=== PATIENT | male | born 1950 | race Caucasian/White ===

== ENCOUNTER 2017-09-23 19:09 | Emergency (ER) | payer OTHER, SELFPAY ==
[2017-09-23 19:30] VITALS: BP 149/88; PULSE 82; RESP 18; TEMP 36.4; O2SAT 96
[2017-09-23] MEDS: Normal Saline 1,000 ML 150 ML IV (19:30)
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
[2017-09-23 20:37] LABS: Abs Immature Grans 0.01 k/cumm (0.0-0.09); Absolute Basophil Count 0.02 k/cumm (0.0-0.2); Absolute Eosinophil Count 0.15 k/cumm (0.0-0.7); Absolute Lymphocyte Count 1.48 k/cumm (1.2-3.4); Absolute Monocyte Count 0.68 k/cumm (0.11-0.7); Absolute Neutrophil Count 5.62 k/cumm (1.2-6.7); Basophils % 0.3; Eosinophils % 1.9; HCT 48.4 % (40.0-50.0); HGB 16.8 g/dL (13.5-17.5); Immature Grans % 0.1; Lymphocytes % 18.6; Mean Corp. HGB Concentration 34.7 g/dL (32.0-36.0); Mean Corpuscular Hemoglobin 31.7 pg (27.0-33.0); Mean Corpuscular Volume 91.3 fL (80-95); Mean Platelet Volume 9.1 fL (8.0-11.0); Monocytes % 8.5; Neutrophils % 70.6; Platelet Count 205 x1000/uL (130-400); RBC Distribution Width 14.6 % (11.8-14.1); White Blood Cell Count 7.96 k/cumm (4.4-10.8)
[2017-09-23 20:50] LABS: ALT 34 U/L (12-78); AST 23 U/L (15-37); Albumin 4.2 g/dL (3.4-5.0); Alkaline Phosphatase 97 U/L (46-116); Anion Gap 11.4 mmol/L (3-11); BUN 26 mg/dL (7-18); Bilirubin, Total 0.8 mg/dL (0.2-1.0); CO2 23.6 mmol/L (21.0-32.0); CREATININE 0.95 mg/dL (0.70-1.30); Chloride 104 mmol/L (98-107); Glucose 103 mg/dL (70-100); Potassium 4.1 mmol/L (3.5-5.1); Sodium 139 mmol/L (136-145); Total Protein 8.4 g/dL (6.4-8.2)
[2017-09-23 20:55] LABS: Bilirubin Negative (Negative); Blood Small (Negative); Clarity Cloudy; Glucose Negative (Negative); Ketones Negative (Negative); Leukocyte Esterase Moderate (Negative); Nitrite Positive (Negative); Specific Gravity 1.015 (1.005-1.025); Urobilinogen 0.2 EU/dL (Up TO 0.2); pH 5.5 (5-8)
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
[2017-09-23 21:05] LABS: Bacteria Many HPF (Negative); C & S Indicated? Yes; Casts Negative LPF (Negative); Crystals Negative HPF (Negative); Epithelial Cells Negative HPF (Negative); Mucus Negative (Negative); Other Cells Negative (Negative); RBC Negative (0-2); WBC >50 HPF (0-5)
[2017-09-23] MEDS: Omnipaque 350 MG/ML 100 ML BTL IJ (21:28)
[2017-09-23] MEDS: Ciprofloxacin 250 MG TAB PO (21:40)
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
--- NOTE | 2017-09-24 10:01 | NUR.NOTE ---
Nursing Note: Prescription for Cipro was called into [facility] pharmacy in [place]. Gena Allen
== END 2017-09-23 22:20 | disposition home or self-care (01) ==
PROVIDERS: Emergency Provider Emergency Medicine
DX: S39.91XA Unspecified injury of abdomen, initial encounter (principal); N39.0 Urinary tract infection, site not specified; M79.644 Pain in right finger(s); V47.5XXA Car driver injured in collision with fixed or stationary object in traffic accident, initial encounter; Z87.440 Personal history of urinary (tract) infections; I10 Essential (primary) hypertension
CPT/HCPCS: 36415; 74177; 80053; 87077; 96361; 99285; 71260; 73140; 81003; 81015; 85025; 85610; 87086; 87186; 99284; J3490

== ENCOUNTER 2017-10-19 18:03 | Emergency (ER) | payer MEDICARE, SELFPAY ==
[2017-10-19 18:06] VITALS: PULSE 88; RESP 18; TEMP 36.5; O2SAT 98
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
[2017-10-19 18:43] LABS: Bilirubin Negative (Negative); Blood Large (Negative); Clarity Cloudy; Glucose Negative (Negative); Ketones Trace mg/dL (Negative); Leukocyte Esterase Large (Negative); Nitrite Positive (Negative); Specific Gravity 1.025 (1.005-1.025); Urobilinogen 0.2 EU/dL (Up TO 0.2); pH 5.5 (5-8)
[2017-10-19 19:06] LABS: Bacteria Few HPF (Negative); Casts Negative LPF (Negative); Crystals Negative HPF (Negative); Epithelial Cells Negative HPF (Negative); Mucus Negative (Negative); RBC >50 (0-2); WBC >50 HPF (0-5)
[2017-10-19 19:07] LABS: C & S Indicated? Yes
[2017-10-19] MEDS: LEVOFLOXACIN 500 MG, LEVOFLOXACIN 250 MG 750 MG PO (19:18)
[2017-10-19 19:20] VITALS: BP 140/99; PULSE 73; RESP 16; TEMP 36.9
--- NOTE | 2017-10-21 16:34 | W.ED.FU ---
Follow Up Plan: Jeff Méndez was seen here 10/19/17 and diagnosed with UTI and discharged home on Levaquin. Culture resulted today positive for MRSA, resistant to Cipro. Culture was sensitive to Bactrim. I called the patient and discussed the results with him and the plan for him to stop taking levofloxacin and switch to Bactrim. He is amenable to the plan, and results that he is feeling better with symptoms improving. He requested that I call the prescription in to [facility] in [place], which I did. Prescription was for double strength Bactrim twice daily for 3 days.
--- NOTE | 2017-10-21 16:37 | ED.FU.B_ITS ---
Follow Up Plan: Jeff Méndez was seen here 10/19/17 and diagnosed with UTI and discharged home on Levaquin. Culture resulted today positive for MRSA, resistant to Cipro. Culture was sensitive to Bactrim. I called the patient and discussed the results with him and the plan for him to stop taking levofloxacin and switch to Bactrim. He is amenable to the plan, and results that he is feeling better with symptoms improving. He requested that I call the prescription in to [facility] in [place], which I did. Prescription was for double strength Bactrim twice daily for 3 days.
== END 2017-10-19 19:41 | disposition home or self-care (01) ==
PROVIDERS: Emergency Provider Nurse Practitioner Family
DX: N39.0 Urinary tract infection, site not specified (principal); B95.62 Methicillin resistant Staphylococcus aureus infection as the cause of diseases classified elsewhere
CPT/HCPCS: 87077; 99283; 81003; 81015; 87086; 87186

== ENCOUNTER 2017-10-31 17:15 | Outpatient (REF) | payer MEDICARE, SELFPAY | END 2017-10-31 17:35 | LOC: LBN 17:15 | PROVIDERS: Visit Provider Nurse Practitioner Gerontology | DX: N39.0 Urinary tract infection, site not specified (principal) | CPT/HCPCS: 87077; 87086; 87186 ==

== ENCOUNTER → 2017-11-25 10:54 | Outpatient (BNVA) | payer MEDICARE, SELFPAY | PROVIDERS: Visit Provider Urology | DX: R33.9 Retention of urine, unspecified (principal); Z87.440 Personal history of urinary (tract) infections | CPT/HCPCS: 99213 ==

== ENCOUNTER 2018-03-18 12:10 | Outpatient (REF) | payer MEDICARE, SELFPAY ==
[2018-03-18 15:09] LABS: Bilirubin Negative (Negative); Blood Small (Negative); Clarity Sl Cloudy; Glucose Negative (Negative); Ketones Trace mg/dL (Negative); Leukocyte Esterase Small (Negative); Nitrite Positive (Negative); Urobilinogen 0.2 EU/dL (Up TO 0.2); pH 5.5 (5-8)
[2018-03-18 15:20] LABS: Bacteria Many HPF (Negative); C & S Indicated? Yes; Casts Negative LPF (Negative); Crystals Negative HPF (Negative); Epithelial Cells Few HPF (Negative); Mucus Negative (Negative); Other Cells Negative (Negative); WBC >50 HPF (0-5)
== END 2018-03-18 12:30 ==
LOC: LBN 12:10
PROVIDERS: Visit Provider Urology
DX: N39.0 Urinary tract infection, site not specified (principal)
CPT/HCPCS: 87077; 81003; 81015; 87086; 87186

== ENCOUNTER → 2018-03-31 12:27 | Outpatient (BNVA) | payer MEDICARE, SELFPAY | PROVIDERS: Visit Provider Nurse Practitioner Gerontology | DX: N39.0 Urinary tract infection, site not specified (principal); B95.62 Methicillin resistant Staphylococcus aureus infection as the cause of diseases classified elsewhere | CPT/HCPCS: 99213 ==

== ENCOUNTER 2018-03-31 18:36 | Outpatient (REF) | payer MEDICARE, SELFPAY | END 2018-03-31 18:56 | LOC: LBN 18:36 | PROVIDERS: Visit Provider Nurse Practitioner Gerontology | DX: N39.0 Urinary tract infection, site not specified (principal) | CPT/HCPCS: 87077; 87086; 87186 ==

== ENCOUNTER 2018-04-03 12:00 | Outpatient (RCR) | payer MEDICARE, SELFPAY ==
[2018-04-02] MEDS: Normal Saline Flush 10 ML SYR IVP (13:03)
[2018-04-03] MEDS: Normal Saline Flush 10 ML SYR IVP (13:34)
== END 2018-04-17 23:59 | disposition home or self-care (01) ==
LOC: INF 12:00
PROVIDERS: Visit Provider Nurse Practitioner Gerontology
DX: N39.0 Urinary tract infection, site not specified (principal)
CPT/HCPCS: 96365; J0878

== ENCOUNTER 2018-06-11 13:14 | Outpatient (CLI) | payer MEDICARE, SELFPAY | END 2018-06-11 13:34 | PROVIDERS: Visit Provider Urology | DX: N39.0 Urinary tract infection, site not specified (principal) | CPT/HCPCS: 87077; 87086; 87186 ==

== ENCOUNTER 2018-06-13 11:58 | Outpatient (RCR) | payer MEDICARE, SELFPAY ==
[2018-06-13] MEDS: Normal Saline Flush 10 ML SYR IVP (13:30)
== END 2018-06-17 23:59 | disposition home or self-care (01) ==
LOC: INF 11:58
PROVIDERS: Visit Provider Urology
DX: N39.0 Urinary tract infection, site not specified (principal)
CPT/HCPCS: 96365; J0878

== ENCOUNTER → 2018-06-17 09:34 | Outpatient (BNVA) | payer MEDICARE, SELFPAY | PROVIDERS: Visit Provider Urology | DX: R31.0 Gross hematuria (principal); Z87.440 Personal history of urinary (tract) infections; Z87.442 Personal history of urinary calculi; Z79.01 Long term (current) use of anticoagulants; I48.91 Unspecified atrial fibrillation | CPT/HCPCS: 99213 ==

== ENCOUNTER 2018-06-18 07:17 | Outpatient (CLI) | payer MEDICARE, SELFPAY ==
[2018-06-18 08:59] LABS: CREATININE 1.05 mg/dL (0.70-1.30)
--- NOTE | 2018-06-18 09:15 | DI.CT_ITS ---
SYMPTOM/DIAGNOSIS: HEMATURIA, R31.[address]: Comparison is made with 09/23/17 and 11/09/15. The noncontrast examination shows no evidence of nephrolithiasis, ureterolithiasis or hydronephrosis. No bladder stones are appreciated. There is scarring in the lung bases. Following contrast administration, CT scan of the abdomen and pelvis was performed. There are several tiny hypodense lesions seen within the liver. They are too small for further characterization. They appear stable and likely reflect cysts. No suspicious hepatic masses are seen. There are multiple stones seen within the gallbladder. No biliary ductal dilatation is present. The pancreas is unremarkable. Incidental note is made of a small duodenal diverticulum adjacent to the second portion of the duodenum. The spleen and adrenal glands are unremarkable. The kidneys show normal and symmetric enhancement. No suspicious solid renal mass is appreciated. The urinary bladder is intact. There is mild diffuse thickening of the wall of the urinary bladder. This was present on prior examinations. This may represent chronic bladder outlet obstruction or neurogenic bladder. Reproductive organs are unremarkable as visualized. The bowel shows no evidence of obstruction or inflammation. There is a normal appendix present. There is atherosclerosis of the abdominal aorta but no aneurysmal dilatation is present. No significant abdominal or pelvic adenopathy, ascites or pneumoperitoneum is seen. Surgical clips are seen in the central abdomen. Due to the patient's body habitus, portions of the anterior abdominal wall, particularly on the left, are not contained within the examination. Degenerative changes are seen in the spine. There is marked central spinal stenosis seen at L 2-3, L 3-4 and L 4-5. Delayed images through the renal collecting system were performed. No filling defects are present in the renal collecting system. IMPRESSION: 1. No evidence of nephrolithiasis or hydronephrosis. No evidence of a renal or bladder mass. 2. Persistent diffuse urinary bladder wall thickening. This may be sequelae of chronic bladder outlet obstruction or neurogenic bladder. Cystitis cannot be entirely excluded. Please correlate clinically. 3. Cholelithiasis. No evidence of biliary ductal dilatation.
[2018-06-18] MEDS: Omnipaque 350 MG/ML 100 ML BTL IJ (09:35)
== END 2018-06-18 07:37 ==
PROVIDERS: PCP Internal Medicine; Visit Provider Urology
DX: R31.0 Gross hematuria (principal); N32.89 Other specified disorders of bladder; K80.20 Calculus of gallbladder without cholecystitis without obstruction
CPT/HCPCS: 74178; 82565; J3490

== ENCOUNTER → 2018-06-19 12:57 | Outpatient (BNVA) | payer MEDICARE, SELFPAY | PROVIDERS: PCP Internal Medicine; Visit Provider Urology | DX: R33.9 Retention of urine, unspecified (principal); N39.0 Urinary tract infection, site not specified | CPT/HCPCS: 52000; 81003; 99213 ==

== ENCOUNTER 2018-06-19 14:39 | Outpatient (RCR) | payer MEDICARE, SELFPAY | END 2018-07-18 23:59 | disposition home or self-care (01) | LOC: INF 14:39 | PROVIDERS: PCP Internal Medicine; Visit Provider Urology | DX: N39.0 Urinary tract infection, site not specified (principal) | CPT/HCPCS: 52000; 81003; 96365; 99213; 87086; J0878 ==

== ENCOUNTER 2018-06-19 16:03 | Outpatient (REF) | payer MEDICARE, SELFPAY | END 2018-06-19 16:23 | LOC: LBN 16:03 | PROVIDERS: PCP Internal Medicine; Visit Provider Urology | DX: R31.9 Hematuria, unspecified (principal); N39.0 Urinary tract infection, site not specified; A41.9 Sepsis, unspecified organism | CPT/HCPCS: 87086 ==

== ENCOUNTER 2018-07-01 10:41 | Outpatient (REF) | payer MEDICARE, SELFPAY | END 2018-07-01 11:01 | LOC: LBN 10:41 | PROVIDERS: PCP Internal Medicine; Visit Provider Urology | DX: N39.0 Urinary tract infection, site not specified (principal) | CPT/HCPCS: 87077; 87086; 87186 ==

== ENCOUNTER 2018-08-04 17:08 | Inpatient (IN) | payer MEDICARE, SELFPAY ==
[2018-08-04] VITALS (7 sets, daily range): BP systolic 102–141; BP diastolic 68–85; PULSE 77–84; RESP 14–20; TEMP 36.6–37.2; O2SAT 93–97
--- NOTE | 2018-08-04 17:37 | DI.CT_ITS ---
SYMPTOM/DIAGNOSIS: ABD PAIN, TTP LUQ, DIARRHEA ABDOMEN AND PELVIC CT: Comparison is made with 06/18/18. Images were performed from the lung bases through the ischial tuberosities after IV and without oral contrast. A small portion of the anterior abdominal wall is not included in the field of view due to the patient's body habitus. The stomach is quite distended. There are also abnormally distended loops of proximal small bowel. Distal bowel loops are decompressed. There is an apparent transition point in the mid abdomen near surgical clips. There is no evidence of free air or free fluid. The urinary bladder is again noted to be quite distended and shows wall thickening. The prostate appears small and the patient could be status post prostatectomy. The appendix appears normal. Marked thinning of the anterior abdominal wall is again noted. There is scarring at the lung bases. There are a few tiny liver cysts. Gallstones are noted. There is no biliary dilatation or gallbladder wall thickening. The pancreas and adrenals are unremarkable. There is no evidence of hydronephrosis or renal calculi. IMPRESSION: Small bowel obstruction.
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
[2018-08-04] MEDS: Normal Saline 1,000 ML 1000 ML IV (18:01)
[2018-08-04] MEDS: Ondansetron 4 MG/2 ML VIAL IVP (18:01)
[2018-08-04 18:14] LABS: Abs Immature Grans 0.02 k/cumm (0.0-0.09); Absolute Basophil Count 0.01 k/cumm (0.0-0.2); Absolute Eosinophil Count 0.07 k/cumm (0.0-0.7); Absolute Lymphocyte Count 0.91 k/cumm (1.2-3.4); Absolute Monocyte Count 0.77 k/cumm (0.11-0.7); Absolute Neutrophil Count 8.89 k/cumm (1.2-6.7); Basophils % 0.1; Eosinophils % 0.7; HCT 47.8 % (40.0-50.0); Immature Grans % 0.2; Lymphocytes % 8.5; Mean Corp. HGB Concentration 33.5 g/dL (32.0-36.0); Mean Corpuscular Volume 92.6 fL (80-95); Mean Platelet Volume 9.3 fL (8.0-11.0); Monocytes % 7.2; Neutrophils % 83.3; Platelet Count 245 x1000/uL (130-400); RBC 5.16 m/cumm (4.50-6.00); RBC Distribution Width 15.3 % (11.8-14.1); White Blood Cell Count 10.67 k/cumm (4.4-10.8)
[2018-08-04 18:28] LABS: ALT 25 U/L (12-78); AST 23 U/L (15-37); Albumin 3.8 g/dL (3.4-5.0); Alkaline Phosphatase 72 U/L (46-116); Anion Gap 10.8 mmol/L (3-11); BUN 23 mg/dL (7-18); CO2 30.2 mmol/L (21.0-32.0); CREATININE 0.96 mg/dL (0.70-1.30); Calcium 9.9 mg/dL (8.5-10.1); Chloride 102 mmol/L (98-107); Glucose 121 mg/dL (70-100); Lipase 125 U/L (73-393); Potassium 4.3 mmol/L (3.5-5.1); Sodium 143 mmol/L (136-145); Total Protein 7.9 g/dL (6.4-8.2)
[2018-08-04] MEDS: Omnipaque 350 MG/ML 100 ML BTL IJ (19:10)
[2018-08-04] MEDS: Normal Saline Flush 10 ML SYR IVP ×2 (19:21→23:07)
--- NOTE | 2018-08-04 20:29 | DI.VRAD_ITS ---
Addendum created by Sasha Altman MD on 08/04/2018 8:34:43 PM EDT THIS REPORT CONTAINS FINDINGS THAT MAY BE CRITICAL TO PATIENT CARE. The findings were verbally communicated via telephone conference with MIGDALIA DENIS at 8:33 PM EDT on 08/04/2018. The findings were acknowledged and understood. Initial report created on 08/04/2018 8:29:22 PM EDT EXAM: CT Abdomen and Pelvis With Contrast EXAM DATE/TIME: 08/04/2018 5:39 PM CLINICAL HISTORY: 68 years old, male; Localized; Left upper quadrant (luq); Patient HX: Abdominal pain, ttp luq, loose stool, diarrhea TECHNIQUE: Imaging protocol: Axial computed tomography images of the abdomen and pelvis with intravenous contrast. Coronal and sagittal reformatted images were created and reviewed. COMPARISON: CT ABDOMEN PELVIS WO/W 02/22/2018 09:17 FINDINGS: Lungs: There is reticular markings at the lung bases similar to the prior study consistent with scar. There are stable punctate calcifications in the right posterior costophrenic angle. Heart: The heart remains enlarged with coronary artery calcifications. Mediastinum: There is a small hiatal hernia. ABDOMEN: Liver: Stable multiple hypodense densities throughout the liver consistent with hepatic cysts. Stable calcified gallstones. No dilated biliary ducts. Gallbladder and bile ducts: See Liver Finding. Pancreas: Normal. No ductal dilation. Spleen: Normal. No splenomegaly. Adrenals: Normal. No mass. Kidneys and ureters: Normal. No hydronephrosis. Stomach and bowel: There is marked fluid distention of the stomach and proximal small bowel with a transition near surgical clips in the right mid abdomen series 4 image 46 on the axial sequences. The colon and terminal ileum are unremarkable. Appendix: No evidence of appendicitis. PELVIS: Bladder: Again noted is a large ventral abdominal wall hernia containing liver, stomach, small bowel, and bladder. The bladder is distended with thickened mcdonnell and herniates through the large ventral abdominal wall hernia. The bladder is distended and extends to the L5 vertebral body superiorly consistent with chronic bladder outlet obstruction. Reproductive: The prostate and seminal vesicles are unremarkable. ABDOMEN and PELVIS: Intraperitoneal space: Normal. No free air. No significant fluid collection. Bones/joints: There is multilevel degenerative changes of the thoracic and lumbar spine. Suspect old right posterior rib fractures. Degenerative changes both hips. Soft tissues: Again noted large ventral abdominal wall hernia similar to prior study. There is fat distention of the inguinal canals. Due to the patient's body habitus, portions of the anterior abdominal wall are not contained within the examination. Vasculature: Normal. No abdominal aortic aneurysm. Lymph nodes: Normal. No enlarged lymph nodes. IMPRESSION: 1. High-grade small bowel obstruction with transition in the right mid abdomen with fluid distended stomach and proximal small bowel. 2. Chronic bladder outlet obstruction as discussed above. 3. Bibasilar reticular markings with stable punctate calcifications. 4. Stable cardiomegaly and coronary artery calcification. 5. Large ventral abdominal wall hernia. 6. Stable hepatic cysts. Stable gallstones. 7. Hiatal hernia. 8. Suspect old right posterior rib fractures. Stable degenerative changes of the spine and hips. Dictated and Authenticated by: Sasha Altman MD. Ordering:LINDEN Rodriguez MD
[2018-08-04] MEDS: Lidocaine 2% Viscous 15 ML CUP (20:45)
[2018-08-04 21:00] LABS: Bilirubin Negative (Negative); Blood Moderate (Negative); Clarity Sl Cloudy; Glucose Negative (Negative); Ketones Negative (Negative); Leukocyte Esterase Small (Negative); Nitrite Positive (Negative); Specific Gravity 1.015 (1.005-1.025); Urobilinogen 0.2 EU/dL (Up TO 0.2); pH 7.5 (5-8)
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
[2018-08-04 21:10] LABS: Bacteria Many HPF (Negative); Crystals Negative HPF (Negative); Epithelial Cells Rare HPF (Negative); Other Cells Negative (Negative); RBC >50 (0-2); WBC 20-50 HPF (0-5)
[2018-08-04 21:11] LABS: C & S Indicated? Yes; Casts Negative LPF (Negative); Mucus Moderate (Negative)
--- NOTE | 2018-08-04 21:51 | DI.RAD_ITS ---
SYMPTOM/DIAGNOSIS: NG PLACED PORTABLE CHEST: Two views are performed, both of which show suboptimal penetration. A nasogastric tube has been placed. The tip is seen in the fundus of the stomach. The heart size appears normal. The lungs show mild basilar scarring. No infiltrate or effusion or pulmonary edema is visible. IMPRESSION: Status post NG tube placement.
--- NOTE | 2018-08-04 22:27 | DI.VRAD_ITS ---
EXAM: XR Chest, 1 View EXAM DATE/TIME: 08/04/2018 9:51 PM CLINICAL HISTORY: 68 years old, male; Device placement; Patient HX: Ng tube placement TECHNIQUE: Imaging protocol: XR of the chest, 1 view. COMPARISON: CR CHEST 2 VIEWS PA,LAT 05/03/2016 10:46 FINDINGS: Tubes, catheters and devices: There is history of placement of a nasogastric tube. There are 2 films submitted for interpretation. On the second film the tip of the tube is just below the left hemidiaphragm. Lungs: There is mild reticular markings at the lung bases. There is no focal consolidation. There is blunting of the lateral costophrenic angle. Pleural space: See Lungs Finding. Heart/Mediastinum: The heart is enlarged. Bones/joints: Result available degenerative changes of the thoracic spine. There is degenerative changes of both shoulders. IMPRESSION: Nasogastric tube just below the left hemidiaphragm. But the nasogastric tube is not well seen due to film technique. Dictated and Authenticated by: Sasha Altman MD. Ordering:LINDEN Rodriguez MD
[2018-08-04] MEDS: Lactated Ringers 1,000 ML 125 ML IV (23:07)
[2018-08-05] MEDS: Pramipexole 0.5 MG TAB 2 MG PO ×2 (00:57→21:14)
[2018-08-05] MEDS: Enoxaparin 40 MG/0.4 ML SYR SC (01:02)
[2018-08-05] MEDS: FAMOTIDINE 20 MG/50 ML BAG 200 MG IVPB ×3 (01:03→21:19)
[2018-08-05] MEDS: DAPTOmycin 500 MG in Normal Saline 50 ML 100 MG IVPB (01:41)
--- NOTE | 2018-08-05 01:51 | NUR.NOTE ---
Nursing Note: Applied continuous SaO2 monitor as patient is not wearing CPAP d/t NG tube, nurse explained purpose and benefits of monitor and risks of not wearing CPAP, pt refuses to wear continuous monitor at this time. Pt SaO2 97% RA prior to removal.
[2018-08-05 04:16] VITALS: BP 109/75; PULSE 77; RESP 18; TEMP 37; O2SAT 97
[2018-08-05] MEDS: Lactated Ringers 1,000 ML 125 ML IV ×2 (05:53→14:24)
[2018-08-05 07:11] LABS: Anion Gap 6.2 mmol/L (3-11); BUN 22 mg/dL (7-18); CO2 24.8 mmol/L (21.0-32.0); CREATININE 0.89 mg/dL (0.70-1.30); Calcium 8.8 mg/dL (8.5-10.1); Chloride 108 mmol/L (98-107); Glucose 100 mg/dL (70-100); Sodium 139 mmol/L (136-145)
--- NOTE | 2018-08-05 07:21 | PGE_ITS ---
Documented by User: ABRAHAM Limon 08/05/18 07:24 Date of Service Date of service: 08/05/18 Time of Service: 07:19 Assessment and Plan (1) History of laparotomy: Current visit: No Status: Chronic (2) Small bowel obstruction: Current visit: Yes Status: Acute Denies abdominal pain, N or V. (+) BMs. Passing some flatus. DIET- Continue NPO. NG tube- Minimal out over night <50ccs. Will order for the NG tube to be clamped and to check residuals in 3 hours. ACTIVITY- Encouraged ambulation and sitting up OOB. PAIN- Patient denies pain at this time. Subjective Interval history since last seen: I am feeling much better than last night. Denies any nausea or vomiting. He has been tolerating the NG tube well. Reports that he had 2 BMs last night of loose stool. Exam Const General: cooperative and comfortable Orientation: alert and oriented x3 Resp Effort & Inspection: normal respiratory effort, no audible wheezes and no cough GI Inspection: normal to inspection, non-distended and obesity Palpation: soft, no guarding and nontender Auscultation: normal bowel sounds Objective Objective Clinical Data: Abnormal lab results 08/04/18 08/04/18 08/04/18 Range/Units 18:00 18:00 20:45 RDW 15.3 H (11.8-14.1) % Absolute Neutrophils 8.89 H (1.2-6.7) k/cumm Absolute Lymphocytes 0.91 L (1.2-3.4) k/cumm Absolute Monocytes 0.77 H (0.11-0.7) k/cumm Chloride (98-107) mmol/L BUN 23 H (7-18) mg/dL Glucose 121 H (70-100) mg/dL Urine Protein 30 H (Negative) mg/dL Urine Blood Moderate H (Negative) Urine Nitrite Positive H (Negative) Ur Leukocyte Esterase Small H (Negative) Urine RBC >50 H (0-2) 08/05/18 Range/Units 06:14 RDW (11.8-14.1) % Absolute Neutrophils (1.2-6.7) k/cumm Absolute Lymphocytes (1.2-3.4) k/cumm Absolute Monocytes (0.11-0.7) k/cumm Chloride 108 H (98-107) mmol/L BUN 22 H (7-18) mg/dL Glucose (70-100) mg/dL Urine Protein (Negative) mg/dL Urine Blood (Negative) Urine Nitrite (Negative) Ur Leukocyte Esterase (Negative) Urine RBC (0-2) Vital Signs Temperature 37 C 08/05/18 04:16 Temperature Source Tympanic 08/05/18 04:16 Pulse 77 08/05/18 04:16 Pulse Rhythm Regular 08/04/18 23:52 Respiratory Rate 18 08/05/18 04:16 Respiratory Effort Non-Labored 08/04/18 23:52 Respiratory Depth Normal 08/04/18 23:52 Respiratory Pattern Normal 08/04/18 23:52 Blood Pressure 109/75 08/05/18 04:16 Blood Pressure Position Sitting 08/04/18 17:14 Pulse Oximetry 97 08/05/18 04:16 Oxygen Delivery Method Room Air 08/05/18 04:16 Oxygen Flow Rate 0 08/05/18 04:16 Pain Level 0 08/04/18 23:52 Intake & Output 08/04/18 08/05/18 08/05/18 18:59 06:59 18:59 Intake Total 1994.833 / 833 Output Total 950 / 950 Balance 1045.833 / 1045.833 Weight 132 kg 132 kg Intake: IV 1945.833 / 1945.833 Oral 50 / 50 Output: Urine 950 / 950 Other: # Voids 1 Laboratory Results WBC 10.67 k/cumm (4.4-10.8) 08/04/18 18:00 RBC 5.16 m/cumm (4.50-6.00) 08/04/18 18:00 Hgb 16.0 g/dL (13.5-17.5) 08/04/18 18:00 Hct 47.8 % (40.0-50.0) 08/04/18 18:00 MCV 92.6 fL (80-95) 08/04/18 18:00 MCH 31.0 pg (27.0-33.0) 08/04/18 18:00 MCHC 33.5 g/dL (32.0-36.0) 08/04/18 18:00 RDW 15.3 % (11.8-14.1) H 08/04/18 18:00 Plt Count 245 x1000/uL (130-400) 08/04/18 18:00 MPV 9.3 fL (8.0-11.0) 08/04/18 18:00 Immature Gran % 0.2 08/04/18 18:00 Neutrophils % 83.3 08/04/18 18:00 Lymphocytes % 8.5 08/04/18 18:00 Monocytes % 7.2 08/04/18 18:00 Eosinophils % 0.7 08/04/18 18:00 Basophils % 0.1 08/04/18 18:00 Absolute Neutrophils 8.89 k/cumm (1.2-6.7) H 08/04/18 18:00 Absolute Lymphocytes 0.91 k/cumm (1.2-3.4) L 08/04/18 18:00 Absolute Monocytes 0.77 k/cumm (0.11-0.7) H 08/04/18 18:00 Absolute Eosinophils 0.07 k/cumm (0.0-0.7) 08/04/18 18:00 Absolute Basophils 0.01 k/cumm (0.0-0.2) 08/04/18 18:00 Sodium 139 mmol/L (136-145) 08/05/18 06:14 Potassium 4.0 mmol/L (3.5-5.1) 08/05/18 06:14 Chloride 108 mmol/L (98-107) H 08/05/18 06:14 Carbon Dioxide 24.8 mmol/L (21.0-32.0) 08/05/18 06:14 Anion Gap 6.2 mmol/L (3-11) 08/05/18 06:14 BUN 22 mg/dL (7-18) H 08/05/18 06:14 Creatinine 0.89 mg/dL (0.70-1.30) 08/05/18 06:14 Estimated GFR/1.73 m2 >= 60.00 (mL/min/1.73m2) 08/05/18 06:14 Glucose 100 mg/dL (70-100) 08/05/18 06:14 Calcium 8.8 mg/dL (8.5-10.1) 08/05/18 06:14 Magnesium 2.0 mg/dL (1.8-2.4) 08/05/18 06:14 Total Bilirubin 1.0 mg/dL (0.2-1.0) 08/04/18 18:00 AST 23 U/L (15-37) 08/04/18 18:00 ALT 25 U/L (12-78) 08/04/18 18:00 Alkaline Phosphatase 72 U/L (46-116) 08/04/18 18:00 Total Protein 7.9 g/dL (6.4-8.2) 08/04/18 18:00 Albumin 3.8 g/dL (3.4-5.0) 08/04/18 18:00 Lipase 125 U/L (73-393) 08/04/18 18:00 Urine Color Yellow (Yellow) 08/04/18 20:45 Urine Clarity Sl cloudy 08/04/18 20:45 Urine pH 7.5 (5-8) 08/04/18 20:45 Ur Specific [place] 1.015 (1.005-1.025) 08/04/18 20:45 Urine Protein 30 mg/dL (Negative) H 08/04/18 20:45 Urine Ketones Negative mg/dL (Negative) 08/04/18 20:45 Urine Blood Moderate (Negative) H 08/04/18 20:45 Urine Nitrite Positive (Negative) H 08/04/18 20:45 Urine Bilirubin Negative (Negative) 08/04/18 20:45 Urine Urobilinogen 0.2 EU/dL (Up TO 0.2) 08/04/18 20:45 Ur Leukocyte Esterase Small (Negative) H 08/04/18 20:45 Urine RBC >50 (0-2) H 08/04/18 20:45 Urine WBC 20-50 HPF (0-5) 08/04/18 20:45 Ur Epithelial Cells Rare HPF (Negative) 08/04/18 20:45 Urine Crystals Negative HPF (Negative) 08/04/18 20:45 Urine Bacteria Many HPF (Negative) 08/04/18 20:45 Urine Casts Negative LPF (Negative) 08/04/18 20:45 Urine Mucus Moderate (Negative) 08/04/18 20:45 Urine Other Negative (Negative) 08/04/18 20:45 Ur Culture Indicated? Yes 08/04/18 20:45 Urine Glucose Negative mg/dL (Negative) 08/04/18 20:45 Documented by User: Geovanna Barnes, DO 08/05/18 09:36 Assessment and Plan (1) Recurrent UTI (urinary tract infection): Current visit: No Status: Chronic pt see and examined agree w/ above pt feeling better today had lg BM no pain or tightness today like he was having at home his nl s/s of uti or withdrawl- his daughter feels he was having these s/s yest He is a chronic pt of Dr. Hill. I did notify Dr Hill's office if he has time to stop by and see the pt. UA was dirty cult is pd. He is on rocephin pt is a long time standing self- cath person
[2018-08-05 07:34] LABS: Platelet Count 242 x1000/uL (130-400)
--- NOTE | 2018-08-05 09:09 | DI.RAD_ITS ---
SYMPTOM/DIAGNOSIS: SBO FLAT AND UPRIGHT ABDOMEN: Comparison is made with deputy register of deeds view of the CT abdomen and pelvis 04 August 2018 A nasogastric tube has been placed with the tip in the fundus of the stomach. The side hole may be in the distal esophagus. There are again noted to be dilated loops of small bowel greatest in the left upper and mid portions of the abdomen. The degree of dilatation may have slightly decreased when compared with the previous exam. There is no evidence of free air. There are tiny bilateral pleural effusions and mild basilar atelectasis. IMPRESSION: Mild improvement of small bowel dilatation status post placement of nasogastric tube.
[2018-08-05 09:15] VITALS: BP 125/82; PULSE 68; RESP 18; TEMP 36.3; O2SAT 95
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
[2018-08-05] MEDS: Furosemide 40 MG/4 ML VIAL IVP (09:40)
[2018-08-05] MEDS: Tamsulosin 0.4 MG CAPCR PO (09:40)
--- NOTE | 2018-08-05 11:43 | PDOC.CMIN ---
Care Management Initial Assess REASON FOR HOSPITALIZATION:: SBO PAST MEDICAL HISTORY/PAST SURGICAL HISTORY:: Medical: chronic bladder outlet obstruction, bibasilar reticular markings with stable punctate calcifications, stable cardiomegaly and coronary artery calcification, lg ventral abdominal hernia, hepatic cysts, gallstones, hiatal hernia,DJD spine and hips, ? old rib fxs, chronic marijuana use, TBI, cognitive deficit as late effect of TBI, memory deficits, sepsis associated hypotension, mental status change, recurrent cellulitis/abscess of lower leg, recurrent UTI's, obesity, MARTÍN, chronic a-fib, depression with anxiety, restless leg syndrome. Surgical: H/O laparotomy PREVIOUS FUNCTIONAL STATUS/SOCIAL/FAMILY SUPPORTS:: He lives with his Karissa in [place], but they are currently residing at their camp in [place]. They have two adult children, a son and daughter, both of whom live locally. They have three grandchildren. They live very separate lives with each having a floor in the home. He lives in the basement. They have participated in counseling in the past. He is a who gets all [facility] primary [facility] [place]. states his daughter Anel is primary caregiver. He is usually independent with ADL's and can ambulate independently. CURRENT FUNCTIONAL STATUS:: He is sitting up in chair in room when CM enters. There are multiple family members in room. His came in and was able to answer some of questions re his insurance. ADVANCE DIRECTIVES:: Document is on file at [facility]. His Karissa is agent anf daughter Anel is alternate. Has patient been provided with information about the portal?: Yes Did the patient sign up for the portal?: No INSURANCE COVERAGE / FINANCIAL ISSUES:: Medicare. Receives PCP care at [facility] in [place], and specialty care at [facility]. Does not have supplemental insurance for his Medicare, although he did have it at one time previously. CURRENT HOME/COMMUNITY SERVICES/EQUIPMENT:: No services. Uses CPAP, and also does self-cath at home. PRIMARY CARE PHYSICIAN:: Remberto Aguilar MD at [facility] [place]. POTENTIAL DISCHARGE NEEDS:: Will need follow-up with PCP and surgeon as directed. PATIENT/FAMILY EDUCATION NEEDS:: Review d/c instructions re meds and activity levels. Review Ask me How questions to assure patient/family understanding of reason for hospitalization. ANTICIPATED BARRIERS TO DISCHARGE:: none identified TRANSPORTATION:: via car with family PLAN:: d/c home as per MD, no services anticipated.
[2018-08-05] MEDS: Magnesium Citrate 300 ML BTL PO (13:17)
--- NOTE | 2018-08-05 14:20 | INITIAL_ITS ---
Care Management Initial Assess REASON FOR HOSPITALIZATION:: SBO PAST MEDICAL HISTORY/PAST SURGICAL HISTORY:: Medical: chronic bladder outlet obstruction, bibasilar reticular markings with stable punctate calcifications, stable cardiomegaly and coronary artery calcification, lg ventral abdominal hernia, hepatic cysts, gallstones, hiatal hernia,DJD spine and hips, ? old rib fxs, chronic marijuana use, TBI, cognitive deficit as late effect of TBI, memory deficits, sepsis associated hypotension, mental status change, recurrent cellulitis/abscess of lower leg, recurrent UTI's, obesity, MARTÍN, chronic a-fib, depression with anxiety, restless leg syndrome. Surgical: H/O laparotomy PREVIOUS FUNCTIONAL STATUS/SOCIAL/FAMILY SUPPORTS:: He lives with his Karissa in [place], but they are currently residing at their camp in [place]. They have two adult children, a son and daughter, both of whom live locally. They have three grandchildren. They live very separate lives with each having a floor in the home. He lives in the basement. They have participated in counseling in the past. He is a who [place] all [place] [facility] [place] [facility] [place]. states his daughter Anel is primary caregiver. He is usually independent with ADL's and can ambulate independently. CURRENT FUNCTIONAL STATUS:: He is sitting up in chair in room when CM enters. There are multiple family members in room. His came in and was able to answer some of questions re his insurance. ADVANCE DIRECTIVES:: Document is on file at [facility]. His Karissa is agent anf daughter Anel is alternate. Has patient been provided with information about the portal?: Yes Did the patient sign up for the portal?: No INSURANCE COVERAGE / FINANCIAL ISSUES:: Medicare. Receives PCP care at [facility] in [place], and specialty care at [facility]. Does not have supplemental insurance for his Medicare, although he did have it at one time previously. CURRENT HOME/COMMUNITY SERVICES/EQUIPMENT:: No services. Uses CPAP, and also does self-cath at home. PRIMARY CARE PHYSICIAN:: Remberto [facility]ilar MD at [facility] [place]. POTENTIAL DISCHARGE NEEDS:: Will need follow-up with PCP and surgeon as directed. PATIENT/FAMILY EDUCATION NEEDS:: Review d/c instructions re meds and activity levels. Review Ask me How questions to assure patient/family understanding of reason for hospitalization. ANTICIPATED BARRIERS TO DISCHARGE:: none identified TRANSPORTATION:: via car with family PLAN:: d/c home as per MD, no services anticipated.
[2018-08-05 15:03] VITALS: BP 126/79; PULSE 83; RESP 17; TEMP 36.9; O2SAT 96
[2018-08-05] MEDS: levoFLOXacin 750 MG/150 ML BAG 100 MG IVPB (22:56)
[2018-08-06 00:37] VITALS: BP 115/86; PULSE 77; RESP 16; TEMP 37; O2SAT 96
[2018-08-06] MEDS: DAPTOmycin 500 MG in Normal Saline 50 ML 100 MG IVPB (00:37)
[2018-08-06] MEDS: Lactated Ringers 1,000 ML 75 ML IV (04:22)
--- NOTE | 2018-08-06 07:19 | W.PM.PROGNOT ---
Date of Service Date of service: 08/06/18 Time of Service: : Assessment and Plan (1) Small bowel obstruction: Current visit: Yes Status: Acute (+) BM and Bowel sounds. Abdominal pain has resolved. No nausea or vomiting. Tolerating a normal diet. Amb. Independently Disposition- D/C home later today. Subjective Interval history since last seen: Arrived with Mr. Méndez ambulating in the hallway independently. Hereports that he has been tolerating normal diet thus far. He ate a turkey sandwich last night. Denies any abdominal pain, nausea or vomiting. (+) BMs and urinating without difficulty. Exam Const General: cooperative, healthy appearing and comfortable Orientation: alert and oriented x3 Resp Effort & Inspection: normal respiratory effort, no audible wheezes and no cough GI Inspection: normal to inspection and obesity Palpation: soft, no guarding and nontender Auscultation: normal bowel sounds Objective Objective Clinical Data: Vital Signs Temperature 37.0 C 08/06/18 00:37 Temperature Source Skin 08/06/18 00:37 Pulse 77 08/06/18 00:37 Pulse Rhythm Regular 08/06/18 00:37 Respiratory Rate 16 08/06/18 00:37 Respiratory Effort 08/06/18 00:37 Respiratory Depth Normal 08/06/18 00:37 Respiratory Pattern Normal 08/06/18 00:37 Blood Pressure 115/86 08/06/18 00:37 Blood Pressure Position Sitting 08/04/18 17:14 Pulse Oximetry 96 08/06/18 00:37 Oxygen Delivery Method Room Air 08/06/18 00:37 Oxygen Flow Rate 0 08/06/18 00:37 Pain Level 0 08/06/18 00:37 Intake & Output 08/05/18 08/06/18 08/06/18 18:59 06:59 18:59 Intake Total 2127.083 / 3420.000 1292.917 / 3420.000 Output Total 3000 / 3000 Balance -872.917 / 776.170 4234.917 / 420.000 Intake: IV 1577.083 / 2100.000 522.917 / 2100.000 Oral 550 / 1320 770 / 1320 Output: Gastric Drainage 100 / 100 Left Nare 100 / 100 Urine 2900 / 2900 Other: Urine Color Yellow Urine Appearance Clear Comment pt self cath'd in br at this time and flushed. Stool Size Moderate Stool Characteristics Brown Voiding Methods Toilet Self-Catheterization Laboratory Results WBC 10.67 k/cumm (4.4-10.8) 08/04/18 18:00 RBC 5.16 m/cumm (4.50-6.00) 08/04/18 18:00 Hgb 16.0 g/dL (13.5-17.5) 08/04/18 18:00 Hct 47.8 % (40.0-50.0) 08/04/18 18:00 MCV 92.6 fL (80-95) 08/04/18 18:00 MCH 31.0 pg (27.0-33.0) 08/04/18 18:00 MCHC 33.5 g/dL (32.0-36.0) 08/04/18 18:00 RDW 15.3 % (11.8-14.1) H 08/04/18 18:00 Plt Count 242 x1000/uL (130-400) 08/05/18 06:14 MPV 9.3 fL (8.0-11.0) 08/04/18 18:00 Immature Gran % 0.2 08/04/18 18:00 Neutrophils % 83.3 08/04/18 18:00 Lymphocytes % 8.5 08/04/18 18:00 Monocytes % 7.2 08/04/18 18:00 Eosinophils % 0.7 08/04/18 18:00 Basophils % 0.1 08/04/18 18:00 Absolute Neutrophils 8.89 k/cumm (1.2-6.7) H 08/04/18 18:00 Absolute Lymphocytes 0.91 k/cumm (1.2-3.4) L 08/04/18 18:00 Absolute Monocytes 0.77 k/cumm (0.11-0.7) H 08/04/18 18:00 Absolute Eosinophils 0.07 k/cumm (0.0-0.7) 08/04/18 18:00 Absolute Basophils 0.01 k/cumm (0.0-0.2) 08/04/18 18:00 Sodium 139 mmol/L (136-145) 08/05/18 06:14 Potassium 4.0 mmol/L (3.5-5.1) 08/05/18 06:14 Chloride 108 mmol/L (98-107) H 08/05/18 06:14 Carbon Dioxide 24.8 mmol/L (21.0-32.0) 08/05/18 06:14 Anion Gap 6.2 mmol/L (3-11) 08/05/18 06:14 BUN 22 mg/dL (7-18) H 08/05/18 06:14 Creatinine 0.89 mg/dL (0.70-1.30) 08/05/18 06:14 Estimated GFR/1.73 m2 >= 60.00 (mL/min/1.73m2) 08/05/18 06:14 Glucose 100 mg/dL (70-100) 08/05/18 06:14 Calcium 8.8 mg/dL (8.5-10.1) 08/05/18 06:14 Magnesium 2.0 mg/dL (1.8-2.4) 08/05/18 06:14 Total Bilirubin 1.0 mg/dL (0.2-1.0) 08/04/18 18:00 AST 23 U/L (15-37) 08/04/18 18:00 ALT 25 U/L (12-78) 08/04/18 18:00 Alkaline Phosphatase 72 U/L (46-116) 08/04/18 18:00 Total Protein 7.9 g/dL (6.4-8.2) 08/04/18 18:00 Albumin 3.8 g/dL (3.4-5.0) 08/04/18 18:00 Lipase 125 U/L (73-393) 08/04/18 18:00 Urine Color Yellow (Yellow) 08/04/18 20:45 Urine Clarity Sl cloudy 08/04/18 20:45 Urine pH 7.5 (5-8) 08/04/18 20:45 Ur Specific [place] 1.015 (1.005-1.025) 08/04/18 20:45 Urine Protein 30 mg/dL (Negative) H 08/04/18 20:45 Urine Ketones Negative mg/dL (Negative) 08/04/18 20:45 Urine Blood Moderate (Negative) H 08/04/18 20:45 Urine Nitrite Positive (Negative) H 08/04/18 20:45 Urine Bilirubin Negative (Negative) 08/04/18 20:45 Urine Urobilinogen 0.2 EU/dL (Up TO 0.2) 08/04/18 20:45 Ur Leukocyte Esterase Small (Negative) H 08/04/18 20:45 Urine RBC >50 (0-2) H 08/04/18 20:45 Urine WBC 20-50 HPF (0-5) 08/04/18 20:45 Ur Epithelial Cells Rare HPF (Negative) 08/04/18 20:45 Urine Crystals Negative HPF (Negative) 08/04/18 20:45 Urine Bacteria Many HPF (Negative) 08/04/18 20:45 Urine Casts Negative LPF (Negative) 08/04/18 20:45 Urine Mucus Moderate (Negative) 08/04/18 20:45 Urine Other Negative (Negative) 08/04/18 20:45 Ur Culture Indicated? Yes 08/04/18 20:45 Urine Glucose Negative mg/dL (Negative) 08/04/18 20:45
--- NOTE | 2018-08-06 07:22 | W.PM.DS.N ---
Date of service: 08/06/18 Time of Service: 07:22 DS: Diagnosis Discharge Diagnosis (1) Small bowel obstruction: Status: Acute Discharge Plan Disposition Patient Disposition: HOME Condition: Good Discharge Details Reason For Visit: SBO Admit Date/Time: 08/04/18 20:40 Admit Provider: Geovanna Barnes Attending Provider: Geovanna Barnes Primary Care Provider: Remberto Aguilar [facility] Course Hospital Course: 68 y/o male presented to the ER on 08/04 with complaints of abdominal pain. He was admitted to the surgical service with NG tube. Patient was NPO x 24 hours. He started having BMs the evening of 08/04. NG tube was d/c on 08/05. Started post-op diet the evening of 08/05, which the patient tolerated well. No nausea or vomiting after starting taking PO. D/C home and recommended follow up with his PCP as needed. Home Meds and New Rx's Prescriptions: Continued Pradaxa 75 mg capsule 150 mg PO BID RF: 0 sulfamethoxazole-trimethoprim [Bactrim] 400-80 mg tablet 1 tab PO DAILY Qty: 90 RF: 0 pramipexole 1 MG tablet 2 mg PO HS RF: 0 furosemide 40 MG tablet 1 tab PO DAILY RF: 0 tamsulosin 0.4 mg Capsule 0.4 mg PO DAILY RF: 0 Discharge Instructions Instructions: Bowel Obstruction (DC), Bowel Obstruction (GEN) Additional Instructions: Recommend follow up with your PCP as needed. Activity:: Activity as Tolerated Equipment/Supplies:: No Equipment Needed Diet:: Normal Diet Discharge Orders Discharge Orders: Discharge Order (Routine); Ordered 08/06/18 Ordered By: Marley German DS: Summary Time Spent with Patient Less than 30 minutes Exam Const General: cooperative, healthy appearing and comfortable Orientation: alert and oriented x3 Resp Effort & Inspection: normal respiratory effort, no audible wheezes and no cough GI Inspection: normal to inspection and obesity Palpation: soft, no guarding and nontender Auscultation: normal bowel sounds DS: Data Vitals/I&O Vitals and I&O: Vital Signs Temperature 37.0 C 08/06/18 00:37 Temperature Source Skin 08/06/18 00:37 Pulse 77 08/06/18 00:37 Pulse Rhythm Regular 08/06/18 00:37 Respiratory Rate 16 08/06/18 00:37 Respiratory Effort 08/06/18 00:37 Respiratory Depth Normal 08/06/18 00:37 Respiratory Pattern Normal 08/06/18 00:37 Blood Pressure 115/86 08/06/18 00:37 Blood Pressure Position Sitting 08/04/18 17:14 Pulse Oximetry 96 08/06/18 00:37 Oxygen Delivery Method Room Air 08/06/18 00:37 Oxygen Flow Rate 0 08/06/18 00:37 Pain Level 0 08/06/18 00:37 Intake & Output 08/05/18 08/06/18 08/06/18 18:59 06:59 18:59 Intake Total 2127.083 / 3420.000 1292.917 / 3420.000 Output Total 3000 / 3000 Balance -872.917 / 401.212 6364.917 / 420.000 Intake: IV 1577.083 / 2100.000 522.917 / 2100.000 Oral 550 / 1320 770 / 1320 Output: Gastric Drainage 100 / 100 Left Nare 100 / 100 Urine 2900 / 2900 Other: Urine Color Yellow Urine Appearance Clear Comment pt self cath'd in br at this time and flushed. 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 Daughter No problems noted. Social History Smoking/Tobacco Use Status: Current every day Quit status: not considering quitting Alcohol Intake: former Drug use: Daily Substance use type: marijuana Counseling given: Yes Counseling provided: provider counseling Caregiver/Support person: Yes Household members: spouse Housing: house Number of Children: 2 number of grandchildren: 3 Communication Needs: Corrective Lenses Education Level: high school Do you need help understanding health information?: Often current occupation: retired What is your relationship status?: How often do you talk on the phone with friends or family?: twice per week How often do you get together with friends or relatives?: twice per week Panel score (0-1 are the most socially isolated patients): 2 What type of physical activity do you participate in: walking, bicycling and occasional exercise Special jada needs: No Agree to transfusion: Yes Seatbelt use: always Drive intox or ride w/intox transporter driver: No Working smoke detector in home: Yes Fire extinguisher in home: Yes Do you feel safe at home: Yes Do you feel safe in your relationship?: Yes Additional Social history: he and his live very separate lives each has own floor in the home; Cosmo lives in basement not close; have been in counseling previously
[2018-08-06] MEDS: FAMOTIDINE 20 MG/50 ML BAG 200 MG IVPB (08:03)
[2018-08-06] MEDS: Furosemide 40 MG TAB PO (08:04)
[2018-08-06] MEDS: Tamsulosin 0.4 MG CAPCR PO (08:04)
[2018-08-06 09:11] VITALS: BP 112/76; PULSE 86; RESP 16; TEMP 36.3; O2SAT 98
--- NOTE | 2018-08-06 10:18 | PDOC.CMDIS ---
LACE Index Scoring Tool - Questions: Length of Stay (in days): 3 Acuity (Admit via E.D.?): Yes E.D. Visits: 4 - Answers: Total Score: 10 Risk of Readmission: High Risk Care Management Discharge Reason for Hospitalization: SBO Discharge Plan: He is being discharged home with his family transporting. No services needed at this time. He will follow-up with his PCP as directed. Patient/Family Education Needs: RN to review d/c instructions re meds and activity levels. Patient able to verbalize reason for hospitalization.
== END 2018-08-06 09:43 | disposition home or self-care (01) | DRG 389 ==
LOC: ER 23:22 → MS 08-05 09:40
PROVIDERS: Admitting Provider Surgery; Emergency Provider Student in an Organized Health Care Education/Training Program; PCP Internal Medicine; Visit Provider Surgery
DX: K56.609 Unspecified intestinal obstruction, unspecified as to partial versus complete obstruction (principal); N39.0 Urinary tract infection, site not specified; Z68.41 Body mass index [BMI] 40.0-44.9, adult; N32.0 Bladder-neck obstruction; K43.9 Ventral hernia without obstruction or gangrene; G47.33 Obstructive sleep apnea (adult) (pediatric); E66.01 Morbid (severe) obesity due to excess calories; Z87.440 Personal history of urinary (tract) infections; Z98.890 Other specified postprocedural states
CPT/HCPCS: 31500; 36415; 71045; 80048; 80053; 83690; 87081; 96361; 96374; 99222; 99232; 99238; 99285; J1650; 74019; 74177; 81003; 81015; 83735; 85025; 85049; 87086; 99284; J0878; J1940; J1956; J2405; J3490

== ENCOUNTER 2018-10-25 11:02 | Emergency (ER) | payer SELFPAY ==
[2018-10-25 11:05] VITALS: BP 136/81; PULSE 89; RESP 18; TEMP 37; O2SAT 96
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
[2018-10-25 13:07] LABS: Lactate 0.8 mmol/L (0.6-1.4)
[2018-10-25 13:15] LABS: ALT 37 U/L (16-63); AST 27 U/L (15-37); Albumin 4.1 g/dL (3.4-5.0); Alkaline Phosphatase 66 U/L (46-116); Anion Gap 13.2 mmol/L (3-11); BUN 38 mg/dL (7-18); Bilirubin, Total 0.9 mg/dL (0.2-1.0); CO2 20.8 mmol/L (21.0-32.0); CREATININE 1.22 mg/dL (0.70-1.30); Calcium 9.1 mg/dL (8.5-10.1); Chloride 106 mmol/L (98-107); Glucose 110 mg/dL (70-100); Potassium 4.5 mmol/L (3.5-5.1); Sodium 140 mmol/L (136-145); Total Protein 8.3 g/dL (6.4-8.2)
[2018-10-25 13:20] LABS: Abs Immature Grans 0.01 k/cumm (0.0-0.09); Absolute Basophil Count 0.02 k/cumm (0.0-0.2); Absolute Eosinophil Count 0.22 k/cumm (0.0-0.7); Absolute Lymphocyte Count 1.44 k/cumm (1.2-3.4); Absolute Monocyte Count 0.82 k/cumm (0.11-0.7); Absolute Neutrophil Count 7.74 k/cumm (1.2-6.7); Basophils % 0.2; Eosinophils % 2.1; HCT 49.5 % (40.0-50.0); HGB 16.8 g/dL (13.5-17.5); Immature Grans % 0.1; Mean Corp. HGB Concentration 33.9 g/dL (32.0-36.0); Mean Corpuscular Hemoglobin 30.5 pg (27.0-33.0); Mean Platelet Volume 9.5 fL (8.0-11.0); Neutrophils % 75.6; Platelet Count 238 x1000/uL (130-400); RBC Distribution Width 15.2 % (11.8-14.1); White Blood Cell Count 10.25 k/cumm (4.4-10.8)
[2018-10-25 13:45] VITALS: BP 136/81; PULSE 89; RESP 18; TEMP 37; O2SAT 96
== END 2018-10-25 13:46 | disposition home or self-care (01) ==
PROVIDERS: Emergency Provider Physician Assistant; PCP Internal Medicine
DX: E86.0 Dehydration (principal); S70.12XA Contusion of left thigh, initial encounter; V47.5XXA Car driver injured in collision with fixed or stationary object in traffic accident, initial encounter; F32.9 Major depressive disorder, single episode, unspecified; Z91.19 Patient's noncompliance with other medical treatment and regimen
CPT/HCPCS: 36415; 80053; 99283; 83605; 85025

== ENCOUNTER 2018-11-20 15:50 | Outpatient (CLI) | payer MEDICARE, SELFPAY | END 2018-11-20 16:10 | PROVIDERS: PCP Internal Medicine; Visit Provider Urology | DX: N39.0 Urinary tract infection, site not specified (principal) | CPT/HCPCS: 87086 ==

== ENCOUNTER 2019-01-12 12:35 | Outpatient (CLI) | payer MEDICARE, SELFPAY | END 2019-01-12 12:55 | PROVIDERS: PCP Internal Medicine; Visit Provider Urology | DX: N39.0 Urinary tract infection, site not specified (principal) | CPT/HCPCS: 87077; 87086; 87186 ==

== ENCOUNTER → 2019-01-19 10:55 | Outpatient (BNVA) | payer MEDICARE, SELFPAY | PROVIDERS: PCP Internal Medicine; Referring Provider Internal Medicine; Visit Provider Nurse Practitioner Gerontology | DX: N39.0 Urinary tract infection, site not specified (principal) | CPT/HCPCS: 99213 ==

== ENCOUNTER 2019-01-19 11:08 | Outpatient (REF) | payer MEDICARE, SELFPAY | END 2019-01-19 11:28 | LOC: LBN 11:08 | PROVIDERS: PCP Internal Medicine; Visit Provider Urology | DX: N39.0 Urinary tract infection, site not specified (principal) | CPT/HCPCS: 87077; 87086; 87186 ==

== ENCOUNTER 2019-01-20 09:35 | Outpatient (RCR) | payer MEDICARE, SELFPAY ==
[2019-01-20] MEDS: Normal Saline Flush 10 ML SYR IVP (12:16)
== END 2019-02-17 23:59 | disposition home or self-care (01) ==
LOC: INF 09:35
PROVIDERS: PCP Internal Medicine; Visit Provider Urology
DX: T84.51XD Infection and inflammatory reaction due to internal right hip prosthesis, subsequent encounter (principal); A49.9 Bacterial infection, unspecified; Z79.2 Long term (current) use of antibiotics; Z98.890 Other specified postprocedural states
CPT/HCPCS: 96365; J0878

== ENCOUNTER 2019-02-03 11:46 | Outpatient (REF) | payer MEDICARE, SELFPAY | END 2019-02-03 12:06 | LOC: LBN 11:46 | PROVIDERS: PCP Internal Medicine; Visit Provider Urology | DX: N39.0 Urinary tract infection, site not specified (principal) | CPT/HCPCS: 87077; 87086; 87186 ==

== ENCOUNTER 2019-02-23 12:32 | Outpatient (CLI) | payer MEDICARE, SELFPAY ==
[2019-02-23 15:54] LABS: Bilirubin Negative (Negative); Blood Moderate (Negative); Clarity Sl Cloudy (Clear); Glucose Negative (Negative); Ketones Negative (Negative); Leukocyte Esterase Moderate (Negative); Nitrite Negative (Negative); Urobilinogen 0.2 EU/dL (Up TO 0.2); pH 5.5 (5-8)
[2019-02-23 16:00] LABS: C & S Indicated? C&S Done As Ordered; WBC >50 HPF (0-5)
== END 2019-02-23 12:52 ==
PROVIDERS: PCP Internal Medicine; Visit Provider Urology
DX: N39.0 Urinary tract infection, site not specified (principal)
CPT/HCPCS: 87077; 81003; 81015; 87086; 87186

== ENCOUNTER 2019-03-13 12:50 | Outpatient (CLI) | payer OTHER, MEDICARE, SELFPAY | END 2019-03-13 13:10 | PROVIDERS: PCP Internal Medicine; Visit Provider Urology | DX: N39.0 Urinary tract infection, site not specified (principal) | CPT/HCPCS: 87077; 87086; 87186 ==

== ENCOUNTER 2019-03-19 11:30 | Outpatient (RCR) | payer MEDICARE, SELFPAY ==
[2019-03-18] MEDS: Normal Saline Flush 10 ML SYR 20 ML IVP (12:17)
[2019-03-18] MEDS: GENTAMICIN 160 MG in Normal Saline 100 ML 208 MG IVPB (12:17)
[2019-03-19] MEDS: Normal Saline Flush 10 ML SYR 20 ML IVP (11:25)
[2019-03-19] MEDS: GENTAMICIN 160 MG in Normal Saline 100 ML 208 MG IVPB (11:25)
== END 2019-03-20 23:59 | disposition home or self-care (01) ==
LOC: INF 11:30
PROVIDERS: PCP Internal Medicine; Visit Provider Urology
DX: N39.0 Urinary tract infection, site not specified (principal)
CPT/HCPCS: 96365; J1580

== ENCOUNTER 2019-03-24 16:55 | Observation (INO) | payer OTHER, SELFPAY ==
[2019-03-24] VITALS (21 sets, daily range): BP systolic 110–142; BP diastolic 67–89; PULSE 51–91; RESP 12–27; TEMP 36.5–37; O2SAT 95–99
--- NOTE | 2019-03-24 17:47 | ED.GENADUL_ITS ---
Discharge Plan Disposition Patient Disposition: [facility] INPATIENT Condition: Stable Discharge Details Chief Complaint: Dizzy/Sync Clinical Impression: Vertigo, Vision changes Primary Care Provider: Remberto Aguilar ED Provider: Michael Bridges Home Meds and New Rx's Prescriptions: No Action sulfamethoxazole-trimethoprim 400-80 mg tablet 1 tab PO DAILY Qty: 90 RF: 2 sulfamethoxazole-trimethoprim 800-160 mg tablet 1 tab PO BID Qty: 20 RF: 0 tamsulosin 0.4 mg capsule 0.4 mg PO DAILY Qty: 90 RF: 4 pramipexole 1 MG tablet 2 mg PO HS RF: 0 furosemide 40 MG tablet 1 tab PO DAILY RF: 0 Pradaxa 150 mg capsule 150 mg PO BID Qty: 30 RF: 0 finasteride 5 mg Tablet 5 mg PO DAILY RF: 0 Medical Decision Making 17:50 --68-year-old male with multiple medical problems inclduing TBI, prior CVA seen on imaging, here with dizziness today. Dizziness seems vertiginous, positional but did have associated episode of blurred vision. Patient concerned may be related to obstructed external ear canals with cerumen impaction. He certainly has cerumen impaction bilaterally today. Patient requesting cerumen disimpaction. Consider central neurologic process. Neurologic exam reassuring at this time. Will assess after cerumen disimpaction. Screening ECG was reviewed and interpreted by me: Atrial fibrillation 61 bpm, right bundle branch block, no STEMI. Patient has been taking pradaxa. -- Labs reviewed and nondiagnostic. 20:45 --CT of the head was interpreted by radiology: No acute intracranial pathology. CTA of the brain and neck interpreted by radiology: No evidence for acute transcortical infarct, acute intracranial hemorrhage, or mass-effect. No significant stenosis or aneurysm. No evidence of acute dissection. Patient reassessed and notes that he does feel better. I explained potential for TIA versus peripheral process. Peripheral process is favored although patient did have visual changes earlier today. MRI is not available this evning. Plan for hospitalization for TIA. I spoke with Dr. Hernandez who will admit the patient. Care transition Dr. Hernandez. Family does note that patient has insurance allows for local admission as opposed to the need for consultation[facility]. HPI General Mode of arrival: EMS . Date/Time Provider Initiated Documentation: 03/24/19 17:08 . Limitations to Documentation: no limitations . Information obtained by: patient . HPI Narrative: 68-year-old male with multiple medical problems including prior history of TBI, prior CVA seen on imaging, recent UTI now on antibiotic, here with chief complaint of dizziness. Patient notes dizziness that occurs with movement. Symptoms started this morning. Symptoms have persisted. Symptoms much improved when he stands still. He also notes some associated visual disturbances this afternoon. He denies chest pain. No headache. No numbness or weakness. Related Data Home Medications Medication Instructions Recorded Confirmed pramipexole 2 mg PO HS 08/04/12 03/24/19 furosemide 1 tab PO DAILY 09/16/15 03/24/19 tamsulosin 0.4 mg capsule 0.4 mg PO DAILY #90 cap 08/18/18 03/24/19 dabigatran etexilate [Pradaxa] 150 mg PO BID #30 cap 10/25/18 03/24/19 sulfamethoxazole 400 1 tab PO DAILY #90 tab 03/19/19 03/24/19 mg-trimethoprim 80 mg tablet sulfamethoxazole 800 1 tab PO BID #20 tab 03/19/19 03/24/19 mg-trimethoprim 160 mg tablet finasteride 5 mg PO DAILY 03/24/19 03/24/19 Previous Rx's Medication Instructions Recorded tamsulosin 0.4 mg capsule 0.4 mg PO DAILY #90 cap 08/18/18 dabigatran etexilate [Pradaxa] 150 mg PO BID #30 cap 10/25/18 sulfamethoxazole 400 1 tab PO DAILY #90 tab 03/19/19 mg-trimethoprim 80 mg tablet sulfamethoxazole 800 1 tab PO BID #20 tab 03/19/19 mg-trimethoprim 160 mg tablet Allergies Allergy/AdvReac Type Severity Reaction Status Date / Time cephalexin monohydrate Allergy Intermediate Skin Rash Unverified 03/24/19 17:07 [From Keflex] hydrocodone AdvReac Severe Psychosis Unverified 03/24/19 17:07 oxycodone [Oxycodone] AdvReac Intermediate Psychosis Unverified 03/24/19 17:07 General Stated Complaint: Dizzy/Sync ROSCOE: 2 Review of Systems All systems reviewed & are unremarkable except as noted in HPI and below Constitutional Constitutional: Denies fever(s) Cardiovascular Cardiovascular: Denies chest pain [facility] Medical History Cellulitis and abscess of lower leg (Acute 01/21/13) Chronic atrial fibrillation (Chronic) 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 Kristyn Ornelas for same. Marijuana use, continuous (Chronic) Marital conflict (Chronic) Memory deficits (Chronic) Mental status change (Acute 01/21/13) Morbid obesity with BMI of 45.0-49.9, adult (Chronic) Obstructive sleep apnea (Chronic) Palliative care patient (Chronic) Recurrent cellulitis of lower leg (Chronic) Recurrent UTI (urinary tract infection) (Chronic) Restless leg syndrome (Chronic) Sepsis associated hypotension (Acute 01/21/13) TBI (traumatic brain injury) (Chronic) Surgical History History of laparotomy (Chronic) Family History Son No problems noted. Daughter No problems noted. Social History Smoking/Tobacco Use Status: Current every day Tobacco Type: smokeless tobacco Smokeless tobacco user: chewing tobacco Quit status: not considering quitting Alcohol Intake: former Drug use: Daily Substance use type: marijuana Counseling given: Yes Counseling provided: provider counseling Caregiver/Support person: Yes Household members: spouse Housing: house Number of Children: 2 number of grandchildren: 3 Communication Needs: Corrective Lenses Education Level: high school Do you need help understanding health information?: Often current occupation: retired What is your relationship status?: How often do you talk on the phone with friends or family?: twice per week How often do you get together with friends or relatives?: twice per week Panel score (0-1 are the most socially isolated patients): 2 What type of physical activity do you participate in: walking, bicycling and occasional exercise Special jada needs: No Agree to transfusion: Yes Seatbelt use: always Drive intox or ride w/intox special events driver: No Working smoke detector in home: Yes Fire extinguisher in home: Yes Do you feel safe at home: Yes Do you feel safe in your relationship?: Yes Additional Social history: he and his live very separate lives each has own floor in the home; Cosmo lives in basement not close; have been in counseling previously Exam Const General: cooperative and no acute distress HENMT Head: normocephalic and atraumatic Ears: EAC abnormal cerumen impaction bilaterally and unable to visualize TM Mouth: moist mucous membranes Eyes Conjunctivae: normal conjunctivae Sclera: normal sclerae EOM: EOM intact bilaterally Neck Neck: trachea midline and supple Resp Auscultation: clear to auscultation bilaterally, no rales, no rhonchi and no wheezes Cardio Jugular venous pressure: no JVD Rate: regular rate and not tachycardic Rhythm: regular rhythm GI Palpation: soft, not firm, no guarding, no masses, not rigid and nontender Skin General skin exam: no rashes or lesions noted Neuro General: alert, awake, oriented x3 and tone normal Cranial Nerves: CN's II-XI intact bilaterally Cognition: normal cognition Speech: speech normal Motor: muscle tone normal throughout and strength 5/5 throughout Sensory Exam: no sensory deficits noted Coordination: [id number] test normal, [id number] test normal, Romberg test normal and rapid alternating movement UE normal (normal) Extrem General: no edema Psych Appearance: grossly normal Mental Status: mental status grossly normal Speech and Movement: speech and movement normal Course Vital Signs Vital signs: Vital Signs Temperature 36.7 C 03/24/19 16:58 Pulse 63 03/24/19 16:58 Respiratory Rate 12 03/24/19 16:58 Blood Pressure 122/68 03/24/19 16:58 Pulse Oximetry 95 03/24/19 16:58 Temperature 36.7 C 03/24/19 16:58 Temperature Source Temporal Artery Scan 03/24/19 16:58 Pulse 63 03/24/19 16:58 Respiratory Rate 20 03/24/19 17:03 Respiratory Effort Non-Labored 03/24/19 17:03 Respiratory Depth Normal 03/24/19 17:03 Respiratory Pattern Normal 03/24/19 17:03 Blood Pressure 122/68 03/24/19 16:58 Blood Pressure Position Supine 03/24/19 16:58 Pulse Oximetry 95 03/24/19 16:58 Oxygen Delivery Method Room Air 03/24/19 16:58 Oxygen Flow Rate 0 03/24/19 16:58 Pain Level 0 03/24/19 16:58
[2019-03-24 17:54] LABS: Abs Immature Grans 0.01 k/cumm (0.0-0.09); Absolute Basophil Count 0.01 k/cumm (0.0-0.2); Absolute Eosinophil Count 0.17 k/cumm (0.0-0.7); Absolute Lymphocyte Count 1.49 k/cumm (1.2-3.4); Absolute Monocyte Count 0.54 k/cumm (0.11-0.7); Absolute Neutrophil Count 4.78 k/cumm (1.2-6.7); Basophils % 0.1; Eosinophils % 2.4; HCT 47.3 % (40.0-50.0); HGB 15.7 g/dL (13.5-17.5); Immature Grans % 0.1 %; Lymphocytes % 21.3; Mean Corp. HGB Concentration 33.2 g/dL (32.0-36.0); Mean Corpuscular Hemoglobin 30.1 pg (27.0-33.0); Mean Corpuscular Volume 90.8 fL (80-95); Monocytes % 7.7; Neutrophils % 68.4; Platelet Count 250 x1000/uL (130-400); RBC 5.21 m/cumm (4.50-6.00); RBC Distribution Width 14.7 % (11.8-14.1)
[2019-03-24] MEDS: Meclizine 25 MG TAB PO (17:54)
[2019-03-24 18:09] LABS: ALT 26 U/L (16-63); AST 19 U/L (15-37); Alkaline Phosphatase 78 U/L (46-116); Anion Gap 8.4 mmol/L (3-11); BUN 25 mg/dL (7-18); Bilirubin, Total 0.5 mg/dL (0.2-1.0); CO2 27.6 mmol/L (21.0-32.0); CREATININE 1.03 mg/dL (0.70-1.30); Calcium 9.2 mg/dL (8.5-10.1); Chloride 102 mmol/L (98-107); Glucose 95 mg/dL (74-106); Potassium 4.2 mmol/L (3.5-5.1); Sodium 138 mmol/L (136-145); Total Protein 7.9 g/dL (6.4-8.2)
[2019-03-24 18:12] LABS: Troponin I < 0.05 ng/Ml (<0.06)
--- NOTE | 2019-03-24 19:23 | DI.CT_ITS ---
EXAM: CT BRAIN NECK CTA CLINICAL HISTORY: vertigo TECHNIQUE: Axial CT angiography was performed with multi-slice acquisition and multi-planar and/or 3 D reconstructions. COMPARISON: CT ABDOMEN PELVIS W from 08/04/2018 FINDINGS: CT brain: The ventricles and sulci are consistent with the patient's age. There is an old lacunar infarct or V irchow Len space on the left. No acute territorial infarct is present. No intracranial hemorrhage is seen. No acute midline shift or mass effect is present. The ventricles are intact. The basilar cisterns are patent. The calvarium is intact. The visualized paranasal sinuses are clear. CT angiography of the brain: Internal carotid arteries: Unremarkable. No evidence of aneurysm, occlusion or significant stenosis. Anterior cerebral arteries: Unremarkable. No evidence of aneurysm, occlusion or significant stenosis . Middle cerebral arteries: Unremarkable. No evidence of aneurysm, occlusion or significant stenosis. Posterior cerebral arteries: There is persistent origin of the left posterior cerebral artery. They are otherwise unremarkable. No evidence of aneurysm, occlusion or significant stenosis. Basilar artery: Unremarkable. No evidence of aneurysm, occlusion or significant stenosis. CT angiography of the neck: Common carotid arteries: Unremarkable. No evidence of dissection, occlusion or significant stenosis. Internal carotid arteries: Atherosclerosis at the origin of the right internal carotid artery. Other putnam unremarkable. No evidence of dissection, occlusion or significant stenosis. External carotid arteries: Unremarkable. No evidence of occlusion or significant stenosis. Vertebral arteries: The left vertebral artery is hypoplastic. No evidence of dissection, occlusion o r significant stenosis. Soft tissues: Unremarkable. Thyroid gland: Unremarkable. Bones: No acute abnormality. 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 Focal kyphosis at this level. IMPRESSION: 1. No acute intracranial process. 2. No significant arterial stenosis or occlusion.
[2019-03-24] MEDS: Omnipaque 350 MG/ML 100 ML BTL IJ (20:19)
--- NOTE | 2019-03-24 20:22 | DI.VRAD_ITS ---
PROCEDURE INFORMATION: Exam: CT Angiography Head Without And With Contrast Exam date and time: 03/24/2019 7:20 PM Age: 68 years old Clinical indication: Patient HX: Dizzy and vertigo TECHNIQUE: Imaging protocol: Computed tomographic angiography of the head without and with intravenous contrast. 3D rendering: MIP and/or 3D reconstructed images were created by the technologist. Radiation optimization: All CT scans at this facility use at least one of these dose optimization techniques: automated exposure control; mA and/or kV adjustment per patient size (includes targeted exams where dose is matched to clinical indication); or iterative reconstruction. Contrast material: OMNIPAQUE 350; Contrast volume: 100 ml; Contrast route: IV RAC; Other technique: STROKE PROTOCOL was implemented. COMPARISON: CT HEAD WITHOUT CONTRAST 03/05/2016 10:48 AM FINDINGS: Right internal carotid artery: Intracranial segment is patent with no significant stenosis. No aneurysm. Right anterior cerebral artery: No occlusion or significant stenosis. No aneurysm. Right middle cerebral artery: No occlusion or significant stenosis. No aneurysm. Right posterior cerebral artery: No occlusion or significant stenosis. No aneurysm. Right vertebral artery: No occlusion or significant stenosis. No aneurysm. Left internal carotid artery: Intracranial segment is patent with no significant stenosis. No aneurysm. Left anterior cerebral artery: No occlusion or significant stenosis. No aneurysm. Left middle cerebral artery: No occlusion or significant stenosis. No aneurysm. Left posterior cerebral artery: Persistent origin. No occlusion or significant stenosis. No aneurysm. Left vertebral artery: Hypoplastic but patent. No occlusion or significant stenosis. No aneurysm. Basilar artery: No occlusion or significant stenosis. No aneurysm. HEAD: Brain: Age-related involutional changes and chronic microvascular ischemic disease. Chronic lacunar infarct versus prominent VR space within the inferior left basal ganglia. No evidence for acute transcortical infarct. No mass effect or midline shift. No extra-axial collection. No acute intracranial hemorrhage. Basal cisterns are patent. Ventricles: Normal. No ventriculomegaly. Bones/joints: Unremarkable. No acute fracture. Sinuses: Visualized sinuses are normal. No fluid levels. Mastoid air cells: Visualized mastoids are normal. No mastoid effusion. Soft tissues: Unremarkable. IMPRESSION: 1. No evidence for acute transcortical infarct, acute intracranial hemorrhage, or mass effect. [place] Stroke Program Early CT Score (ASPECTS) = 10 2. No significant stenosis or aneurysm. No evidence of acute dissection. PROCEDURE INFORMATION: Exam: CT Angiography Neck With Contrast Exam date and time: 03/24/2019 7:20 PM Age: 68 years old Clinical indication: Patient HX: Dizzy and vertigo TECHNIQUE: Imaging protocol: Computed tomography angiography of the neck with intravenous contrast. 3D rendering: MIP and/or 3D reconstructed images were created by the technologist. Radiation optimization: All CT scans at this facility use at least one of these dose optimization techniques: automated exposure control; mA and/or kV adjustment per patient size (includes targeted exams where dose is matched to clinical indication); or iterative reconstruction. Contrast material: OMNIPAQUE 350; Contrast volume: 100 ml; Contrast route: IV RAC; COMPARISON: CT HEAD WITHOUT CONTRAST 03/05/2016 10:48 AM FINDINGS: VASCULATURE: Right common carotid artery: Unremarkable. No stenosis. No dissection or occlusion. Right internal carotid artery: Unremarkable extracranial segment. No stenosis. No dissection or occlusion. Right external carotid artery: Unremarkable. No occlusion or stenosis of the origin. Right vertebral artery: Unremarkable. No stenosis. No dissection or occlusion. Left common carotid artery: Unremarkable. No stenosis. No dissection or occlusion. Left internal carotid artery: Unremarkable extracranial segment. No stenosis. No dissection or occlusion. Left external carotid artery: Unremarkable. No occlusion or stenosis of the origin. Left vertebral artery: Hypoplastic but patent. No stenosis. No dissection or occlusion. NECK: Bones/joints: No acute fracture. Soft tissues: Normal. No significant soft tissue swelling. IMPRESSION: No stenosis. No evidence of acute dissection. COMMENT: Reference per NASCET criteria for degree of stenosis: Mild: less than 50% stenosis. Moderate: 50-69% stenosis. Severe: 70-94% stenosis. Near occlusion: 95-99% stenosis. Dictated and Authenticated by: Mick Mayer MD. Ordering:LINDEN Rodriguez MD
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
[2019-03-25] VITALS (8 sets, daily range): BP systolic 106–119; BP diastolic 70–81; PULSE 64–87; RESP 16–21; TEMP 35.7–37.1; O2SAT 96–97
[2019-03-25] MEDS: Pramipexole 0.5 MG TAB 2 MG PO (00:21)
[2019-03-25] MEDS: Sulfameth/Trimeth DS TAB 1 TAB PO ×2 (00:21→09:54)
[2019-03-25 07:30] LABS: HGB 15.1 g/dL (13.5-17.5); Mean Corp. HGB Concentration 33.6 g/dL (32.0-36.0); Mean Corpuscular Hemoglobin 30.6 pg (27.0-33.0); Mean Corpuscular Volume 91.1 fL (80-95); Mean Platelet Volume 8.7 fL (8.0-11.0); Platelet Count 248 x1000/uL (130-400); RBC 4.94 m/cumm (4.50-6.00); RBC Distribution Width 14.7 % (11.8-14.1); White Blood Cell Count 6.79 k/cumm (4.4-10.8)
[2019-03-25 07:55] LABS: ALT 21 U/L (16-63); AST 17 U/L (15-37); Albumin 3.6 g/dL (3.4-5.0); Alkaline Phosphatase 76 U/L (46-116); Anion Gap 7.6 mmol/L (3-11); BUN 24 mg/dL (7-18); Bilirubin, Total 0.6 mg/dL (0.2-1.0); CO2 27.4 mmol/L (21.0-32.0); CREATININE 1.04 mg/dL (0.70-1.30); Calcium 9.1 mg/dL (8.5-10.1); Chloride 103 mmol/L (98-107); Glucose 100 mg/dL (74-106); Potassium 3.8 mmol/L (3.5-5.1); Sodium 138 mmol/L (136-145); Total Protein 7.3 g/dL (6.4-8.2)
[2019-03-25 08:18] LABS: TSH (W/Ref FT4) 1.61 uIU/mL (0.36-3.74)
[2019-03-25] MEDS: Finasteride 5 MG TAB PO (08:45)
[2019-03-25] MEDS: Tamsulosin 0.4 MG CAPCR PO (08:45)
[2019-03-25] MEDS: Furosemide 40 MG TAB PO (08:46)
[2019-03-25] MEDS: Normal Saline Flush 10 ML SYR IVP (08:48)
[2019-03-25 11:25] LABS: Hemoglobin A1C 5.8 % (3.8-5.6)
--- NOTE | 2019-03-25 12:10 | DI.MRI_ITS ---
EXAM: MR BRAIN WO CLINICAL HISTORY: ACUTE ONSET VERTIGO WITH ASSOCIATED VISUAL CHANGES. TECHNIQUE: Multiplanar multisequence MRI was performed. COMPARISON: No exams were available for comparison FINDINGS: The ventricles and sulci are consistent with the patient's age. The diffusion-weighted images are un remarkable. The ventricles are intact. The basilar cisterns are patent. There is no acute midline shift or mass effect. There is a normal flow void in the alatna of Garsia. The pituitary gland is u nremarkable. IMPRESSION: No evidence of an acute infarct.
--- NOTE | 2019-03-25 14:24 | PT.INIE ---
Date of service: 03/25/19 Time of Service: 13:20 PT Notes Visit Reasons: VERTIGO, TIA Physical Therapy Inpatient Initial Evaluation Date: 03/25/2019 Referring Doctor: Lindsay Valdivia MD PT Orders: PT CONSULT: Limited ability. Unsteady gait. Precautions: Fall. Standard. Activity as tolerated. Patient Profile/Admitting Diagnosis: Patient is a 68-year-old male who presented to the ED on 03/24/2019 with chief complaints of dizziness with associated blurring of vision. CT scan of the head showed no abnormalities. CTA of brain and neck demonstrated no acute abnormality nor hemorrhage/significant stenosis/aneurysm. Patient is diagnosed with TIA, vertigo, and recurrent UTI. 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 Kristyn Ornelas for same. Marijuana use, continuous (Chronic) Marital conflict (Chronic) Memory deficits (Chronic) Mental status change (Acute 01/21/13) Morbid obesity with BMI of 45.0-49.9, adult (Chronic) Obstructive sleep apnea (Chronic) Palliative care patient (Chronic) Recurrent cellulitis of lower leg (Chronic) Recurrent UTI (urinary tract infection) (Chronic) Restless leg syndrome (Chronic) Sepsis associated hypotension (Acute 01/21/13) TBI (traumatic brain injury) (Chronic) Surgical History History of laparotomy (Chronic) Social History/Home Situation: Equipment Owned/DME: None Subjective: Patient reported continued dizziness this morning. He describes it as being not normal and (off balance). He also states that this feeling of disequilibrium has gone on and off for the past 2 weeks. He stated that his symptoms significantly decreased with the removal of impacted cerumen on bilateral ears. He did say that he has an ENT referral for extraction of remaining earwax on the left ear. Patient admits that he has been walking independently on the [facility] hallways since admission, however he was wondering if he will be able to use exercise equipment and the practice stairs in the therapy gym as today is supposed to be his physical therapy outpatient visit. Objective: General Observation: Sitting on chair. Telemetry monitoring in place Mental Status: Alert and oriented x4 Pain: 0/10 ROM: Right Upper Extremity: Shoulder Flexion WFL. Shoulder abduction WFL. Elbow flexion WFL. Wrist flexion WFL. Opening and closing of hand WFL. Left Upper Extremity: Shoulder Flexion WFL. Shoulder abduction WFL. Elbow flexion WFL. Wrist flexion WFL. Opening and closing of hand WFL. Right Lower Extremity: Hip flexion WFL. Hip abduction WFL. Knee flexion WFL. Ankle dorsiflexion WFL. Ankle plantarflexion WFL. Left Lower Extremity: Hip flexion WFL. Hip abduction WFL. Knee flexion WFL. Ankle dorsiflexion WFL. Ankle plantarflexion WFL. Strength: Right Upper Extremity: Shoulder flexors 5/5. Shoulder abductors 5/5. Elbow flexors 5/5. Elbow extensors 5/5. Insurance Licensing Supervisor strong. Left Upper Extremity: Shoulder flexors 5/5. Shoulder abductors 5/5. Elbow flexors 5/5. Elbow extensors 5/5. Insurance Licensing Supervisor strong. Right Lower Extremity: Hip flexors 5/5. Hip abductors 5/5. Knee flexors 5/5. Knee extensors 5/5. Ankle dorsiflexors 5/5. Ankle plantarflexors 5/5. Left Lower Extremity:Hip flexors 5/5. Hip abductors 5/5. Knee flexors 5/5. Knee extensors 5/5. Ankle dorsiflexors 5/5. Ankle plantarflexors 5/5. Sensation: Intact as to pain and pressure on bilateral lower extremities. Bed Mobility/Transfers: Rolling independent Supine to sit independent Sit to supine independent Sit to stand independent Stand to sit independent Bed to chair independent Chair to bed independent Gait: Patient is able to tolerate at least 300 feet of level surface ambulation without needing an assistive ambulatory device. Balance: Static Sitting: Normal Dynamic Sitting: Normal Static Standing: Normal Dynamic Standing: Good Special Tests: Mobility Limitations Standardized Measure [facility]-PAC 6 clicks Basic Mobility Inpatient Short Form: Raw Score: 24 CMS Score: 0% deficit 4-stage balance test: Patient was able to to maintain 10 seconds of feet together and semi-tandem but was unable to do so with full tandem stance as well as with 1 legged standing signifying being at risk for falls. Informed Consent/Education: Patient instructed in purpose of PT consult and plan of care. Assessment: Sharp Geovanna test is negative as well as the Alar ligament test. A mild right up beating torsional nystagmus was elicited with the left Beaumont-Hallpike with provocation of sensation of being not normal or being off balance indicating a left posterior canal BPPV. Patient is a 68-year-old male who presented to the ED on 03/24/2019 with chief complaints of dizziness with associated blurring of vision. CT scan of the head showed no abnormalities. CTA of brain and neck demonstrated no acute abnormality nor hemorrhage/significant stenosis/aneurysm. Patient is diagnosed with TIA, vertigo, and recurrent UTI. Patient presents with clinical signs and symptoms consistent with current/admitting diagnoses that have resulted to mobility limitations, gait instability, generalized weakness, and impairment of motor control as demonstrated by the following impairment level findings: 1. Impaired standing balance as evidenced by 4 stage balance test 2. Impaired activity tolerance 3. Vertigo Impairments are contributing to the following functional limitations: 1. Increase completion time for mobility ADL performance 2. Increased fall risk 3. Inability to negotiate steps alone safely Patient is assessed as a 88820 low complexity based on the following: History: 68-year-old male with past medical history, impairment level findings, functional limitations, and current diagnosis as above Examination: Demonstrable impairment in strength, balance, and range of motion with underlying impairments and functional limitations as documented above Presentation: Stable Decision Makin low complexity Goals: Goals X1 day 1. Independent stair negotiation while holding onto bilateral rails for at least 10 steps without report of pain nor dyspnea 2. Resolution of vertigo with 1-2 more sessions of Nichol maneuver Plan of Care/Treatment Plan: 1/day, 1-2 days. Plan of care has been reviewed with the MACHINE SHOP WORKER providing the service under Physical Therapy direction. Initiate Physical Therapy intervention for strengthening, bed mobility, transfers, gait, stairs, balance training, use of assistive device. DISCHARGE RECOMMENDATIONS: To home when medically cleared. May benefit continued outpatient PT for vestibular rehab. TREATMENT CODE/TIME: 35606 x 30 minutes, 52474TL modifier x15 minutes beginning at 1320 p.m. Thank you very much for this referral. Yary Warner PT, DPT, CLT [facility] [place], [place]
--- NOTE | 2019-03-25 14:43 | W.NUTCONSULT ---
Date of service: 03/25/19 Time of Service: 14:43 Nutritional Consult ASSESSMENT: 68 year old male with class 2 obesity, admitted with vertigo. PMH: TIA. Following regular meal plan with excellent intake. Not considered at nutritional risk at this time. MONITORING AND EVALUATION: po intake, weight, labs Time Spent in Nutritional Counseling and Treatment: 0 time spent face to face
[2019-03-25 16:05] LABS: Bilirubin Negative (Negative); Blood Negative (Negative); Clarity Clear (Clear); Glucose Negative (Negative); Ketones Negative (Negative); Leukocyte Esterase Negative (Negative); Nitrite Negative (Negative); Specific Gravity <= 1.005 (1.005-1.025); Urobilinogen 0.2 EU/dL (Up TO 0.2); pH 5.5 (5-8)
--- NOTE | 2019-03-25 16:25 | PT.INTREAT ---
Date of service: 03/25/19 Time of Service: 15:36 PT Notes Visit Reasons: VERTIGO, TIA Inpatient Physical Therapy Treatment Note [facility] Date: 03/25/2019 PRECAUTIONS: Standard. SUBJECTIVE: Patient reports resolution of symptoms with 2 Nichol maneuvers. He said he can bend over forward and turn his head without getting a sense of being not normal or off-balance. OBJECTIVE: Telemonitor in place. PAIN: None reported. BED MOBILITY/TRANSFERS Rolling L/R: indepednent Supine-sit: indepednent Sit-supine: indepednent Sit-stand: indepednent Stand-sit: indepednent Bed-Chair: indepednent Chair-bed: indepednent GAIT Assistive Device: No AD Weight bearing: FWB Assist: Independent Distance: 300 feet Deviation: Unremarkable VITALS: HR between 89 bpm-120 bpm through exercise activity THEREX: NuStep x 5 minutes x 2 without any complaints of chest pain STAIRS: Up and down fifteen 4-inch steps and ten 6-inch steps ASSESSMENT: R upbeating torsional nystagmus with L Jeannette-Hallpike maneuver. Nichol Maneuver was done x 2 with resolution of symptoms. PLAN: Discharge to home when medically cleared. TREATMENT CODE/TIME: 33999 (XE modifier) x 2 35 minutes beginning at 15:36 PM.
--- NOTE | 2019-03-25 16:27 | NCONE_ITS ---
Date of service: 03/25/19 Time of Service: 16:27 History of Present Illness History of Present Illness Chief Complaint: dizziness Narrative: Handedness: right. 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 Kristyn Ornelas for same. Marijuana use, continuous (Chronic) Marital conflict (Chronic) Memory deficits (Chronic) Mental status change (Acute 01/21/13) Morbid obesity with BMI of 45.0-49.9, adult (Chronic) Obstructive sleep apnea (Chronic) Palliative care patient (Chronic) Recurrent cellulitis of lower leg (Chronic) Recurrent UTI (urinary tract infection) (Chronic) Restless leg syndrome (Chronic) Sepsis associated hypotension (Acute 01/21/13) TBI (traumatic brain injury) (Chronic) Surgical History History of laparotomy (Chronic) Family History Son No problems noted. Daughter No problems noted. Social History Smoking/Tobacco Use Status: Current every day Tobacco Type: smokeless tobacco Smokeless tobacco user: chewing tobacco Quit status: not considering quitting Alcohol Intake: former Drug use: Daily Substance use type: marijuana Counseling given: Yes Counseling provided: provider counseling Caregiver/Support person: Yes Household members: spouse Housing: house Number of Children: 2 number of grandchildren: 3 Communication Needs: Corrective Lenses Education Level: high school Do you need help understanding health information?: Often current occupation: retired What is your relationship status?: How often do you talk on the phone with friends or family?: twice per week How often do you get together with friends or relatives?: twice per week Panel score (0-1 are the most socially isolated patients): 2 What type of physical activity do you participate in: walking, bicycling and occasional exercise Special jada needs: No Agree to transfusion: Yes Seatbelt use: always Drive intox or ride w/intox bus driver/monitor: No Working smoke detector in home: Yes Fire extinguisher in home: Yes Do you feel safe at home: Yes Do you feel safe in your relationship?: Yes Additional Social history: he and his live very separate lives each has own floor in the home; Cosmo lives in basement not close; have been in counseling previously Visit Medication and Allergies Active Medications Generic Name Dose Route Start Last Admin Trade Name Freq PRN Reason Stop Dose Admin Acetaminophen 0 mg 03/24/19 20:54 Tylenol PO Q4H PRN PRN Al Hydrox/Mg Hydrox/Simethicone 30 ml 03/24/19 20:54 Mylanta Liquid PO Q2H PRN PRN Dabigatran 150 mg 03/25/19 08:30 03/25/19 08:46 Pradaxa PO 150 mg BID SEDRICK Administration Dimethicone/Zinc Oxide 0 gm 03/24/19 20:54 Liyah Protect Cream TP PRN PRN Docusate Sodium 100 mg 03/24/19 20:54 Colace PO TID PRN PRN Finasteride 5 mg 03/25/19 08:30 03/25/19 08:45 Proscar PO 5 mg DAILY SEDRICK Administration Furosemide 40 mg 03/25/19 08:30 03/25/19 08:46 Lasix PO 40 mg DAILY SEDRICK Administration IV Miscellaneous Supplies 1 each 03/24/19 17:45 IV DIRECTED SEDRICK Iohexol 100 ml 03/24/19 20:30 03/24/19 20:19 Omnipaque 350 IJ 04/23/19 23:59 100 ml DIRECTED SEDRICK Administration Magnesium Hydroxide 30 ml 03/24/19 20:54 Milk Of Magnesia PO DAILY PRN PRN Polyethylene Glycol 17 gm 03/24/19 20:54 Miralax PO DAILY PRN PRN Constipation Pramipexole Dihydrochloride 2 mg 03/24/19 23:00 03/25/19 00:21 Mirapex PO 2 mg HS SEDRICK Administration Sodium Chloride 0 ml 03/24/19 17:45 Saline Flush 10 Ml Syringe IVP PRN PRN Sodium Chloride 0 ml 03/25/19 08:30 03/25/19 08:48 Saline Flush 10 Ml Syringe IVP 30 ml BID SEDRICK Administration Sodium Chloride 0 ml 03/24/19 22:55 Saline Flush 10 Ml Syringe IVP PRN PRN Tamsulosin HCl 0.4 mg 03/25/19 08:30 03/25/19 08:45 Flomax PO 0.4 mg DAILY SEDRICK Administration Trimethoprim/Sulfamethoxazole 1 tab 03/24/19 23:00 03/25/19 09:54 Bactrim Double Strength PO 1 tab BID SEDRICK Administration Allergies cephalexin monohydrate [From Keflex] Allergy (Intermediate, Unverified 03/24/19 17:07) Skin Rash hydrocodone Adverse Reaction (Severe, Unverified 03/24/19 17:07) Psychosis oxycodone [Oxycodone] Adverse Reaction (Intermediate, Unverified 03/24/19 17:07) Psychosis Results Last Vital Signs Temp 35.7 C L 03/25/19 15:56 Pulse 69 03/25/19 15:56 Resp 18 03/25/19 15:56 BP 113/72 03/25/19 15:56 Pulse Ox 96 03/25/19 15:56 Labs Result diagrams: 03/25/19 07:15 03/25/19 07:15 Labs: Laboratory Results - last 24 hr 03/24/19 03/24/19 03/25/19 17:14 17:14 07:15 WBC 7.00 RBC 5.21 Hgb 15.7 Hct 47.3 MCV 90.8 MCH 30.1 MCHC 33.2 RDW 14.7 H Plt Count 250 MPV 9.0 Immature Gran % 0.1 Neutrophils % 68.4 Lymphocytes % 21.3 Monocytes % 7.7 Eosinophils % 2.4 Basophils % 0.1 Absolute Neutrophils 4.78 Absolute Lymphocytes 1.49 Absolute Monocytes 0.54 Absolute Eosinophils 0.17 Absolute Basophils 0.01 Sodium 138 Potassium 4.2 Chloride 102 Carbon Dioxide 27.6 Anion Gap 8.4 BUN 25 H Creatinine 1.03 Estimated GFR/1.73 m2 >= 60.00 Glucose 95 Hemoglobin A1c Calcium 9.2 Magnesium 2.0 Total Bilirubin 0.5 AST 19 ALT 26 Alkaline Phosphatase 78 Troponin I < 0.05 Total Protein 7.9 Albumin 4.0 TSH 1.61 Urine Color Urine Clarity Urine pH Ur Specific [place] Urine Protein Urine Ketones Urine Blood Urine Nitrite Urine Bilirubin Urine Urobilinogen Ur Leukocyte Esterase Urine Glucose 03/25/19 03/25/19 03/25/19 07:15 07:15 07:15 WBC 6.79 RBC 4.94 Hgb 15.1 Hct 45.0 MCV 91.1 MCH 30.6 MCHC 33.6 RDW 14.7 H Plt Count 248 MPV 8.7 Immature Gran % Neutrophils % Lymphocytes % Monocytes % Eosinophils % Basophils % Absolute Neutrophils Absolute Lymphocytes Absolute Monocytes Absolute Eosinophils Absolute Basophils Sodium 138 Potassium 3.8 Chloride 103 Carbon Dioxide 27.4 Anion Gap 7.6 BUN 24 H Creatinine 1.04 Estimated GFR/1.73 m2 >= 60.00 Glucose 100 Hemoglobin A1c 5.8 H Calcium 9.1 Magnesium Total Bilirubin 0.6 AST 17 ALT 21 Alkaline Phosphatase 76 Troponin I Total Protein 7.3 Albumin 3.6 TSH Urine Color Urine Clarity Urine pH Ur Specific [place] Urine Protein Urine Ketones Urine Blood Urine Nitrite Urine Bilirubin Urine Urobilinogen Ur Leukocyte Esterase Urine Glucose 03/25/19 15:30 WBC RBC Hgb Hct MCV MCH MCHC RDW Plt Count MPV Immature Gran % Neutrophils % Lymphocytes % Monocytes % Eosinophils % Basophils % Absolute Neutrophils Absolute Lymphocytes Absolute Monocytes Absolute Eosinophils Absolute Basophils Sodium Potassium Chloride Carbon Dioxide Anion Gap BUN Creatinine Estimated GFR/1.73 m2 Glucose Hemoglobin A1c Calcium Magnesium Total Bilirubin AST ALT Alkaline Phosphatase Troponin I Total Protein Albumin TSH Urine Color Yellow Urine Clarity Clear Urine pH 5.5 Ur Specific [place] <= 1.005 Urine Protein Negative Urine Ketones Negative Urine Blood Negative Urine Nitrite Negative Urine Bilirubin Negative Urine Urobilinogen 0.2 Ur Leukocyte Esterase Negative Urine Glucose Negative
--- NOTE | 2019-03-25 16:46 | DSE_ITS ---
Date of service: 03/25/19 Time of Service: 16:47 DS: Diagnosis Discharge Diagnosis (1) BPPV (benign paroxysmal positional vertigo): Status: Acute (2) TIA (transient ischemic attack): Status: Ruled-out (3) Recurrent UTI (urinary tract infection): Status: Chronic Asessment and Plan: Latest UA negative (4) Cerumen impaction: Status: Acute Asessment and Plan: L ear Discharge Plan Disposition Patient Disposition: HOME Condition: Stable Discharge Details Chief Complaint: Dizzy/Sync Clinical Impression: Vertigo, Vision changes Reason For Visit: VERTIGO, TIA Admit Date/Time: 03/24/19 20:54 Admit Provider: Paxton Hernandez Attending Provider: Paxton Hernandez Primary Care Provider: Remberto Aguilar ED Provider: Michael Bridges Hospital Course Hospital Course: Mr Méndez is a 68 year old male with PMHx of a TBI, chronic Afib, vertigo, chronic UTI's on bactrim, who was observed on [facility] hospitalist service from 03/24/2019 until 03/25/2019 after presenting with dizziness, unsteady gait and a question of difficulty focusing. 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 He ruled out for a UTI. Per my informal consultation with neurology, the patient is safe to stay on pradaxa given these findings. He was evaluated by PT, who felt that the patient had BPPV and could benefit from outpatient PT - the patient states he is a [facility] patient and, therefore, that referral will have to be set up by the [facility]. He is medically stable for discharge home today. He should follow up with his PCP in 1-2 weeks. Home Meds and New Rx's Prescriptions: New meclizine 25 mg tablet 25 mg PO TID PRN (Reason: dizziness) Qty: 30 RF: 0 Continued sulfamethoxazole-trimethoprim 400-80 mg tablet 1 tab PO DAILY Qty: 90 RF: 2 tamsulosin 0.4 mg capsule 0.4 mg PO DAILY Qty: 90 RF: 4 pramipexole 1 MG tablet 2 mg PO HS RF: 0 furosemide 40 MG tablet 1 tab PO DAILY RF: 0 Pradaxa 150 mg capsule 150 mg PO BID Qty: 30 RF: 0 finasteride 5 mg Tablet 5 mg PO DAILY RF: 0 Discontinued sulfamethoxazole-trimethoprim 800-160 mg tablet 1 tab PO BID Qty: 20 RF: 0 Discharge Instructions Instructions: Benign Paroxysmal Positional Vertigo (DC), Dizziness (GEN) Additional Instructions: Return to the hospital with any fever, bleeding, chest pain, or shortness of breath Care Plan Goals: Home with outpatient PT. Referrals: Remberto Aguilar [Primary Care Provider] - Activity:: Activity as Tolerated Equipment/Supplies:: No Equipment Needed Diet:: Low Sodium Discharge Orders Discharge Orders: Discharge Order (Routine); Ordered 03/25/19 Ordered By: Lindsay Valdivia DS: Summary Status at Discharge Functional status at discharge: independent ambulation Overall status at discharge: patient is back to baseline Mental Status: mental status grossly normal Speech and Movement: speech and movement normal Mood: congruent mood Affect: normal affect Exam Narrative Exam Narrative: General: Pleasant middle-aged male, A&Ox3, NAD HEENT: EOMI, MMM Heart: RRR, no m/r/g Lungs: CTAB Abdomen: soft, nontender, nondistended Extremities: trace edema BLE's Psych Mental Status: mental status grossly normal Speech and Movement: speech and movement normal Mood: congruent mood Affect: normal affect DS: Data Vitals/I&O Vitals and I&O: Vital Signs Temperature 35.7 C L 03/25/19 15:56 Temperature Source Tympanic 03/25/19 15:56 Pulse 69 03/25/19 15:56 Pulse Rhythm Irregular 03/25/19 11:56 Pulse 71 03/24/19 18:20 Respiratory Rate 18 03/25/19 15:56 Respiratory Effort Non-Labored 03/25/19 11:56 Respiratory Depth Normal 03/25/19 11:56 Respiratory Pattern Normal 03/25/19 11:56 Blood Pressure 113/72 03/25/19 15:56 Blood Pressure Mean 100 03/24/19 18:16 Blood Pressure Position Supine 03/24/19 16:58 Pulse Oximetry 96 03/25/19 15:56 Oxygen Delivery Method Room Air 03/25/19 15:56 Oxygen Flow Rate 0 03/25/19 15:56 Pain Level 0 03/25/19 15:56 Intake & Output 03/24/19 03/25/19 03/25/19 23:59 11:59 23:59 Intake Total 480 / 960 480 / 960 Output Total 1600 / 1600 Balance -1120 / -640 480 / -640 Weight 110.6 kg 109.4 kg Intake: Oral 480 / 960 480 / 960 Output: Urine 1600 / 1600 Other: Urine Color Yellow Urine Appearance Clear Data Completed and Pending Completed studies during hospitalization [Text1]: CT/CTA head: 1. No acute intracranial process. 2. No significant arterial stenosis or occlusion. MRI Brain w/o contrast: No evidence of an acute infarct. Labs on day of discharge: Labs from last 24 hours 03/25/19 03/25/19 03/25/19 15:30 07:15 07:15 WBC 6.79 RBC 4.94 Hgb 15.1 Hct 45.0 MCV 91.1 MCH 30.6 MCHC 33.6 RDW 14.7 H Plt Count 248 MPV 8.7 Immature Gran % Neutrophils % Lymphocytes % Monocytes % Eosinophils % Basophils % Absolute Neutrophils Absolute Lymphocytes Absolute Monocytes Absolute Eosinophils Absolute Basophils Sodium Potassium Chloride Carbon Dioxide Anion Gap BUN Creatinine Estimated GFR/1.73 m2 Glucose Hemoglobin A1c 5.8 H Calcium Magnesium Total Bilirubin AST ALT Alkaline Phosphatase Troponin I Total Protein Albumin TSH Urine Color Yellow Urine Clarity Clear Urine pH 5.5 Ur Specific [place] <= 1.005 Urine Protein Negative Urine Ketones Negative Urine Blood Negative Urine Nitrite Negative Urine Bilirubin Negative Urine Urobilinogen 0.2 Ur Leukocyte Esterase Negative Urine Glucose Negative 03/25/19 03/25/19 03/24/19 07:15 07:15 17:14 WBC 7.00 RBC 5.21 Hgb 15.7 Hct 47.3 MCV 90.8 MCH 30.1 MCHC 33.2 RDW 14.7 H Plt Count 250 MPV 9.0 Immature Gran % 0.1 Neutrophils % 68.4 Lymphocytes % 21.3 Monocytes % 7.7 Eosinophils % 2.4 Basophils % 0.1 Absolute Neutrophils 4.78 Absolute Lymphocytes 1.49 Absolute Monocytes 0.54 Absolute Eosinophils 0.17 Absolute Basophils 0.01 Sodium 138 Potassium 3.8 Chloride 103 Carbon Dioxide 27.4 Anion Gap 7.6 BUN 24 H Creatinine 1.04 Estimated GFR/1.73 m2 >= 60.00 Glucose 100 Hemoglobin A1c Calcium 9.1 Magnesium Total Bilirubin 0.6 AST 17 ALT 21 Alkaline Phosphatase 76 Troponin I Total Protein 7.3 Albumin 3.6 TSH 1.61 Urine Color Urine Clarity Urine pH Ur Specific [place] Urine Protein Urine Ketones Urine Blood Urine Nitrite Urine Bilirubin Urine Urobilinogen Ur Leukocyte Esterase Urine Glucose 03/24/19 17:14 WBC RBC Hgb Hct MCV MCH MCHC RDW Plt Count MPV Immature Gran % Neutrophils % Lymphocytes % Monocytes % Eosinophils % Basophils % Absolute Neutrophils Absolute Lymphocytes Absolute Monocytes Absolute Eosinophils Absolute Basophils Sodium 138 Potassium 4.2 Chloride 102 Carbon Dioxide 27.6 Anion Gap 8.4 BUN 25 H Creatinine 1.03 Estimated GFR/1.73 m2 >= 60.00 Glucose 95 Hemoglobin A1c Calcium 9.2 Magnesium 2.0 Total Bilirubin 0.5 AST 19 ALT 26 Alkaline Phosphatase 78 Troponin I < 0.05 Total Protein 7.9 Albumin 4.0 TSH Urine Color Urine Clarity Urine pH Ur Specific [place] Urine Protein Urine Ketones Urine Blood Urine Nitrite Urine Bilirubin Urine Urobilinogen Ur Leukocyte Esterase Urine Glucose 03/25/19 15:30 Urine - Voided Urine Culture - Pending Preliminary micro results at discharge 03/25/19 15:30 Urine Culture - Pending Urine - Voided [facility] Medical History (Updated 03/25/19 @ 16:54 by Lindsay Valdivia MD) BPPV (benign paroxysmal positional vertigo) (Acute) Cellulitis and abscess of lower leg (Acute 01/21/13) Chronic atrial fibrillation (Chronic) 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 Kristyn Ornelas for same. Marijuana use, continuous (Chronic) Marital conflict (Chronic) Memory deficits (Chronic) Mental status change (Acute 01/21/13) Morbid obesity with BMI of 45.0-49.9, adult (Chronic) Obstructive sleep apnea (Chronic) Palliative care patient (Chronic) Recurrent cellulitis of lower leg (Chronic) Recurrent UTI (urinary tract infection) (Chronic) Restless leg syndrome (Chronic) Sepsis associated hypotension (Acute 01/21/13) TBI (traumatic brain injury) (Chronic) Surgical History History of laparotomy (Chronic) Family History Son No problems noted. Daughter No problems noted. Social History Smoking/Tobacco Use Status: Current every day Tobacco Type: smokeless tobacco Smokeless tobacco user: chewing tobacco Quit status: not considering quitting Alcohol Intake: former Drug use: Daily Substance use type: marijuana Counseling given: Yes Counseling provided: provider counseling Caregiver/Support person: Yes Household members: spouse Housing: house Number of Children: 2 number of grandchildren: 3 Communication Needs: Corrective Lenses Education Level: high school Do you need help understanding health information?: Often current occupation: retired What is your relationship status?: How often do you talk on the phone with friends or family?: twice per week How often do you get together with friends or relatives?: twice per week Panel score (0-1 are the most socially isolated patients): 2 What type of physical activity do you participate in: walking, bicycling and occasional exercise Special jada needs: No Agree to transfusion: Yes Seatbelt use: always Drive intox or ride w/intox lease purchase driver: No Working smoke detector in home: Yes Fire extinguisher in home: Yes Do you feel safe at home: Yes Do you feel safe in your relationship?: Yes Additional Social history: he and his live very separate lives each has own floor in the home; Cosmo lives in basement not close; have been in counseling previously
--- NOTE | 2019-03-25 18:34 | PDOC.CMIN ---
- If Service Date Differs Date of service: 03/25/19 Time of Service: 18:35 Care Management Initial Assess REASON FOR HOSPITALIZATION:: Vertigo/ TIA PAST MEDICAL HISTORY/PAST SURGICAL HISTORY:: Medical History . Cellulitis and abscess of lower leg (Acute 01/21/13). Chronic atrial fibrillation (Chronic). 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 Depression with anxiety (Chronic). Recently evaluated by Dr. Kristyn Ornelas for same. Marijuana use, continuous (Chronic). Marital conflict (Chronic). Memory deficits (Chronic). Mental status change (Acute 01/21/13). Morbid obesity with BMI of 45.0-49.9, adult (Chronic). Obstructive sleep apnea (Chronic). Palliative care patient (Chronic). Recurrent cellulitis of lower leg (Chronic). Recurrent UTI (urinary tract infection) (Chronic). Restless leg syndrome (Chronic). Sepsis associated hypotension (Acute 01/21/13). TBI (traumatic brain injury) (Chronic). Surgical History . History of laparotomy (Chronic) PREVIOUS FUNCTIONAL STATUS/SOCIAL/FAMILY SUPPORTS:: Cosmo lives with his Karissa in [place]. They have two adult children, a son and daughter, both of whom live locally. They have three grandchildren. They live very separate lives with each having a floor in the home. He lives in the basement. They have participated in counseling in the past. He is a who [facility] [place]. states his daughter Anel is primary caregiver. He is usually independent with ADL's and can ambulate independently. CURRENT FUNCTIONAL STATUS:: Cosmo was sitting up in his room when CM met with him. CM saw him previous to the meeting, walking the halls. He reported that he doesn't like to be in the hospital, and that he would like to know when he could go home. CM discussed the tests ordered for today, which he is agreeable to. CM and Cosmo discussed his VA benefits, and he reported that he would like to be transferred to the [facility] if necessary. CM will continue to follow. ADVANCE DIRECTIVES:: Document is on file at [facility]. His Karissa is agent and daughter Anel is alternate. Has patient been provided with information about the portal?: Yes Did the patient sign up for the portal?: No (previously offered) CODE STATUS:: Full Code INSURANCE COVERAGE / FINANCIAL ISSUES:: [facility]/ [facility] ('s Choice) CURRENT HOME/COMMUNITY SERVICES/EQUIPMENT:: Cosmo currently has outpt PT, as well as a CPAP for [facility] PRIMARY CARE PHYSICIAN:: Remberto Aguilar POTENTIAL DISCHARGE NEEDS:: Evaluations for further needs, follow up appointments PATIENT/FAMILY EDUCATION NEEDS:: Review discharge instructions regarding activity levels and medications, discussion of self care including ask me three ANTICIPATED BARRIERS TO DISCHARGE:: None identified TRANSPORTATION:: Via private vehicle by family PLAN:: Anticipate Cosmo will return home with no additional services when medically cleared. His family will transport him via private vehicle when ready. He will follow up with his PCP, as recommended. CM will continue to follow.
--- NOTE | 2019-03-25 18:43 | PDOC.CMDIS ---
- If Service Date Differs Date of service: 03/25/19 Time of Service: 18:44 LACE Index Scoring Tool - Questions: Length of Stay (in days): 2 Acuity (Admit via E.D.?): Yes E.D. Visits: 3 - Answers: Total Score: 8 Risk of Readmission: Low Risk Care Management Discharge Reason for Hospitalization: Vertigo/ TIA Discharge Plan: Cosmo will return home with a resumption of out patient PT. His family will drive him home via private vehicle. He will follow up with his PCP, as recommended. He is agreeable to the plan. Patient/Family Education Needs: Review discharge instructions regarding activity levels and medications, discussion of self care needs including ask me three Services Needed at Discharge: Outpatient Therapy (PT)
== END 2019-03-25 18:46 | disposition home or self-care (01) ==
LOC: ER 21:06 → MS 22:15
PROVIDERS: Admitting Provider Family Medicine; Emergency Provider Student in an Organized Health Care Education/Training Program; PCP Internal Medicine; Visit Provider Internal Medicine
DX: H81.10 Benign paroxysmal vertigo, unspecified ear (principal); H61.22 Impacted cerumen, left ear; Z87.440 Personal history of urinary (tract) infections; Z79.2 Long term (current) use of antibiotics; I48.20 Chronic atrial fibrillation, unspecified; R26.81 Unsteadiness on feet; Z79.01 Long term (current) use of anticoagulants; G47.33 Obstructive sleep apnea (adult) (pediatric); G25.81 Restless legs syndrome; F06.8 Other specified mental disorders due to known physiological condition; S06.9X0S Unspecified intracranial injury without loss of consciousness, sequela; X58.XXXS Exposure to other specified factors, sequela
CPT/HCPCS: 36415; 69209; 70496; 70498; 80053; 85027; 93005; 97162; 97530; 99217; 99220; 99285; 70551; 81003; 83036; 83735; 84443; 84484; 85025; 87086; 93010; G0378; J3490

== ENCOUNTER 2019-03-30 16:12 | Outpatient (CLI) | payer MEDICARE, SELFPAY | END 2019-03-30 16:32 | PROVIDERS: PCP Internal Medicine; Visit Provider Urology | DX: N39.0 Urinary tract infection, site not specified (principal) | CPT/HCPCS: 87086 ==

== ENCOUNTER 2019-07-30 16:00 | Outpatient (REF) | payer OTHER, SELFPAY | END 2019-07-30 16:20 | LOC: LBN 16:00 | PROVIDERS: PCP Internal Medicine; Visit Provider Urology | DX: N39.0 Urinary tract infection, site not specified (principal) | CPT/HCPCS: 87086 ==

== ENCOUNTER 2019-07-31 11:38 | Outpatient (CLI) | payer OTHER, SELFPAY ==
[2019-08-01 01:08] LABS: COVID-19 RT-PCR UVMMC Result Negative (Negative)
== END 2019-07-31 11:58 ==
PROVIDERS: PCP Internal Medicine; Visit Provider Urology
DX: Z03.818 Encounter for observation for suspected exposure to other biological agents ruled out (principal)
CPT/HCPCS: U0003

== ENCOUNTER 2019-08-03 14:52 | Emergency (ER) | payer OTHER, SELFPAY ==
[2019-08-03 15:01] VITALS: BP 135/75; PULSE 81; TEMP 36.8; O2SAT 135
[2019-08-03 15:42] LABS: Abs Immature Grans 0.01 k/cumm (0.0-0.09); Absolute Basophil Count 0.01 k/cumm (0.0-0.2); Absolute Eosinophil Count 0.18 k/cumm (0.0-0.7); Absolute Lymphocyte Count 1.29 k/cumm (1.2-3.4); Absolute Monocyte Count 0.39 k/cumm (0.11-0.7); Absolute Neutrophil Count 3.83 k/cumm (1.2-6.7); Basophils % 0.2; Eosinophils % 3.2; HCT 40.9 % (40.0-50.0); HGB 13.7 g/dL (13.5-17.5); Immature Grans % 0.2 %; Lymphocytes % 22.6; Mean Corp. HGB Concentration 33.5 g/dL (32.0-36.0); Mean Corpuscular Hemoglobin 31.2 pg (27.0-33.0); Mean Corpuscular Volume 93.2 fL (80-95); Mean Platelet Volume 8.9 fL (8.0-11.0); Monocytes % 6.8; Platelet Count 209 x1000/uL (130-400); RBC 4.39 m/cumm (4.50-6.00); RBC Distribution Width 15.8 % (11.8-14.1); White Blood Cell Count 5.71 k/cumm (4.4-10.8)
--- NOTE | 2019-08-03 15:57 | ED.GENADUL_ITS ---
Discharge Plan Disposition Patient Disposition: HOME Condition: Stable Discharge Details Chief Complaint: GenMedical Clinical Impression: Acute UTI, Balance problems, Weakness Primary Care Provider: Remberto Aguilar ED Provider: Dora Bridges Home Meds and New Rx's Prescriptions: New sulfamethoxazole-trimethoprim [Bactrim DS] 800-160 mg tablet 1 tab PO BID Qty: 27 RF: 0 Discontinued sulfamethoxazole-trimethoprim [Bactrim] 400-80 mg tablet 1 tab PO DAILY Qty: 14 RF: 0 No Action tamsulosin 0.4 mg capsule 0.4 mg PO DAILY Qty: 90 RF: 4 ibuprofen 200 mg tablet 200 mg PO TID PRNRF: 0 pramipexole 1 MG tablet 2 mg PO HS RF: 0 furosemide 40 MG tablet 1 tab PO DAILY RF: 0 Pradaxa 150 mg capsule 150 mg PO BID Qty: 30 RF: 0 finasteride 5 mg Tablet 5 mg PO DAILY RF: 0 meclizine 25 mg Tablet 25 mg PO TID PRNRF: 0 escitalopram oxalate 5 mg Tablet 5 mg PO DAILY RF: 0 Discharge Instructions Instructions: Urinary Tract Infection in Men (ED), Weakness (ED) Additional Instructions: Please return immediately to the emergency department if you develop any new or worsening symptoms, if your condition does not improve as expected, or if you become otherwise concerned. It is extremely important that you call soon as possible to make an appointment to be seen in follow-up for this visit by your primary care doctor. It is also very important that you follow-up with Dr. Hill as we discussed. Please begin taking the prescribed Bactrim and stop taking the Bactrim you were formally on until you have discussed this with Dr. Hill. Referrals: Tito Hill MD [ [facility] ST[facility]FF PHYSICIAN] - Remberto Aguilar [Primary Care Provider] - Discharge Data Discharge Date/Time-TO BE ENTERED AT DEPARTURE: 08/03/19 20:15 Medical Decision Making Jeff Méndez is a 69 y/o man who presented to the emergency department for difficulty with balance while walking over the past few days. On exam Pt is well and non-toxic appearing. + romberg, difficulty with tandem gait 2/2 loss of balance, otherwise non-focal neuro exam. Concern for UTI, other infection, metabolic/lyte derangement, subacute CVA, other. Doubt ACS. Exam/hx not c/w acute CVA, acute aortic etiology, sepsis, meningitis. Plan for screening labs, UA, CT head. Unable to obtain MRI at this time. UA shows UTI. I discussed Pt with Pt's daughter over the phone. She reports that she is concerned that Pt has fallen several times in the last few days 2/2 loss of balance. Pt has not hit his head or lost consciousness with the falls. Pt's daughter is concerned that Pt have tick bite or lyme disease as he has been outside quite a bit. She requests full body tick check and admission for Pt. Full body tick check performed by me, no ticks found, no rash. Will send tick panel. Pt is unsure at this time whether he wants to be admitted. Despite what is daughter has reports, Pt states that he feels he can get about the house without issue and would like to go home. Given daughter's report of Pt's difficulty walking, I recommended admission. Pt refuses admission and would like to leave. I had a lengthy discussion with the Pt re: risks of leaving the hospital without full evaluation including possible MRI, neuro eval. Pt verbalizes understanding of the risks and continues to refuse admission. I discussed Pt presentation and results with Dr. Hill of urology who follows Pt, who recommended treatment for UTI of 800mg bactrim BID. CT head neg. Prior to d/c Pt stated that he changed his mind and wanted to be admitted. I discussed Pt presentation and results with Dr. Soliman, who saw Pt at bedside. Dr. Soliman felt that Pt would be better served with outpt f/u. Pt agreed and would like to leave. I had a lengthy discussion with Patient regarding return to emergency department precautions, home care, and importance of outpatient follow-up with PCP and neurology. Pt verbalizes understanding of the plan and is amenable. Patient discharged to home with clear plan for outpatient follow-up. All questions were answered. Disposition decision was made weighing the risks and benefits of hospitalization versus outpatient treatment, the risk for further decompensation, and the patient's wishes. Medical Records Medical records reviewed: Yes I reviewed the patient's medical records. Imaging Data Radiologic Study: Attestation: I personally reviewed and interpreted this imaging study as karen irvin: Radiologist's impression: EXAM: CT HEAD WO CLINICAL HISTORY: weakness, frequent falls. TECHNIQUE: Imaging Protocol: Axial computed tomography images with coronal and sagittal reformatted images were created and reviewed COMPARISON: CT CT BRAIN NECK CTA from 03/24/2019 FINDINGS: Ventricles and Extra axial spaces: Normal in size and morphology for the patient's age. Hemorrhage: None. Cerebral parenchyma: There is a stable 10 millimeters area of CSF attenuation in the left basal ganglia which may represent a prominent Virchow Len space versus old lacunar infarct.. Midline shift: None. Brainstem/Cerebellum: Normal. Calvarium: Normal. Visualized Paranasal sinuses/Mastoids: Clear. Soft Tissues: Unremarkable. IMPRESSION: No acute intracranial process. Lab Data Lab results reviewed: Yes I reviewed the patient's lab results. Labs: 08/03/19 15:45 Blood Blood Culture - Final NO GROWTH 120 HOURS 08/03/19 15:55 Blood Blood Culture - Final NO GROWTH 120 HOURS 08/03/19 16:10 Urine - Reflex from Ua Urine Culture - Final Gram Positive Isa,Mixed Laboratory Tests Range/Units 08/03/19 08/03/19 08/03/19 15:15 15:15 15:15 WBC (4.4-10.8) k/cumm 5.71 RBC (4.50-6.00) m/cumm 4.39 L Hgb (13.5-17.5) g/dL 13.7 Hct (40.0-50.0) % 40.9 MCV (80-95) fL 93.2 MCH (27.0-33.0) pg 31.2 MCHC (32.0-36.0) g/dL 33.5 RDW (11.8-14.1) % 15.8 H Plt Count (130-400) x1000/uL 209 MPV (8.0-11.0) fL 8.9 Immature Gran % % 0.2 Neutrophils % 67.0 Lymphocytes % 22.6 Monocytes % 6.8 Eosinophils % 3.2 Basophils % 0.2 Absolute Neutrophils (1.2-6.7) k/cumm 3.83 Absolute Lymphocytes (1.2-3.4) k/cumm 1.29 Absolute Monocytes (0.11-0.7) k/cumm 0.39 Absolute Eosinophils (0.0-0.7) k/cumm 0.18 Absolute Basophils (0.0-0.2) k/cumm 0.01 Sodium (136-145) mmol/L 144 Potassium (3.5-5.1) mmol/L 3.8 Chloride (98-107) mmol/L 110 H Carbon Dioxide (21.0-32.0) mmol/L 28.0 Anion Gap (3-11) mmol/L 6.0 BUN (7-18) mg/dL 21 H Creatinine (0.70-1.30) mg/dL 0.88 Estimated GFR/1.73 m2 (mL/min/1.73m2) >= 60.00 Glucose (74-106) mg/dL 128 H Lactate (0.6-1.4) mmol/L Calcium (8.5-10.1) mg/dL 8.7 Total Bilirubin (0.2-1.0) mg/dL 0.8 AST (15-37) U/L 22 ALT (16-63) U/L 33 Alkaline Phosphatase (46-116) U/L 69 Troponin I (<0.06) ng/mL < 0.05 Total Protein (6.4-8.2) g/dL 6.8 Albumin (3.4-5.0) g/dL 3.5 Vitamin B12 (193-986) pg/mL TSH (0.36-3.74) uIU/mL 1.09 Urine Color (Yellow) Urine Clarity (Clear) Urine pH (5-8) Ur Specific [place] (1.005-1.025) Urine Protein (Negative) mg/dL Urine Ketones (Negative) mg/dL Urine Blood (Negative) Urine Nitrite (Negative) Urine Bilirubin (Negative) Urine Urobilinogen (Up TO 0.2) EU/dL Ur Leukocyte Esterase (Negative) Urine RBC (0-2) HPF Urine WBC (0-5) HPF Ur Epithelial Cells Urine Crystals (Negative) HPF Urine Bacteria (Negative) HPF Urine Mucus Ur Culture Indicated? Urine Glucose (Negative) mg/dL A.phagocytophil DNA PCR (Negative) B. divergens/MO-1 PCR (Negative) Babesia duncani (PCR) (Negative) Babesia microti DNA PCR (Negative) Borrelia (PCR) (Negative) Lyme Disease Antibody (Negative) E.chaffeensis DNA (PCR) (Negative) E.ewingii/canis DNA PCR (Negative) E. muris-like DNA (PCR) (Negative) Range/Units 08/03/19 08/03/19 08/03/19 15:45 15:55 16:10 WBC (4.4-10.8) k/cumm RBC (4.50-6.00) m/cumm Hgb (13.5-17.5) g/dL Hct (40.0-50.0) % MCV (80-95) fL MCH (27.0-33.0) pg MCHC (32.0-36.0) g/dL RDW (11.8-14.1) % Plt Count (130-400) x1000/uL MPV (8.0-11.0) fL Immature Gran % % Neutrophils % Lymphocytes % Monocytes % Eosinophils % Basophils % Absolute Neutrophils (1.2-6.7) k/cumm Absolute Lymphocytes (1.2-3.4) k/cumm Absolute Monocytes (0.11-0.7) k/cumm Absolute Eosinophils (0.0-0.7) k/cumm Absolute Basophils (0.0-0.2) k/cumm Sodium (136-145) mmol/L Potassium (3.5-5.1) mmol/L Chloride (98-107) mmol/L Carbon Dioxide (21.0-32.0) mmol/L Anion Gap (3-11) mmol/L BUN (7-18) mg/dL Creatinine (0.70-1.30) mg/dL Estimated GFR/1.73 m2 (mL/min/1.73m2) Glucose (74-106) mg/dL Lactate (0.6-1.4) mmol/L 1.2 Calcium (8.5-10.1) mg/dL Total Bilirubin (0.2-1.0) mg/dL AST (15-37) U/L ALT (16-63) U/L Alkaline Phosphatase (46-116) U/L Troponin I (<0.06) ng/mL Total Protein (6.4-8.2) g/dL Albumin (3.4-5.0) g/dL Vitamin B12 (193-986) pg/mL 312 TSH (0.36-3.74) uIU/mL Urine Color (Yellow) Yellow Urine Clarity (Clear) Cloudy Urine pH (5-8) 6.0 Ur Specific [place] (1.005-1.025) 1.025 Urine Protein (Negative) mg/dL Trace H Urine Ketones (Negative) mg/dL Negative Urine Blood (Negative) Large H Urine Nitrite (Negative) Positive H Urine Bilirubin (Negative) Negative Urine Urobilinogen (Up TO 0.2) EU/dL 0.2 Ur Leukocyte Esterase (Negative) Trace H Urine RBC (0-2) HPF >50 H Urine WBC (0-5) HPF Ur Epithelial Cells Not Applicable Urine Crystals (Negative) HPF Many amorphous Urine Bacteria (Negative) HPF Urine Mucus Not Applicable Ur Culture Indicated? Yes Urine Glucose (Negative) mg/dL Negative A.phagocytophil DNA PCR (Negative) B. divergens/MO-1 PCR (Negative) Babesia duncani (PCR) (Negative) Babesia microti DNA PCR (Negative) Borrelia (PCR) (Negative) Lyme Disease Antibody (Negative) E.chaffeensis DNA (PCR) (Negative) E.ewingii/canis DNA PCR (Negative) E. muris-like DNA (PCR) (Negative) Range/Units 08/03/19 08/03/19 17:10 18:55 WBC (4.4-10.8) k/cumm RBC (4.50-6.00) m/cumm Hgb (13.5-17.5) g/dL Hct (40.0-50.0) % MCV (80-95) fL MCH (27.0-33.0) pg MCHC (32.0-36.0) g/dL RDW (11.8-14.1) % Plt Count (130-400) x1000/uL MPV (8.0-11.0) fL Immature Gran % % Neutrophils % Lymphocytes % Monocytes % Eosinophils % Basophils % Absolute Neutrophils (1.2-6.7) k/cumm Absolute Lymphocytes (1.2-3.4) k/cumm Absolute Monocytes (0.11-0.7) k/cumm Absolute Eosinophils (0.0-0.7) k/cumm Absolute Basophils (0.0-0.2) k/cumm Sodium (136-145) mmol/L Potassium (3.5-5.1) mmol/L Chloride (98-107) mmol/L Carbon Dioxide (21.0-32.0) mmol/L Anion Gap (3-11) mmol/L BUN (7-18) mg/dL Creatinine (0.70-1.30) mg/dL Estimated GFR/1.73 m2 (mL/min/1.73m2) Glucose (74-106) mg/dL Lactate (0.6-1.4) mmol/L Calcium (8.5-10.1) mg/dL Total Bilirubin (0.2-1.0) mg/dL AST (15-37) U/L ALT (16-63) U/L Alkaline Phosphatase (46-116) U/L Troponin I (<0.06) ng/mL < 0.05 Total Protein (6.4-8.2) g/dL Albumin (3.4-5.0) g/dL Vitamin B12 (193-986) pg/mL TSH (0.36-3.74) uIU/mL Urine Color (Yellow) Urine Clarity (Clear) Urine pH (5-8) Ur Specific [place] (1.005-1.025) Urine Protein (Negative) mg/dL Urine Ketones (Negative) mg/dL Urine Blood (Negative) Urine Nitrite (Negative) Urine Bilirubin (Negative) Urine Urobilinogen (Up TO 0.2) EU/dL Ur Leukocyte Esterase (Negative) Urine RBC (0-2) HPF Urine WBC (0-5) HPF Ur Epithelial Cells Urine Crystals (Negative) HPF Urine Bacteria (Negative) HPF Urine Mucus Ur Culture Indicated? Urine Glucose (Negative) mg/dL A.phagocytophil DNA PCR (Negative) Negative B. divergens/MO-1 PCR (Negative) Negative Babesia duncani (PCR) (Negative) Negative Babesia microti DNA PCR (Negative) Negative Borrelia (PCR) (Negative) Negative Lyme Disease Antibody (Negative) Negative E.chaffeensis DNA (PCR) (Negative) Negative E.ewingii/canis DNA PCR (Negative) Negative E. muris-like DNA (PCR) (Negative) Negative ECG Data Attestation: I personally reviewed and interpreted this ECG (s) as follows: Interpretation: EKG shows atrial fibrillation at 72, left axis, right bundle branch block, nonspecific ST changes without major change from prior, no STEMI, nondiagnostic EKG HPI General Date/Time Provider Initiated Documentation: 08/03/19 15:24 . Limitations to Documentation: no limitations . Information obtained by: patient, RN notes reviewed and old records reviewed . HPI Narrative: Jeff Méndez is a 69 y/o man with a h/o recurrent UTI, afib, TIA in the past presenting to the emergency department with feeling off balance. Pt reports that over the past week and especially in the past 2 days he has felt off balance, as if he needs to hold onto a wall while walking. Pt reports that he has been able to get around his house despite his sense of loss of balance. Pt reports that he felt this way in the past several months ago when he was diagnosed with a UTI. Pt reports that symptoms resolved with abx at that time. Pt reports that he takes daily prophylactic bactrim for recurrent UTIs and his been taking his meds as prescribed. He denies vertigo, ear fullness/pain, hearing changes, numbness, focal weakness, fever, vomiting, diarrhea, dysuria, any pain. He does report a sense of generalized weakness since symptoms began several days ago. Related Data Home Medications Medication Instructions Recorded Confirmed pramipexole 2 mg PO HS 08/04/12 08/03/19 furosemide 1 tab PO DAILY 09/16/15 08/03/19 tamsulosin 0.4 mg capsule 0.4 mg PO DAILY #90 cap 08/18/18 08/03/19 Pradaxa 150 mg PO BID #30 cap 10/25/18 08/03/19 finasteride 5 mg PO DAILY 03/24/19 08/03/19 ibuprofen 200 mg tablet 200 mg PO TID PRN tab 04/15/19 08/03/19 escitalopram oxalate 5 mg PO DAILY 08/03/19 08/03/19 meclizine 25 mg PO TID PRN 08/03/19 08/03/19 sulfamethoxazole-trimethoprim 1 tab PO BID #27 tab 08/03/19 [Bactrim DS] Previous Rx's Medication Instructions Recorded tamsulosin 0.4 mg capsule 0.4 mg PO DAILY #90 cap 08/18/18 Pradaxa 150 mg PO BID #30 cap 10/25/18 sulfamethoxazole-trimethoprim 1 tab PO BID #27 tab 08/03/19 [Bactrim DS] Allergies Allergy/AdvReac Type Severity Reaction Status Date / Time cephalexin monohydrate Allergy Intermediate Skin Rash Unverified 08/03/19 16:20 [From Keflex] aspirin [From Percodan] Allergy Verified 08/03/19 16:20 hydrocodone AdvReac Severe Psychosis Unverified 08/03/19 16:20 oxycodone [Oxycodone] AdvReac Intermediate Psychosis Unverified 08/03/19 16:20 General Stated Complaint: GenMedical ROSCOE: 3 Review of Systems Narrative: Constitutional: denies fevers Eyes: denies eye pain ENT: denies ear pain, hearing changes, dental pain, sore throat Cardiovascular: denies chest pain Respiratory: denies SOB, cough GI: denies abdominal pain, vomiting, diarrhea : denies flank pain MSK: denies back pain, neck pain, arthralgias, myalgias Skin: denies rash Neuro: denies headaches, numbness, weakness, vertigo, reports loss of balance PFSH Social History Smoking/Tobacco Use Status: Current every day Tobacco Type: smokeless tobacco Smokeless tobacco user: chewing tobacco Quit status: not considering quitting Alcohol Intake: former Drug use: Daily Substance use type: marijuana Counseling given: Yes Counseling provided: provider counseling Caregiver/Support person: Yes Household members: spouse Housing: house Number of Children: 2 number of grandchildren: 3 Communication Needs: Corrective Lenses Education Level: high school Do you need help understanding health information?: Often current occupation: retired Pets and animals: No What is your relationship status?: How often do you talk on the phone with friends or family?: twice per week How often do you get together with friends or relatives?: twice per week Panel score (0-1 are the most socially isolated patients): 2 What type of physical activity do you participate in: walking, bicycling and occasional exercise Special jada needs: No Agree to transfusion: Yes Seatbelt use: always Drive intox or ride w/intox racing car driver: No Working smoke detector in home: Yes Fire extinguisher in home: Yes Do you feel safe at home: Yes Do you feel safe in your relationship?: Yes Additional Social history: he and his live very separate lives each has own floor in the home; Cosmo lives in basement not close; have been in counseling previously; daughter is DPOA Exam Narrative Exam Narrative: Constitutional: well and [id number], pleasant, conversing normally HENT: head atraumatic/normocephalic/normal inspection, mucous membranes moist Eyes: conjunctiva normal, sclera normal, pupils 3mm b/l Neck: no stridor, normal ROM, trachea midline Chest: normal inspection Resp: normal work of breathing, LCTAB Cardio: normal rate, normal rhythm, no murmur appreciated GI: abdomen soft, non-tender, non-distended Back: normal inspection, no rash Skin: warm, dry, normal color, no rash Neuro: alert, not altered, float nurse 2-12 intact, motor 5/5 b/l UEs/LEs, sensation intact throughout, no pronator drift, normal finger-nose b/l, normal heel-coughlin b/l, +romberg, somewhat staggered gait, unable to perform tandem gait 2/2 loss of balance, normal tone Ext: no edema Psych: normal mood, normal affect, normal behavior Course Vital Signs Vital signs: Vital Signs Temperature 36.8 C 08/03/19 15:01 Pulse 81 08/03/19 15:01 Blood Pressure 135/75 08/03/19 15:01 Pulse Oximetry 135 H 08/03/19 15:01 Temperature 36.8 C 08/03/19 15:01 Pulse 81 08/03/19 15:01 Respiratory Effort Non-Labored 08/03/19 15:05 Blood Pressure 135/75 08/03/19 15:01 Blood Pressure Position Sitting 08/03/19 15:01 Pulse Oximetry 135 H 08/03/19 15:01 Oxygen Delivery Method Room Air 08/03/19 15: Oxygen Flow Rate 0 08/03/19 15:01 Pain Level 0 08/03/19 15:01 Comment 08/03/19 15:01 Lab/Test Results Lab/Test Results: 08/03/19 15:29 Blood Blood Culture - Pending 08/03/19 15:29 Blood Blood Culture - Pending Laboratory Tests Range/Units 08/03/19 15:15 WBC (4.4-10.8) k/cumm 5.71 RBC (4.50-6.00) m/cumm 4.39 L Hgb (13.5-17.5) g/dL 13.7 Hct (40.0-50.0) % 40.9 MCV (80-95) fL 93.2 MCH (27.0-33.0) pg 31.2 MCHC (32.0-36.0) g/dL 33.5 RDW (11.8-14.1) % 15.8 H Plt Count (130-400) x1000/uL 209 MPV (8.0-11.0) fL 8.9 Immature Gran % % 0.2 Neutrophils % 67.0 Lymphocytes % 22.6 Monocytes % 6.8 Eosinophils % 3.2 Basophils % 0.2 Absolute Neutrophils (1.2-6.7) k/cumm 3.83 Absolute Lymphocytes (1.2-3.4) k/cumm 1.29 Absolute Monocytes (0.11-0.7) k/cumm 0.39 Absolute Eosinophils (0.0-0.7) k/cumm 0.18 Absolute Basophils (0.0-0.2) k/cumm 0.01
[2019-08-03 16:03] LABS: Lactate 1.2 mmol/L (0.6-1.4)
[2019-08-03 16:22] LABS: ALT 33 U/L (16-63); AST 22 U/L (15-37); Albumin 3.5 g/dL (3.4-5.0); Alkaline Phosphatase 69 U/L (46-116); BUN 21 mg/dL (7-18); Bilirubin, Total 0.8 mg/dL (0.2-1.0); CREATININE 0.88 mg/dL (0.70-1.30); Calcium 8.7 mg/dL (8.5-10.1); Chloride 110 mmol/L (98-107); Glucose 128 mg/dL (74-106); Potassium 3.8 mmol/L (3.5-5.1); Sodium 144 mmol/L (136-145); Total Protein 6.8 g/dL (6.4-8.2)
[2019-08-03 16:24] LABS: Troponin I < 0.05 ng/mL (<0.06)
[2019-08-03 16:26] LABS: Bilirubin Negative (Negative); Blood Large (Negative); Clarity Cloudy (Clear); Glucose Negative (Negative); Ketones Negative (Negative); Leukocyte Esterase Trace (Negative); Nitrite Positive (Negative); Specific Gravity 1.025 (1.005-1.025); Urobilinogen 0.2 EU/dL (Up TO 0.2)
[2019-08-03 16:31] LABS: TSH (W/Ref FT4) 1.09 uIU/mL (0.36-3.74)
[2019-08-03 16:41] LABS: RBC >50 HPF (0-2)
[2019-08-03 16:42] LABS: C & S Indicated? Yes; Crystals Many Amorphous HPF (Negative)
[2019-08-03] MEDS: Sulfameth/Trimeth DS TAB 1 TAB PO (18:06)
--- NOTE | 2019-08-03 18:15 | DI.CT_ITS ---
EXAM: CT HEAD WO CLINICAL HISTORY: weakness, frequent falls. TECHNIQUE: Imaging Protocol: Axial computed tomography images with coronal and sagittal reformatted images were created and reviewed COMPARISON: CT CT BRAIN NECK CTA from 03/24/2019 FINDINGS: Ventricles and Extra axial spaces: Normal in size and morphology for the patient's age. Hemorrhage: None. Cerebral parenchyma: There is a stable 10 millimeters area of CSF attenuation in the left basal gangl ia which may represent a prominent Virchow Len space versus old lacunar infarct.. Midline shift: None. Brainstem/Cerebellum: Normal. Calvarium: Normal. Visualized Paranasal sinuses/Mastoids: Clear. Soft Tissues: Unremarkable. IMPRESSION: No acute intracranial process. RADIATION DOSE DELIVERED: 934.34mGy.cm Total DLP DATA REPOSITORY: All CT scans at this facility are submitted to the National Radiology Data Registry (NRDR) Dose Index Registry (DIR) with the [employer] (ACR). RADIATION OPTIMIZATION: All CT scans at this facility use at least one of these dose optimization te chniques: automated exposure control; mA and/or kV adjustment per patient size (includes targeted exa ms where dose is matched to clinical indication); or iterative reconstruction.
[2019-08-03 18:24] VITALS: BP 137/75; PULSE 69; O2SAT 98
--- NOTE | 2019-08-03 19:01 | DI.VRAD_ITS ---
PROCEDURE INFORMATION: Exam: CT Head Without Contrast Exam date and time: 08/03/2019 6:28 PM Age: 69 years old Clinical indication: Weakness, extremity; Bilateral; Patient HX: Weakness, frequent falls TECHNIQUE: Imaging protocol: Computed tomography of the head without contrast. COMPARISON: CT BRAIN NECK CTA 03/24/2019 7:23 PM FINDINGS: Brain: Mild generalized atrophy with minimal periventricular white matter ischemic changes consistent with the patient's advanced age. No extra-axial fluid collections. There is a 10 mm rounded hypodensity in the inferior left basal ganglia distribution consistent with either a normal variant prominent perivascular space or a small chronic lacunar infarct. No evidence of acute intracranial hemorrhage. Arreola-white differentiation is well maintained. No evidence of acute or subacute intracranial ischemia/infarct. No intracranial mass lesions. No midline shift or herniation. Ventricles: Ventricles normal. Bones/joints: The calvarium and visualized facial bones are intact. Sinuses: Visualized paranasal sinuses are clear. Mastoid air cells: Visualized mastoid air cells are clear. Orbits: Visualized orbital contents demonstrate no evidence of acute abnormality. Vasculature: Moderate atherosclerotic calcific plaque is identified in the visualized proximal intracranial arterial segments. No asymmetric vascular hyperdensities suggestive of thrombosis are identified. Soft tissues: The scalp and visualized soft tissues demonstrate no acute abnormality. Other findings: The IACs are grossly normal. The sella is grossly normal. IMPRESSION: 1. No acute intracranial process. 2. 10 mm incidental normal variant prominent perivascular space versus small chronic lacunar infarct in the inferior left basal ganglia distribution. 3. Moderate calcific atherosclerosis. Dictated and Authenticated by: Manav Tran MD. Ordering:MERARY John MD
[2019-08-03 19:33] LABS: Vitamin B12 312 pg/mL (193-986)
[2019-08-03 19:46] LABS: Troponin I < 0.05 ng/mL (<0.06)
[2019-08-05 10:15] LABS: Lyme Ab w Rflx to Lyme Confirm Negative (Negative)
[2019-08-06 01:28] LABS: Anaplasma phagocytophilum Negative (Negative); B. miyamotoi PCR Negative (Negative); Babesia divergens/MO-1 Negative (Negative); Babesia duncani Negative (Negative); Babesia microti Negative (Negative); Ehrlichia chaffeensis Negative (Negative); Ehrlichia ewingii/canis Negative (Negative); Ehrlichia muris eauclairensis Negative (Negative)
== END 2019-08-03 20:15 | disposition home or self-care (01) ==
PROVIDERS: Emergency Provider Student in an Organized Health Care Education/Training Program; PCP Internal Medicine
DX: N39.0 Urinary tract infection, site not specified (principal); R26.89 Other abnormalities of gait and mobility; R53.1 Weakness; R29.6 Repeated falls; Z87.440 Personal history of urinary (tract) infections
CPT/HCPCS: 36415; 80053; 87040; 87798; 93005; 99285; 70450; 81003; 81015; 82607; 83605; 84443; 84484; 85025; 86618; 87086; 93010

== ENCOUNTER 2019-08-04 14:17 | Outpatient (CLI) | payer OTHER, SELFPAY ==
--- NOTE | 2019-08-04 | DI.MRI_ITS ---
CLINICAL HISTORY: SUDDEN ONSET BREE/BLE WEAKNESS, ? STROKE/TIA. TECHNIQUE: Multiplanar multisequence MRA of the brain was performed. IV Contrast: mL of Magnevist contrast administered. COMPARISON: None. FINDINGS: Carotid Arteries: Petrous: Normal. Cavernous: Normal. Cerebral: Normal. Middle Cerebral Arteries: Right: No aneurysm or significant stenosis. Left: No aneurysm or significant stenosis. Anterior Cerebral Arteries: Right: No aneurysm or significant stenosis. Left: No aneurysm or significant stenosis. Vertebral Arteries: Right: Diminutive. Left: No aneurysm or significant stenosis. . Basilar Artery: No aneurysm or significant stenosis. Small Vessels: No evidence of beading. IMPRESSION: MRA examination of the [place] of [place] is within normal limits.. DATA REPOSITORY:
--- NOTE | 2019-08-04 | DI.MRI_ITS ---
EXAM: MR BRAIN WO CLINICAL HISTORY: SUDDEN ONSET BREE/BLE WEAKNESS, ? STROKE/TIA. TECHNIQUE: Multiplanar multisequence MRI of the brain was performed. CONTRAST MATERIAL: Noncontrast COMPARISON: MR MR BRAIN WO from 03/25/2019 FINDINGS: VENTRICLES AND EXTRA AXIAL SPACES: Normal in size and morphology for the patient's age. HEMORRHAGE: None. CEREBRAL PARENCHYMA: No focus of restricted diffusion to suggest acute infarct. No space-occupying le chantell identified. There is a CSF signal area in the left basal ganglia, which may represent a promine nt perivascular space versus old lacunar infarct. There has been no change from the previous exam. There are no significant white matter changes. MIDLINE SHIFT: None. BRAINSTEM/CEREBELLUM: Normal. CALVARIUM: Unremarkable VISUALIZED PARANASAL SINUSES/MASTOIDS: Clear. OTHER FINDINGS: The orbits and pituitary appear normal as visualized. IMPRESSION: No acute abnormality. DATA REPOSITORY:
== END 2019-08-04 14:37 ==
PROVIDERS: PCP Internal Medicine; Visit Provider Nurse Practitioner Adult Health
DX: G45.9 Transient cerebral ischemic attack, unspecified (principal); M62.81 Muscle weakness (generalized)
CPT/HCPCS: 70544; 70551

== ENCOUNTER 2019-08-07 15:31 | Outpatient (REF) | payer OTHER, SELFPAY ==
--- NOTE | 2019-08-07 11:00 | PAPNONF_PTH ---
PATIENT: Jeff Méndez LOC: [facility] U#:[id number] AGE/SX: 69/M ROOM: RE08/07/[address]: Tito Hill MD : 1950 BED: DIS: 08/07/2019 SPEC #: [id number] RECD: 08/07/19 15:37 STATUS: KALLIE REQ #: [id number] ROCAEL: 08/07/19 11:[address]: Tito Hill DEPT: [facility] Cytology RECD BY: Renetta Bowman ENTERED: 08/07/19 15:37 SP TYPE: JACQUE SAAVEDRA DR: Remberto Aguilar Tissues: 1 - BODY FLUID CYTO(SPUTUM/URINE)[facility] Procedures: BODY FLUID CYTO(URINE/SPUTUM) Comments: (TOTAL VOLUME = 90 ml's) (45 ml's URINE & 45 ml's CYTOLYT ADDED IN 2 CONTAINERS)
== END 2019-08-07 15:51 ==
LOC: LBN 15:31
PROVIDERS: PCP Internal Medicine; Visit Provider Urology
DX: R31.9 Hematuria, unspecified (principal); R82.89 Other abnormal findings on cytological and histological examination of urine
CPT/HCPCS: 88104

== ENCOUNTER 2019-08-17 09:02 | Outpatient (CLI) | payer OTHER, SELFPAY ==
--- NOTE | 2019-08-17 12:19 | DI.RAD_ITS ---
EXAM: XR LUMBAR SPINE COMPLETE CLINICAL HISTORY: LOW BACK PAIN X 3 WEEKS, BLE WEAKNESS X 1 WEEK, [id number]. TECHNIQUE: 2D digital imaging was performed. COMPARISON: CT CT ABDOMEN PELVIS W from 08/04/2018 FINDINGS: There are 5 lumbar type vertebral bodies. There is no evidence of spondylolysis or spondylolisthesis . Alignment is unremarkable. Disc heights are well maintained. Endplate osteophytes are present th roughout the lumbar spine. No acute fracture or subluxation is seen. There are degenerative changes of the facets at multiple levels of the lumbar spine. IMPRESSION: Findings of DISH and multilevel facet arthropathy in the lumbar spine. DATA REPOSITORY: RADIATION DOSE DELIVERED:
== END 2019-08-17 09:22 ==
PROVIDERS: PCP Internal Medicine; Visit Provider Nurse Practitioner Adult Health
DX: M54.5 Low back pain (principal); M62.81 Muscle weakness (generalized); M25.78 Osteophyte, vertebrae
CPT/HCPCS: 72110

== ENCOUNTER 2019-08-28 02:36 | Outpatient (CLI) | payer OTHER, SELFPAY ==
--- NOTE | 2019-08-28 07:15 | DI.US_ITS ---
EXAM: US RENAL CLINICAL HISTORY: r/o mass, HEMATURIA, R31.9. TECHNIQUE: Burch scale, color and spectral Doppler were used. COMPARISON: CT CT ABDOMEN PELVIS W from 08/04/2018 FINDINGS: Renal size in cm: Right: 10.3 left: 11.9 Echogenicity: Normal Hydronephrosis: No Cyst or mass: No Nephrolithiasis: No Bladder:Thick walled. Inferior septation. Markedly distended. Small amount of debris is seen in th e bladder. Prevoid vol:1424 cc Postvoid vol: 740 cc The ureteral jets were not visualized. The prostate was not seen. IMPRESSION: Distended urinary bladder. Large postvoid residual. No renal or bladder mass. DATA REPOSITORY:
== END 2019-08-28 02:56 ==
PROVIDERS: PCP Internal Medicine; Visit Provider Urology
DX: R31.9 Hematuria, unspecified (principal); N32.89 Other specified disorders of bladder; R39.198 Other difficulties with micturition
CPT/HCPCS: 76770

== ENCOUNTER 2019-09-03 12:11 | Outpatient (CLI) | payer OTHER, SELFPAY ==
--- NOTE | 2019-09-03 11:00 | DI.RAD_ITS ---
EXAM: XR KNEE RT 3V AP,LAT,NATALIYA CLINICAL HISTORY: knee pain TECHNIQUE: COMPARISON: CR XR KNEE LT 3V AP,LAT,NATALIYA from 09/03/2019 FINDINGS: Three views were obtained. There is severe narrowing of the medial tibiofemoral cartilaginous joint space with mild medial subluxation of the femur on the tibia. There is subchondral sclerosis of the medial femoral condyle and medial tibial plateau. There moderate marginal osteophytes seen predominantly at the medial tibiofemoral joint and the russ lofemoral joint. No other significant bony abnormality seen. IMPRESSION: Severe DJD predominantly involving medial tibiofemoral joint
--- NOTE | 2019-09-03 11:00 | DI.RAD_ITS ---
EXAM: XR KNEE LT 3V AP,LAT,NATALIYA CLINICAL HISTORY: knee pain TECHNIQUE: COMPARISON: CR RIGHT KNEE COMPLETE from 03/12/2008 FINDINGS: Three views were obtained. There is severe narrowing of the medial tibiofemoral cartilaginous joint space. There is subchondral sclerosis of the adjacent bones. There are moderate hypertrophic jenaro nal osteophytes of all 3 joints of the knee. IMPRESSION: DJD predominantly involving medial tibiofemoral joint.
== END 2019-09-03 12:31 ==
PROVIDERS: PCP Nurse Practitioner Adult Health; Referring Provider Nurse Practitioner Adult Health; Visit Provider Physician Assistant
DX: M25.562 Pain in left knee (principal); M25.561 Pain in right knee; M17.0 Bilateral primary osteoarthritis of knee
CPT/HCPCS: 73562

== ENCOUNTER 2019-09-15 12:45 | Outpatient (REF) | payer OTHER, SELFPAY | END 2019-09-15 13:05 | LOC: LBN 12:45 | PROVIDERS: PCP Nurse Practitioner Adult Health; Visit Provider Urology | DX: N39.0 Urinary tract infection, site not specified (principal) | CPT/HCPCS: 87077; 87086; 87186 ==

== ENCOUNTER 2019-09-25 08:10 | Outpatient (CLI) | payer OTHER, SELFPAY ==
[2019-09-26 18:08] LABS: COVID-19 RT-PCR Result NEGATIVE (Negative)
== END 2019-09-25 08:30 ==
PROVIDERS: PCP Nurse Practitioner Adult Health; Visit Provider Student in an Organized Health Care Education/Training Program
DX: G56.03 Carpal tunnel syndrome, bilateral upper limbs (principal); G56.23 Lesion of ulnar nerve, bilateral upper limbs
CPT/HCPCS: U0003

== ENCOUNTER 2019-09-29 09:02 | Day surgery (SDC) | payer OTHER, SELFPAY ==
[2019-09-29 09:46] VITALS: BP 114/72; PULSE 57; RESP 16; TEMP 35.9; O2SAT 95
[2019-09-29] MEDS: Lactated Ringers 1,000 ML 80 ML IV (10:00)
--- NOTE | 2019-09-29 10:03 | W.PM.DSUDISC ---
Discharge Plan Disposition Patient Disposition: HOME Condition: Stable Discharge Details Reason For Visit: Left Carpal and Cubital Tunnel Syndrome Attending Provider: Mac Chi Primary Care Provider: Sandy Zepeda Home Meds and New Rx's Prescriptions: New acetaminophen 500 mg tablet 500 mg PO Q6H PRN PRN (Reason: pain) Qty: 60 RF: 3 ibuprofen 600 mg tablet 600 mg PO TID PRNQty: 90 RF: 3 tramadol 50 mg tablet 50 mg PO Q8H PRNQty: 6 RF: 0 Continued Pradaxa 150 mg capsule 150 mg PO BID Qty: 60 RF: 0 tamsulosin 0.4 mg capsule 0.4 mg PO DAILY Qty: 90 RF: 4 ciprofloxacin HCl 500 mg tablet 500 mg PO BID Qty: 14 RF: 0 pramipexole 1 MG tablet 2 mg PO HS RF: 0 furosemide 40 MG tablet 1 tab PO DAILY RF: 0 finasteride 5 mg Tablet 5 mg PO DAILY RF: 0 escitalopram oxalate 5 mg Tablet 5 mg PO DAILY RF: 0 cyanocobalamin (vitamin B-12) 1,000 mcg Tablet 1,000 mcg PO DAILY RF: 0 sulfamethoxazole-trimethoprim [Bactrim DS] 800-160 mg tablet 1 tab PO DAILY RF: 0 Discontinued acetaminophen [Tylenol Extra Strength] 500 mg tablet 500 mg PO ONCE PRNRF: 0 ibuprofen 600 mg Tablet 600 mg PO TID RF: 0 Discharge Instructions Additional Instructions: Activity: You should stay in the sling for the first 2 weeks. You may come out of the sling as tolerated for gentle motion and hygiene but should largely remain in the sling to allow the incision site to heal. Gentle motion of the elbow, hand, wrist, and fingers is okay and encouraged after the first few days, but no repetitive activites nor heavy lifting. You may apply ice. You may use the hand and elbow as needed but do not push your activity. Medications: - You should take Tylenol and Ibuprofen around the clock. - You have been prescribed Tramadol for breakthrough pain. Dressings: - The initial surgical dressing should stay in place for 3 days. It may then be removed and kept clean and dry. You should cover with a light gauze dressing or bandaids. - You may shower after 3 days and get the wound wet. Follow-up: 10 days Stand Alone Forms: Arti Canales Tunnel Release Referrals: Mac Chi MD [ [facility] STAFF PHYSICIAN] - Equipment/Supplies: Sling Activity:: Elevate Remove Dressings/Wound Care:: 72 hours Shower/Bathe:: 72 hours Diet:: As Tolerated Discharge Orders Discharge Orders: Discharge Order (Routine); Ordered 09/29/19 Ordered By: Mac Chi DS: Diagnosis Discharge Diagnosis (1) 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: Status: Acute (2) Carpal tunnel syndrome on both sides: Status: Acute
[2019-09-29] MEDS: CLINDAMYCIN 900 MG/50 ML BAG 50 MG IVPB (10:25)
[2019-09-29 11:52] VITALS: BP 115/62; PULSE 80; RESP 15; TEMP 36.5; O2SAT 96
[2019-09-29 11:57] VITALS: BP 111/68; PULSE 76; RESP 17; TEMP 36.5; O2SAT 95
[2019-09-29 12:02] VITALS: BP 115/62; PULSE 80; RESP 15; TEMP 36.5; O2SAT 96
[2019-09-29 12:17] VITALS: BP 119/70; PULSE 76; RESP 17; TEMP 36.5; O2SAT 99
[2019-09-29 13:04] VITALS: BP 112/69; PULSE 71; RESP 18; TEMP 36.2; O2SAT 96
--- NOTE | 2019-09-29 20:46 | ROE_ITS ---
Date of service: 09/29/19 Time of Service: 13:03 Operative Note Operative Note DATE OF PROCEDURE: 09/29/19 PRE-OP DIAGNOSIS: Left Carpal and Cubital Tunnel Syndrome POST-OP DIAGNOSIS: same PROCEDURE: Left Cubital Tunnel Decompression with Anterior Subcutaneous Transposition and Left Endoscopic Carpal Tunnel Release SURGEON: Mac Chi COMPANY CONTROLLER: Carmencita Odell ANESTHESIA: MAC ESTIMATED BLOOD LOSS: 5 PATHOLOGY: none sent TOURNIQUET TIME: 28 COMPLICATIONS: None Patient was transported to: PACU Patient's condition: stable Indications: Cosmo is a 69 year old male who has had symptoms of cubital and carpal tunnel syndrome. He also has other neurologic complaints and notable progression of weakness, numbness, and dysfunction. Nonoperative treatment options had been trialed. Nerve conduction studies identified the cubital tunnel as the point of compression. Given failure of nonoperative treatments and persistent symptoms, I offered operative intervention. I reviewed the technical details of a cubital tunnel decompression with possible anterior subcutaneous transposition. I reviewed the risk of the procedure to include bleeding, infection, pain, stiffness, tendon instability, damage to the superficial radial nerve, and complete release. Despite these risks, the patient elected to proceed. Findings: An endoscopic carpal tunnel release was performed without difficulty. There was a tightened cubital tunnel. At the level of the cubital tunnel through the FCU muscle bellies, there was significant flattening of the nerve apparent discoloration with a thickened sheath coating it and a neurolysis was performed. The ulnar nerve was release from the first motor branch distally through the [place] proximally. It was unstable so an anterior subcutaneous transposition was performed. Procedure Description: Cosmo was greeted in the preoperative holding area. Name and surgical site were confirmed. The history and physical was completed. The consent was reviewed the patient and signed. Cosmo was taken back to the operating room. He was placed into the supine position on the operating room table with the right arm on an arm board. A nonsterile tourniquet was placed high onto the arm, into the axialla. All bony prominences were well padded. Prophylactic antibiotics in the form of Cefazolin were administered. The right arm was then prepped with Chloraprep and draped in a standard fashion with stockinette and extremity drape. A timeout to confirm correct identity, side and site, procedure, allergies, anesthesia, and medical concerns was performed. The surgical site was marked in the volar wrist creases in line with the radial border of the fourth ray as well as over the medial elbow just posterior to the medial epicondyle. These sites were then anesthetized with buffered 0.25% bupivacaine with epinephrine. The limb was then exsanguinated with an Esmarch. The skin of the wrist was incised with a 15 blade, approximately 1cm. The skin only was cut and the deeper tissue was dissected bluntly with a tenotomy scissor, avoiding passing nerve and venous structures. The fascia was penetrated and opened bluntly. A two-prong skin hook was placed under this proximal fascial edge. A series of hamate finders were used to identify and dilate the carpal tunnel. Synovial elevator was used to free synovial attachments to the underside of the transverse carpal ligament. My thumb was kept in the palm to doris the distal extent of the carpal tunnel and correctly position the hand. The Microaire endoscope was inserted without difficulty and without resistance. Excellent visualization showed horizontally running fibers of the transverse carpal ligament (TCL). The distal extent of the TCL was visualized and the end of the scope palpated with the thumb. The blade was elevated and withdrawn from distal to proximal. The TCL was split into two flaps. The endoscope was reinserted to confirm complete release and any remnant ligament was incised. The scope was withdrawn and the proximal aspect of the carpal tunnel was grossly inspected and appeared release with the median nerve visible. There was notable synovium which filled the space as wel l. The antebrachial fascia at the level of the wrist was then freed from the overlying skin and then the underlying median nerve with blunt dissection. This was transected longitudinally for about 3cm proximal to the wrist incision. The wound was then irrigated with easy flow of irrigant distally and proximally. The incision was closed with a single 4-0 Nylon suture. Attention was then turned to the elbow. The skin was incised only. The deep tissue and subcutaneous fat was dissected with a tenotomy scissors trying to protect any branches of the medial antebrachial cutaneous nerve. Any branches that were identified were retracted out of the way. The ulnar nerve was palpated and identified. A small window into the cubital tunnel, sheath overlying the nerve, was created and the nerve was able to be palpated with the [place]. A Metzenbaum scissor was then used to open up the sheath starting with Mendoza's ligament. I then worked distal over the ulnar nerve releasing any constraints against the nerve all the way to the fascia of the FCU muscle belly. This muscle belly was bluntly all the way down to the first motor branch of the ulnar nerve and the overlying fascia was incised. The nerve was noted to be very flattened in this area from the medial epicondyle into the FCU muscle bellies. There was some discoloration of the tiburcio as well. Additionally, there was a thickened sheath over the nerve. Then starting there at the medial epicondyle, I proceeded to work proximally to release any constraints over the ulnar nerve. This was taken all the way to the arc[place] of [place]. The medial intermuscular septum was also palpated and any sharp edges against the ulnar nerve were resected and released. After fully releasing the nerve it was inspected visually. The thickened sheath was released as a neurolysis throughout it's course. I was able to palpate the nerve fully and reach one finger up into the proximal and distal aspects to make sure there were no constraints against the nerve. A freer elevator was also used to slide easily against the ulnar nerve without any points of constriction. The arm was then taken through range of motion. The ulnar nerve did sublux/dislocate out of its groove behind the medial epicondyle. Therefore completed the neural lysis and released any attachments to the ulnar nerve. I was able to mobilize the nerve anteriorly quite easily. There is no notable constriction proximally or distally. The nerve was easily moved anteriorly. I then elevated off a 1 x 1 cm piece of flexor pronator mass fascia based on the medial epicondyles. This was then sutured to the deep subcutaneous tissue and fat at the level of the medial condyle the arm was taken through range of motion of the nerve stable. A [place] elevator was placed along the nerve to make sure there is no points of constriction. The tourniquet was then deflated. Any areas of bleeding were cauterized with bipolar electrocautery. The wound was thoroughly irrigated. The deep tissue was closed with a 3-0 Vicryl. The skin was closed with a 4-0 nylon. The wounds were dressed with Xeroform, 4 x 4's, ABD, Kerlix and an Behzad wrap. Cosmo was steve shahid into a sling. Cosmo was transferred back to the PACU in a stable condition.
== END 2019-09-29 14:15 | disposition home or self-care (01) ==
PROVIDERS: PCP Nurse Practitioner Adult Health; Visit Provider Student in an Organized Health Care Education/Training Program
PROC: (CPT 64718; principal; 2019-09-29 10:30)
PROC: 01N54ZZ Release Median Nerve, Percutaneous Endoscopic Approach (ICD-10-PCS; CPT 29848; 2019-09-29 10:30)
DX: G56.23 Lesion of ulnar nerve, bilateral upper limbs (principal); G56.03 Carpal tunnel syndrome, bilateral upper limbs; G47.33 Obstructive sleep apnea (adult) (pediatric); I10 Essential (primary) hypertension
CPT/HCPCS: 64718; 29848; J1100; J2704; J3010; L3650

== ENCOUNTER 2019-10-05 11:48 | Emergency (ER) | payer OTHER, SELFPAY ==
--- NOTE | 2019-10-05 12:00 | RT.EKG_ITS ---
APPROVED REPORT Exam: Resting ECG Patient Location: E HR:54 bpm ECG Measurements Heart Rate 54 AXIS HI [id number] P [id number] QRSd 174 QRS -64 QT 465 T 262 QTc 442 Conclusion Atrial fibrillation...V-rate 41- 46, irreg A-activity RBBB and LAFB...QRSd >120mS, axis(-40,240) Abnormal T, consider ischemia, lateral leads...T <-0.20mV, I aVL V5 V6 I have reviewed and interpreted ECG and agree with software generated interpretation.
[2019-10-05 12:11] VITALS: BP 94/64; PULSE 78; RESP 18; TEMP 36.7; O2SAT 98
[2019-10-05 13:06] VITALS: RESP 16
[2019-10-05 13:12] LABS: Abs Immature Grans 0.01 10^3/uL (0.0-0.06); Absolute Basophil Count 0.03 10^3/uL (0.0-0.2); Absolute Eosinophil Count 0.16 10^3/uL (0.0-0.7); Absolute Lymphocyte Count 1.08 10^3/uL (1.2-3.4); Absolute Monocyte Count 0.55 10^3/uL (0.1-0.8); Absolute Neutrophil Count 3.73 10^3/uL (1.2-6.7); Basophils % 0.5; Eosinophils % 2.9; HCT 42.8 % (40.0-50.0); HGB 13.9 g/dL (13.5-17.5); Immature Grans % 0.2; Lactate 0.8 mmol/L (0.6-1.4); Lymphocytes % 19.4; MCH 30.8 pg (27.0-33.0); MCHC 32.5 % (32.0-36.0); MCV 94.9 fL (80-95); MPV 9.2 fL (8.0-11.0); Monocytes % 9.9; Neutrophils % 67.1; Nucleated RBC 0 %; Platelet Count 180 10^3/uL (130-400); RBC 4.51 10^6/uL (4.36-5.78); RDW 14.8 % (11.8-14.1); RDW-SD 51.8 fL; WBC 5.56 10^3/uL (4.4-10.8)
[2019-10-05 13:51] LABS: ALT 36 U/L (16-63); AST 26 U/L (15-37); Albumin 3.2 g/dL (3.4-5.0); Alkaline Phosphatase 53 U/L (46-116); Anion Gap 3.8 mmol/L (3-11); BUN 28 mg/dL (7-18); Bilirubin, Total 0.6 mg/dL (0.2-1.0); CO2 31.2 mmol/L (21.0-32.0); Calcium 8.9 mg/dL (8.5-10.1); Chloride 106 mmol/L (98-107); Glucose 100 mg/dL (74-106); Magnesium 1.8 mg/dL (1.8-2.4); Potassium 4.7 mmol/L (3.5-5.1); Sodium 141 mmol/L (136-145); TSH (W/Ref FT4) 0.44 uIU/mL (0.36-3.74); Total Protein 6.5 g/dL (6.4-8.2)
[2019-10-05 13:59] LABS: CREATININE 0.75 mg/dL (0.70-1.30)
[2019-10-05 14:02] VITALS: BP 100/74; PULSE 61; RESP 16; TEMP 36.4; O2SAT 98
[2019-10-05 14:12] LABS: Vitamin B12 896 pg/mL (193-986)
--- NOTE | 2019-10-05 14:54 | W.ED.GENAD ---
Discharge Plan Discharge Details Chief Complaint: AMS/LOC Primary Care Provider: Sandy Zepeda ED Provider: Dora Bridges Home Meds and New Rx's Prescriptions: No Action Pradaxa 150 mg capsule 150 mg PO BID Qty: 60 RF: 0 tamsulosin 0.4 mg capsule 0.4 mg PO DAILY Qty: 90 RF: 4 pramipexole 1 MG tablet 2 mg PO HS RF: 0 furosemide 40 MG tablet 1 tab PO DAILY RF: 0 finasteride 5 mg Tablet 5 mg PO DAILY RF: 0 escitalopram oxalate 5 mg Tablet 5 mg PO DAILY RF: 0 cyanocobalamin (vitamin B-12) 1,000 mcg Tablet 1,000 mcg PO DAILY RF: 0 sulfamethoxazole-trimethoprim [Bactrim DS] 800-160 mg tablet 1 tab PO DAILY RF: 0 acetaminophen 500 mg tablet 500 mg PO Q6H PRN PRN (Reason: pain) Qty: 60 RF: 3 ibuprofen 600 mg tablet 600 mg PO TID PRNQty: 90 RF: 3 tramadol 50 mg tablet 50 mg PO Q8H PRNQty: 6 RF: 0 Discharge Data Discharge Date/Time-TO BE ENTERED AT DEPARTURE: 10/05/19 18:18 Medical Decision Making Jeff Méndez is a 6-year-old man with a history of atrial fibrillation, traumatic brain injury, recurrent UTI presenting to the emergency department with upper and lower extremity weakness. Exam patient with reduced waterproof bag sewer strength bilaterally, normal cerebellar exams of the upper and lower extremities, no pronator drift. Concern for possible cervical spine pathology versus other. Exam/history is not consistent with meningitis, CVA, other acute emergent intracranial process. I discussed patient presentation with Dr. Barry of neurology for imaging recommendations, MRIc-spine Noncon versus MRI with contrast. She recommends MRI noncontrast at this time. Plan for MRI of the C-spine, screening labs. MRI shows cord compression with signal of the cord. Dr. Chi aware of findings and at bedside with patient. I discussed the patient with orthopedic surgery (on-call for spine) at [facility] who accepts patient for transfer. Patient agreeable to transfer. He was transferred from the emergency department to [facility] without further issue. Clinical impression: Spinal cord compression at C3-C4 Disposition: [facility] Medical Records Medical records reviewed: Yes I reviewed the patient's medical records. Imaging Data Radiologic Study: Attestation: I personally reviewed and interpreted this imaging study as follows: Radiologist's impression: EXAM: MR CERVICAL SPINE WO CLINICAL HISTORY: b/l arm and waterproof bag sewer weakness TECHNIQUE: Multiplanar multisequence MRI of the cervical spine was performed without intravenous contrast. COMPARISON: CT CT BRAIN NECK CTA from 03/24/2019 CR XR KNEE RT 3V AP,LAT,NATALIYA from 09/03/2019 FINDINGS: There is a chronic appearing deformity with proc with partial fusion between C6 and C7. A Schmorl's node is seen at the inferior endplate. At C2-3, there are right-sided osteophytes causing right neural foraminal narrowing. There is mild broad-based disc bulging. At C3-4, there are endplate osteophytes and broad-based disc bulging. There are facet degenerative changes causing narrowing of the AP dimension of the central canal. There is high signal within the cord at this level. At C4-5, there is mild disc bulging but no significant narrowing of the central canal. At C5-6, there is mild broad-based disc bulging. At C6-7, there is a rudimentary disc. There is mild disc bulging at C 7 T1 and T1-2. IMPRESSION: Combination of disc osteophytes and and facet degenerative changes causes narrowing of the AP dimension of the central canal. There is high signal within the spinal cord at this level. Lab Data Lab results reviewed: Yes I reviewed the patient's lab results. Labs: 10/05/19 15:00 Urine - Reflex from Ua Urine Culture - Pending 10/05/19 13:28 Blood Blood Culture - Pending 10/05/19 13:16 Blood Blood Culture - Pending Laboratory Tests Range/Units 10/05/19 10/05/19 10/05/19 12:15 12:15 12:15 WBC (4.4-10.8) 10^3/uL 5.56 RBC (4.36-5.78) 10^6/uL 4.51 Hgb (13.5-17.5) g/dL 13.9 Hct (40.0-50.0) % 42.8 MCV (80-95) fL 94.9 MCH (27.0-33.0) pg 30.8 MCHC (32.0-36.0) % 32.5 RDW (11.8-14.1) % 14.8 H Plt Count (130-400) 10^3/uL 180 MPV (8.0-11.0) fL 9.2 Immature Gran % 0.2 Neutrophils % 67.1 Lymphocytes % 19.4 Monocytes % 9.9 Eosinophils % 2.9 Basophils % 0.5 Absolute Neutrophils (1.2-6.7) 10^3/uL 3.73 Absolute Lymphocytes (1.2-3.4) 10^3/uL 1.08 L Absolute Monocytes (0.1-0.8) 10^3/uL 0.55 Absolute Eosinophils (0.0-0.7) 10^3/uL 0.16 Absolute Basophils (0.0-0.2) 10^3/uL 0.03 Sodium (136-145) mmol/L 141 Potassium (3.5-5.1) mmol/L 4.7 Chloride (98-107) mmol/L 106 Carbon Dioxide (21.0-32.0) mmol/L 31.2 Anion Gap (3-11) mmol/L 3.8 BUN (7-18) mg/dL 28 H Creatinine (0.70-1.30) mg/dL 0.75 Estimated GFR/1.73 m2 (mL/min/1.73m2) >= 60.00 Glucose (74-106) mg/dL 100 Lactate (0.6-1.4) mmol/L 0.8 Calcium (8.5-10.1) mg/dL 8.9 Magnesium (1.8-2.4) mg/dL 1.8 Total Bilirubin (0.2-1.0) mg/dL 0.6 AST (15-37) U/L 26 ALT (16-63) U/L 36 Alkaline Phosphatase (46-116) U/L 53 Troponin I (<0.06) ng/mL Total Protein (6.4-8.2) g/dL 6.5 Albumin (3.4-5.0) g/dL 3.2 L Vitamin B12 (193-986) pg/mL TSH (0.36-3.74) uIU/mL 0.44 Urine Color (Yellow) Urine Clarity (Clear) Urine pH (5-8) Ur Specific Hitchins (1.005-1.025) Urine Protein (Negative) mg/dL Urine Ketones (Negative) mg/dL Urine Blood (Negative) Urine Nitrite (Negative) Urine Bilirubin (Negative) Urine Urobilinogen (Up TO 0.2) EU/dL Ur Leukocyte Esterase (Negative) Urine RBC (0-2) HPF Urine WBC (0-5) HPF Ur Epithelial Cells (Negative) HPF Urine Crystals (Negative) HPF Urine Bacteria (Negative) HPF Urine Casts (Negative) LPF Urine Mucus (Negative) Ur Culture Indicated? Urine Glucose (Negative) mg/dL Range/Units 10/05/19 10/05/19 10/05/19 12:15 12:15 15:00 WBC (4.4-10.8) 10^3/uL RBC (4.36-5.78) 10^6/uL Hgb (13.5-17.5) g/dL Hct (40.0-50.0) % MCV (80-95) fL MCH (27.0-33.0) pg MCHC (32.0-36.0) % RDW (11.8-14.1) % Plt Count (130-400) 10^3/uL MPV (8.0-11.0) fL Immature Gran % Neutrophils % Lymphocytes % Monocytes % Eosinophils % Basophils % Absolute Neutrophils (1.2-6.7) 10^3/uL Absolute Lymphocytes (1.2-3.4) 10^3/uL Absolute Monocytes (0.1-0.8) 10^3/uL Absolute Eosinophils (0.0-0.7) 10^3/uL Absolute Basophils (0.0-0.2) 10^3/uL Sodium (136-145) mmol/L Potassium (3.5-5.1) mmol/L Chloride (98-107) mmol/L Carbon Dioxide (21.0-32.0) mmol/L Anion Gap (3-11) mmol/L BUN (7-18) mg/dL Creatinine (0.70-1.30) mg/dL Estimated GFR/1.73 m2 (mL/min/1.73m2) Glucose (74-106) mg/dL Lactate (0.6-1.4) mmol/L Calcium (8.5-10.1) mg/dL Magnesium (1.8-2.4) mg/dL Total Bilirubin (0.2-1.0) mg/dL AST (15-37) U/L ALT (16-63) U/L Alkaline Phosphatase (46-116) U/L Troponin I (<0.06) ng/mL < 0.05 Total Protein (6.4-8.2) g/dL Albumin (3.4-5.0) g/dL Vitamin B12 (193-986) pg/mL 896 TSH (0.36-3.74) uIU/mL Urine Color (Yellow) Yellow Urine Clarity (Clear) Sl cloudy Urine pH (5-8) 5.5 Ur Specific Hitchins (1.005-1.025) 1.020 Urine Protein (Negative) mg/dL Negative Urine Ketones (Negative) mg/dL Negative Urine Blood (Negative) Trace-intact H Urine Nitrite (Negative) Negative Urine Bilirubin (Negative) Negative Urine Urobilinogen (Up TO 0.2) EU/dL 0.2 Ur Leukocyte Esterase (Negative) Moderate H Urine RBC (0-2) HPF 0-2 Urine WBC (0-5) HPF 10-20 H Ur Epithelial Cells (Negative) HPF Few Urine Crystals (Negative) HPF Negative Urine Bacteria (Negative) HPF Moderate Urine Casts (Negative) LPF Negative Urine Mucus (Negative) Negative Ur Culture Indicated? Yes Urine Glucose (Negative) mg/dL Negative Range/Units 10/05/19 15:18 WBC (4.4-10.8) 10^3/uL RBC (4.36-5.78) 10^6/uL Hgb (13.5-17.5) g/dL Hct (40.0-50.0) % MCV (80-95) fL MCH (27.0-33.0) pg MCHC (32.0-36.0) % RDW (11.8-14.1) % Plt Count (130-400) 10^3/uL MPV (8.0-11.0) fL Immature Gran % Neutrophils % Lymphocytes % Monocytes % Eosinophils % Basophils % Absolute Neutrophils (1.2-6.7) 10^3/uL Absolute Lymphocytes (1.2-3.4) 10^3/uL Absolute Monocytes (0.1-0.8) 10^3/uL Absolute Eosinophils (0.0-0.7) 10^3/uL Absolute Basophils (0.0-0.2) 10^3/uL Sodium (136-145) mmol/L Potassium (3.5-5.1) mmol/L Chloride (98-107) mmol/L Carbon Dioxide (21.0-32.0) mmol/L Anion Gap (3-11) mmol/L BUN (7-18) mg/dL Creatinine (0.70-1.30) mg/dL Estimated GFR/1.73 m2 (mL/min/1.73m2) Glucose (74-106) mg/dL Lactate (0.6-1.4) mmol/L Calcium (8.5-10.1) mg/dL Magnesium (1.8-2.4) mg/dL Total Bilirubin (0.2-1.0) mg/dL AST (15-37) U/L ALT (16-63) U/L Alkaline Phosphatase (46-116) U/L Troponin I (<0.06) ng/mL < 0.05 Total Protein (6.4-8.2) g/dL Albumin (3.4-5.0) g/dL Vitamin B12 (193-986) pg/mL TSH (0.36-3.74) uIU/mL Urine Color (Yellow) Urine Clarity (Clear) Urine pH (5-8) Ur Specific Hitchins (1.005-1.025) Urine Protein (Negative) mg/dL Urine Ketones (Negative) mg/dL Urine Blood (Negative) Urine Nitrite (Negative) Urine Bilirubin (Negative) Urine Urobilinogen (Up TO 0.2) EU/dL Ur Leukocyte Esterase (Negative) Urine RBC (0-2) HPF Urine WBC (0-5) HPF Ur Epithelial Cells (Negative) HPF Urine Crystals (Negative) HPF Urine Bacteria (Negative) HPF Urine Casts (Negative) LPF Urine Mucus (Negative) Ur Culture Indicated? Urine Glucose (Negative) mg/dL ECG Data Attestation: I personally reviewed and interpreted this ECG (s) as follows: Interpretation: EKG shows A. fib at 54 EKG shows atrial fibrillation 54, left anterior fascicular block, right bundle branch block, extensive T wave inversions changed from prior, no STEMI HPI General Mode of arrival: ambulatory. Date/Time Provider Initiated Documentation: 10/05/19 12:20. Limitations to Documentation: no limitations. Information obtained by: patient, family, RN notes reviewed and old records reviewed. HPI Narrative: Jeff Méndez is a 6-year-old man with a history of atrial fibrillation, traumatic brain injury, recurrent UTI presenting to the emergency department with upper and lower extremity weakness. Patient is accompanied by his ex- also provides a history. Patient reports that he has had more than 6 months of progressive weakness in both legs, resulting in frequent falls. Patient reports that this seems to be slowly getting worse over time without acute change. Patient reports that 2 months ago or so he began developing upper extremity weakness bilaterally. He had MRI of the brain, was seen by neurology and had EMG, and was diagnosed with carpal tunnel syndrome. Patient underwent carpal tunnel surgery to the wrist and elbow 1 week ago. Patient reports that since surgery he has been having worsening upper extremity weakness, particularly on the right which is the nonsurgical side. Patient reports that he has difficulty with his waterproof bag sewer, can no longer hold a pen and write with his right hand, and is having difficulty functioning around his home because of this. Patient lives alone. He reports numbness in his fingertips bilaterally. He denies any pain, fevers, rash, vomiting, diarrhea, shortness of breath, cough. Has been eating and drinking as usual. Related Data Home Medications Medication Instructions Recorded Confirmed pramipexole 2 mg PO HS 08/04/12 10/05/19 furosemide 1 tab PO DAILY 09/16/15 10/05/19 tamsulosin 0.4 mg capsule 0.4 mg PO DAILY #90 cap 08/18/18 10/05/19 finasteride 5 mg PO DAILY 03/24/19 10/05/19 escitalopram oxalate 5 mg PO DAILY 08/03/19 10/05/19 dabigatran etexilate 150 mg capsule 150 mg PO BID #60 cap 09/18/19 10/05/19 cyanocobalamin (vitamin B-12) 1,000 mcg PO DAILY 09/28/19 10/05/19 acetaminophen 500 mg PO Q6H PRN PRN #60 tab 09/29/19 10/05/19 ibuprofen 600 mg PO TID PRN #90 tab 09/29/19 10/05/19 sulfamethoxazole-trimethoprim 1 tab PO DAILY 09/29/19 10/05/19 [Bactrim DS] tramadol 50 mg PO Q8H PRN #6 tab 09/29/19 10/05/19 Previous Rx's Medication Instructions Recorded tamsulosin 0.4 mg capsule 0.4 mg PO DAILY #90 cap 08/18/18 dabigatran etexilate 150 mg capsule 150 mg PO BID #60 cap 09/18/19 acetaminophen 500 mg PO Q6H PRN PRN #60 tab 09/29/19 ibuprofen 600 mg PO TID PRN #90 tab 09/29/19 tramadol 50 mg PO Q8H PRN #6 tab 09/29/19 Allergies Allergy/AdvReac Type Severity Reaction Status Date / Time cephalexin monohydrate Allergy Intermediate Skin Rash Unverified 10/05/19 12:18 [From Keflex] aspirin [From Percodan] Allergy Verified 10/05/19 12:18 hydrocodone AdvReac Severe Psychosis Unverified 10/05/19 12:18 oxycodone [Oxycodone] AdvReac Intermediate Psychosis Unverified 10/05/19 12:18 General Stated Complaint: AMS/LOC ROSCOE: 2 Review of Systems Narrative: Constitutional: denies fevers Eyes: denies eye pain ENT: denies ear pain, dental pain, sore throat Cardiovascular: denies chest pain, edema Respiratory: denies SOB, cough GI: denies abdominal pain, vomiting, diarrhea : denies flank pain MSK: denies back pain, neck pain, arthralgias, myalgias Skin: denies rash Neuro: denies headaches, reports weakness, numbness as per HPI [facility] Medical History BPH (benign prostatic hyperplasia) (Chronic) BPPV (benign paroxysmal positional vertigo) (Acute) Chewing tobacco nicotine dependence (Acute) Chronic atrial fibrillation (Chronic) F/U with cardiology at [place] Chronic gout (Acute) 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 Kristyn Ornelas for same. Hyperlipidemia (Acute) Hypertension (Chronic) Incomplete emptying of bladder (Acute) had a vicente present assisted current use of anticoagulant (Acute) Marijuana use, continuous (Chronic) Marital conflict (Chronic) Memory deficits (Chronic) Morbid obesity with BMI of 45.0-49.9, adult (Resolved) Myocardial ischemia (Acute) Per pt. 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 Daughter No problems noted. Social History Smoking/Tobacco Use Status: Current every day Tobacco Type: smokeless tobacco Smokeless tobacco user: chewing tobacco Quit status: not considering quitting Alcohol Intake: former Drug use: Daily Substance use type: marijuana and tranquilizers Counseling given: Yes Counseling provided: provider counseling Details: chew last night @ 2200. Marijuana: t-2, bowl Caregiver/Support person: Yes Household members: spouse Housing: house Number of Children: 2 number of grandchildren: 3 Communication Needs: Corrective Lenses Education Level: high school Do you need help understanding health information?: Often current occupation: retired Pets and animals: No What is your relationship status?: How often do you talk on the phone with friends or family?: twice per week How often do you get together with friends or relatives?: twice per week Panel score (0-1 are the most socially isolated patients): 2 What type of physical activity do you participate in: walking, bicycling and occasional exercise Special jada needs: No Agree to transfusion: Yes Seatbelt use: always Drive intox or ride w/intox ross carrier driver: No Working smoke detector in home: Yes Fire extinguisher in home: Yes Do you feel safe at home: Yes Additional Social history: he and his live very separate lives each has own floor in the home; Cosmo lives in basement not close; have been in counseling previously; daughter is DPOA Exam Narrative Exam Narrative: Constitutional: well and [id number], pleasant, conversing normally HENT: head atraumatic/normocephalic/normal inspection, mucous membranes moist Eyes: conjunctiva normal, sclera normal, pupils 3mm b/l Neck: no stridor, normal ROM, trachea midline, no posterior tenderness palpation Resp: normal work of breathing, LCTAB Cardio: normal rate, normal rhythm, no murmur appreciated Back: normal inspection, no rash Skin: warm, dry, normal color, no rash Neuro: alert, not altered, cranial nerves II through XII intact, waterproof bag sewer strength bilaterally 4/5, biceps and tricep strength bilaterally 5 out of 5, lower extremity strength 5 out of 5, no significant dysmetria bilaterally, normal [id number] bilaterally, normal tone Ext: no edema Psych: normal mood, normal affect, normal behavior Course Vital Signs Vital signs: Vital Signs Temperature 36.7 C 10/05/19 12:11 Pulse 78 10/05/19 12:11 Respiratory Rate 18 10/05/19 12:11 Blood Pressure 94/64 L 10/05/19 12:11 Pulse Oximetry 98 10/05/19 12:11 Temperature 36.7 C 10/05/19 12:11 Temperature Source Temporal Artery Scan 10/05/19 12:11 Pulse 78 10/05/19 12:11 Respiratory Rate 16 10/05/19 13:06 Respiratory Effort Non-Labored 10/05/19 13:06 Respiratory Depth Normal 10/05/19 13:06 Respiratory Pattern Normal 10/05/19 13:06 Blood Pressure 94/64 L 10/05/19 12:11 Blood Pressure Position Supine 10/05/19 12:11 Pulse Oximetry 98 10/05/19 12:11 Oxygen Delivery Method Room Air 10/05/19 12:11 Oxygen Flow Rate 0 10/05/19 12:11 Pain Level 0 10/05/19 12:11 Lab/Test Results Lab/Test Results: 10/05/19 13:28 Blood Blood Culture - Pending 10/05/19 13:16 Blood Blood Culture - Pending Laboratory Tests Range/Units 10/05/19 10/05/19 10/05/19 12:15 12:15 12:15 WBC (4.4-10.8) 10^3/uL 5.56 RBC (4.36-5.78) 10^6/uL 4.51 Hgb (13.5-17.5) g/dL 13.9 Hct (40.0-50.0) % 42.8 MCV (80-95) fL 94.9 MCH (27.0-33.0) pg 30.8 MCHC (32.0-36.0) % 32.5 RDW (11.8-14.1) % 14.8 H Plt Count (130-400) 10^3/uL 180 MPV (8.0-11.0) fL 9.2 Immature Gran % 0.2 Neutrophils % 67.1 Lymphocytes % 19.4 Monocytes % 9.9 Eosinophils % 2.9 Basophils % 0.5 Absolute Neutrophils (1.2-6.7) 10^3/uL 3.73 Absolute Lymphocytes (1.2-3.4) 10^3/uL 1.08 L Absolute Monocytes (0.1-0.8) 10^3/uL 0.55 Absolute Eosinophils (0.0-0.7) 10^3/uL 0.16 Absolute Basophils (0.0-0.2) 10^3/uL 0.03 Sodium (136-145) mmol/L 141 Potassium (3.5-5.1) mmol/L 4.7 Chloride (98-107) mmol/L 106 Carbon Dioxide (21.0-32.0) mmol/L 31.2 Anion Gap (3-11) mmol/L 3.8 BUN (7-18) mg/dL 28 H Creatinine (0.70-1.30) mg/dL 0.75 Estimated GFR/1.73 m2 (mL/min/1.73m2) >= 60.00 Glucose (74-106) mg/dL 100 Lactate (0.6-1.4) mmol/L 0.8 Calcium (8.5-10.1) mg/dL 8.9 Magnesium (1.8-2.4) mg/dL 1.8 Total Bilirubin (0.2-1.0) mg/dL 0.6 AST (15-37) U/L 26 ALT (16-63) U/L 36 Alkaline Phosphatase (46-116) U/L 53 Total Protein (6.4-8.2) g/dL 6.5 Albumin (3.4-5.0) g/dL 3.2 L Vitamin B12 (193-986) pg/mL TSH (0.36-3.74) uIU/mL 0.44 Range/Units 10/05/19 12:15 WBC (4.4-10.8) 10^3/uL RBC (4.36-5.78) 10^6/uL Hgb (13.5-17.5) g/dL Hct (40.0-50.0) % MCV (80-95) fL MCH (27.0-33.0) pg MCHC (32.0-36.0) % RDW (11.8-14.1) % Plt Count (130-400) 10^3/uL MPV (8.0-11.0) fL Immature Gran % Neutrophils % Lymphocytes % Monocytes % Eosinophils % Basophils % Absolute Neutrophils (1.2-6.7) 10^3/uL Absolute Lymphocytes (1.2-3.4) 10^3/uL Absolute Monocytes (0.1-0.8) 10^3/uL Absolute Eosinophils (0.0-0.7) 10^3/uL Absolute Basophils (0.0-0.2) 10^3/uL Sodium (136-145) mmol/L Potassium (3.5-5.1) mmol/L Chloride (98-107) mmol/L Carbon Dioxide (21.0-32.0) mmol/L Anion Gap (3-11) mmol/L BUN (7-18) mg/dL Creatinine (0.70-1.30) mg/dL Estimated GFR/1.73 m2 (mL/min/1.73m2) Glucose (74-106) mg/dL Lactate (0.6-1.4) mmol/L Calcium (8.5-10.1) mg/dL Magnesium (1.8-2.4) mg/dL Total Bilirubin (0.2-1.0) mg/dL AST (15-37) U/L ALT (16-63) U/L Alkaline Phosphatase (46-116) U/L Total Protein (6.4-8.2) g/dL Albumin (3.4-5.0) g/dL Vitamin B12 (193-986) pg/mL 896 TSH (0.36-3.74) uIU/mL
--- NOTE | 2019-10-05 15:00 | DI.MRI_ITS ---
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 COMPARISON: CT CT BRAIN NECK CTA from 03/24/2019 CR XR KNEE RT 3V AP,LAT,NATALIYA from 09/03/2019 FINDINGS: There is a chronic appearing deformity with proc with partial fusion between C6 and C7. A Schmorl's node is seen at the inferior endplate. At C2-3, there are right-sided osteophytes causing right neur al foraminal narrowing. There is mild broad-based disc bulging. At C3-4, there are endplate osteoph ytes and broad-based disc bulging. There are facet degenerative changes causing narrowing of the AP dimension of the central canal. There is high signal within the cord at this level. At C4-5, there is mild disc bulging but no significant narrowing of the central canal. At C5-6, there is mild broad -based disc bulging. At C6-7, there is a rudimentary disc. There is mild disc bulging at C 7 T1 and T1-2. IMPRESSION: Combination of disc osteophytes and and facet degenerative changes causes narrowing of the AP dimensi on of the central canal. There is high signal within the spinal cord at this level. DATA REPOSITORY:
[2019-10-05] MEDS: Ibuprofen 400 MG TAB PO (15:01)
[2019-10-05 15:08] LABS: Bilirubin Negative (Negative); Blood Trace-intact (Negative); Clarity Sl Cloudy (Clear); Glucose Negative (Negative); Ketones Negative (Negative); Leukocyte Esterase Moderate (Negative); Nitrite Negative (Negative); Urobilinogen 0.2 EU/dL (Up TO 0.2); pH 5.5 (5-8)
[2019-10-05 15:18] LABS: Bacteria Moderate HPF (Negative); C & S Indicated? Yes; Casts Negative LPF (Negative); Crystals Negative HPF (Negative); Epithelial Cells Few HPF (Negative); Mucus Negative (Negative); RBC 0-2 HPF (0-2)
[2019-10-05 15:29] LABS: Troponin I < 0.05 ng/mL (<0.06)
[2019-10-05 16:33] LABS: Troponin I < 0.05 ng/mL (<0.06)
[2019-10-05 17:30] VITALS: BP 102/70; PULSE 58; RESP 14; TEMP 36.6; O2SAT 98
--- NOTE | 2019-10-05 17:57 | OCONE_ITS ---
Date of service: 10/05/19 Time of Service: 17:57 History of Present Illness History of Present Illness Chief Complaint: Bilateral Hand Numbness and Weakness, Lower extremity weakness Narrative: Cosmo is a 69-year-old who I have seen previously for primary upper extremity numbness, weakness, and dysfunction. He also reported some bilateral leg pain along with mild weakness and balance issues. He was referred to me for evaluation of bilateral carpal and cubital tunnel syndrome with nerve conduction studies to prove this and negative EMGs. The thought was that he had bilateral carpal tunnel cubital tunnel along with peripheral neuropathy. His history is quite challenging but we proceeded with a left cubital tunnel decompression with anterior transposition as well as a endoscopic carpal tunnel release in the left side. This is approximate 1 week ago. Unfortunately, his daughter called with worsening function of his hands and gait instability with close falls. I discussed this with his daughter over the phone and given the acute worsening my concern was that he actually had a more central process going on and therefore I recommend he go to the emergency department. Currently reports that he is unable to grasp a pen. He is unable to make a fist. He has dense numbness in both hands, currently the right is slightly worse than the left although it was different prior to the cubital tunnel and carpal tunnel release. He also continues to report of pain going into the shoulder and up into the lateral side of the head and by the ear. He has a chronic indwelling catheter. Assessment and Plan Assessment and plan (1) Cervical stenosis of spinal canal: Status: Acute Assessment and plan: Cosmo is a 69-year-old who has cervical stenosis. Unfortunately, this diagnosis has been somewhat delayed. His presentation was quite confusing in the order of things but now looking back it may explain some of his urinary issues as well as his balance issues which predated his more acute complaints of bilateral upper extremity weakness, pain, and dysfunction. I was concerned that there is a more central etiology but he did not have, at least on my initial examination, findings consistent with a cervical myelopathy. However, he continues have progression of symptoms which only seem to be fitting from a cervical spine etiology. Therefore, I did recommend he come into the emergency department today and pushed for a cervical spine MRI which unfortunately did show cervical stenosis with myelomalacia at C3-4. Given the progressive decline of his function I do think he needs an urgent spine surgery consult. Dr. Dora Bridges has been diligent with working this up completely and is managing his potential transfer of care to [facility] spine. I had a long discussion with Cosmo and his daughter. I think a diagnosis of cervical myelopathy is now evident and urgent surgical intervention is likely necessary. I answered all his questions. I also discussed this in detail with his daughter, Judy, who had no other questions. 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 Kristyn Ornelas for same. 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 Daughter No problems noted. Social History Smoking/Tobacco Use Status: Current every day Tobacco Type: smokeless tobacco Smokeless tobacco user: chewing tobacco Quit status: not considering quitting Alcohol Intake: former Drug use: Daily Substance use type: marijuana and tranquilizers Counseling given: Yes Counseling provided: provider counseling Details: chew last night @ 2200. Marijuana: t-2, bowl Caregiver/Support person: Yes Household members: spouse Housing: house Number of Children: 2 number of grandchildren: 3 Communication Needs: Corrective Lenses Education Level: high school Do you need help understanding health information?: Often current occupation: retired Pets and animals: No What is your relationship status?: How often do you talk on the phone with friends or family?: twice per week How often do you get together with friends or relatives?: twice per week Panel score (0-1 are the most socially isolated patients): 2 What type of physical activity do you participate in: walking, bicycling and occasional exercise Special jada needs: No Agree to transfusion: Yes Seatbelt use: always Drive intox or ride w/intox medical driver: No Working smoke detector in home: Yes Fire extinguisher in home: Yes Do you feel safe at home: Yes Additional Social history: he and his live very separate lives each has own floor in the home; Cosmo lives in basement not close; have been in counseling previously; daughter is DPOA Exam Narrative Exam Narrative: Sitting up in the hospital stretcher. Wounds are approximated over the left elbow and the left wrist. Ecchymosis is present. No signs of infection. He is unable to make a fist on either side. He reports dense numbness throughout the entire hand. He has weak shoulder abduction bilaterally. He has very weak finger abduction as well as finger flexion extension. Negative [place]. Negative clonus. Results Last Vital Signs Temp 36.6 C 10/05/19 17:30 Pulse 58 L 10/05/19 17:30 Resp 14 10/05/19 17:30 BP 102/70 10/05/19 17:30 Pulse Ox 98 10/05/19 17:30 Labs Result diagrams: 10/05/19 12:15 10/05/19 12:15 Labs: Laboratory Results - last 24 hr 10/05/19 10/05/19 10/05/19 12:15 12:15 12:15 WBC 5.56 RBC 4.51 Hgb 13.9 Hct 42.8 MCV 94.9 MCH 30.8 MCHC 32.5 RDW 14.8 H Plt Count 180 MPV 9.2 Immature Gran % 0.2 Neutrophils % 67.1 Lymphocytes % 19.4 Monocytes % 9.9 Eosinophils % 2.9 Basophils % 0.5 Absolute Neutrophils 3.73 Absolute Lymphocytes 1.08 L Absolute Monocytes 0.55 Absolute Eosinophils 0.16 Absolute Basophils 0.03 Sodium 141 Potassium 4.7 Chloride 106 Carbon Dioxide 31.2 Anion Gap 3.8 BUN 28 H Creatinine 0.75 Estimated GFR/1.73 m2 >= 60.00 Glucose 100 Lactate 0.8 Calcium 8.9 Magnesium 1.8 Total Bilirubin 0.6 AST 26 ALT 36 Alkaline Phosphatase 53 Troponin I Total Protein 6.5 Albumin 3.2 L Vitamin B12 TSH 0.44 Urine Color Urine Clarity Urine pH Ur Specific [place] Urine Protein Urine Ketones Urine Blood Urine Nitrite Urine Bilirubin Urine Urobilinogen Ur Leukocyte Esterase Urine RBC Urine WBC Ur Epithelial Cells Urine Crystals Urine Bacteria Urine Casts Urine Mucus Ur Culture Indicated? Urine Glucose 10/05/19 10/05/19 10/05/19 12:15 12:15 15:00 WBC RBC Hgb Hct MCV MCH MCHC RDW Plt Count MPV Immature Gran % Neutrophils % Lymphocytes % Monocytes % Eosinophils % Basophils % Absolute Neutrophils Absolute Lymphocytes Absolute Monocytes Absolute Eosinophils Absolute Basophils Sodium Potassium Chloride Carbon Dioxide Anion Gap BUN Creatinine Estimated GFR/1.73 m2 Glucose Lactate Calcium Magnesium Total Bilirubin AST ALT Alkaline Phosphatase Troponin I < 0.05 Total Protein Albumin Vitamin B12 896 TSH Urine Color Yellow Urine Clarity Sl cloudy Urine pH 5.5 Ur Specific [place] 1.020 Urine Protein Negative Urine Ketones Negative Urine Blood Trace-intact H Urine Nitrite Negative Urine Bilirubin Negative Urine Urobilinogen 0.2 Ur Leukocyte Esterase Moderate H Urine RBC 0-2 Urine WBC 10-20 H Ur Epithelial Cells Few Urine Crystals Negative Urine Bacteria Moderate Urine Casts Negative Urine Mucus Negative Ur Culture Indicated? Yes Urine Glucose Negative 10/05/19 15:18 WBC RBC Hgb Hct MCV MCH MCHC RDW Plt Count MPV Immature Gran % Neutrophils % Lymphocytes % Monocytes % Eosinophils % Basophils % Absolute Neutrophils Absolute Lymphocytes Absolute Monocytes Absolute Eosinophils Absolute Basophils Sodium Potassium Chloride Carbon Dioxide Anion Gap BUN Creatinine Estimated GFR/1.73 m2 Glucose Lactate Calcium Magnesium Total Bilirubin AST ALT Alkaline Phosphatase Troponin I < 0.05 Total Protein Albumin Vitamin B12 TSH Urine Color Urine Clarity Urine pH Ur Specific [place] Urine Protein Urine Ketones Urine Blood Urine Nitrite Urine Bilirubin Urine Urobilinogen Ur Leukocyte Esterase Urine RBC Urine WBC Ur Epithelial Cells Urine Crystals Urine Bacteria Urine Casts Urine Mucus Ur Culture Indicated? Urine Glucose Imaging Imaging Studies: MRI of the cervical spine was performed and demonstrates cervical stenosis at the C3-4 level with both posterior and anterior impingement onto the thecal sac with no surrounding cerebrospinal fluid. There is also myelomalacia seen within the cord extending through the entirety of the cord behind the C3 body.
[2019-10-05] MEDS: Normal Saline 1,000 ML 150 ML IV (18:15)
--- NOTE | 2019-10-05 18:17 | NUR.NOTE ---
Nursing Note: PT care transferred to [facility]. At the time of transfer the PT is alert and oriented, vitals stable.
== END 2019-10-05 18:18 ==
PROVIDERS: Emergency Provider Student in an Organized Health Care Education/Training Program; PCP Nurse Practitioner Adult Health
DX: G95.29 Other cord compression (principal); M62.81 Muscle weakness (generalized); R20.0 Anesthesia of skin; I10 Essential (primary) hypertension; Z87.440 Personal history of urinary (tract) infections; M48.02 Spinal stenosis, cervical region
CPT/HCPCS: 36410; 80053; 87040; 87077; 93005; 99285; 72141; 81003; 81015; 82607; 83605; 83735; 84443; 84484; 85025; 87086; 87186; 93010

== ENCOUNTER 2019-11-03 21:24 | Outpatient (REF) | payer OTHER, SELFPAY | END 2019-11-03 21:44 | LOC: LBN 21:24 | PROVIDERS: PCP Nurse Practitioner Adult Health; Visit Provider Urology | DX: R33.9 Retention of urine, unspecified (principal); R82.998 Other abnormal findings in urine | CPT/HCPCS: 87077; 87086; 87186 ==

== ENCOUNTER → 2019-11-17 08:13 | Outpatient (BNVA) | payer OTHER, SELFPAY | PROVIDERS: PCP Nurse Practitioner Adult Health; Referring Provider Nurse Practitioner Adult Health; Visit Provider Nurse Practitioner Gerontology | DX: R33.8 Other retention of urine (principal); Z46.6 Encounter for fitting and adjustment of urinary device; I10 Essential (primary) hypertension | CPT/HCPCS: 99213 ==

== ENCOUNTER → 2019-11-24 15:02 | Outpatient (REF) | payer OTHER, SELFPAY | LOC: LBN 15:02 | PROVIDERS: PCP Nurse Practitioner Adult Health; Visit Provider Urology | DX: R33.9 Retention of urine, unspecified (principal) | CPT/HCPCS: 87077; 87086; 87186 ==

== ENCOUNTER 2019-12-01 14:28 | Emergency (ER) | payer OTHER, SELFPAY ==
[2019-12-01 14:35] VITALS: BP 128/97; PULSE 93; RESP 18; TEMP 36.7; O2SAT 98
--- NOTE | 2019-12-01 14:49 | ED.GENADUL_ITS ---
Discharge Plan Disposition Patient Disposition: HOME Condition: Good Discharge Details Clinical Impression: Acute diarrhea Primary Care Provider: Sandy Zepeda ED Provider: Romina Xiao Home Meds and New Rx's Prescriptions: Continued Pradaxa 150 mg capsule 150 mg PO BID Qty: 60 RF: 0 tamsulosin 0.4 mg capsule 0.4 mg PO DAILY Qty: 90 RF: 4 pramipexole 1 MG tablet 2 mg PO HS RF: 0 furosemide 40 MG tablet 1 tab PO DAILY RF: 0 finasteride 5 mg Tablet 5 mg PO DAILY RF: 0 escitalopram oxalate 5 mg Tablet 5 mg PO DAILY RF: 0 cyanocobalamin (vitamin B-12) 1,000 mcg Tablet 1,000 mcg PO DAILY RF: 0 acetaminophen 500 mg tablet 500 mg PO Q6H PRN PRN (Reason: pain) Qty: 60 RF: 3 ibuprofen 600 mg tablet 600 mg PO TID PRNQty: 90 RF: 3 Discharge Instructions Instructions: Acute Diarrhea (ED) Additional Instructions: Please continue to encourage water intake. As was discussed by Dr. Hill, your IV antibiotics are going to be stopped at this time. I would like for you to collect a stool sample and bring this in for further testing. In particular, we are concerned about a potential C. difficile infection that may be the cause of your diarrhea. We will contact you with any positive results. Please follow-up with your primary care in 1 week for reevaluation. If he develop fever/chills, abdominal pain, inability stay hydrated, no blood in the stool or the new/worsening symptoms please seek care urgently once again. Referrals: Sandy Zepeda [Primary Care Provider] - Tito Hill MD [ [facility] STAFF PHYSICIAN] - Discharge Data Discharge Date/Time-TO BE ENTERED AT DEPARTURE: 12/01/19 16:45 Medical Decision Making <Lisa Do - Last Filed: 12/05/19 16:58> 1602: Dr. Hill here for eval, Invance 1 gm IVPB has been being given in Infusion clinic. Care to be handed off to oncoming provider ABRAHAM Marin pending disposition. <ABRAHAM Contreras - Last Filed: 12/01/19 16:36> Care transitioned to myself from Ute Do NP with stool sample including pending. In brief, the patient came in today with chief complaint of diarrhea. Patient is currently on IV antibiotics receiving imipenem daily for UTI. Patient self caths. Patient is being followed by Dr. Hill. At this time I assume care, labs did come back fairly unremarkable. Patient had received [address] Hill is at bedside and advises that based on the labs and urinalysis today, the IV antibiotics can be stopped. Patient appears nontoxic. He has been hydrating orally. He denies any blood in stool. Patient did have a bowel movement just prior to transition of care and does not feel that he is able to give a stool sample now. We will send him home with stool sampling kit. He does live locally and is able to return to some time fashion. Return precautions were discussed. Encourage close follow-up with primary care as well as Dr. Hill. All his questions and concerns were addressed and he is in agreement this plan. HPI <Lisa Do - Last Filed: 12/05/19 16:58> General Mode of arrival: ambulatory . Date/Time Provider Initiated Documentation: 12/01/19 14:31 . Limitations to Documentation: no limitations . Information obtained by: patient . HPI Narrative: 69-year-old male presents to the ED with chief complaint of diarrhea. This is been ongoing for the last week. He is currently taking cephalexin for UTI exam. He does have an indwelling Vicente catheter. He denies any abdominal pain, fever or any other concerns. He does have a history of recurrent UTI, restless leg syndrome, cellulitis, obstructive sleep apnea, myocardial ischemia, atrial fibrillation, BPH. Related Data Home Medications Medication Instructions Recorded Confirmed pramipexole 2 mg PO HS 08/04/12 12/01/19 furosemide 1 tab PO DAILY 09/16/15 12/01/19 tamsulosin 0.4 mg capsule 0.4 mg PO DAILY #90 cap 08/18/18 12/01/19 finasteride 5 mg PO DAILY 03/24/19 12/01/19 escitalopram oxalate 5 mg PO DAILY 08/03/19 12/01/19 dabigatran etexilate 150 mg capsule 150 mg PO BID #60 cap 09/18/19 12/01/19 cyanocobalamin (vitamin B-12) 1,000 mcg PO DAILY 09/28/19 12/01/19 acetaminophen 500 mg PO Q6H PRN PRN #60 tab 09/29/19 12/01/19 ibuprofen 600 mg PO TID PRN #90 tab 09/29/19 12/01/19 Previous Rx's Medication Instructions Recorded tamsulosin 0.4 mg capsule 0.4 mg PO DAILY #90 cap 08/18/18 dabigatran etexilate 150 mg capsule 150 mg PO BID #60 cap 09/18/19 acetaminophen 500 mg PO Q6H PRN PRN #60 tab 09/29/19 ibuprofen 600 mg PO TID PRN #90 tab 09/29/19 Allergies Allergy/AdvReac Type Severity Reaction Status Date / Time cephalexin monohydrate Allergy Intermediate Skin Rash Unverified 12/01/19 14:40 [From Keflex] aspirin [From Percodan] Allergy Verified 12/01/19 14:40 hydrocodone AdvReac Severe Psychosis Unverified 12/01/19 14:40 oxycodone [Oxycodone] AdvReac Intermediate Psychosis Unverified 12/01/19 14:40 General Stated Complaint: Urinary ROSCOE: 3 Review of Systems <Lisa Do - Last Filed: 12/05/19 16:58> Narrative: Constitutional: Negative for weight loss, alert and oriented, well groomed, normal body habitus, appears comfortable. HEENT: Denies trauma, headaches, blurry vision, nasal discharge, sore throat, trouble swallowing. Chest: Denies chest pain, palpitations, irregular rhythm, hypertension. Respiratory: Denies Shortness of breath, cough, hemoptysis. GI: Denies abdominal pain, nausea, vomiting,constipation. Positive diarrhea. : Denies dysuria, hematuria, flank pain, rectal bleeding. Neuro: Denies dizziness, blurry vision, weakness, syncope, headache or facial numbness. Hematologic: Denies easy bruising, intolerance to heat or cold, hair loss. PFSH <Lisa Do - Last Filed: 12/05/19 16:58> Medical History BPH (benign prostatic hyperplasia) BPPV (benign paroxysmal positional vertigo) Chewing tobacco nicotine dependence Chronic atrial fibrillation F/U with cardiology at [place] Chronic gout Cognitive deficit as late effect of traumatic brain injury Depression with anxiety Hyperlipidemia Hypertension Incomplete emptying of bladder had a vicente present shelter current use of anticoagulant Marijuana use, continuous Marital conflict Memory deficits Morbid obesity with BMI of 45.0-49.9, adult Myocardial ischemia Per pt. 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 Daughter No problems noted. Social History Smoking/Tobacco Use Status: Current every day Tobacco Type: smokeless tobacco Smokeless tobacco user: chewing tobacco Quit status: not considering quitting Alcohol Intake: former Drug use: Daily Substance use type: marijuana and tranquilizers Counseling given: Yes Counseling provided: provider counseling Details: chew last night @ 2200. Marijuana: t-2, bowl Caregiver/Support person: Yes Household members: spouse Housing: house Number of Children: 2 number of grandchildren: 3 Communication Needs: Corrective Lenses Education Level: high school Do you need help understanding health information?: Often current occupation: retired Pets and animals: No Current gender identity: male What is your relationship status?: How often do you talk on the phone with friends or family?: twice per week How often do you get together with friends or relatives?: twice per week Panel score (0-1 are the most socially isolated patients): 2 What type of physical activity do you participate in: walking, bicycling and occasional exercise Special jada needs: No Agree to transfusion: Yes Seatbelt use: always Drive intox or ride w/intox mechanic welder truck 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 Cosmo goes to [place]. [facility] in her yard or goes to [employer]. MANY years of marital discord, ever since he tired, Cosmo says. During the winter, each has own floor in the home; Cosmo lives in basement not close; have been in counseling previously; daughter is DPOA Cosmo would like to return to Tasha Wright MD as his PCP. No rapport with [place] PCP and finds it very difficult to get through to that office. Called Dayna Bertrand RN from [place] to ask for help with this transition. Exam <Lisa Do - Last Filed: 12/05/19 16:58> Narrative Exam Narrative: Constitutional: Alert and oriented x3. Appears stated age. Normal body habitus. Head: Normocephalic, no trauma. Eyes: Pupils PERRLA, Red reflex noted, EOM's intact. Eyelids symmetrical without lesions, discharge, or swelling. ENT: Bilateral TM's WNL, External ear normal to inspection, no mastoid TTP, swelling, or erythema, Nasal turbinates WNL, no nasal discharge. Normal dentition, Posterior pharynx WNL, no exudate. Chest: RRR, Normal S1, S2, distal pulses intact. Resp: Lungs clear to auscultation bilaterally, no wheezes, rales, or rhonchi. Abdomen: Hyperactive bowel sounds all 4 quadrants, soft, nontender to palpation. Musculoskeletal: Normal gait, 5/5 strength to all four extremities. Does have 2+ pitting edema to bilateral lower extremities. Skin: No suspicious rashes or lesions. Capillary refill less than 2 sec. Neurologic: Cranial nerves II-XII intact. Alert and oriented x 3. DTR's intact. Hematologic/Lymphatic: No ecchymosis, no lymphadenopathy. Course <Lisa Do - Last Filed: 12/05/19 16:58> Vital Signs Vital signs: Vital Signs Temperature 36.7 C 12/01/19 14:35 Pulse 93 H 12/01/19 14:35 Respiratory Rate 18 12/01/19 14:35 Blood Pressure 128/97 H 12/01/19 14:35 Pulse Oximetry 98 12/01/19 14:35 Temperature 36.7 C 12/01/19 14:35 Pulse 93 H 12/01/19 14:35 Respiratory Rate 18 12/01/19 14:35 Respiratory Effort 12/01/19 14:38 Blood Pressure 128/97 H 12/01/19 14:35 Blood Pressure Position Sitting 12/01/19 14:35 Pulse Oximetry 98 12/01/19 14:35 Oxygen Delivery Method Room Air 12/01/19 14:35 Oxygen Flow Rate 0 12/01/19 14:35 Pain Level 0 12/01/19 14:35 Sign Out <Lisa Do - Last Filed: 12/05/19 16:58> Sign Out Data: Sign Out Comment: Pending Stool sample and discharge Last updated by Lisa Do at 12/01/19 16:00
[2019-12-01] MEDS: Normal Saline 1,000 ML 1000 ML IV (15:00)
[2019-12-01 15:06] LABS: Abs Immature Grans 0.02 10^3/uL (0.0-0.06); Absolute Basophil Count 0.04 10^3/uL (0.0-0.2); Absolute Eosinophil Count 0.15 10^3/uL (0.0-0.7); Absolute Monocyte Count 0.51 10^3/uL (0.1-0.8); Absolute Neutrophil Count 4.19 10^3/uL (1.2-6.7); Basophils % 0.6; Eosinophils % 2.4; HCT 44.3 % (40.0-50.0); HGB 14.3 g/dL (13.5-17.5); Immature Grans % 0.3; Lymphocytes % 20.9; MCH 30.5 pg (27.0-33.0); MCHC 32.3 % (32.0-36.0); MCV 94.5 fL (80-95); MPV 8.6 fL (8.0-11.0); Monocytes % 8.2; Neutrophils % 67.6; Nucleated RBC 0 %; Platelet Count 239 10^3/uL (130-400); RBC 4.69 10^6/uL (4.36-5.78); RDW 14.5 % (11.8-14.1); RDW-SD 50.1 fL; WBC 6.21 10^3/uL (4.4-10.8)
[2019-12-01] MEDS: Normal Saline Flush 10 ML SYR IVP (15:16)
[2019-12-01 15:21] LABS: ALT 31 U/L (16-63); AST 27 U/L (15-37); Albumin 3.5 g/dL (3.4-5.0); Alkaline Phosphatase 81 U/L (46-116); Anion Gap 6.1 mmol/L (3-11); BUN 21 mg/dL (7-18); Bilirubin, Total 0.4 mg/dL (0.2-1.0); CO2 28.9 mmol/L (21.0-32.0); Calcium 9.2 mg/dL (8.5-10.1); Chloride 105 mmol/L (98-107); Glucose 94 mg/dL (74-106); Potassium 4.3 mmol/L (3.5-5.1); Sodium 140 mmol/L (136-145); Total Protein 7.2 g/dL (6.4-8.2)
[2019-12-01 15:53] LABS: Bilirubin Negative (Negative); Blood Negative (Negative); Clarity Clear (Clear); Glucose Negative (Negative); Ketones Negative (Negative); Leukocyte Esterase Negative (Negative); Nitrite Negative (Negative); Urobilinogen 0.2 EU/dL (Up TO 0.2); pH 5.5 (5-8)
[2019-12-01 16:33] VITALS: BP 120/83; PULSE 62; RESP 17; TEMP 37; O2SAT 96
[2019-12-01 16:52] VITALS: BP 120/83; PULSE 62; RESP 17; TEMP 37; O2SAT 96
[2019-12-01 17:47] LABS: C Diff PCR Negative (Negative)
[2019-12-07 11:06] LABS: Misc Referral (VDH) See Comments
== END 2019-12-01 16:45 | disposition home or self-care (01) ==
PROVIDERS: Registered Nurse Emergency; Emergency Provider Physician Assistant; PCP Nurse Practitioner Adult Health
DX: R19.7 Diarrhea, unspecified (principal); T36.0X5A Adverse effect of penicillins, initial encounter; R19.5 Other fecal abnormalities; Z96.0 Presence of urogenital implants; I10 Essential (primary) hypertension
CPT/HCPCS: 36415; 80053; 87493; 87505; 96360; 99284; 81003; 82270; 83630; 83735; 85025; 99283

== ENCOUNTER 2019-12-02 01:51 | Outpatient (RCR) | payer OTHER, SELFPAY ==
[2019-11-27] MEDS: Normal Saline Flush 10 ML SYR IVP (13:39)
[2019-11-28] MEDS: Normal Saline Flush 10 ML SYR IVP (13:23)
[2019-11-29] MEDS: Normal Saline Flush 10 ML SYR IVP (13:14)
[2019-11-30] MEDS: Normal Saline Flush 10 ML SYR IVP (14:04)
[2019-12-01] MEDS: Normal Saline Flush 10 ML SYR IVP (13:27)
== END 2019-12-19 23:59 | disposition home or self-care (01) ==
LOC: INF 01:51
PROVIDERS: PCP Nurse Practitioner Adult Health; Visit Provider Urology
DX: N39.0 Urinary tract infection, site not specified (principal); B96.20 Unspecified Escherichia coli [E. coli] as the cause of diseases classified elsewhere; Z87.440 Personal history of urinary (tract) infections
CPT/HCPCS: 96365; 99195; J1335

== ENCOUNTER → 2019-12-14 16:45 | Outpatient (REF) | payer OTHER, SELFPAY | LOC: LBN 16:45 | PROVIDERS: PCP Nurse Practitioner Adult Health; Visit Provider Urology | DX: N39.0 Urinary tract infection, site not specified (principal) | CPT/HCPCS: 87077; 87086; 87186 ==

== ENCOUNTER → 2019-12-29 14:49 | Outpatient (REF) | payer OTHER, SELFPAY ==
[2019-12-29 15:16] LABS: Bilirubin Negative (Negative); Blood Small (Negative); Clarity Sl Cloudy (Clear); Glucose Negative (Negative); Ketones Negative (Negative); Leukocyte Esterase Small (Negative); Nitrite Positive (Negative); Specific Gravity 1.015 (1.005-1.025); Urobilinogen 0.2 EU/dL (Up TO 0.2)
[2019-12-29 15:25] LABS: Epithelial Cells Rare HPF (Negative); WBC >50 HPF (0-5)
[2019-12-29 15:26] LABS: Bacteria Many HPF (Negative); C & S Indicated? C&S Done As Ordered; Casts Negative LPF (Negative); Crystals Negative HPF (Negative); Mucus Negative (Negative); Other Cells Few Transitional (Negative)
== END ==
LOC: LBN 14:49
PROVIDERS: PCP Nurse Practitioner Adult Health; Visit Provider Urology
DX: N39.0 Urinary tract infection, site not specified (principal); R33.9 Retention of urine, unspecified
CPT/HCPCS: 87077; 81003; 81015; 87086; 87186

== ENCOUNTER → 2020-01-12 15:54 | Outpatient (BNVA) | payer OTHER, SELFPAY | PROVIDERS: PCP Nurse Practitioner Adult Health; Referring Provider Nurse Practitioner Adult Health; Visit Provider Urology | DX: R15.9 Full incontinence of feces (principal); R33.8 Other retention of urine; N39.0 Urinary tract infection, site not specified; N17.9 Acute kidney failure, unspecified; R29.898 Other symptoms and signs involving the musculoskeletal system | CPT/HCPCS: 99214; 99443 ==

== ENCOUNTER → 2020-01-13 10:43 | Outpatient (CLI) | payer OTHER, SELFPAY ==
--- NOTE | 2020-01-13 12:45 | DI.MRI_ITS ---
EXAM: MR LUMBAR SPINE WO CLINICAL HISTORY: r/o disc herniation LEG WEAKNESS, R29.898, R33.9 RETENTION OF URINE. TECHNIQUE: Multiplanar multisequence MRI was performed. COMPARISON: CR XR LUMBAR SPINE COMPLETE from 08/17/2019. This set of plain films reveals it rudimen tary 12th ribs and an element of sacralization of the L5 segment. FINDINGS: Position of the conus medullaris is at T12-L1. There is no evidence of conus mass nor subjacent clum ping of the intrathecal nerve roots to suggest arachnoiditis. However, as described below below ther e are are mild there is multilevel severe spinal canal stenosis causing compression of the cauda equi na. There is no evidence of compression fracture or listhesis. No ominous osseous lesions. With re spect to the individual levels; T12-L1: Show nonacute Schmorl's nodes. No significant disc herniation. No central canal stenosis. No foraminal stenosis. No facet arthropathy. L1-2: Mild decreased disc height.. No significant disc herniation or central canal stenosis. No for aminal stenosis. No significant facet arthropathy. L2-3: Mild decreased disc height. Broad annular bulging. Severe spinal canal stenosis due to short AP dimensions the pedicles and broad annular bulging. Mild degenerative changes in the facet joints. Bulging annulus extends into the floor both exiting neural foramina but without prominent foraminal stenosis on either side. L3-4: Mild decreased disc height. Also severe central spinal canal stenosis at this level due to a c ombination of annular bulging and posterior bony ridging and short AP dimensions of the pedicles. Mi ld degenerative changes in the facet joints. No prominent foraminal stenosis although there is mild- 6 frontal stenosis on the on the right side. L4-5: Preserved disc height and signal. Broad symmetrical annular bulging which extends into the exi ting neural foramina bilaterally. Severe central spinal canal stenosis. There is also an element of mild-moderate bilateral foraminal stenosis. Moderate degenerative facet joint arthropathy. L5-S1 preserved disc height and signal, this most probably related to the cyst partial sacralization. No disc herniation. Central canal dimensions are within normal limits. Moderate degenerative day ges in the left facet joint. Right facet joint mild degenerative changes. There is mild foraminal s tenosis on the right side. There is no foraminal stenosis on the left side. This discrepancy is rel ated to asymmetric disc height loss on the right side. Sacral canal: Distal thecal sac is at the upper S2 level. No evidence of Tarlov intra sacral sys nor other significant findings within the sacral canal. IMPRESSION: Multilevel advanced spondylitic changes with severe multilevel spinal canal stenosis as described abo ve and resulting in significant compression of the cauda equina at these levels.. Mild multilevel as ymmetric foraminal stenosis. No severe foraminal stenosis. No listhesis. DATA REPOSITORY:
--- NOTE | 2020-01-13 16:32 | DI.VRAD_ITS ---
Addendum created by Nirmal Ron MD on 01/13/2020 5:48:49 PM EST: THIS REPORT CONTAINS FINDINGS THAT MAY BE CRITICAL TO PATIENT CARE. The findings were verbally communicated via telephone conference with Dr. Soliman at 5:48 PM EST on 01/13/2020. The findings were acknowledged and understood. Initial report created on 01/13/2020 4:32:06 PM EST: PROCEDURE INFORMATION: Exam: MR Lumbar Spine Without Contrast. Exam date and time: 01/13/2020 3:54 PM Age: 69 years old Clinical indication: Patient HX: Leg weakness, retention of urine TECHNIQUE: Imaging protocol: Multiplanar magnetic resonance images of the lumbar spine without intravenous contrast. COMPARISON: CR XR LUMBAR SPINE COMPLETE 08/17/2019 12:10 PM FINDINGS: Lumbar vertebral body heights are maintained. Mild Modic type 1 edematous degenerative endplate change at L5-S1. No evidence of acute lumbar spine fracture. No cord compression. No abnormal cord signal. Conus medullaris terminates at the L1 level. Paravertebral soft tissues are unremarkable. L1-L2: No significant canal or foraminal narrowing. L2-L3: Broad-based disc bulge and facet hypertrophy cause severe canal narrowing with compression of the cauda equina. Mild to moderate bilateral foraminal narrowing. L3-L4: Broad-based disc bulge and facet hypertrophy cause severe canal narrowing with compression of the cauda equina. Moderate left and severe right foraminal narrowing. L4-L5: Broad-based disc bulge and facet hypertrophy cause moderate to severe canal narrowing with crowding of the cauda equina. Severe bilateral foraminal narrowing. L5-S1: Facet hypertrophy causes moderate bilateral foraminal narrowing. No significant canal narrowing. 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 Given provided history of retention of urine, findings are concerning for cauda equina syndrome. Recommend emergent neurosurgery consultation. Dictated and Authenticated by: Nirmal Ron MD. Ordering:BRUCE Francis MD
== END ==
PROVIDERS: PCP Family Medicine; Visit Provider Urology
DX: M48.061 Spinal stenosis, lumbar region without neurogenic claudication (principal); R33.9 Retention of urine, unspecified; M51.45 Schmorl's nodes, thoracolumbar region; R29.898 Other symptoms and signs involving the musculoskeletal system
CPT/HCPCS: 72148

== ENCOUNTER 2020-01-13 17:34 | Emergency (ER) | payer OTHER, SELFPAY ==
[2020-01-13] VITALS (20 sets, daily range): BP systolic 111–125; BP diastolic 63–83; PULSE 68–99; RESP 18–27; TEMP 36.5; O2SAT 95–98
--- NOTE | 2020-01-13 17:37 | W.ED.GENAD ---
Discharge Plan Disposition Patient Disposition: [facility] Condition: Serious Discharge Details Chief Complaint: Nausea/Vomit/Diar Clinical Impression: Cauda equina syndrome, UTI (urinary tract infection), Acute urinary retention, Acute kidney injury Primary Care Provider: Tasha Wright ED Provider: Romina Xiao Home Meds and New Rx's Prescriptions: No Action Pradaxa 150 mg capsule 150 mg PO BID Qty: 60 RF: 0 tamsulosin 0.4 mg capsule 0.4 mg PO DAILY Qty: 90 RF: 4 pramipexole 1 MG tablet 2 mg PO HS RF: 0 furosemide 40 MG tablet 1 tab PO DAILY RF: 0 finasteride 5 mg Tablet 5 mg PO DAILY RF: 0 escitalopram oxalate 5 mg Tablet 5 mg PO DAILY RF: 0 cyanocobalamin (vitamin B-12) 1,000 mcg Tablet 1,000 mcg PO DAILY RF: 0 Medical Decision Making Patient is a pleasant 69-year-old male presenting today with chief complaint of cauda equina. Patient was seen as an outpatient yesterday with concerning symptoms. Outpatient MRI was ordered today. MRI was reviewed by radiology and there was concern for cauda equina. Please see MRI report as below. Patient states that throughout this year has had waxing waning symptoms. Subsequent symptoms largely resolved after cervical spine surgery in August. However, over the past 3 weeks he has noted increased weakness in his lower extremities and then began having more urinary retention with some dribbling as well stool incontinence x3 days. He denies any fevers or chills. Denies any back pain. Denies any rash. No neck pain. He does not have any upper extremity complaints. He feels like his balance has been off. States that he has noted a change in his ambulation. He has not started falling but he states that when he had similar symptoms this past summer prior to his cervical spine surgery, he did fall multiple times. On exam, patient is resting comfortably. He did ambulate into the department with a somewhat wide gait. However, I difficult to know if this is baseline for the patient. I do not appreciate any weakness in his lower extremities. His reflexes are equal bilaterally with no deficits noted. She has no saddle paresthesias. Rectal tone is intact. Abdomen is nontender. No midline spinal tenderness. FINDINGS: Lumbar vertebral body heights are maintained. Mild Modic type 1 edematous degenerative endplate change at L5-S1. No evidence of acute lumbar spine fracture. No cord compression. No abnormal cord signal. Conus medullaris terminates at the L1 level. Paravertebral soft tissues are unremarkable. L1-L2: No significant canal or foraminal narrowing. L2-L3: Broad-based disc bulge and facet hypertrophy cause severe canal narrowing with compression of the cauda equina. Mild to moderate bilateral foraminal narrowing. L3-L4: Broad-based disc bulge and facet hypertrophy cause severe canal narrowing with compression of the cauda equina. Moderate left and severe right foraminal narrowing. L4-L5: Broad-based disc bulge and facet hypertrophy cause moderate to severe canal narrowing with crowding of the cauda equina. Severe bilateral foraminal narrowing. L5-S1: Facet hypertrophy causes moderate bilateral foraminal narrowing. No significant canal narrowing. 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 Given provided history of retention of urine, findings are concerning for cauda equina syndrome. Recommend emergent neurosurgery consultation. Just after patient's arrival, I contacted [facility], MRI was pushed to them for review by their neurosurgical team. Consulted with ortho spine at [facility] regarding patients history and imaging concerns. He is concerned that the patient's difficulty with ambulation that this could be associated with cervical issues. Could like to review the imaging and history with his attending. Patient had 600 cc postvoid residual. Catheter was placed patient had over a liter in his bladder. Labs are concerning for elevated creatinine at 1.44 which is new for the patient. He does appear to have a urinary tract infection with moderate leukocyte esterase and many bacteria. He has had multiple UTIs recently, likely associated with his urinary retention. Catheter is in place. Patient is allergic to cephalexin. I did review the recent micro report from previous UTI and it was consistent with gentamicin but resistant to majority of antibiotics. Plan to restart gentamicin. Ortho called back, they feel that he should be evaluated in their ED but may not need immediate surgical intervention. He reviewed images with his attending who was quesitoning if the findings on the MRI may be chronic. Dr. Parker in the ED will accept the patient. HPI General Mode of arrival: ambulatory. Date/Time Provider Initiated Documentation: 01/13/20 17:37. Limitations to Documentation: no limitations. Information obtained by: patient and RN notes reviewed. HPI Narrative: Patient is a pleasant 69-year-old gentleman presenting today with chief complaint of cauda equina. Patient was referred here after having outpatient MRI today which confirmed this diagnosis. Patient was evaluated by urology yesterday. During his visit yesterday, patient was endorsing urinary retention, change in sensation of a full bladder, loss of control of his bowels, lower extremity weakness. It sounds of the symptoms have waxed and waned. Patient reports that he initially has experienced the symptoms in June of this year and subsequently underwent a cervical spine surgery in August. He reports that the surgery was quite successful and his symptoms completely resolved. However, the symptoms then started up again over the past 3 weeks and the stool incontinence began approximately 3 days ago. She denies any new trauma. Denies any new back pain. Denies any fevers or chills. No pain radiating into his legs. Denies any abdominal pain. Has been treated multiple times for urinary tract infections. Related Data Home Medications Medication Instructions Recorded Confirmed pramipexole 2 mg PO HS 08/04/12 01/13/20 furosemide 1 tab PO DAILY 09/16/15 01/13/20 tamsulosin 0.4 mg capsule 0.4 mg PO DAILY #90 cap 08/18/18 01/13/20 finasteride 5 mg PO DAILY 03/24/19 01/13/20 escitalopram oxalate 5 mg PO DAILY 08/03/19 01/13/20 dabigatran etexilate 150 mg capsule 150 mg PO BID #60 cap 09/18/19 01/13/20 cyanocobalamin (vitamin B-12) 1,000 mcg PO DAILY 09/28/19 01/13/20 Previous Rx's Medication Instructions Recorded tamsulosin 0.4 mg capsule 0.4 mg PO DAILY #90 cap 08/18/18 dabigatran etexilate 150 mg capsule 150 mg PO BID #60 cap 09/18/19 Allergies Allergy/AdvReac Type Severity Reaction Status Date / Time cephalexin monohydrate Allergy Intermediate Skin Rash Unverified 01/13/20 17:53 [From Keflex] aspirin [From Percodan] Allergy Verified 01/13/20 17:53 hydrocodone AdvReac Severe Psychosis Unverified 01/13/20 17:53 ertapenem [From Invanz] AdvReac Intermediate severe gi Verified 01/13/20 17:53 upset oxycodone [Oxycodone] AdvReac Intermediate Psychosis Unverified 01/13/20 17:53 General ROSCOE: 3 Review of Systems Constitutional Constitutional: Reports as per HPI, Denies chills, Denies fatigue, Denies fever(s), Denies frequent falls, Denies headache(s) and Reports weakness Eyes Eyes: Denies change in vision ENT Ears, Nose, Mouth, and Throat: Denies headache(s) Cardiovascular Cardiovascular: Denies chest pain, Denies dyspnea and Denies dyspnea on exertion Respiratory Respiratory: Denies cough, Denies dyspnea and Denies dyspnea on exertion Gastrointestinal Gastrointestinal: Denies abdominal pain, Reports change in bowel habits and Reports fecal incontinence Genitourinary Genitourinary: Reports as per HPI, Reports urinary hesitancy and Reports urinary incontinence Musculoskeletal Musculoskeletal: Reports as per HPI, Reports back pain, Denies muscle weakness, Reports numbness, Denies radiating pain into limb, Reports stiffness and Denies tingling Integumentary/Breasts Skin/Breast: Reports as per HPI and Denies rash Neurologic Neurologic: Reports as per HPI, Denies frequent falls, Denies headache(s), Denies localized weakness, Reports numbness, Denies radicular pain, Reports sensory deficit, Denies tingling and Reports weakness Endocrine Endocrine: Denies fatigue [facility] Medical History BPH (benign prostatic hyperplasia) BPPV (benign paroxysmal positional vertigo) Chewing tobacco nicotine dependence Chronic atrial fibrillation F/U [facility]ology at [facility] Chronic gout Cognitive deficit as late effect of traumatic brain injury Depression with anxiety Hyperlipidemia Hypertension Incomplete emptying of bladder had a vicente present half-way current use of anticoagulant Marijuana use, continuous Marital conflict Memory deficits Morbid obesity with BMI of 45.0-49.9, adult Myocardial ischemia Per pt. 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 Daughter No problems noted. Social History Smoking/Tobacco Use Status: Current every day Tobacco Type: smokeless tobacco Smokeless tobacco user: chewing tobacco Quit status: not considering quitting Smoking risk assessment performed?: Yes Alcohol Intake: former Drug use: Daily Substance use type: marijuana and tranquilizers Counseling given: Yes Counseling provided: provider counseling Caregiver/Support person: Yes Household members: spouse Housing: house Number of Children: 2 number of grandchildren: 3 Communication Needs: Corrective Lenses Education Level: high school Do you need help understanding health information?: Often current occupation: retired Pets and animals: No Current gender identity: male What is your relationship status?: How often do you talk on the phone with friends or family?: twice per week How often do you get together with friends or relatives?: twice per week Panel score (0-1 are the most socially isolated patients): 2 What type of physical activity do you participate in: walking, bicycling and occasional exercise Special jada needs: No Agree to transfusion: Yes Seatbelt use: always Drive intox or ride w/intox truck driver's offsider: No Working smoke detector in home: Yes Fire extinguisher in home: Yes Do you feel safe at home: Yes Additional Social history: he and his live very separate lives; live apart every summer. Cosmo goes to [facility] [employer] [employer] in her yard or goes to [employer]. MANY years of marital discord, ever since he tired, Cosmo says. During the winter, each has own floor in the home; Cosmo lives in basement not close; have been in counseling previously; daughter is DPOA Cosmo would like to return to [facility] as [facility]. [facility] and finds it very difficult to get through to that office. Called Dayna Bertrand RN from [facility] to ask for help with this transition. Exam Const General: cooperative, healthy appearing, comfortable, no acute distress, well developed and well groomed Nutritional Appearance: well nourished and obese Orientation: alert and awake Eyes General: appearance normal, both eyes and all related structures Neck Neck: normal visual inspection, full ROM, no lymphadenopathy and no meningeal signs Resp Effort & Inspection: normal respiratory effort and able to speak in complete sentences Auscultation: clear to auscultation bilaterally, no rales, no rhonchi and no wheezes Cardio Rate: regular rate Rhythm: regular rhythm Heart Sounds: S1 normal and S2 normal GI Inspection: normal to inspection (large surgical scar) Palpation: not rigid and nontender Rectal Exam: visual inspection normal and normal sphincter tone Skin General skin exam: no rashes or lesions noted Neuro General: patient alert and patient awake Cognition: normal cognition Speech: speech normal Gait: normal gait Motor: muscle tone normal throughout, strength 5/5 throughout, no movement abnormalities noted and no fasciculations Sensory Exam: no sensory deficits noted (no saddle paresthesias) DTR's: Rt Patellar: 2+, Lt Patellar: 2+, Rt Ankle: 2+ and Lt Ankle: 2+ Extrem General: normal to inspection, full ROM, capillary refill normal, no joint enlargement, no pedal edema, no calf tenderness and normal gait Psych Appearance: grossly normal and well kempt Mental Status: mental status grossly normal Speech and Movement: speech and movement normal
--- NOTE | 2020-01-13 18:00 | RT.EKG_ITS ---
APPROVED REPORT Exam: Resting ECG Patient Location: E HR:80 bpm ECG Measurements Heart Rate 80 AXIS NC [id number] P [id number] QRSd 161 QRS -63 QT 416 T -8 QTc 481 Conclusion Atrial fibrillation...V-rate 63- 97, irreg A-activity RBBB and LAFB...QRSd >120mS, axis(-40,240) I have reviewed and interpreted ECG and agree with software generated interpretation.
[2020-01-13] MEDS: Normal Saline 1,000 ML 150 ML IV (18:22)
[2020-01-13 18:42] LABS: Abs Immature Grans 0.02 10^3/uL (0.0-0.06); Absolute Basophil Count 0.03 10^3/uL (0.0-0.2); Absolute Eosinophil Count 0.19 10^3/uL (0.0-0.7); Absolute Lymphocyte Count 1.57 10^3/uL (1.2-3.4); Absolute Monocyte Count 0.54 10^3/uL (0.1-0.8); Absolute Neutrophil Count 4.41 10^3/uL (1.2-6.7); Basophils % 0.4; Eosinophils % 2.8; HCT 50.4 % (40.0-50.0); HGB 16.6 g/dL (13.5-17.5); Immature Grans % 0.3; Lymphocytes % 23.2; MCH 30.2 pg (27.0-33.0); MCHC 32.9 % (32.0-36.0); MCV 91.6 fL (80-95); MPV 9.1 fL (8.0-11.0); Neutrophils % 65.3; Nucleated RBC 0 %; Platelet Count 234 10^3/uL (130-400); RDW 13.2 % (11.8-14.1); RDW-SD 44.9 fL; WBC 6.76 10^3/uL (4.4-10.8)
[2020-01-13 18:54] LABS: ALT 25 U/L (16-63); AST 18 U/L (15-37); Albumin 4.1 g/dL (3.4-5.0); Alkaline Phosphatase 94 U/L (46-116); Anion Gap 5.9 mmol/L (3-11); BUN 33 mg/dL (7-18); Bilirubin, Total 0.6 mg/dL (0.2-1.0); CO2 30.1 mmol/L (21.0-32.0); CREATININE 1.44 mg/dL (0.70-1.30); Calcium 9.3 mg/dL (8.5-10.1); Chloride 101 mmol/L (98-107); Glucose 104 mg/dL (74-106); Potassium 3.8 mmol/L (3.5-5.1); Sodium 137 mmol/L (136-145); Total Protein 8.2 g/dL (6.4-8.2)
[2020-01-13 18:58] LABS: Troponin I < 0.05 ng/mL (<0.06)
[2020-01-13 19:00] LABS: Bilirubin Negative (Negative); Blood Trace-intact (Negative); Clarity Cloudy (Clear); Glucose Negative (Negative); Ketones Negative (Negative); Leukocyte Esterase Moderate (Negative); Nitrite Negative (Negative); Specific Gravity 1.015 (1.005-1.025); Urobilinogen 0.2 EU/dL (Up TO 0.2); pH 5.5 (5-8)
[2020-01-13 19:11] LABS: Bacteria Many HPF (Negative); C & S Indicated? Yes; Casts Negative LPF (Negative); Crystals Negative HPF (Negative); Epithelial Cells Few HPF (Negative); Mucus Negative (Negative); RBC Negative HPF (0-2); WBC >50 HPF (0-5)
[2020-01-13] MEDS: Normal Saline 100 ML (20:55)
--- NOTE | 2020-01-18 09:32 | NUR.NOTE ---
Patient transferred to [facility] and [facility] prior to urine culture result. Report faxed to pcp Dr Wright.Nursing Note:
== END 2020-01-13 20:49 | disposition short-term general hospital (02) ==
PROVIDERS: Emergency Provider Physician Assistant; PCP Family Medicine
DX: G83.4 Cauda equina syndrome (principal); N17.9 Acute kidney failure, unspecified; N40.1 Benign prostatic hyperplasia with lower urinary tract symptoms; R33.8 Other retention of urine; N39.0 Urinary tract infection, site not specified; B96.20 Unspecified Escherichia coli [E. coli] as the cause of diseases classified elsewhere; I10 Essential (primary) hypertension; Z87.440 Personal history of urinary (tract) infections
CPT/HCPCS: 36415; 51702; 80053; 87077; 93005; 96361; 96365; 99285; 81003; 81015; 83735; 84484; 85025; 87086; 87186; 93010; J1580

== ENCOUNTER 2020-01-18 15:00 | Outpatient (RCR) | payer OTHER, SELFPAY ==
[2019-12-30] MEDS: GENTAMICIN 160 MG in Normal Saline 100 ML 208 MG IVPB (13:15)
[2019-12-30] MEDS: Normal Saline Flush 10 ML SYR IVP (13:16)
[2020-01-01] MEDS: Normal Saline Flush 10 ML SYR IVP (13:03)
[2020-01-01] MEDS: GENTAMICIN 160 MG in Normal Saline 100 ML 208 MG IVPB (13:03)
[2020-01-18] MEDS: GENTAMICIN 160 MG in Normal Saline 100 ML 208 MG IVPB (15:08)
[2020-01-18] MEDS: Normal Saline Flush 10 ML SYR IVP (15:08)
== END 2020-01-18 23:59 | disposition home or self-care (01) ==
LOC: INF 15:00
PROVIDERS: PCP Nurse Practitioner Adult Health; Visit Provider Urology
DX: N39.0 Urinary tract infection, site not specified (principal); B96.20 Unspecified Escherichia coli [E. coli] as the cause of diseases classified elsewhere; Z87.440 Personal history of urinary (tract) infections; Z79.2 Long term (current) use of antibiotics
CPT/HCPCS: 96365; J1580

== ENCOUNTER 2020-01-24 01:44 | Outpatient (RCR) | payer OTHER, SELFPAY ==
[2020-01-19] MEDS: Normal Saline Flush 10 ML SYR IVP (10:54)
[2020-01-19] MEDS: GENTAMICIN 160 MG in Normal Saline 100 ML 208 MG IVPB (10:54)
[2020-01-19 12:11] LABS: BUN 32 mg/dL (7-18); CREATININE 0.91 mg/dL (0.70-1.30)
[2020-01-20] MEDS: Normal Saline Flush 10 ML SYR IVP (10:33)
[2020-01-20] MEDS: GENTAMICIN 160 MG in Normal Saline 100 ML 208 MG IVPB (10:33)
[2020-01-21] MEDS: GENTAMICIN 160 MG in Normal Saline 100 ML 208 MG IVPB (09:45)
[2020-01-21] MEDS: Normal Saline Flush 10 ML SYR IVP (09:51)
[2020-01-22] MEDS: GENTAMICIN 160 MG in Normal Saline 100 ML 208 MG IVPB (12:17)
[2020-01-22] MEDS: Normal Saline Flush 10 ML SYR IVP (12:18)
[2020-01-23] MEDS: GENTAMICIN 160 MG in Normal Saline 100 ML 200 MG IVPB (11:06)
[2020-01-23] MEDS: Normal Saline Flush 10 ML SYR IVP (11:06)
[2020-01-24] MEDS: Normal Saline Flush 10 ML SYR IVP (10:51)
[2020-01-24] MEDS: GENTAMICIN 160 MG in Normal Saline 100 ML 200 MG IVPB (10:51)
== END 2020-02-18 23:59 | disposition home or self-care (01) ==
LOC: INF 01:44
PROVIDERS: PCP Family Medicine; Visit Provider Urology
DX: N39.0 Urinary tract infection, site not specified (principal); I10 Essential (primary) hypertension; R33.8 Other retention of urine; B96.20 Unspecified Escherichia coli [E. coli] as the cause of diseases classified elsewhere; Z87.440 Personal history of urinary (tract) infections; Z79.2 Long term (current) use of antibiotics; Z45.2 Encounter for adjustment and management of vascular access device
CPT/HCPCS: 36415; 36591; 84520; 96365; 99212; 99213; 82565; J1580

== ENCOUNTER → 2020-01-26 08:01 | Outpatient (BNVA) | payer OTHER, SELFPAY | PROVIDERS: PCP Family Medicine; Referring Provider Family Medicine; Visit Provider Psychiatry & Neurology Neurology | DX: M47.12 Other spondylosis with myelopathy, cervical region (principal); R41.3 Other amnesia; M25.511 Pain in right shoulder | CPT/HCPCS: 99213; 99443 ==

== ENCOUNTER → 2020-02-29 08:08 | Outpatient (BNVA) | payer OTHER, SELFPAY | PROVIDERS: PCP Family Medicine; Referring Provider Family Medicine; Visit Provider Student in an Organized Health Care Education/Training Program | DX: M47.12 Other spondylosis with myelopathy, cervical region (principal); M75.121 Complete rotator cuff tear or rupture of right shoulder, not specified as traumatic; M17.11 Unilateral primary osteoarthritis, right knee; M17.12 Unilateral primary osteoarthritis, left knee; M48.062 Spinal stenosis, lumbar region with neurogenic claudication; Z98.890 Other specified postprocedural states | CPT/HCPCS: 20610; 99215; G2212 ==

== ENCOUNTER 2020-03-08 00:36 | Outpatient (CLI) | payer OTHER, SELFPAY ==
--- NOTE | 2020-03-08 09:30 | DI.US_ITS ---
APPROVED REPORT EXAM: Comprehensive 2D, Doppler, and color-flow Echocardiogram Patient Location: Out-Patient Caustic Loader: Octavia Zavala RDCS (AE) Indications: Atrial Fibrillation, CHF Other Information Study Quality: Fair. Technically limited study due to body habitus. Conclusion Normal left ventricular wall thickness and chamber size. Estimated ejection fraction is 60 to 65%. Wall motion is normal The right ventricle is mildly dilated with normal systolic function The left atrium is mildly to moderately dilated. The right atrium is moderately dilated. Mild mitral annular calcification. Trace mitral regurgitation Mildly sclerotic trileaflet aortic valve without regurgitation or stenosis Normal tricuspid valve with moderate regurgitation. Estimated right ventricular systolic pressure is normal Normal pulmonic valve with trace regurgitation Mildly dilated ascending aorta Wall motion Left Ventricle The left ventricle is normal size. The left ventricular systolic function is normal. The left ventric ular ejection fraction is within the normal range. There is normal left ventricular wall thickness. T here is normal LV segmental wall motion. There is no ventricular septal defect visualized. LVEF is 60 -65%. Right Ventricle Right ventricle is mildly dilated. Right ventricular systolic function is grossly normal. The RVSP is 27.6 mmHg. Atria Left atrium is mild to moderately. Right atrium is moderately dilated. The interatrial septum is inta ct with no evidence for an atrial septal defect. Aortic Valve The Aortic valve is sclerotic. Aortic valve is trileaflet. There is no aortic valvular stenosis. No a ortic regurgitation is present. Mitral Valve Mild mitral annular calcification. No evidence of mitral valve stenosis. Trace mitral regurgitation. Tricuspid Valve The tricuspid valve is normal in structure. There is no tricuspid valve stenosis. Moderate tricuspid regurgitation. Pulmonic Valve The pulmonary valve is normal in structure. There is no pulmonic valvular stenosis. Trace pulmonic re gurgitation. Great Vessels The aortic root is normal in size. The ascending aorta is mildly dilated. IVC is normal in size and c ollapses >50% with inspiration. Pericardium There is no pericardial effusion. 2D Dimensions IVSD d PLAX 1.13 cm M: 0.6-1.2 LVPW d PLAX 1.19 cm M: 0.6 - 1.2 LVID d PLAX 5.62 cm M: 4.2 - 5.8 LVDs 3.65 cm M: 2.5 - 4.0 Ao Root d 3.21 cm M: 3.1 - 3.7 Ao Asc Diam d 3.63 cm M: 2.6 - 3.4 LV EF Ralphichhollacy 63.1 % FS 34.60 % M-Mode TAPSE 2.42 cm (M/F) >1.7 LV Diastology MV E' medial 0.092 (>0.07 m/s) E/A Ratio 3.7 LV E/e MED 10.00 (<14) MV E Vmax 0.92 (0.4-1.3 m/s) MV E' lateral 0.101 (>0.1 m/s) MV A Vmax 0.25 (0.4-1.3 m/s) LV E/e LAT 9.00 (<14) MV E/A Ratio 3.37 MV E/E' medial 10.01 MV E/E' lateral 9.04 Aortic Valve LVOT Area 4.01 cm2 AoV Area Vmax 1.92 cm2 LVOT Vmax 0.82 m/s AoV Area/ BSA (Vmax) 0.84 cm2/m2 LVOT Mean Chi. 0.54 m/s ASHKAN Mean Chi. 1.61 cm2 LVOT Peak Grad 2.7 mmHg ASHKAN Mean Chi. Index 0.70 cm2/m2 LVOT Mean Grad 1.3 mmHg LVOT VTI 0.135 m LVOT Diam s 2.25 cm AoV Vmax 1.71 m/s Velocity Ratio 0.47 AoV Mean Chi. 1.33 m/s AoV Peak Grad 11.7 mmHg LVOT SV 54.32 mL AoV Mean Grad 7.8 mmHg AoV VTI 0.343 m AoV Area VTI 1.59 cm2 AoV Area/ BSA (VTI) 0.69 cm/m2 Mitral Valve MV DT 181 (160-240 msec) MV PHT 52 msec MV Area PHT 4.19 cm2 Pulmonary Valve PV Vmax 0.99 (0.5-1.5 m/s) RVOT Peak Gr. 1.75 mmHg PV Peak Grad 4.0 mmHg RVOT Mean Gr. 0.80 mmHg PV Mean Grad 2.1 mmHg RVOT VTI 0.104 m PV VTI 0.134 m RVOT Vmax 0.66 m/s Tricuspid Valve TR Peak Grad 24.6 mmHg TR Vmax 2.48 m/s RA Pressure 3.00 mmHg RVSP (TR) 27.6 mmHg
== END 2020-03-08 00:56 ==
PROVIDERS: PCP Family Medicine; Visit Provider Family Medicine
DX: I07.1 Rheumatic tricuspid insufficiency (principal); R33.8 Other retention of urine; Z87.440 Personal history of urinary (tract) infections
CPT/HCPCS: 99214; 99215; 93306

== ENCOUNTER 2020-03-18 01:19 | Outpatient (CLI) | payer OTHER, SELFPAY ==
[2020-03-18 09:38] LABS: HCT 47.3 % (40.0-50.0); HGB 15.8 g/dL (13.5-17.5); MCH 29.8 pg (27.0-33.0); MCHC 33.4 % (32.0-36.0); MCV 89.1 fL (80-95); MPV 8.6 fL (8.0-11.0); Platelet Count 195 10^3/uL (130-400); RBC 5.31 10^6/uL (4.36-5.78); RDW 14.5 % (11.8-14.1); RDW-SD 47.5 fL; WBC 4.82 10^3/uL (4.4-10.8)
[2020-03-18 10:45] LABS: Anion Gap 6.8 mmol/L (3-11); BUN 26 mg/dL (7-18); CO2 28.2 mmol/L (21.0-32.0); CREATININE 0.9 mg/dL (0.70-1.30); Chloride 100 mmol/L (98-107); Glucose 101 mg/dL (74-106); Potassium 4.2 mmol/L (3.5-5.1); Sodium 135 mmol/L (136-145)
[2020-03-18 10:50] LABS: Calcium 9.4 mg/dL (8.5-10.1)
[2020-03-19 17:13] LABS: COVID-19 RT-PCR Result NEGATIVE (Negative)
== END 2020-03-18 01:39 ==
PROVIDERS: PCP Family Medicine; Visit Provider Student in an Organized Health Care Education/Training Program
DX: M25.561 Pain in right knee (principal); M17.11 Unilateral primary osteoarthritis, right knee; Z11.52 Encounter for screening for COVID-19; Z01.818 Encounter for other preprocedural examination; Z01.812 Encounter for preprocedural laboratory examination
CPT/HCPCS: 36415; 80048; 85027; U0003

== ENCOUNTER 2020-03-22 10:55 | Inpatient (IN) | payer OTHER, SELFPAY ==
--- NOTE | 2020-03-01 14:16 | PDOC.ANES ---
Date of service: 03/01/20 Time of Service: 14:16 Anesthesia Note Report Anesthesia Note: Review of patient as candidate for anesthesia requested by Dr. Chi for an upcoming right Total Knee Arthroplasty (TKA) and Left knee injection. The patient has a complicated neurological history with controlled chronic atrial fibrillation as well as Obstructive sleep apnea. I have reviewed Dr. Mack recent note and the patient's previous imaging and report for his lumbar and cervical spine. The patient is not a candidate for spinal anesthesia due to severe spinal stenosis from L2-L5 with moderate stenosis L5-S1. The patient could potentially receive an epidural, which could be discontinued postoperatively. The patient is a candidate for general anesthesia as well as an adductor canal, as is our normal practice for TKAs. Patient did receive a cardiac workup in 2012 with clinically silent chronic Afib, reported a coronary catheterization in 2001 at that time with clean coronaries. Echo in 2011 showed biatrial enlargement
--- NOTE | 2020-03-01 15:07 | ANES_ITS ---
Anesthesia Note Anesthesia Note: Review of patient as candidate for anesthesia requested by Dr. Chi for an upcoming right Total Knee Arthroplasty (TKA) and Left knee in jection. The patient has a complicated neurological history with controlled chronic atrial fibrillation as well as Obstructive sleep apnea. I have reviewed Dr. Mack recent note and the patient's previous imaging and report for his lumbar and cervical spine. The patient is not a candidate for spinal anesthesia due to severe spinal stenosis from L2-L5 with moderate stenosis L5- S1. The patient could potentially receive an epidural, which could be discontinued postoperatively. The patient is a candidate for general anesthesia as well as an adductor canal, as is our normal practice for TKAs. Patient did receive a cardiac workup in 2012 with clinically silent chronic Afib, reported a coronary catheterization in 2001 at that time with clean coronaries. Echo in 2011 showed biatrial enlargement and mild insufficiency throughout. [facility] [place] shows a more recent ECHO in 2014 with moderate to severe Tricuspid regurgitation. Per recommendation for moderate to severe regurgitation, which includes an ECHO within 12 months of surgical date, the patient should receive an ECHO prior to the scheduled TKA.
[2020-03-22] VITALS (7 sets, daily range): BP systolic 106–126; BP diastolic 58–88; PULSE 74–83; RESP 13–21; TEMP 36.5–36.7; O2SAT 92–98
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
[2020-03-22] MEDS: Lactated Ringers 1,000 ML 80 ML IV ×2 (11:57→21:17)
[2020-03-22] MEDS: Celecoxib 200 MG CAP 400 MG PO (12:02)
[2020-03-22] MEDS: Gabapentin 300 MG CAP PO ×2 (12:02→21:11)
[2020-03-22] MEDS: Acetaminophen 500 MG TAB 1000 MG PO ×2 (12:02→19:47)
[2020-03-22] MEDS: Bupivacaine 0.25% Pres-Free 30 ML VIAL ×2 (12:30→13:37)
[2020-03-22] MEDS: ceFAZolin 3,000 MG in Normal Saline 100 ML 200 MG IVPB (13:10)
[2020-03-22] MEDS: Normal Saline 20 ML VIAL (13:39)
[2020-03-22] MEDS: Ketorolac 30 MG/ML VIAL (13:39)
[2020-03-22] MEDS: methylPREDNISolone ACETATE 80 MG/ML VIAL (13:41)
--- NOTE | 2020-03-22 16:29 | PT.INIE ---
Date of service: 03/22/20 Time of Service: 16:29 PT Notes Visit Reasons: Right knee DJD; left knee DJD Physical Therapy Inpatient Initial Evaluation Date: 03/22/2020 Referring Doctor: ABRAHAM Church PT Orders: PT CONSULT: Status post Ortho surgery Precautions: Fall. Standard. WBAT on right LE. Patient Profile/Admitting Diagnosis: Jeff is a 69-year-old male on palliative care with unilateral osteoarthritis of the right knee and is status post right total knee arthroplasty on postoperative day 0. PMHX: Medical History (Updated 01/19/20 @ 19:34 by Lacey Rosales MD) BPH (benign prostatic hyperplasia) BPPV (benign paroxysmal positional vertigo) Cauda equina syndrome Cellulitis and abscess of lower leg (01/21/13) Chewing tobacco nicotine dependence Chronic atrial fibrillation F/U with cardiology at [place] Chronic gout Cognitive deficit as late effect of traumatic brain injury Depression with anxiety Hyperlipidemia Hypertension Incomplete emptying of bladder self caths Intentional weight loss custodial current use of anticoagulant Marijuana use, continuous Marital conflict Memory deficits Mental status change (01/21/13) Morbid obesity with BMI of 45.0-49.9, adult Myocardial ischemia Per pt. 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 Independent with all aspects of ADLs prior to surgery reports that she has not needed to use an assistive device for the past 4 months now. Is still working with an outpatient physical therapist in [place] for rehabilitation after spine surgery last year. He states that daughter will be fully involved with helping out as he recovers from this surgery. Equipment Owned/DME: To front wheeled walker is Subjective: Agreeable to PT consult. States that he does not want to hurry his going home. Wants to make sure that he stays on top of the pain especially when he goes home. Looking forward to doing more physical therapy tomorrow morning. Denies headache, chest pain, and dizziness throughout session. Reports no numbness or tingling in bilateral lower extremities. Objective: General Observation: Obese. Supine in bed. IV in left UE. Cryocuff on right knee. SEBASTIAN wraps on right LE. TEDS on left leg. Mental Status: Alert and oriented x4 Pain: 1/10 during ambulation activity, 0/10 at rest ROM: Right Upper Extremity: Shoulder Flexion WFL. Shoulder abduction WFL. Elbow flexion WFL. Wrist flexion WFL. Opening and closing of hand WFL. Left Upper Extremity: Shoulder Flexion WFL. Shoulder abduction WFL. Elbow flexion WFL. Wrist flexion WFL. Opening and closing of hand WFL. Right Lower Extremity: Hip flexion WFL. Hip abduction WFL. Knee flexion 15degrees to 110 degrees. Knee extension -15 degrees. Ankle dorsiflexion about 10 degrees less than the left side. Ankle plantarflexion WFL. Left Lower Extremity: Hip flexion WFL. Hip abduction WFL. Knee flexion WFL. Ankle dorsiflexion WFL. Ankle plantarflexion WFL. Strength: Right Upper Extremity: Shoulder flexors 5/5. Shoulder abductors 5/5. Elbow flexors 5/5. Elbow extensors 5/5. Capacity Analyst strong. Left Upper Extremity: Shoulder flexors 5/5. Shoulder abductors 5/5. Elbow flexors 5/5. Elbow extensors 5/5. Capacity Analyst strong. Right Lower Extremity: Hip flexors 4/5. Hip abductors 4/5. Knee flexors 3-/5. Knee extensors 3-/5. Ankle dorsiflexors 3-/5. Ankle plantarflexors 4/5. Left Lower Extremity:Hip flexors 4/5. Hip abductors 4/5. Knee flexors 4/5. Knee extensors 4/5. Ankle dorsiflexors 5/5. Ankle plantarflexors 5/5. Sensation: Intact as to pain and pressure on bilateral lower extremities. Bed Mobility/Transfers: Rolling standby assist Supine to sit standby assist with HOB at 30 degrees Sit to stand contact-guard assist Stand to sit contact-guard assist Bed to chair contact-guard assist Chair to bed contact-guard assist Gait: Guided patient through level surface ambulation of 40 feet using front wheeled walker with WBAT on the right LE requiring contact-guard assist and IV pole management of PT, SINK MAKER Anu provided wheelchair follow for safety. Step-to gait pattern. Decreased jason. Complained of a mild ache in the right knee. Balance: Static Sitting: Normal Dynamic Sitting: Normal Static Standing: Fair Dynamic Standing: Fair Special Tests: Mobility Limitations Standardized Measure [facility] AM-PAC 6 clicks Basic Mobility Inpatient Short Form: Raw Score: 18 CMS Score: 47% deficit Informed Consent/Education: Patient instructed in purpose of PT consult and plan of care. Assessment: Jeff demonstrates functional mobility decline requiring the use of front wheeled walker for all transfer and ambulation task performance, impaired balance awareness, difficulty with walking, and increased risk for falls due to postoperative status and co-morbidities. Will benefit from continued outpatient physical therapy services for functional mobility progression and right knee rehabilitation along with ongoing therapy plan of care. Patient presents with clinical signs and symptoms consistent with current/admitting diagnoses that have resulted to mobility limitations, gait instability, generalized weakness, and impairment of motor control as demonstrated by the following impairment level findings: 1. Decreased strength to right knee major muscle groups 2. Impaired standing balance 3. Impaired activity tolerance 4. Limitation of joint range of motion in right knee and right ankle due to previous foot surgery Impairments are contributing to the following functional limitations: 1. Inability to safely ambulate without assistive device and physical assistance 2. Increase completion time for mobility ADL performance 3. Increased fall risk 4. Inability to negotiate steps alone safely Patient is assessed as a 39870 moderate complexity based on the following: History: 69-year-old male with impairment level findings, functional limitations, and past medical history as indicated above Examination: Demonstrable impairment in strength, balance, and mobility level with underlying impairments and functional limitations as documented above Presentation:Evolving Decision Makin moderate complexity Goals: Goals X 2-3 more sessions 1. Supine-Sit independent 2. Sit-Supine independent 3. Sit-Stand independent 4. Stand-Sit independent 5. Bed-Chair independent 6. Chair-Bed independent 7. Independent gait on level surface with use of least restrictive device for at least 100 feet without report of pain nor dyspnea 8. Independent stair negotiation while holding onto bilateral rails for at least 10 steps without report of pain nor dyspnea 9. Independent with home exercise program 10. Good static and dynamic standing balance/tolerance Plan of Care/Treatment Plan: Patient will be seen for 2-3 more sessions barrier to discharge. Plan of care has been reviewed with the DETECTIVE AND INTELLIGENCE ANALYST providing the service under Physical Therapy direction. Initiate Physical Therapy intervention for strengthening, bed mobility, transfers, gait, stairs, balance training, use of assistive device. DISCHARGE RECOMMENDATIONS: Home when medically cleared by orthopedic surgeon. Continue with outpatient PT services for right knee rehabilitation. TREATMENT CODE/TIME: 14873 x 30 minutes, 10692 x 29 minutes beginning at 16:29 PM. Thank you for the opportunity to participate in the care of this patient. Yary Warner PT, DPT, CLT [facility] [place], [place]
[2020-03-22] MEDS: ceFAZolin 1 GM/50 ML BAG IVPB (18:03)
--- NOTE | 2020-03-22 18:50 | W.PM.OP ---
Date of service: 03/22/20 Time of Service: 15:17 Operative Note Operative Note DATE OF PROCEDURE: 03/22/20 PRE-OP DIAGNOSIS: Right Knee Osteoarthritis and Left Knee Osteoarthritis POST-OP DIAGNOSIS: same PROCEDURE: Right Total Knee Replacement and Left Knee Injection SURGEON: Mac Chi PROCESS TANK TENDER: Geovanna Angulo ANESTHESIA: GETA and regional ESTIMATED BLOOD LOSS: 300 PATHOLOGY: none sent TOURNIQUET TIME: 35 COMPLICATIONS: None Patient was transported to: PACU Patient's condition: stable Implants: 1. Depuy Attune Posterior Stabilized Femoral Component, Size 8 2. Depuy Attune Fixed Platform Tibial Component, Size 7 3. Depuy Attune 8x6mm Fixed, Stabilized Poly 4. Depuy Attune Patellar Component, Size 35mm Indications: I have seen Cosmo in clinic for symptoms of RIGHT knee arthritis as well as LEFT knee arthritis, confirmed with radiographic findings. He has exhausted nonoperative methods and was having significant limitations in daily function and desired better function and less pain. I discussed the technical details of a knee replacement. I explained the risks of the procedure to include, but not limited to, bleeding, infection, pain, stiffness, fracture, damage to nerves and vessels, damage to muscles and tendons, loosening, need for repeat procedure, blood clot and cardiopulmonary demise. Despite these risks, Cosmo elected to proceed with knee replacement on the right and injection on the left. Findings: There was significant signs of arthritis throughout the knee with large osteophytes and some medial deformity. Procedure Description: Cosmo was greeted in the preoperative holding area where the correct side was identified and marked. The consent was reviewed with the patient and signed. The history and physical was updated. All questions were answered. Preoperative mediacations were administered: Acetaminophen 1000mg, Celebrex 400mg, and Gabapentin 300mg. An adductor canal block was then administered by the anesthesia team in the PACU. Cosmo was taken back to the operating room. A spinal anesthestic was then administered. The patient was placed into the supine position on the operating room table. A nonsterile tourniquet was placed high onto the right leg but only used for cementing. Posts were placed for positioning during the procedure. All bony prominences were well padded. Prophylactic antibiotics in the form of Cefazolin were administered. 1g of Tranxemic Acid was given intravenously within 30 minutes of incision. A timeout to confirm correct identity, side and site, procedure, allergies, anesthesia, and medical concerns was performed. The left knee was then injected using a superolateral approach after preparing the skin with an alcohol prep. 6cc of 0.5% bupivacaine along with 80mg of Depo-Medrol was injected without difficulty. The right leg was then prepped with Chloraprep and draped in a standard fashion with impervious stockinette. A second prep with Chloraprep was performed prior to application of Iodine impregnated skin protection. With the knee in some flexion, a midline incision was made overlying the knee. Full thickness skin flaps were raised once the extensor mechanism was encountered. These were raised medially and laterally. Any bleeding was controlled with electrocautery. Once the extensor mechanism was fully exposed, a medial parapatellar arthrotomy was performed in a flexed position. All bleeding from the arthrotomy and the geniculate arteries was coagulated. A medial subperiosteal peel was performed with electrocautery to the midcoronal plane. The fat pad was removed while keeping the patellar tendon protected. The anterior distal femur synovium was removed for later visualization. The ACL and PCL were resected and the anterior horn of the lateral meniscus was transected. The knee was then flexed with the patella everted. Large osteophytes from the tibia were removed. Large osteophytes from the femur were removed. COMMENTS. Using a step drill, and based on preoperative templating, the femoral canal was entered. This was done with a step drill without any difficulty. The intramedullary distal femoral cut guide was inserted, set to a 5 degree valgus cut and 9mm cut thickness. The distal femoral cut guide was then held in position and pinned. With the soft tissues protected, the distal cut was performed. This was passed over a few times to ensure a planar cut. I then turned attention to the tibia. The extramedullary guide was placed onto the leg. The distal aspect was slid medial to adjust for position of center of ankle and stay in line with shaft of the tibia. Approximately 3-5 degrees of posterior slope was kept in the proximal cutting guide. The center of the guide was aligned with the PCL. The stylus was used to assess cut thickness. The medial side, most involved side, was set for a 4mm cut. This was then held in position and pinned into place with 2 additional pins and a cross pin for stability. The medial and lateral collateral ligaments were protected and the cut was performed. With this completed, it was assessed and noted to be of appropriate dimensions. The guide was removed. A spacer block was inserted and the knee was brought into extension. The 6mm spacer block provided full extension, without hyperextension and with stability of both the medial and lateral collateral ligaments was assessed. The pins from the femur and the tibia were then removed. The distal femur was then sized. The anterior stylus was placed onto the lateral ridge of the anterior femur. This indicated a size 8 femur. The external rotation of the guide was adjusted to 3 degrees to match the epicondylar axis, perpendicular to [place]?s line. The 4-in-1 cutting guide was the placed. The posterior medial femur cut was evaluated and appeared of good thickness. The spacer block was inserted underneath the cutting guide and stability was confirmed in 90 degrees of flexion. An isabel wing was used to confirm appropriate position of the anterior cut to avoid notching. This cutting guide was ensured to be flush on the cut surface and then pinned into place with headed pins. While protecting the soft tissues, quad tendon, and collateral ligaments, the anterior and posterior cuts were performed with a saw. The central two pins were removed and the posterior and anterior chamfers were cut next. The notch-cutting guide was placed. This was pinned to lateralize the femoral component as much as possible while keeping it flush on the cut surface. This was then pinned into position. A reciprocating saw was used to make the notch cut. A rasp smoothed the cut surfaces. A trial posterior stabilized femoral component was then inserted, impacted down to the cut surfaces, and the lug holes were drilled. A provisional trial tibial component was placed and the knee was brought through range of motion. There was noted to be excellent extension and flexion. There was no significant instability. The patella was tracking without thumbs. The tibial cut surface was fully exposed. The medial and lateral menisci were removed. The tibia was then sized as a 7. The tibia had been previously marked during trialing to correspond to the center of the tibial component to help with rotation. The trial was aligned to this doris, approximately rotated to the medial 1/3rd of the tibial tubercle. The trial was pinned into place. The tibia was prepared with a reamer and a keel punch. The knee was then brought into extension and the patella was measured as 26mm but with a large central-lateral defect about 14mm in thickness. Using the patellar clamp and cut guide, this was resected to a flat surface with at least 13mm of thickness remaining in plane with the defect. The size 35 patella fit the best. This was oriented and then clamped into position. The lugs were drilled. The trial components were removed. The final components, except for the polyethylene were opened on the back table. The periosteal and capsular tissues, especially posteriorly, around the knee were then systematically injected with a periarticular cocktail consisting of 50cc 0.25% Marcaine, 30mg Ketorolac, 20cc of Exparal and 50cc of injectable saline. The tourniquet was then inflated to 275mmHg. The knee was thoroughly irrigated with a pulse lavage and dried. On the back table, with the implants opened, the cement was mixed. 2 batches of antibiotic laden cement were prepared with vacuum assistance. After the cement was ready a small amount was placed on to the back side of the tibial component at the keel. A small amount was placed onto the posterior flange of the femur. Cement was manual pressurized and impregnated into the cut surface of the tibia. The tibial component was then inserted into the cut surface and impacted into position. Excess cement was removed and the component was reimpacted. Again, excess cement was removed and our attention was then turned to the femur. The femoral cut surface was once again dried and cement was manually impacted into the cut surface. The femoral component was lined with the lug holes and impacted. Excess cement was removed. It was ensured to be down against the cut surface. The trial polyethylene was then inserted and the leg was brought out into full extension for the duration of the cement curing process, approximately 15min. Cement was lastly manually impacted into the cut surface of the patella and the patellar button was clamped into position and held. During this process attention was turned to the gutters of the knee and for all interfaces for any excess cement. While the cement was hardening, the knee was irrigated with Irrisept chlorhexadine solution. This was allowed to sit in the knee for 3 minutes. After the cement had finally cured, approximately 15min, the clamp was removed from the patella and the knee was taken through range of motion. A size 6mm polyethylene component provided the best range of motion and stability with less than 2mm gapping with medial and lateral stress and full extension without significant hyperextension. The patella was tracking with a no-thumbs technique. The trial poly was removed and once again the knee was checked for any loose, excess, or errant cement. The poly component was then inserted and impacted into position after cleaning and drying the tibial tray. The capsule was then reapproximated with a No. 1 Vicryl at multiple locations. The capsule was finally closed with a No. 2 Stratafix, barbed suture. The tourniquet was then released and the arthrotomy appeared watertight without significant bleeding. The second dosing of 1g TXA was started. Deep tissues were then reapproximated with 0 Vicryl and 2-0 Vicryl. The skin was closed with a running 3-0 Monocryl in a subcuticular fashion. This was reinforced with skin glue. A Mepilex silver dressing was applied along with a [id number] SEBASTIAN wrap. A CryoCuff was applied. Cosmo was transferred to the hospital bed without difficulty an suffering no apparent complication. Cosmo has a good prognosis. Physical therapy will start today and without restrictions, weight-bearing as tolerated. He will return to his [facility] for DVT prophylaxis.
[2020-03-22] MEDS: Ibuprofen 600 MG TAB PO (19:47)
[2020-03-22] MEDS: Pramipexole 0.5 MG TAB 2 MG PO (21:11)
[2020-03-23 00:01] VITALS: BP 131/78; PULSE 74; RESP 20; TEMP 36.6; O2SAT 98
[2020-03-23] MEDS: ceFAZolin 1 GM/50 ML BAG IVPB ×2 (02:55→10:42)
[2020-03-23 03:04] VITALS: BP 138/68; PULSE 71; RESP 20; TEMP 36.6; O2SAT 97
[2020-03-23 07:45] VITALS: BP 100/67; PULSE 68; RESP 20; TEMP 36.6; O2SAT 94
[2020-03-23] MEDS: buPROPion-XL 150 MG TABCR PO (08:03)
[2020-03-23] MEDS: Cholecalciferol (Vitamin D3) 1,000 UNIT TAB 2000 UNITS PO (08:04)
[2020-03-23] MEDS: Tamsulosin 0.4 MG CAPCR PO (08:04)
[2020-03-23] MEDS: Finasteride 5 MG TAB PO (08:05)
[2020-03-23] MEDS: Cyanocobalamin 500 MCG TAB 1000 MCG PO (08:05)
[2020-03-23] MEDS: Acetaminophen 500 MG TAB 1000 MG PO ×2 (08:05→13:48)
[2020-03-23] MEDS: Ibuprofen 600 MG TAB PO ×2 (08:05→13:48)
[2020-03-23] MEDS: Escitalopram 20 MG TAB PO (08:05)
[2020-03-23] MEDS: Pantoprazole 40 MG TABCR PO (08:05)
[2020-03-23 08:06] VITALS: RESP 25
[2020-03-23 08:12] VITALS: BP 102/80
--- NOTE | 2020-03-23 09:20 | INDS_ITS ---
Date of service: 03/23/20 Time of Service: 09:20 PT Notes Visit Reasons: RIGHT KNEE DJD Physical Therapy Inpatient Discharge Summary Date: 03/23/2020 Date of service: 03/22/2020 3 03/23/2020 Precautions: Fall. Standard. WBAT on right LE. Patient Profile/Admitting Diagnosis: Jeff is a 69-year-old male on palliative care with unilateral osteoarthritis of the right knee and is status post right total knee arthroplasty on postoperative day 1. PMHX: Medical History (Updated 01/19/20 @ 19:34 by Lacey Rosales MD) BPH (benign prostatic hyperplasia) BPPV (benign paroxysmal positional vertigo) Cauda equina syndrome Cellulitis and abscess of lower leg (01/21/13) Chewing tobacco nicotine dependence Chronic atrial fibrillation F/[place] with [place] Chronic gout Cognitive deficit as late effect of traumatic brain injury Depression with anxiety Hyperlipidemia Hypertension Incomplete emptying of bladder self caths Intentional weight loss halfway current use of anticoagulant Marijuana use, continuous Marital conflict Memory deficits Mental status change (01/21/13) Morbid obesity with BMI of 45.0-49.9, adult Myocardial ischemia Per pt. 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 Independent with all aspects of ADLs prior to surgery reports that she has not needed to use an assistive device for the past 4 months now. Is still working with an outpatient physical therapist in [place] for rehabilitation after spine surgery last year. He states that daughter will be fully involved with helping out as he recovers from this surgery. Equipment Owned/DME: To front wheeled walker is Subjective: Continues to be happy with how much he is moving and not hurting this morning. Much more inclined to agreeing to going home today once cleared by orthopedic surgeon. Objective: General Observation: Obese. TEDS on left leg. Mental Status: Alert and oriented x4 Pain: 1/10 during ambulation activity, 0/10 at rest in R knee. ROM: Right Upper Extremity: Shoulder Flexion WFL. Shoulder abduction WFL. Elbow flexion WFL. Wrist flexion WFL. Opening and closing of hand WFL. Left Upper Extremity: Shoulder Flexion WFL. Shoulder abduction WFL. Elbow flexion WFL. Wrist flexion WFL. Opening and closing of hand WFL. Right Lower Extremity: Hip flexion WFL. Hip abduction WFL. Knee flexion 15degrees to 110 degrees. Knee extension -15 degrees. Ankle dorsiflexion about 10 degrees less than the left side. Ankle plantarflexion WFL. Left Lower Extremity: Hip flexion WFL. Hip abduction WFL. Knee flexion WFL. Ankle dorsiflexion WFL. Ankle plantarflexion WFL. Strength: Right Upper Extremity: Shoulder flexors 5/5. Shoulder abductors 5/5. Elbow flexors 5/5. Elbow extensors 5/5. Mortgage Loan Computation Clerk strong. Left Upper Extremity: Shoulder flexors 5/5. Shoulder abductors 5/5. Elbow flexors 5/5. Elbow extensors 5/5. Mortgage Loan Computation Clerk strong. Right Lower Extremity: Hip flexors 4/5. Hip abductors 4/5. Knee flexors 3-/5. Knee extensors 3-/5. Ankle dorsiflexors 3-/5. Ankle plantarflexors 4/5. Left Lower Extremity:Hip flexors 4/5. Hip abductors 4/5. Knee flexors 4/5. Knee extensors 4/5. Ankle dorsiflexors 5/5. Ankle plantarflexors 5/5. Sensation: Intact as to pain and pressure on bilateral lower extremities. Bed Mobility/Transfers: Rolling independent Supine to sit independent Sit to stand independent Stand to sit independent Bed to chair independent Chair to bed independent Gait: Is now able to perform 200 feet +260 feet +200 feet of level surface ambulation using a front wheeled walker requiring only supervision with step through gait pattern. Initially reported stiffness in the right knee that resolved. Stairs: Negotiated 12 x 4 inch steps at a time 6 inch steps while holding onto 1 rail with 1 hand and with SPC with the other hand with standby assist using step over step pattern with no report of increased pain. Balance: Static Sitting: Normal Dynamic Sitting: Normal Static Standing: Fair Dynamic Standing: Fair Assessment: Made modified independent with the use of a front wheeled walker inside his room as of this morning. Advised to continue ambulation activity with nursing staff before he leaves if he wants to later this afternoon. Has received a written instructions for exercises that he can do safely at home. Encouraged frequent ambulation activity inside room using front wheeled walker along with exercise performance. Jeff will benefit from continued outpatient physical therapy services for functional mobility progression and right knee rehabilitation along with ongoing therapy plan of care. Patient presents with clinical signs and symptoms consistent with current/admitting diagnoses that have resulted to mobility limitations, gait instability, generalized weakness, and impairment of motor control as de monstrated by the following impairment level findings: 1. Decreased strength to right knee major muscle groups 2. Impaired standing balance 3. Limitation of joint range of motion in right knee and right ankle due to previous foot surgery Impairments are continuing to contribute to the following functional limitations: 1. Inability to safely ambulate without assistive device 2. Increase completion time for mobility ADL performance 3. Inability to negotiate steps alone safely Goals: Goals X 2-3 more sessions 1. Supine-Sit independent MET 2. Sit-Supine independent MET 3. Sit-Stand independent MET 4. Stand-Sit independent MET 5. Bed-Chair independent MET 6. Chair-Bed independent MET 7. Independent gait on level surface with use of least restrictive device for at least 100 feet without report of pain nor dyspnea MET 8. Independent stair negotiation while holding onto bilateral rails for at least 10 steps without report of pain nor dyspnea NOT MET 9. Independent with home exercise program NOT MET 10. Good static and dynamic standing balance/tolerance NOT MET DISCHARGE RECOMMENDATIONS: Home when medically cleared by orthopedic surgeon. Continue with outpatient PT services for right knee rehabilitation. TREATMENT CODE/TIME: 81315 x 15 minutes, [id number] x 30 minutes beginning at 9:20 AM. Thank you for the opportunity to participate in the care of this patient. Yary Warner PT, DPT, CLT [facility] [place], [place]
[2020-03-23] MEDS: Normal Saline 500 ML 100 ML IV (10:41)
[2020-03-23] MEDS: Normal Saline Flush 10 ML SYR (10:42)
[2020-03-23 11:02] VITALS: BP 111/66; PULSE 63; RESP 20; TEMP 36.6; O2SAT 94
--- NOTE | 2020-03-23 14:57 | CHAPLAIN ---
Jeff told me about his knee surgery, and said he's still not feeling pain. He expects to be discharged later today after practicing steps with PT.
--- NOTE | 2020-03-23 15:45 | NUR.NOTE ---
Nursing Note: At 1540 on 03/23/20, this RN returned a call from the pt.'s daughter, Anel Kwon. RN updated pt.'s daughter regarding the pt.'s discharge plan. Pt.'s daughter verbalized understanding and presented with a few questions that were answered. RN will reassess as necessary.
== END 2020-03-23 17:00 | disposition home or self-care (01) | DRG 470 ==
LOC: PDS 11:04 → MS 16:38
PROVIDERS: Admitting Provider Student in an Organized Health Care Education/Training Program; PCP Family Medicine; Visit Provider Student in an Organized Health Care Education/Training Program
PROC: 0SRC0J9 Replacement of Right Knee Joint with Synthetic Substitute, Cemented, Open Approach (ICD-10-PCS; CPT 27447; principal; 2020-03-22 14:45)
PROC: 0SRC0J9 Replacement of Right Knee Joint with Synthetic Substitute, Cemented, Open Approach (ICD-10-PCS; CPT 27447; 2020-03-22 14:45)
DX: M17.0 Bilateral primary osteoarthritis of knee (principal); I48.91 Unspecified atrial fibrillation; G47.33 Obstructive sleep apnea (adult) (pediatric); R33.9 Retention of urine, unspecified; F32.9 Major depressive disorder, single episode, unspecified; G25.81 Restless legs syndrome; R26.0 Ataxic gait; R73.03 Prediabetes; F17.220 Nicotine dependence, chewing tobacco, uncomplicated; F12.90 Cannabis use, unspecified, uncomplicated; M10.9 Gout, unspecified; E66.01 Morbid (severe) obesity due to excess calories; Z98.1 Arthrodesis status; Z87.440 Personal history of urinary (tract) infections; Z87.820 Personal history of traumatic brain injury
CPT/HCPCS: 27447; 20610; 76942; 97110; 97162; 97530; NC; J0690; J1040; J1100; J1885; J2001; J2405; J2704; J3010; J3490

== ENCOUNTER 2020-04-04 10:54 | Outpatient (CLI) | payer OTHER, SELFPAY ==
--- NOTE | 2020-04-04 09:15 | DI.RAD_ITS ---
EXAM: XR STANDING ALIGNMENT CLINICAL HISTORY: 1ST POST OP R TKA. TECHNIQUE: 2D digital imaging was performed. COMPARISON: No exams were available for comparison FINDINGS: There is right knee prosthesis which appears satisfactory. There is advanced narrowing of the medial compartment of the opposite-left knee. There is also narrowing of the lateral aspect of the ankle j oint-tibiotalar joint of the left leg. Similar finding not seen in the right ankle. Minimal degener ative changes in the hips. IMPRESSION: DATA REPOSITORY: RADIATION DOSE DELIVERED:
--- NOTE | 2020-04-04 09:15 | DI.RAD_ITS ---
EXAM: XR KNEE RT 1V CLINICAL HISTORY: 1st post op R TKA. TECHNIQUE: 2D digital imaging was performed. COMPARISON: CR XR KNEE RT 3V AP,LAT,NATALIYA from 09/03/2019 FINDINGS: Satisfactory position of the components of the right knee prosthesis as seen on this lateral view. N o fracture or loosening evident. IMPRESSION: DATA REPOSITORY: RADIATION DOSE DELIVERED:
== END 2020-04-04 10:55 | disposition home or self-care (01) ==
LOC: DIORS 10:55
PROVIDERS: PCP Family Medicine; Referring Provider Family Medicine; Visit Provider Physician Assistant
DX: Z96.651 Presence of right artificial knee joint (principal); M17.12 Unilateral primary osteoarthritis, left knee
CPT/HCPCS: 73560; 77073

== ENCOUNTER 2020-05-05 15:35 | Outpatient (REF) | payer OTHER, SELFPAY ==
[2020-05-05 15:45] LABS: Abs Immature Grans 0.02 10^3/uL (0.0-0.06); Absolute Basophil Count 0.03 10^3/uL (0.0-0.2); Absolute Eosinophil Count 0.18 10^3/uL (0.0-0.7); Absolute Monocyte Count 0.33 10^3/uL (0.1-0.8); Absolute Neutrophil Count 3.68 10^3/uL (1.2-6.7); Basophils % 0.5; Eosinophils % 3.2; HCT 40.6 % (40.0-50.0); HGB 13.1 g/dL (13.5-17.5); Immature Grans % 0.4; Lymphocytes % 23.5; MCH 30.8 pg (27.0-33.0); MCHC 32.3 % (32.0-36.0); MCV 95.3 fL (80-95); MPV 8.9 fL (8.0-11.0); Neutrophils % 66.4; Nucleated RBC 0 %; Platelet Count 264 10^3/uL (130-400); RBC 4.26 10^6/uL (4.36-5.78); RDW 17.4 % (11.8-14.1); RDW-SD 60.6 fL; WBC 5.54 10^3/uL (4.4-10.8)
[2020-05-05 15:59] LABS: Bilirubin Negative (Negative); Blood Small (Negative); Clarity Sl Cloudy (Clear); Glucose Negative (Negative); Ketones Negative (Negative); Leukocyte Esterase Negative (Negative); Nitrite Positive (Negative); Specific Gravity 1.025 (1.005-1.025); Urobilinogen 0.2 EU/dL (Up TO 0.2); pH 5.5 (5-8)
[2020-05-05 16:34] LABS: Bacteria Many HPF (Negative); C & S Indicated? Yes; Casts Negative LPF (Negative); Crystals Negative HPF (Negative); Epithelial Cells Rare HPF (Negative); Mucus Negative (Negative)
[2020-05-05 16:38] LABS: ALT 37 U/L (16-63); AST 24 U/L (15-37); Albumin 3.7 g/dL (3.4-5.0); Alkaline Phosphatase 82 U/L (46-116); Anion Gap 6.1 mmol/L (3-11); BUN 25 mg/dL (7-18); Bilirubin, Total 0.7 mg/dL (0.2-1.0); CO2 27.9 mmol/L (21.0-32.0); Calcium 9.1 mg/dL (8.5-10.1); Chloride 106 mmol/L (98-107); Folate 18.8 ng/mL (8.6-20.0); Glucose 147 mg/dL (74-106); Magnesium 2.1 mg/dL (1.8-2.4); Potassium 4.5 mmol/L (3.5-5.1); Sodium 140 mmol/L (136-145); Vitamin B12 972 pg/mL (193-986)
[2020-05-05 21:43] LABS: ESR 21 mm/hr (<or=20)
[2020-05-06 12:12] LABS: Hemoglobin A1C 5.6 % (<5.7)
== END 2020-05-05 15:36 | disposition home or self-care (01) ==
LOC: NCHCN 15:35
PROVIDERS: PCP Family Medicine; Visit Provider Family Medicine
DX: R73.03 Prediabetes (principal); R27.0 Ataxia, unspecified; R33.9 Retention of urine, unspecified; M79.604 Pain in right leg; M79.605 Pain in left leg
CPT/HCPCS: 80053; 85652; 81003; 81015; 82607; 82746; 83036; 83735; 85025; 87086

== ENCOUNTER → 2020-05-06 14:10 | Outpatient (BNVA) | payer OTHER, SELFPAY | PROVIDERS: PCP Family Medicine; Referring Provider Family Medicine; Visit Provider Urology | DX: R26.89 Other abnormalities of gait and mobility (principal); R33.8 Other retention of urine | CPT/HCPCS: 99214; 99215 ==

== ENCOUNTER 2020-05-06 18:35 | Outpatient (REF) | payer OTHER, SELFPAY ==
[2020-05-06 19:37] LABS: TSH 0.87 uIU/mL (0.36-3.74)
[2020-05-09 22:04] LABS: Copper, Serum 1.04 mcg/mL (0.75-1.45)
[2020-05-10 12:07] LABS: Ceruloplasmin 26.6 mg/dL
[2020-05-11 09:15] LABS: Methylmalonic Acid 0.12 nmol/mL (<=0.40)
[2020-05-11 15:45] LABS: 1,25-Dihydroxyvitamin D 29 pg/mL (18-64)
[2020-05-11 16:14] LABS: Gliadin (Deamidated) Ab, IgG <10.0 U
== END 2020-05-06 18:36 | disposition home or self-care (01) ==
LOC: LBN 18:35
PROVIDERS: PCP Family Medicine; Visit Provider Urology
DX: R26.89 Other abnormalities of gait and mobility (principal); R27.8 Other lack of coordination; E66.01 Morbid (severe) obesity due to excess calories; Z87.820 Personal history of traumatic brain injury
CPT/HCPCS: 80186; 82390; 83516; 86341; 82525; 82652; 84443

== ENCOUNTER → 2020-06-13 09:39 | Outpatient (BNVA) | payer OTHER, SELFPAY | PROVIDERS: PCP Family Medicine; Visit Provider Student in an Organized Health Care Education/Training Program | DX: Z47.1 Aftercare following joint replacement surgery (principal); Z96.651 Presence of right artificial knee joint ==

== ENCOUNTER 2020-06-22 10:00 | Outpatient (CLI) | payer OTHER, SELFPAY | END 2020-06-22 10:01 | PROVIDERS: PCP Family Medicine; Visit Provider Physician Assistant | DX: Z47.1 Aftercare following joint replacement surgery (principal); M17.12 Unilateral primary osteoarthritis, left knee; Z96.651 Presence of right artificial knee joint | CPT/HCPCS: 20610; J1040 ==

== ENCOUNTER → 2020-07-25 10:04 | Outpatient (BNVA) | payer OTHER, SELFPAY | PROVIDERS: PCP Family Medicine; Referring Provider Family Medicine; Visit Provider Student in an Organized Health Care Education/Training Program | DX: Z47.1 Aftercare following joint replacement surgery (principal); Z96.651 Presence of right artificial knee joint | CPT/HCPCS: 99213 ==

== ENCOUNTER → 2020-07-28 15:02 | Outpatient (BNVA) | payer OTHER, SELFPAY | PROVIDERS: PCP Family Medicine; Referring Provider Family Medicine; Visit Provider Urology | DX: N39.0 Urinary tract infection, site not specified (principal); R33.8 Other retention of urine | CPT/HCPCS: 81003; 99213; 96372; J0696 ==

== ENCOUNTER 2020-07-28 19:32 | Outpatient (REF) | payer OTHER, SELFPAY | END 2020-07-28 19:33 | disposition home or self-care (01) | LOC: LBN 19:32 | PROVIDERS: PCP Family Medicine; Visit Provider Urology | DX: N39.0 Urinary tract infection, site not specified (principal) | CPT/HCPCS: 87077; 87086; 87186 ==

== ENCOUNTER → 2020-08-09 08:33 | Outpatient (BNVA) | payer OTHER, SELFPAY | PROVIDERS: PCP Family Medicine; Referring Provider Family Medicine; Visit Provider Urology | DX: Z09 Encounter for follow-up examination after completed treatment for conditions other than malignant neoplasm (principal); Z87.440 Personal history of urinary (tract) infections | CPT/HCPCS: 81002; 99213 ==

== ENCOUNTER → 2020-08-30 14:21 | Outpatient (BNVA) | payer OTHER, SELFPAY | PROVIDERS: PCP Family Medicine; Referring Provider Family Medicine; Visit Provider Urology | DX: N39.0 Urinary tract infection, site not specified (principal); R33.8 Other retention of urine | CPT/HCPCS: 81003; 99213; 96372; J0696 ==

== ENCOUNTER 2020-08-30 17:06 | Outpatient (REF) | payer OTHER, SELFPAY ==
[2020-08-30 16:39] LABS: Bilirubin Negative (Negative); Blood Negative (Negative); Clarity Sl Cloudy (Clear); Glucose Negative (Negative); Ketones Negative (Negative); Leukocyte Esterase Trace (Negative); Nitrite Positive (Negative); Specific Gravity 1.025 (1.005-1.025); Urobilinogen 0.2 EU/dL (Up TO 0.2); pH 5.5 (5-8)
[2020-08-30 16:46] LABS: Bacteria Many HPF (Negative); C & S Indicated? C&S Done As Ordered; Casts Negative LPF (Negative); Crystals Negative HPF (Negative); Epithelial Cells Rare HPF (Negative); Mucus Negative (Negative); RBC 0-2 HPF (0-2)
== END 2020-08-30 17:07 | disposition home or self-care (01) ==
LOC: LBN 17:06
PROVIDERS: PCP Family Medicine; Visit Provider Urology
DX: N39.0 Urinary tract infection, site not specified (principal)
CPT/HCPCS: 87077; 81003; 81015; 87086; 87186

== ENCOUNTER → 2020-10-12 09:22 | Outpatient (BNVA) | payer OTHER, SELFPAY | PROVIDERS: PCP Family Medicine; Referring Provider Family Medicine | DX: M17.12 Unilateral primary osteoarthritis, left knee (principal) | CPT/HCPCS: 20610; J1040 ==

== ENCOUNTER 2020-10-12 15:02 | Outpatient (REF) | payer OTHER, SELFPAY ==
[2020-10-12 14:35] LABS: HCT 42.8 % (40.0-50.0); HGB 13.5 g/dL (13.5-17.5); MCH 27.8 pg (27.0-33.0); MCHC 31.5 % (32.0-36.0); MCV 88.1 fL (80-95); MPV 9.1 fL (8.0-11.0); Platelet Count 259 10^3/uL (130-400); RBC 4.86 10^6/uL (4.36-5.78); RDW 18.1 % (11.8-14.1); RDW-SD 58.9 fL; WBC 6.98 10^3/uL (4.4-10.8)
[2020-10-12 14:49] LABS: Bilirubin Negative (Negative); Blood Small (Negative); Clarity Clear (Clear); Glucose Negative (Negative); Ketones Negative (Negative); Leukocyte Esterase Trace (Negative); Nitrite Positive (Negative); Specific Gravity 1.025 (1.005-1.025); Urobilinogen 0.2 EU/dL (Up TO 0.2); pH 5.5 (5-8)
[2020-10-12 14:56] LABS: Anion Gap 10.8 mmol/L (3-11); BUN 29 mg/dL (7-18); CO2 25.2 mmol/L (21.0-32.0); CREATININE 0.8 mg/dL (0.70-1.30); Calcium 9.6 mg/dL (8.5-10.1); Chloride 106 mmol/L (98-107); Ferritin 31 ng/mL (26-388); Glucose 92 mg/dL (74-106); Potassium 4.3 mmol/L (3.5-5.1); Sodium 142 mmol/L (136-145)
[2020-10-12 14:57] LABS: Hemoglobin A1C 5.9 % (<5.7)
[2020-10-12 15:04] LABS: Bacteria Many HPF (Negative); C & S Indicated? Yes; Casts Negative LPF (Negative); Crystals Negative HPF (Negative); Epithelial Cells Negative HPF (Negative); Mucus Negative (Negative); RBC 0-2 HPF (0-2); WBC >50 HPF (0-5)
== END 2020-10-12 15:03 | disposition home or self-care (01) ==
LOC: NCHCN 15:02
PROVIDERS: PCP Family Medicine; Visit Provider Family Medicine
DX: I10 Essential (primary) hypertension (principal); I48.0 Paroxysmal atrial fibrillation; R73.03 Prediabetes; G25.81 Restless legs syndrome; R82.998 Other abnormal findings in urine
CPT/HCPCS: 80048; 85027; 87077; 81003; 81015; 82728; 83036; 87086; 87186

== ENCOUNTER 2020-10-21 10:56 | Observation (INO) | payer OTHER, SELFPAY ==
[2020-10-21] VITALS (13 sets, daily range): BP systolic 97–153; BP diastolic 73–123; PULSE 67–104; RESP 16–19; TEMP 36.7–37.1; O2SAT 94–97
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
--- NOTE | 2020-10-21 11:58 | DI.MRI_ITS ---
Exam(s) MR LUMBAR SPINE WO EXAM: MR LUMBAR SPINE WO CLINICAL HISTORY: l2-5 decomp 06/13, pain, retention, and left radicu. TECHNIQUE: Multiplanar multisequence MRI was performed. COMPARISON: MR MR LUMBAR SPINE WO from 01/13/2020 FINDINGS: MR examination lumbosacral spine was attempted. The patient was unable to hold still and the examin ation is of very limited technical quality. Patient reportedly has history of prior laminectomy from T12-L5. Postsurgical changes are noted. The spinal canal is very poorly visualized on these images . There does appear to be deformity of the spinal canal at the L2-3 level, similar to findings on pr ior examination of December 2019. Today's examination is not of adequate technical quality to evaluate the possibility of central canal spinal stenosis, epidural hematoma or abscess, or other significant pathology. IMPRESSION: The examination is technically inadequate to exclude pathology. DATA REPOSITORY:
[2020-10-21 12:04] LABS: Abs Immature Grans 0.02 10^3/uL (0.0-0.06); Absolute Basophil Count 0.02 10^3/uL (0.0-0.2); Absolute Eosinophil Count 0.11 10^3/uL (0.0-0.7); Absolute Lymphocyte Count 0.77 10^3/uL (1.2-3.4); Absolute Neutrophil Count 4.27 10^3/uL (1.2-6.7); Basophils % 0.3; Eosinophils % 1.8; HCT 47.8 % (40.0-50.0); HGB 15.2 g/dL (13.5-17.5); Immature Grans % 0.3; Lymphocytes % 12.9; MCHC 31.8 % (32.0-36.0); MCV 88.2 fL (80-95); MPV 8.8 fL (8.0-11.0); Monocytes % 13.4; Neutrophils % 71.3; Nucleated RBC 0 %; Platelet Count 211 10^3/uL (130-400); RBC 5.42 10^6/uL (4.36-5.78); RDW 18.6 % (11.8-14.1); RDW-SD 59.9 fL; WBC 5.99 10^3/uL (4.4-10.8)
[2020-10-21] MEDS: fentaNYL 100 MCG/2 ML VIAL 50 MCG IVP (12:10)
[2020-10-21] MEDS: Orphenadrine 60 MG/2 ML VIAL 30 MG IVP (12:10)
[2020-10-21] MEDS: Dexamethasone 10 MG/ML VIAL IVP (12:10)
[2020-10-21 12:15] LABS: ALT 34 U/L (16-63); AST 21 U/L (15-37); Alkaline Phosphatase 79 U/L (46-116); Anion Gap 6.3 mmol/L (3-11); BUN 22 mg/dL (7-18); Bilirubin, Total 0.6 mg/dL (0.2-1.0); CO2 30.7 mmol/L (21.0-32.0); CREATININE 0.8 mg/dL (0.70-1.30); Calcium 8.9 mg/dL (8.5-10.1); Chloride 103 mmol/L (98-107); Glucose 111 mg/dL (74-106); Potassium 4.1 mmol/L (3.5-5.1); Sodium 140 mmol/L (136-145); Total Protein 7.5 g/dL (6.4-8.2)
[2020-10-21 12:48] LABS: Bilirubin Negative (Negative); Blood Negative (Negative); Clarity Clear (Clear); Glucose Negative (Negative); Ketones Negative (Negative); Leukocyte Esterase Negative (Negative); Nitrite Negative (Negative); Specific Gravity 1.015 (1.005-1.025); Urobilinogen 0.2 EU/dL (Up TO 0.2); pH 5.5 (5-8)
[2020-10-21] MEDS: Pramipexole 0.25 MG TAB 0.125 MG PO (13:15)
[2020-10-21] MEDS: LORazepam 2 MG/ML VIAL 1 MG IVP ×2 (13:29→13:56)
[2020-10-21 14:58] LABS: C-Reactive Protein 0.45 mg/dL (0.0-0.3)
[2020-10-21] MEDS: traMADol 50 MG TAB PO ×2 (15:36→22:18)
--- NOTE | 2020-10-21 16:02 | NT_ITS ---
Date of service: 10/21/20 Time of Service: 15:52 PT Notes Per conversation with referring provider, the plan is for patient to be admitted as he is not able to walk and is not safe to go home alone. Will plan to evaluate for PT once referral from hospitalist is received. Thank you for the opportunity to participate in the care of this patient. Yary Warner PT, DPT, CLT [facility] [place], [place]
[2020-10-21 16:27] LABS: Source Nasal/Nares
[2020-10-21 17:29] LABS: COVID-19 PCR Negative (Negative)
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
[2020-10-22 00:05] VITALS: BP 123/86; PULSE 89; RESP 20; TEMP 36.8; O2SAT 93
[2020-10-22 01:46] LABS: Bilirubin Negative (Negative); Blood Negative (Negative); Clarity Clear (Clear); Glucose Negative (Negative); Ketones Negative (Negative); Leukocyte Esterase Negative (Negative); Nitrite Negative (Negative); Specific Gravity 1.015 (1.005-1.025); Urobilinogen 0.2 EU/dL (Up TO 0.2); pH 5.5 (5-8)
[2020-10-22] MEDS: Pramipexole 0.5 MG TAB 2 MG PO ×2 (01:47→19:28)
[2020-10-22] MEDS: MacroBID 100 MG CAP PO ×3 (01:48→19:16)
[2020-10-22] MEDS: Gabapentin 300 MG CAP PO ×2 (01:48→19:13)
[2020-10-22] MEDS: traMADol 50 MG TAB PO ×4 (01:51→21:19)
[2020-10-22 04:06] VITALS: BP 147/88; PULSE 79; RESP 18; TEMP 37.1; O2SAT 98
[2020-10-22 07:09] LABS: Abs Immature Grans 0.02 10^3/uL (0.0-0.06); Absolute Basophil Count 0.01 10^3/uL (0.0-0.2); Absolute Eosinophil Count 0.02 10^3/uL (0.0-0.7); Absolute Neutrophil Count 5.16 10^3/uL (1.2-6.7); Basophils % 0.1; Eosinophils % 0.3; HCT 45.6 % (40.0-50.0); HGB 14.6 g/dL (13.5-17.5); Immature Grans % 0.3; Lymphocytes % 14.3; MCH 28.1 pg (27.0-33.0); MCV 87.7 fL (80-95); MPV 9.1 fL (8.0-11.0); Monocytes % 11.4; Neutrophils % 73.6; Nucleated RBC 0 %; Platelet Count 221 10^3/uL (130-400); RDW 18.1 % (11.8-14.1); RDW-SD 58.9 fL; WBC 7.01 10^3/uL (4.4-10.8)
[2020-10-22 07:24] LABS: ALT 26 U/L (16-63); AST 16 U/L (15-37); Albumin 3.6 g/dL (3.4-5.0); Alkaline Phosphatase 73 U/L (46-116); BUN 24 mg/dL (7-18); Bilirubin, Total 0.5 mg/dL (0.2-1.0); CREATININE 0.8 mg/dL (0.70-1.30); Calcium 8.9 mg/dL (8.5-10.1); Chloride 101 mmol/L (98-107); Glucose 135 mg/dL (74-106); Sodium 136 mmol/L (136-145); Total Protein 7.1 g/dL (6.4-8.2)
[2020-10-22] MEDS: Cholecalciferol (Vitamin D3) 1,000 UNIT TAB 2000 UNITS PO (09:14)
[2020-10-22] MEDS: Cyanocobalamin 500 MCG TAB 1000 MCG PO (09:14)
[2020-10-22] MEDS: Lisinopril 5 MG TAB PO (09:14)
[2020-10-22] MEDS: Finasteride 5 MG TAB PO (09:15)
[2020-10-22] MEDS: Tamsulosin 0.4 MG CAPCR PO (09:17)
[2020-10-22] MEDS: Escitalopram 20 MG TAB PO (09:17)
[2020-10-22] MEDS: Furosemide 40 MG TAB PO (09:17)
[2020-10-22] MEDS: Ferrous Sulfate 325 MG TAB PO (09:18)
[2020-10-22] MEDS: buPROPion-XL 150 MG TABCR PO (09:18)
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
[2020-10-22] MEDS: predniSONE 10 MG TAB PO (11:03)
[2020-10-22 12:47] VITALS: BP 123/80; PULSE 72; RESP 16; TEMP 36.5; O2SAT 96
[2020-10-22] MEDS: Diclofenac 1% Gel 100 GM TUBE TP ×3 (12:52→19:36)
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
[2020-10-22] MEDS: predniSONE 20 MG TAB 40 MG PO (17:37)
[2020-10-22] MEDS: Magnesium Oxide 400 MG TAB PO (19:12)
[2020-10-22] MEDS: Omeprazole 20 MG CAPCR PO (19:15)
[2020-10-22 19:24] VITALS: BP 107/73; PULSE 70; RESP 16; TEMP 36.2; O2SAT 95
[2020-10-22] MEDS: Docusate Sodium 100 MG CAP PO (19:30)
[2020-10-22] MEDS: Methocarbamol 750 MG TAB PO (19:30)
[2020-10-22 23:06] VITALS: BP 120/77; PULSE 71; RESP 18; TEMP 36.4; O2SAT 91
[2020-10-23] MEDS: traMADol 50 MG TAB PO ×3 (04:09→11:57)
[2020-10-23 04:10] VITALS: BP 124/68; PULSE 74; RESP 20; TEMP 36.7; O2SAT 92
[2020-10-23] MEDS: Methocarbamol 750 MG TAB PO ×2 (04:10→11:57)
[2020-10-23 07:41] VITALS: BP 134/88; PULSE 78; RESP 18; TEMP 36.3; O2SAT 99
[2020-10-23] MEDS: Ferrous Sulfate 325 MG TAB PO (08:14)
[2020-10-23] MEDS: MacroBID 100 MG CAP PO (08:14)
[2020-10-23] MEDS: Cholecalciferol (Vitamin D3) 1,000 UNIT TAB 2000 UNITS PO (08:14)
[2020-10-23] MEDS: Lisinopril 5 MG TAB PO (08:15)
[2020-10-23] MEDS: Cyanocobalamin 500 MCG TAB 1000 MCG PO (08:15)
[2020-10-23] MEDS: buPROPion-XL 150 MG TABCR PO (08:15)
[2020-10-23] MEDS: Escitalopram 20 MG TAB PO (08:15)
[2020-10-23] MEDS: Omeprazole 20 MG CAPCR PO (08:15)
[2020-10-23] MEDS: Finasteride 5 MG TAB PO (08:16)
[2020-10-23] MEDS: Furosemide 40 MG TAB PO (08:16)
[2020-10-23] MEDS: Tamsulosin 0.4 MG CAPCR PO (08:16)
[2020-10-23] MEDS: Diclofenac 1% Gel 100 GM TUBE TP ×2 (08:16→11:58)
[2020-10-23] MEDS: predniSONE 10 MG TAB PO (08:16)
[2020-10-23 11:41] VITALS: BP 136/75; PULSE 67; RESP 18; TEMP 37.1; O2SAT 96
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
--- NOTE | 2020-10-23 13:27 | PT.INTREAT ---
Date of service: 10/23/20 Time of Service: 10:36 PT Notes Visit Reasons: Intractable lumbar back pain, Lumbar radiculopathy Inpatient Physical Therapy Treatment Note [facility] Date: 10/23/2020 PRECAUTIONS: WBAT L SUBJECTIVE: Cosmo is pleasant and agreeable to participating in PT. He states that he has no pain at rest, although has very significant L knee pain with weight bearing activities. He is concerned about living alone in a camper and how to get in and out with his pain restrictions. OBJECTIVE: Issued Coreflex knee braces, per Shameka Nicole NP, and FWW. [facility] form completed and returned to nursing supervisior, Pinky. PAIN: Patient c/o 9/10 pain in L knee with weight bearing. BED MOBILITY/TRANSFERS Rolling L/R: I Supine-sit: I Sit-supine: I Sit-stand: I Stand-sit: I Bed-Chair: I Chair-bed: I GAIT Assistive Device: FWW Weight bearing: WBAT L Assist: I Distance: 20' x2 Deviation: Increased L knee pain THEREX: Patient was instructed in a LE strengthening and stabilization program, completed in both side-lying and supine positions, as per flow sheet. He was not able to complete bridging with PPT exercise due to increasing L knee pain. ASSESSMENT: Patient demonstrates independence with short-distance ambulation with FWW support, reporting decreased discomfort with B knee braces. Following discussion with primary nurse, Genny, patient is cleared to transfer and ambulate short, in-room distances with a FWW at this time. PLAN: Patient to discharge to home with B knee braces for increased stability as well as FWW. Recommend follow up with PT. TREATMENT CODE/TIME: 50 minutes; 50699 x2, 26426 (10:35) + 15 minutes; no charge (13:05)
[2020-10-23] MEDS: Lidocaine 5% Patch 2 PATCH TP (13:44)
[2020-10-23] MEDS: Gabapentin 300 MG CAP PO (13:44)
--- NOTE | 2020-10-23 14:29 | PDOC.HHF2F ---
Home Health Certification Home Health Certification: 1. Encounter Date and Reason I certify that Jeff Méndez was seen by Monica Landry on 10/23/20 and that I had a [id number] encounter with this patient that meets the physician face to face encounter requirements. 2. Clinical Findings Supporting Skilled Need and Homebound Status I certify that home health services are medically necessary, include either intermittent snf and/or physical/speech therapy, and that this patient is homebound in that absences from the home require considerable and taxing effort and are infrequent or of short duration, or are attributable to the need to receive medical care. [X] (a) Attached documentation from encounter provides clinical findings supporting skilled need and homebound status (including what assistance patient requires to leave the home). The encounter with the patient was in whole, or in part, for the following medical condition, which is the primary reason for home health care: Intractable lumbar back pain, Lumbar radiculopathy Correction: Patient would benefit from nursing services to help with adl, catherizations and medication administration until he can better ambulate and move lower extremities Physical Therapy: Patient would benefit from PT for pain management with ambulation and gait stability along with massage to the affected pain area. He would also benefit from sciatic exercises, Homebound: Unable to leave home without assistance 3. Certification and Authentication I certify that I composed the above information based on my clinical judgement relating to this patient's medical condition and, if applicable, clinical findings communicated to me by the NPP or inpatient physician who performed the Home Health Referral. All further orders will be obtained through ___Tasha Wright (Community Based Physician - PCP)
--- NOTE | 2020-10-23 14:45 | PDOC.CMDIS ---
- If Service Date Differs Date of service: 10/23/20 Time of Service: 14:45 LACE Index Scoring Tool - Questions: Length of Stay (in days): 2 Acuity (Admit via E.D.?): Yes E.D. Visits: 2 - Answers: Total Score: 7 Risk of Readmission: Low Risk Care Management Discharge Reason for Hospitalization: Back pain with radiculopathy Discharge Plan: Cosmo will be discharged home to his camper with new home health services for nursing and physical therapy. He will follow up with his PCP, and orthopedics and a referral will be sent to the pain clinic. Cosmo was also given braces for both knees and a walker by PT.He will transport via private vehicle with his daughter Anel. Patient/Family Education Needs: Review of discharge instructions, medications, limitations, activity, follow up plan, Ask Me Three Services Needed at Discharge: Home Health Care Services
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
== END 2020-10-23 14:48 | disposition home health service (06) ==
LOC: ER 17:56 → MS 10-22 14:04
PROVIDERS: Physician Assistant; Admitting Provider Family Medicine; Emergency Provider Physician Assistant; PCP Family Medicine; Visit Provider Family Medicine
DX: M54.16 Radiculopathy, lumbar region (principal); N39.0 Urinary tract infection, site not specified; M17.12 Unilateral primary osteoarthritis, left knee; G25.81 Restless legs syndrome; R26.81 Unsteadiness on feet; N40.0 Benign prostatic hyperplasia without lower urinary tract symptoms; I48.20 Chronic atrial fibrillation, unspecified; M1A.9XX0 Chronic gout, unspecified, without tophus (tophi); E78.5 Hyperlipidemia, unspecified; I10 Essential (primary) hypertension; R33.9 Retention of urine, unspecified; F41.8 Other specified anxiety disorders; F12.90 Cannabis use, unspecified, uncomplicated; G47.33 Obstructive sleep apnea (adult) (pediatric); Z79.899 Other long term (current) drug therapy; Z20.822 Contact with and (suspected) exposure to COVID-19; Z86.73 Personal history of transient ischemic attack (TIA), and cerebral infarction without residual deficits; Z72.0 Tobacco use; E66.01 Morbid (severe) obesity due to excess calories; Z68.38 Body mass index [BMI] 38.0-38.9, adult; Z96.651 Presence of right artificial knee joint; S06.9X9S Unspecified intracranial injury with loss of consciousness of unspecified duration, sequela
CPT/HCPCS: 36415; 80053; 87635; 97110; 97163; 97530; J2360; 72148; 81003; 85025; 86140; 99217; 99220; 99225; G0378; J0131; J1100; J2060; J3010; J3490; J7512

== ENCOUNTER 2020-10-26 06:56 | Emergency (ER) | payer OTHER, SELFPAY ==
[2020-10-26 07:01] VITALS: BP 156/93; PULSE 72; RESP 18; TEMP 36.9; O2SAT 97
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
--- NOTE | 2020-10-26 08:26 | DI.RAD_ITS ---
Exam(s) XR KNEE LT 3V AP,LAT,NATALIYA EXAM: XR KNEE LT 3V AP,LAT,NATALIYA CLINICAL HISTORY: left knee pain. TECHNIQUE: 2D digital imaging was performed. COMPARISON: CR XR KNEE RT 1V from 04/04/2020 FINDINGS: There is no evidence of acute fracture. No prominent joint effusion noted. Tricompartmental degener ative changes are noted. Most prominent in the medial patellofemoral compartments. Vascular calcifi cation is noted in the runoff vessels of the calf indicating atherosclerotic involvement IMPRESSION: No fracture evident. Degenerative changes. DATA REPOSITORY: RADIATION DOSE DELIVERED:
[2020-10-26 09:47] VITALS: BP 137/95; PULSE 65; RESP 16; TEMP 36.6; O2SAT 96
[2020-10-26] MEDS: LORazepam 2 MG/ML VIAL 1 MG IVP (11:42)
[2020-10-26 12:42] VITALS: BP 137/97; PULSE 85; RESP 18; TEMP 36.7; O2SAT 96
[2020-10-26] MEDS: traMADol 50 MG TAB PO (13:36)
[2020-10-26] MEDS: Gabapentin 300 MG CAP PO (13:36)
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
--- NOTE | 2020-10-26 15:27 | NUR.NOTE ---
caremanagement involved. Nursing Note:
[2020-10-26 15:45] VITALS: BP 154/97; PULSE 82; RESP 18; O2SAT 97
--- NOTE | 2020-10-26 16:20 | NUR.NOTE ---
MD Bridges and SCOOBY lozano had huddle with oatient and family memeber on phone. POC discharge home with RCT. Nursing Note:
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
--- NOTE | 2020-10-27 11:26 | CMPROGNOTE_ITS ---
- If Service Date Differs Date of service: 10/26/20 Time of Service: 11:26 Care Management Progress Note Cosmo presents in the ED for leg and back pain and inability to ambulate. CM meets with Cosmo to discuss his needs and to offer support. Cosmo reports severe intermittent knee and back pain and frustration over his inability to do the things he used to do, such as ride [place] bike and drive [place] Cosmo lives alone in a camper and per his daughter, Anel, he struggles to take care of himself. Cosmo has multiple comorbidities and few community supports. Home Health nursing and PT services are scheduled to begin this week. CM discusses [place] [facility] with Cosmo and his daughter and he is agreeable to CM making a referral. We also talk about Medicaid and with Cosmo's verbal permission, CM outreaches to [employer] to enlist their help in exploring Cosmo's eligibility for Medicaid. [employer] in turn refer Cosmo to Mercedes Alvarez, Community Emulsion Operator at Cosmo's PCP's office, for assistance with health insurance. SEAN also provides Anel contact information for VF, as they can assist with finding appropriate housing.
== END 2020-10-26 16:55 | disposition home or self-care (01) ==
PROVIDERS: Emergency Provider Student in an Organized Health Care Education/Training Program; PCP Family Medicine
DX: M25.562 Pain in left knee (principal); M54.5 Low back pain; R26.2 Difficulty in walking, not elsewhere classified
CPT/HCPCS: 73562; 96374; 97162; 99283; 99284; J2060

== ENCOUNTER 2020-11-02 11:16 | Outpatient (REF) | payer OTHER, SELFPAY ==
[2020-11-02 14:30] LABS: HCT 44.7 % (40.0-50.0); HGB 14.1 g/dL (13.5-17.5); MCHC 31.5 % (32.0-36.0); MCV 88.9 fL (80-95); MPV 9.6 fL (8.0-11.0); Platelet Count 218 10^3/uL (130-400); RBC 5.03 10^6/uL (4.36-5.78); RDW 17.8 % (11.8-14.1); RDW-SD 57.8 fL; WBC 6.36 10^3/uL (4.4-10.8)
[2020-11-02 14:48] LABS: Ferritin 107 ng/mL (26-388)
== END 2020-11-02 11:17 | disposition home or self-care (01) ==
LOC: NCHCN 11:16
PROVIDERS: PCP Family Medicine; Visit Provider Family Medicine
DX: G25.81 Restless legs syndrome (principal); R53.83 Other fatigue; M25.562 Pain in left knee
CPT/HCPCS: 85027; 82728

== ENCOUNTER → 2020-11-04 14:35 | Outpatient (BNVA) | payer OTHER, SELFPAY | PROVIDERS: PCP Family Medicine; Referring Provider Family Medicine; Visit Provider Urology | DX: R33.8 Other retention of urine (principal); N39.0 Urinary tract infection, site not specified | CPT/HCPCS: 81003; 99215 ==

== ENCOUNTER 2020-11-04 17:22 | Outpatient (REF) | payer OTHER, SELFPAY | END 2020-11-04 17:23 | disposition home or self-care (01) | LOC: LBN 17:22 | PROVIDERS: PCP Family Medicine; Visit Provider Urology | DX: N39.0 Urinary tract infection, site not specified (principal) | CPT/HCPCS: 87077; 87086; 87186 ==

== ENCOUNTER → 2020-11-11 15:47 | Outpatient (BNVA) | payer OTHER, SELFPAY | PROVIDERS: PCP Family Medicine; Referring Provider Family Medicine; Visit Provider Urology | DX: N39.0 Urinary tract infection, site not specified (principal) | CPT/HCPCS: 81003; 99213 ==

== ENCOUNTER 2020-11-25 17:00 | Outpatient (REF) | payer MEDICARE, OTHER, SELFPAY ==
[2020-11-25 18:09] LABS: Bilirubin Negative (Negative); Blood Trace-intact (Negative); Clarity Sl Cloudy (Clear); Glucose Negative (Negative); Ketones 15 mg/dL (Negative); Leukocyte Esterase Trace (Negative); Nitrite Positive (Negative); Specific Gravity 1.025 (1.005-1.025); Urobilinogen 0.2 EU/dL (Up TO 0.2); pH 5.5 (5-8)
[2020-11-25 18:25] LABS: Bacteria Many HPF (Negative); C & S Indicated? Yes; Casts Negative LPF (Negative); Crystals Negative HPF (Negative); Epithelial Cells Few HPF (Negative); Mucus Negative (Negative); RBC 0-2 HPF (0-2)
== END 2020-11-25 17:01 | disposition home or self-care (01) ==
LOC: LBN 17:00
PROVIDERS: PCP Family Medicine; Visit Provider Urology
DX: N39.0 Urinary tract infection, site not specified (principal)
CPT/HCPCS: 87077; 81003; 81015; 87086; 87186

== ENCOUNTER → 2020-11-28 13:55 | Outpatient (BNVA) | payer MEDICARE, OTHER, SELFPAY | PROVIDERS: PCP Family Medicine; Referring Provider Family Medicine | DX: S76.111D Strain of right quadriceps muscle, fascia and tendon, subsequent encounter (principal); T84.84XD Pain due to internal orthopedic prosthetic devices, implants and grafts, subsequent encounter; X58.XXXD Exposure to other specified factors, subsequent encounter; Z96.651 Presence of right artificial knee joint | CPT/HCPCS: 99213 ==

== ENCOUNTER 2020-12-05 02:38 | Outpatient (CLI) | payer MEDICARE, SELFPAY ==
[2020-12-05 11:02] LABS: Source Nasal/Nares
[2020-12-05 16:36] LABS: COVID-19 PCR Negative (Negative)
== END 2020-12-05 02:39 | disposition home or self-care (01) ==
PROVIDERS: PCP Family Medicine; Visit Provider Student in an Organized Health Care Education/Training Program
DX: Z20.822 Contact with and (suspected) exposure to COVID-19 (principal); Z01.818 Encounter for other preprocedural examination
CPT/HCPCS: 87635

== ENCOUNTER 2020-12-06 12:01 | Day surgery (SDC) | payer OTHER, SELFPAY ==
[2020-12-06] VITALS (8 sets, daily range): BP systolic 58–111; BP diastolic 42–78; PULSE 59–80; RESP 14–18; TEMP 36.3–36.6; O2SAT 93–99; BMI 39.9
--- NOTE | 2020-12-06 10:20 | PDOC.DSDIS_ITS ---
Documented by User: ABRAHAM Banks 12/06/20 10:24 Discharge Plan Disposition Patient Disposition: HOME Condition: Stable Discharge Details Reason For Visit: Right Quadriceps Tendon/Arthrotomy Repair Attending Provider: Mac Chi Primary Care Provider: Tasha Wright Home Meds and New Rx's Prescriptions: New tramadol 50 mg tablet 50 mg PO Q4H PRNQty: 10 RF: 0 acetaminophen 500 mg tablet 1,000 mg PO Q8H PRN (Reason: pain) Qty: 90 RF: 3 Continued magnesium 250 mg tablet 250 mg PO DAILY RF: 0 One-A-Day Men's 50 Plus 400-20-370 mcg tablet 1 tab PO DAILY RF: 0 Pradaxa 150 mg capsule 150 mg PO BID Qty: 60 RF: 0 escitalopram oxalate [Lexapro] 20 mg tablet 20 mg PO DAILY Qty: 90 RF: 0 cholecalciferol (vitamin D3) 50 mcg (2,000 unit) capsule 50 mcg PO DAILY Qty: 90 RF: 0 finasteride 5 mg tablet 5 mg PO DAILY Qty: 90 RF: 4 tamsulosin 0.4 mg capsule 0.4 mg PO DAILY Qty: 90 RF: 4 ciprofloxacin HCl 500 mg tablet 500 mg PO BID Qty: 20 RF: 0 pramipexole 1 MG tablet 2 mg PO HS RF: 0 furosemide 40 MG tablet 1 tab PO DAILY RF: 0 bupropion HCl 150 mg tablet extended release 24 hr 150 mg PO DAILY RF: 0 docusate sodium [Colace] 100 mg capsule 100 mg PO BID Qty: 30 RF: 0 ibuprofen 600 mg tablet 600 mg PO TID PRN (Reason: pain) Qty: 90 RF: 2 cyanocobalamin (vitamin B-12) 1,000 mcg Tablet 1,000 mcg PO DAILY RF: 0 iron 50 mg iron Tablet 1 tab PO DAILY RF: 0 lisinopril 5 mg Tablet 5 mg PO DAILY RF: 0 gabapentin 300 mg Capsule 300 mg PO TID Qty: 90 RF: 0 diclofenac sodium 1 % Gel 100 g topical QID Qty: 100 RF: 0 lidocaine 5 % adhesive patch,medicated 2 patch topical DIRECTED Qty: 30 RF: 0 omeprazole 20 mg Capsule,Delayed Release(Dr/Ec) 20 mg PO BID@0730,2000 Qty: 60 RF: 0 lidocaine 5 % adhesive patch,medicated 2 patch topical DAILY Qty: 30 RF: 1 Discontinued sulfamethoxazole-trimethoprim 400-80 mg tablet 1 tab PO DAILY RF: 0 No Action ibuprofen 800 mg tablet 800 mg PO TID RF: 0 Discharge Instructions Additional Instructions: Quadriceps Discharge Instructions Activity: You may weight bear as tolerated. You should wear the knee immobilizer for any mobilization. Do not attempt at bending the knee more than a few degrees until instructed to do so by Dr. Chi. You may remove the immobilizer or open the top of the immobilizer while resting. You may apply the CryoCuff on the top of the knee. Dressing: Remove the Behzad wrap by 2 days after your surgery. You have a vacuum assisted dressing in place. This should keep blinking a green light. If another light comes on, please contact the office. It may need to be changed at least once and you should contact the office for instructions on this. This dressing should stay in place for one week. After the one week, you may remove the dressing and apply some light gauze and an BEHZAD wrap over the wound. The wound was closed with phuong. It may get wet after the initial vacuum dressing comes off. Medications: - You should take Tylenol and anti-inflammatory Ibuprofen as your primary pain control medications. - You have been prescribed a stronger pain medication tramadol for breakthrough pain, take as needed as prescribed. - You will be taking your home Pradaxa for DVT prevention - If you have constipation you should take Colace or Miralax (both over-the- counter). It takes most people 3-4 days to have a bowel movement. Follow-up: 2 weeks If you have any acute concerns or questions, please do not hesitate to contact the office at [phone]. You may contact Dr. Chi with any questions after hours through the hospital at [phone] or on his cell phone at [phone]. Referrals: Mac Chi MD [ [facility] STAFF PHYSICIAN] - Equipment/Supplies: Partial Weight Bearing Crutches and Splint Activity:: Activity as Tolerated Remove Dressings/Wound Care:: Do Not Remove Shower/Bathe:: 72 hours Diet:: As Tolerated Discharge Orders Discharge Orders: Discharge Order (Routine); Ordered 12/06/20 Ordered By: Mac Chi DS: Diagnosis Discharge Diagnosis (1) Rupture of right quadriceps muscle: Status: Acute Documented by User: Mac Chi MD 12/06/20 16:03 Discharge Plan Disposition Patient Disposition: HOME Condition: Stable Discharge Details Reason For Visit: Right Quadriceps Tendon/Arthrotomy Repair Attending Provider: Mac Chi Primary Care Provider: Tasha Wright Home Meds and New Rx's Prescriptions: New tramadol 50 mg tablet 50 mg PO Q4H PRNQty: 10 RF: 0 acetaminophen 500 mg tablet 1,000 mg PO Q8H PRN (Reason: pain) Qty: 90 RF: 3 Continued magnesium 250 mg tablet 250 mg PO DAILY RF: 0 One-A-Day Men's 50 Plus 400-20-370 mcg tablet 1 tab PO DAILY RF: 0 Pradaxa 150 mg capsule 150 mg PO BID Qty: 60 RF: 0 escitalopram oxalate [Lexapro] 20 mg tablet 20 mg PO DAILY Qty: 90 RF: 0 cholecalciferol (vitamin D3) 50 mcg (2,000 unit) capsule 50 mcg PO DAILY Qty: 90 RF: 0 finasteride 5 mg tablet 5 mg PO DAILY Qty: 90 RF: 4 tamsulosin 0.4 mg capsule 0.4 mg PO DAILY Qty: 90 RF: 4 ciprofloxacin HCl 500 mg tablet 500 mg PO BID Qty: 20 RF: 0 pramipexole 1 MG tablet 2 mg PO HS RF: 0 furosemide 40 MG tablet 1 tab PO DAILY RF: 0 bupropion HCl 150 mg tablet extended release 24 hr 150 mg PO DAILY RF: 0 docusate sodium [Colace] 100 mg capsule 100 mg PO BID Qty: 30 RF: 0 ibuprofen 600 mg tablet 600 mg PO TID PRN (Reason: pain) Qty: 90 RF: 2 cyanocobalamin (vitamin B-12) 1,000 mcg Tablet 1,000 mcg PO DAILY RF: 0 iron 50 mg iron Tablet 1 tab PO DAILY RF: 0 lisinopril 5 mg Tablet 5 mg PO DAILY RF: 0 gabapentin 300 mg Capsule 300 mg PO TID Qty: 90 RF: 0 diclofenac sodium 1 % Gel 100 g topical QID Qty: 100 RF: 0 lidocaine 5 % adhesive patch,medicated 2 patch topical DIRECTED Qty: 30 RF: 0 omeprazole 20 mg Capsule,Delayed Release(Dr/Ec) 20 mg PO BID@0730,2000 Qty: 60 RF: 0 lidocaine 5 % adhesive patch,medicated 2 patch topical DAILY Qty: 30 RF: 1 Discontinued sulfamethoxazole-trimethoprim 400-80 mg tablet 1 tab PO DAILY RF: 0 No Action ibuprofen 800 mg tablet 800 mg PO TID RF: 0 Discharge Instructions Additional Instructions: Quadriceps Discharge Instructions Activity: You may weight bear as tolerated. You should wear the knee immobilizer for any mobilization. Do not attempt at bending the knee more than a few degrees until instructed to do so by Dr. Chi. You may remove the immobilizer or open the top of the immobilizer while resting. You may apply the CryoCuff on the top of the knee. Dressing: Remove the Behzad wrap by 2 days after your surgery. You have a vacuum assisted dressing in place. This should keep blinking a green light. If another light comes on, please contact the office. It may need to be changed at least once and you should contact the office for instructions on this. This dressing should stay in place for one week. After the one week, you may remove the dressing and apply some light gauze and an BEHZAD wrap over the wound. The wound was closed with phuong. It may get wet after the initial vacuum dressing comes off. Medications: - You should take Tylenol and anti-inflammatory Ibuprofen as your primary pain control medications. - You have been prescribed a stronger pain medication tramadol for breakthrough pain, take as needed as prescribed. - You will be taking your home Pradaxa for DVT prevention - If you have constipation you should take Colace or Miralax (both o [id number]). It takes most people 3-4 days to have a bowel movement. Follow-up: 2 weeks If you have any acute concerns or questions, please do not hesitate to contact the office at [phone]. You may contact Dr. Chi with any questions after hours through the hospital at [phone] or on his cell phone at [phone]. Referrals: Mac Chi MD [ [facility] STAFF PHYSICIAN] - Equipment/Supplies: Partial Weight Bearing Crutches and Splint Activity:: Activity as Tolerated Remove Dressings/Wound Care:: Do Not Remove Shower/Bathe:: 72 hours Diet:: As Tolerated Discharge Orders Discharge Orders: Discharge Order (Routine); Ordered 12/06/20 Ordered By: Mac Chi
[2020-12-06] MEDS: Celecoxib 200 MG CAP 400 MG PO (12:56)
[2020-12-06] MEDS: Acetaminophen 500 MG TAB 1000 MG PO (12:56)
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
[2020-12-06] MEDS: Lactated Ringers 1,000 ML 80 ML IV (13:35)
--- NOTE | 2020-12-06 13:52 | W.ANESNERVE ---
Nerve Block Single Injection Procedure Date and Time Date Performed: 12/06/20 Procedure Start: 13:36 Location Where Procedure Performed Procedure Location: Day Surgery Unit Reason Performed: Postoperative Analgesia Requesting Provider: Mac Chi Timeout Performed Timeout Performed: Yes Monitoring Used ECG, Blood Pressure, SpO2 and See EMR for corresponding vital signs Sterility Sterility: Hand Hygiene, Surgical Cap, Surgical Mask, Sterile Gloves and Chlorhexidine Sedation Given During Procedure Sedation Given (Indicate Dose Given): Versed IV Dose:: 3 mg Patient Mental Status Patient Mental Status: Sedate with meaningful communication Nerve Block 1st Nerve Block: Laterality: Right Block Type: Adductor Canal Needle / Catheter Used: 100mm SonoPlex II Local Anesthetic Bolus (Indicate Dose Given): Lidocaine used for local infiltration of skin, Injected in 3-5ml increments after negative blood aspiration and Bupivacaine 0.25% Dose:: 15 ml Additives (Indicate Dose Given): None Ultrasound: Sterile probe cover and gel used Ultrasound Image Saved?: Yes Nerve Stimulator: Not Used Paresthesia: None Procedure Tolerated: No Complications Procedure Outcome: Successful Performed By: Marquise Baker Supervised By: Sandy Escobedo
[2020-12-06] MEDS: ceFAZolin 3,000 MG in Normal Saline 100 ML 200 MG IVPB (14:04)
[2020-12-06] MEDS: Bupivacaine 0.25% Pres-Free 30 ML VIAL (14:29)
[2020-12-06] MEDS: Ketorolac 30 MG/ML VIAL (14:29)
--- NOTE | 2020-12-06 16:03 | ROE_ITS ---
Date of service: 12/06/20 Time of Service: 16:03 Operative Note Operative Note DATE OF PROCEDURE: 12/06/20 PRE-OP DIAGNOSIS: Right Knee Chronic Quadriceps/Arthrotomy Rupture POST-OP DIAGNOSIS: same PROCEDURE: Right Quadriceps Reconstruction, application of Tanna vacuum-assisted dressing SURGEON: Mac Chi RESIDENT MEDICAL OFFICER: Carmencita Odell ANESTHESIA TYPE: General LMA/ETT Refer to Anesthesia Record ESTIMATED BLOOD LOSS: 50 PATHOLOGY: none sent TOURNIQUET TIME: 0 COMPLICATIONS: None Patient was transported to: PACU Patient's condition: stable Indications: I have seen Cosmo in clinic for symptoms of right knee quadriceps and arthrotomy rupture. He has exhausted nonoperative methods and was having significant limitations in daily function and desired better function and less pain with progressive worsening of strength with patella maltracking. I discussed the technical details of quadriceps/arthrotomy reconstruction/repair. I explained the risks of the procedure to include, but not limited to, bleeding, infection, pain, stiffness, fracture, damage to nerves and vessels, damage to muscles and tendons, loosening, need for repeat procedure, blood clot and cardiopulmonary demise. Despite these risks, Cosmo elected to proceed. Findings: There was a laterally subluxed patella. There was an obvious central defect from the midportion of the patella to the proximal quadriceps with a falx tendon. The tendon edges were identified and reapproximated with overlapping tissue. Muscle of the VMO had significant fatty replacement and was not healthy appearing as normal muscle. Procedure Description: Cosmo was greeted in the preoperative holding area where the correct side was identified and marked. The consent was reviewed with the patient and signed. The history and physical was updated. All questions were answered. Preoperative mediacations were administered: Acetaminophen 1000mg, Celebrex 400mg, and Gabapentin 300mg. An adductor canal block was then administered by the anesthesia team in the PACU. Cosmo was taken back to the operating room. A general anesthetic was then administered. The patient was placed into the supine position on the operating room table. A nonsterile tourniquet was placed high onto the leg but not used. Posts were placed for positioning during the procedure. All bony prominences were well padded. Prophylactic antibiotics in the form of cefazolin were administered. 1g of Tranxemic Acid was given intravenously within 30 minutes of incision. The right leg was then prepped with Chloraprep and draped in a standard fashion with impervious stockinette. A second prep with Chloraprep was performed prior to application of Iodine impregnated skin protection. A timeout to confirm correct identity, side and site, procedure, allergies, anesthesia, and medical concerns was performed. With the knee in some flexion, a midline incision was made overlying the knee utilizing the previous incision as a guide. Full thickness skin flaps were carlson sed once the extensor mechanism was encountered. These were raised medially and laterally. Any bleeding was controlled with electrocautery. Visualization was challenging as the tissue had a inflammatory and almost atrophic appearance with fatty infiltration. There is an obvious thinned central section with a palpable edge of quadriceps tendon lateral and a palpable edge medial. The incision was extended proximally to get back to normal-appearing tissue. While I was able to find some active muscle of vastus lateralis the vastus medialis was difficult to identify. The patella was subluxed laterally. I then made a central incision in the thin tissue between the 2 edges of the quadriceps tendon around the superomedial portion of patella to about the midportion of patella where the tissue seem to reconstitute itself. Using a rongeur debrided synovium from inside the knee and underneath the patella. The knee was thoroughly irrigated with irrisept chlorhexidine solution. Using a Bovie electrocautery I released some of the synovial attachments on the undersurface of the vastus medialis and vastus lateralis. The muscle was quite mobile. However, was interesting was there was no active muscle fibers appreciable for the vastus medialis. The majority the muscle seem to have fatty infiltration. Nevertheless, there was a thick ridge which was connected to the quadriceps tendon which was torn and not connected to the lateral tendon. I used a rongeur and sharp dissection to get back to healthy-appearing tissue laterally as a guide. Once this was identified we are able to basically identify anatomy I did leave some of the false tendon in place. I used mattress type sutures to reapproximate the 2 edges of the tendon overlapping the extra false tendon on top of the lateral tissue. This was done in multiple positions reapproximating the palpable edges of the tendon. This was held and in the knee was brought into 90 degrees of flexion where it was noted to be tight but still holding. There is still some persistent tilt the patella but it was tracking. Therefore I did tie these sutures and an extended position in multiple locations. I then continued to add additional mattress sutures as well as [id number] sutures along the edge to secure the overlapping portion as well as the central portion. This was once again tested at 90 degrees and noted to be holding without any significant pull-through. The knee was once again thoroughly irrigated with irrisept chlorhexidine solution. The tissues and structures about the right knee were then injected with a mixture of 0.25 bupivacaine, 50 cc, Exparel, 10 cc, and ketorolac, 30 mg. There is no significant bleeding. The deep tissues were reapproximated with 0 Vicryl followed by 2-0 Monocryl. The skin was closed with phuong. A tanna vacuum- assisted dressing was then applied to assist with fluid reduction and wound healing given his morbid obesity and chronic anticoagulation. The leg was wrapped with an Behzad wrap from foot to thigh followed by knee immobilizer and then a CryoCuff was applied. Cosmo was transferred to the hospital bed without difficulty an suffering no apparent complication. Cosmo has a good prognosis. He will be weightbearing as tolerated with a knee immobilizer. Is imperative that he keeps the leg straight for the next 6 weeks. Gentle motion is okay but nothing past 30 to 40 degrees. I will see him back in 2 weeks.
--- NOTE | 2020-12-06 16:36 | W.ANESPOSTOP ---
Postoperative Evaluation Date, Time and Location Date Performed: 12/06/20 Time Performed: 16:35 Patient Location: Day Surgery Unit Vital Signs Most Recent Imported Vital Signs: Most Recent Vital Signs Temp Pulse Resp BP Pulse Ox 36.6 C 80 16 98/69 L 97 12/06/20 16:13 12/06/20 16:13 12/06/20 16:13 12/06/20 16:13 12/06/20 16:13 Pain Score Most Recent Pain Score: Most Recent Pain Score Pain Level 0 12/06/20 16:13 Assessment Mental Status: Awake (Alert & Oriented to Patient Baseline) Airway and Respiratory Function: Patent airway with normal (patient baseline) respiratory exam Cardiovascular Function: Hemodynamically Stable Hydration Status: Adequately Hydrated Nausea & Vomiting: No Nausea or Vomiting Pain: Pt. Denies Any Pain Peripheral Nerve Block: Regional nerve block not resolved at time of post operative discharge
== END 2020-12-06 18:15 | disposition home or self-care (01) ==
PROVIDERS: PCP Family Medicine; Visit Provider Student in an Organized Health Care Education/Training Program
PROC: (CPT 27430; principal; 2020-12-06 13:45)
DX: S76.111A Strain of right quadriceps muscle, fascia and tendon, initial encounter (principal); Z96.652 Presence of left artificial knee joint; X58.XXXA Exposure to other specified factors, initial encounter
CPT/HCPCS: 27430; J0690; J1100; J1885; J2250; J2405

== ENCOUNTER 2020-12-09 10:43 | Outpatient (REF) | payer MEDICARE, SELFPAY ==
[2020-12-09 12:05] LABS: Bilirubin Negative (Negative); Blood Negative (Negative); Clarity Clear (Clear); Glucose Negative (Negative); Ketones Negative (Negative); Leukocyte Esterase Negative (Negative); Nitrite Negative (Negative); Urobilinogen 0.2 EU/dL (Up TO 0.2); pH 5.5 (5-8)
== END 2020-12-09 10:44 | disposition home or self-care (01) ==
LOC: LBN 10:43
PROVIDERS: PCP Family Medicine; Visit Provider Urology
DX: N39.0 Urinary tract infection, site not specified (principal)
CPT/HCPCS: 81003; 87086

== ENCOUNTER 2020-12-20 18:02 | Inpatient (IN) | payer OTHER, SELFPAY ==
--- NOTE | 2020-12-20 | DI.RAD_ITS ---
Exam(s) XR KNEE RT 3V AP,LAT,NATALIYA EXAM: XR KNEE RT 3V AP,LAT,NATALIYA CLINICAL HISTORY: fall on R knee, s/p quad tendon recon, r/o fx/fb. TECHNIQUE: 2D digital imaging was performed. COMPARISON: CR XR KNEE RT 1V from 04/04/2020 CR XR KNEE RT 1V from 04/04/2020 CR XR KNEE LT 3V AP,LAT,NATALIYA from 10/26/2020 FINDINGS: Prosthesis is again noted. The most significant finding is extensive soft tissue swelling anteriorly and what appears to be a puncture wound and some air-gas in the swollen soft tissues. First conside ration is for significant infection. There is also possible joint effusion. Linear lucency is seen subjacent to the tibial component. Th ere is no radiographic evidence of osteomyelitis. No patellar fracture evident. IMPRESSION: Severe soft tissue swelling tissues anterior to, above, and below the knee level with suggestion of a puncture wound and air-gas within the swollen soft tissues. First consideration is for severe infec tion. DATA REPOSITORY: RADIATION DOSE DELIVERED:
[2020-12-20 18:17] VITALS: BP 130/81; PULSE 89; RESP 18; TEMP 36.8; O2SAT 94
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
--- NOTE | 2020-12-20 20:14 | NUR.NOTE ---
Nursing Note: Right knee dressing applied. Per ED MD- Wet to dry dressing with sterile gauze, sterile saline, and two dry ABD pads. Pt expressed concerns regarding evening medications- Gabapentin, magnesium, and Miraprex. ED MD notified of evening medications.
[2020-12-20] MEDS: PIPERACILLIN/TAZO 4.5 GM in Normal Saline 100 ML IVPB (20:36)
[2020-12-20 20:39] LABS: Source Nasal/Nares
[2020-12-20 21:01] LABS: ALT 24 U/L (16-63); AST 15 U/L (15-37); Albumin 2.9 g/dL (3.4-5.0); Alkaline Phosphatase 70 U/L (46-116); Anion Gap 7.4 mmol/L (3-11); BUN 28 mg/dL (7-18); Bilirubin, Total 0.3 mg/dL (0.2-1.0); CO2 28.6 mmol/L (21.0-32.0); CREATININE 0.9 mg/dL (0.70-1.30); Calcium 8.9 mg/dL (8.5-10.1); Chloride 106 mmol/L (98-107); Glucose 132 mg/dL (74-106); Potassium 3.6 mmol/L (3.5-5.1); Sodium 142 mmol/L (136-145); Total Protein 6.7 g/dL (6.4-8.2)
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
[2020-12-20 22:19] VITALS: BP 99/67; PULSE 69; RESP 16; TEMP 36.2; O2SAT 92
[2020-12-20] MEDS: Pramipexole 0.5 MG TAB 2 MG PO (23:18)
[2020-12-20] MEDS: Gabapentin 300 MG CAP PO (23:18)
[2020-12-20] MEDS: Magnesium Oxide 400 MG TAB 200 MG PO (23:18)
[2020-12-20] MEDS: Normal Saline 1,000 ML 75 ML IV (23:19)
[2020-12-21] VITALS (13 sets, daily range): BP systolic 86–147; BP diastolic 58–102; PULSE 65–95; RESP 12–20; TEMP 36.2–37.2; O2SAT 92–97; BMI 39.4
[2020-12-21 00:22] LABS: COVID-19 PCR Negative (Negative)
[2020-12-21] MEDS: HYDROmorphone 2 MG/ML VIAL 0.5 MG IVP (00:50)
[2020-12-21] MEDS: PIPERACILLIN/TAZO 3.375 GM in Normal Saline 50 ML IVPB ×4 (01:52→21:37)
[2020-12-21] MEDS: traMADol 50 MG TAB PO (06:08)
--- NOTE | 2020-12-21 09:09 | PGE_ITS ---
Date of Service Date of service: 12/21/20 Time of Service: 09:09 Assessment and Plan Assessment and plan (1) Traumatic wound dehiscence: Status: Acute Assessment and plan: Cosmo is a 70 year old who was admitted for a traumatic partial wound dehisence with concern for secondary infection of the right knee replacement. He is NPO. We will proceed to the OR this afternoon for a ggressive I&D including polyethylene exchange and arthrotomy re-repair as indicated. All of his questions were answered. I discussed the procedure with him including the risks such as bleeding, infection, pain, stiffness, weakness, need for additional surgeries, damage to nerves and vessels, damage to muscles and tendons, blood clot. Despite these risks, he agreed to proceed. Qualifiers: Encounter type: subsequent encounter Qualified Code(s): T81.33XD - Disruption of traumatic injury wound repair, subsequent encounter Subjective Subjective Patient reports: no new complaints Interval history since last seen: Cosmo is doing well. Pain is controlled. No acute events. Exam Narrative Exam Narrative: NAD. AAOx3. Comfortable in the chair. RLE dressing c/d/i. +EHL/FHL/ADF/APF Palpable DP/PT Objective Last Vital Signs Temp 36.9 C 12/24/20 11:30 Pulse 72 12/24/20 11:30 Resp 18 12/24/20 11:30 BP 135/89 12/24/20 11:30 Pulse Ox 98 12/24/20 11:30
[2020-12-21] MEDS: buPROPion-XL 150 MG TABCR PO (09:11)
[2020-12-21] MEDS: Gabapentin 300 MG CAP PO ×2 (09:11→13:32)
[2020-12-21] MEDS: Acetaminophen 500 MG TAB 1000 MG PO ×3 (09:11→20:39)
[2020-12-21] MEDS: Pantoprazole 40 MG TABCR PO (09:11)
[2020-12-21] MEDS: Escitalopram 20 MG TAB PO (09:12)
[2020-12-21] MEDS: Omeprazole 20 MG CAPCR PO ×2 (09:12→20:40)
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
--- NOTE | 2020-12-21 09:46 | NUR.NOTE ---
Spoke with ALICIA Garcia at [phone] who suggested that RN hold all PO meds EXCEPT for: Gabapentin, Prilosec, Protonix, APAP, Wellbutrin, and Lexipro. All other scheduled medications will be held. Nursing Note:
[2020-12-21] MEDS: Normal Saline 1,000 ML 75 ML IV ×2 (13:17→18:09)
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
--- NOTE | 2020-12-21 16:32 | CHAPLAIN ---
Jeff was up in the chair when I visited. He had just finished a phone call. I introduced myself and explained my role. Jeff was pleasant, but not interested in a longer conversation. He has been in touch with family by phone.
--- NOTE | 2020-12-21 17:43 | W.ANESPOSTOP ---
Postoperative Evaluation Date, Time and Location Date Performed: 12/21/20 Time Performed: 15:20 Patient Location: Day Surgery Unit Vital Signs Most Recent Imported Vital Signs: Most Recent Vital Signs Temp Pulse Resp BP Pulse Ox 37 C 70 20 116/78 97 12/21/20 15:20 12/21/20 15:20 12/21/20 15:20 12/21/20 15:20 12/21/20 15:20 Pain Score Most Recent Pain Score: Most Recent Pain Score Pain Level 2 12/21/20 1520 Assessment Mental Status: Awake (Alert & Oriented to Patient Baseline) Airway and Respiratory Function: Patent airway with normal (patient baseline) respiratory exam Cardiovascular Function: Hemodynamically Stable Hydration Status: Adequately Hydrated Nausea & Vomiting: No Nausea or Vomiting Pain: Pain is tolerable per patient Peripheral Nerve Block: Patient did not receive a nerve block
[2020-12-21] MEDS: Bupivacaine 0.25% Pres-Free 30 ML VIAL (18:26)
[2020-12-21] MEDS: Ketorolac 30 MG/ML VIAL (18:26)
--- NOTE | 2020-12-21 19:36 | W.ANESPOSTOP ---
Postoperative Evaluation Date, Time and Location Date Performed: 12/21/20 Time Performed: 19:29 Patient Location: PACU Vital Signs Most Recent Imported Vital Signs: Most Recent Vital Signs Temp Pulse Resp BP Pulse Ox 36.2 C L 84 18 121/84 94 12/21/20 19:29 12/21/20 19:29 12/21/20 19:29 12/21/20 19:29 12/21/20 19:29 Pain Score Most Recent Pain Score: Most Recent Pain Score Pain Level 0 12/21/20 19:29 Assessment Mental Status: Awake (Alert & Oriented to Patient Baseline) Airway and Respiratory Function: Patent airway with normal (patient baseline) respiratory exam Cardiovascular Function: Hemodynamically Stable Hydration Status: Adequately Hydrated Nausea & Vomiting: No Nausea or Vomiting Pain: Pt. Denies Any Pain Peripheral Nerve Block: Patient did not receive a nerve block
[2020-12-21] MEDS: Ibuprofen 800 MG TAB PO (20:38)
[2020-12-21] MEDS: Magnesium Oxide 400 MG TAB 200 MG PO (20:39)
[2020-12-21] MEDS: rifAMPin 300 MG CAP PO (20:46)
--- NOTE | 2020-12-21 20:56 | ROE_ITS ---
Operative Note Operative Note DATE OF PROCEDURE: 12/21/20 PRE-OP DIAGNOSIS: Traumatic Wound Dehisence, Right Knee Traumatic Right Knee Arthrotomy, Right Knee Tissue Necrosis PROCEDURE: Irrigation and Debridement, Synovectomy, and Polyethylene Exchange - [SIDE] Knee SURGEON: Mac Chi ENGINEERING PROJECT MANAGER: Marley German ANESTHESIA TYPE: General LMA/ETT Refer to Anesthesia Record ESTIMATED BLOOD LOSS: 400 PATHOLOGY: none sent TOURNIQUET TIME: 62 COMPLICATIONS: None Patient was transported to: PACU Patient's condition: stable Indications: Cosmo is a 70-year-old who is status post right knee replacement. He suffered a fall in the early postoperative recovery period. During this fall he was identified to have an arthrotomy rupture which was treated conservatively at first. Unfortunately, it continued to worsen because disability and therefore he underwent a quadriceps and arthrotomy repair approxi-2 weeks ago. Yesterday he was walking out to take a picture of a bird when he tripped and fell onto a hyperflexed right knee. He landed on a gravel pad at this time with an obvious traumatic dehiscence of the inferior aspect of his wound with gravel contamination and new pain and weakness. He was seen the emergency department with the injury where I was consulted and I recommended surgical intervention. Given the rupture of the arthrotomy which was repaired 2 weeks ago and the contamination of the wound I had to assume this involve the knee joint itself and recommend a thorough irrigation debridement and to treat as if infected. I discussed the technical features of this. I also discussed the risk to include continued infection requiring further surgery or interventions, stiffness, pain, weakness, arthrotomy rerupture, retear, blood clot, damage to nerves and vessels, damage to muscle and tendons. Despite these risk, he elected to proceed. Findings: The inferior aspect of the wound which was dehisced was relatively clean without gross contamination, thankfully removed well in the emergency department. The arthrotomy was ruptured with pullout of almost all the sutures. There also was necrotic fat and soft tissue seen around the repair site proximally. It is unclear if this is representing early infection versus tissue necrosis or tissue injury from the recent surgery. However, 3 cultures were sent from the knee. An aggressive synovectomy was performed of the entire knee both extracapsular early and intra-articularly. A thorough debridement was performed along with irrigation. The polyethylene was exchanged and the arthrotomy and quadriceps defect was repaired. Procedure Description: Cosmo was greeted in the preoperative holding area where the correct side was identified and marked. The consent was reviewed with the patient and signed. The history and physical was updated. All questions were answered. Cosmo was taken back to the operating room. A general anesthestic was administered. The patient was placed into the supine position on the operating room table. Posts were placed for positioning during the procedure. All bony prominences were well padded. Prophylactic antibiotics in the form of Cefazolin were administered. The left leg was then prepped with Betadine due to the open wound and draped in a standard fashion with impervious stockinette. A timeout to confirm correct identity, side and site, procedure, allergies, anesthesia, and medical concerns was performed. With the knee in some flexion, a midline incision was made overlying the knee utilizing the previous incision and defect. Full thickness skin flaps were raised once the extensor mechanism was encountered. These were raised medially and laterally. There is an obvious defect of the quadriceps repair in the arthrotomy with a hurst of joint fluid. The joint fluid seemed somewhat cloudy. There were also chunks of fat seen in the fluid which appeared unhealthy. I don't think this represents infection but was concerning and maybe related to the recent surgery. Any bleeding was controlled with electrocautery. Medial and lateral skin flaps were raised to fully evaluate the extensor mechanism. The defect was quite obvious. The skin incision was extended proximally as well for better visualization. I also continued the arthrotomy distally and a medial patellar approach although onto the proximal tibia. There was significant inflammatory tissue and synovitis seen within the knee itself. However, no gross purulence but still once again concern for an ongoing process. An aggressive synovectomy was performed intra-articularly removing the bulk of synovium from the inside of the knee onto the anterior femur and the underside of the quadriceps and extensor mechanism. Furthermore, I also performed an aggressive debridement extra capsular layer on top of the quadriceps defect and the extensor mechanism. At the proximal portion of the wound where the initial debridement was performed from the previous surgery there was necrotic appearing tissue both muscle and fat. Once again, no gross purulence but obviously concern for this area. This was debrided aggressively. Additionally, I further release any attachment between the vastus medialis and vastus lateralis and the surrounding skin. The muscle of the vastus medialis was still very difficult to identify and showed what appeared to be some fatty replacement. The knee was then thoroughly irrigated with 3 L of normal saline under gravity flow. An additional second look was performed and showed no gross signs of necrotic tissue. At this point, I performed a medial peel of release around the tibia and flex the knee up into hyperflexion. The polyethylene was then removed. A debridement was performed around the the tibia and posteriorly. Any additional synovium in this area was resected. The periosteal and capsular tissues were then systematically injected with a periarticular cocktail consisting of 50cc 0.25% Marcaine, 30mg Ketorolac, 20cc of Exparal. Using #1 Antimicrobial PDS, the arthrotomy and quadriceps split was repaired. This was done with a pants over vest technique to overlap the tissues for maximal coverage. Inverted type mattress sutures were done to align the medial edge of the lateral tendon with the vastus medialis and tissue. Interrupted sutures were then placed for the free edge. The tissue quality still was quite good was able to hold the sutures without concern. The knee was stable up to at least 100 degrees of flexion. There is no notable gapping of the arthrotomy site. Once again, the wound was thoroughly irrigated. Deep tissues were then reapproximated with 0 PDS and 2-0 PDS. The skin was closed with phuong. A tanna dressing was applied to assist with wound closure, fluid removal, and healing. The leg was further dressed with a foot to thigh Behzad wrap followed by a long knee immobilizer. Cosmo was transferred to the hospital stretcher without difficulty an suffering no apparent complication. Cosmo has a gaurded prognosis. He'll be weightbearing as tolerated with knee imm obilizer in extension. We will continue to follow the cultures and continue antibiotics with the concern this could've been infected from the contamination from the fall or in a postsurgical fashion.
--- NOTE | 2020-12-21 21:02 | NUR.NOTE ---
Patient returned to the floor following GA with debridement and repair done to the right knee. Knee immobilizer in place to the right knee. Patient is alert, oriented in all sphere, denies having any pain
[2020-12-21] MEDS: Gabapentin 300 MG CAP 600 MG PO (21:36)
[2020-12-21] MEDS: Pramipexole 0.5 MG TAB 2 MG PO (21:36)
[2020-12-22 03:45] VITALS: BP 115/72; PULSE 80; RESP 18; TEMP 36.6; O2SAT 95
[2020-12-22] MEDS: PIPERACILLIN/TAZO 3.375 GM in Normal Saline 50 ML IVPB (04:16)
[2020-12-22 07:18] LABS: ESR 34 mm/hr (0-20)
[2020-12-22 07:20] LABS: HGB 10.7 g/dL (13.5-17.5); MCH 28.8 pg (27.0-33.0); MCHC 31.5 % (32.0-36.0); MCV 91.4 fL (80-95); MPV 8.3 fL (8.0-11.0); Platelet Count 318 10^3/uL (130-400); RBC 3.72 10^6/uL (4.36-5.78); RDW 15.9 % (11.8-14.1); RDW-SD 53.7 fL; WBC 10.03 10^3/uL (4.4-10.8)
[2020-12-22 07:43] LABS: Anion Gap 7.3 mmol/L (3-11); BUN 24 mg/dL (7-18); C-Reactive Protein 6.98 mg/dL (0.0-0.3); CO2 25.7 mmol/L (21.0-32.0); CREATININE 0.9 mg/dL (0.70-1.30); Calcium 8.5 mg/dL (8.5-10.1); Chloride 106 mmol/L (98-107); Glucose 122 mg/dL (74-106); Potassium 4.7 mmol/L (3.5-5.1); Sodium 139 mmol/L (136-145)
--- NOTE | 2020-12-22 08:50 | PDOC.CMPRO ---
- If Service Date Differs Date of service: 12/22/20 Time of Service: 08:50 Care Management Progress Note S/O:Cosmo was sitting up in a chair when CM met with him. He was very pleasant and engaged easily with CM. Cosmo's daughter Anel was also participating in the conversation via speaker phone. Cosmo stated that he is feeling very good today. He denied having any pain in his leg despite having had surgery late yesterday. Anel shared that they have been pursuing housing for Cosmo and have applied at many places. During the visit Dr. Chi came to see Cosmo. He informed him that the surgery was extensive and that he plans to treat it as though there was an infection even though he is not sure that is the case. Cosmo is on IV Metronidazole and Ceftriaxone at this toime, pending culture results. Dr. Foreman stated that he anticipates that Cosmo will need to remain in the hospital for at least a few days. He will place orders for PT today. Anel asked if Cosmo was admitted as an inpatient in case he needs rehab and CM was able to confirm that he is. A:Cosmo is a 70 year old man admitted on 12/20/20 wound surgical wound dehiscence P:Cosmo's discharge plan is unclear at this time. He may benefit from short term rehab depending on the course of his recovery. If this is not needed, Cosmo will likely be discharged home with new home health services for wound care. He will follow up with his community providers and plan of care and transport with family. CM will continue to support Cosmo and his discharge planning needs.
[2020-12-22] MEDS: Acetaminophen 500 MG TAB 1000 MG PO ×3 (08:51→20:14)
[2020-12-22 08:52] VITALS: BP 100/66; PULSE 78; RESP 18; TEMP 37.2; O2SAT 95
[2020-12-22] MEDS: Cholecalciferol (Vitamin D3) 1,000 UNIT TAB 2000 UNITS PO (08:52)
[2020-12-22] MEDS: buPROPion-XL 150 MG TABCR PO (08:52)
[2020-12-22] MEDS: Ibuprofen 800 MG TAB PO ×3 (08:52→20:14)
[2020-12-22] MEDS: Ferrous Sulfate 325 MG TAB PO (08:53)
[2020-12-22] MEDS: Furosemide 40 MG TAB PO (08:53)
[2020-12-22] MEDS: Escitalopram 20 MG TAB PO (08:54)
[2020-12-22] MEDS: Cyanocobalamin 500 MCG TAB 1000 MCG PO (08:54)
[2020-12-22] MEDS: Gabapentin 300 MG CAP PO (08:54)
[2020-12-22] MEDS: Omeprazole 20 MG CAPCR PO ×2 (08:55→20:15)
[2020-12-22] MEDS: Tamsulosin 0.4 MG CAPCR PO (08:55)
[2020-12-22] MEDS: rifAMPin 300 MG CAP PO ×2 (08:55→16:42)
[2020-12-22] MEDS: metroNIDAZOLE 500 MG TAB PO ×3 (08:56→23:42)
[2020-12-22] MEDS: Finasteride 5 MG TAB PO (08:56)
[2020-12-22] MEDS: Magnesium Oxide 400 MG TAB 200 MG PO ×2 (08:56→20:14)
[2020-12-22] MEDS: Lisinopril 5 MG TAB PO (08:56)
[2020-12-22] MEDS: cefTRIAXone 2 GM/50 ML BAG IVPB (08:57)
[2020-12-22] MEDS: Normal Saline 1,000 ML 75 ML IV (11:48)
--- NOTE | 2020-12-22 14:00 | W.DIABETESNO ---
Date of service: 12/22/20 Time of Service: 14:00 Diabetes Note NOTE: Assessement: 70yo male admitted after splitting incision site open 2 weeks s/p R knee replacement. PMH significant for numerous orthopedic concerns/surgeries, hx of TBI/altered cognition, obesity. Meds include bupropion, cefriaxon, supplemental D3/B12/Mg/Iron, escitalopram, finasteride, furosemide, gabapentin, ibuprofen, Lisinopril, flgyl, omeprazole, pantoprazole, pramipexole, rifampin, tramadol. Pt verbalizes toleration of reg/normal diet order. BMI of 39.5kg/m2 c/w stage II obesity. A1C noted 5.9% in Sep 2020 (pt states it is higher now). States he has been told he is borderline diabetic. Pt reports weight history as having ?lost 100 pounds in the last year and gained it back?. Diagnosis: Prediabetes AEB most recent A1C >5.7%. Stage II obesity AEB current BMI of 35-39.9. Food and nutrition-related knowledge deficit r/t TBI-related cognitive change AEB pt?s feedback in our conversation about carbohydrate management. Intervention: Approached pt about trialing a Dexcom CGM at discharge and following up 2 weeks after to review glycemic data at outpt. Nutrition education apt. Monitoring/Evaluation: will monitor pertinent labs, wt changes, intake. Will approach at discharge to follow up with CGM education and set up outpt visit. Shaheen Palmer NDTR ? Directory Clerk Time Spent in Nutritional Counseling and Treatment: 15 minutes
[2020-12-22 17:38] VITALS: BP 136/66; PULSE 68; RESP 18; TEMP 36.4; O2SAT 95
[2020-12-22 19:54] VITALS: BP 125/77; PULSE 73; RESP 18; TEMP 36.5; O2SAT 97
[2020-12-22] MEDS: Gabapentin 300 MG CAP 600 MG PO (21:25)
[2020-12-22] MEDS: Pramipexole 0.5 MG TAB 2 MG PO (21:26)
[2020-12-22] MEDS: traMADol 50 MG TAB PO (21:26)
--- NOTE | 2020-12-22 21:26 | W.PM.PROGNOT ---
Date of Service Date of service: 12/22/20 Time of Service: 12:28 Assessment and Plan Assessment and plan (1) Traumatic wound dehiscence: Status: Acute Qualifiers: Encounter type: subsequent encounter Qualified Code(s): T81.33XD - Disruption of traumatic injury wound repair, subsequent encounter (2) Laceration of right knee: Status: Acute Assessment and plan: Cosmo is a 70-year-old who unfortunately suffered a traumatic dehiscence of his right knee surgical wound. There is some concern for secondary infection about this wound and therefore I will treat aggressively with continued antibiotics as we await culture results. He is feeling well and doing well. He did have an elevated CRP which he has had in the past due to his multiple urinary issues but this is still high enough to be concerned for infection. Therefore, I will continue with the rifampin and ceftriaxone. We will hold his anticoagulation, dabigatran. He is weightbearing as tolerated with the knee immobilizer. I expect that he will be here for at least another day or 2 as we await these culture results to finalize antibiotic plan for discharge. I am hopeful we can pursue an oral option or, worst case, once a day intravenous. Qualifiers: Encounter type: subsequent encounter Qualified Code(s): S81.011D - Laceration without foreign body, right knee, subsequent encounter Subjective Subjective Interval history since last seen: Cosmo reports be doing well. He has no complaints of pain. He has been able to ambulate with the knee immobilizer. He denies fevers or chills. He has been wearing the knee immobilizer. Exam Narrative Exam Narrative: Sitting up comfortably in the chair. No acute distress. Dressing is clean dry and intact. Objective Last Vital Signs Temp 36.5 C 12/22/20 19:54 Pulse 73 12/22/20 19:54 Resp 18 12/22/20 19:54 BP 125/77 12/22/20 19:54 Pulse Ox 97 12/22/20 19:54 Laboratory Results - last 24 hr 12/22/20 12/22/20 12/22/20 06:18 06:18 06:18 WBC 10.03 RBC 3.72 L Hgb 10.7 L Hct 34.0 L MCV 91.4 MCH 28.8 MCHC 31.5 L RDW 15.9 H Plt Count 318 MPV 8.3 ESR 34 H Sodium 139 Potassium 4.7 D Chloride 106 Carbon Dioxide 25.7 Anion Gap 7.3 BUN 24 H Creatinine 0.9 Estimated GFR/1.73 m2 >= 60.00 Glucose 122 H Calcium 8.5 C-Reactive Protein 6.98 H
[2020-12-23] VITALS (7 sets, daily range): BP systolic 114–149; BP diastolic 62–92; PULSE 67–76; RESP 16–20; TEMP 36.1–36.8; O2SAT 96–98
[2020-12-23] MEDS: Normal Saline 1,000 ML 75 ML IV (02:42)
[2020-12-23] MEDS: Pantoprazole 40 MG TABCR PO (06:43)
[2020-12-23] MEDS: Omeprazole 20 MG CAPCR PO ×2 (06:43→20:06)
[2020-12-23] MEDS: rifAMPin 300 MG CAP PO ×2 (06:44→15:58)
[2020-12-23] MEDS: cefTRIAXone 2 GM/50 ML BAG IVPB (07:52)
[2020-12-23] MEDS: Gabapentin 300 MG CAP PO (07:53)
[2020-12-23] MEDS: Magnesium Oxide 400 MG TAB 200 MG PO ×2 (07:53→20:07)
[2020-12-23] MEDS: buPROPion-XL 150 MG TABCR PO (07:53)
[2020-12-23] MEDS: Cholecalciferol (Vitamin D3) 1,000 UNIT TAB 2000 UNITS PO (07:53)
[2020-12-23] MEDS: Ibuprofen 800 MG TAB PO ×3 (07:53→20:06)
[2020-12-23] MEDS: Lisinopril 5 MG TAB PO (07:54)
[2020-12-23] MEDS: Acetaminophen 500 MG TAB 1000 MG PO ×3 (07:54→20:06)
[2020-12-23] MEDS: Tamsulosin 0.4 MG CAPCR PO (07:55)
[2020-12-23] MEDS: Finasteride 5 MG TAB PO (07:55)
[2020-12-23] MEDS: Furosemide 40 MG TAB PO (07:55)
[2020-12-23] MEDS: Cyanocobalamin 500 MCG TAB 1000 MCG PO (07:55)
[2020-12-23] MEDS: metroNIDAZOLE 500 MG TAB PO ×3 (07:55→22:55)
[2020-12-23] MEDS: Escitalopram 20 MG TAB PO (07:55)
[2020-12-23] MEDS: Ferrous Sulfate 325 MG TAB PO (07:56)
--- NOTE | 2020-12-23 10:31 | PDOC.CMPRO ---
- If Service Date Differs Date of service: 12/23/20 Time of Service: 12:05 Care Management Progress Note S/O: Anticipate Cosmo will remain at [facility] through the weekend at this time. Anticipate he will discharge to SNF, referrals to be faxed to chosen facilities. CM continues to follow. A:Cosmo is a 70 year old man admitted on 12/20/20 wound surgical wound dehiscence P: Cosmo's discharge plan is unclear at this time. He may benefit from short term rehab depending on the course of his recovery. If this is not needed, Cosmo will likely be discharged home with new home health services for wound care. He will follow up with his community providers and plan of care and transport with family. CM will continue to support Cosmo and his discharge planning needs.
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
[2020-12-23] MEDS: Pramipexole 0.5 MG TAB 2 MG PO (18:35)
[2020-12-23] MEDS: Gabapentin 300 MG CAP 600 MG PO (18:35)
--- NOTE | 2020-12-23 21:51 | W.PM.PROGNOT ---
Date of Service Date of service: 12/23/20 Time of Service: 15:26 Assessment and Plan Assessment and plan (1) Traumatic wound dehiscence: Status: Acute Qualifiers: Encounter type: subsequent encounter Qualified Code(s): T81.33XD - Disruption of traumatic injury wound repair, subsequent encounter (2) Rupture of right quadriceps muscle: Status: Acute Qualifiers: Encounter type: subsequent encounter Qualified Code(s): S76.111D - Strain of right quadriceps muscle, fascia and tendon, subsequent encounter (3) Laceration of right knee: Status: Acute Assessment and plan: Cosmo is a 70-year-old who is status post irrigation debridement, secondary laceration closure, and quadriceps repair of his right knee. He is doing well. He still has limitations with his ambulation. He is using the knee immobilizer for weightbearing purposes. I am still waiting on the cultures. My suspicion is that this was a contaminated wound but not grossly infected wound. Therefore, I would likely treat with oral antibiotics assuming the culture does not grow anything positive. I will trend his CRP as well. IV antibiotics may be considered if this seems to be more of an acute infection but based on the early culture results I think it is a contaminated wound. I discussed discharge planning with Cosmo. I do want to keep him at least one other night to establish antibiotic regimen. He would benefit from rehabilitation. We will discuss this with resident care technician to see what options are available. Qualifiers: Encounter type: subsequent encounter Qualified Code(s): S81.011D - Laceration without foreign body, right knee, subsequent encounter Subjective Subjective Interval history since last seen: Yuki reports be doing well. He has no fevers no chills. He reports pain is well controlled. He has been able to ambulate with some minimal assistance using a knee immobilizer. He is hoping to work physical therapy. He has been tolerating the antibiotics well. Cultures are still pending but gram-positive cocci growing from the broth of 2 of the cultures. Exam Narrative Exam Narrative: Walking with a knee immobilizer. Comfortable. No acute distress. Knee immobilizer in place. Agnieszka dressing working. No drainage on the dressing. Objective Last Vital Signs Temp 36.1 C L 12/23/20 19:02 Pulse 74 12/23/20 19:02 Resp 20 12/23/20 19:02 BP 141/86 H 12/23/20 19:02 Pulse Ox 97 12/23/20 19:02
[2020-12-24 03:10] VITALS: BP 125/84; PULSE 61; RESP 20; TEMP 36.4; O2SAT 94
[2020-12-24] MEDS: rifAMPin 300 MG CAP PO (06:48)
[2020-12-24] MEDS: Omeprazole 20 MG CAPCR PO (06:48)
[2020-12-24 07:05] VITALS: BP 118/83; PULSE 70; RESP 18; TEMP 36.5; O2SAT 94
[2020-12-24 07:44] LABS: HCT 34.8 % (40.0-50.0); MCHC 31.6 % (32.0-36.0); MCV 91.8 fL (80-95); MPV 8.3 fL (8.0-11.0); Platelet Count 302 10^3/uL (130-400); RBC 3.79 10^6/uL (4.36-5.78); RDW 16.1 % (11.8-14.1); RDW-SD 54.5 fL; WBC 5.76 10^3/uL (4.4-10.8)
[2020-12-24 08:10] LABS: Anion Gap 5.9 mmol/L (3-11); BUN 20 mg/dL (7-18); CO2 29.1 mmol/L (21.0-32.0); CREATININE 0.8 mg/dL (0.70-1.30); Calcium 9.5 mg/dL (8.5-10.1); Chloride 107 mmol/L (98-107); Glucose 103 mg/dL (74-106); Potassium 4.3 mmol/L (3.5-5.1); Sodium 142 mmol/L (136-145)
[2020-12-24] MEDS: Escitalopram 20 MG TAB PO (08:17)
[2020-12-24] MEDS: Cholecalciferol (Vitamin D3) 1,000 UNIT TAB 2000 UNITS PO (08:17)
[2020-12-24] MEDS: Acetaminophen 500 MG TAB 1000 MG PO ×2 (08:17→13:39)
[2020-12-24] MEDS: Finasteride 5 MG TAB PO (08:17)
[2020-12-24] MEDS: Lisinopril 5 MG TAB PO (08:17)
[2020-12-24] MEDS: Gabapentin 300 MG CAP PO (08:17)
[2020-12-24] MEDS: Cyanocobalamin 500 MCG TAB 1000 MCG PO (08:18)
[2020-12-24] MEDS: Tamsulosin 0.4 MG CAPCR PO (08:18)
[2020-12-24] MEDS: Ferrous Sulfate 325 MG TAB PO (08:18)
[2020-12-24] MEDS: metroNIDAZOLE 500 MG TAB PO (08:18)
[2020-12-24] MEDS: Magnesium Oxide 400 MG TAB 200 MG PO (08:18)
[2020-12-24] MEDS: Ibuprofen 800 MG TAB PO ×2 (08:18→13:39)
[2020-12-24] MEDS: Furosemide 40 MG TAB PO (08:19)
[2020-12-24] MEDS: cefTRIAXone 2 GM/50 ML BAG IVPB (08:21)
[2020-12-24] MEDS: Normal Saline Flush 10 ML SYR IVP (08:38)
[2020-12-24] MEDS: buPROPion-XL 150 MG TABCR PO (08:38)
[2020-12-24] MEDS: Normal Saline 500 ML 30 ML IVPB (08:39)
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
[2020-12-24 11:30] VITALS: BP 135/89; PULSE 72; RESP 18; TEMP 36.9; O2SAT 98
--- NOTE | 2020-12-24 11:59 | PT.INTREAT ---
Date of service: 12/24/20 Time of Service: 11:15 PT Notes Visit Reasons: Right surgical wound dehisence Inpatient Physical Therapy Treatment Note 12/24/2020 [facility] Date: Stated he is planning on going home this afternoon. Feels safe to return home. PRECAUTIONS:WBAT on right LE with KI inplace SUBJECTIVE: Feels comfortable with ambulation on flat surfaces and stairs. Has hand rails on his camper entrance and they work well. OBJECTIVE: PAIN: No reports of pain. BED MOBILITY/TRANSFERS Sit-stand: SBG Stand-sit: SBG GAIT Assistive Device: FWW Weight bearing: WBAT with knee brace in place Assist: SBG Distance: 260' x 2 THEREX: Reviewed his independent exercises of ankle pumps, quad sets and glut sets for 15 reps each every 2 hours. STAIRS: Able to ambulate up / down 3 -4 inch and 2 - 6 inch steps, step two gait pattern with handrail. SBG on one given. Indicated he prefers to ambulate down steps backward, feels safer. ASSESSMENT: Tolerated today's session well with good safety displayed with ambulation. Good understanding of HEP. PLAN: To be DC'ed home today and will begin out pt PT services at [facility] in 2-3 weeks per surgeon's orders. TREATMENT CODE/TIME: []
--- NOTE | 2020-12-24 16:45 | PDOC.CMDIS ---
LACE Index Scoring Tool - Questions: Length of Stay (in days): 4 - 6 Acuity (Admit via E.D.?): Yes E.D. Visits: 4 - Answers: Total Score: 11 Risk of Readmission: High Risk Care Management Discharge Reason for Hospitalization: Right surgical wound dehiscence Discharge Plan: Cosmo will discharge to home, per his wishes. He will follow up outpatient for PT, per MD. He will follow up with his PCP and plan of care as prescribed. He will transport via private vehicle with family. Patient/Family Education Needs: Review discharge instructions, discuss Ask Me Three.
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
== END 2020-12-24 13:58 | disposition home or self-care (01) | DRG 908 ==
LOC: ER 21:39 → MS 22:09
PROVIDERS: Admitting Provider Student in an Organized Health Care Education/Training Program; Emergency Provider Physician Assistant; PCP Family Medicine; Visit Provider Student in an Organized Health Care Education/Training Program
PROC: 0SPC0JZ Removal of Synthetic Substitute from Right Knee Joint, Open Approach (ICD-10-PCS; CPT 27446; principal; 2020-12-21 14:30)
DX: T81.33XA Disruption of traumatic injury wound repair, initial encounter (principal); I48.20 Chronic atrial fibrillation, unspecified; M00.9 Pyogenic arthritis, unspecified; W01.0XXA Fall on same level from slipping, tripping and stumbling without subsequent striking against object, initial encounter; F17.220 Nicotine dependence, chewing tobacco, uncomplicated; M1A.9XX0 Chronic gout, unspecified, without tophus (tophi); F41.8 Other specified anxiety disorders; E78.5 Hyperlipidemia, unspecified; I10 Essential (primary) hypertension; R33.9 Retention of urine, unspecified; F12.90 Cannabis use, unspecified, uncomplicated; F06.8 Other specified mental disorders due to known physiological condition; Z79.01 Long term (current) use of anticoagulants; E66.01 Morbid (severe) obesity due to excess calories; Z68.39 Body mass index [BMI] 39.0-39.9, adult; G47.33 Obstructive sleep apnea (adult) (pediatric); G25.81 Restless legs syndrome; Z87.440 Personal history of urinary (tract) infections; Z20.822 Contact with and (suspected) exposure to COVID-19
CPT/HCPCS: 27446; 27430; 36415; 73562; 80048; 80053; 85027; 85652; 87077; 87635; 96365; 97162; 97530; 99285; 86140; 87070; 87075; 87186; 87205; J1100; J1885; J2001; J2405; J2543; J2704; J3010

== ENCOUNTER 2020-12-25 14:02 | Inpatient (IN) | payer OTHER, SELFPAY ==
[2020-12-25] VITALS (12 sets, daily range): BP systolic 103–147; BP diastolic 62–96; PULSE 67–89; RESP 16–22; TEMP 35.6–37.2; O2SAT 19–99; BMI 41.4
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
[2020-12-25] MEDS: fentaNYL 100 MCG/2 ML VIAL IVP (14:51)
[2020-12-25] MEDS: Ketorolac 15 MG/ML VIAL IVP (15:14)
[2020-12-25] MEDS: VANCOMYCIN/WATER (PEG) 2 GM/400 ML BAG IVPB (15:15)
[2020-12-25] MEDS: Normal Saline Flush 10 ML SYR IVP (15:15)
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
[2020-12-25 15:54] LABS: Abs Immature Grans 0.03 10^3/uL (0.0-0.06); Absolute Basophil Count 0.04 10^3/uL (0.0-0.2); Absolute Eosinophil Count 0.38 10^3/uL (0.0-0.7); Absolute Lymphocyte Count 1.38 10^3/uL (1.2-3.4); Absolute Monocyte Count 0.57 10^3/uL (0.1-0.8); Absolute Neutrophil Count 6.26 10^3/uL (1.2-6.7); Basophils % 0.5; Eosinophils % 4.4; HCT 32.4 % (40.0-50.0); HGB 10.5 g/dL (13.5-17.5); Immature Grans % 0.3; Lymphocytes % 15.9; MCH 29.2 pg (27.0-33.0); MCHC 32.4 % (32.0-36.0); MPV 8.2 fL (8.0-11.0); Monocytes % 6.6; Neutrophils % 72.3; Nucleated RBC 0 %; Platelet Count 311 10^3/uL (130-400); RDW 15.8 % (11.8-14.1); RDW-SD 52.2 fL; WBC 8.66 10^3/uL (4.4-10.8)
[2020-12-25 15:59] LABS: ESR 33 mm/hr (0-20)
[2020-12-25 16:04] LABS: C-Reactive Protein 3.36 mg/dL (0.0-0.3)
[2020-12-25 16:07] LABS: INR 1.1 (0.9-1.1); Prothrombin Time 10.9 sec (9.3-11.0)
[2020-12-25 16:08] LABS: ALT 52 U/L (16-63); AST 39 U/L (15-37); Albumin 2.8 g/dL (3.4-5.0); Alkaline Phosphatase 61 U/L (46-116); Bilirubin, Total 0.3 mg/dL (0.2-1.0); CREATININE 0.7 mg/dL (0.70-1.30); Calcium 9.1 mg/dL (8.5-10.1); Chloride 109 mmol/L (98-107); Glucose 105 mg/dL (74-106); Potassium 4.4 mmol/L (3.5-5.1); Sodium 144 mmol/L (136-145); Total Protein 6.3 g/dL (6.4-8.2)
[2020-12-25 16:09] LABS: BUN 32 mg/dL (7-18)
[2020-12-25] MEDS: Lactated Ringers 1,000 ML 30 ML IV (16:17)
[2020-12-25 16:21] LABS: COVID-19 PCR Negative (Negative); Source Nasal/Nares
[2020-12-25] MEDS: Bupivacaine 0.25% Pres-Free 30 ML VIAL (17:25)
--- NOTE | 2020-12-25 19:59 | ROE_ITS ---
Date of service: 12/25/20 Time of Service: 17:59 Operative Note Operative Note DATE OF PROCEDURE: 12/25/20 PRE-OP DIAGNOSIS: Right Knee Hemarthrosis POST-OP DIAGNOSIS: other (Right Knee Hematoma with Active Bleeding) PROCEDURE: Irrigation and Debridement of Right Knee Wound, Clot/Hematoma Evacuation, Bleeding Vessel Identification and Cauterization SURGEON: Mac Chi SERVER MANAGER: Geovanna Angulo ANESTHESIA TYPE: General LMA/ETT Refer to Anesthesia Record ESTIMATED BLOOD LOSS: 50 PATHOLOGY: other (Two cultures were sent from within the knee joint through a defect in the VMO) TOURNIQUET TIME: 0 COMPLICATIONS: None Patient was transported to: PACU Patient's condition: stable Indications: Cosmo is a 70yo male who was discharged from the hospital yesterday after I&D, polyethylene exchange and arthrotomy repair of the right knee following a fall with arthrotomy rupture and wound dehiscence. He was doing very well on discharge and early on the morning today. However, he developed acute onset of pain and worsening swelling of the right knee. Due to the increase in pain and the inability to bear weight, he called EMS and was taken to the Emergency Department. I was consulted and evaluated him which demonstrated a taut right knee with oozing from the surgical site. I attempted aspiration in the ED with ultrasound guidance but was only able to aspirate a few cc's of blood. Given his distress, pain, and significant swelling, I recommended opening of the surgical site, decompression of the hematoma, bleeding identification with cauterization/ligation, and irrigation and debridement as indicated. I reviewed the risks of the procedure to include continued or recurrent bleeding, pain, stiffness, infection, wound healing difficulties, blood clot. After discussing this and reviewing the risks, he agrees to proceed. Findings: There was a large clotted hematoma under the incision and the skin of the knee in most of the space created from the recent surgery. The arthrotomy was intact and there was a bleeding vessel (arterial) from the lateral side of the knee just distal to the edge of the vastus lateralis. No gross signs of infection. I did take one additional set of cultures from a defect in the VMO. The bleeding vessel was cauterized in multiple locations and observed to be dry. Procedure Description: Cosmo was greeted in the preoperative holding area after initially being seen in the ED. The consent was reviewed with the patient and signed there in the Emergency Department. Cosmo was taken back to the operating room. A general anesthestic was administered. The patient was placed into the supine position on the operating room table. Posts were placed for positioning during the procedure. All bony prominences were well padded. Prophylactic antibiotics in the form of Vancomycin were administered. The right leg was then prepped with Chloraprep and draped in a standard fashion. A timeout to confirm correct identity, side and site, procedure, allergies, anesthesia, and medical concerns was performed. The phuong were removed. The midline incision was opened using a knife to cut the deep sutures and early healing. Immediatley, there was thick clot encountered. This was removed in whole. It took up the majority of the space under the skin an on top of the extensor mechanism. With the wound fully opened, the clot was completely removed. Irrigation was used to remove any remnant clot and lap pads were used to clean the knee. At this point, there was brisk bleeding seen from the lateral side of the knee, just distal to the inferi or edge of the vastus lateralis. Ths area looked to be associated with part of the lateral relaxation of the lateral patellar retinaculum. This was cauterized in multiple locations. No tourniquet was used and the knee was inspected and evaluated for any recurrent bleeding and there was none. There was no defect of the arthrotomy except for a defect in some of the muscle fibers of the vastus me dialis. Two cultures were taken from the intraarticular portion of the knee. I then irrigated the intra-articular portion with 3L of normal saline. There was no purulence. There was no bleeding or clot from within the knee. The defect in the VMO was then closed with #1 PDS. I then irrigated the space above the extensor mechanism along with the skin and subcutaneous tissues with 3L of normal saline. Once this was complete there was a clean wound without any signs of necrosis or purulence. The knee was then injected with 0.25% Bupivacaine. Deep tissues were then reapproximated with 0 PDS and 2-0 PDS. The skin was closed with interrupted 2-0 Prolene. The wound was then dressed with Xeroform, 4x4 Gauze, ABD, Kerlix, and SEBASTIAN wrap. Knee Immobilizer was applied. Cosmo was transferred to the hospital stretcher without difficulty an suffering no apparent complication. Cosmo has a gaurded prognosis. Aspirin 81mg BID will be used for DVT prophylaxis. Cultures will be followed. He will be WBAT with a knee immobilizer.
[2020-12-25] MEDS: Pramipexole 0.5 MG TAB 2 MG PO (20:14)
[2020-12-25] MEDS: Acetaminophen 500 MG TAB 1000 MG PO (20:15)
[2020-12-25] MEDS: Gabapentin 300 MG CAP 600 MG PO (20:15)
[2020-12-25] MEDS: Omeprazole 20 MG CAPCR PO (20:16)
--- NOTE | 2020-12-25 20:42 | W.ANESPOSTOP ---
Postoperative Evaluation Date, Time and Location Date Performed: 12/25/20 Time Performed: 20:01 Patient Location: Med/Surg Vital Signs Most Recent Imported Vital Signs: Most Recent Vital Signs Temp Pulse Resp BP Pulse Ox 36.4 C L 73 19 121/77 93 12/25/20 20:00 12/25/20 20:00 12/25/20 20:00 12/25/20 20:00 12/25/20 20:00 Pain Score Most Recent Pain Score: Most Recent Pain Score Pain Level [Right Knee] 9 12/25/20 14:10 Pain Level 0 12/25/20 19:20 Assessment Mental Status: Awake (Alert & Oriented to Patient Baseline) Airway and Respiratory Function: Patent airway with normal (patient baseline) respiratory exam Cardiovascular Function: Hemodynamically Stable Hydration Status: Adequately Hydrated Nausea & Vomiting: No Nausea or Vomiting Pain: Pt. Denies Any Pain Peripheral Nerve Block: Patient did not receive a nerve block
[2020-12-26] MEDS: VANCOMYCIN 1,000 MG in Normal Saline 250 ML 166.6666 MG IVPB (00:33)
[2020-12-26 03:25] VITALS: BP 97/57; PULSE 71; RESP 19; TEMP 36.4; O2SAT 95
[2020-12-26 07:14] VITALS: BP 104/66; PULSE 83; RESP 18; TEMP 37.1; O2SAT 95
[2020-12-26 07:26] LABS: HCT 31.4 % (40.0-50.0); HGB 9.9 g/dL (13.5-17.5); MCH 28.9 pg (27.0-33.0); MCHC 31.5 % (32.0-36.0); MCV 91.5 fL (80-95); MPV 8.3 fL (8.0-11.0); Platelet Count 312 10^3/uL (130-400); RBC 3.43 10^6/uL (4.36-5.78); RDW 16.2 % (11.8-14.1); RDW-SD 54.2 fL; WBC 8.07 10^3/uL (4.4-10.8)
[2020-12-26] MEDS: Cholecalciferol (Vitamin D3) 1,000 UNIT TAB 2000 UNITS PO (08:16)
[2020-12-26] MEDS: Tamsulosin 0.4 MG CAPCR PO (08:16)
[2020-12-26] MEDS: buPROPion-XL 150 MG TABCR PO (08:16)
[2020-12-26] MEDS: Furosemide 40 MG TAB PO (08:16)
[2020-12-26] MEDS: Lisinopril 5 MG TAB PO (08:16)
[2020-12-26] MEDS: Escitalopram 20 MG TAB PO (08:16)
[2020-12-26] MEDS: Gabapentin 300 MG CAP PO (08:16)
[2020-12-26] MEDS: Omeprazole 20 MG CAPCR PO ×2 (08:16→19:59)
[2020-12-26] MEDS: Acetaminophen 500 MG TAB 1000 MG PO ×3 (08:17→19:59)
[2020-12-26] MEDS: Finasteride 5 MG TAB PO (08:17)
[2020-12-26] MEDS: Cyanocobalamin 500 MCG TAB 1000 MCG PO (08:17)
[2020-12-26] MEDS: VANCOMYCIN/WATER (PEG) 1 GM/200 ML BAG IVPB ×2 (08:18→20:37)
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
[2020-12-26 11:34] VITALS: BP 103/51; PULSE 82; RESP 18; TEMP 36.9; O2SAT 98
[2020-12-26 16:03] VITALS: BP 100/63; PULSE 78; RESP 18; TEMP 36.4; O2SAT 94
[2020-12-26] MEDS: Ketorolac 15 MG/ML VIAL IVP (17:10)
[2020-12-26] MEDS: Normal Saline Flush 10 ML SYR IVP ×2 (17:10→20:00)
[2020-12-26 19:15] VITALS: BP 133/87; PULSE 98; RESP 16; TEMP 36.9; O2SAT 95
--- NOTE | 2020-12-26 19:51 | PGE_ITS ---
Date of Service Date of service: 12/26/20 Time of Service: 12:51 Assessment and Plan Assessment and plan (1) Hemarthrosis, right knee: Status: Acute Assessment and plan: Cosmo is dong well. No recurrence of the bleeding in the knee. Continue ASA 81mg BID but hold on Pradaxa. (2) Laceration of right knee: Status: Acute Assessment and plan: Knee is s/p I&D and poly exchange. The cultures from that first procedure on 12/21 are growing staph epidermidis. Arthrotomy is now repaired. He is WBAT with a knee immobilizer. Qualifiers: Encounter type: subsequent encounter Qualified Code(s): S81.011D - Laceration without foreign body, right knee, subsequent encounter (3) Infection of total right knee replacement: Status: Acute Assessment and plan: Cosmo is a 70-year-old who underwent surgery after dehiscence of the wound of his right knee. Culture swabs taken at the time of the surgery were negative at first but now returned positive. Given that now all 3 initial cultures are positive, 1 from the actual swab and 2 from the broth, this has to be considered real and not a contaminant. Fortunately, this is a difficult organism to treat, staph epidermidis. I reviewed the case with a colleague in infectious disease at [facility], Dr. Oviedo. He agreed that treatment should ensue. Given that his bioburden was very low with a scant growth only out of the broth and to an plate in 1 with low CRP and relative terms, is might be able to be treated with a short course of IV antibiotics and then a longer course of oral antibiotics. She agrees with rifampin given the Alcock organism and retained hardware. Vancomycin or daptomycin would be recommended for intravenous treatment and then transition to doxycycline after 2 to 6 weeks based on clinical exam and inflammatory markers. Thus, I will work on transitioning back to daptomycin which would be a once a day medication without the need to check peaks and troughs. This will allow him to consider receiving antibiotics through the infusion room or at home. I will thus discussed this with the occasional caregiver team to see what her options are. Qualifiers: Encounter type: sequela Qualified Code(s): T84.53XS - Infection and inflammatory reaction due to internal right knee prosthesis, sequela Subjective Subjective Interval history since last seen: Cosmo is doing well. He has been able to mobilize with nursing with the knee immobilizer. No fever or chills. No CP or SOB. Cultures from the most recent procedure are negative. All previous cultures are now growing staph epidermidis. Exam Narrative Exam Narrative: Sitting up in the chair. NAD. AAOx3. RLE dressing c/d/i. Knee immobilizer in place. +ADF/APF/EHL/FHL. Objective Last Vital Signs Temp 36.9 C 12/26/20 19:15 Pulse 98 H 12/26/20 19:15 Resp 16 12/26/20 19:15 BP 133/87 12/26/20 19:15 Pulse Ox 95 12/26/20 19:15 Laboratory Results - last 24 hr 12/26/20 06:38 WBC 8.07 RBC 3.43 L Hgb 9.9 L Hct 31.4 L MCV 91.5 MCH 28.9 MCHC 31.5 L RDW 16.2 H Plt Count 312 MPV 8.3
[2020-12-26] MEDS: Pramipexole 0.5 MG TAB 2 MG PO (19:58)
[2020-12-26] MEDS: Gabapentin 300 MG CAP 600 MG PO (19:59)
[2020-12-26] MEDS: Aspirin E.C. 81 MG TABEC PO ×2 (19:59→20:00)
[2020-12-26] MEDS: rifAMPin 300 MG CAP PO (19:59)
[2020-12-26 23:40] VITALS: BP 108/73; PULSE 79; RESP 17; TEMP 36.6; O2SAT 96
[2020-12-27 03:10] VITALS: BP 123/84; PULSE 68; RESP 20; TEMP 36.5; O2SAT 96
[2020-12-27 07:28] VITALS: BP 115/73; PULSE 73; RESP 18; TEMP 36.3; O2SAT 98
[2020-12-27 07:37] LABS: Vancomycin, Trough 13.6 ug/mL (10.0-20.0)
[2020-12-27 07:51] LABS: CREATININE 0.8 mg/dL (0.70-1.30)
[2020-12-27] MEDS: Furosemide 40 MG TAB PO (08:17)
[2020-12-27] MEDS: Lisinopril 5 MG TAB PO (08:17)
[2020-12-27] MEDS: Omeprazole 20 MG CAPCR PO ×2 (08:17→19:48)
[2020-12-27] MEDS: rifAMPin 300 MG CAP PO ×2 (08:17→19:49)
[2020-12-27] MEDS: buPROPion-XL 150 MG TABCR PO (08:17)
[2020-12-27] MEDS: Aspirin E.C. 81 MG TABEC PO ×2 (08:17→19:49)
[2020-12-27] MEDS: Escitalopram 20 MG TAB PO (08:17)
[2020-12-27] MEDS: Cyanocobalamin 500 MCG TAB 1000 MCG PO (08:17)
[2020-12-27] MEDS: Cholecalciferol (Vitamin D3) 1,000 UNIT TAB 2000 UNITS PO (08:18)
[2020-12-27] MEDS: Gabapentin 300 MG CAP PO (08:18)
[2020-12-27] MEDS: Tamsulosin 0.4 MG CAPCR PO (08:18)
[2020-12-27] MEDS: Finasteride 5 MG TAB PO (08:18)
[2020-12-27] MEDS: Ketorolac 15 MG/ML VIAL IVP (08:42)
[2020-12-27] MEDS: Normal Saline Flush 10 ML SYR IVP ×3 (08:47→19:49)
[2020-12-27 09:18] LABS: C-Reactive Protein 4.37 mg/dL (0.0-0.3)
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
[2020-12-27 11:16] VITALS: BP 114/69; PULSE 76; RESP 18; TEMP 36.1; O2SAT 96
[2020-12-27] MEDS: Ibuprofen 800 MG TAB PO ×2 (14:14→22:18)
[2020-12-27 15:46] VITALS: BP 116/72; PULSE 83; RESP 18; TEMP 37.2; O2SAT 97
--- NOTE | 2020-12-27 17:13 | W.PM.PROGNOT ---
Date of Service Date of service: 12/27/20 Time of Service: 17:02 Assessment and Plan Assessment and plan (1) Infection of total right knee replacement: Status: Acute Assessment and plan: Cosmo is doing well postop day #2 from hematoma evacuation. His culture from this procedure is still negative. All 3 cultures from the initial procedure on the third have grown positive staph epidermidis. He was switched to daptomycin today which he will be able to be discharged home with. He was able to work with physical therapy and cleared for independent ambulation. He is tolerating the immobilizer. He has had no drainage or issues with the dressing. He does have some mild GI upset from the medications but is tolerating a regular diet. We will likely administer antibiotics in the morning and then discharge to home tomorrow. Qualifiers: Encounter type: sequela Qualified Code(s): T84.53XS - Infection and inflammatory reaction due to internal right knee prosthesis, sequela Subjective Subjective Patient reports: no new complaints, feels better and tolerating a regular diet; denies shortness of breath and fever Interval history since last seen: Started on Daptomycin at 750mg daily. Worked with PT. Objective Last Vital Signs Temp 37.2 C 12/27/20 15:46 Pulse 83 12/27/20 15:46 Resp 18 12/27/20 15:46 BP 116/72 12/27/20 15:46 Pulse Ox 97 12/27/20 15:46 Laboratory Results - last 24 hr 12/27/20 12/27/20 12/27/20 06:59 06:59 06:59 Creatinine 0.8 Estimated GFR/1.73 m2 >= 60.00 C-Reactive Protein 4.37 H Vancomycin Trough 13.6
--- NOTE | 2020-12-27 17:55 | CHAPLAIN ---
Cosmo was sitting up in his chair when I visited. He was polite, but not interested in further conversation. I 'll check in another time.
--- NOTE | 2020-12-27 18:38 | PDOC.CMPRO ---
- If Service Date Differs Date of service: 12/27/20 Time of Service: 18:38 Care Management Progress Note S/O: Cosmo was sitting up in bed when CM met with him. Per PT, he is moving independently in his room, and is able to walk the halls with supervision. MD stated that he will have a two week course of antibiotics, CM discussed options for this course. Cosmo decided to return to [facility] daily for his antibiotic therapy at the infusion room. He stated that he has done this previously, and enjoyed being able to come and go. He declined home IV infusion as well as SWB. Cosmo's daughter, Anel, was on the phone during this conversation. CM answered any questions regarding this plan. Cosmo would prefer if his infusions are around 9-10am daily. CM informed MD of Cosmo's discharge plan. He will have tomorrow's IV antibiotics, then discharge with family support. CM will continue to follow. A: Cosmo is a 70 year old male amitted to [facility] on 12/25/20 for R knee hemathosis and periprosthetic infection. P: Cosmo will return home once he is medically cleared. He will return to the infusion room daily to complete his two week antibiotic course. He will transport via private vehicle. He will follow up with his PCP and discharge plan of care. CM will continue to follow.
[2020-12-27 19:22] VITALS: BP 123/73; PULSE 75; RESP 18; TEMP 36.5; O2SAT 97
[2020-12-27] MEDS: Acetaminophen 500 MG TAB 1000 MG PO (19:48)
[2020-12-27] MEDS: Gabapentin 300 MG CAP 600 MG PO (19:49)
[2020-12-27] MEDS: Pramipexole 0.5 MG TAB 2 MG PO (19:49)
[2020-12-27 23:44] VITALS: BP 103/66; PULSE 77; RESP 18; TEMP 36.5; O2SAT 95
[2020-12-28 03:17] VITALS: BP 123/73; PULSE 75; RESP 18; TEMP 36.5; O2SAT 93
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
[2020-12-28] MEDS: Cholecalciferol (Vitamin D3) 1,000 UNIT TAB 2000 UNITS PO (07:44)
[2020-12-28] MEDS: Lisinopril 5 MG TAB PO (07:44)
[2020-12-28] MEDS: Furosemide 40 MG TAB PO (07:44)
[2020-12-28] MEDS: Ibuprofen 800 MG TAB PO (07:44)
[2020-12-28] MEDS: Escitalopram 20 MG TAB PO (07:44)
[2020-12-28] MEDS: Omeprazole 20 MG CAPCR PO (07:44)
[2020-12-28] MEDS: Gabapentin 300 MG CAP PO (07:45)
[2020-12-28] MEDS: Aspirin E.C. 81 MG TABEC PO (07:45)
[2020-12-28] MEDS: Finasteride 5 MG TAB PO (07:45)
[2020-12-28] MEDS: rifAMPin 300 MG CAP PO (07:45)
[2020-12-28] MEDS: buPROPion-XL 150 MG TABCR PO (07:45)
[2020-12-28] MEDS: Tamsulosin 0.4 MG CAPCR PO (07:45)
[2020-12-28] MEDS: Cyanocobalamin 500 MCG TAB 1000 MCG PO (07:45)
--- NOTE | 2020-12-28 14:37 | PT.INTREAT ---
Date of service: 12/28/20 Time of Service: 11:19 PT Notes Visit Reasons: R Knee Hemarthosis and Periprosthetic Infection 12/28/2020 Issued and reviewed a HEP for hand, wrist, and elbow strengthening, as well as a light LE stabilization program. Patient demonstrates good understanding of all exercises, and is without questions at this time. Patient to discharge to home later today, per provider, with HH PT versus OP PT follow up recommended.
--- NOTE | 2020-12-28 17:09 | PDOC.CMDIS ---
- If Service Date Differs Date of service: 12/28/20 Time of Service: 17:09 LACE Index Scoring Tool - Questions: Length of Stay (in days): 3 Acuity (Admit via E.D.?): Yes Comorbidities: Cerebrovascular Disease E.D. Visits: 5 - Answers: Total Score: 11 Risk of Readmission: High Risk Care Management Discharge Reason for Hospitalization: Right knee swelling and pain Discharge Plan: Cosmo returned home today with a plan to return to the infusion room daily to complete his two week course of IV antibiotics. He will arrive at 1pm daily, which was the only time that was available. He was driven home by private car, [facility] [place], coordinated by CM. He will follow up with Ortho, his PCP and discharge plan of care. He is happy to be going home. Patient/Family Education Needs: Review discharge instructions and limitations, discussion of self care needs including ask me three. Services Needed at Discharge: Infusion Therapy (daily at 1pm for a 2 week course), Transportation ([facility] private vehicle)
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
--- NOTE | 2021-01-03 14:02 | W.PM.PROGNOT ---
Date of Service Date of service: 12/21/20 Time of Service: 09:03 Assessment and Plan Assessment and plan (1) Laceration of right knee: Status: Acute Qualifiers: Encounter type: subsequent encounter Qualified Code(s): S81.011D - Laceration without foreign body, right knee, subsequent encounter (2) Traumatic wound dehiscence: Status: Acute Assessment and plan: Cosmo is a 70 year old who was admitted for a traumatic partial wound dehisence with concern for secondary infection of the right knee replacement. He is NPO. We will proceed to the OR this afternoon for aggressive I&D including polyethylene exchange and arthrotomy re-repair as indicated. All of his questions were answered. I discussed the procedure with him including the risks such as bleeding, infection, pain, stiffness, weakness, need for additional surgeries, damage to nerves and vessels, damage to muscles and tendons, blood clot. Despite these risks, he agreed to proceed. Qualifiers: Encounter type: subsequent encounter Qualified Code(s): T81.33XD - Disruption of traumatic injury wound repair, subsequent encounter Subjective Subjective Interval history since last seen: Cosmo has no acute changes from last night. His pain is controlled. He is on antibiotics. Exam Narrative Exam Narrative: NAD. AAOx3. Dressing to RLE is c/d/i. +ADF/APF/EHL/FHL. Palbable DP/PT Objective Last Vital Signs Temp 36.5 C 12/28/20 03:17 Pulse 75 12/28/20 03:17 Resp 18 12/28/20 03:17 BP 123/73 12/28/20 03:17 Pulse Ox 93 12/28/20 03:17
== END 2020-12-28 13:03 | disposition home or self-care (01) | DRG 486 ==
LOC: ER 15:54 → DSU 15:58 → MS 19:39 → DSU 12-29 10:12 → ER 12-29 10:12 → MS 12-29 10:12
PROVIDERS: Admitting Provider Student in an Organized Health Care Education/Training Program; Emergency Provider Emergency Medicine; PCP Family Medicine; Visit Provider Student in an Organized Health Care Education/Training Program
PROC: 0S9C0ZZ Drainage of Right Knee Joint, Open Approach (ICD-10-PCS; CPT 27310; principal; 2020-12-25 16:00)
DX: T84.53XA Infection and inflammatory reaction due to internal right knee prosthesis, initial encounter (principal); M25.061 Hemarthrosis, right knee; I48.20 Chronic atrial fibrillation, unspecified; N40.0 Benign prostatic hyperplasia without lower urinary tract symptoms; F17.220 Nicotine dependence, chewing tobacco, uncomplicated; M1A.9XX0 Chronic gout, unspecified, without tophus (tophi); F41.8 Other specified anxiety disorders; E78.5 Hyperlipidemia, unspecified; I10 Essential (primary) hypertension; R33.9 Retention of urine, unspecified; Z79.01 Long term (current) use of anticoagulants; F12.90 Cannabis use, unspecified, uncomplicated; E66.01 Morbid (severe) obesity due to excess calories; Z68.39 Body mass index [BMI] 39.0-39.9, adult; G47.33 Obstructive sleep apnea (adult) (pediatric); G25.81 Restless legs syndrome; B95.7 Other staphylococcus as the cause of diseases classified elsewhere
CPT/HCPCS: 27310; 36410; 36415; 80053; 85027; 85652; 86850; 86900; 86901; 87635; 96365; 96375; 97110; 97162; 97530; 99285; 80202; 82565; 85025; 85610; 85730; 86140; 87070; 87075; 87205; J0131; J0878; J1100; J1885; J2001; J2250; J2405; J3010

== ENCOUNTER → 2021-01-05 11:37 | Outpatient (BNVA) | payer OTHER, SELFPAY | PROVIDERS: PCP Family Medicine; Referring Provider Family Medicine; Visit Provider Urology | DX: R19.7 Diarrhea, unspecified (principal); T36.8X5A Adverse effect of other systemic antibiotics, initial encounter | CPT/HCPCS: 99213 ==

== ENCOUNTER 2021-01-06 15:46 | Outpatient (REF) | payer MEDICARE, MEDICAID, SELFPAY | END 2021-01-06 15:47 | disposition home or self-care (01) | LOC: LBN 15:46 | PROVIDERS: PCP Family Medicine; Visit Provider Urology | DX: R19.7 Diarrhea, unspecified (principal) | CPT/HCPCS: 87329; 87493 ==

== ENCOUNTER 2021-01-09 01:35 | Outpatient (RCR) | payer OTHER, SELFPAY ==
[2020-12-30] MEDS: Normal Saline Flush 10 ML SYR IVP (13:47)
[2021-01-01] MEDS: Normal Saline Flush 10 ML SYR IVP (14:21)
[2021-01-02] MEDS: Normal Saline Flush 10 ML SYR IVP ×2 (13:14→13:36)
[2021-01-03 13:22] LABS: HGB 11.1 g/dL (13.5-17.5); MCH 28.9 pg (27.0-33.0); MCHC 31.7 % (32.0-36.0); MCV 91.1 fL (80-95); MPV 8.2 fL (8.0-11.0); Platelet Count 398 10^3/uL (130-400); RBC 3.84 10^6/uL (4.36-5.78); RDW 17.2 % (11.8-14.1); RDW-SD 56.3 fL
[2021-01-03 13:33] LABS: ALT 26 U/L (16-63); AST 17 U/L (15-37); Albumin 3.4 g/dL (3.4-5.0); Alkaline Phosphatase 86 U/L (46-116); Anion Gap 7.6 mmol/L (3-11); BUN 26 mg/dL (7-18); Bilirubin, Total 0.4 mg/dL (0.2-1.0); C-Reactive Protein 3.24 mg/dL (0.0-0.3); CO2 29.4 mmol/L (21.0-32.0); CREATININE 0.9 mg/dL (0.70-1.30); Calcium 9.3 mg/dL (8.5-10.1); Chloride 105 mmol/L (98-107); Creatine Kinase 57 U/L (39-308); Glucose 121 mg/dL (74-106); Potassium 4.5 mmol/L (3.5-5.1); Sodium 142 mmol/L (136-145); Total Protein 7.5 g/dL (6.4-8.2)
[2021-01-03] MEDS: Normal Saline Flush 10 ML SYR IVP (13:55)
[2021-01-04] MEDS: Normal Saline Flush 10 ML SYR IVP (13:34)
[2021-01-06] MEDS: Normal Saline Flush 10 ML SYR IVP (13:38)
[2021-01-07] MEDS: Normal Saline Flush 10 ML SYR IVP (14:22)
[2021-01-08] MEDS: Normal Saline Flush 10 ML SYR IVP (14:00)
[2021-01-09] MEDS: Normal Saline Flush 10 ML SYR IVP (13:33)
[2021-01-09] MEDS: Bacitracin 1 PACKET (14:00)
== END 2021-01-17 23:59 | disposition home or self-care (01) ==
LOC: INF 01:35
PROVIDERS: PCP Family Medicine; Visit Provider Student in an Organized Health Care Education/Training Program
DX: T84.53XA Infection and inflammatory reaction due to internal right knee prosthesis, initial encounter (principal)
CPT/HCPCS: 36415; 80053; 82550; 85027; 96365; 86140; J0878

== ENCOUNTER 2021-01-31 13:56 | Outpatient (REF) | payer OTHER, MEDICAID, SELFPAY ==
[2021-01-31 12:53] LABS: Bilirubin Negative (Negative); Blood Trace-intact (Negative); Clarity Sl Cloudy (Clear); Glucose Negative (Negative); Ketones Negative (Negative); Leukocyte Esterase Large (Negative); Nitrite Positive (Negative); Specific Gravity >= 1.030 (1.005-1.025); Urobilinogen 0.2 EU/dL (Up TO 0.2); pH 5.5 (5-8)
[2021-01-31 13:00] LABS: Bacteria Moderate HPF (Negative); C & S Indicated? C&S Done As Ordered; Casts Negative LPF (Negative); Crystals Negative HPF (Negative); Epithelial Cells Few HPF (Negative); Mucus Negative (Negative); WBC >50 HPF (0-5)
== END 2021-01-31 13:57 | disposition home or self-care (01) ==
LOC: LBN 13:56
PROVIDERS: PCP Family Medicine; Visit Provider Urology
CPT/HCPCS: 87077; 81003; 81015; 87086; 87186

== ENCOUNTER 2021-02-06 15:27 | Outpatient (REF) | payer MEDICARE, MEDICAID, SELFPAY ==
[2021-02-06 21:27] LABS: C Diff PCR Negative (Negative)
== END 2021-02-06 15:28 | disposition home or self-care (01) ==
LOC: NCHCN 15:27
PROVIDERS: PCP Family Medicine; Visit Provider Family Medicine
DX: R19.7 Diarrhea, unspecified (principal)
CPT/HCPCS: 87493

== ENCOUNTER 2021-02-14 16:11 | Outpatient (REF) | payer OTHER, MEDICAID, SELFPAY ==
[2021-02-14 21:41] LABS: Bilirubin Negative (Negative); Blood Trace-intact (Negative); Clarity Clear (Clear); Glucose Negative (Negative); Ketones Negative (Negative); Leukocyte Esterase Large (Negative); Nitrite Negative (Negative); Specific Gravity 1.015 (1.005-1.025); Urobilinogen 0.2 EU/dL (Up TO 0.2)
[2021-02-14 21:54] LABS: Bacteria Negative HPF (Negative); C & S Indicated? C&S Done As Ordered; Crystals Negative HPF (Negative); Epithelial Cells Rare HPF (Negative); Mucus Negative (Negative); Other Cells Few Yeast (Negative); RBC Negative HPF (0-2); WBC >50 HPF (0-5)
== END 2021-02-14 16:12 | disposition home or self-care (01) ==
LOC: LBN 16:11
PROVIDERS: PCP Family Medicine; Visit Provider Urology
DX: N39.0 Urinary tract infection, site not specified (principal)
CPT/HCPCS: 87077; 81003; 81015; 87086; 87186

== ENCOUNTER 2021-02-22 03:40 | Outpatient (CLI) | payer MEDICARE, MEDICAID, SELFPAY ==
[2021-02-23 01:53] LABS: COVID-19 RT-PCR UVMMC Result Negative (Negative)
== END 2021-02-22 03:41 | disposition home or self-care (01) ==
LOC: LBO 03:40
PROVIDERS: PCP Family Medicine; Visit Provider Nurse Practitioner Family
DX: Z20.822 Contact with and (suspected) exposure to COVID-19 (principal)
CPT/HCPCS: U0003; U0005

== ENCOUNTER → 2021-03-02 08:56 | Outpatient (BNVA) | payer OTHER, SELFPAY | PROVIDERS: PCP Family Medicine; Referring Provider Family Medicine; Visit Provider Urology | DX: R33.9 Retention of urine, unspecified (principal); E11.9 Type 2 diabetes mellitus without complications; N39.0 Urinary tract infection, site not specified | CPT/HCPCS: 36415; 81003; 99213 ==

== ENCOUNTER 2021-03-02 14:16 | Outpatient (REF) | payer OTHER, SELFPAY | END 2021-03-02 14:17 | disposition home or self-care (01) | LOC: LBN 14:16 | PROVIDERS: PCP Family Medicine; Visit Provider Urology ==

== ENCOUNTER 2021-03-02 17:51 | Outpatient (REF) | payer OTHER, SELFPAY ==
[2021-03-02 12:49] LABS: Abs Immature Grans 0.02 10^3/uL (0.0-0.06); Absolute Basophil Count 0.05 10^3/uL (0.0-0.2); Absolute Eosinophil Count 0.43 10^3/uL (0.0-0.7); Absolute Lymphocyte Count 1.45 10^3/uL (1.2-3.4); Absolute Monocyte Count 0.79 10^3/uL (0.1-0.8); Basophils % 0.6; Eosinophils % 5.5; HCT 46.4 % (40.0-50.0); HGB 14.7 g/dL (13.5-17.5); Immature Grans % 0.3; Lymphocytes % 18.5; MCH 29.8 pg (27.0-33.0); MCHC 31.7 % (32.0-36.0); MCV 93.9 fL (80-95); MPV 9.3 fL (8.0-11.0); Monocytes % 10.1; Nucleated RBC 0 %; Platelet Count 270 10^3/uL (130-400); RBC 4.94 10^6/uL (4.36-5.78); RDW 13.7 % (11.8-14.1); RDW-SD 47.8 fL; WBC 7.84 10^3/uL (4.4-10.8)
[2021-03-02 13:10] LABS: ALT 30 U/L (16-63); AST 15 U/L (15-37); Albumin 3.7 g/dL (3.4-5.0); Alkaline Phosphatase 76 U/L (46-116); Anion Gap 8.3 mmol/L (3-11); BUN 39 mg/dL (7-18); Bilirubin, Total 0.3 mg/dL (0.2-1.0); C-Reactive Protein 4.08 mg/dL (0.0-0.3); CO2 23.7 mmol/L (21.0-32.0); CREATININE 0.9 mg/dL (0.70-1.30); Calcium 10.1 mg/dL (8.5-10.1); Chloride 102 mmol/L (98-107); Glucose 104 mg/dL (74-106); Potassium 4.3 mmol/L (3.5-5.1); Sodium 134 mmol/L (136-145)
[2021-03-02 14:04] LABS: Hemoglobin A1C 5.6 % (<5.7)
== END 2021-03-02 17:52 | disposition home or self-care (01) ==
LOC: LBN 17:51
PROVIDERS: PCP Family Medicine; Visit Provider Urology
DX: R33.9 Retention of urine, unspecified (principal); N39.0 Urinary tract infection, site not specified; T84.53XS Infection and inflammatory reaction due to internal right knee prosthesis, sequela; E11.9 Type 2 diabetes mellitus without complications
CPT/HCPCS: 80053; 83036; 85025; 86140; 87086

== ENCOUNTER → 2021-03-09 08:28 | Outpatient (BNVA) | payer OTHER, SELFPAY | PROVIDERS: PCP Family Medicine; Referring Provider Family Medicine | DX: Z47.1 Aftercare following joint replacement surgery (principal); Z96.651 Presence of right artificial knee joint ==

== ENCOUNTER 2021-05-19 18:07 | Outpatient (REF) | payer MEDICARE, SELFPAY ==
[2021-05-19 20:08] LABS: Bilirubin Negative (Negative); Blood Negative (Negative); Clarity Cloudy (Clear); Glucose Negative (Negative); Ketones Negative (Negative); Leukocyte Esterase Moderate (Negative); Nitrite Positive (Negative); Urobilinogen 0.2 EU/dL (Up TO 0.2); pH 5.5 (5-8)
[2021-05-19 20:32] LABS: Bacteria Many HPF (Negative); C & S Indicated? C&S Done As Ordered; Crystals Negative HPF (Negative); Epithelial Cells Moderate HPF (Negative); Mucus Negative (Negative); RBC Negative HPF (0-2); WBC >50 HPF (0-5)
== END 2021-05-19 18:08 | disposition home or self-care (01) ==
LOC: LBN 18:07
PROVIDERS: PCP Family Medicine; Visit Provider Urology
DX: N39.0 Urinary tract infection, site not specified (principal)
CPT/HCPCS: 87077; 81003; 81015; 87086; 87186

== ENCOUNTER 2021-05-26 17:51 | Outpatient (REF) | payer MEDICARE, SELFPAY ==
[2021-05-26 18:47] LABS: HCT 37.2 % (40.0-50.0); HGB 11.9 g/dL (13.5-17.5); MCH 29.5 pg (27.0-33.0); MCV 92.1 fL (80-95); MPV 9.3 fL (8.0-11.0); Platelet Count 222 10^3/uL (130-400); RBC 4.04 10^6/uL (4.36-5.78); RDW 15.9 % (11.8-14.1); RDW-SD 54.4 fL
[2021-05-26 18:52] LABS: ESR 10 mm/hr (0-20)
[2021-05-26 19:25] LABS: ALT 28 U/L (16-63); AST 15 U/L (15-37); Albumin 3.5 g/dL (3.4-5.0); Alkaline Phosphatase 77 U/L (46-116); BUN 36 mg/dL (7-18); Bilirubin, Total 0.4 mg/dL (0.2-1.0); C-Reactive Protein 1.05 mg/dL (0.0-0.3); CREATININE 0.9 mg/dL (0.70-1.30); Calcium 8.8 mg/dL (8.5-10.1); Chloride 108 mmol/L (98-107); Glucose 140 mg/dL (74-106); NT-proBNP 836 pg/mL (<300); Potassium 4.1 mmol/L (3.5-5.1); Sodium 141 mmol/L (136-145); Total Protein 6.5 g/dL (6.4-8.2)
== END 2021-05-26 17:52 | disposition home or self-care (01) ==
LOC: NCHCN 17:51
PROVIDERS: PCP Family Medicine; Visit Provider Family Medicine
DX: R73.03 Prediabetes (principal); R60.0 Localized edema; I10 Essential (primary) hypertension; Z86.79 Personal history of other diseases of the circulatory system; M48.02 Spinal stenosis, cervical region
CPT/HCPCS: 80053; 85027; 85652; 83036; 83880; 86140

== ENCOUNTER 2021-05-30 02:34 | Outpatient (RCR) | payer MEDICARE, MEDICAID, SELFPAY ==
[2021-05-24] MEDS: cefTRIAXone 1 GM/50 ML BAG IVPB (13:00)
[2021-05-24] MEDS: Normal Saline Flush 10 ML SYR IVP (13:00)
[2021-05-25] MEDS: cefTRIAXone 1 GM/50 ML BAG IVPB (13:15)
[2021-05-25] MEDS: Normal Saline Flush 10 ML SYR IVP (13:16)
[2021-05-26] MEDS: cefTRIAXone 1 GM/50 ML BAG IVPB (13:25)
[2021-05-26] MEDS: Normal Saline Flush 10 ML SYR IVP (13:42)
[2021-05-27] MEDS: Normal Saline Flush 10 ML SYR IVP (13:12)
[2021-05-27] MEDS: cefTRIAXone 1 GM/50 ML BAG IVPB (13:12)
[2021-05-28] MEDS: cefTRIAXone 1 GM/50 ML BAG IVPB (13:24)
[2021-05-28] MEDS: Normal Saline Flush 10 ML SYR IVP (13:24)
[2021-05-29] MEDS: Normal Saline Flush 10 ML SYR IVP (12:40)
[2021-05-29] MEDS: cefTRIAXone 1 GM/50 ML BAG IVPB (12:40)
[2021-05-30] MEDS: cefTRIAXone 1 GM/50 ML BAG IVPB (12:56)
[2021-05-30] MEDS: Normal Saline Flush 10 ML SYR IVP (12:57)
== END 2021-06-17 23:59 | disposition home or self-care (01) ==
LOC: INF 02:34
PROVIDERS: PCP Family Medicine; Visit Provider Urology
DX: N39.0 Urinary tract infection, site not specified (principal)
CPT/HCPCS: 96365; J0696

== ENCOUNTER → 2021-06-05 09:43 | Outpatient (BNVA) | payer MEDICARE, SELFPAY | PROVIDERS: PCP Family Medicine; Referring Provider Family Medicine; Visit Provider Student in an Organized Health Care Education/Training Program | DX: S76.111D Strain of right quadriceps muscle, fascia and tendon, subsequent encounter (principal); X58.XXXD Exposure to other specified factors, subsequent encounter | CPT/HCPCS: 99214 ==

== ENCOUNTER 2021-06-30 07:18 | Emergency (ER) | payer MEDICARE, MEDICAID, SELFPAY ==
[2021-06-30 07:22] VITALS: BP 124/97; PULSE 75; RESP 20; TEMP 36; O2SAT 96
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
[2021-06-30] MEDS: Lidocaine/Epinephri/Tetracaine Topical Gel 3 ML TP (08:38)
--- NOTE | 2021-06-30 09:14 | DI.CT_ITS ---
Exam(s) CT HEAD WO EXAM: CT HEAD WO CLINICAL HISTORY: head injury, on pradaxa. TECHNIQUE: Imaging Protocol: Axial computed tomography images with coronal and sagittal reformatted images were created and reviewed COMPARISON: CT CT HEAD WO from 08/03/2019 FINDINGS: There are no skull fractures nor fluid in the visualized paranasal sinuses. There is no evidence of intracranial hemorrhage, mass effect, or shift of midline structures. There are no extra-axial fluid collections. The ventricles are not enlarged or shifted and there is no blo od within the ventricular system nor within the basal cisterns. There is an unchanged hypodensity below left basal ganglia which is most probably a developmental sub lenticular cyst IMPRESSION: No acute intracranial findings on this noninfused CT scan of the brain. Report called by myself to ER provider. RADIATION DOSE DELIVERED: 987.72mGy.cm Total DLP DATA REPOSITORY: All CT scans at this facility are submitted to the National Radiology Data Registry (NRDR) Dose Index Registry (DIR) with the [employer] (ACR). RADIATION OPTIMIZATION: All CT scans at this facility use at least one of these dose optimization te chniques: automated exposure control; mA and/or kV adjustment per patient size (includes targeted exa ms where dose is matched to clinical indication); or iterative reconstruction.
[2021-06-30 09:53] VITALS: BP 136/87; PULSE 76; RESP 18; O2SAT 97
== END 2021-06-30 09:50 | disposition home or self-care (01) ==
PROVIDERS: Emergency Provider Physician Assistant; PCP Family Medicine
DX: S01.21XA Laceration without foreign body of nose, initial encounter (principal); S09.8XXA Other specified injuries of head, initial encounter; W22.03XA Walked into furniture, initial encounter; Z79.01 Long term (current) use of anticoagulants
CPT/HCPCS: 90471; 99284; 70450; 99283

== ENCOUNTER → 2021-07-27 13:03 | Outpatient (BNVA) | payer MEDICARE, SELFPAY | PROVIDERS: PCP Family Medicine; Referring Provider Family Medicine; Visit Provider Nurse Practitioner Gerontology | DX: R33.8 Other retention of urine (principal); R82.90 Unspecified abnormal findings in urine | CPT/HCPCS: 81003; 99214 ==

== ENCOUNTER 2021-07-27 16:18 | Outpatient (REF) | payer MEDICARE, SELFPAY | END 2021-07-27 16:19 | disposition home or self-care (01) | LOC: LBN 16:18 | PROVIDERS: PCP Family Medicine; Visit Provider Nurse Practitioner Gerontology | DX: N39.0 Urinary tract infection, site not specified (principal) | CPT/HCPCS: 87077; 87086; 87186 ==

== ENCOUNTER 2021-08-10 15:34 | Outpatient (REF) | payer MEDICARE, SELFPAY ==
[2021-08-10 19:23] LABS: HCT 43.9 % (40.0-50.0); HGB 14.1 g/dL (13.5-17.5); MCH 28.9 pg (27.0-33.0); MCHC 32.1 % (32.0-36.0); MCV 90 fL (80-95); MPV 8.8 fL (8.0-11.0); Platelet Count 257 10^3/uL (130-400); RBC 4.88 10^6/uL (4.36-5.78); RDW 14.1 % (11.8-14.1); RDW-SD 46.9 fL; WBC 6.63 10^3/uL (4.4-10.8)
[2021-08-10 19:48] LABS: Anion Gap 10.8 mmol/L (3-11); BUN 27 mg/dL (7-18); CO2 23.2 mmol/L (21.0-32.0); CREATININE 0.9 mg/dL (0.70-1.30); Calcium 8.9 mg/dL (8.5-10.1); Chloride 104 mmol/L (98-107); Ferritin 105 ng/mL (26-388); Glucose 90 mg/dL (74-106); Potassium 4.4 mmol/L (3.5-5.1); Sodium 138 mmol/L (136-145)
[2021-08-10 19:52] LABS: Bilirubin Negative (Negative); Blood Trace-intact (Negative); Clarity Sl Cloudy (Clear); Glucose Negative (Negative); Ketones Negative (Negative); Leukocyte Esterase Small (Negative); Nitrite Negative (Negative); Urobilinogen 0.2 EU/dL (Up TO 0.2); pH 5.5 (5-8)
[2021-08-10 20:35] LABS: Epithelial Cells Few HPF (Negative); RBC Negative HPF (0-2); WBC 20-50 HPF (0-5)
[2021-08-10 20:36] LABS: Bacteria Many HPF (Negative); C & S Indicated? C&S Done As Ordered; Casts Negative LPF (Negative); Crystals Negative HPF (Negative); Mucus Negative (Negative); Other Cells Few Renal (Negative)
== END 2021-08-10 15:35 | disposition home or self-care (01) ==
LOC: LBN 15:34
PROVIDERS: PCP Family Medicine; Visit Provider Family Medicine
DX: K92.1 Melena (principal); I10 Essential (primary) hypertension; N39.0 Urinary tract infection, site not specified
CPT/HCPCS: 80048; 85027; 87077; 81003; 81015; 82728; 87086; 87186

== ENCOUNTER → 2021-08-14 14:20 | Outpatient (BNVA) | payer MEDICARE, MEDICAID, SELFPAY | PROVIDERS: PCP Family Medicine; Referring Provider Family Medicine; Visit Provider Nurse Practitioner Gerontology | DX: R33.8 Other retention of urine (principal); B96.20 Unspecified Escherichia coli [E. coli] as the cause of diseases classified elsewhere; Z16.20 Resistance to unspecified antibiotic; N39.0 Urinary tract infection, site not specified | CPT/HCPCS: 99213; 96372; J0696 ==

== ENCOUNTER → 2021-08-29 13:56 | Outpatient (BNVA) | payer MEDICARE, SELFPAY | PROVIDERS: PCP Family Medicine; Referring Provider Family Medicine; Visit Provider Urology | DX: R33.8 Other retention of urine (principal) | CPT/HCPCS: 81003; 99215 ==

== ENCOUNTER → 2021-09-07 09:19 | Outpatient (BNVA) | payer MEDICARE, SELFPAY | PROVIDERS: PCP Family Medicine; Referring Provider Family Medicine; Visit Provider Nurse Practitioner Gerontology | DX: R33.8 Other retention of urine (principal) | CPT/HCPCS: 51702 ==

== ENCOUNTER → 2021-09-13 13:14 | Outpatient (BNVA) | payer MEDICARE, SELFPAY | PROVIDERS: PCP Family Medicine; Referring Provider Family Medicine; Visit Provider Nurse Practitioner Gerontology | DX: R33.8 Other retention of urine (principal) | CPT/HCPCS: 99212 ==

== ENCOUNTER 2021-10-27 14:42 | Outpatient (REF) | payer MEDICARE, MEDICAID, SELFPAY | END 2021-10-27 14:43 | disposition home or self-care (01) | LOC: LBN 14:42 | PROVIDERS: PCP Family Medicine; Visit Provider Urology | DX: R30.0 Dysuria (principal) | CPT/HCPCS: 87077; 87086; 87186 ==

== ENCOUNTER 2021-11-06 03:05 | Outpatient (RCR) | payer MEDICARE, MEDICAID, SELFPAY ==
[2021-10-31] MEDS: cefTRIAXone 1 GM/50 ML BAG IVPB (13:37)
[2021-10-31] MEDS: Normal Saline Flush 10 ML SYR IVP (13:38)
[2021-11-01] MEDS: cefTRIAXone 1 GM/50 ML BAG IVPB (13:43)
[2021-11-01] MEDS: Normal Saline Flush 10 ML SYR IVP (13:43)
[2021-11-02] MEDS: Normal Saline Flush 10 ML SYR IVP (13:16)
[2021-11-02] MEDS: cefTRIAXone 1 GM/50 ML BAG IVPB (13:16)
[2021-11-03] MEDS: cefTRIAXone 1 GM/50 ML BAG IVPB (13:25)
[2021-11-03] MEDS: Normal Saline Flush 10 ML SYR IVP (13:29)
[2021-11-04] MEDS: Normal Saline Flush 10 ML SYR IVP (13:37)
[2021-11-04] MEDS: cefTRIAXone 1 GM/50 ML BAG IVPB (13:37)
[2021-11-05] MEDS: cefTRIAXone 1 GM/50 ML BAG IVPB (13:29)
[2021-11-05] MEDS: Normal Saline Flush 10 ML SYR IVP (13:29)
== END 2021-11-17 23:59 | disposition home or self-care (01) ==
LOC: INF 03:05
PROVIDERS: PCP Family Medicine; Visit Provider Urology
DX: N39.0 Urinary tract infection, site not specified (principal)
CPT/HCPCS: 96365; J0696

== ENCOUNTER 2021-11-06 10:31 | Inpatient (IN) | payer MEDICARE, MEDICAID, SELFPAY ==
[2021-11-06] VITALS (29 sets, daily range): BP systolic 95–132; BP diastolic 62–83; PULSE 73–106; RESP 15–28; TEMP 36.1–37.2; O2SAT 81–100
[2021-11-06 12:08] LABS: Bilirubin Small (Negative); Blood Large (Negative); Clarity Cloudy (Clear); Glucose Negative (Negative); Ketones Negative (Negative); Leukocyte Esterase Small (Negative); Nitrite Negative (Negative)
[2021-11-06 12:15] LABS: C & S Indicated? Yes; RBC >50 HPF (0-2)
--- NOTE | 2021-11-06 12:30 | RT.EKG_ITS ---
APPROVED REPORT Exam: Resting ECG Reason for Exam: SOB Patient Location: E HR:79 bpm ECG Measurements Heart Rate 79 AXIS [place] [id number] P [id number] QRSd 168 QRS -33 QT 415 T -31 QTc 476 Conclusion Atrial fibrillation...V-rate 62-106, irreg A-activity Right bundle branch block...QRSd>120, terminal axis(90,270) atrial fibrillation at 79, left anterior fascicular block, right bundle branch block, no STEMI, nondi agnostic EK
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
[2021-11-06 13:40] LABS: Lactate 0.9 mmol/L (0.6-1.4)
[2021-11-06 13:43] LABS: Abs Immature Grans 0.06 10^3/uL (0.0-0.06); Absolute Basophil Count 0.04 10^3/uL (0.0-0.2); Absolute Eosinophil Count 0.34 10^3/uL (0.0-0.7); Absolute Lymphocyte Count 1.09 10^3/uL (1.2-3.4); Absolute Monocyte Count 0.54 10^3/uL (0.1-0.8); Absolute Neutrophil Count 4.43 10^3/uL (1.2-6.7); Basophils % 0.6; Eosinophils % 5.2; HCT 28.2 % (40.0-50.0); HGB 8.6 g/dL (13.5-17.5); Immature Grans % 0.9; Lymphocytes % 16.8; MCH 27.4 pg (27.0-33.0); MCHC 30.5 % (32.0-36.0); MCV 90 fL (80-95); MPV 7.8 fL (8.0-11.0); Monocytes % 8.3; Neutrophils % 68.2; Nucleated RBC 0.3 % (0.0-0.3); Platelet Count 301 10^3/uL (130-400); RBC 3.14 10^6/uL (4.36-5.78); RDW-SD 60.9 fL
[2021-11-06 13:53] LABS: Prothrombin Time 10.4 sec (9.3-11.0)
[2021-11-06 13:54] LABS: COVID-19 PCR Negative (Negative); Influenza A PCR Negative (Negative); Influenza B PCR Negative (Negative); RSV PCR Negative (Negative)
[2021-11-06 13:55] LABS: Source Nasopharynx
[2021-11-06 14:03] LABS: Basophilic Stippling Present; Diff Comment Diff Reviewed; Hypochromasia 2+; Polychromasia Present
[2021-11-06 14:11] LABS: D-Dimer 4259 ng/mlFEU (<500)
[2021-11-06 14:14] LABS: ALT 23 U/L (16-63); AST 23 U/L (15-37); Albumin 2.5 g/dL (3.4-5.0); Alkaline Phosphatase 72 U/L (46-116); Anion Gap 4.9 mmol/L (3-11); BUN 26 mg/dL (7-18); Bilirubin, Total 0.6 mg/dL (0.2-1.0); CO2 30.1 mmol/L (21.0-32.0); Calcium 8.5 mg/dL (8.5-10.1); Chloride 107 mmol/L (98-107); Estimated GFR 79.97 (mL/min/1.73m2); Glucose 124 mg/dL (74-106); Potassium 3.7 mmol/L (3.5-5.1); Sodium 142 mmol/L (136-145); Total Protein 6.3 g/dL (6.4-8.2); Troponin I < 50 ng/L (<or=60)
--- NOTE | 2021-11-06 14:15 | DI.CT_ITS ---
Exam(s) CT CHEST PE CTA EXAM: CT CHEST PE CTA CLINICAL HISTORY: SOB, elevated d-dimer. TECHNIQUE: Imaging Protocol: Axial CT angiography was performed with multi-slice acquisition and mu lti-planar reconstructions as well as axial, coronal and sagittal MIP reconstructions. CONTRAST MATERIAL: Intravenous: Omnipaque 350 Contrast volume:100 ml COMPARISON: CR XR PORTABLE CHEST AP POST LINE from 08/04/2018 FINDINGS: Exam is somewhat limited by motion and expiratory changes.. Pulmonary Arteries: No evidence of filling defect to suggest pulmonary emboli. Tracheobronchial tree: Patent where visualized. Mediastinum and Stephenie: No dominant adenopathy or fluid collection. Pulmonary parenchyma: Scarring and atelectasis greatest at right lung base. No consolidation or elma nant measurable mass. Pleura: No effusion or pneumothorax. Heart: The heart is severely dilated . coronary artery calcifications are seen. Aorta: Thoracic aorta non-dilated. No aneurysm. No dissection. Upper abdomen: Enlarged fatty liver. Gallstones. Dilated IVC may be secondary to right heart failu re. Bones: Prominent flowing endplate osteophytes. IMPRESSION: No evidence of pulmonary embolism. Pulmonary scarring. Results of this exam have been verbally communicated with the emergency department provider. RADIATION DOSE DELIVERED: 745.08mGy.cm Total DLP DATA REPOSITORY: All CT scans at this facility are submitted to the National Radiology Data Registry (NRDR) Dose Index Registry (DIR) with the [employer] ([employer]). RADIATION OPTIMIZATION: All CT scans at this facility use at least one of these dose optimization te chniques: automated exposure control; mA and/or kV adjustment per patient size (includes targeted exa ms where dose is matched to clinical indication); or iterative reconstruction.
[2021-11-06] MEDS: Lidocaine 2% Jelly 6 ML SYR (14:33)
[2021-11-06] MEDS: MORPHine 4 MG/ML SYR IVP (15:00)
[2021-11-06] MEDS: Omnipaque 350 MG/ML 100 ML BTL IJ (15:26)
[2021-11-06] MEDS: Normal Saline Flush 10 ML SYR IVP ×2 (15:26→18:23)
[2021-11-06 16:20] LABS: NT-proBNP 1447 pg/mL (<300)
[2021-11-06 17:03] LABS: Troponin I < 50 ng/L (<or=60)
[2021-11-06] MEDS: cefTRIAXone 1 GM/50 ML BAG IV (18:23)
[2021-11-06] MEDS: Acetaminophen 325 MG TAB PO (19:25)
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
[2021-11-06] MEDS: Pramipexole 0.25 MG TAB 2 MG PO (21:52)
[2021-11-06] MEDS: Furosemide 40 MG/4 ML VIAL IVP (21:54)
[2021-11-07] VITALS (10 sets, daily range): BP systolic 109–136; BP diastolic 71–90; PULSE 66–82; RESP 1–25; TEMP 35.7–36.7; O2SAT 90–94
--- NOTE | 2021-11-07 | DI.US_ITS ---
Exam(s) US RENAL EXAM: US RENAL CLINICAL HISTORY: hematuria evaluation TECHNIQUE: Ultrasound of both kidneys performed using standard protocol. COMPARISON: US US LOWER EXTREMITY VENOUS LT from 02/07/2021 FINDINGS: RIGHT KIDNEY: Measures 1.5 cm in length. No cysts evident. Normal cortical thickness and corticomedullary different iation .No solid masses No intrarenal calculi nor hydronephrosis. LEFT KIDNEY: Measures 12.2 cm in length. No cysts evident. Normal cortical thickness and corticomedullary differe ntiaion. No solids masses. No intrarenal calculi nor hydonephrosis. URINARY BLADDER: A Salmon catheter is not seen in the urinary bladder and appears to be in the upper u rethra. Prevoid volume is 1300 cc Patient was not able to void because of the position of the Salmon. No evidence of bladder mass nor diverticuli. Ureterovesical jets: Not visible IMPRESSION: 1. No significant ultrasound findings in the kidneys. 2. However, the bladder is significantly distended (1300 cc). This is probably related to malpositi on of the Salmon catheter which appears to be in the urethra. This requires removal or repositioning. Report called to [facility] floor nurse by myself. DATA REPOSITORY:
[2021-11-07] MEDS: diphenhydrAMINE 25 MG CAP PO (00:37)
[2021-11-07 07:10] LABS: Abs Immature Grans 0.04 10^3/uL (0.0-0.06); Absolute Basophil Count 0.03 10^3/uL (0.0-0.2); Absolute Eosinophil Count 0.33 10^3/uL (0.0-0.7); Absolute Lymphocyte Count 1.14 10^3/uL (1.2-3.4); Absolute Monocyte Count 0.49 10^3/uL (0.1-0.8); Absolute Neutrophil Count 3.94 10^3/uL (1.2-6.7); Basophils % 0.5; Eosinophils % 5.5; HCT 30.4 % (40.0-50.0); HGB 9.7 g/dL (13.5-17.5); Immature Grans % 0.7; Lymphocytes % 19.1; MCHC 31.9 % (32.0-36.0); MCV 88 fL (80-95); MPV 7.9 fL (8.0-11.0); Monocytes % 8.2; Platelet Count 315 10^3/uL (130-400); RBC 3.47 10^6/uL (4.36-5.78); RDW 19.6 % (11.8-14.1); RDW-SD 59.4 fL; WBC 5.97 10^3/uL (4.4-10.8)
[2021-11-07 07:24] LABS: Anion Gap 5.8 mmol/L (3-11); BUN 22 mg/dL (7-18); CO2 30.2 mmol/L (21.0-32.0); Calcium 8.7 mg/dL (8.5-10.1); Chloride 105 mmol/L (98-107); Estimated GFR 79.97 (mL/min/1.73m2); Glucose 96 mg/dL (74-106); Potassium 3.8 mmol/L (3.5-5.1); Sodium 141 mmol/L (136-145)
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
[2021-11-07] MEDS: buPROPion-XL 150 MG TABCR PO (08:30)
[2021-11-07] MEDS: Multivitamin TAB 1 TAB PO (08:30)
[2021-11-07] MEDS: Ibuprofen 800 MG TAB PO ×2 (08:30→13:59)
[2021-11-07] MEDS: Cyanocobalamin 500 MCG TAB 1000 MCG PO (08:30)
[2021-11-07] MEDS: Spironolactone 25 MG TAB PO (08:31)
[2021-11-07] MEDS: Gabapentin 300 MG CAP PO (08:31)
[2021-11-07] MEDS: Escitalopram 20 MG TAB PO (08:31)
[2021-11-07] MEDS: Cholecalciferol (Vitamin D3) 1,000 UNIT TAB 2000 UNITS PO (08:31)
[2021-11-07] MEDS: Finasteride 5 MG TAB PO (08:31)
[2021-11-07] MEDS: Furosemide 40 MG TAB PO (08:31)
[2021-11-07] MEDS: Omeprazole 20 MG CAPCR PO (08:31)
[2021-11-07] MEDS: Tamsulosin 0.4 MG CAPCR PO (08:31)
[2021-11-07] MEDS: Lisinopril 5 MG TAB PO (08:31)
--- NOTE | 2021-11-07 09:49 | TELEP.MEDR_ITS ---
Date of service: 11/07/21 Time of Service: 09:49 [facility] Allergies Allergies: cephalexin monohydrate [From Keflex] Allergy (Intermediate, Verified 11/06/21 16:59) Skin Rash aspirin [From Percodan] Allergy (Verified 11/06/21 16:59) hydrocodone Adverse Reaction (Severe, Verified 11/06/21 16:59) Psychosis ertapenem [From Invanz] Adverse Reaction (Intermediate, Verified 11/06/21 16:59) severe gi upset oxycodone [Oxycodone] Adverse Reaction (Intermediate, Verified 11/06/21 16:59) Psychosis Interview Person Interviewed: Patient and daughter Judy Quality Quality of Interview/Accuracy of Medication List: Good Sources Sources used to compile medication lsit: [employer] Medication List, Patient List and [employer] Changes made to Home Medication List: ADDITIONS: none DELETIONS: duplilcate Multiple vitamins, duplicate Cholecalciferol, doxycycline, gabapentin , and diclofenac CHANGES: none Additional Notes Additional Notes: Of note the spironolactone was written on 11/03/2021, the prescription fill has not yet been received by the patient so he has not yet started the spironolactone at home as of 11/07/2021. he has not taken multiple vitamins in over a month at home but plans to restart post discharge. it is unknown when he last took cyanocobalamin and not sure if this will be restarted after discharge. The patient stopped the dabigatran 2 days ago because he was bleeding so much. Recommended Changes Recommended Changes(reason for recommendation): none Attestation: The home medication list is now updated to the best of my knowledge and is ready to be reconciled by the provider. Please contact the [facility] Medication Reconciliation Pharmacist at for any questions.
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
[2021-11-07] MEDS: Magnesium Gluconate 500 MG TAB 250 MG PO (10:28)
[2021-11-07] MEDS: Cyclobenzaprine 10 MG TAB PO (11:49)
--- NOTE | 2021-11-07 12:41 | DI.US_ITS ---
APPROVED REPORT EXAM: Comprehensive 2D, Doppler, and color-flow Echocardiogram Patient Location: In-Patient Shank Pinner: Octavia Zavala RDCS (AE) Indications: Dyspne, Elevated BNP, Evaluate LV and RV Other Information Study Quality: Fair. Technically limited study due to body habitus. Conclusion Technically difficult and suboptimal study Mildly dilated left ventricle. Estimated ejection fraction is 57%. No segmental wall motion abnorma lities are appreciated Right ventricle is not well visualized Both atria are moderately dilated The aortic valve is sclerotic and trileaflet without stenosis or regurgitation Mild mitral annular calcification. Trace mitral regurgitation Normal tricuspid valve with moderate regurgitation. Estimated right ventricular systolic pressure is 34 mmHg Mildly dilated ascending aorta measuring 3.77 cm Wall motion Left Ventricle Left ventricle is mildly dilated. The overall left ventricular systolic function appears normal. Ther e is normal left ventricular wall thickness. Regional wall motion is not well visualized but grossly normal. There is no ventricular septal defect visualized. LVEF is 57%. Right Ventricle Right ventricle is not well visualized. Right ventricular systolic function could not be assessed. Th e RVSP is 34.0 mmHg. Atria Left atrium is moderately dilated. Right atrium is moderately dilated. The interatrial septum is inta ct with no evidence for an atrial septal defect. Aortic Valve The Aortic valve is sclerotic. Aortic valve is trileaflet. There is no aortic valvular stenosis. No a ortic regurgitation is present. Mitral Valve Mild mitral annular calcification. No evidence of mitral valve stenosis. Trace mitral regurgitation. Tricuspid Valve The tricuspid valve is normal in structure. There is no tricuspid valve stenosis. Moderate tricuspid regurgitation. Pulmonic Valve The pulmonary valve is normal in structure. There is no pulmonic valvular stenosis. Mild pulmonic reg urgitation. Great Vessels The aortic root is normal in size. The ascending aorta is mildly dilated. Aortic arch is not well vis ualized. The IVC collapses <50% with inspiration. 2D Dimensions IVSD d PLAX 1.12 cm M: 0.6-1.2 LVPW d PLAX 1.19 cm M: 0.6 - 1.2 LVID d PLAX 6.11 cm M: 4.2 - 5.8 LVDs 4.15 cm M: 2.5 - 4.0 Ao Root d 3.18 cm M: 3.1 - 3.7 Ao Asc Diam d 3.77 cm M: 2.6 - 3.4 LV EF Teichholz 58.6 % FS 31.60 % LV Diastology MV E Vmax 1.29 (0.4-1.3 m/s) Aortic Valve LVOT Area 3.23 cm2 AoV Area Vmax 1.28 cm2 LVOT Vmax 0.72 m/s AoV Area/ BSA (Vmax) 0.58 cm2/m2 LVOT Mean Chi. 0.49 m/s ASHKAN Mean Chi. 1.10 cm2 LVOT Peak Grad 2.0 mmHg ASHKAN Mean Chi. Index 0.50 cm2/m2 LVOT Mean Grad 1.1 mmHg LVOT VTI 0.129 m LVOT Diam s 2.00 cm AoV Vmax 1.81 m/s Velocity Ratio 0.39 AoV Mean Chi. 1.45 m/s AoV Peak Grad 13.1 mmHg LVOT SV 41.64 mL AoV Mean Grad 8.8 mmHg AoV VTI 0.367 m AoV Area VTI 1.13 cm2 AoV Area/ BSA (VTI) 0.52 cm/m2 Mitral Valve MV DT 209 (160-240 msec) MV PHT 61 msec MV Area PHT 3.63 cm2 MV VTI 0.221 m MV Area VTI 1.88 (4.0-6.0 cm2) Pulmonary Valve PV Vmax 1.08 (0.5-1.5 m/s) RVOT Peak Gr. 1.12 mmHg PV Peak Grad 4.6 mmHg RVOT Mean Gr. 0.55 mmHg PV Mean Grad 2.2 mmHg RVOT VTI 0.090 m PV VTI 0.174 m RVOT Vmax 0.53 m/s Tricuspid Valve TR Peak Grad 25.9 mmHg TR Vmax 2.55 m/s RA Pressure 8.00 mmHg RVSP (TR) 34.0 mmHg
--- NOTE | 2021-11-07 17:04 | CHAPLAIN ---
Cosmo was up in the chair having his dinner when I visited. I explained my role and offered support. He said he has been able to be in contact with family.
--- NOTE | 2021-11-07 17:11 | W.PM.PROGNOT ---
Date of Service Date of service: 11/07/21 Time of Service: 17:11 Assessment and Plan Assessment and plan (1) Anemia: Status: Chronic Assessment and plan: S/p transfusion of 1 unit PRBC. H/H improved to 9.7/30.4 this am. Recheck in am. He is also heme +. If H/H is stable tomorrow, suspect he would benefit from outpatient EGD/colonoscopy. At this time, will increase PPI dose. (2) Recurrent UTI (urinary tract infection): Status: Acute Assessment and plan: Due to E. Coli, citrobacter, mixed gram positive karri, present on admission. Continue ceftriaxone. (3) Dyspnea: Status: Acute Assessment and plan: Suspect acute on chronic diastolic CHF in addition to mild pulmonary hypertension. Echo w/ LVEF of 57%. RV not visualized; RVSP was 34 mmHg. Suspect OHS as well. Still quite edematous and I think would benefit from intensified diuresis. Clinically, is not presenting as COPD exacerbation. (4) Incomplete emptying of bladder: Status: Chronic Assessment and plan: The patient would benefit from outpatient suprapubic tube by IR. For now, continue vicente catheter - position adjusted. (5) Hematuria: Status: Acute Assessment and plan: US renal shows normal kidneys, but bladder was significantly distended; vicente catheter was repositioned. (6) Heme + stool: Status: Acute Assessment and plan: As above D/c PO NSAIDS. Increase PPI. Outpatient EGD/colonoscopy. (7) DVT prophylaxis: Status: Acute Assessment and plan: SCDs. Hold chemical DVT ppx in light of GI bleeding (8) Discharge planning issues: Status: Acute Assessment and plan: Full code Continues to require hospitalization. PT C/s Subjective Subjective Interval history since last seen: Mr Méndez does not feel any better as far as his breathing. Endorses B knee pain when sitting Denies dizziness, chest pain, endorses shortness of breath with any movement rather than with any positional changes (not worse when laying flat). Denies n/v. Had a BM - heme +. Exam Narrative Exam Narrative: General: Pleasant Obese male who is sitting up in a chair having dinner and speaking in full sentences, no respiratory distress noted, on RA HEENT: EOMI, MMM Heart: RRR, no m/r/g Lungs: Diminished breath sounds B Abdomen: obese, soft Extremities: 2+ BLE edema Objective Last Vital Signs Temp 36.7 C 11/07/21 15:49 Pulse 66 11/07/21 15:49 Resp 18 11/07/21 15:49 BP 123/80 11/07/21 15:49 Pulse Ox 93 11/07/21 15:49 Laboratory Results - last 24 hr 11/06/21 11/07/21 11/07/21 16:38 06:08 06:08 WBC 5.97 RBC 3.47 L Hgb 9.7 L Hct 30.4 L MCV 88 MCH 28.0 MCHC 31.9 L RDW 19.6 H Plt Count 315 MPV 7.9 L Immature Gran % 0.7 Neutrophils % 66.0 Lymphocytes % 19.1 Monocytes % 8.2 Eosinophils % 5.5 Basophils % 0.5 Nucleated RBC % 0.0 Absolute Neutrophils 3.94 Absolute Lymphocytes 1.14 L Absolute Monocytes 0.49 Absolute Eosinophils 0.33 Absolute Basophils 0.03 Sodium 141 Potassium 3.8 Chloride 105 Carbon Dioxide 30.2 Anion Gap 5.8 BUN 22 H Creatinine 1.0 Est GFR (CKD-EPI 2020) 79.97 Glucose 96 Calcium 8.7 Patient ABO/Rh A Negative Antibody Screen NEGATIVE Crossmatch See Detail
[2021-11-07] MEDS: Furosemide 40 MG/4 ML VIAL IVP (17:29)
[2021-11-07] MEDS: Lidocaine 5% Patch 2 PATCH TP (17:30)
[2021-11-07] MEDS: cefTRIAXone 1 GM/50 ML BAG IV (17:30)
[2021-11-07] MEDS: Normal Saline Flush 10 ML SYR IVP (17:30)
[2021-11-07] MEDS: Pramipexole 0.25 MG TAB 2 MG PO (17:30)
[2021-11-07] MEDS: Acetaminophen 325 MG TAB PO (20:28)
[2021-11-07] MEDS: Pantoprazole 40 MG VIAL IVP (20:28)
[2021-11-07] MEDS: Gabapentin 300 MG CAP 600 MG PO (21:29)
[2021-11-08 02:57] VITALS: BP 126/76; PULSE 83; RESP 16; TEMP 36.6; O2SAT 92
[2021-11-08 03:56] VITALS: RESP 25
[2021-11-08 07:37] LABS: Abs Immature Grans 0.03 10^3/uL (0.0-0.06); Absolute Basophil Count 0.04 10^3/uL (0.0-0.2); Absolute Eosinophil Count 0.34 10^3/uL (0.0-0.7); Absolute Lymphocyte Count 1.07 10^3/uL (1.2-3.4); Absolute Monocyte Count 0.55 10^3/uL (0.1-0.8); Absolute Neutrophil Count 4.45 10^3/uL (1.2-6.7); Basophils % 0.6; Eosinophils % 5.2; HCT 32.7 % (40.0-50.0); HGB 10.4 g/dL (13.5-17.5); Immature Grans % 0.5; Lymphocytes % 16.5; MCH 28.2 pg (27.0-33.0); MCHC 31.8 % (32.0-36.0); MCV 89 fL (80-95); Monocytes % 8.5; Neutrophils % 68.7; Platelet Count 328 10^3/uL (130-400); RBC 3.69 10^6/uL (4.36-5.78); RDW 19.9 % (11.8-14.1); RDW-SD 61.6 fL; WBC 6.48 10^3/uL (4.4-10.8)
[2021-11-08 07:48] LABS: Anion Gap 6.2 mmol/L (3-11); BUN 21 mg/dL (7-18); CO2 30.8 mmol/L (21.0-32.0); CREATININE 1.1 mg/dL (0.70-1.30); Chloride 102 mmol/L (98-107); Estimated GFR 71.32 (mL/min/1.73m2); Glucose 102 mg/dL (74-106); Magnesium 2.2 mg/dL (1.8-2.4); Potassium 4.1 mmol/L (3.5-5.1); Sodium 139 mmol/L (136-145)
[2021-11-08 08:26] VITALS: BP 117/72; PULSE 82; RESP 18; TEMP 36.2; O2SAT 97
[2021-11-08] MEDS: LIDOCAINE Patch Removal 2 EACH TP (08:37)
[2021-11-08] MEDS: Normal Saline Flush 10 ML SYR IVP ×2 (08:38→17:59)
[2021-11-08] MEDS: Furosemide 40 MG/4 ML VIAL IVP (08:38)
[2021-11-08] MEDS: Pantoprazole 40 MG VIAL IVP ×2 (08:38→19:49)
[2021-11-08] MEDS: buPROPion-XL 150 MG TABCR PO (08:39)
[2021-11-08] MEDS: Finasteride 5 MG TAB PO (08:39)
[2021-11-08] MEDS: Gabapentin 300 MG CAP PO (08:39)
[2021-11-08] MEDS: Cyanocobalamin 500 MCG TAB 1000 MCG PO (08:39)
[2021-11-08] MEDS: Escitalopram 20 MG TAB PO (08:39)
[2021-11-08] MEDS: Lisinopril 5 MG TAB PO (08:39)
[2021-11-08] MEDS: Multivitamin TAB 1 TAB PO (08:39)
[2021-11-08] MEDS: Spironolactone 25 MG TAB PO (08:39)
[2021-11-08] MEDS: Cholecalciferol (Vitamin D3) 1,000 UNIT TAB 2000 UNITS PO (08:39)
[2021-11-08] MEDS: Tamsulosin 0.4 MG CAPCR PO (08:39)
[2021-11-08 09:09] LABS: Lab Add On Test DONE
[2021-11-08 09:23] LABS: Iron 49 ug/dL (65-175); Total Iron Binding Capacity 216 ug/dL (250-450); Transferrin Sat 23 % (20-55)
[2021-11-08] MEDS: Magnesium Gluconate 500 MG TAB 250 MG PO (09:37)
[2021-11-08 09:57] LABS: Ferritin 127 ng/mL (26-388); Vitamin B12 725 pg/mL (193-986)
[2021-11-08] MEDS: Acetaminophen 325 MG TAB PO (11:05)
[2021-11-08] MEDS: Diclofenac 1% Gel 100 GM TUBE TP ×2 (11:18→14:01)
[2021-11-08 11:59] VITALS: BP 112/68; PULSE 81; RESP 18; TEMP 36.3; O2SAT 94
--- NOTE | 2021-11-08 12:20 | IN_ITS ---
PT Notes Visit Reasons: Hematuria Physical Therapy Inpatient Initial Evaluation Date: 11/08/21 Referring Doctor: Lindsay Valdivia MD PT Orders: PT CONSULT: Eval & treat Precautions: Fall. Standard. Patient Profile/Admitting Diagnosis: Comso is 71 yo male that presented to the ER on 11/06/21 due to hematuria. He uses self catheterization for urinary retention and has recurrent UTIs. Has been getting antibiotics from infusion center the past week. He was found to be anemic and also experiencing fatigue and shortness of breath. He has been cleared by nursing to be independent in room and has been walking with LNAs. PMHX: See EMR Social History/Home Situation: Lives in [facility] alone with 3 ALEX, reports the top step is higher than typical creating increased challenge. He does not use AD inside, but uses 4WW outdoors for stability. Limitations due to right knee. Not on oxygen at baseline. Equipment Owned/DME: 4WW, cane Subjective: Cleared by nursing to see patient and patient is agreeable to PT. Patient is sitting up in chair at time of consult with 1L O2 via NC and vicente catheter. Objective: General Observation: Alert, pleasant Mental Status: A&O x3 Pain: None reported at present ROM: Right Upper Extremity: Shoulder Flexion WFL. Shoulder abduction WFL. Elbow flexion WFL. Wrist flexion WFL. Opening and closing of hand WFL. Left Upper Extremity: Shoulder Flexion WFL. Shoulder abduction WFL. Elbow flex ion WFL. Wrist flexion WFL. Opening and closing of hand WFL. Right Lower Extremity: Hip flexion WFL. Hip abduction WFL. Knee flexion WFL. Knee extension mild impairment. Ankle dorsiflexion WFL. Ankle plantarflexion WFL. Left Lower Extremity: Hip flexion WFL. Hip abduction WFL. Knee flexion mild impairment. Knee extension mild impairment. Ankle dorsiflexion WFL. Ankle plantarflexion WFL. Strength: Right Upper Extremity: Shoulder flexors 5-/5. Shoulder abductors 4/5. Elbow flexors 5/5. Elbow extensors 5/5. Bush Regenerator strong. Left Upper Extremity: Shoulder flexors 5/5. Shoulder abductors 5/5. Elbow flexors 5/5. Elbow extensors 5/5. Bush Regenerator strong. Right Lower Extremity: Hip flexors 5/5. Knee flexors 5/5. Knee extensors 5/5. Ankle dorsiflexors 5/5. Ankle plantarflexors 5/5. Left Lower Extremity: Hip flexors 5/5. Knee flexors 5/5. Knee extensors 3/5. Ankle dorsiflexors 5/5. Ankle plantarflexors 5/5. Sensation: Intact as to pain and pressure on bilateral lower extremities. Bed Mobility/Transfers: Supine to sit: Not assessed Sit to supine: Not assessed Sit to stand: Independent Stand to sit: Independent Gait: Ambulated 260ft with FWW on 1L O2, supervision. Stairs: Ascend/descend 6 step x2, 4 x3 with use of rails and step to gait Balance: Static Sitting: Normal Dynamic Sitting: Good Static Standing: Good Dynamic Standing: Fair Special Tests: Mobility Limitations Standardized Measure [facility]-P[facility] 6 clicks Basic Mobility Inpatient Short Form: Raw Score: 19 CMS Score: 42% Informed Consent/Education: Patient instructed in purpose of PT consult and plan of care. Assessment: Patient presents with clinical signs and symptoms consistent with current/admitting diagnoses that have resulted to mobility limitations, gait instability, generalized weakness, and impairment of motor control as demonstrated by the following impairment level findings: 1. Decreased strength to right knee quadriceps muscle group 2. Impaired activity tolerance 3. Limitation of joint range of motion in right knee Impairments are contributing to the following functional limitations: 1. Increase completion time for mobility ADL performance 2. Increased fall risk 3. Increased time to negotiate steps Patient is assessed as a Moderate complexity based on the following: History: 71 year old male with impairment level findings, functional limitations, and past medical history as indicated above Examination: Demonstrable impairment in strength, balance, and mobility level with underlying impairments and functional limitations as documented above Presentation: Evolving Decision Making: Low complexity POC: Evaluation only, no acute care PT needs at this time. Discharge Plan DISCHARGE RECOMMENDATIONS: Home with home health vs outpatient PT services dependent on needs at time of hospital discharge TREATMENT CODE/TIME: 11:50-12:15 (25 minutes), [id number] Thank you for the opportunity to participate in the care of this patient. Anai Rodriguez, PT, DPT, OCS [facility] [place], [place]
--- NOTE | 2021-11-08 16:10 | PHA.REVIEW2 ---
Pharmacy Admission Review - Admission Clinical Review (Last Updated 11/06/21 @ 21:43 by Fernando Vegas MD) Discharge planning issues (Acute) DVT prophylaxis (Acute) Heme + stool (Acute) Hematuria (Acute) Dyspnea (Acute) Recurrent UTI (urinary tract infection) (Acute) cephalexin monohydrate [From Keflex] Allergy (Intermediate, Verified 11/06/21 16:59) Skin Rash aspirin [From Percodan] Allergy (Verified 11/06/21 16:59) hydrocodone Adverse Reaction (Severe, Verified 11/06/21 16:59) Psychosis ertapenem [From Invanz] Adverse Reaction (Intermediate, Verified 11/06/21 16:59) severe gi upset oxycodone [Oxycodone] Adverse Reaction (Intermediate, Verified 11/06/21 16:59) Psychosis Resuscitation Status Full Code Height 5 ft 10 in Weight 142.9 kg - Renal Dosing Renal Dosing: BUN 21 mg/dL (7-18) H 11/08/21 06:17 Creatinine 1.1 mg/dL (0.70-1.30) 11/08/21 06:17 Medications needing adjustments: Reviewed List of meds needing interventions: eCrCl 87 ml/min, no adjustments needed - Anticoagulation Anticoagulation: Hgb 10.4 g/dL (13.5-17.5) L 11/08/21 06:17 Hct 32.7 % (40.0-50.0) L 11/08/21 06:17 Plt Count 328 10^3/uL (130-400) 11/08/21 06:17 INR 1.0 (0.9-1.1) 11/06/21 13:31 Creatinine 1.1 mg/dL (0.70-1.30) 11/08/21 06:17 DVT Prophylaxis: N/A Therapeutic Anticoagulation: N/A - Opiate Usage Evaluate Pain Scale/Pains Meds: N/A Scheduled Bowel Reg ordered if on Opiates?: No (prn orders) - Relevant Labs Sodium 139 mmol/L (136-145) 11/08/21 06:17 Potassium 4.1 mmol/L (3.5-5.1) 11/08/21 06:17 Chloride 102 mmol/L (98-107) 11/08/21 06:17 Magnesium 2.2 mg/dL (1.8-2.4) 11/08/21 06:17 Electrolytes, C-Reactive P, ESR: Reviewed - DM Control DM Control: Glucose 102 mg/dL (74-106) 11/08/21 06:17 DM Control: N/A - Cardiac Review Cardiac Review: Troponin I < 50 ng/L (<or=60) 11/06/21 16:38 NT-Pro-B Natriuret Pep 1447 pg/mL (<300) H 11/06/21 13:31 BP, HR, EF%: Reviewed - Qtc Review If Elevated, List meds needing intervention: 476 on admission - IV to PO Switch IV Medications: Reviewed - Home Meds Home Med List reviewed: Reviewed Relevent Home Meds Not ordered & why?: not ordered: pradaxa, [id number] (hematuria) Medication adherence barriers identified?: none - Current meds Current Medication Order Review: Reviewed (ceftriaxone day 3 (UTI))
[2021-11-08] MEDS: Furosemide 40 MG TAB PO (16:27)
[2021-11-08] MEDS: Lidocaine 5% Patch 2 PATCH TP (16:28)
--- NOTE | 2021-11-08 16:39 | PDOC.CMPRO ---
- If Service Date Differs Date of service: 11/08/21 Time of Service: 16:39 Care Management Progress Note S/O: Per report, Cosmo continues to have urine retention, and has a vicente catheter in place. Per MD, he would benefit from a suprapubic catheter, but he is not a candidate for the procedure. He continues to be treated for a UTI, and both his urine and stool are heme positive. His H&H continues to improve, as it was 10.4 today. He was evaluated by PT today, who recommend HH PT vs outpatient PT. CM will continue to follow. A: Cosmo is a 71 year old male admitted to [facility] on 11/06/21 for hematuria, anemia. P: Anticipate Cosmo will return home when medically cleared. He will transport with family via private vehicle. He will follow up with his PCP and discharge plan of care. CM will continue to follow.
[2021-11-08] MEDS: Pramipexole 0.25 MG TAB 2 MG PO (17:59)
[2021-11-08] MEDS: Normal Saline 500 ML 100 ML IV (18:00)
[2021-11-08] MEDS: cefTRIAXone 1 GM/50 ML BAG IV (18:00)
[2021-11-08] MEDS: Cyclobenzaprine 10 MG TAB PO (19:49)
[2021-11-08 19:57] VITALS: BP 108/73; PULSE 71; RESP 16; TEMP 36.7; O2SAT 94
--- NOTE | 2021-11-08 20:27 | W.PM.PROGNOT ---
Date of Service Date of service: 11/08/21 Time of Service: 16:00 Assessment and Plan Assessment and plan (1) Anemia: Status: Chronic Assessment and plan: S/p transfusion of 1 unit PRBC. H/H even better today. He is also heme + and will need outpatient GI workup. Continue IV protonix. (2) Recurrent UTI (urinary tract infection): Status: Acute Assessment and plan: Due to E. Coli, citrobacter, mixed gram positive karri, present on admission, in setting of urinary retention, now s/p vicente catheter. Continue ceftriaxone. (3) Dyspnea: Status: Acute Assessment and plan: Suspect acute on chronic diastolic CHF in addition to mild pulmonary hypertension. Echo w/ LVEF of 57%. RV not visualized; RVSP was 34 mmHg. Suspect OHS as well. Doing better. Will transition lasix to PO and observe. -8L over the 24 hrs. Clinically, is not presenting as COPD exacerbation. (4) Incomplete emptying of bladder: Status: Chronic Assessment and plan: The patient would benefit from outpatient suprapubic tube by IR. For now, continue vicente catheter. (5) Hematuria: Status: Acute Assessment and plan: US renal shows normal kidneys, but bladder was significantly distended; vicente catheter was repositioned. Clinically, hematuria has resolved. (6) Heme + stool: Status: Acute Assessment and plan: As above NSAIDS d/c'ed. Continue IV PPI BID. Outpatient EGD/colonoscopy. (7) DVT prophylaxis: Status: Acute Assessment and plan: SCDs. Hold chemical DVT ppx in light of GI bleeding (8) Discharge planning issues: Status: Acute Assessment and plan: Full code Continues to require hospitalization. PT C/s Subjective Subjective Interval history since last seen: Mr Méndez states that the lidocaine patches helped his knee pain and that his shortness of breath is better. He denies dizziness, chest pain, nausea. He does still feel tired. Exam Narrative Exam Narrative: General: Pleasant Obese male who is sitting up in a chair, speaking in full sentences, no respiratory distress noted HEENT: EOMI, MMM Heart: RRR, no m/r/g Lungs: Diminished breath sounds B Abdomen: obese, soft Extremities: 2+ BLE edema, slightly better than yesterday Objective Last Vital Signs Temp 36.7 C 11/08/21 19:57 Pulse 71 11/08/21 19:57 Resp 16 11/08/21 19:57 BP 108/73 11/08/21 19:57 Pulse Ox 94 11/08/21 19:57 Laboratory Results - last 24 hr 11/08/21 11/08/21 11/08/21 06:17 06:17 06:17 WBC 6.48 RBC 3.69 L Hgb 10.4 L Hct 32.7 L MCV 89 MCH 28.2 MCHC 31.8 L RDW 19.9 H Plt Count 328 MPV 8.0 Immature Gran % 0.5 Neutrophils % 68.7 Lymphocytes % 16.5 Monocytes % 8.5 Eosinophils % 5.2 Basophils % 0.6 Nucleated RBC % 0.0 Absolute Neutrophils 4.45 Absolute Lymphocytes 1.07 L Absolute Monocytes 0.55 Absolute Eosinophils 0.34 Absolute Basophils 0.04 Sodium 139 Potassium 4.1 Chloride 102 Carbon Dioxide 30.8 Anion Gap 6.2 BUN 21 H Creatinine 1.1 Est GFR (CKD-EPI 2020) 71.32 Glucose 102 Calcium 9.0 Magnesium 2.2 Iron TIBC Transferrin % Sat Ferritin 127 Vitamin B12 725 Folate 14.0 Add-On Test Request 11/08/21 11/08/21 06:17 09:08 WBC RBC Hgb Hct MCV MCH MCHC RDW Plt Count MPV Immature Gran % Neutrophils % Lymphocytes % Monocytes % Eosinophils % Basophils % Nucleated RBC % Absolute Neutrophils Absolute Lymphocytes Absolute Monocytes Absolute Eosinophils Absolute Basophils Sodium Potassium Chloride Carbon Dioxide Anion Gap BUN Creatinine Est GFR (CKD-EPI 2020) Glucose Calcium Magnesium Iron 49 L TIBC 216 L Transferrin % Sat 23 Ferritin Vitamin B12 Folate Add-On Test Request DONE
[2021-11-08] MEDS: Gabapentin 300 MG CAP 600 MG PO (21:04)
[2021-11-08 23:32] VITALS: BP 102/68; PULSE 72; RESP 18; TEMP 36.6; O2SAT 97
[2021-11-09] VITALS (8 sets, daily range): BP systolic 102–135; BP diastolic 65–89; PULSE 65–105; RESP 16–22; TEMP 36.1–36.7; O2SAT 91–97
[2021-11-09 06:58] LABS: HCT 32.4 % (40.0-50.0); HGB 10.2 g/dL (13.5-17.5)
[2021-11-09 07:20] LABS: Anion Gap 3.9 mmol/L (3-11); BUN 17 mg/dL (7-18); CO2 33.1 mmol/L (21.0-32.0); Calcium 8.9 mg/dL (8.5-10.1); Chloride 103 mmol/L (98-107); Estimated GFR 79.97 (mL/min/1.73m2); Glucose 93 mg/dL (74-106); Magnesium 2.3 mg/dL (1.8-2.4); Potassium 4.2 mmol/L (3.5-5.1); Sodium 140 mmol/L (136-145)
[2021-11-09] MEDS: buPROPion-XL 150 MG TABCR PO (07:56)
[2021-11-09] MEDS: Gabapentin 300 MG CAP PO (07:56)
[2021-11-09] MEDS: Normal Saline Flush 10 ML SYR IVP (07:56)
[2021-11-09] MEDS: Cholecalciferol (Vitamin D3) 1,000 UNIT TAB 2000 UNITS PO (07:56)
[2021-11-09] MEDS: Tamsulosin 0.4 MG CAPCR PO (07:57)
[2021-11-09] MEDS: Escitalopram 20 MG TAB PO (07:57)
[2021-11-09] MEDS: Cyanocobalamin 500 MCG TAB 1000 MCG PO (07:57)
[2021-11-09] MEDS: Multivitamin TAB 1 TAB PO (07:57)
[2021-11-09] MEDS: Spironolactone 25 MG TAB PO (07:58)
[2021-11-09] MEDS: Lisinopril 5 MG TAB PO (07:58)
[2021-11-09] MEDS: Finasteride 5 MG TAB PO (07:58)
[2021-11-09] MEDS: Furosemide 40 MG TAB PO ×2 (07:58→17:03)
[2021-11-09] MEDS: Pantoprazole 40 MG VIAL IVP (08:36)
[2021-11-09] MEDS: Magnesium Gluconate 500 MG TAB 250 MG PO (10:11)
[2021-11-09] MEDS: Acetaminophen 325 MG TAB PO (11:35)
[2021-11-09] MEDS: Lidocaine 5% Patch 2 PATCH TP (11:38)
--- NOTE | 2021-11-09 15:19 | PDOC.CMPRO ---
- If Service Date Differs Date of service: 11/09/21 Time of Service: 15:19 Care Management Progress Note S/O: Cosmo was sitting up in his chair when CM met with him. He reported that he is doing ok today. He called his daughter, Anel, who he reports is very supportive and engaged in his discharge plan. CM asked if he has asked [facility], and Anel stated that they talked to the [facility], but they are willing to look into it again. CM called and spoke to [place], [place] leather case finisher, who stated that Cosmo is not service connected, but he is attached to a social contact worker, Carine Olivarez ([phone]). CM provided this information to Cosmo. Per MD, he is medically cleared and can be discharged, but Cosmo states that his camper won't be hooked up until tomorrow. He will be discharged tomorrow morning. CM will continue to follow. A: Cosmo is a 71 year old male admitted to [facility] on 11/06/21 for hematuria, anemia. P: Anticipate Cosmo will return home when medically cleared. He will transport with family via private vehicle. He will follow up with his PCP and discharge plan of care. CM will continue to follow.
[2021-11-09] MEDS: Pramipexole 0.25 MG TAB 2 MG PO (18:30)
--- NOTE | 2021-11-09 18:40 | W.PM.PROGNOT ---
Date of Service Date of service: 11/09/21 Time of Service: 16:00 Assessment and Plan Assessment and plan (1) Anemia: Status: Chronic Assessment and plan: S/p transfusion of 1 unit PRBC on this admission. H/H stable. He is also heme + and will need outpatient GI workup. Change protonix to PO. (2) Recurrent UTI (urinary tract infection): Status: Acute Assessment and plan: Due to E. Coli, citrobacter, mixed gram positive karri, present on admission, in setting of urinary retention, now s/p vicente catheter. Discussed with Dr Hill, who feels that the patient no longer requires IV antbiotics. Ceftriaxone d/c'ed. (3) Dyspnea: Status: Acute Assessment and plan: Suspect acute on chronic diastolic CHF in addition to mild pulmonary hypertension. Echo w/ LVEF of 57%. RV not visualized; RVSP was 34 mmHg. Suspect OHS as well. Continue PO lasix. Clinically, is not presenting as COPD exacerbation. (4) Incomplete emptying of bladder: Status: Chronic Assessment and plan: The patient would benefit from outpatient suprapubic tube by IR. For now, continue vicente catheter. On discharge, to resume self-catheterization. (5) Hematuria: Status: Acute Assessment and plan: US renal shows normal kidneys, but bladder was significantly distended; vicente catheter was repositioned. Clinically, hematuria has resolved. Will follow up with Dr Hill as outpatient. (6) Heme + stool: Status: Acute Assessment and plan: As above NSAIDS d/c'ed. Change PPI to PO. Outpatient EGD/colonoscopy. (7) DVT prophylaxis: Status: Acute Assessment and plan: SCDs. Hold chemical DVT ppx in light of GI bleeding (8) Discharge planning issues: Status: Acute Assessment and plan: Full code Anticipate discharge home tomorrow morning. PT C/s Subjective Subjective Interval history since last seen: Mr Méndez states that his breathing is better. HE was able to get off of oxygen today and did not require it while ambulating. He has not had any hematuria. He denies dizziness, chest pain, shortness of breath, nausea. He will be returning to self-catheterization and will not need IV abx on discharge. THe patiend and daughter are concerned about his living situation (lives in a camper, does not have heat or hot water right now and was asked to leave where he was staying). He will have a place to go to tomorrow where he can park his camper. Exam Narrative Exam Narrative: General: Pleasant Obese male who is seen ambulating in the hallway on RA as well as in bed in his room; speaking in full sentences, no respiratory distress noted HEENT: EOMI, MMM Heart: RRR, no m/r/g Lungs: Diminished breath sounds B Abdomen: obese, soft Extremities: 2+ BLE edema, slightly better than yesterday Objective Last Vital Signs Temp 36.1 C L 11/09/21 15:08 Pulse 68 11/09/21 15:08 Resp 16 11/09/21 15:08 BP 104/72 11/09/21 15:08 Pulse Ox 95 11/09/21 15:08 Laboratory Results - last 24 hr 11/09/21 11/09/21 06:45 06:45 Hgb 10.2 L Hct 32.4 L Sodium 140 Potassium 4.2 Chloride 103 Carbon Dioxide 33.1 H Anion Gap 3.9 BUN 17 Creatinine 1.0 Est GFR (CKD-EPI 2020) 79.97 Glucose 93 Calcium 8.9 Magnesium 2.3
[2021-11-09] MEDS: Pantoprazole 40 MG TABCR PO (19:51)
[2021-11-09] MEDS: Gabapentin 300 MG CAP 600 MG PO (19:52)
[2021-11-09] MEDS: LIDOCAINE Patch Removal 2 EACH TP (20:25)
[2021-11-10 04:41] VITALS: BP 111/71; PULSE 71; RESP 18; TEMP 36.6; O2SAT 93
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
[2021-11-10 08:10] VITALS: BP 140/91; PULSE 61; RESP 16; TEMP 36.4; O2SAT 93
[2021-11-10] MEDS: Multivitamin TAB 1 TAB PO (08:20)
[2021-11-10] MEDS: buPROPion-XL 150 MG TABCR PO (08:20)
[2021-11-10] MEDS: Pantoprazole 40 MG TABCR PO (08:20)
[2021-11-10] MEDS: Cholecalciferol (Vitamin D3) 1,000 UNIT TAB 2000 UNITS PO (08:20)
[2021-11-10] MEDS: Furosemide 40 MG TAB PO (08:21)
[2021-11-10] MEDS: Finasteride 5 MG TAB PO (08:21)
[2021-11-10] MEDS: Tamsulosin 0.4 MG CAPCR PO (08:21)
[2021-11-10] MEDS: Gabapentin 300 MG CAP PO (08:21)
[2021-11-10] MEDS: Spironolactone 25 MG TAB PO (08:21)
[2021-11-10] MEDS: Cyanocobalamin 500 MCG TAB 1000 MCG PO (08:21)
[2021-11-10] MEDS: Escitalopram 20 MG TAB PO (08:21)
[2021-11-10] MEDS: Lisinopril 5 MG TAB PO (08:21)
--- NOTE | 2021-11-10 09:53 | PDOC.CMDIS ---
- If Service Date Differs Date of service: 11/10/21 Time of Service: 09:53 LACE Index Scoring Tool - Questions: Length of Stay (in days): 4 - 6 Acuity (Admit via E.D.?): Yes Comorbidities: Previous M.I. E.D. Visits: 4 - Answers: Total Score: 12 Risk of Readmission: High Risk Care Management Discharge Reason for Hospitalization: Hematuria, anemia Discharge Plan: SEAN called and spoke to [place] case packer, who stated that Cosmo is not service connected, but he is attached to a social services coordinator, Carine Olivarez ([phone]). SEAN provided this information to Cosmo. Per MD, he is medically cleared and can be discharged, Cosmo states his camper will be hooked up today. Cosmo will return home when medically cleared. He will transport with a friend via private vehicle. He will follow up with his PCP and discharge plan of care. Patient/Family Education Needs: Review discharge instructions, discuss Ask Me Three.
== END 2021-11-10 09:29 | disposition home or self-care (01) | DRG 811 ==
LOC: ER 10:38 → MS 17:34
PROVIDERS: Internal Medicine; Admitting Provider Internal Medicine; Emergency Provider Student in an Organized Health Care Education/Training Program; PCP Family Medicine; Visit Provider Internal Medicine
DX: D64.9 Anemia, unspecified (principal); I50.33 Acute on chronic diastolic (congestive) heart failure; N39.0 Urinary tract infection, site not specified; Z68.41 Body mass index [BMI] 40.0-44.9, adult; M47.12 Other spondylosis with myelopathy, cervical region; I48.20 Chronic atrial fibrillation, unspecified; I11.0 Hypertensive heart disease with heart failure; R33.9 Retention of urine, unspecified; R31.9 Hematuria, unspecified; Z79.02 Long term (current) use of antithrombotics/antiplatelets; G47.33 Obstructive sleep apnea (adult) (pediatric); G62.9 Polyneuropathy, unspecified; M48.061 Spinal stenosis, lumbar region without neurogenic claudication; F17.290 Nicotine dependence, other tobacco product, uncomplicated; F12.90 Cannabis use, unspecified, uncomplicated; F41.8 Other specified anxiety disorders; G25.81 Restless legs syndrome; E66.01 Morbid (severe) obesity due to excess calories; N40.0 Benign prostatic hyperplasia without lower urinary tract symptoms; M1A.9XX0 Chronic gout, unspecified, without tophus (tophi); E78.5 Hyperlipidemia, unspecified; B96.20 Unspecified Escherichia coli [E. coli] as the cause of diseases classified elsewhere; B96.89 Other specified bacterial agents as the cause of diseases classified elsewhere; R19.5 Other fecal abnormalities; I27.20 Pulmonary hypertension, unspecified; M17.0 Bilateral primary osteoarthritis of knee
CPT/HCPCS: 36415; 51702; 71275; 76770; 80048; 80053; 86850; 86900; 86901; 86920; 87040; 87637; 93005; 93306; 96375; 99223; 99285; 81003; 81015; 82607; 82728; 82746; 83540; 83550; 83605; 83735; 83880; 84484; 85014; 85018; 85025; 85379; 85610; 87086; 93010; 99222; 99232; 99233; 99239; J0696; J1940; J2270; J3490; P9016

== ENCOUNTER 2021-11-12 15:05 | Observation (INO) | payer MEDICARE, MEDICAID, SELFPAY ==
[2021-11-12 15:09] VITALS: BP 92/47; PULSE 79; RESP 20; TEMP 36.6; O2SAT 99
[2021-11-12] MEDS: Normal Saline 1,000 ML 1000 ML IV ×2 (16:41→17:37)
[2021-11-12 16:58] LABS: Bilirubin Negative (Negative); Blood Small (Negative); Clarity Cloudy (Clear); Glucose Negative (Negative); Ketones Negative (Negative); Leukocyte Esterase Large (Negative); Nitrite Positive (Negative); Specific Gravity 1.015 (1.005-1.025); Urobilinogen 0.2 EU/dL (Up TO 0.2); pH 6.5 (5-8)
[2021-11-12 17:15] LABS: Bacteria Many HPF (Negative); C & S Indicated? Yes; WBC >50 HPF (0-5)
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
[2021-11-12 17:25] LABS: ALT 27 U/L (16-63); AST 39 U/L (15-37); Alkaline Phosphatase 86 U/L (46-116); BUN 23 mg/dL (7-18); Bilirubin, Total 0.8 mg/dL (0.2-1.0); Calcium 9.3 mg/dL (8.5-10.1); Chloride 101 mmol/L (98-107); Estimated GFR 79.97 (mL/min/1.73m2); Glucose 79 mg/dL (74-106); Potassium 4.3 mmol/L (3.5-5.1); Sodium 136 mmol/L (136-145); Total Protein 7.9 g/dL (6.4-8.2)
[2021-11-12 17:35] VITALS: BP 121/75; PULSE 92; RESP 18; O2SAT 95
[2021-11-12 17:43] LABS: Source Nasal/Nares
[2021-11-12 18:17] LABS: COVID-19 PCR Negative (Negative)
[2021-11-12] MEDS: cefTAZidime 2,000 MG in Normal Saline 100 ML 200 MG IVPB (19:00)
[2021-11-12 19:02] LABS: Abs Immature Grans 0.03 10^3/uL (0.0-0.06); Absolute Basophil Count 0.04 10^3/uL (0.0-0.2); Absolute Lymphocyte Count 1.09 10^3/uL (1.2-3.4); Absolute Monocyte Count 0.54 10^3/uL (0.1-0.8); Absolute Neutrophil Count 5.43 10^3/uL (1.2-6.7); Basophils % 0.5; HCT 38.5 % (40.0-50.0); HGB 11.8 g/dL (13.5-17.5); Immature Grans % 0.4; Lactate 2.6 mmol/L (0.6-1.4); Lymphocytes % 14.7; MCH 27.6 pg (27.0-33.0); MCHC 30.6 % (32.0-36.0); MCV 90 fL (80-95); MPV 8.7 fL (8.0-11.0); Monocytes % 7.3; Neutrophils % 73.1; Platelet Count 256 10^3/uL (130-400); RBC 4.28 10^6/uL (4.36-5.78); RDW 19.8 % (11.8-14.1); RDW-SD 64.1 fL; WBC 7.43 10^3/uL (4.4-10.8)
[2021-11-12 19:43] VITALS: BP 128/65; PULSE 97; RESP 18; O2SAT 96
[2021-11-12 22:30] VITALS: BP 118/72; PULSE 83; RESP 20; TEMP 37.2; O2SAT 92
[2021-11-12 22:31] VITALS: BP 118/72; PULSE 83; RESP 20; TEMP 37.2; O2SAT 92
[2021-11-12 23:00] VITALS: BP 118/72; PULSE 83; RESP 20; TEMP 37.2; O2SAT 92
--- NOTE | 2021-11-12 23:28 | NUR.NOTE ---
Nursing Note: Straight Cath performed using sterile technique; = 2,700mL cloudy, light yellow urine noted. Initial urine output appeared thickened cloudy in color, eventually cleared after first few hundred mL emptied.
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
[2021-11-13] VITALS (8 sets, daily range): BP systolic 110–149; BP diastolic 72–98; PULSE 73–86; RESP 18–20; TEMP 36.8–37.8; O2SAT 92–96
--- NOTE | 2021-11-13 | DI.RAD_ITS ---
Exam(s) XR KNEE RT 4V AP,LAT,NATALIYA,PAT EXAM: XR KNEE RT 4V AP,LAT,NATALIYA,PAT CLINICAL HISTORY: New right knee pain and swelling. TECHNIQUE: 2D digital imaging was performed. Three views. COMPARISON: CR XR KNEE RT 3V AP,LAT,NATALIYA from 12/20/2020 FINDINGS: BONES: No acute fracture is present. No bony destructive lesion is seen. JOINTS: She severe lateral subluxation/dislocation of the patella, likely medial patellar retinacular disruption peer.. No joint effusion is seen. SOFT TISSUE: Marked anterior soft tissue swelling, less prominent than prior.. Vascular calcificat ions. IMPRESSION: Lateral patellar dislocation. DATA REPOSITORY: RADIATION DOSE DELIVERED:
--- NOTE | 2021-11-13 00:16 | NUR.NOTE ---
Nursing Note: Home CPAP plugged in and given to patient, patient currently wearing CPAP. No issues.
--- NOTE | 2021-11-13 00:18 | NUR.NOTE ---
Nursing Note: Tele placed.
--- NOTE | 2021-11-13 01:31 | NUR.NOTE ---
Nursing Note: Next straight catheterization will be at 06:00
--- NOTE | 2021-11-13 06:26 | NUR.NOTE ---
Nursing Note: 1700mL noted on most recent straight cath at ~ 04:15. Patient was planned to have straight cath at 06:00, but reported feeling 'full' earlier. Straight cath performed using sterile technique, patient tolerated very well.
[2021-11-13 07:06] LABS: Abs Immature Grans 0.02 10^3/uL (0.0-0.06); Absolute Basophil Count 0.04 10^3/uL (0.0-0.2); Absolute Eosinophil Count 0.23 10^3/uL (0.0-0.7); Absolute Lymphocyte Count 1.06 10^3/uL (1.2-3.4); Absolute Monocyte Count 0.56 10^3/uL (0.1-0.8); Absolute Neutrophil Count 5.55 10^3/uL (1.2-6.7); Basophils % 0.5; Eosinophils % 3.1; HCT 32.8 % (40.0-50.0); HGB 10.2 g/dL (13.5-17.5); Immature Grans % 0.3; Lymphocytes % 14.2; MCH 27.9 pg (27.0-33.0); MCHC 31.1 % (32.0-36.0); MCV 90 fL (80-95); MPV 8.1 fL (8.0-11.0); Monocytes % 7.5; Neutrophils % 74.4; Platelet Count 303 10^3/uL (130-400); RBC 3.66 10^6/uL (4.36-5.78); RDW 19.4 % (11.8-14.1); WBC 7.46 10^3/uL (4.4-10.8)
[2021-11-13 07:20] LABS: Magnesium 2.2 mg/dL (1.8-2.4)
[2021-11-13 07:26] LABS: ALT 28 U/L (16-63); AST 33 U/L (15-37); Albumin 2.6 g/dL (3.4-5.0); Alkaline Phosphatase 76 U/L (46-116); Anion Gap 8.4 mmol/L (3-11); BUN 19 mg/dL (7-18); Bilirubin, Total 0.6 mg/dL (0.2-1.0); CO2 27.6 mmol/L (21.0-32.0); Calcium 8.7 mg/dL (8.5-10.1); Chloride 102 mmol/L (98-107); Estimated GFR 79.97 (mL/min/1.73m2); Glucose 103 mg/dL (74-106); Potassium 4.1 mmol/L (3.5-5.1); Sodium 138 mmol/L (136-145)
[2021-11-13] MEDS: Lidocaine 5% Patch 2 PATCH TP (07:56)
[2021-11-13] MEDS: Tamsulosin 0.4 MG CAPCR PO (07:57)
[2021-11-13] MEDS: Finasteride 5 MG TAB PO (07:57)
[2021-11-13] MEDS: Ferrous Sulfate 325 MG TAB PO (07:57)
[2021-11-13] MEDS: Pantoprazole 40 MG TABCR PO ×2 (07:57→20:06)
[2021-11-13] MEDS: buPROPion-XL 150 MG TABCR PO (07:57)
[2021-11-13] MEDS: Gabapentin 300 MG CAP 600 MG PO ×2 (07:57→20:06)
[2021-11-13] MEDS: Magnesium Oxide 400 MG TAB PO (07:57)
[2021-11-13] MEDS: Furosemide 40 MG TAB PO ×2 (07:57→15:56)
[2021-11-13] MEDS: Multivitamin TAB 1 TAB PO (07:57)
[2021-11-13] MEDS: Spironolactone 25 MG TAB PO (07:57)
[2021-11-13] MEDS: Escitalopram 20 MG TAB PO (07:57)
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
[2021-11-13] MEDS: Cyanocobalamin 500 MCG TAB 1000 MCG PO (09:29)
[2021-11-13] MEDS: Normal Saline 500 ML 30 ML IV (09:29)
[2021-11-13] MEDS: cefTAZidime 2,000 MG in Normal Saline 100 ML 200 MG IVPB ×2 (09:29→20:06)
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
--- NOTE | 2021-11-13 15:23 | W.PM.PROGNOT ---
Date of Service Date of service: 11/13/21 Time of Service: 15:23 Assessment and Plan Assessment and plan (1) Sepsis associated hypotension: Status: Acute Assessment and plan: Lactate elevated; Review CRP/lactate/procalcitonin tomorrow. (2) Recurrent UTI (urinary tract infection): Status: Acute Assessment and plan: Last visit: E. Coli, citrobacter, mixed gram positive karri, present on admission, in setting of urinary retention ABX started - cefpodoxime IV (3) Incomplete emptying of bladder: Status: Chronic Assessment and plan: The patient would benefit from outpatient suprapubic tube by IR.. Bladder scans - nursing reports mostly not accurate- he had a scan of 200 and when cathed he had what he reports was 2700 ml. The next time it was 1600. Increased bladder scans to every 3h. On discharge, to resume self-catheterization. (4) General weakness: Status: Acute Assessment and plan: C/O generalized weakness - PT consult ordered (5) High serum lactate: Status: Acute Assessment and plan: Trend (6) Obesity, morbid, BMI 40.0-49.9: Status: Acute Assessment and plan: Nutrition consult (7) Acute diastolic CHF (congestive heart failure): Status: Acute Assessment and plan: Stable on current regimen (8) DVT prophylaxis: Status: Acute Assessment and plan: SCD in light of recent GIB and obs - no anticoag (9) Discharge planning issues: Status: Acute Assessment and plan: Home with spouse when stable Subjective Subjective Patient reports: feels better and tolerating a regular diet; denies flatus, diarrhea or vomiting Interval history since last seen: States he is here because his right knee and his left ankle, both alf issues, are increasingly making it difficult for him to walk. He states he was unable to walk last night and that is why he is here. The UTI was secondary; he had no symptoms. Exam Const General: cooperative, comfortable, no acute distress and ill appearing chronically Orientation: alert, awake and oriented x3 HENMT Head: normal to inspection, normocephalic and atraumatic Face and sinus: normal facial exam Mouth: moist mucous membranes Eyes General: appearance normal, both eyes and all related structures Conjunctivae: conjunctivae normal Neck Neck: normal visual inspection, full ROM, no meningeal signs, trachea midline and supple Resp Effort & Inspection: normal respiratory effort and able to speak in complete sentences Auscultation: diminished lung sounds bilaterally in the lower lung florentino Cardio Rate: regular rate Rhythm: regular rhythm GI Inspection: obesity Palpation: soft and nontender Back/Spine/Pelvis Back: No back tenderness Skin General skin exam: no rashes or lesions noted Neuro General: patient alert, patient awake, patient oriented x3, moves all extremities and no focal motor deficits Cognition: normal cognition Speech: speech normal Motor: muscle tone normal throughout Sensory Exam: no sensory deficits noted Extrem General: full ROM, no calf tenderness and pedal edema bilaterally pitting and 1+ Psych Appearance: grossly normal Mental Status: mental status grossly normal Objective Last Vital Signs Temp 37.1 C 11/13/21 08:30 Pulse 86 11/13/21 08:30 Resp 19 11/13/21 08:30 BP 112/73 11/13/21 08:30 Pulse Ox 96 11/13/21 08:30 Laboratory Results - last 24 hr 11/12/21 11/12/21 11/12/21 16:30 17:05 17:38 WBC RBC Hgb Hct MCV MCH MCHC RDW Plt Count MPV Immature Gran % Neutrophils % Lymphocytes % Monocytes % Eosinophils % Basophils % Nucleated RBC % Absolute Neutrophils Absolute Lymphocytes Absolute Monocytes Absolute Eosinophils Absolute Basophils VBG Lactate Sodium 136 Potassium 4.3 Chloride 101 Carbon Dioxide 28.0 Anion Gap 7.0 BUN 23 H Creatinine 1.0 Est GFR (CKD-EPI 2020) 79.97 Glucose 79 Calcium 9.3 Magnesium Total Bilirubin 0.8 AST 39 H ALT 27 Alkaline Phosphatase 86 Total Protein 7.9 Albumin 3.0 L Urine Color Yellow Urine Clarity Cloudy Urine pH 6.5 Ur Specific Clarence 1.015 Urine Protein Trace H Urine Ketones Negative Urine Blood Small H Urine Nitrite Positive H Urine Bilirubin Negative Urine Urobilinogen 0.2 Ur Leukocyte Esterase Large H Urine RBC Not Applicable Urine WBC >50 H Ur Epithelial Cells Not Applicable Urine Crystals Not Applicable Urine Bacteria Many Urine Mucus Not Applicable Ur Culture Indicated? Yes Urine Glucose Negative COVID-19 Source Nasal/Nares SARS-CoV-2 (PCR) Negative 11/12/21 11/12/21 11/13/21 18:52 18:52 06:45 WBC 7.43 RBC 4.28 L Hgb 11.8 L Hct 38.5 L MCV 90 MCH 27.6 MCHC 30.6 L RDW 19.8 H Plt Count 256 MPV 8.7 Immature Gran % 0.4 Neutrophils % 73.1 Lymphocytes % 14.7 Monocytes % 7.3 Eosinophils % 4.0 Basophils % 0.5 Nucleated RBC % 0.0 Absolute Neutrophils 5.43 Absolute Lymphocytes 1.09 L Absolute Monocytes 0.54 Absolute Eosinophils 0.30 Absolute Basophils 0.04 VBG Lactate 2.6 H* Sodium Potassium Chloride Carbon Dioxide Anion Gap BUN Creatinine Est GFR (CKD-EPI 2020) Glucose Calcium Magnesium 2.2 Total Bilirubin AST ALT Alkaline Phosphatase Total Protein Albumin Urine Color Urine Clarity Urine pH Ur Specific Clarence Urine Protein Urine Ketones Urine Blood Urine Nitrite Urine Bilirubin Urine Urobilinogen Ur Leukocyte Esterase Urine RBC Urine WBC Ur Epithelial Cells Urine Crystals Urine Bacteria Urine Mucus Ur Culture Indicated? Urine Glucose COVID-19 Source SARS-CoV-2 (PCR) 11/13/21 11/13/21 06:45 06:45 WBC 7.46 RBC 3.66 L Hgb 10.2 L Hct 32.8 L MCV 90 MCH 27.9 MCHC 31.1 L RDW 19.4 H Plt Count 303 MPV 8.1 Immature Gran % 0.3 Neutrophils % 74.4 Lymphocytes % 14.2 Monocytes % 7.5 Eosinophils % 3.1 Basophils % 0.5 Nucleated RBC % 0.0 Absolute Neutrophils 5.55 Absolute Lymphocytes 1.06 L Absolute Monocytes 0.56 Absolute Eosinophils 0.23 Absolute Basophils 0.04 VBG Lactate Sodium 138 Potassium 4.1 Chloride 102 Carbon Dioxide 27.6 Anion Gap 8.4 BUN 19 H Creatinine 1.0 Est GFR (CKD-EPI 2020) 79.97 Glucose 103 Calcium 8.7 Magnesium Total Bilirubin 0.6 AST 33 ALT 28 Alkaline Phosphatase 76 Total Protein 7.0 Albumin 2.6 L Urine Color Urine Clarity Urine pH Ur Specific Clarence Urine Protein Urine Ketones Urine Blood Urine Nitrite Urine Bilirubin Urine Urobilinogen Ur Leukocyte Esterase Urine RBC Urine WBC Ur Epithelial Cells Urine Crystals Urine Bacteria Urine Mucus Ur Culture Indicated? Urine Glucose COVID-19 Source SARS-CoV-2 (PCR) Reviewed Pertinent PMH: Yes
[2021-11-13] MEDS: Pramipexole 0.5 MG TAB 2 MG PO (17:44)
[2021-11-13 19:52] LABS: Lab Add On Test DONE
[2021-11-13] MEDS: Normal Saline Flush 10 ML SYR IVP (20:07)
[2021-11-13 20:28] LABS: C-Reactive Protein 5.22 mg/dL (0.0-0.3)
[2021-11-13 21:25] LABS: Procalcitonin < 0.1 ng/mL
[2021-11-13] MEDS: Patch Removal 2 EACH TP (21:37)
[2021-11-14] VITALS (8 sets, daily range): BP systolic 104–147; BP diastolic 63–91; PULSE 70–93; RESP 16–18; TEMP 36.5–37.3; O2SAT 91–93
[2021-11-14 07:28] LABS: Abs Immature Grans 0.02 10^3/uL (0.0-0.06); Absolute Basophil Count 0.04 10^3/uL (0.0-0.2); Absolute Eosinophil Count 0.32 10^3/uL (0.0-0.7); Absolute Lymphocyte Count 1.15 10^3/uL (1.2-3.4); Absolute Monocyte Count 0.64 10^3/uL (0.1-0.8); Basophils % 0.7; Eosinophils % 5.3; HCT 36.9 % (40.0-50.0); HGB 11.3 g/dL (13.5-17.5); Immature Grans % 0.3; Lymphocytes % 18.9; MCH 27.4 pg (27.0-33.0); MCHC 30.6 % (32.0-36.0); MCV 89 fL (80-95); Monocytes % 10.5; Neutrophils % 64.3; Platelet Count 322 10^3/uL (130-400); RBC 4.13 10^6/uL (4.36-5.78); RDW 19.1 % (11.8-14.1); RDW-SD 62.3 fL; WBC 6.07 10^3/uL (4.4-10.8)
[2021-11-14 07:46] LABS: Anion Gap 6.9 mmol/L (3-11); BUN 19 mg/dL (7-18); CO2 30.1 mmol/L (21.0-32.0); CREATININE 1.1 mg/dL (0.70-1.30); Calcium 9.5 mg/dL (8.5-10.1); Chloride 102 mmol/L (98-107); Estimated GFR 71.32 (mL/min/1.73m2); Glucose 92 mg/dL (74-106); Potassium 4.2 mmol/L (3.5-5.1); Sodium 139 mmol/L (136-145)
[2021-11-14 07:48] LABS: C-Reactive Protein 8.42 mg/dL (0.0-0.3); Magnesium 2.2 mg/dL (1.8-2.4)
[2021-11-14 08:16] LABS: Procalcitonin < 0.1 ng/mL
--- NOTE | 2021-11-14 08:40 | OTTR_ITS ---
Occupational Therapy Notes Occupational Therapy Inpatient Treatment Note Date: 11/14/21 PRECAUTIONS: Fall, standard, full SUBJECTIVE: Pt states that he is doing okay, he has a knee brace on his leg and states that he is concerned about his balance with his ADLs and states that this is his biggest limitation. OBJECTIVE: PAIN:c/o pain in (B) LE FUNCTIONAL MOBILITY Sit-stand: (I) Stand-sit: (I) Bed-Chair: FWW SBA Chair-bed: FWW SBA OT provided pt with sock aid, dressing stick and long handled shoe horn with education and training on the dressing stick for dressing routines. BATHING: Upper Body: (I) face and (B) UE. Pt would like to shower today. He maintained ideal standing tolerance at the sink with one hand support at all times for balance. No LOB with support at todays session. 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 EATING: sitting in chair (I) with food to mouth, chewing and swallowing. TREATMENT CODES/TIME: [id number], 33 minutes Meg Art OTR/L [facility]
[2021-11-14] MEDS: Normal Saline Flush 10 ML SYR IVP ×2 (09:13→20:35)
[2021-11-14] MEDS: Lidocaine 5% Patch 2 PATCH TP (09:13)
[2021-11-14] MEDS: cefTAZidime 2,000 MG in Normal Saline 100 ML 200 MG IVPB ×2 (09:13→20:35)
[2021-11-14] MEDS: Ferrous Sulfate 325 MG TAB PO (09:14)
[2021-11-14] MEDS: Pantoprazole 40 MG TABCR PO ×2 (09:14→20:36)
[2021-11-14] MEDS: Magnesium Oxide 400 MG TAB PO (09:14)
[2021-11-14] MEDS: Gabapentin 300 MG CAP 600 MG PO ×2 (09:14→20:36)
[2021-11-14] MEDS: Cyanocobalamin 500 MCG TAB 1000 MCG PO (09:15)
[2021-11-14] MEDS: Furosemide 40 MG TAB PO ×2 (09:15→16:31)
[2021-11-14] MEDS: Multivitamin TAB 1 TAB PO (09:15)
[2021-11-14] MEDS: Escitalopram 20 MG TAB PO (09:15)
[2021-11-14] MEDS: buPROPion-XL 150 MG TABCR PO (09:15)
[2021-11-14] MEDS: Tamsulosin 0.4 MG CAPCR PO (09:15)
[2021-11-14] MEDS: Spironolactone 25 MG TAB PO (09:15)
[2021-11-14] MEDS: Finasteride 5 MG TAB PO (09:15)
--- NOTE | 2021-11-14 09:48 | PDOC.CMPRO ---
- If Service Date Differs Date of service: 11/14/21 Time of Service: 09:48 Care Management Progress Note S/O:Cosmo was sitting up in a chair when CM met with him. He was pleasant and agreeable to conversation. Cosmo chose 4 [facility] facilities to send referrals to from the list provided by CM yesterday. He and Anel [facility] and the referrals were sent as requested. Cosmo has been in good spirits and was able to work with OT on ADLs. He verbalized being hopeful that he will receive a bed offer from one of his chosen facilities. He understands that he needs to get stronger and improve his balance before he can safely return to his home ([facility]). A: Cosmo is a 71 year old man admitted on 11/12/21 with a UTI P:Anticipate Cosmo will transfer to a SNF for short term rehab prior to returning to his camper. He will follow up with the facility provider and plan of care. Transport will be determined by the final discharge plan. Referrals have been sent to [facility] [place] and [facility] at Cosmo and Anel's request. CM will continue to support Cosmo and assess for ongoing discharge concerns.
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
[2021-11-14] MEDS: Nystatin POWDER 15 GM JAR TP ×2 (14:52→21:33)
[2021-11-14] MEDS: Pramipexole 0.5 MG TAB 2 MG PO (17:28)
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
[2021-11-14] MEDS: Normal Saline 500 ML 30 ML IV (20:36)
[2021-11-15 04:05] VITALS: BP 124/80; PULSE 91; RESP 18; TEMP 36.4; O2SAT 90
[2021-11-15 07:55] VITALS: BP 119/71; PULSE 85; RESP 18; TEMP 36.4; O2SAT 93
[2021-11-15] MEDS: Normal Saline 500 ML 30 ML IV (08:32)
[2021-11-15] MEDS: Lidocaine 5% Patch 2 PATCH TP (08:34)
[2021-11-15] MEDS: Nystatin POWDER 15 GM JAR TP (08:35)
[2021-11-15] MEDS: Escitalopram 20 MG TAB PO (08:35)
[2021-11-15] MEDS: Cyanocobalamin 500 MCG TAB 1000 MCG PO (08:35)
[2021-11-15] MEDS: cefTAZidime 2,000 MG in Normal Saline 100 ML 200 MG IVPB (08:35)
[2021-11-15] MEDS: Finasteride 5 MG TAB PO (08:35)
[2021-11-15] MEDS: Gabapentin 300 MG CAP 600 MG PO (08:36)
[2021-11-15] MEDS: Tamsulosin 0.4 MG CAPCR PO (08:36)
[2021-11-15] MEDS: Multivitamin TAB 1 TAB PO (08:36)
[2021-11-15] MEDS: Pantoprazole 40 MG TABCR PO (08:36)
[2021-11-15] MEDS: Magnesium Oxide 400 MG TAB PO (08:36)
[2021-11-15] MEDS: Spironolactone 25 MG TAB PO (08:36)
[2021-11-15] MEDS: buPROPion-XL 150 MG TABCR PO (08:36)
[2021-11-15] MEDS: Furosemide 40 MG TAB PO ×2 (08:36→16:17)
[2021-11-15] MEDS: Ferrous Sulfate 325 MG TAB PO (08:36)
--- NOTE | 2021-11-15 08:54 | RESPIRATORY ---
Pt's own ResMed [id number] Vauto BiPAP Max IPAP: 25 cmH2O Min EPAP: 14 cmH2O PS: 4 cmH2O No O2 bleed in No Humidification on this unit Mirage FX nasal mask, standard size Pt's machine was issued to him by [facility].
--- NOTE | 2021-11-15 10:25 | PDOC.CMPRO ---
- If Service Date Differs Date of service: 11/15/21 Time of Service: 10:25 Care Management Progress Note S/O:Cosmo was sitting up in a chair when CM met with him. He was pleasant and agreeable to conversation. A: Cosmo is a 71 year old man admitted on 11/12/21 with a UTI P:Anticipate Cosmo will transfer to a SNF for short term rehab prior to returning to his camper. He will follow up with the facility provider and plan of care. Transport will be determined by the final discharge plan. Referrals have been sent to [facility] at Cosmo and Anel's request. CM will continue to support Cosmo and assess for ongoing discharge concerns.
[2021-11-15 11:34] VITALS: BP 115/70; PULSE 89; RESP 19; TEMP 36.6; O2SAT 93
--- NOTE | 2021-11-15 13:01 | PT.INTREAT ---
PT Notes Visit Reasons: UTI, Generalized Weakness, Hypotension Inpatient Physical Therapy Treatment Note [facility] Date: 11/15/21 SUBJECTIVE: Cosmo states that he is doing ok. He feels as though the knee braces are helpful as he is walking. PROVIDER CONTRACTING CONSULTANT came in room briefly and stated he was going home today, which brought on some questions, and confusion. He and his daughter thought he was going to SNF for continued PT. He reports that he is having some housing challenges. His camper is not fit for living in all winter. He is on waiting lists. He reports that he has a hard time getting into and out of his camper, due to poor steps. I did encourage he find someone to build some temporary steps. OBJECTIVE: [] BED MOBILITY/TRANSFERS sitting in recliner. Sit-stand: S Stand-sit: S GAIT Assistive Device: FWW Weight bearing: AT Assist: SBA Distance: 540' ASSESSMENT: tolerated session well. Independent with transfers and mobility. He reported 3 episodes of knee buckling without a LOB during our walk, however this was towards the end of our 2nd lap and he was beginning to fatigue. [place] as though the brace was of great benefit. PLAN: continue per PT POC. TREATMENT CODE/TIME: 25 min [id number]
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
--- NOTE | 2021-11-15 15:17 | PDOC.CMDIS ---
- If Service Date Differs Date of service: 11/15/21 Time of Service: 15:17 LACE Index Scoring Tool - Questions: Length of Stay (in days): 3 Acuity (Admit via E.D.?): Yes Comorbidities: Congestive Heart Failure E.D. Visits: 5 - Answers: Total Score: 12 Risk of Readmission: High Risk Care Management Discharge Reason for Hospitalization: UTI Discharge Plan: Cosmo will be discharged back to his camper with no new services. He will follow up with his community providers and plan of care and transport with his daughter Anel. Patient/Family Education Needs: Review of discharge instructions, medications, limitations, activity, follow up plan, Ask Me Three
--- NOTE | 2021-11-15 18:29 | PGE_ITS ---
Date of Service Date of service: 11/14/21 Time of Service: 14:00 Assessment and Plan Assessment and plan (1) Sepsis associated hypotension: Status: Acute Assessment and plan: CRP 8.42 procalcitonin <0.1. (2) Recurrent UTI (urinary tract infection): Status: Acute Assessment and plan: Last visit: E. Coli, citrobacter, mixed gram positive karri, present on admission, in setting of urinary retention ABX started - cefpodoxime IV Awaiting urine cx for definitive abx (3) Incomplete emptying of bladder: Status: Chronic Assessment and plan: The patient would benefit from outpatient suprapubic tube by IR, although his abdomen has had many surgeries and it is possile there will be greater issues. Bladder scans - nursing reports mostly not accurate- he had a scan of 200 and when cathed he had what he reports was 2700 ml. The next time it was 1600. Increased bladder scans to every 3h. On discharge, to resume self-catheterization. (4) General weakness: Status: Acute Assessment and plan: C/O generalized weakness - PT consult ordered (5) High serum lactate: Status: Acute Assessment and plan: Trend (6) Obesity, morbid, BMI 40.0-49.9: Status: Acute Assessment and plan: Nutrition /exercise/consult (7) Acute diastolic CHF (congestive heart failure): Status: Acute Assessment and plan: Stable on current regimen (8) DVT prophylaxis: Status: Acute Assessment and plan: SCD in light of recent GIB and obs - no anticoag (9) Discharge planning issues: Status: Acute Assessment and plan: Home when stable Declines HH Subjective Subjective Patient reports: no new complaints Interval history since last seen: concerned about his right knee more than his UTI. He has had non compliance s/p right knee replacement and with that has torn his quadracept muscles in the righ t leg. Dr Chi saw him and gave him his options - see Dr Chi's note) At the current time he is able to transition to oral meds for his UTI. We discussed in length the reason he has to abx and why. We reviewed self catheterization. Exam Const General: cooperative, comfortable, no acute distress and ill appearing chronically Nutritional Appearance: obese Orientation: alert, awake and oriented x3 HENMT Head: normal to inspection, normocephalic and atraumatic Face and sinus: normal facial exam Mouth: moist mucous membranes Eyes General: appearance normal, both eyes and all related structures Conjunctivae: conjunctivae normal Neck Neck: normal visual inspection, full ROM, no meningeal signs, trachea midline and supple Resp Effort & Inspection: normal respiratory effort and able to speak in complete sentences Auscultation: diminished lung sounds bilaterally in the lower lung florentino Cardio Rate: regular rate Rhythm: regular rhythm GI Inspection: obesity Palpation: soft and nontender Back/Spine/Pelvis Back: No back tenderness Skin General skin exam: no rashes or lesions noted Neuro General: patient alert, patient awake, patient oriented x3, moves all extremities and no focal motor deficits Cognition: normal cognition Speech: speech normal Motor: muscle tone normal throughout Sensory Exam: no sensory deficits noted Extrem General: full ROM, no calf tenderness and pedal edema bilaterally pitting and 1+ Psych Appearance: grossly normal Mental Status: mental status grossly normal Objective Last Vital Signs Temp 36.6 C 11/15/21 11:34 Pulse 89 11/15/21 11:34 Resp 19 11/15/21 11:34 BP 115/70 11/15/21 11:34 Pulse Ox 93 11/15/21 11:34
--- NOTE | 2021-11-17 11:19 | PT.INDS ---
PT Notes Visit Reasons: UTI, Generalized Weakness, Hypotension Physical Therapy Inpatient Discharge Summary Treatment Dates: 11/14/2020 - 11/15/21 Referring Doctor: Paxton Hernandez MD PT Orders: PT CONSULT: per fall risk assessment. Precautions: WBAT on B LE. Fall risk. R knee brace on when OOB. This document serves as a summary of care. No PT services were provided on this date. Patient Profile/Admitting Diagnosis: Cosmo is a 71-year-old male with multiple co-morbidities including TBI, spinal stenosis, and cervical spondylosis, and history of R knee surgeries who came back to the ED on 11/12/2021 due to worsening generalized weakness and dark, foul urine. Patient is diagnosed with sepsis associated with hypotension, recurrent UTI, incomplete emptying of bladder, generalized weakness, high serum lactate, obesity, and acute diastolic congestive heart failure. He participated in 2 PT sessions over the course of 2 days, with improvements in mobility and safety, sufficient to allow for safe transition back to the community with services. Home situation: Lives alone in a small camper with two steps to enter. Uses a FWW inside and utilizes his 4WW outside. Daughter lives close by and is involved with patient's care. War . Equipment Owned/DME: 4WW, FWW Subjective: none obtained as patient discharged home 11/15/21 Objective: ROM: Right Lower Extremity: Hip flexion about 20 beyind 90(while seated on bedside chair) limited by abdominal pannus. Hip abduction WFL. Knee flexion -20 to 90 degrees. Knee extension -20 degrees. Ankle dorsiflexion to neutral. Ankle plantarflexion WFL. Left Lower Extremity: Hip flexion about 20 beyind 90(while seated on bedside chair) limited by abdominal pannus. Hip abduction WFL. Knee flexion WFL. Knee extension WFL. Ankle dorsiflexion WFL. Ankle plantarflexion WFL. Strength: Right Lower Extremity: Hip flexors 3-/5. Hip abductors 4-/5. Knee flexors 3-/5. Knee extensors 3-/5. Ankle dorsiflexors 4-/5. Ankle plantarflexors 4-/5. Left Lower Extremity: Hip flexors 3-/5. Hip abductors 4-/5. Knee flexors 4-/5. Knee extensors 4-/5. Ankle dorsiflexors 4-/5. Ankle plantarflexors 4-/5. Sensation: Intact as to pain and pressure on bilateral lower extremities. Denies any numbness nor tingling in B LE. Bed Mobility/Transfers: Sit to stand: Independent Stand to sit: Independent ? GAIT? Assistive Device: FWW? Weight bearing: AT Assist: SBA ? Distance:? 540'? ? Balance: Static Sitting: Normal Dynamic Sitting: Normal Static Standing: Fair Dynamic Standing: Fair Assessment:? Patient presented with stable R quadriceps deficit with h/o multiple falls at home. He participated in 2 PT sessions over the course of 2 days, with improvements in mobility and safety, sufficient to allow for safe transition back to the community with services. Requires continued PT services through to maximize safety and reduce fall risk. Goals: Goals x 2 weeks 1. Independent gait on level surface with use of FWW for at least 300 feet without report of pain nor dyspnea (met) 2. Independent stair negotiation while holding onto one rail for at least 3 steps without report of pain nor dyspnea (not assessed) 3. Good static and dynamic standing balance/tolerance (progressing toward) 4. Increase core strength to 3+/5 and B LE strength to 4/5 to increase safety of mobility performance (not met) Plan of Care/Treatment Plan: D/C home with PT TREATMENT CODE/TIME:? none Thank you for the opportunity to participate in the care of this patient. Aubree Beckett PT, DPT [facility] [place], [place]
== END 2021-11-15 16:20 | disposition home or self-care (01) ==
LOC: ER 21:36 → MS 11-13 05:54
PROVIDERS: Nurse Practitioner Family; Admitting Provider Family Medicine; Emergency Provider Physician Assistant; PCP Family Medicine; Visit Provider Family Medicine
DX: A41.9 Sepsis, unspecified organism (principal); N39.0 Urinary tract infection, site not specified; I50.31 Acute diastolic (congestive) heart failure; S76.111A Strain of right quadriceps muscle, fascia and tendon, initial encounter; T84.84XA Pain due to internal orthopedic prosthetic devices, implants and grafts, initial encounter; R53.1 Weakness; R41.89 Other symptoms and signs involving cognitive functions and awareness; E66.01 Morbid (severe) obesity due to excess calories; Z68.41 Body mass index [BMI] 40.0-44.9, adult; D64.9 Anemia, unspecified; G62.9 Polyneuropathy, unspecified; M48.02 Spinal stenosis, cervical region; M48.061 Spinal stenosis, lumbar region without neurogenic claudication; R33.9 Retention of urine, unspecified; F17.220 Nicotine dependence, chewing tobacco, uncomplicated; F12.90 Cannabis use, unspecified, uncomplicated; I48.20 Chronic atrial fibrillation, unspecified; G47.33 Obstructive sleep apnea (adult) (pediatric); M22.01 Recurrent dislocation of patella, right knee; Z79.02 Long term (current) use of antithrombotics/antiplatelets; Z87.440 Personal history of urinary (tract) infections; Z79.899 Other long term (current) drug therapy; X50.0XXA Overexertion from strenuous movement or load, initial encounter; B96.89 Other specified bacterial agents as the cause of diseases classified elsewhere; Z20.822 Contact with and (suspected) exposure to COVID-19
CPT/HCPCS: 36415; 80048; 80053; 84145; 87040; 87077; 87635; 96361; 96365; 96366; 97162; 97166; 97530; 97535; 99214; 99285; 73564; 81003; 81015; 83605; 83735; 85025; 86140; 87070; 87086; 87186; 87205; 99220; 99225; G0378; J0713; J3490

== ENCOUNTER 2021-11-21 16:13 | Inpatient (IN) | payer MEDICARE, MEDICAID, SELFPAY ==
[2021-11-21 16:24] VITALS: BP 140/79; PULSE 98; RESP 20; TEMP 36.1; O2SAT 95
--- NOTE | 2021-11-21 16:30 | DI.CT_ITS ---
Exam(s) CT ABDOMEN PELVIS W EXAM: CT ABDOMEN PELVIS W CLINICAL HISTORY: epigastric pain. TECHNIQUE: Imaging Protocol: Axial computed tomography images with coronal and sagittal reformatted images were created and reviewed CONTRAST MATERIAL: Intravenous: Omnipaque 350 Contrast volume:100 ml Oral: no COMPARISON: CT CT ABDOMEN PELVIS W from 08/04/[address] CHEST PE CTA from 11/06/2021 FINDINGS: ABDOMEN: Lung Bases: Atelectasis right lung base. Heart is enlarged. Liver: Normal density. No measurable mass. Small cysts Gallbladder and biliary tract: Cholelithiasis. No gallbladder wall thickening or abnormal distention . No biliary dilatation. Pancreas: Normal density, no abnormal calcifications or inflammatory process. Spleen: Normal. Kidneys: Normal size, contour and axis. No radiodense stones or obstructive uropathy. No masses seen. Adrenal glands: No masses seen. Abdominal Aorta: Abdominal portion non-dilated. Soft tissues: Marked abdominal wall diastasis similar to prior. Sebaceous cyst posterior lower chest . PELVIS: Bladder: Mild wall thickening, similar to prior. No calculi.No focal mass. Bowel: Dilated stomach and proximal to mid small bowel. Distal small bowel decompressed. Moderate q uantity of stool. Mild diverticulosis. No bowel wall thickening. Appendix normal. Peritoneal cavity: Surgical clips anterior mid abdominal mesentery. No ascites, collection or mesent giovanni inflammatory response. Bones: Posterior fusion hardware at L2 through L4. No compression fracture. Degenerative changes. Reproductive organs: Within normal limits. Lymph nodes: Unremarkable. Impression: Findings consistent with a partial small bowel obstruction in the mid small bowel. RADIATION DOSE DELIVERED: 2,708.42mGy.cm Total DLP DATA REPOSITORY: All CT scans at this facility are submitted to the National Radiology Data Registry (NRDR) Dose Index Registry (DIR) with the [employer] (A[employer]). RADIATION OPTIMIZATION: All CT scans at this facility use at least one of these dose optimization te chniques: automated exposure control; mA and/or kV adjustment per patient size (includes targeted exa ms where dose is matched to clinical indication); or iterative reconstruction.
[2021-11-21] MEDS: Normal Saline 500 ML IV ×2 (16:50→16:58)
[2021-11-21 16:58] LABS: Abs Immature Grans 0.05 10^3/uL (0.0-0.06); Absolute Basophil Count 0.03 10^3/uL (0.0-0.2); Absolute Eosinophil Count 0.03 10^3/uL (0.0-0.7); Absolute Lymphocyte Count 0.74 10^3/uL (1.2-3.4); Absolute Monocyte Count 0.65 10^3/uL (0.1-0.8); Absolute Neutrophil Count 9.71 10^3/uL (1.2-6.7); Basophils % 0.3; Eosinophils % 0.3; HCT 44.4 % (40.0-50.0); HGB 14.4 g/dL (13.5-17.5); Immature Grans % 0.4; Lymphocytes % 6.6; MCH 27.9 pg (27.0-33.0); MCHC 32.4 % (32.0-36.0); MCV 86 fL (80-95); Monocytes % 5.8; Neutrophils % 86.6; Platelet Count 376 10^3/uL (130-400); RBC 5.16 10^6/uL (4.36-5.78); RDW-SD 56.6 fL; WBC 11.21 10^3/uL (4.4-10.8)
[2021-11-21] MEDS: Normal Saline Flush 10 ML SYR IVP ×4 (16:58→23:31)
[2021-11-21 17:17] LABS: ALT 32 U/L (16-63); AST 27 U/L (15-37); Albumin 3.9 g/dL (3.4-5.0); Alkaline Phosphatase 103 U/L (46-116); BUN 38 mg/dL (7-18); Bilirubin, Total 0.6 mg/dL (0.2-1.0); Calcium 10.2 mg/dL (8.5-10.1); Chloride 98 mmol/L (98-107); Estimated GFR 79.97 (mL/min/1.73m2); Glucose 136 mg/dL (74-106); Magnesium 2.2 mg/dL (1.8-2.4); Potassium 4.5 mmol/L (3.5-5.1); Sodium 135 mmol/L (136-145); Total Protein 10.1 g/dL (6.4-8.2); Troponin I < 50 ng/L (<or=60)
[2021-11-21] MEDS: Pramipexole 0.5 MG TAB 2 MG PO (17:35)
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
[2021-11-21] MEDS: Omnipaque 350 MG/ML 500 ML BTL-Imaging package IJ (18:50)
--- NOTE | 2021-11-21 18:55 | DI.VRAD_ITS ---
PROCEDURE INFORMATION: Exam: CT Abdomen And Pelvis With Contrast Exam date and time: 11/21/2021 17:53 Age: 71 years old Clinical indication: Abdominal pain; Patient HX: Epigastric pain/ food poisoning TECHNIQUE: Imaging protocol: Computed tomography of the abdomen and pelvis with contrast. Radiation optimization: All CT scans at this facility use at least one of these dose optimization techniques: automated exposure control; mA and/or kV adjustment per patient size (includes targeted exams where dose is matched to clinical indication); or iterative reconstruction. Contrast material: OMNIPAQUE 350; Contrast volume: 100 ml; Contrast route: INTRAVENOUS (IV); COMPARISON: CT ABDOMEN PELVIS W 08/04/2018 18:53 FINDINGS: Lungs: Probably chronic rounded atelectasis in the right lung base is similar to prior. Heart: At least moderate cardiomegaly similar to prior partially seen. Liver: A few scattered hepatic probably cysts measuring up to 5 mm similar to prior, no followup necessary. No hepatic masses. Gallbladder and bile ducts: Cholelithiasis. No significant biliary dilation or radiopaque stones in the biliary tree. Pancreas: No ductal dilation. No masses. Spleen: No splenomegaly or focal lesions. Adrenal glands: No mass. Kidneys and ureters: No hydronephrosis. No renal masses. Stomach and bowel: Herniation of the anterior portion of the stomach through a large ventral diastasis pattern similar to prior. Colonic diverticulosis without diverticulitis. Moderate in severity partial small bowel obstruction. Small bowel distended up to 5 cm in diameter. Predominantly proximal/left-sided small bowel. There is a decompression in the right mid abdomen. Pattern similar to prior. Multiple air-fluid levels. No definite wall thickening. Distal small bowel is decompressed. Small bowel is clumped against the ventral abdominal wall which is very similar to prior. Appendix: No evidence of appendicitis. Intraperitoneal space: See Stomach and bowel finding. Vasculature: No abdominal aortic aneurysm. Lymph nodes: No significantly enlarged lymph nodes. Urinary bladder: Herniation of the anterior bladder into a large diastasis of the ventral pelvic wall pattern similar to prior. Chronic appearing moderate bladder wall thickening likely due to chronic outlet obstructive disease, also similar. Reproductive: Unremarkable as visualized. Bones/joints: Large broad abdominal and pelvic diastasis recti without a karyna hernia. Pattern similar to prior. Posterior fixation at L2 through L4 appears intact. L2 through L5 laminectomy. Severe multilevel neural foraminal stenosis. No acute fracture or subluxation. Soft tissues: No suspicious lesions. IMPRESSION: 1. Moderate in severity partial small bowel obstruction. Pattern similar to prior, favor due to adhesions. 2. Additional findings as described. Dictated and Authenticated by: Alaina Love MD. Ordering:RAMOS Burris MD
[2021-11-21 18:59] LABS: Lipase 190 U/L (73-393)
[2021-11-21 19:23] VITALS: BP 127/93; PULSE 107; RESP 18; TEMP 36.7; O2SAT 94
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
[2021-11-21 20:21] LABS: Source Nasal/Nares
[2021-11-21 20:38] VITALS: TEMP 36.8
[2021-11-21] MEDS: ACETAMINOPHEN 1,000 MG/100 ML BTL 400 MG IVPB (20:38)
[2021-11-21] MEDS: Lidocaine 2% Jelly 6 ML SYR (20:50)
[2021-11-21 20:56] LABS: COVID-19 PCR Negative (Negative)
--- NOTE | 2021-11-21 21:00 | TELEP.MEDR_ITS ---
Date of service: 11/21/21 Time of Service: 21:00 Telepharmacy Home Med Rec Allergies Allergies: cephalexin monohydrate [From Keflex] Allergy (Intermediate, Verified 11/13/21 02:29) Skin Rash aspirin [From Percodan] Allergy (Verified 11/13/21 02:29) hydrocodone Adverse Reaction (Severe, Verified 11/13/21 02:29) Psychosis ertapenem [From Invanz] Adverse Reaction (Intermediate, Verified 11/13/21 02:29) severe gi upset oxycodone [Oxycodone] Adverse Reaction (Intermediate, Verified 11/13/21 02:29) Psychosis Interview Person Interviewed: * Judy (daughter) Quality Quality of Interview/Accuracy of Medication List: Excellent Sources Sources used to compile medication list: [employer] Medication List, Patient List and [employer]s Changes made to Home Medication List: ADDITIONS: * pradaxa 150mg Po BID (on hold since 2 weeks ago) DELETIONS: * none CHANGES: * none Additional Notes Additional Notes: * patient last took Levaquin 750mg last night (11/20/21) Recommended Changes Attestation: The home medication list is now updated to the best of my knowledge and is ready to be reconciled by the provider. Please contact the [facility] Medication Reconciliation Pharmacist at for any questions.
--- NOTE | 2021-11-21 21:15 | DI.RAD_ITS ---
Exam(s) XR PORTABLE CHEST AP POST LINE EXAM: XR PORTABLE CHEST AP POST LINE CLINICAL HISTORY: NG tube placement TECHNIQUE: 2D digital imaging was performed. COMPARISON: CR XR PORTABLE CHEST AP POST LINE from 08/04/[address] CHEST PE CTA from 11/06/2021 FINDINGS: Nasogastric tube in stomach. LUNGS: Scarring right lower lobe. No pleural abnormality seen. HEART: Mildly enlarged. AORTA: Normal. BONES: Unremarkable for age. Soft tissues: Unremarkable. IMPRESSION: NGT projects in stomach. DATA REPOSITORY: RADIATION DOSE DELIVERED:
[2021-11-21 21:35] VITALS: BP 130/77; PULSE 103; RESP 20; O2SAT 94
--- NOTE | 2021-11-21 21:35 | NUR.NOTE ---
Nursing Note: Handoff report given to Dora ALMODOVAR, aware pt requesting pain medication, Xray at pt's bedside.
--- NOTE | 2021-11-21 21:47 | DI.VRAD_ITS ---
PROCEDURE INFORMATION: Exam: XR Chest Exam date and time: 11/21/2021 21:18 Age: 71 years old Clinical indication: Other: Ng tube placement TECHNIQUE: Imaging protocol: Radiologic exam of the chest. Views: 1 view. COMPARISON: CT CHEST PE CTA 11/06/2021 15:10 FINDINGS: Tubes, catheters and devices: Nasogastric tube tip in the stomach. Lungs: Linear opacities in the right lung base most likely scarring and or rounded atelectasis as seen on previous CT. Pleural spaces: No pleural effusion. No pneumothorax. Heart/Mediastinum: Cardiomegaly is partially seen. Bones/joints: No acute fracture. IMPRESSION: Nasogastric tube tip in the stomach. Dictated and Authenticated by: Alaina Love MD. Ordering:RAMOS Burris MD
[2021-11-21 21:56] VITALS: BP 109/74; PULSE 99; RESP 18; TEMP 37.5; O2SAT 94
[2021-11-21] MEDS: Pantoprazole 40 MG VIAL IVP (23:03)
[2021-11-21] MEDS: Enoxaparin 40 MG/0.4 ML SYR SC (23:04)
[2021-11-21] MEDS: Lactated Ringers 1,000 ML 50 ML IV (23:04)
[2021-11-21] MEDS: Normal Saline 500 ML 30 ML IV (23:05)
[2021-11-21] MEDS: levoFLOXacin 750 MG/150 ML BAG 100 MG IVPB (23:31)
[2021-11-22] VITALS (13 sets, daily range): BP systolic 98–125; BP diastolic 63–87; PULSE 43–89; RESP 16–18; TEMP 36.3–36.5; O2SAT 91–98
[2021-11-22] MEDS: Metoprolol 5 MG/5 ML VIAL IVP ×2 (06:46→17:58)
[2021-11-22] MEDS: Lidocaine 5% Patch 2 PATCH TP (06:46)
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
[2021-11-22 06:58] LABS: Abs Immature Grans 0.01 10^3/uL (0.0-0.06); Absolute Basophil Count 0.04 10^3/uL (0.0-0.2); Absolute Eosinophil Count 0.25 10^3/uL (0.0-0.7); Absolute Lymphocyte Count 0.92 10^3/uL (1.2-3.4); Absolute Monocyte Count 0.71 10^3/uL (0.1-0.8); Absolute Neutrophil Count 4.63 10^3/uL (1.2-6.7); Basophils % 0.6; Eosinophils % 3.8; HCT 41.2 % (40.0-50.0); HGB 13.2 g/dL (13.5-17.5); Immature Grans % 0.2; MCH 27.8 pg (27.0-33.0); MCV 87 fL (80-95); Monocytes % 10.8; Neutrophils % 70.6; Platelet Count 333 10^3/uL (130-400); RBC 4.74 10^6/uL (4.36-5.78); RDW 18.1 % (11.8-14.1); RDW-SD 57.8 fL; WBC 6.56 10^3/uL (4.4-10.8)
[2021-11-22 07:12] LABS: Anion Gap 7.4 mmol/L (3-11); BUN 33 mg/dL (7-18); CO2 29.6 mmol/L (21.0-32.0); CREATININE 1.1 mg/dL (0.70-1.30); Calcium 9.6 mg/dL (8.5-10.1); Chloride 102 mmol/L (98-107); Estimated GFR 71.32 (mL/min/1.73m2); Glucose 122 mg/dL (74-106); Potassium 4.1 mmol/L (3.5-5.1); Sodium 139 mmol/L (136-145)
[2021-11-22] MEDS: Ondansetron 4 MG/2 ML VIAL IVP (07:17)
[2021-11-22 08:13] LABS: Magnesium 2.4 mg/dL (1.8-2.4)
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
[2021-11-22] MEDS: MORPHine 4 MG/ML SYR 3 MG IVP ×3 (11:11→20:16)
[2021-11-22] MEDS: Normal Saline Flush 10 ML SYR IVP ×2 (11:11→17:58)
[2021-11-22] MEDS: Bisacodyl 10 MG SUPP PR (13:37)
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
[2021-11-22 15:54] LABS: Bilirubin Negative (Negative); Blood Negative (Negative); Clarity Sl Cloudy (Clear); Glucose Negative (Negative); Ketones Negative (Negative); Leukocyte Esterase Negative (Negative); Nitrite Negative (Negative); Specific Gravity >= 1.030 (1.005-1.025); Urobilinogen 0.2 EU/dL (Up TO 0.2); pH 5.5 (5-8)
[2021-11-22] MEDS: Lactated Ringers 1,000 ML 50 ML IV (16:54)
[2021-11-22] MEDS: Pantoprazole 40 MG VIAL IVP (21:53)
[2021-11-22] MEDS: Normal Saline 10 ML VIAL (21:53)
[2021-11-22] MEDS: Enoxaparin 40 MG/0.4 ML SYR SC (21:54)
[2021-11-23] VITALS (16 sets, daily range): BP systolic 104–134; BP diastolic 67–90; PULSE 68–92; RESP 14–19; TEMP 35.8–36.7; O2SAT 92–97
[2021-11-23] MEDS: Normal Saline Flush 10 ML SYR IVP ×4 (00:33→12:04)
[2021-11-23] MEDS: Metoprolol 5 MG/5 ML VIAL IVP ×3 (00:34→12:02)
[2021-11-23] MEDS: Lidocaine 5% Patch 2 PATCH TP (06:41)
[2021-11-23 06:44] LABS: Abs Immature Grans 0.02 10^3/uL (0.0-0.06); Absolute Basophil Count 0.03 10^3/uL (0.0-0.2); Absolute Eosinophil Count 0.39 10^3/uL (0.0-0.7); Absolute Lymphocyte Count 1.33 10^3/uL (1.2-3.4); Absolute Monocyte Count 0.71 10^3/uL (0.1-0.8); Basophils % 0.5; Eosinophils % 5.9; HCT 42.8 % (40.0-50.0); HGB 13.3 g/dL (13.5-17.5); Immature Grans % 0.3; Lymphocytes % 20.2; MCH 27.6 pg (27.0-33.0); MCHC 31.1 % (32.0-36.0); MCV 89 fL (80-95); Monocytes % 10.8; Neutrophils % 62.3; Platelet Count 336 10^3/uL (130-400); RBC 4.82 10^6/uL (4.36-5.78); RDW 18.3 % (11.8-14.1); RDW-SD 59.4 fL; WBC 6.58 10^3/uL (4.4-10.8)
[2021-11-23 06:59] LABS: Anion Gap 7.7 mmol/L (3-11); BUN 38 mg/dL (7-18); CO2 29.3 mmol/L (21.0-32.0); CREATININE 1.1 mg/dL (0.70-1.30); Calcium 9.5 mg/dL (8.5-10.1); Chloride 104 mmol/L (98-107); Estimated GFR 71.32 (mL/min/1.73m2); Glucose 97 mg/dL (74-106); Magnesium 2.5 mg/dL (1.8-2.4); Potassium 4.7 mmol/L (3.5-5.1); Sodium 141 mmol/L (136-145)
[2021-11-23] MEDS: MORPHine 4 MG/ML SYR 3 MG IVP (08:24)
--- NOTE | 2021-11-23 09:39 | PDOC.CMPRO ---
- If Service Date Differs Date of service: 11/23/21 Time of Service: 09:39 Care Management Progress Note S/O:Cosmo was sitting up in a chair when CM met with him. He stated that he still has some discomfort but is having bowel movements and passing flatus. Cosmo remains NPO and still has an NG tube in place. Cosmo was uncharacteristically irritable today. He informed CM that he intends to go home today. When asked why, he stated that he is just sitting here doing nothing and that he has things to do at home. CM explained that he still has an NG tube and that the tube would need to come out and he would need to be able to eat to be safely discharged. A: Cosmo is a 71 year old man admitted with a Small bowel obstruction P:Anticipate Cosmo will return home with no new services. He will follow up with community providers and plan of care. Transport will be determined by the final discharge plan. CM will continue to support Cosmo and assess for ongoing discharge concerns.
[2021-11-23] MEDS: Lactated Ringers 1,000 ML 50 ML IV (12:21)
--- NOTE | 2021-11-23 14:37 | PHA.REVIEW2 ---
Pharmacy Admission Review - Admission Clinical Review (Last Reviewed 11/22/21 @ 06:59 by Barbie Gupta MD) Urinary retention (Acute) Chronic diastolic CHF (congestive heart failure) (Acute) Small bowel obstruction (Acute) Acute UTI (Acute) Diastolic CHF (Acute) cephalexin monohydrate [From Keflex] Allergy (Intermediate, Verified 11/13/21 02:29) Skin Rash aspirin [From Percodan] Allergy (Verified 11/13/21 02:29) hydrocodone Adverse Reaction (Severe, Verified 11/13/21 02:29) Psychosis ertapenem [From Invanz] Adverse Reaction (Intermediate, Verified 11/13/21 02:29) severe gi upset oxycodone [Oxycodone] Adverse Reaction (Intermediate, Verified 11/13/21 02:29) Psychosis Resuscitation Status Full Code Height 5 ft 10 in Weight 127.933 kg - Renal Dosing Renal Dosing: BUN 38 mg/dL (7-18) H 11/23/21 06:30 Creatinine 1.1 mg/dL (0.70-1.30) 11/23/21 06:30 Medications needing adjustments: Reviewed - Anticoagulation Anticoagulation: Hgb 13.3 g/dL (13.5-17.5) L 11/23/21 06:30 Hct 42.8 % (40.0-50.0) 11/23/21 06:30 Plt Count 336 10^3/uL (130-400) 11/23/21 06:30 Creatinine 1.1 mg/dL (0.70-1.30) 11/23/21 06:30 DVT Prophylaxis: Reviewed Medications: Enoxaparin - Opiate Usage Evaluate Pain Scale/Pains Meds: Reviewed (morphine IV 3mg q2h prn) - Relevant Labs Sodium 141 mmol/L (136-145) 11/23/21 06:30 Potassium 4.7 mmol/L (3.5-5.1) 11/23/21 06:30 Chloride 104 mmol/L (98-107) 11/23/21 06:30 Magnesium 2.5 mg/dL (1.8-2.4) H 11/23/21 06:30 Electrolytes, C-Reactive P, ESR: Reviewed - DM Control DM Control: Glucose 97 mg/dL (74-106) 11/23/21 06:30 DM Control: N/A - Cardiac Review Cardiac Review: Troponin I < 50 ng/L (<or=60) 11/21/21 16:42 BP, HR, EF%: N/A - Qtc Review QTc: N/A - IV to PO Switch IV Medications: N/A - Home Meds Home Med List reviewed: Reviewed Relevent Home Meds Not ordered & why?: all PO meds -- currently NPO d/t SBO - Current meds Current Medication Order Review: Reviewed
[2021-11-23] MEDS: Furosemide 40 MG TAB PO (16:04)
--- NOTE | 2021-11-23 16:07 | PGE_ITS ---
Date of Service Date of service: 11/23/21 Time of Service: 16:07 Assessment and Plan Assessment and plan (1) Small bowel obstruction: Status: Acute Assessment and plan: Interval history seems to support some resolution of the partial small bowel obstruction. We talked about the possibility of removing the nasogastric tube, and the likelihood that it may need to be reinserted. He seems to have a good understanding, and he would like a trial of removal for now. I also think it is okay for him to have some gum or lozenges. Otherwise, I do not want to advance his diet just yet. Subjective Subjective Interval history since last seen: He says he feels much better this afternoon. He had a bowel movement and has been passing flatus. He denies any nausea or vomiting. Exam GI Inspection: distended, large pannus and obesity Palpation: soft, no guarding and nontender Percussion: normal to percussion Auscultation: hyperactive bowel sounds Objective Last Vital Signs Temp 97.0 F L 11/23/21 15:22 Pulse 72 11/23/21 15:22 Resp 16 11/23/21 15:22 BP 106/76 11/23/21 15:22 Pulse Ox 95 11/23/21 15:22 Laboratory Results - last 24 hr 11/22/21 11/23/21 11/23/21 15:31 06:30 06:30 WBC 6.58 RBC 4.82 Hgb 13.3 L Hct 42.8 MCV 89 MCH 27.6 MCHC 31.1 L RDW 18.3 H Plt Count 336 MPV 8.0 Immature Gran % 0.3 Neutrophils % 62.3 Lymphocytes % 20.2 Monocytes % 10.8 Eosinophils % 5.9 Basophils % 0.5 Nucleated RBC % 0.0 Absolute Neutrophils 4.10 Absolute Lymphocytes 1.33 Absolute Monocytes 0.71 Absolute Eosinophils 0.39 Absolute Basophils 0.03 Sodium 141 Potassium 4.7 Chloride 104 Carbon Dioxide 29.3 Anion Gap 7.7 BUN 38 H Creatinine 1.1 Est GFR (CKD-EPI 2020) 71.32 Glucose 97 Calcium 9.5 Magnesium 2.5 H Urine Color Yellow Urine Clarity Sl Cloudy Urine pH 5.5 Ur Specific [place] >= 1.030 H Urine Protein Negative Urine Ketones Negative Urine Blood Negative Urine Nitrite Negative Urine Bilirubin Negative Urine Urobilinogen 0.2 Ur Leukocyte Esterase Negative Urine Glucose Negative
--- NOTE | 2021-11-23 16:46 | W.PM.PROGNOT ---
Date of Service Date of service: 11/23/21 Time of Service: 16:47 Assessment and Plan Assessment and plan (1) Small bowel obstruction: Status: Acute Assessment and plan: h/o prior abdominal surgery. Defer to primary team. (2) Chronic atrial fibrillation: Status: Chronic Assessment and plan: Continue IV metoprolol while monitoring on tele. Switch to p.o. metoprolol once she is allowed to have diet. At this point we will sign off his case as the patient is hemodynamically stable. Call us if any further needs arise. Subjective Subjective Interval history since last seen: Jeff states that he has been having flatus and small stool. He denies any abdominal pain or nausea. Dr. Sierra has agreed to pull his NG and it is now out. However, he remains NPO for now. patient denies any chest pain or dyspnea or palpitations. Exam Narrative Exam Narrative: Alert and oriented x3 lungs are clear to auscultation Heart is irregularly irregular at a controlled rate Abdomen is soft obese, mild distention, nontender normal bowel sounds, multiple surgical scars Objective Last Vital Signs Temp 36.1 C L 11/23/21 15:22 Pulse 72 11/23/21 15:22 Resp 16 11/23/21 15:22 BP 106/76 11/23/21 15:22 Pulse Ox 95 11/23/21 15:22 Laboratory Results - last 24 hr 11/23/21 11/23/21 06:30 06:30 WBC 6.58 RBC 4.82 Hgb 13.3 L Hct 42.8 MCV 89 MCH 27.6 MCHC 31.1 L RDW 18.3 H Plt Count 336 MPV 8.0 Immature Gran % 0.3 Neutrophils % 62.3 Lymphocytes % 20.2 Monocytes % 10.8 Eosinophils % 5.9 Basophils % 0.5 Nucleated RBC % 0.0 Absolute Neutrophils 4.10 Absolute Lymphocytes 1.33 Absolute Monocytes 0.71 Absolute Eosinophils 0.39 Absolute Basophils 0.03 Sodium 141 Potassium 4.7 Chloride 104 Carbon Dioxide 29.3 Anion Gap 7.7 BUN 38 H Creatinine 1.1 Est GFR (CKD-EPI 2020) 71.32 Glucose 97 Calcium 9.5 Magnesium 2.5 H
[2021-11-23] MEDS: Patch Removal 1 EACH TP (18:14)
[2021-11-23] MEDS: Pramipexole 0.5 MG TAB 1 MG PO (18:14)
[2021-11-23] MEDS: Gabapentin 300 MG CAP 600 MG PO (20:00)
[2021-11-23] MEDS: Enoxaparin 40 MG/0.4 ML SYR SC (20:00)
[2021-11-24] MEDS: Lactated Ringers 1,000 ML 50 ML IV (06:34)
[2021-11-24 08:12] VITALS: BP 129/77; PULSE 76; RESP 18; TEMP 35.9; O2SAT 93
[2021-11-24] MEDS: Gabapentin 300 MG CAP 600 MG PO ×2 (08:40→20:08)
[2021-11-24] MEDS: Finasteride 5 MG TAB PO (08:40)
[2021-11-24] MEDS: Pantoprazole 40 MG TABCR PO (08:40)
[2021-11-24] MEDS: Lisinopril 5 MG TAB PO (08:41)
[2021-11-24] MEDS: Escitalopram 20 MG TAB PO (08:41)
[2021-11-24] MEDS: Furosemide 40 MG TAB PO ×2 (08:41→16:54)
--- NOTE | 2021-11-24 10:01 | W.PM.PROGNOT ---
Date of Service Date of service: 11/24/21 Time of Service: 10:01 Assessment and Plan Assessment and plan (1) Small bowel obstruction: Status: Acute Assessment and plan: -tolerating clears/advance to fulls. If tolerates can go to surgical soft in am -pt had mult BM today -encourage ambulation and pulm toilet -chronic anemia and on Fe -recent UTI and on lovenox -chronic A. fib and on pradaxa (2) Urinary retention: Status: Acute (3) Chronic diastolic CHF (congestive heart failure): Status: Acute (4) Anemia: Status: Chronic (5) Acute UTI: Status: Acute (6) Obesity, morbid, BMI 40.0-49.9: Status: Acute (7) H/O neck surgery: Status: Acute (8) Chewing tobacco nicotine dependence: Status: Acute (9) BPPV (benign paroxysmal positional vertigo): Status: Resolved (10) TBI (traumatic brain injury): Status: Chronic Qualifiers: Encounter type: sequela Loss of consciousness presence/duration: with LOC of unspecified duration Qualified Code(s): S06.9X9S - Unspecified intracranial injury with loss of consciousness of unspecified duration, sequela (11) 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 no headaches. No CP or SOB. no productive cough. no leg pain or swelling. pt does self- cath. Pt is tolerating cl liquids. He has had mult. BM. He would like more solid foods. His daughter is present on the phone throughout our interview. Exam Narrative Exam Narrative: L: cta b/l abdom: post Sx changes. +BS. + hernias soft and nontender. ext- chronic venous stasis and dermatitis and edema. Objective Last Vital Signs Temp 35.9 C L 11/24/21 08:12 Pulse 76 11/24/21 08:12 Resp 18 11/24/21 08:12 BP 129/77 11/24/21 08:12 Pulse Ox 93 11/24/21 08:12
[2021-11-24 11:37] VITALS: BP 125/85; PULSE 72; RESP 18; TEMP 35.6; O2SAT 96
[2021-11-24 12:10] VITALS: O2SAT 95
[2021-11-24 13:14] VITALS: BP 121/84; PULSE 70; RESP 18; O2SAT 95
[2021-11-24] MEDS: Metoprolol CR 25 MG TABCR PO (13:26)
--- NOTE | 2021-11-24 14:22 | RESPIRATORY ---
Patient has his own AirCurve VAUTO Bipap settings: Max IPAP 25/ Min EPAP 14/ PS 4 with no O2 bled into the device. Uses ResMed Mirage FX nasal mask size Standard. [facility], RT instructed [facility] to [facility] as his filters are in need of being changed.
[2021-11-24 16:07] VITALS: BP 119/81; PULSE 71; RESP 18; TEMP 36.6; O2SAT 97
--- NOTE | 2021-11-24 16:19 | PDOC.CMPRO ---
- If Service Date Differs Date of service: 11/24/21 Time of Service: 16:19 Care Management Progress Note S/O:Naomi was sitting up in a chair when CM met with him. He was in a much better mood today and stated that he is feeling better. His NG tube was removed last night and his diet has been advanced to clear liquids which he is tolerating well. NAOMI shared that his pain is better and that he anticipates being discharged home later today. A: Naomi is a 71 year old man admitted with a Small bowel obstruction P:Anticipate Naomi will return home with no new services. He will follow up with community providers and plan of care. Transport will be determined by the final discharge plan. CM will continue to support Naomi and assess for ongoing discharge concerns.
[2021-11-24] MEDS: Pramipexole 0.5 MG TAB 1 MG PO (18:40)
[2021-11-24] MEDS: Normal Saline Flush 10 ML SYR IVP (20:08)
[2021-11-24] MEDS: Enoxaparin 40 MG/0.4 ML SYR SC (22:13)
[2021-11-24 23:12] VITALS: BP 120/80; PULSE 87; RESP 20; TEMP 36.8; O2SAT 92
[2021-11-25] MEDS: Normal Saline Flush 10 ML SYR IVP ×2 (05:46→19:18)
[2021-11-25] MEDS: Lidocaine 5% Patch 2 PATCH TP (05:46)
[2021-11-25 06:49] LABS: Platelet Count 289 10^3/uL (130-400)
[2021-11-25 07:45] VITALS: BP 124/85; PULSE 67; RESP 18; TEMP 36; O2SAT 95
[2021-11-25 08:09] VITALS: BP 114/84; PULSE 68; RESP 18; TEMP 36; O2SAT 96
[2021-11-25] MEDS: Finasteride 5 MG TAB PO (08:11)
[2021-11-25] MEDS: Furosemide 40 MG TAB PO (08:11)
[2021-11-25] MEDS: Metoprolol CR 25 MG TABCR PO (08:11)
[2021-11-25] MEDS: Pantoprazole 40 MG TABCR PO ×2 (08:11→19:17)
[2021-11-25] MEDS: Gabapentin 300 MG CAP 600 MG PO ×2 (08:11→19:17)
[2021-11-25] MEDS: Escitalopram 20 MG TAB PO (08:11)
[2021-11-25] MEDS: Lisinopril 5 MG TAB PO (08:11)
--- NOTE | 2021-11-25 12:45 | PGE_ITS ---
Date of Service Date of service: 11/25/21 Time of Service: 12:45 Assessment and Plan Assessment and plan (1) Small bowel obstruction: Status: Acute Assessment and plan: We will advance patient to soft low fiber diet. His daughter was given information on low fiber diet. We discussed expectations at home. Discussed warnings sign's for an impending bowel obstruction, and starting a clear liquid diet and using MiraLAX to prevent further bowel obstructions see orders (2) Anemia: Status: Chronic (3) Chronic diastolic CHF (congestive heart failure): Status: Acute (4) Urinary retention: Status: Acute (5) Obesity, morbid, BMI 40.0-49.9: Status: Acute (6) Peripheral neuropathy: Status: Chronic (7) TBI (traumatic brain injury): Status: Chronic Qualifiers: Encounter type: sequela Loss of consciousness presence/duration: with LOC of unspecified duration Qualified Code(s): S06.9X9S - Unspecified intracranial injury with loss of consciousness of unspecified duration, sequela (8) 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 no headaches. No CP or SOB. no productive cough. no dysuria. no leg pain or swelling. Patient self caths and has not been having any problems. He is tolerating a full liquid diet. He is moving his bowels. His daughter is at bedside today. I did discuss with them what all low fiber diet would look like for a week after he comes home and then transitioning slowly transitioning to a high-fiber diet as he begins to feel better. He said he normally does not have problems moving his bowels and they are it very regular. I have a feeling he does not have an entire colon we discussed the concept of scar tissue formation and how this can cause small bowel obstruction. Patient says he has no prodromal symptoms that the bowel obstruction is coming on until he gets really sick. We discussed that if he is getting prodromal symptoms that he can go on a clear liquid diet and take MiraLAX and see if this helps to circumvent a bowel obstruction. But otherwise if he gets the signs and symptoms again he should come into the ER for hydration. Hopefully he will not get another bowel obstruction, but I have a feeling he has extensive scar tissue in his abdomen and this will likely happen again. He is an extremely poor surgical candidate and we would not operate on him at [facility]. Exam Narrative Exam Narrative: Lungs are clear to auscultation bilaterally Abdomen is soft and nontender with good bowel sounds. Patient has been moving his bowels without issue. Objective Last Vital Signs Temp 36 C L 11/25/21 08:09 Pulse 68 11/25/21 08:09 Resp 18 11/25/21 08:09 BP 114/84 11/25/21 08:09 Pulse Ox 96 11/25/21 08:09 Laboratory Results - last 24 hr 11/25/21 06:35 Plt Count 289
[2021-11-25 15:36] VITALS: BP 94/68; PULSE 75; RESP 18; TEMP 36.7; O2SAT 95
[2021-11-25] MEDS: Pramipexole 0.5 MG TAB 2 MG PO (17:37)
[2021-11-25] MEDS: Patch Removal 1 EACH TP (18:10)
[2021-11-25 20:52] VITALS: RESP 16; O2SAT 95
[2021-11-25] MEDS: Enoxaparin 40 MG/0.4 ML SYR SC (21:40)
[2021-11-25 23:56] VITALS: BP 108/74; PULSE 68; RESP 18; TEMP 36.4; O2SAT 94
[2021-11-26] MEDS: Lidocaine 5% Patch 2 PATCH TP (06:02)
[2021-11-26 06:27] VITALS: BP 92/68; PULSE 79; RESP 18; TEMP 36.2; O2SAT 97
[2021-11-26 07:23] VITALS: BP 116/68; PULSE 98; RESP 16; TEMP 36.1; O2SAT 97
[2021-11-26] MEDS: Finasteride 5 MG TAB PO (08:06)
[2021-11-26] MEDS: Furosemide 40 MG TAB PO (08:07)
[2021-11-26] MEDS: Spironolactone 25 MG TAB PO (08:07)
[2021-11-26] MEDS: Lisinopril 5 MG TAB PO (08:07)
[2021-11-26] MEDS: Escitalopram 20 MG TAB PO (08:08)
[2021-11-26] MEDS: Metoprolol CR 25 MG TABCR PO (08:08)
[2021-11-26] MEDS: Gabapentin 300 MG CAP 600 MG PO (08:09)
[2021-11-26] MEDS: Pantoprazole 40 MG TABCR PO (08:09)
[2021-11-26] MEDS: buPROPion-XL 150 MG TABCR PO (08:09)
[2021-11-26] MEDS: Tamsulosin 0.4 MG CAPCR PO (08:09)
--- NOTE | 2021-11-26 11:03 | W.PM.PROGNOT ---
Date of Service Date of service: 11/26/21 Time of Service: 11:03 Assessment and Plan Assessment and plan (1) Urinary retention: Status: Acute Assessment and plan: chronic cath -pt completed 10 days of levaquin therapy and will d/c at discharge (2) Chronic diastolic CHF (congestive heart failure): Status: Acute (3) Diverticula of colon: Status: Acute (4) Cholelithiasis: Status: Acute (5) Hematuria: Status: Acute (6) Anemia: Status: Chronic (7) Small bowel obstruction: Status: Acute Assessment and plan: resolved d/w pt and daughter if s/s of requerence to start cl liquid diet and use miralax go home on low fiber diet for 1 week and than transition to high fiber diet. 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 [place]. Will d/c lisinopril and add metoprolol. Should f/u pcp for BP check Subjective Subjective Interval history since last seen: Pt is doing well. no headaches. No CP or SOB. no productive cough. no dysuria. no leg pain or swelling. pt is doing well. He is up walking. He is tolerating a regular diet. He is moving his bowel. Exam Resp Other: CTA b/l GI Other: soft/non tender +BS Extrem Other: carbonic OA achnges/swelling in knees chronic venous stasis of LE/stasis dermatitsis/lympedema. no pain. non pitting. Objective Last Vital Signs Temp 36.1 C L 11/26/21 07:23 Pulse 98 H 11/26/21 07:23 Resp 16 11/26/21 07:23 BP 116/68 11/26/21 07:23 Pulse Ox 97 11/26/21 07:23
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
--- NOTE | 2021-11-26 11:44 | CMDISCH_ITS ---
- If Service Date Differs Date of service: 11/26/21 Time of Service: 11:44 LACE Index Scoring Tool - Questions: Length of Stay (in days): 4 - 6 Acuity (Admit via E.D.?): Yes Comorbidities: Congestive Heart Failure E.D. Visits: 4 - Answers: Total Score: 13 Risk of Readmission: High Risk Care Management Discharge Reason for Hospitalization: SBO Discharge Plan: Cosmo is discharged home with no services. He will follow up with his PCP, surgeon and discharge plan of care as prescribed. He is driving himself home as his car is in the [facility] parking lot. Patient/Family Education Needs: Review of discharge instructions re medication, diet limitations and follow up plan of care; discuss Ask Me Three and self management.
== END 2021-11-26 13:06 | disposition home or self-care (01) | DRG 389 ==
LOC: ER 19:44 → MS 21:44
PROVIDERS: Family Medicine; Internal Medicine; Admitting Provider Surgery; Emergency Provider Nurse Practitioner Family; PCP Family Medicine; Visit Provider Surgery
DX: K56.600 Partial intestinal obstruction, unspecified as to cause (principal); I48.20 Chronic atrial fibrillation, unspecified; N39.0 Urinary tract infection, site not specified; M47.12 Other spondylosis with myelopathy, cervical region; I50.32 Chronic diastolic (congestive) heart failure; Z79.01 Long term (current) use of anticoagulants; D64.9 Anemia, unspecified; R53.1 Weakness; E66.01 Morbid (severe) obesity due to excess calories; Z68.39 Body mass index [BMI] 39.0-39.9, adult; R31.9 Hematuria, unspecified; G62.9 Polyneuropathy, unspecified; Z98.1 Arthrodesis status; M48.061 Spinal stenosis, lumbar region without neurogenic claudication; R33.9 Retention of urine, unspecified; F12.90 Cannabis use, unspecified, uncomplicated; F41.8 Other specified anxiety disorders; G25.81 Restless legs syndrome; G47.33 Obstructive sleep apnea (adult) (pediatric); N40.1 Benign prostatic hyperplasia with lower urinary tract symptoms; E78.5 Hyperlipidemia, unspecified; I11.0 Hypertensive heart disease with heart failure; M1A.9XX0 Chronic gout, unspecified, without tophus (tophi); F17.290 Nicotine dependence, other tobacco product, uncomplicated; H81.10 Benign paroxysmal vertigo, unspecified ear; S06.9X9S Unspecified intracranial injury with loss of consciousness of unspecified duration, sequela; R41.89 Other symptoms and signs involving cognitive functions and awareness; K57.30 Diverticulosis of large intestine without perforation or abscess without bleeding; I87.2 Venous insufficiency (chronic) (peripheral)
CPT/HCPCS: 36415; 71045; 80048; 80053; 83690; 87077; 87635; 96361; 96365; 96367; 99223; 99231; 99232; 99239; 99285; J1650; 74177; 81003; 83735; 84484; 85025; 85049; 87086; 87186; J0131; J1956; J2270; J2405; J3490

== ENCOUNTER → 2021-12-01 09:09 | Outpatient (BNVA) | payer MEDICARE, MEDICAID, SELFPAY | PROVIDERS: PCP Family Medicine; Referring Provider Family Medicine; Visit Provider Urology | DX: R33.8 Other retention of urine (principal); R31.9 Hematuria, unspecified | CPT/HCPCS: 81003; 99215 ==

== ENCOUNTER 2021-12-01 16:15 | Outpatient (REF) | payer MEDICARE, MEDICAID, SELFPAY | END 2021-12-01 16:16 | disposition home or self-care (01) | LOC: LBN 16:15 | PROVIDERS: PCP Family Medicine; Visit Provider Urology | DX: N39.0 Urinary tract infection, site not specified (principal); R31.9 Hematuria, unspecified; R33.9 Retention of urine, unspecified | CPT/HCPCS: 87077; 87086; 87186 ==

== ENCOUNTER 2021-12-04 12:08 | Outpatient (REF) | payer MEDICARE, MEDICAID, SELFPAY ==
[2021-12-04 15:23] LABS: HGB 12.4 g/dL (13.5-17.5); MCH 27.7 pg (27.0-33.0); MCHC 31.8 % (32.0-36.0); MCV 87 fL (80-95); Platelet Count 370 10^3/uL (130-400); RBC 4.47 10^6/uL (4.36-5.78); RDW 16.8 % (11.8-14.1); RDW-SD 53.6 fL; WBC 6.68 10^3/uL (4.4-10.8)
[2021-12-04 16:12] LABS: Hemoglobin A1C 5.8 % (<5.7)
[2021-12-04 16:15] LABS: Anion Gap 11.1 mmol/L (3-11); BUN 35 mg/dL (7-18); CO2 22.9 mmol/L (21.0-32.0); Calcium 9.2 mg/dL (8.5-10.1); Chloride 105 mmol/L (98-107); Estimated GFR 79.97 (mL/min/1.73m2); Ferritin 92 ng/mL (26-388); Glucose 102 mg/dL (74-106); Potassium 4.3 mmol/L (3.5-5.1); Sodium 139 mmol/L (136-145)
[2021-12-04 16:30] LABS: Iron 31 ug/dL (65-175); Total Iron Binding Capacity 253 ug/dL (250-450); Transferrin Sat 12 % (20-55)
[2021-12-04 17:05] LABS: NT-proBNP 610 pg/mL (<300)
[2021-12-05 10:14] LABS: Hepatitis C Ab w Rflx HCV PCR Negative (Negative)
== END 2021-12-04 12:09 | disposition home or self-care (01) ==
LOC: NCHCN 12:08
PROVIDERS: PCP Family Medicine; Visit Provider Family Medicine
DX: I10 Essential (primary) hypertension (principal); R73.03 Prediabetes; R60.0 Localized edema; R06.02 Shortness of breath; D64.9 Anemia, unspecified; R19.5 Other fecal abnormalities; Z11.59 Encounter for screening for other viral diseases
CPT/HCPCS: 80048; 85027; 86803; 82728; 83036; 83540; 83550; 83880

== ENCOUNTER → 2021-12-11 15:01 | Outpatient (BNVA) | payer MEDICARE, MEDICAID, SELFPAY | PROVIDERS: PCP Family Medicine; Referring Provider Family Medicine; Visit Provider Urology | DX: R31.9 Hematuria, unspecified (principal) | CPT/HCPCS: 52000 ==

== ENCOUNTER → 2022-01-16 12:25 | Outpatient (BNVA) | payer MEDICARE, MEDICAID, SELFPAY | PROVIDERS: PCP Family Medicine; Referring Provider Family Medicine; Visit Provider Urology | DX: Z96.0 Presence of urogenital implants (principal); Z87.440 Personal history of urinary (tract) infections; L72.9 Follicular cyst of the skin and subcutaneous tissue, unspecified; R33.9 Retention of urine, unspecified; R31.9 Hematuria, unspecified | CPT/HCPCS: 81003; 99214 ==

== ENCOUNTER 2022-01-16 13:32 | Outpatient (REF) | payer MEDICARE, MEDICAID, SELFPAY ==
[2022-01-16 15:08] LABS: Abs Immature Grans 0.01 10^3/uL (0.0-0.06); Absolute Basophil Count 0.03 10^3/uL (0.0-0.2); Absolute Eosinophil Count 0.19 10^3/uL (0.0-0.7); Absolute Lymphocyte Count 1.31 10^3/uL (1.2-3.4); Absolute Monocyte Count 0.56 10^3/uL (0.1-0.8); Absolute Neutrophil Count 4.13 10^3/uL (1.2-6.7); Basophils % 0.5; HCT 37.8 % (40.0-50.0); HGB 11.7 g/dL (13.5-17.5); Immature Grans % 0.2; MCH 26.4 pg (27.0-33.0); MCV 85 fL (80-95); MPV 8.8 fL (8.0-11.0); Neutrophils % 66.3; Platelet Count 252 10^3/uL (130-400); RBC 4.43 10^6/uL (4.36-5.78); RDW 15.9 % (11.8-14.1); RDW-SD 50.1 fL; WBC 6.23 10^3/uL (4.4-10.8)
[2022-01-16 15:49] LABS: AST 17 U/L (15-37); Albumin 3.4 g/dL (3.4-5.0); Alkaline Phosphatase 89 U/L (46-116); Anion Gap 7.2 mmol/L (3-11); BUN 28 mg/dL (7-18); Bilirubin, Total 0.4 mg/dL (0.2-1.0); CO2 28.8 mmol/L (21.0-32.0); Calcium 9.1 mg/dL (8.5-10.1); Chloride 102 mmol/L (98-107); Estimated GFR 79.97 (mL/min/1.73m2); Glucose 100 mg/dL (74-106); Sodium 138 mmol/L (136-145); Total Protein 7.7 g/dL (6.4-8.2)
[2022-01-16 15:50] LABS: ALT < 6 U/L (16-63)
== END 2022-01-16 13:33 | disposition home or self-care (01) ==
LOC: LBN 13:32
PROVIDERS: PCP Family Medicine; Visit Provider Urology
DX: L24.A9 Irritant contact dermatitis due friction or contact with other specified body fluids (principal); I48.20 Chronic atrial fibrillation, unspecified; R31.9 Hematuria, unspecified; L72.8 Other follicular cysts of the skin and subcutaneous tissue
CPT/HCPCS: 80053; 87077; 85025; 87070; 87086; 87186; 87205

== ENCOUNTER 2022-05-07 10:02 | Outpatient (REF) | payer MEDICARE, MEDICAID, SELFPAY ==
[2022-05-07 10:55] LABS: Iron 20 ug/dL (65-175); Total Iron Binding Capacity 339 ug/dL (250-450); Transferrin Sat 6 % (20-55)
[2022-05-07 10:57] LABS: Abs Immature Grans 0.02 10^3/uL (0.0-0.06); Absolute Basophil Count 0.03 10^3/uL (0.0-0.2); Absolute Eosinophil Count 0.14 10^3/uL (0.0-0.7); Absolute Lymphocyte Count 1.43 10^3/uL (1.2-3.4); Absolute Monocyte Count 0.53 10^3/uL (0.1-0.8); Absolute Neutrophil Count 3.82 10^3/uL (1.2-6.7); Basophils % 0.5; Eosinophils % 2.3; HCT 36.7 % (40.0-50.0); HGB 11.8 g/dL (13.5-17.5); Immature Grans % 0.3; MCH 26.6 pg (27.0-33.0); MCHC 32.2 % (32.0-36.0); MCV 83 fL (80-95); Monocytes % 8.9; Platelet Count 259 10^3/uL (130-400); RBC 4.43 10^6/uL (4.36-5.78); RDW 17.1 % (11.8-14.1); RDW-SD 51.6 fL; Reticulocyte 1.4 % (0.5-2.4); WBC 5.97 10^3/uL (4.4-10.8)
[2022-05-07 11:24] LABS: Ferritin 18 ng/mL (26-388); Vitamin B12 668 pg/mL (193-986)
[2022-05-07 11:38] LABS: C-Reactive Protein 0.65 mg/dL (0.0-0.3)
== END 2022-05-07 10:03 | disposition home or self-care (01) ==
LOC: LBN 10:02
PROVIDERS: Visit Provider Surgery
DX: D64.9 Anemia, unspecified (principal); R41.3 Other amnesia; E78.5 Hyperlipidemia, unspecified; I10 Essential (primary) hypertension; F41.8 Other specified anxiety disorders; F12.90 Cannabis use, unspecified, uncomplicated; F17.220 Nicotine dependence, chewing tobacco, uncomplicated; G62.9 Polyneuropathy, unspecified
CPT/HCPCS: 82607; 82728; 82746; 83540; 83550; 85025; 85045; 86140

== ENCOUNTER 2022-05-16 01:05 | Outpatient (CLI) | payer OTHER, SELFPAY ==
--- NOTE | 2022-05-16 07:00 | DI.RAD_ITS ---
Exam(s) RF BARIUM ENEMA EXAM: RF BARIUM ENEMA CLINICAL HISTORY: anemia,HEME + STOOL,MRSA,D52.9,D50.0,K57.30 COMPARISON: No exams were available for comparison TECHNIQUE: 2D and realtime digital imaging was performed. CONTRAST MATERIAL: Barium and air contrast was administered. FINDINGS: Examination was limited by patient body habitus. The examination was limited as contrast did not laurel ch the cecum. There was stool seen in the ascending and proximal transverse colon. There are divert icula seen in the descending and sigmoid colon but no findings of acute diverticulitis. No stricture s or intraluminal masses are seen. There is loss of the haustra markings in the distal sigmoid colon . There is no evidence of obstruction. IMPRESSION: 1. Examination limited due to contrast. The contrast did not reach the colon. 2. Colonic diverticulosis without evidence of acute diverticulitis. 3. There is loss of the haustra markings seen in the sigmoid colon which can be seen with inflammator y bowel disease. Please correlate clinically. RADIATION DOSE DELIVERED: celena Newsome=344 mGy
== END 2022-05-16 01:25 ==
LOC: DI 01:06
PROVIDERS: Visit Provider Surgery
DX: D52.9 Folate deficiency anemia, unspecified (principal); D50.0 Iron deficiency anemia secondary to blood loss (chronic); K57.30 Diverticulosis of large intestine without perforation or abscess without bleeding; R19.5 Other fecal abnormalities; K63.89 Other specified diseases of intestine
CPT/HCPCS: 74270

== ENCOUNTER 2022-05-24 15:06 | Outpatient (CLI) | payer OTHER, SELFPAY ==
--- NOTE | 2022-05-24 | DI.MRI_ITS ---
Exam(s) MR UPPER JOINT LT WO EXAM: MR UPPER JOINT LT WO CLINICAL HISTORY: MD AUTH# [id number] PAIN LEFT ARM, S/P CUBITAL TUNNEL AND CARPAL TUNNEL. TECHNIQUE: Multiplanar multisequence MRI was performed. COMPARISON: None. FINDINGS: Less than optimal fat suppression obtained. BONES: There is no fracture, dislocation, nor obvious bone contusions. No significant ulnar variance . No evidence of avascular necrosis. JOINTS: Some degenerative changes noted in the radiocarpal joint. The carpal joints are unremarkable . Scapholunate distance is normal.No evidence of para-articular ganglion. TENDONS: Flexors: Unremarkable. No tears nor tenosynovitis. Extensors: Unremarkable. No tears or tenosynovitis. Carpal tunnel:Unremarkable MUSCLES: Unremarkable. MEDIAN NERVE: Unremarkable on this noncontrast examination. SOFT TISSUES: Unremarkable. LIGAMENTS: Unremarkable. TRIANGULAR FIBROCARTILAGE: Abnormal signal consistent with chronic degenerative changes. OTHER: Mild moderate degenerative changes at the 1st carpometacarpal joint IMPRESSION: No obvious significant acute findings in the wrist. Some degenerative change noted in the radiocarpal and 1st carpometacarpal joints. Degeneration signal evident in the triangular fibrocartilage. DATA REPOSITORY:
--- NOTE | 2022-05-24 | DI.MRI_ITS ---
Exam(s) MR UPPER JOINT LT WO EXAM: MR UPPER JOINT LT WO CLINICAL HISTORY: LT ARM PAIN, [id number] TECHNIQUE: Multiplanar multisequence MRI was performed without intravenous contrast. COMPARISON: No exams were available for comparison FINDINGS: Less than optimal fat suppression obtained. MARROW: There is no evidence of fracture, bone contusion, nor ominous osseous lesions. ELBOW JOINT: There is an elbow joint effusion there is some mild synovial thickening. No obvious loo se intra-articular body..No significant cartilage loss nor osteochondral defect and there is no evide nce of loose intra-articular body. There are no osteophytes. EPICONDYLES: Edema and tearing evident in the common extensor tendon on the lateral aspect of the radha nt. Similar findings are not seen in the common flexor tendon on the medial aspect of the elbow. ULNAR COLLATERAL LIGAMENT: The anterior band which extends from the medial epicondyle to the sublime tubercle of the coronoid process of the ulna is intact. This structure is the strongest ligament in t he elbow and is the main opponent to severe valgus stress. RADIAL COLLATERAL LIGAMENT: Intact TENDONS: The biceps tendon is intact. Brachialis tendon appears unremarkable. The triceps tendon exhibits tendinosis. CUBITAL TUNNEL/ULNAR NERVE: The ulnar nerve appears unremarkable beneath the cubital tunnel retinacul um/ arcuate ligament and posterior to the medial epicondyle. There is no evidence of arthritic spur arising from the epicondyle nor olecranon causing impingement on the ulnar nerve. There is no eviden ce of accessory anconeus muscle causing impingement at this level. There is also no evidence of soft tissue mass nor ganglia on cyst causing impingement at this level. OTHER FINDINGS: IMPRESSION: 1. Probable joint effusion synovitis and some degenerative change. 2. Edema and tearing of the common extensor tendon on the lateral aspect of the elbow. 3. Tendinosis of the triceps tendon. No high-grade tear of this structure DATA REPOSITORY:
--- NOTE | 2022-05-24 17:19 | DI.VRAD_ITS ---
PROCEDURE INFORMATION: Exam: MR Left Upper Extremity Joint Without Contrast; Elbow Exam date and time: 05/24/2022 3:06 PM Age: 71 years old Clinical indication: Pain; Elbow and wrist; Left; Prior surgery; Surgery date: 6+ months; Surgery type: Cubital tunnel and carpal tunnel TECHNIQUE: Imaging protocol: Magnetic resonance imaging of the left upper extremity without contrast. Exam focused on the elbow. COMPARISON: No relevant prior studies available. FINDINGS: Bones/joints: Elbow joint space effusion. The marrow signal of the distal humerus, proximal radius and ulna is normal. Degenerative narrowing of the humeral-elbow joint space. Small periarticular osteophyte formation. Ulnar (medial) collateral ligament: Unremarkable. No tear. Radial collateral ligament of the elbow: Unremarkable. No tear. Annular ligament of the radius: Unremarkable. No tear. Tendon of the biceps brachii: Unremarkable. No tear. Tendon of the brachialis: Unremarkable. No tear. Triceps tendon: Triceps tendinosis. Common flexor tendon: Unremarkable. No tear. Common extensor tendon: Edema present in the common extensor tendon. Tear of the common extensor tendon. Muscles: Unremarkable. Soft tissues: Unremarkable. IMPRESSION: 1. Non-specific elbow joint space effusion consistent with synovitis. 2. Edema and tear of the common extensor tendon. 3. Triceps tendinosis. No tear. Dictated and Authenticated by: Frederick De La Torre MD. Ordering:ALONSO GRAF MD
--- NOTE | 2022-05-24 17:19 | DI.VRAD_ITS ---
PROCEDURE INFORMATION: Exam: MR Left Upper Extremity Joint Without Contrast; Wrist Exam date and time: 05/24/2022 3:51 PM Age: 71 years old Clinical indication: Pain; Elbow and wrist; Left; Prior surgery; Surgery date: 6+ months; Surgery type: Cubital tunnel and carpal tunnel TECHNIQUE: Imaging protocol: Magnetic resonance imaging of the left upper extremity without contrast. Exam focused on the wrist. COMPARISON: MR UPPER JOINT LT WO 05/24/2022 3:06 PM FINDINGS: Limitations: Poor signal on the STIR sequences. Bones/joints: Marrow signal of the distal radius and ulna is normal. Ulna neutral. Degenerative narrowing of the radiocarpal joint. No marrow edema within the carpal bones or proximal metacarpals. Degenerative changes of the trapezium 1st metacarpal articulation. No wrist joint space effusion. Scapholunate ligament: Not well visualized. Lunotriquetral ligament: Not well visualized. Triangular fibrocartilage complex: Degeneration tear of the triangular fibrocartilage. Flexor compartment tendons: Unremarkable. No tear. Extensor compartment tendons: Unremarkable. No tear. Muscles: Unremarkable. No acute abnormality. Soft tissues: Unremarkable. IMPRESSION: 1. No acute findings. 2. Degeneration/tear of the triangular fibrocartilage. 3. Degenerative changes of the radiocarpal joint. 4. Degenerative changes of the trapezium 1st metacarpal articulation. Dictated and Authenticated by: Frederick De La Torre MD. Ordering:ALONSO GRAF MD
== END 2022-05-24 15:26 ==
PROVIDERS: Visit Provider Student in an Organized Health Care Education/Training Program
DX: M79.602 Pain in left arm (principal); M18.12 Unilateral primary osteoarthritis of first carpometacarpal joint, left hand; M25.532 Pain in left wrist; M19.032 Primary osteoarthritis, left wrist; M25.422 Effusion, left elbow; S56.592A Other injury of other extensor muscle, fascia and tendon at forearm level, left arm, initial encounter
CPT/HCPCS: 73221

== ENCOUNTER 2022-06-18 07:36 | Emergency (ER) | payer OTHER, SELFPAY ==
[2022-06-18] VITALS (48 sets, daily range): BP systolic 75–124; BP diastolic 47–86; PULSE 58–119; RESP 12–32; TEMP 36.7; O2SAT 97
--- NOTE | 2022-06-18 07:45 | RT.EKG_ITS ---
APPROVED REPORT Exam: Resting ECG Reason for Exam: anemia Patient Location: E HR:73 bpm ECG Measurements Heart Rate 73 AXIS DC [id number] P [id number] QRSd 171 QRS -45 QT 435 T -25 QTc 481 Conclusion Atrial fibrillation...? atrial activity RBBB and LAFB...QRSd >120mS, axis(-40,240) no change compared to 11/06/2021
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
[2022-06-18 08:30] LABS: Abs Immature Grans 0.04 10^3/uL (0.0-0.06); Absolute Basophil Count 0.05 10^3/uL (0.0-0.2); Absolute Eosinophil Count 0.28 10^3/uL (0.0-0.7); Absolute Lymphocyte Count 1.64 10^3/uL (1.2-3.4); Basophils % 0.8; Eosinophils % 4.2; HCT 28.1 % (40.0-50.0); HGB 8.8 g/dL (13.5-17.5); Immature Grans % 0.6; Lymphocytes % 24.8; MCH 25.7 pg (27.0-33.0); MCHC 31.3 % (32.0-36.0); MCV 82 fL (80-95); MPV 8.5 fL (8.0-11.0); Monocytes % 9.1; Neutrophils % 60.5; Platelet Count 248 10^3/uL (130-400); RBC 3.42 10^6/uL (4.36-5.78); RDW 16.8 % (11.8-14.1); RDW-SD 50.6 fL; WBC 6.61 10^3/uL (4.4-10.8)
[2022-06-18 08:43] LABS: INR 1.1 (0.9-1.1); PTT Activated 33.9 sec (21.5-31.9); Prothrombin Time 11.4 sec (9.3-11.0)
[2022-06-18 08:44] LABS: ALT 13 U/L (16-63); AST 18 U/L (15-37); Albumin 3.2 g/dL (3.4-5.0); Alkaline Phosphatase 71 U/L (46-116); Anion Gap 6.1 mmol/L (3-11); BUN 41 mg/dL (7-18); Bilirubin, Total 0.4 mg/dL (0.2-1.0); CO2 26.9 mmol/L (21.0-32.0); CREATININE 1.1 mg/dL (0.70-1.30); Chloride 107 mmol/L (98-107); Estimated GFR 71.32 (mL/min/1.73m2); Glucose 119 mg/dL (74-106); Potassium 4.8 mmol/L (3.5-5.1); Sodium 140 mmol/L (136-145); Total Protein 6.4 g/dL (6.4-8.2)
--- NOTE | 2022-06-18 09:07 | NUR.NOTE ---
bowel movement on commode. liquid and bright red blood. no solid stool. no dizziness after bowel movement
--- NOTE | 2022-06-18 09:40 | NUR.NOTE ---
Nursing Note: 1037 [facility] they do not have any beds for transfer at this time, transfer ctr.
--- NOTE | 2022-06-18 10:00 | NUR.NOTE ---
Nursing Note: Report received from Tj ALMODOVAR
[2022-06-18 10:18] LABS: Source Nasal/Nares
[2022-06-18 10:59] LABS: COVID-19 PCR Negative (Negative)
[2022-06-18 11:38] LABS: HCT 28.2 % (40.0-50.0); HGB 8.7 g/dL (13.5-17.5); MCH 25.3 pg (27.0-33.0); MCHC 30.9 % (32.0-36.0); MCV 82 fL (80-95); MPV 8.8 fL (8.0-11.0); Platelet Count 259 10^3/uL (130-400); RBC 3.44 10^6/uL (4.36-5.78); RDW 16.7 % (11.8-14.1); RDW-SD 50.1 fL; WBC 8.25 10^3/uL (4.4-10.8)
--- NOTE | 2022-06-18 11:54 | NUR.NOTE ---
pt had 3 large episodes of passing blood from GI tract with a 10 min period on commode. pt began to feel dizzy and became pale. pt was helped back to bed at that time and ABRAHAM Lewis called to bedside. pt became hypotensive. verbal order for 250ml bolus of LR given and administered. Praxbind also being administered at this time. awaiting PRBC.
--- NOTE | 2022-06-18 12:11 | NUR.NOTE ---
Nursing Note: Pt resting in bed. Alert and able to answer questions. Resp even and unlabored. Denies any dizziness at this time. Will cont to monitor. Call light in reach
--- NOTE | 2022-06-18 12:27 | NUR.NOTE ---
Nursing Note: Oral temp prior to blood administration is 97.6 F.
--- NOTE | 2022-06-18 12:44 | NUR.NOTE ---
Nursing Note: @ 1244 pt temp is 97.6 F orally. Pt resting comfortably, resp even and unlabored.
[2022-06-18 12:56] LABS: Troponin I < 50 ng/L (<or=60)
--- NOTE | 2022-06-18 13:02 | NUR.NOTE ---
Nursing Note: Oral temp 97.9 F at this time. Pt denies any need. Call light in reach.
--- NOTE | 2022-06-18 13:30 | NUR.NOTE ---
Nursing Note: Pt oral temp 98.1F. Will cont to monitor.
[2022-06-18] MEDS: ACETAMINOPHEN 1,000 MG/100 ML BTL 400 MG IVPB (14:16)
[2022-06-18] MEDS: LORazepam 2 MG/ML VIAL 0.5 MG IVP (14:17)
--- NOTE | 2022-06-18 16:10 | NUR.NOTE ---
Nursing Note: [facility] air at bedside. Pt leaving ED at this time.
== END 2022-06-18 16:16 ==
PROVIDERS: Emergency Provider Physician Assistant
DX: K92.2 Gastrointestinal hemorrhage, unspecified (principal); K62.5 Hemorrhage of anus and rectum; I95.9 Hypotension, unspecified; Z93.3 Colostomy status; Z20.822 Contact with and (suspected) exposure to COVID-19; Z79.01 Long term (current) use of anticoagulants; I50.30 Unspecified diastolic (congestive) heart failure; D64.9 Anemia, unspecified
CPT/HCPCS: 36415; 80053; 85027; 86850; 86900; 86901; 86920; 87635; 93005; 96365; 96375; 99285; 83735; 84484; 85025; 85610; 85730; 93010; J0131; J2060; P9016

== ENCOUNTER 2022-06-29 17:42 | Outpatient (CLI) | payer MEDICARE, MEDICAID, SELFPAY ==
[2022-06-29 16:14] LABS: Abs Immature Grans 0.02 10^3/uL (0.0-0.06); Absolute Basophil Count 0.04 10^3/uL (0.0-0.2); Absolute Monocyte Count 0.54 10^3/uL (0.1-0.8); Absolute Neutrophil Count 4.67 10^3/uL (1.2-6.7); Basophils % 0.6; Eosinophils % 4.1; HGB 8.2 g/dL (13.5-17.5); Immature Grans % 0.3; Lymphocytes % 23.4; MCH 25.6 pg (27.0-33.0); MCHC 31.5 % (32.0-36.0); MCV 81 fL (80-95); MPV 7.9 fL (8.0-11.0); Monocytes % 7.4; Neutrophils % 64.2; Nucleated RBC 0.8 % (0.0-0.3); Platelet Count 385 10^3/uL (130-400); RDW 16.3 % (11.8-14.1); RDW-SD 48.4 fL; WBC 7.27 10^3/uL (4.4-10.8)
[2022-06-29 17:55] LABS: Ferritin 8 ng/mL (26-388)
== END 2022-06-29 17:43 | disposition home or self-care (01) ==
LOC: LBO 17:43
PROVIDERS: Visit Provider Surgery
DX: D50.8 Other iron deficiency anemias (principal); D52.9 Folate deficiency anemia, unspecified; D64.9 Anemia, unspecified; K57.30 Diverticulosis of large intestine without perforation or abscess without bleeding
CPT/HCPCS: 36415; 82728; 85025

== ENCOUNTER 2022-07-05 17:46 | Outpatient (CLI) | payer MEDICARE, MEDICAID, SELFPAY ==
[2022-07-05 17:09] LABS: HGB 7.9 g/dL (13.5-17.5)
== END 2022-07-05 17:47 | disposition home or self-care (01) ==
LOC: LBO 17:47
PROVIDERS: Visit Provider Urology
DX: K92.2 Gastrointestinal hemorrhage, unspecified (principal)
CPT/HCPCS: 36415; 85014; 85018

== ENCOUNTER 2022-07-18 17:13 | Outpatient (CLI) | payer MEDICARE, MEDICAID, SELFPAY ==
[2022-07-18 16:58] LABS: Abs Immature Grans 0.02 10^3/uL (0.0-0.06); Absolute Basophil Count 0.02 10^3/uL (0.0-0.2); Absolute Eosinophil Count 0.24 10^3/uL (0.0-0.7); Absolute Lymphocyte Count 1.45 10^3/uL (1.2-3.4); Absolute Monocyte Count 0.92 10^3/uL (0.1-0.8); Absolute Neutrophil Count 4.71 10^3/uL (1.2-6.7); Basophils % 0.3; Eosinophils % 3.3; HCT 30.4 % (40.0-50.0); Immature Grans % 0.3; Lymphocytes % 19.7; MCH 24.5 pg (27.0-33.0); MCHC 29.6 % (32.0-36.0); MCV 83 fL (80-95); MPV 7.9 fL (8.0-11.0); Monocytes % 12.5; Neutrophils % 63.9; Platelet Count 272 10^3/uL (130-400); RBC 3.68 10^6/uL (4.36-5.78); RDW 19.3 % (11.8-14.1); RDW-SD 57.6 fL; WBC 7.36 10^3/uL (4.4-10.8)
[2022-07-18 17:46] LABS: Bilirubin Negative (Negative); Blood Trace-intact (Negative); Clarity Clear (Clear); Glucose Negative (Negative); Ketones Negative (Negative); Leukocyte Esterase Large (Negative); Nitrite Negative (Negative); Specific Gravity 1.015 (1.005-1.025); Urobilinogen 0.2 mg/dL (Up to 0.2)
[2022-07-18 18:09] LABS: Epithelial Cells Rare HPF (Negative); RBC 0-2 HPF (0-2); WBC >50 HPF (0-5)
[2022-07-18 18:10] LABS: Bacteria Many HPF (Negative); C & S Indicated? C&S Done As Ordered; Casts Negative LPF (Negative); Crystals Negative HPF (Negative); Mucus Negative (Negative)
[2022-07-18 18:28] LABS: Ferritin 33 ng/mL (26-388)
== END 2022-07-18 17:14 | disposition home or self-care (01) ==
LOC: LBO 17:14
PROVIDERS: Surgery; Visit Provider Urology
DX: D64.9 Anemia, unspecified (principal); N39.0 Urinary tract infection, site not specified; R31.9 Hematuria, unspecified; D50.8 Other iron deficiency anemias; I50.32 Chronic diastolic (congestive) heart failure; I95.9 Hypotension, unspecified; K62.5 Hemorrhage of anus and rectum; Z79.01 Long term (current) use of anticoagulants
CPT/HCPCS: 36415; 86850; 86900; 86901; 87077; 81003; 81015; 82728; 85014; 85018; 85025; 87086; 87186

== ENCOUNTER 2022-07-27 15:24 | Outpatient (REF) | payer MEDICARE, MEDICAID, SELFPAY ==
[2022-07-27 13:24] LABS: Bilirubin Negative (Negative); Blood Trace-intact (Negative); Clarity Sl Cloudy (Clear); Glucose Negative (Negative); Ketones Negative (Negative); Leukocyte Esterase Moderate (Negative); Nitrite Negative (Negative); Specific Gravity 1.015 (1.005-1.025); Urobilinogen 0.2 mg/dL (Up to 0.2); pH 5.5 (5-8)
[2022-07-27 13:31] LABS: Bacteria Many HPF (Negative); Crystals Negative HPF (Negative); Epithelial Cells Few HPF (Negative); Other Cells Negative (Negative); WBC >50 HPF (0-5)
[2022-07-27 13:32] LABS: C & S Indicated? Yes; Casts Negative LPF (Negative); Mucus Moderate (Negative)
== END 2022-07-27 15:25 | disposition home or self-care (01) ==
LOC: LBN 15:24
PROVIDERS: Visit Provider Urology
DX: N39.0 Urinary tract infection, site not specified (principal)
CPT/HCPCS: 81003; 81015; 87086

== ENCOUNTER → 2022-08-10 12:05 | Outpatient (BNVA) | payer MEDICARE, MEDICAID, SELFPAY | PROVIDERS: Visit Provider Urology | DX: R53.1 Weakness (principal); R33.9 Retention of urine, unspecified | CPT/HCPCS: 99214 ==

== ENCOUNTER 2022-08-10 13:09 | Outpatient (REF) | payer MEDICARE, MEDICAID, SELFPAY ==
[2022-08-10 13:34] LABS: HCT 40.3 % (40.0-50.0); HGB 12.1 g/dL (13.5-17.5)
[2022-08-10 14:07] LABS: Iron 301 ug/dL (65-175); Total Iron Binding Capacity 363 ug/dL (250-450); Transferrin Sat 83 % (20-55)
[2022-08-10 14:20] LABS: ALT 13 U/L (16-63); AST 21 U/L (15-37); Albumin 3.9 g/dL (3.4-5.0); Alkaline Phosphatase 85 U/L (46-116); Anion Gap 10.1 mmol/L (3-11); BUN 32 mg/dL (7-18); Bilirubin, Total 0.5 mg/dL (0.2-1.0); CO2 28.9 mmol/L (21.0-32.0); CREATININE 0.9 mg/dL (0.70-1.30); Calcium 9.3 mg/dL (8.5-10.1); Chloride 102 mmol/L (98-107); Estimated GFR 90.18 (mL/min/1.73m2); Glucose 104 mg/dL (74-106); Potassium 3.4 mmol/L (3.5-5.1); Sodium 141 mmol/L (136-145); Total Protein 8.1 g/dL (6.4-8.2); Vitamin B12 1403 pg/mL (193-986)
[2022-08-14 16:45] LABS: Testosterone, Total 351 ng/dL (240-950)
== END 2022-08-10 13:10 | disposition home or self-care (01) ==
LOC: LBN 13:09
PROVIDERS: Visit Provider Urology
DX: D50.8 Other iron deficiency anemias (principal); D52.9 Folate deficiency anemia, unspecified; R53.1 Weakness; R31.9 Hematuria, unspecified; D64.9 Anemia, unspecified; R33.9 Retention of urine, unspecified; E29.1 Testicular hypofunction
CPT/HCPCS: 80053; 84403; 82607; 83540; 83550; 85014; 85018

== ENCOUNTER → 2022-08-17 13:10 | Outpatient (BNVA) | payer MEDICARE, MEDICAID, SELFPAY | PROVIDERS: Visit Provider Urology | DX: E29.1 Testicular hypofunction (principal) | CPT/HCPCS: 99443 ==

== ENCOUNTER 2022-08-19 08:15 | Inpatient (IN) | payer OTHER, MEDICAID, SELFPAY ==
[2022-08-19 08:15] VITALS: BP 130/81; PULSE 90; RESP 18; TEMP 36.8; O2SAT 97
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
--- NOTE | 2022-08-19 08:30 | DI.RAD_ITS ---
Exam(s) XR HIP RT COMPLETE AP PELVIS EXAM: XR HIP RT COMPLETE AP PELVIS CLINICAL HISTORY: fall yesterday. TECHNIQUE: 2D digital imaging was performed of the right hip. Three images were obtained. AP pelvis and lateral right hip views were obtained. COMPARISON: CT CT PELVIC WO from 08/19/2022 FINDINGS: Findings are suboptimal due to patient body habitus. BONES: No acute fracture is present. No bony destructive lesion is seen. JOINTS: No dislocation present. SOFT TISSUE: Normal. IMPRESSION: 1. Exam limited by patient body habitus. 2. No definite fracture or dislocation is seen. DATA REPOSITORY: RADIATION DOSE DELIVERED:
--- NOTE | 2022-08-19 08:42 | DI.RAD_ITS ---
Exam(s) XR CHEST 1V IN DI DEPT EXAM: XR CHEST 1V IN DI DEPT CLINICAL HISTORY: fall yesterday TECHNIQUE: 2D digital imaging was performed of the chest. Two images were obtained. AP views were obtained. COMPARISON: CR,XR XR PORTABLE CHEST AP POST LINE from 11/21/2021 FINDINGS: MEDIASTINUM: Normal. HEART: Cardiomegaly. PULMONARY VASCULATURE: Normal. LUNGS: Clear. PLEURAL SPACE: No pleural effusion or pneumothorax. There is blunting noted in the right costophrenic angle which may represent a small effusion or scarring. BONE:Within normal limits for the patient's age. OTHER FINDINGS:Normal. IMPRESSION: Blunting of the right costophrenic angle which may represent scarring or small effusion. DATA REPOSITORY: RADIATION DOSE DELIVERED:
--- NOTE | 2022-08-19 09:00 | DI.CT_ITS ---
Exam(s) CT LUMBAR SPINE WO EXAM: CT LUMBAR SPINE WO CLINICAL HISTORY: S/p fall. TECHNIQUE: Imaging Protocol: Axial computed tomography images with coronal and sagittal reformatted images were created and reviewed. COMPARISON: CT CHEST FOR PULMONARY EMBOLUS from 01/24/2015 MR MR LUMBAR SPINE WO from 10/21/[address] ABDOMEN PELVIS W from 11/21/2021 FINDINGS: Bones: No fractures or dislocations are seen. There are degenerative changes present throughout the l umbar spine characterized by joint space narrowing, endplate osteophytes and facet arthropathy. Post surgical changes are seen from L2 through L4. Soft tissues: Cardiomegaly. Cholelithiasis. Atherosclerosis. Right pleural thickening or pleural e ffusion. There is a peripheral opacity in the right lung base. This is stable compared to the CT sc an of the abdomen and pelvis from 11/21/2021. No large disk herniations are identified. Stable fluid a ttenuation well-circumscribed subcutaneous nodule in the right back. IMPRESSION: 1. No acute fracture or subluxation in the lumbar spine. 2. Postsurgical changes from L2 through L4. 3. Findings in the lungs and abdomen as described above. RADIATION DOSE DELIVERED: 3018.83 mGy.cm Total DLP 3018.83 mGy.cm Total DLP DATA REPOSITORY: All CT scans at this facility are submitted to the National Radiology Data Registry (NRDR) Dose Index Registry (DIR) with the [employer] (A[employer]). RADIATION OPTIMIZATION: All CT scans at this facility use at least one of these dose optimization te chniques: automated exposure control; mA and/or kV adjustment per patient size (includes targeted exa ms where dose is matched to clinical indication); or iterative reconstruction.
--- NOTE | 2022-08-19 09:15 | DI.CT_ITS ---
Exam(s) CT PELVIC WO EXAM: CT PELVIC WO CLINICAL HISTORY: s/p fall lower back pain and B hip pain. TECHNIQUE: Imaging Protocol: Axial computed tomography images with coronal and sagittal reformatted images were created and reviewed. COMPARISON: CR,XR XR HIP RT COMPLETE AP PELVIS from 08/19/2022 FINDINGS: Bones: The osseous structures and articular surfaces are intact. Bony alignment is satisfactory. N o cellulitic or osteomyelitic changes are identified. Degenerative changes are seen in the hips in t he lower visualized lumbar spine. Postsurgical changes are seen in the lower lumbar spine. Please r efer to the CT scan of the lumbar spine for complete details. No lytic or sclerotic lesions are iden tified. Soft Tissues: There is infiltration of the soft tissues of the right thigh without karyna fluid collec tion to suggest hematoma. IMPRESSION: 1. No acute fracture or dislocation. 2. Infiltrative changes seen in the right medial thigh which may represent contusion without karyna he matoma. Please correlate clinically. Infection/inflammation cannot be excluded. RADIATION DOSE DELIVERED: Total DLP Total DLP DATA REPOSITORY: All CT scans at this facility are submitted to the National Radiology Data Registry (NRDR) Dose Index Registry (DIR) with the [employer] (ACR). RADIATION OPTIMIZATION: All CT scans at this facility use at least one of these dose optimization te chniques: automated exposure control; mA and/or kV adjustment per patient size (includes targeted exa ms where dose is matched to clinical indication); or iterative reconstruction.
--- NOTE | 2022-08-19 09:30 | DI.CT_ITS ---
Exam(s) CT HEAD WO EXAM: CT HEAD WO CLINICAL HISTORY: fall on anticoagulation. TECHNIQUE: Imaging Protocol: Axial computed tomography images with coronal and sagittal reformatted images were created and reviewed COMPARISON: CT CT HEAD WO from 06/30/2021 FINDINGS: Ventricles and Extra axial spaces: Normal in size and morphology for the patient's age. Hemorrhage: None. Cerebral parenchyma: There is an old lacunar infarct in the left cerebellum. There is an old left ba clare gangliar lacunar infarct. There are areas of decreased attenuation in the white matter consisten t with small vessel ischemic disease. No evidence of an acute territorial infarct. There is an area of encephalomalacia in the right frontal lobe. Midline shift: None. Brainstem/Cerebellum: Normal. Calvarium: Normal. Visualized Paranasal sinuses/Mastoids: Clear. Soft Tissues: Unremarkable. IMPRESSION: No acute intracranial process. RADIATION DOSE DELIVERED: 1,129.55mGy.cm Total DLP DATA REPOSITORY: All CT scans at this facility are submitted to the National Radiology Data Registry (NRDR) Dose Index Registry (DIR) with the [employer] (ACR). RADIATION OPTIMIZATION: All CT scans at this facility use at least one of these dose optimization te chniques: automated exposure control; mA and/or kV adjustment per patient size (includes targeted exa ms where dose is matched to clinical indication); or iterative reconstruction.
--- NOTE | 2022-08-19 09:39 | DI.VRAD_ITS ---
PROCEDURE INFORMATION: Exam: XR Right Hip Exam date and time: 08/19/2022 9:07 AM Age: 72 years old Clinical indication: Other: Fall yesterday TECHNIQUE: Imaging protocol: Radiologic exam of the right hip. Views: 2 or 3 views hip with pelvis when performed. COMPARISON: CT ABDOMEN PELVIS W 11/21/2021 5:53 PM FINDINGS: Bones/joints: Degenerative changes in both hips. Internal fixation device in the lumbar spine. There is no evidence of acute fracture.There is no evidence of malalignment or dislocation. Soft tissues: Unremarkable. IMPRESSION: There is no evidence of acute fracture.There is no evidence of malalignment or dislocation. Dictated and Authenticated by: Tamie Garcia MD. Ordering:JULIAN Gee MD
--- NOTE | 2022-08-19 09:40 | DI.VRAD_ITS ---
PROCEDURE INFORMATION: Exam: XR Chest Exam date and time: 08/19/2022 9:10 AM Age: 72 years old Clinical indication: Other: Fall yesterday TECHNIQUE: Imaging protocol: Radiologic exam of the chest. Views: 1 view. COMPARISON: CR XR PORTABLE CHEST AP POST LINE 11/21/2021 9:18 PM FINDINGS: Lungs: Unremarkable. No consolidation. Pleural spaces: Blunting in the right costophrenic angle may represent small right pleural effusion. Heart/Mediastinum: Cardiomegaly Bones/joints: Unremarkable. IMPRESSION: Blunting in the right costophrenic angle may represent small right pleural effusion. Dictated and Authenticated by: Tamie Garcia MD. Ordering:JULIAN Gee MD
--- NOTE | 2022-08-19 10:07 | DI.VRAD_ITS ---
PROCEDURE INFORMATION: Exam: CT Lumbar Spine Without Contrast Exam date and time: 08/19/2022 9:31 AM Age: 72 years old Clinical indication: Other: S/P fall yeserday; Prior surgery; Surgery date: 6+ months; Surgery type: Lumbar fusion TECHNIQUE: Imaging protocol: Computed tomography of the lumbar spine without contrast. Radiation optimization: All CT scans at this facility use at least one of these dose optimization techniques: automated exposure control; mA and/or kV adjustment per patient size (includes targeted exams where dose is matched to clinical indication); or iterative reconstruction. COMPARISON: MR LUMBAR SPINE WO 10/21/2020 1:32 PM FINDINGS: Bones/joints: There is no evidence of acute fracture.There is no evidence of malalignment or dislocation. Pedicular screws and parallel spinous rods at L2, L3, L4. Significant artifact in the spinal canal. Laminectomy L2 through L5. Lungs: Atelectasis in the right lower lobe Pleural spaces: Small right pleural effusion Heart: Cardiomegaly Liver: Subcentimeter low attenuation area in the liver is too small for characterization. Gallbladder and bile ducts: Gallstones in the gallbladder Soft tissues: 26 x 16. Mm Nodule in the posterior subcutaneous fat. Series 6, image 9 IMPRESSION: 1. There is no evidence of acute fracture.There is no evidence of malalignment or dislocation. 2. Pedicular screws and parallel spinous rods at L2, L3, L4. 3. Significant artifact in the spinal canal. 4. Laminectomy L2 through L5. Dictated and Authenticated by: Tamie Garcia MD. Ordering:JULIAN Gee MD
--- NOTE | 2022-08-19 10:09 | DI.VRAD_ITS ---
PROCEDURE INFORMATION: Exam: CT Pelvis Without Contrast; Skeletal Exam date and time: 08/19/2022 9:31 AM Age: 72 years old Clinical indication: Other: Fall yesterday, right hip pain TECHNIQUE: Imaging protocol: Computed tomography of the pelvis without contrast. Exam focused on the skeleton. Radiation optimization: All CT scans at this facility use at least one of these dose optimization techniques: automated exposure control; mA and/or kV adjustment per patient size (includes targeted exams where dose is matched to clinical indication); or iterative reconstruction. COMPARISON: CT ABDOMEN PELVIS W 11/21/2021 5:53 PM FINDINGS: Bones/joints: Pedicular screws and parallel spinous rods in the lumbar spine. There is no evidence of acute fracture.There is no evidence of malalignment or dislocation. Soft tissues: Inflammatory changes in the medial right thigh. There may be hemorrhage in this region with contusion. No karyna hematoma is identified. IMPRESSION: 1. There is no evidence of acute fracture.There is no evidence of malalignment or dislocation. 2. Inflammatory changes in the medial right thigh. There may be hemorrhage in this region with contusion. No karyna hematoma is identified. Dictated and Authenticated by: Tamie Garcia MD. Ordering:JULIAN Gee MD
[2022-08-19 10:11] LABS: Abs Immature Grans 0.04 10^3/uL (0.0-0.06); Absolute Basophil Count 0.03 10^3/uL (0.0-0.2); Absolute Eosinophil Count 0.09 10^3/uL (0.0-0.7); Absolute Lymphocyte Count 0.78 10^3/uL (1.2-3.4); Absolute Monocyte Count 0.97 10^3/uL (0.1-0.8); Absolute Neutrophil Count 7.98 10^3/uL (1.2-6.7); Basophils % 0.3; Eosinophils % 0.9; HCT 38.6 % (40.0-50.0); HGB 12.1 g/dL (13.5-17.5); Immature Grans % 0.4; Lymphocytes % 7.9; MCH 25.5 pg (27.0-33.0); MCHC 31.3 % (32.0-36.0); MCV 81 fL (80-95); MPV 8.2 fL (8.0-11.0); Monocytes % 9.8; Neutrophils % 80.7; Platelet Count 245 10^3/uL (130-400); RBC 4.75 10^6/uL (4.36-5.78); RDW 20.1 % (11.8-14.1); RDW-SD 60.2 fL; WBC 9.89 10^3/uL (4.4-10.8)
--- NOTE | 2022-08-19 10:13 | DI.VRAD_ITS ---
PROCEDURE INFORMATION: Exam: CT Head Without Contrast Exam date and time: 08/19/2022 9:48 AM Age: 72 years old Clinical indication: Other: Fall, anicoagulation TECHNIQUE: Imaging protocol: Computed tomography of the head without contrast. Radiation optimization: All CT scans at this facility use at least one of these dose optimization techniques: automated exposure control; mA and/or kV adjustment per patient size (includes targeted exams where dose is matched to clinical indication); or iterative reconstruction. COMPARISON: CT HEAD WO 06/30/2021 9:08 AM FINDINGS: Brain: No intracranial hemorrhage appreciated. No significant focal mass effect or significant midline shift. Generalized parenchymal volume loss. Chronic ischemic changes are noted. Right frontal encephalomalacia. Chronic left basal ganglia lacunar infarct. Cerebral ventricles: No disproportionate ventriculomegaly. Paranasal sinuses: No air-fluid levels seen. Mastoid air cells: No mastoid effusion. Bones/joints: No acute cranial vault fracture seen. Soft tissues: No acute findings. IMPRESSION: 1. No intracranial sequelae of trauma appreciated. 2. Nonacute findings as outlined above. Dictated and Authenticated by: Daphne Simental MD. Ordering:JULIAN Gee MD
[2022-08-19 10:29] LABS: ALT 51 U/L (16-63); AST 144 U/L (15-37); Albumin 3.1 g/dL (3.4-5.0); Alkaline Phosphatase 82 U/L (46-116); Anion Gap 11.6 mmol/L (3-11); BUN 27 mg/dL (7-18); Bilirubin, Total 0.8 mg/dL (0.2-1.0); CO2 28.4 mmol/L (21.0-32.0); CREATININE 1.1 mg/dL (0.70-1.30); Calcium 9.2 mg/dL (8.5-10.1); Chloride 102 mmol/L (98-107); Estimated GFR 70.88 (mL/min/1.73m2); Glucose 108 mg/dL (74-106); Potassium 3.4 mmol/L (3.5-5.1); Sodium 142 mmol/L (136-145); Total Protein 7.6 g/dL (6.4-8.2)
[2022-08-19 10:32] LABS: Anisocytosis 2+; Diff Comment Diff Reviewed
[2022-08-19 10:42] LABS: Bilirubin Negative (Negative); Blood Small (Negative); Clarity Sl Cloudy (Clear); Glucose Negative (Negative); Ketones Negative (Negative); Leukocyte Esterase Small (Negative); Nitrite Negative (Negative); Specific Gravity 1.015 (1.005-1.025); Urobilinogen 0.2 mg/dL (Up to 0.2)
[2022-08-19] MEDS: MORPHine 10 MG/ML VIAL 6 MG IVP (11:08)
[2022-08-19 11:22] LABS: Bacteria Many HPF (Negative); C & S Indicated? Yes; Casts Negative LPF (Negative); Crystals Negative HPF (Negative); Epithelial Cells Few HPF (Negative); Mucus Negative (Negative)
--- NOTE | 2022-08-19 14:00 | DI.RAD_ITS ---
Exam(s) XR KNEE RT 2V AP,LAT EXAM: XR KNEE RT 2V AP,LAT CLINICAL HISTORY: patella repair rupture. TECHNIQUE: 2D digital imaging was performed of the right knee. Two views obtained. AP and lateral views were obtained. COMPARISON: CR XR KNEE RT 4V AP,LAT,NATALIYA,PAT from 11/13/2021 FINDINGS: BONES: No acute fracture is present. No bony destructive lesion is seen. JOINTS: The knee is normally aligned. The patient has an intact right total knee replacement. SOFT TISSUE: There is marked soft tissue swelling seen in the distal thigh right above the patella. IMPRESSION: Stable total knee replacement. No evidence of a fracture. If there is concern for internal derangem ent, MRI may be obtained for further evaluation. DATA REPOSITORY: RADIATION DOSE DELIVERED:
[2022-08-19] MEDS: MORPHine 4 MG/ML SYR IVP ×2 (14:20→21:40)
--- NOTE | 2022-08-19 15:14 | DI.VRAD_ITS ---
PROCEDURE INFORMATION: Exam: XR Right Knee Exam date and time: 08/19/2022 3:04 PM Age: 72 years old Clinical indication: Pain; Knee; Right; Patient HX: Patella repair rupture TECHNIQUE: Imaging protocol: Radiologic exam of the right knee. Views: 3 views. COMPARISON: CR XR KNEE RT 4V AP,LAT,NATALIYA,PAT 11/13/2021 1:03 PM FINDINGS: Bones/joints: Total knee replacement without evidence of complication. There is no evidence of acute fracture.There is no evidence of malalignment or dislocation. Stable appearance of the patella Soft tissues: Soft tissue swelling of the distal thigh IMPRESSION: 1. Total knee replacement without evidence of complication. 2. There is no evidence of acute fracture.There is no evidence of malalignment or dislocation. A Dictated and Authenticated by: Tamie Garcia MD. Ordering:JULIAN Gee MD
[2022-08-19 16:58] LABS: ESR 43 mm/hr (0-20)
[2022-08-19 17:20] LABS: C-Reactive Protein > 25.00 mg/dL (0.0-0.3)
[2022-08-19 17:50] VITALS: BP 143/57; PULSE 108; RESP 18; TEMP 38.4; O2SAT 92
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
[2022-08-19 20:05] LABS: Procalcitonin 0.3 ng/mL
[2022-08-19 20:43] VITALS: BP 133/86; PULSE 102; RESP 20; TEMP 38.5; O2SAT 94
[2022-08-19] MEDS: Pramipexole 0.5 MG TAB 2 MG PO (21:45)
[2022-08-19] MEDS: Normal Saline Flush 10 ML SYR IVP (21:48)
[2022-08-19] MEDS: Doxycycline Hyclate 100 MG CAP PO (21:48)
[2022-08-19] MEDS: Gabapentin 300 MG CAP 900 MG PO (21:49)
[2022-08-19 21:50] VITALS: TEMP 38.5
[2022-08-19] MEDS: Lactobacillus Acidophilus CAP 1 CAP PO (21:50)
[2022-08-19] MEDS: Acetaminophen 500 MG TAB 1000 MG PO (21:50)
[2022-08-19] MEDS: buPROPion-XL 150 MG TABCR PO (21:50)
[2022-08-19] MEDS: Escitalopram 20 MG TAB PO (21:51)
[2022-08-19] MEDS: Pantoprazole 40 MG TABCR PO (21:52)
[2022-08-19] MEDS: Lidocaine 5% Patch 3 PATCH TP (21:53)
[2022-08-19] MEDS: Psyllium PKT 1 EACH PO (21:55)
[2022-08-19] MEDS: Carbidopa 25/Levodopa 100 TAB PO (22:04)
[2022-08-19] MEDS: cefTRIAXone 2 GM/50 ML BAG IVPB (22:45)
[2022-08-19 22:50] VITALS: TEMP 36.6
--- NOTE | 2022-08-20 | DI.RAD_ITS ---
Exam(s) XR PORTABLE CHEST AP EXAM: XR PORTABLE CHEST AP CLINICAL HISTORY: new productive cough TECHNIQUE: 2D digital imaging was performed. COMPARISON: CR XR PORTABLE CHEST AP POST LINE from 08/04/2018 CR,XR XR PORTABLE CHEST AP POST LINE from 11/21/2021 CR,XR XR CHEST 1V IN DI DEPT from 08/19/2022 FINDINGS: LUNGS: Lung bases are suboptimally penetrated. No focal consolidation seen. No effusion seen. HEART: Moderately enlarged. Mild vascular prominence. AORTA: Normal diameter. BONES: Unremarkable for age. Soft tissues: Unremarkable. IMPRESSION: Cardiomegaly. Mild pulmonary edema not excluded. DATA REPOSITORY: RADIATION DOSE DELIVERED:
--- NOTE | 2022-08-20 | DI.RAD_ITS ---
Exam(s) XR KNEE LT 4V AP,LAT,NATALIYA,PAT EXAM: XR KNEE LT 4V AP,LAT,NATALIYA,PAT CLINICAL HISTORY: L knee trauma. TECHNIQUE: 2D digital imaging was performed. Three views. COMPARISON: CR XR KNEE LT 3V AP,LAT,NATALIYA from 10/26/2020 FINDINGS: BONES: No acute fracture is present. No bony destructive lesion is seen. JOINTS: There is severe narrowing of the medial femoral tibial joint space, with a [id number] appea wendi. This causes varus angulation. There is some flattening of the medial femoral condyle. There is prominent spurring and periarticular sclerosis. There is also severe narrowing of the lateral pat ellofemoral joint and lateral patellar subluxation. There is a chronic appearing bony fragment adjace nt to the lateral border of the patella. A large joint effusion is seen. SOFT TISSUE: Vascular calcifications. IMPRESSION: Severe degenerative changes of the medial femoral tibial joint and patellofemoral joint. Joint effusi on. DATA REPOSITORY: RADIATION DOSE DELIVERED:
[2022-08-20] MEDS: VANCOMYCIN 2,500 MG in Normal Saline 500 ML 250 MG IVPB (00:43)
[2022-08-20 04:36] VITALS: BP 118/82; PULSE 105; RESP 20; TEMP 37.3; O2SAT 97
[2022-08-20 05:10] LABS: Vancomycin, Random 22.7 ug/mL
[2022-08-20 05:49] LABS: Anion Gap 10.8 mmol/L (3-11); BUN 25 mg/dL (7-18); CO2 27.2 mmol/L (21.0-32.0); Chloride 100 mmol/L (98-107); Estimated GFR 79.47 (mL/min/1.73m2); Glucose 154 mg/dL (74-106); Magnesium 2.1 mg/dL (1.8-2.4); Potassium 3.5 mmol/L (3.5-5.1); Sodium 138 mmol/L (136-145); TSH (W/Ref FT4) 0.97 uIU/mL (0.36-3.74)
[2022-08-20] MEDS: Furosemide 40 MG TAB 80 MG PO ×2 (06:49→11:49)
[2022-08-20] MEDS: Carbidopa 25/Levodopa 100 TAB PO ×3 (06:51→18:56)
[2022-08-20 06:57] VITALS: BP 140/108; PULSE 86; TEMP 36.8; O2SAT 96
[2022-08-20] MEDS: Psyllium PKT 1 EACH PO ×2 (08:14→20:30)
[2022-08-20] MEDS: Docusate Sodium 100 MG CAP PO ×3 (08:14→20:27)
[2022-08-20] MEDS: Tamsulosin 0.4 MG CAPCR PO (08:14)
[2022-08-20] MEDS: Finasteride 5 MG TAB PO (08:14)
[2022-08-20] MEDS: Methocarbamol 750 MG TAB PO ×3 (08:15→17:02)
[2022-08-20] MEDS: Spironolactone 25 MG TAB PO (08:15)
[2022-08-20] MEDS: Escitalopram 20 MG TAB PO (08:15)
[2022-08-20] MEDS: Cholecalciferol (Vitamin D3) 1,000 UNIT TAB 2000 UNITS PO (08:15)
[2022-08-20] MEDS: buPROPion-XL 150 MG TABCR PO (08:15)
[2022-08-20] MEDS: Gabapentin 300 MG CAP 900 MG PO ×2 (08:15→20:27)
[2022-08-20] MEDS: Acetaminophen 500 MG TAB 1000 MG PO ×2 (08:15→20:29)
[2022-08-20] MEDS: Doxycycline Hyclate 100 MG CAP PO ×2 (08:15→20:28)
[2022-08-20] MEDS: Pantoprazole 40 MG TABCR PO ×2 (08:15→20:29)
[2022-08-20 08:37] VITALS: PULSE 94; O2SAT 100
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
[2022-08-20 11:26] LABS: Vancomycin, Trough 12.4 ug/mL (10.0-20.0)
[2022-08-20] MEDS: Normal Saline 500 ML 100 ML IV (11:57)
[2022-08-20] MEDS: Normal Saline Flush 10 ML SYR IVP ×3 (11:57→20:51)
[2022-08-20] MEDS: VANCOMYCIN/WATER (PEG) 1 GM/200 ML BAG IV (11:58)
--- NOTE | 2022-08-20 17:33 | PTTR_ITS ---
Date of service: 08/20/22 Time of Service: 17:09 PT Notes Visit Reasons: acute on chronic back pain, DJD, ambulatory dysfun Inpatient Physical Therapy Treatment Note [facility] Date: 08/20/22 PRECAUTIONS: Fall, standard, contact, activity as tolerated SUBJECTIVE: Patient reports he is having a terrible day. Seated EOB. Agreeable to therapy after some consideration. Does not wish to go for a walk, however agreeable to bed mobility exercises and standing / side stepping. OBJECTIVE: PAIN: yes. Pain is the primary reason patient feels as though he could not go walking. BED MOBILITY/TRANSFERS Rolling L/R: min assist Supine-sit: mod assist Sit-supine: min assist Sit-stand: CGA Stand-sit: CGA Bed-Chair: CGA Chair-bed: CGA GAIT Assistive Device: Rollator Weight bearing: full Assist: CGA Distance: 4' sidestep up the bed VITALS: Closely monitored ASSESSMENT: Patient reports frustration that he was able to walk earlier, with Martha, but presently unable. Daughter reports that typically his day is the opposite, that he gets up and can hardly move at all but as the day goes on the more he does, the more he can do. This therapist assures patient and daughter that both of these are normal - the first sounds like diminishing energy, the s econd is stiffness that resolves with doing. Patient tolerates therapy well and is agreeable to work again tomorrow. Patient is seated EOB and resuming dinner at end of session. Another person, presumably spouse or S/O, is present throughout treatment. PLAN: Continue global strengthening per plan of care until patient is medically ready for discharge. TREATMENT CODE/TIME: 29019 Ther Ex 12 minutes beginning at 1709
--- NOTE | 2022-08-20 17:50 | W.PM.PROGNOT ---
Date of Service Date of service: 08/20/22 Time of Service: 17:50 Assessment and Plan Assessment and plan (1) Cellulitis of left knee: Status: Acute Assessment and plan: This is clearly improving. Continue vancomycin/ceftriaxone, pending MRSA and blood cultures. (2) Chronic low back pain: Status: Chronic Assessment and plan: Intensify pain management. Obtain MRI back. (3) UTI (urinary tract infection): Status: Acute Assessment and plan: In setting of chronic urinary retention/neurogenic bladder, present on admission. Self-catheterizes. Urine C&S w/ GNR >100,000 CFU. Continue empiric ceftriaxone. (4) Cough: Status: Acute Assessment and plan: Obtain CXR. Encourage pulmonary toilet. Above abx should be sufficient to treat PNA. (5) Ambulatory dysfunction: Status: Acute Assessment and plan: C/s PT. (6) Incomplete emptying of bladder: Status: Chronic Assessment and plan: Continue intermittent catheterization (7) Urinary retention: Status: Acute Assessment and plan: as above (8) BPH (benign prostatic hyperplasia): Assessment and plan: continue Proscar and Tamsulosin (9) Weakness: Status: Acute Assessment and plan: PT following (10) Patellar instability of right knee: Status: Acute Assessment and plan: XR stable. Continue working with PT. (11) Traumatic rupture of right quadriceps tendon: Status: Acute Assessment and plan: F/u as outpatient (12) Infected hardware in right leg: Status: Acute Assessment and plan: Continue chronic suppressive doxycycline. Follows w/Dr. Servando Trejo, [facility] and ortho @ [facility], Dr. Loja (13) Lumbar spinal stenosis: Status: Acute Assessment and plan: As above. Qualifiers: Neurogenic claudication status: with neurogenic claudication Qualified Code(s): M48.062 - Spinal stenosis, lumbar region with neurogenic claudication (14) Chronic diastolic CHF (congestive heart failure): Status: Acute Assessment and plan: Euvolemic. No change in therapy (15) Chronic atrial fibrillation: Status: Chronic Assessment and plan: Rate controlled, not on anticoagulation due to h/o GI bleeding. (16) Restless leg syndrome: Status: Chronic Assessment and plan: continue mirapex (17) Depression with anxiety: Status: Chronic Assessment and plan: continue Wellbutrin and Lexapro (18) Obstructive sleep apnea: Status: Chronic Assessment and plan: continue home CPAP (19) Anemia: Status: Chronic Assessment and plan: F/u as outpatient. (20) DVT prophylaxis: Status: Acute Assessment and plan: SCDs. Abstain from chemical DVT ppx due to h/o GI bleeding (21) Discharge planning issues: Status: Acute Assessment and plan: Full code Continues to require hospitalization Subjective Subjective Interval history since last seen: C/o bilateral lower back pain - starts in the center, radiates to both sides. Daughter Judy is on the phone and states that the back pain started before the fall. No dizziness, Cp, SOB. Reports a new productive cough (white sputum) starting last night. Denies n/v. Constipated. Last BM 3-4 days ago. Self-catheterizes. Exam Narrative Exam Narrative: General: Pleasant obese male who is sitting up at the side of the bed, A&Ox3, NAD HEENT: EOMI, MMM Heart: RRR, no m/r/g Lungs: rales R base Abdomen: soft, nontender, nondistended, rotund Extremities: trace edema BLEs, wrinkles; chronic venous stasis dermatitis Objective Last Vital Signs Temp 36.8 C 08/20/22 06:57 Pulse 94 H 08/20/22 08:37 Resp 20 08/20/22 04:36 BP 140/108 H 08/20/22 06:57 Pulse Ox 100 08/20/22 08:37 Laboratory Results - last 24 hr 08/19/22 08/20/22 08/20/22 19:15 04:00 04:40 Sodium 138 Potassium 3.5 Chloride 100 Carbon Dioxide 27.2 Anion Gap 10.8 BUN 25 H Creatinine 1.0 Est GFR (CKD-EPI 2020) 79.47 Glucose 154 H Calcium 9.0 Magnesium 2.1 Procalcitonin 0.3 TSH 0.97 Vancomycin Trough Random Vancomycin 22.7 08/20/22 11:05 Sodium Potassium Chloride Carbon Dioxide Anion Gap BUN Creatinine Est GFR (CKD-EPI 2020) Glucose Calcium Magnesium Procalcitonin TSH Vancomycin Trough 12.4 Random Vancomycin Time Spent with Patient Time Spent with Patient: 25-34 minutes Time was spent: preparing to see the patient(eg.review tests), obtaining and/or reviewing separately otained hiistory, ordering medications,tests, procedures, referring, communicating with other health healthcare economics manager, indepentently interpreting results, counseling the patient and care coordination
[2022-08-20] MEDS: Polyethylene Glycol 3350 17 GM PACKET PO (17:52)
--- NOTE | 2022-08-20 18:56 | DI.VRAD_ITS ---
PROCEDURE INFORMATION: Exam: XR Chest Exam date and time: 08/20/2022 6:46 PM Age: 72 years old Clinical indication: Other: New productive cough TECHNIQUE: Imaging protocol: Radiologic exam of the chest. Views: 1 view. COMPARISON: CR XR CHEST 1V IN DI DEPT 08/19/2022 9:10 AM FINDINGS: Lungs: Mild interstitial opacities No consolidation. Pleural spaces: No pleural effusion. No pneumothorax. Heart/Mediastinum: Grossly stable. Bones/joints: Unremarkable. IMPRESSION: Mild interstitial opacities which may be infectious/inflammatory versus mild edema Dictated and Authenticated by: Mathieu Luther MD. Ordering:SHYANN Montoya MD
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
[2022-08-20] MEDS: Magnesium Oxide 400 MG TAB PO (20:28)
[2022-08-20] MEDS: Methocarbamol 750 MG TAB 1500 MG PO (20:28)
[2022-08-20] MEDS: guaiFENesin 600 MG TABCR PO (20:29)
[2022-08-20] MEDS: cefTRIAXone 2 GM/50 ML BAG IVPB (20:30)
[2022-08-20] MEDS: Lactobacillus Acidophilus CAP 1 CAP PO (20:43)
[2022-08-20] MEDS: Pramipexole 0.5 MG TAB 2 MG PO (21:50)
[2022-08-21] MEDS: VANCOMYCIN/WATER (PEG) 1 GM/200 ML BAG IV ×2 (00:01→12:12)
[2022-08-21] MEDS: Furosemide 40 MG TAB 80 MG PO ×2 (05:52→11:55)
[2022-08-21] MEDS: Carbidopa 25/Levodopa 100 TAB PO ×3 (05:52→17:55)
[2022-08-21 07:56] VITALS: BP 111/76; PULSE 90; TEMP 35.8; O2SAT 95
[2022-08-21 08:37] LABS: Abs Immature Grans 0.03 10^3/uL (0.0-0.06); Absolute Basophil Count 0.05 10^3/uL (0.0-0.2); Absolute Eosinophil Count 0.26 10^3/uL (0.0-0.7); Absolute Lymphocyte Count 1.11 10^3/uL (1.2-3.4); Absolute Monocyte Count 0.94 10^3/uL (0.1-0.8); Basophils % 0.6; HCT 37.3 % (40.0-50.0); HGB 11.4 g/dL (13.5-17.5); Immature Grans % 0.3; Lymphocytes % 12.8; MCH 25.1 pg (27.0-33.0); MCHC 30.6 % (32.0-36.0); MCV 82 fL (80-95); MPV 8.4 fL (8.0-11.0); Monocytes % 10.8; Neutrophils % 72.5; Platelet Count 283 10^3/uL (130-400); RBC 4.55 10^6/uL (4.36-5.78); RDW 20.4 % (11.8-14.1); RDW-SD 61.4 fL; WBC 8.69 10^3/uL (4.4-10.8)
[2022-08-21] MEDS: Psyllium PKT 1 EACH PO ×2 (08:47→21:25)
[2022-08-21] MEDS: Pantoprazole 40 MG TABCR PO ×2 (08:48→21:24)
[2022-08-21] MEDS: Gabapentin 300 MG CAP 900 MG PO ×2 (08:48→21:25)
[2022-08-21] MEDS: Cholecalciferol (Vitamin D3) 1,000 UNIT TAB 2000 UNITS PO (08:48)
[2022-08-21] MEDS: Methocarbamol 750 MG TAB 1500 MG PO ×4 (08:48→21:23)
[2022-08-21] MEDS: buPROPion-XL 150 MG TABCR PO (08:48)
[2022-08-21] MEDS: Spironolactone 25 MG TAB PO (08:48)
[2022-08-21] MEDS: Docusate Sodium 100 MG CAP PO ×2 (08:48→21:24)
[2022-08-21] MEDS: Tamsulosin 0.4 MG CAPCR PO (08:48)
[2022-08-21] MEDS: Escitalopram 20 MG TAB PO (08:49)
[2022-08-21] MEDS: Acetaminophen 500 MG TAB 1000 MG PO ×3 (08:49→21:22)
[2022-08-21] MEDS: Doxycycline Hyclate 100 MG CAP PO ×2 (08:49→21:25)
[2022-08-21] MEDS: Finasteride 5 MG TAB PO (08:49)
[2022-08-21 08:56] LABS: Anion Gap 8.8 mmol/L (3-11); BUN 21 mg/dL (7-18); CO2 27.2 mmol/L (21.0-32.0); Calcium 8.7 mg/dL (8.5-10.1); Chloride 101 mmol/L (98-107); Estimated GFR 79.47 (mL/min/1.73m2); Glucose 169 mg/dL (74-106); Potassium 3.1 mmol/L (3.5-5.1); Sodium 137 mmol/L (136-145)
[2022-08-21] MEDS: guaiFENesin 600 MG TABCR PO ×2 (09:01→21:23)
[2022-08-21 09:08] LABS: C-Reactive Protein > 25.00 mg/dL (0.0-0.3)
[2022-08-21 09:09] LABS: Anisocytosis 1+; Diff Comment RBC Morph Reviewed
[2022-08-21 09:28] LABS: Lab Add On Test DONE
[2022-08-21 09:52] LABS: NT-proBNP 2839 pg/mL (<300)
[2022-08-21] MEDS: Potassium Chloride 20 MEQ TABCR 40 MEQ PO (10:17)
[2022-08-21 10:25] LABS: Procalcitonin 0.2 ng/mL
[2022-08-21 11:23] LABS: Vancomycin, Trough 10.7 ug/mL (10.0-20.0)
[2022-08-21] MEDS: Normal Saline 500 ML 10 ML IV (11:47)
[2022-08-21] MEDS: Milk of Magnesia 30 ML CUP PO ×2 (11:48→20:56)
[2022-08-21] MEDS: Normal Saline Flush 10 ML SYR IVP ×2 (11:57→17:45)
[2022-08-21] MEDS: VANCOMYCIN/WATER (PEG) 1.25 GM/250 ML BAG IV (12:15)
[2022-08-21] MEDS: Bisacodyl 10 MG SUPP PR (12:44)
--- NOTE | 2022-08-21 13:12 | PT.INTREAT ---
Date of service: 08/21/22 Time of Service: 11:35 PT Notes Visit Reasons: Acute on Chronic Back Pain,DJD,Ambulatory Dysfunca Inpatient Physical Therapy Treatment Note [facility] Date: 08/21/2022 PRECAUTIONS:WBAT on bilateral LEs, Fall, Activities as tolerated and Contact Precautions. SUBJECTIVE: Pain level increases a little with ambulation. Hungry today. OBJECTIVE: PAIN: 4/10 at rest and 5-6/10 with ambulation. Bed Mobility/Transfers: Rolling? SBA Supine to sit SBA with HOB at 40 degrees Sit to supine minimal assist with legs Sit to stand SBA with bed height elevated Stand to sit SBA Gait: Instructed patient with level surface ambulation of 65 feet? + 129 feet using front-wheel walker with WBAT on the right LE, with knee brace in place, requiring stand by assist. Decreased knee extension in R. No LOB. No buckling in the right knee.?Took a short seated break between walks, on edge of bed. ASSESSMENT: Tolerated ambulation very well and with adjustment of bed height for sit to stand required only SBA. PLAN: Continue to work on improved ADL function. Does have a flight of stairs to do at home, so will need to work on stair ambulation prior to discharge. TREATMENT CODE/TIME: 35796 x 2, 11:35 to 12:00 (25')
--- NOTE | 2022-08-21 17:38 | W.PM.PROGNOT ---
Date of Service Date of service: 08/21/22 Time of Service: 17:39 Assessment and Plan Assessment and plan (1) Cellulitis of left knee: Status: Acute Assessment and plan: This is clearly improving. Today he has a dressing on his knee, but there is no surrounding erythema. Continue ceftriaxone. MRSA negative. Blood cultures negative. D/c vancomycin. (2) Chronic diastolic CHF (congestive heart failure): Status: Acute Assessment and plan: Does have pulmonary edema per CXR and pro-BNP is elevated. Will give 1 dose of IV furosemide 40 mg in addition to continuing PO furosemide at home dose. (3) Chronic low back pain: Status: Chronic Assessment and plan: Pain controlled. Continue PT, current medication regimen. Await MRI back. (4) UTI (urinary tract infection): Status: Acute Assessment and plan: In setting of chronic urinary retention/neurogenic bladder, present on admission. Self-catheterizes. Urine C&S w/ GNR >100,000 CFU. Await speciation. Continue empiric ceftriaxone. (5) Cough: Status: Acute Assessment and plan: CXR w/o PNA, but could clinically have bronchitis. Sputum culture is pending. There is also evidence of pulmonary edema. Will give one dose of IV furosemide 40 mg in addition to continuing his home PO furosemide. Encourage pulmonary toilet. (6) Ambulatory dysfunction: Status: Acute Assessment and plan: C/s PT. (7) Incomplete emptying of bladder: Status: Chronic Assessment and plan: Continue intermittent catheterization (8) Urinary retention: Status: Acute Assessment and plan: as above (9) BPH (benign prostatic hyperplasia): Assessment and plan: continue Proscar and Tamsulosin (10) Weakness: Status: Acute Assessment and plan: PT following (11) Patellar instability of right knee: Status: Acute Assessment and plan: XR stable. Continue working with PT. (12) Traumatic rupture of right quadriceps tendon: Status: Acute Assessment and plan: F/u as outpatient (13) Infected hardware in right leg: Status: Acute Assessment and plan: Continue chronic suppressive doxycycline. Follows w/Dr. Servando Trejo, [facility] [place] and ortho @ [facility] [place], Dr. Loja (14) Lumbar spinal stenosis: Status: Acute Assessment and plan: As above. Qualifiers: Neurogenic claudication status: with neurogenic claudication Qualified Code(s): M48.062 - Spinal stenosis, lumbar region with neurogenic claudication (15) Chronic atrial fibrillation: Status: Chronic Assessment and plan: Rate controlled, not on anticoagulation due to h/o GI bleeding. (16) Restless leg syndrome: Status: Chronic Assessment and plan: continue mirapex (17) Depression with anxiety: Status: Chronic Assessment and plan: continue Wellbutrin and Lexapro (18) Obstructive sleep apnea: Status: Chronic Assessment and plan: continue home CPAP (19) Anemia: Status: Chronic Assessment and plan: F/u as outpatient. (20) DVT prophylaxis: Status: Acute Assessment and plan: SCDs. Abstain from chemical DVT ppx due to h/o GI bleeding (21) Discharge planning issues: Status: Acute Assessment and plan: Full code Continues to require hospitalization Subjective Subjective Interval history since last seen: Mr Méndez states he is feeling better. His back pain is a little better. He has more energy. He is coughing less. Cough is still productive of white sputum. NO dizziness, CP, nausea. L knee is not hurting. R hip is not hurting. Neither is the left hip, which he did report as painful when he first presented. Per daughter, who is in the room with the patient, his legs have not looked this good in a long time. Exam Narrative Exam Narrative: General: Pleasant obese male who is sitting up in a chair, A&Ox3, NAD, does look better HEENT: EOMI, MMM Heart: RRR, no m/r/g Lungs: rales R base are much improved Abdomen: soft, nontender, nondistended, rotund Extremities: trace edema BLEs, wrinkles; chronic venous stasis dermatitis Objective Last Vital Signs Temp 35.8 C L 08/21/22 07:56 Pulse 90 08/21/22 07:56 Resp 20 08/20/22 04:36 BP 111/76 08/21/22 07:56 Pulse Ox 95 08/21/22 07:56 Laboratory Results - last 24 hr 08/21/22 08/21/22 08/21/22 08:00 08:00 08:00 WBC 8.69 RBC 4.55 Hgb 11.4 L Hct 37.3 L MCV 82 MCH 25.1 L MCHC 30.6 L RDW 20.4 H Plt Count 283 MPV 8.4 Immature Gran % 0.3 Neutrophils % 72.5 Lymphocytes % 12.8 Monocytes % 10.8 Eosinophils % 3.0 Basophils % 0.6 Nucleated RBC % 0.0 Absolute Neutrophils 6.30 Absolute Lymphocytes 1.11 L Absolute Monocytes 0.94 H Absolute Eosinophils 0.26 Absolute Basophils 0.05 RBC Morphology See Below Anisocytosis 1+ Sodium 137 Potassium 3.1 L Chloride 101 Carbon Dioxide 27.2 Anion Gap 8.8 BUN 21 H Creatinine 1.0 Est GFR (CKD-EPI 2020) 79.47 Glucose 169 H Calcium 8.7 Magnesium 2.0 C-Reactive Protein > 25.00 H NT-Pro-B Natriuret Pep Procalcitonin Vancomycin Trough Add-On Test Request DONE 08/21/22 08/21/22 08/21/22 08:00 08:00 11:00 WBC RBC Hgb Hct MCV MCH MCHC RDW Plt Count MPV Immature Gran % Neutrophils % Lymphocytes % Monocytes % Eosinophils % Basophils % Nucleated RBC % Absolute Neutrophils Absolute Lymphocytes Absolute Monocytes Absolute Eosinophils Absolute Basophils RBC Morphology Anisocytosis Sodium Potassium Chloride Carbon Dioxide Anion Gap BUN Creatinine Est GFR (CKD-EPI 2020) Glucose Calcium Magnesium C-Reactive Protein NT-Pro-B Natriuret Pep 2839 H Procalcitonin 0.2 Vancomycin Trough 10.7 Add-On Test Request Objective Narrative Objective Narrative: CXR: Cardiomegaly.? Mild pulmonary edema not excluded. Time Spent with Patient Time Spent with Patient: 25-34 minutes Time was spent: preparing to see the patient(eg.review tests), obtaining and/or reviewing separately otained hiistory, ordering medications,tests, procedures, referring, communicating with other health physician primary care sports medicine, indepentently interpreting results, counseling the patient and care coordination
[2022-08-21] MEDS: Furosemide 40 MG/4 ML VIAL IVP (17:45)
--- NOTE | 2022-08-21 19:18 | WOUNDCONS_ITS ---
- If Service Date Differs Date of service: 08/21/22 Time of Service: 19:18 Wound Initial Evaluation Narrative: Patient is a 72 year old male with h/o PD, cauda equina syndrome, DJD, morbid obesity, MARTÍN and restless leg syndrome. Patient ambulates with walker/cane at baseline and was admitted for ambulatory dysfunction due to weakness s/p fall from bed.This wound consult was requested for evaluation of abrasion on left knee d/t the fall. Patient agreed to consult with appropriate photo consent signed by the patient. A photo provided by daughter of patient face down on carpeted floor with lower extremities flexed and abducted in extreme position explains the abrasion on the anterior left knee. The patient reports that, prior to EMS arrival, he was rolling from side to side to extricate blankets from beneath his body. Patient chart was reviewed including H&P, Summary, VS, MAR, recent labs and reports, and allergies. The pear shaped abrasion on the left knee was irrigated with Anasept with gauze to remove minimal exudate and the photo below was taken. Body Four View: 1 - Abrasion on left knee - Wound Left Anterior Knee Wound Type: Abrasion Wound General Appearance: Reddened Wound Bed Greatest Portion: Yellow (Slough) Wound Surrounding Tissue Appearance: [place] Percent of Wound Bed Slough/Yellow: 95 Wound Length: 7 cm Wound Width: 5 cm Wound Depth: 0.1 cm Wound Drainage Amount: Minimal Wound Drainage Odor: None/Absent Wound Drainage Description: Brown, Green Wound Topical Solution/Irrigant: Other (Anasept) Wound Debridement Method: Gauze Wound Debridement Result: Yellow Sloughing Remains Wound Debridement Amount of Tissue Removed: Minimal Additional Other Comments: Pt denied pain prior to/during/nor after dressing change - Circulation, Sensation, Motion Edema Degree: Trace Peripheral Pulse Strength: Normal Sensation Description: Within Normal Limits Skin Temperature: Warm Skin Color: [place] - Pain Pain Level: 0 After removing the dressing dated 08/20/22 the pear shaped abrasion was irrigated with Anasept which was sprayed on the wound and debrided with gauze. A thin layer of Skintegrity gel was applied and the wound was covered with a 4x4 Mepilex and secured with Medipore tape. Patient denied pain during and after the dressing change. Daughter Karen was in the room to take photos using personal camera and asking questions regarding plan of care for wound healing. - Treatment/Dressing Change Topicals/Ointments: Other (Skintegrity) Dressing Types: Mepilex w/Border Dressing Comment: Medipore tape used on Mepilex border to prevent dressing removal during ambulation. - Nutrition Education Reviewed Nutrition Education: Yes Note: Patient reports recent decreased appetite. This singer songwriter encouraged patient to consume necessary protein for optimal wound healing. - Recomendation Recomendation:: Remove Dressing Daily: -[place] wound with Anasept let dwell for 2 minutes and pat dry with gauze - Apply thin layer of Skintegrity -Apply Mepilex dressing and secure with Medipore tape Physcian/Nurse Practioner Notified: Yes Treatment Time - Time Total Time Spent with Patient: 45
[2022-08-21 20:16] VITALS: BP 106/78; PULSE 80; RESP 20; TEMP 37.2; O2SAT 97
[2022-08-21] MEDS: cefTRIAXone 2 GM/50 ML BAG IVPB (21:10)
[2022-08-21] MEDS: Magnesium Oxide 400 MG TAB PO (21:23)
[2022-08-21] MEDS: Lactobacillus Acidophilus CAP 1 CAP PO (21:23)
[2022-08-21] MEDS: Pramipexole 0.5 MG TAB 2 MG PO (21:24)
--- NOTE | 2022-08-22 | DI.MRI_ITS ---
Exam(s) MR THORACIC SPINE WO EXAM: MR THORACIC SPINE WO CLINICAL HISTORY: myelopathy, fall. TECHNIQUE: Multiplanar multisequence MRI of the Thoracic spine was performed. COMPARISON: CR,XR XR PORTABLE CHEST AP POST LINE from 11/21/2021 CR,XR XR CHEST 1V IN DI DEPT from 08/19/2022 CR,XR XR PORTABLE CHEST AP from 08/20/2022 MR MR CERVICAL SPINE WO from 08/22/2022 FINDINGS: Bones: The vertebral body heights are well maintained. Alignment is satisfactory. The signal characte ristics are unremarkable. Endplate osteophytes are present and project anteriorly and toward the ri ght. Cord: The thoracic cord is normal size and signal intensity. No intrinsic cord lesion is present. Discs: No disc herniation or bulge is present. Soft tissues: Sebaceous cyst noted at the T10 level. No evidence of disc herniation, central canal stenosis or neural foraminal narrowing at any level. IMPRESSION: Degenerative disc changes without encroachment into the central canal or neural foramen. DATA REPOSITORY:
--- NOTE | 2022-08-22 | DI.MRI_ITS ---
Exam(s) MR CERVICAL SPINE WO EXAM: MR CERVICAL SPINE WO CLINICAL HISTORY: h/o myelopathy TECHNIQUE: Multiplanar multisequence MRI of the cervical spine was performed without intravenous con trast. COMPARISON: DX XR CERVICAL SPINE 2 OR 3 VIEWS from 11/16/2019 FINDINGS: The exam is limited by motion. BONES: Postsurgical changes at L3 through L5 with posterior fusion hardware and decompression laminec esteban. Stable appearance of some reversal of the normal cervical lordosis in the lower cervical regio n.. Bone marrow signal intensity is within normal limits. CERVICAL CORD: Craniovertebral junction is unremarkable. The cervical cord is normal size and signal intensity. SOFT TISSUES: Unremarkable. C2-3: Mild disc bulging. No evidence of neural foraminal narrowing. No significant central canal hill nosis C3-4: No disc herniation or bulge is identified. No evidence of neural foraminal narrowing. No signif icant central canal stenosis C4-5: No disc herniation or bulge is identified. No evidence of neural foraminal narrowing. No signif icant central canal stenosis C5-6: Endplate osteophytes and concentric disc bulging.No evidence of neural foraminal narrowing. No significant central canal stenosis C6-7: Partial fusion seen anteriorly between the C6 and C7 vertebral bodies. Stable moderate xiomy chantell of the C7 vertebral body. No disc herniation or bulge is identified. No evidence of neural fora lucy narrowing. No significant central canal stenosis C7-T1: Endplate osteophytes and mild disc bulging. Facet degenerative changes combine to produce sev ere bilateral neural foraminal narrowing.. No significant central canal stenosis IMPRESSION: Exam limited by motion. Postsurgical and degenerative changes. Bilateral neural foraminal narrowing at C7-T1.. DATA REPOSITORY:
--- NOTE | 2022-08-22 | DI.MRI_ITS ---
Exam(s) MR LUMBAR SPINE WO EXAM: MR LUMBAR SPINE WO CLINICAL HISTORY: myelopathy, fall. TECHNIQUE: Multiplanar multisequence MRI of the Lumbar spine was performed. COMPARISON: CT CT LUMBAR SPINE WO from 08/19/2022 FINDINGS: Bones: The last intervertebral disc space is designated the L5/S1 level for the numbering purpose of this examination. The vertebral body heights are well maintained. Alignment is satisfactory. The si gnal characteristics are unremarkable. Prominent endplate osteophytes.. Posterior fusion hardware from L2 through L4 and laminectomy defects. Hardware creates significant a rtifact. Cord: The conus tip ends at the T12 level. It is of normal size and signal intensity. T12-L1: No disc herniations or bulges are present. No significant central canal stenosis or neural f oraminal narrowing. L1-2: No disc herniations or bulges are present. No significant central canal stenosis or neural fo raminal narrowing. L2-3: No disc herniations or bulges are present. No significant central canal stenosis or neural fora lucy narrowing. L3-4: No disc herniations or bulges are present. No significant central canal stenosis or neural for aminal narrowing. L4-5: Disc height is maintained. Mild disc bulging. Facet degenerative changes and ligamentous hyp ertrophy cause moderate to severe bilateral neural foraminal narrowing. There is also moderate to se lorin central canal stenosis. Evaluation is somewhat limited due to artifact from hardware. L5-S1: Small endplate osteophytes. Mild disc bulging. Mild facet degenerative changes. No signifi cant central canal stenosis or neural foraminal narrowing. Soft tissues: The visualized SI joints shows anterior spurring.. The paraspinal soft tissues show po sterior scarring. IMPRESSION: Postsurgical changes from L2 through L4. Combination of degenerative disc changes and facet degenerative changes cause bilateral neural forami nal narrowing and moderate to severe central canal stenosis. DATA REPOSITORY:
[2022-08-22] MEDS: Furosemide 40 MG TAB 80 MG PO ×2 (06:20→12:58)
[2022-08-22] MEDS: Carbidopa 25/Levodopa 100 TAB PO ×3 (06:20→18:01)
[2022-08-22 07:03] LABS: Abs Immature Grans 0.04 10^3/uL (0.0-0.06); Absolute Basophil Count 0.06 10^3/uL (0.0-0.2); Absolute Eosinophil Count 0.31 10^3/uL (0.0-0.7); Absolute Monocyte Count 0.78 10^3/uL (0.1-0.8); Absolute Neutrophil Count 6.35 10^3/uL (1.2-6.7); Basophils % 0.7; Eosinophils % 3.7; HCT 34.5 % (40.0-50.0); HGB 10.7 g/dL (13.5-17.5); Immature Grans % 0.5; Lymphocytes % 10.7; MCH 25.3 pg (27.0-33.0); MCV 82 fL (80-95); MPV 8.3 fL (8.0-11.0); Monocytes % 9.2; Neutrophils % 75.2; Platelet Count 302 10^3/uL (130-400); RBC 4.23 10^6/uL (4.36-5.78); RDW 20.2 % (11.8-14.1); RDW-SD 60.1 fL; WBC 8.44 10^3/uL (4.4-10.8)
[2022-08-22 07:09] VITALS: BP 128/91; PULSE 101; TEMP 36.2; O2SAT 96
[2022-08-22 07:25] LABS: Anion Gap 10.9 mmol/L (3-11); BUN 21 mg/dL (7-18); CO2 27.1 mmol/L (21.0-32.0); CREATININE 0.9 mg/dL (0.70-1.30); Calcium 8.9 mg/dL (8.5-10.1); Chloride 99 mmol/L (98-107); Estimated GFR 90.18 (mL/min/1.73m2); Glucose 160 mg/dL (74-106); Magnesium 2.1 mg/dL (1.8-2.4); Potassium 3.2 mmol/L (3.5-5.1); Sodium 137 mmol/L (136-145)
[2022-08-22] MEDS: buPROPion-XL 150 MG TABCR PO (07:34)
[2022-08-22] MEDS: Pantoprazole 40 MG TABCR PO ×2 (07:34→20:37)
[2022-08-22] MEDS: Tamsulosin 0.4 MG CAPCR PO (07:34)
[2022-08-22] MEDS: Doxycycline Hyclate 100 MG CAP PO ×2 (07:34→20:34)
[2022-08-22] MEDS: Spironolactone 25 MG TAB PO (07:34)
[2022-08-22] MEDS: Docusate Sodium 100 MG CAP PO ×2 (07:34→20:32)
[2022-08-22] MEDS: Psyllium PKT 1 EACH PO ×2 (07:34→20:34)
[2022-08-22] MEDS: Methocarbamol 750 MG TAB 1500 MG PO ×4 (07:34→20:31)
[2022-08-22] MEDS: Escitalopram 20 MG TAB PO (07:35)
[2022-08-22] MEDS: Acetaminophen 500 MG TAB 1000 MG PO ×3 (07:35→20:33)
[2022-08-22] MEDS: Cholecalciferol (Vitamin D3) 1,000 UNIT TAB 2000 UNITS PO (07:35)
[2022-08-22] MEDS: Finasteride 5 MG TAB PO (07:35)
[2022-08-22] MEDS: Gabapentin 300 MG CAP 900 MG PO ×2 (07:35→20:33)
[2022-08-22] MEDS: guaiFENesin 600 MG TABCR PO ×2 (07:35→20:32)
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
[2022-08-22] MEDS: MORPHine 4 MG/ML SYR IVP (11:11)
--- NOTE | 2022-08-22 14:15 | CHAPLAIN ---
Cosmo was in bed when I visited. He had been talking to his daughter on the phone, but the phone had dropped to floor. His daughter remained on the line while I picked up the phone, and stayed on the phone. I explained my role and offered support.
--- NOTE | 2022-08-22 14:21 | PT.INTREAT ---
Date of service: 08/22/22 Time of Service: 10:05 PT Notes Visit Reasons: Acute on Chronic Back Pain,DJD,Ambulatory Dysfunca Inpatient Physical Therapy Treatment Note [facility] Date: 08/22/22 PRECAUTIONS: Fall, standard, activity as tolerated SUBJECTIVE: Patient supine in bed, reports already in pain, agreeable to therapy but not agreeable to walk without pain medication OBJECTIVE: PAIN: yes BED MOBILITY/TRANSFERS Rolling L/R: standby Supine-sit: mod assist Sit-supine: min assist THERACT: Patient participates in bed mobility training, leg plate driller supplied and patient instructed in its use. ASSESSMENT: Patient tolerates therapy well, resting in bed at end of session PLAN: Continue global strengthening per plan of care TREATMENT CODE/TIME: [id number] Ther Act 13 minutes beginning at 10:05
[2022-08-22] MEDS: Potassium Chloride 20 MEQ TABCR 40 MEQ PO ×2 (14:54→15:49)
[2022-08-22] MEDS: Methylnaltrexone 12 MG/0.6 ML VIAL SC (17:19)
--- NOTE | 2022-08-22 18:30 | DI.RAD_ITS ---
Exam(s) XR ABDOMEN FLAT UPRIGHT EXAM: 2D digital imaging was performed. CLINICAL HISTORY: severe constipation/ obstipation. COMPARISON: CR,RF RF BARIUM ENEMA from 05/16/2022 CR,XR XR CHEST 1V IN DI DEPT from 08/19/2022 CR,XR XR PORTABLE CHEST AP from 08/20/2022 TECHNIQUE: Supine and uprightSupine and Lateral views of the abdomen were performed. FINDINGS: BOWEL GAS PATTERN: Dilated bowel loops with air-fluid levels are noted. Stool is visible mainly on t he right side of the colon. No free air. OSSEOUS STRUCTURES: Postsurgical and degenerative changes. Visualized portions of chest: Minimal blunting at the costophrenic angles. No gross infiltrates. IMPRESSION: Dilated bowel air-fluid levels, ileus versus obstruction. No free air. DATA REPOSITORY: RADIATION DOSE DELIVERED:
--- NOTE | 2022-08-22 18:38 | DI.VRAD_ITS ---
PROCEDURE INFORMATION: Exam: XR Abdomen Exam date and time: 08/22/2022 6:11 PM Age: 72 years old Clinical indication: Constipation TECHNIQUE: Imaging protocol: Radiologic exam of the abdomen. Views: 2 Views. Upright and supine views. COMPARISON: CT ABDOMEN PELVIS W 11/21/2021 5:53 PM FINDINGS: Gastrointestinal tract: Several moderately dilated loops of large and small bowel noted throughout the abdomen, a few of which exhibit air-fluid levels. Moderate fecal retention proximal colon. Intraperitoneal space: Normal. No free air. Bones/joints: Diffuse degenerative disc changes throughout the mid to lower spine. Orthopedic hardware noted in the lumbar spine. IMPRESSION: Abnormal nonspecific bowel-gas pattern as described. Follow-up CT abdomen and pelvis recommended. Dictated and Authenticated by: Ishan Bryant MD. Ordering:WILLIAM Sr MD
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
[2022-08-22] MEDS: Lactobacillus Acidophilus CAP 1 CAP PO (20:32)
[2022-08-22] MEDS: Pramipexole 0.5 MG TAB 2 MG PO (20:33)
[2022-08-22] MEDS: Magnesium Oxide 400 MG TAB PO (20:34)
[2022-08-22] MEDS: cefTRIAXone 2 GM/50 ML BAG IVPB (20:45)
[2022-08-22 21:10] LABS: Legionella Ag Detection Urine Negative (Negative)
[2022-08-22 23:36] VITALS: BP 97/71; PULSE 77; RESP 18; TEMP 36.7; O2SAT 93
--- NOTE | 2022-08-23 | DI.CT_ITS ---
Exam(s) CT ABDOMEN PELVIS W EXAM: CT ABDOMEN PELVIS W CLINICAL HISTORY: ileus vs bowel obstruction. TECHNIQUE: Imaging Protocol: Axial computed tomography images with coronal and sagittal reformatted images were created and reviewed CONTRAST MATERIAL: Intravenous: Omnipaque 350 Contrast volume:100 ml Oral: yes / COMPARISON: CT CT ABDOMEN PELVIS W from 11/21/2021 FINDINGS: ABDOMEN: Lung Bases: Heart markedly enlarged. Stable bilateral basilar scarring. Liver: Enlarged. Stable tiny cysts. No suspicious measurable mass. Gallbladder and biliary tract: A few stones are seen at the dependent portion of the gallbladder. No wall thickening or biliary dilatation. Pancreas: Normal density, no abnormal calcifications or inflammatory process. Spleen: Normal. Kidneys: Normal size, contour and axis. No radiodense stones or obstructive uropathy. No suspicious m asses seen. Adrenal glands: No masses seen. Abdominal Aorta: Abdominal portion non-dilated. Soft tissues: Marked thinning of the anterior abdominal wall. Sebaceous cyst again noted in the post erior subcutaneous fat of the lower thoracic region. PELVIS: Bladder: Markedly distended. Mild wall thickening. No calculi.No focal mass. Bowel: Cecum is markedly distended with stool to diameter of nearly 10 cm. A portion of the transver se colon is distended with air to 14 cm. A descending colon tense a small amount of stool and is les s distended. There is some stool in the rectum which is mildly distended. The stomach and small bow el are not abnormally distended although there is fecalization of distal small bowel loops.. No lizzy l wall thickening or pneumatosis. No focus of obstruction appendix normal. Peritoneal cavity: No ascites, collection or mesenteric inflammatory response. Bones: Postsurgical and degenerative changes in the lumbar spine. Reproductive organs: Within normal limits. Lymph nodes: Unremarkable. Impression: Marked colonic distention without evidence of obstruction. The cecum contains a large amount of stoo l. The remainder of the colon contains mainly air. Stool is noted in the rectum which is only mildl y distended. No small bowel dilatation. RADIATION DOSE DELIVERED: 2,960.01mGy.cm Total DLP DATA REPOSITORY: All CT scans at this facility are submitted to the National Radiology Data Registry (NRDR) Dose Index Registry (DIR) with the [employer] (ACR). RADIATION OPTIMIZATION: All CT scans at this facility use at least one of these dose optimization te chniques: automated exposure control; mA and/or kV adjustment per patient size (includes targeted exa ms where dose is matched to clinical indication); or iterative reconstruction.
[2022-08-23 07:07] LABS: Abs Immature Grans 0.04 10^3/uL (0.0-0.06); Absolute Basophil Count 0.04 10^3/uL (0.0-0.2); Absolute Eosinophil Count 0.34 10^3/uL (0.0-0.7); Absolute Lymphocyte Count 0.92 10^3/uL (1.2-3.4); Absolute Monocyte Count 0.94 10^3/uL (0.1-0.8); Absolute Neutrophil Count 7.15 10^3/uL (1.2-6.7); Basophils % 0.4; Eosinophils % 3.6; HCT 38.2 % (40.0-50.0); HGB 11.8 g/dL (13.5-17.5); Immature Grans % 0.4; Lymphocytes % 9.8; MCH 25.5 pg (27.0-33.0); MCHC 30.9 % (32.0-36.0); MCV 83 fL (80-95); MPV 8.4 fL (8.0-11.0); Neutrophils % 75.8; Platelet Count 368 10^3/uL (130-400); RBC 4.63 10^6/uL (4.36-5.78); RDW 20.4 % (11.8-14.1); RDW-SD 61.1 fL; WBC 9.43 10^3/uL (4.4-10.8)
[2022-08-23 07:43] LABS: Anion Gap 11.2 mmol/L (3-11); BUN 21 mg/dL (7-18); CO2 27.8 mmol/L (21.0-32.0); Calcium 9.7 mg/dL (8.5-10.1); Chloride 100 mmol/L (98-107); Estimated GFR 79.47 (mL/min/1.73m2); Glucose 122 mg/dL (74-106); Potassium 3.7 mmol/L (3.5-5.1); Sodium 139 mmol/L (136-145)
--- NOTE | 2022-08-23 08:08 | PT.INTREAT ---
PT Notes Visit Reasons: Acute on Chronic Back Pain,DJD,Ambulatory Dysfunca Date: 08/23/22 PRECAUTIONS: Fall, standard, activity as tolerated SUBJECTIVE: Pt. in bed, agreeable to participate in therapy. States his L LE feels a little weird upon standing to ambulate; reported pain in leg during gait rated . Pt. seen in afternoon, agreeable to therapy OBJECTIVE: ? PAIN: AM - 09/27 PM ? BED MOBILITY/TRANSFERS? Rolling L/R: standby Supine-sit: SBA ? Sit-supine: SBA? Gait: Ambulate to stairs and back to room - 2x100' + 2x20'? 4WW SBA/2x150' 4WW SBA PM Gait deviation: Antalgic gait? ASSESSMENT:? Pt tolerated gait training long distance and duration without report of knee buckling and increased ankle pain, pt will trial stairs in the gym for this afternoon's session./ Pt initially stated desire to do the stairs in the gym, but decided not to pursue after attempting first step due to pain in leg. Pt reported decrease in pain on trip back to room. PLAN: Continue with balance training, global strengthening and general conditioning for improved safety, mobility and activity tolerance. TREATMENT CODE/TIME: [id number] Therapeutic activity, [id number] gait training (9:00- 9:23 am/1:00-1:23PM)
[2022-08-23 08:09] LABS: Anisocytosis 2+; Diff Comment RBC Morph Reviewed
[2022-08-23] MEDS: Acetaminophen 500 MG TAB 1000 MG PO ×3 (08:56→19:45)
[2022-08-23] MEDS: Psyllium PKT 1 EACH PO ×2 (08:56→22:45)
[2022-08-23] MEDS: Methocarbamol 750 MG TAB 1500 MG PO ×4 (08:56→19:53)
[2022-08-23] MEDS: Tamsulosin 0.4 MG CAPCR PO (08:57)
[2022-08-23] MEDS: Doxycycline Hyclate 100 MG CAP PO ×2 (08:57→19:47)
[2022-08-23] MEDS: Cholecalciferol (Vitamin D3) 1,000 UNIT TAB 2000 UNITS PO (08:57)
[2022-08-23] MEDS: guaiFENesin 600 MG TABCR PO ×2 (08:57→19:49)
[2022-08-23] MEDS: Pantoprazole 40 MG TABCR PO ×2 (08:57→19:50)
[2022-08-23] MEDS: Spironolactone 25 MG TAB PO (08:57)
[2022-08-23] MEDS: buPROPion-XL 150 MG TABCR PO (08:57)
[2022-08-23] MEDS: Escitalopram 20 MG TAB PO (08:57)
[2022-08-23] MEDS: Finasteride 5 MG TAB PO (08:57)
[2022-08-23] MEDS: Gabapentin 300 MG CAP 900 MG PO ×2 (08:57→19:47)
[2022-08-23] MEDS: Lidocaine 5% Patch 3 PATCH TP (08:58)
[2022-08-23] MEDS: Docusate Sodium 100 MG CAP PO ×2 (08:58→19:48)
--- NOTE | 2022-08-23 11:02 | PDOC.CMPRO ---
Date of service: 08/23/22 Time of Service: 11:03 Care Management Progress Note Progress Note Text Progress Note Text: S/O:Cosmo was sitting up in a chair when CM met with him. He appeared to be good spirits but stated that he continues to have leg and back pain. Cosmo had a CT scan yesterday that suggested he may have an ileus or bowel obstruction. A surgical consult has been requested. Cosmo walked with PT today but stated he was not able to walk as far as he usually does. A:Cosmo is a 72 year old man admitted on 08/19/22 with back pain and a UTI P:Anticipate Cosmo will discharge home when medically cleared, possibly with new home health services. He will follow up with his community providers at the [place] and [facility] and transport with his daughter. CM will follow and support discharge planning needs.
[2022-08-23] MEDS: Furosemide 40 MG TAB 80 MG PO (12:02)
[2022-08-23] MEDS: Carbidopa 25/Levodopa 100 TAB PO ×2 (12:02→18:00)
[2022-08-23] MEDS: Breeza Beverage 473 ML BTL 946 ML PO (14:11)
[2022-08-23] MEDS: Omnipaque 350 MG/ML 50 ML BTL PO (14:12)
[2022-08-23 14:48] VITALS: BP 137/97; PULSE 56; RESP 18; TEMP 37.1; O2SAT 94
[2022-08-23] MEDS: Normal Saline - Diluent 50 ML VIAL IJ (16:16)
[2022-08-23] MEDS: Omnipaque 350 MG/ML 100 ML BTL IJ (16:19)
[2022-08-23] MEDS: Normal Saline Flush 10 ML SYR IVP (16:19)
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
--- NOTE | 2022-08-23 19:22 | PGE_ITS ---
Date of Service Date of service: 08/23/22 Time of Service: 19:28 Assessment and Plan Assessment and plan (1) Abdominal distention: Status: Acute Assessment and plan: Ogelvie's/pseudoobstruction of the colon. I have d/c'ed both long and short acting morphine and am writing for prn tramadol. He is already on gabapentin and scheduled tylenol. I am intensifying his scheduled bowel regimen including an enema tonight and tomorrow. Would schedule reglan tomorrow if still no BM. (2) Cellulitis of left knee: Status: Acute Assessment and plan: I will coordinate my visit with the nursing dressing change tomorrow so that I can see the knee better. There is no surrounding erythema. Continue ceftriaxone. MRSA negative. Blood cultures negative. (3) UTI (urinary tract infection): Status: Acute Assessment and plan: In setting of chronic urinary retention/neurogenic bladder, present on admission. Self-catheterizes. Urine C&S w/ Two different species of morganella. Both are sensitive to ceftriaxone. Continue ceftriaxone. (4) Chronic diastolic CHF (congestive heart failure): Status: Chronic Assessment and plan: Back to baseline. Continue outpatient diuretics. (5) Chronic low back pain: Status: Chronic Assessment and plan: Pain controlled, but we are about to change the medication regimen by discontinuing opioids and trialing tramadol instead. I anticipate a temporary worsening of his pain. Continue PT. (6) Cough: Status: Resolved Assessment and plan: CXR w/o PNA, but could clinically have bronchitis. Continue abx and diuretics. Encourage pulmonary toilet. (7) Ambulatory dysfunction: Status: Acute Assessment and plan: Continue working with PT. (8) Incomplete emptying of bladder: Status: Chronic Assessment and plan: Continue intermittent catheterization (9) Urinary retention: Status: Acute Assessment and plan: as above (10) BPH (benign prostatic hyperplasia): Assessment and plan: continue Proscar and Tamsulosin (11) Weakness: Status: Acute Assessment and plan: PT following (12) Patellar instability of right knee: Status: Acute Assessment and plan: XR stable. Continue working with PT. (13) Traumatic rupture of right quadriceps tendon: Status: Acute Assessment and plan: F/u as outpatient (14) Infected hardware in right leg: Status: Acute Assessment and plan: Continue chronic suppressive doxycycline. Follows w/Dr. Servando Trejo, [facility] [place] and ortho @ [facility] [place], Dr. Loja (15) Lumbar spinal stenosis: Status: Acute Assessment and plan: As above. Qualifiers: Neurogenic claudication status: with neurogenic claudication Qualified Code(s): M48.062 - Spinal stenosis, lumbar region with neurogenic claudication (16) Chronic atrial fibrillation: Status: Chronic Assessment and plan: Rate controlled, not on anticoagulation due to h/o GI bleeding. (17) Restless leg syndrome: Status: Chronic Assessment and plan: continue mirapex (18) Depression with anxiety: Status: Chronic Assessment and plan: continue Wellbutrin and Lexapro (19) Obstructive sleep apnea: Status: Chronic Assessment and plan: continue home CPAP (20) Anemia: Status: Chronic Assessment and plan: H/H is stable. F/u as outpatient. (21) DVT prophylaxis: Status: Acute Assessment and plan: SCDs. Abstain from chemical DVT ppx due to h/o GI bleeding (22) Discharge planning issues: Status: Acute Assessment and plan: Full code Continues to require hospitalization Subjective Subjective Interval history since last seen: Reports mid-abdominal pain, very little flatus, no BM x 7 days. No nausea. Tolerating a clear liquid diet. Reports LLE pain - tibial surface, anterior thigh, since last night. Denies dizziness, CP, SOB. Seen by surgery for his ileus vs Ogelvie's. Recommended continued clear liquid diet, backing off on opioids, prn enemas. Exam Narrative Exam Narrative: General: Pleasant obese male who is laying in bed, does not look comfortable, A&Ox3, NAD, abdomen looks more distended HEENT: EOMI, MMM Heart: RRR, no m/r/g Lungs: CTAB Abdomen: much more distended, tender midabdominally, +BS Extremities: trace edema BLEs, unchanged, wrinkles; no calf tenderness, L knee dressed - c/d/i, chronic venous stasis dermatitis Objective Last Vital Signs Temp 37.1 C 08/23/22 14:48 Pulse 56 L 08/23/22 14:48 Resp 18 08/23/22 14:48 BP 137/97 H 08/23/22 14:48 Pulse Ox 94 08/23/22 14:48 Laboratory Results - last 24 hr 08/21/22 08/23/22 08/23/22 15:45 06:35 06:35 WBC 9.43 RBC 4.63 Hgb 11.8 L Hct 38.2 L MCV 83 MCH 25.5 L MCHC 30.9 L RDW 20.4 H Plt Count 368 MPV 8.4 Immature Gran % 0.4 Neutrophils % 75.8 Lymphocytes % 9.8 Monocytes % 10.0 Eosinophils % 3.6 Basophils % 0.4 Nucleated RBC % 0.0 Absolute Neutrophils 7.15 H Absolute Lymphocytes 0.92 L Absolute Monocytes 0.94 H Absolute Eosinophils 0.34 Absolute Basophils 0.04 RBC Morphology See Below Anisocytosis 2+ Sodium 139 Potassium 3.7 Chloride 100 Carbon Dioxide 27.8 Anion Gap 11.2 H BUN 21 H Creatinine 1.0 Est GFR (CKD-EPI 2020) 79.47 Glucose 122 H Calcium 9.7 Urine Legionella Ag Negative Time Spent with Patient Time Spent with Patient: 25-34 minutes Time was spent: preparing to see the patient(eg.review tests), obtaining and/or reviewing separately otained hiistory, ordering medications,tests, procedures, referring, communicating with other health live in caregiver, indepentently interpreting results, counseling the patient and care coordination
[2022-08-23] MEDS: Magnesium Oxide 400 MG TAB PO (19:49)
[2022-08-23] MEDS: cefTRIAXone 2 GM/50 ML BAG IVPB (19:53)
[2022-08-23] MEDS: Senna TAB 1 TAB PO (22:45)
[2022-08-23] MEDS: Pramipexole 0.5 MG TAB 2 MG PO (22:45)
[2022-08-23] MEDS: Polyethylene Glycol 3350 17 GM PACKET PO (22:45)
[2022-08-23 23:18] LABS: Streptococcus Pneumoniae Ag, U Negative (Negative)
--- NOTE | 2022-08-24 | DI.RAD_ITS ---
Exam(s) XR FEMUR LT EXAM: XR FEMUR LT CLINICAL HISTORY: LLE pain post fall. TECHNIQUE: 2D digital imaging was performed. Three views. COMPARISON: None. FINDINGS: BONES: No acute fracture is present. No bony destructive lesion is seen. JOINTS: No dislocation present. Degenerative changes at the knee. Acetabular spurring. SOFT TISSUE: Normal. IMPRESSION: No evidence of acute fracture, dislocation, or subluxation. DATA REPOSITORY: RADIATION DOSE DELIVERED:
[2022-08-24] MEDS: traMADol 50 MG TAB PO ×2 (00:22→06:15)
[2022-08-24 00:24] VITALS: BP 98/68; PULSE 97; RESP 18; TEMP 37; O2SAT 92
[2022-08-24] MEDS: Carbidopa 25/Levodopa 100 TAB PO ×3 (06:12→17:54)
[2022-08-24 06:29] VITALS: BP 136/92; PULSE 58; RESP 18; TEMP 36.4; O2SAT 93
[2022-08-24] MEDS: Furosemide 40 MG TAB 80 MG PO ×2 (06:57→11:35)
[2022-08-24 07:47] LABS: Abs Immature Grans 0.05 10^3/uL (0.0-0.06); Absolute Basophil Count 0.04 10^3/uL (0.0-0.2); Absolute Eosinophil Count 0.35 10^3/uL (0.0-0.7); Absolute Lymphocyte Count 0.99 10^3/uL (1.2-3.4); Absolute Monocyte Count 0.83 10^3/uL (0.1-0.8); Absolute Neutrophil Count 5.95 10^3/uL (1.2-6.7); Basophils % 0.5; Eosinophils % 4.3; HCT 35.9 % (40.0-50.0); Immature Grans % 0.6; Lymphocytes % 12.1; MCH 24.8 pg (27.0-33.0); MCHC 30.6 % (32.0-36.0); MCV 81 fL (80-95); MPV 8.1 fL (8.0-11.0); Monocytes % 10.1; Neutrophils % 72.4; Platelet Count 393 10^3/uL (130-400); RBC 4.44 10^6/uL (4.36-5.78); RDW 20.2 % (11.8-14.1); RDW-SD 59.1 fL; WBC 8.21 10^3/uL (4.4-10.8)
--- NOTE | 2022-08-24 08:00 | DI.US_ITS ---
Exam(s) US EXTREMITY VENOUS BI EXAM: US EXTREMITY VENOUS BI CLINICAL HISTORY: LLE pain; not on chemical DVT ppx. TECHNIQUE: Bilateral lower extremity venous ultrasound performed using grayscale, color-flow, and sp ectral Doppler analysis. COMPARISON: No exams were available for comparison FINDINGS: The bilateral common femoral, femoral and popliteal veins demonstrate normal compressibility, augment ation, and color Doppler. The posterior tibial veins are patent. A Lane's cyst is noted on the righ t measuring 4.7 x 1.5 x 4.0 cm. No left-sided Lane's cyst is seen. Mild lower leg subcutaneous guicho ma. IMPRESSION: Right: Negative for DVT. Lane's cyst. Left: Negative for DVT DATA REPOSITORY:
[2022-08-24 08:10] LABS: Anion Gap 8.7 mmol/L (3-11); BUN 15 mg/dL (7-18); CO2 29.3 mmol/L (21.0-32.0); CREATININE 0.9 mg/dL (0.70-1.30); Calcium 9.2 mg/dL (8.5-10.1); Chloride 100 mmol/L (98-107); Estimated GFR 90.18 (mL/min/1.73m2); Glucose 104 mg/dL (74-106); Potassium 3.7 mmol/L (3.5-5.1); Sodium 138 mmol/L (136-145)
[2022-08-24] MEDS: Psyllium PKT 1 EACH PO ×2 (08:38→22:48)
[2022-08-24] MEDS: Polyethylene Glycol 3350 17 GM PACKET PO ×2 (08:38→21:51)
[2022-08-24] MEDS: Doxycycline Hyclate 100 MG CAP PO ×2 (08:39→21:52)
[2022-08-24] MEDS: Acetaminophen 500 MG TAB 1000 MG PO ×3 (08:39→21:52)
[2022-08-24] MEDS: Tamsulosin 0.4 MG CAPCR PO (08:39)
[2022-08-24] MEDS: Cholecalciferol (Vitamin D3) 1,000 UNIT TAB 2000 UNITS PO (08:40)
[2022-08-24] MEDS: Pantoprazole 40 MG TABCR PO ×2 (08:40→21:55)
[2022-08-24] MEDS: buPROPion-XL 150 MG TABCR PO (08:40)
[2022-08-24] MEDS: Senna TAB 1 TAB PO ×2 (08:40→21:55)
[2022-08-24] MEDS: guaiFENesin 600 MG TABCR PO ×2 (08:40→21:55)
[2022-08-24] MEDS: Spironolactone 25 MG TAB PO (08:40)
[2022-08-24] MEDS: Docusate Sodium 100 MG CAP PO ×2 (08:40→21:53)
[2022-08-24] MEDS: Methocarbamol 750 MG TAB 1500 MG PO ×4 (08:40→21:54)
[2022-08-24] MEDS: Finasteride 5 MG TAB PO (08:40)
[2022-08-24] MEDS: Lidocaine 5% Patch 3 PATCH TP (08:40)
[2022-08-24] MEDS: Escitalopram 20 MG TAB PO (08:40)
[2022-08-24 09:03] LABS: Diff Comment RBC Morph Reviewed
[2022-08-24 09:05] LABS: Anisocytosis 2+
[2022-08-24] MEDS: Gabapentin 300 MG CAP 900 MG PO ×2 (09:37→21:53)
--- NOTE | 2022-08-24 09:50 | PGE_ITS ---
Date of Service Date of service: 08/24/22 Time of Service: 09:50 Assessment and Plan Assessment and plan (1) Abdominal distention: Status: Acute Assessment and plan: Cosmo is tolerating a clear liquid diet. He has had 1 large bowel movement yesterday however feels he could pass more stool today. Discussed with him that he may attempt/use another enema today to see if this helps stimulate passing flatus and stool. His abdomen continues to be significantly distended. This is not causing him any discomfort at this time. Encouraged ambulation and activity out of bed as tolerated. He currently has numerous bowel medications ordered to help promote/encourage GI motility and bowel movements. I saw and examined Cosmo, and I agree with this note that was started by Krystyna. He had a bowel movement yesterday, with the assistance of an enema. He denies any nausea or vomiting this morning, and has been tolerating clears without any difficulty. I think it be reasonable to slowly advance his diet. I have no opposition to another enema if he feels that is helpful. Subjective Subjective Interval history since last seen: Arrived with Cosmo sitting in the chair. He states he is feeling better than yesterday and is tolerating clear liquids. He had 2 enemas 1 of which was successful yesterday. He states that he feels like he may be able to have another bowel movement soon however is wondering if he could have another enema if necessary. Exam Const General: cooperative, healthy appearing and comfortable Orientation: alert and oriented x3 Resp Effort & Inspection: normal respiratory effort, no audible wheezes and no cough GI Inspection: distended and obesity Palpation: soft, no guarding and nontender Percussion: tympanic to percussion Auscultation: high-pitched sounds Objective Last Vital Signs Temp 36.4 C L 08/24/22 06:29 Pulse 58 L 08/24/22 06:29 Resp 18 08/24/22 06:29 BP 136/92 H 08/24/22 06:29 Pulse Ox 93 08/24/22 06:29 Laboratory Results - last 24 hr 08/21/22 08/24/22 08/24/22 15:45 07:18 07:18 WBC 8.21 RBC 4.44 Hgb 11.0 L Hct 35.9 L MCV 81 MCH 24.8 L MCHC 30.6 L RDW 20.2 H Plt Count 393 MPV 8.1 Immature Gran % 0.6 Neutrophils % 72.4 Lymphocytes % 12.1 Monocytes % 10.1 Eosinophils % 4.3 Basophils % 0.5 Nucleated RBC % 0.0 Absolute Neutrophils 5.95 Absolute Lymphocytes 0.99 L Absolute Monocytes 0.83 H Absolute Eosinophils 0.35 Absolute Basophils 0.04 RBC Morphology See Below Anisocytosis 2+ Sodium 138 Potassium 3.7 Chloride 100 Carbon Dioxide 29.3 Anion Gap 8.7 BUN 15 Creatinine 0.9 Est GFR (CKD-EPI 2020) 90.18 Glucose 104 Calcium 9.2 Magnesium 2.0 Ur Strep pneumoniae Ag Negative Time Spent with Patient Time Spent with Patient: <25 minutes Time was spent: preparing to see the patient(eg.review tests), referring, communicating with other health health care facilities inspector and counseling the patient
--- NOTE | 2022-08-24 10:32 | PT.INTREAT ---
PT Notes Visit Reasons: Acute on Chronic Back Pain,DJD,Ambulatory Dysfunca Date: 08/24/22 PRECAUTIONS: Fall, standard, activity as tolerated SUBJECTIVE: Pt. in recliner, agreeable to participate in therapy. pt reports that his feels much weaker today, his pain is staying the same at 8/10, Pt in bed when approached for therapy this afternoon, pt agreed to participating with therapy. OBJECTIVE: ? PAIN: 09/27 AM - 8 PM ? BED MOBILITY/TRANSFERS? sit to stand from recliner: CGA stand to sit to recliner: SBA stand to EOB: CGA? EOB to supine: min A for RLE elevation to get centered in bed Bed mobility doing upward movement: supervision Bed mobility doing side to side: supervision ? Gait: AM 50'x2, 10'x2 4WW CGA, PM 200', 100', 10'x2 4WW CGA Gait deviation: Antalgic gait? ASSESSMENT:? Pt in a lot of pain and weakness despite reporting feeling the same pain as yesterday. pt refused going furtherthat the distance covered, and requested to go in bed after therapy session. Pt much more energetic in the afternoon, able to tolerate longer distance and duration during gait training, pain stayed the same level. pt 4WW adjusted for improved braking. PLAN: Continue with balance training, global strengthening and general conditioning for improved safety, mobility and activity tolerance. TREATMENT CODE/TIME: 23580 gait training (10:00- 10:15 am/2:00-2:23PM)
[2022-08-24 15:04] VITALS: BP 112/73; PULSE 82; RESP 20; TEMP 36.5; O2SAT 96
--- NOTE | 2022-08-24 15:06 | W.PM.PROGNOT ---
Date of Service Date of service: 08/24/22 Time of Service: 15:07 Assessment and Plan Assessment and plan (1) Abdominal distention: Status: Acute Assessment and plan: Ogelvie's/pseudoobstruction of the colon. S/p one large BM, but still not at baseline. The distended abdomen is making it difficult for the patient to self-catheterize. Continue scheduled bowel regimen. I have reached to Dr Sierra re possibly advancing diet. Continue to avoid opioids. The patient's pain control is adequate on the regimen of gabapentin, tylenol, ultram. ?enema today. (2) Cellulitis of left knee: Status: Acute Assessment and plan: While the surrounding skin looks good, the secretions from the wound are slightly yellowish, so I do think antibiotics are still warranted. Continue ceftriaxone. MRSA negative. Blood cultures negative. (3) UTI (urinary tract infection): Status: Acute Assessment and plan: In setting of chronic urinary retention/neurogenic bladder, present on admission. Self-catheterizes, but this is difficult with his very distended abdomen currently. Urine C&S w/ Two different species of morganella. Both are sensitive to ceftriaxone. Continue ceftriaxone for now, but should be able to be switched to PO cefpodoxime on discharge. (4) Chronic diastolic CHF (congestive heart failure): Status: Chronic Assessment and plan: Back to baseline. Continue outpatient diuretics. (5) Chronic low back pain: Status: Chronic Assessment and plan: Pain controlled on scheduled tylenol, gabapentin, tramadol (I did increase the dose). Would need a new rx for tramadol on discharge. Continue PT. (6) Cough: Status: Resolved Assessment and plan: CXR w/o PNA, but could clinically have bronchitis. Continue abx and diuretics. Encourage pulmonary toilet. (7) Ambulatory dysfunction: Status: Acute Assessment and plan: Continue working with PT. (8) Incomplete emptying of bladder: Status: Chronic Assessment and plan: Continue intermittent catheterization. Abdominal distention makes that difficult. (9) Urinary retention: Status: Chronic Assessment and plan: as above (10) BPH (benign prostatic hyperplasia): Assessment and plan: continue Proscar and Tamsulosin (11) Weakness: Status: Acute Assessment and plan: PT following (12) Patellar instability of right knee: Status: Acute Assessment and plan: XR stable. Continue working with PT. (13) Traumatic rupture of right quadriceps tendon: Status: Acute Assessment and plan: F/u as outpatient (14) Infected hardware in right leg: Status: Acute Assessment and plan: Continue chronic suppressive doxycycline. Follows w/Dr. Servando Trejo, [facility] [place] and ortho @ [facility] [place], Dr. Loja (15) Lumbar spinal stenosis: Status: Acute Assessment and plan: As above. Qualifiers: Neurogenic claudication status: with neurogenic claudication Qualified Code(s): M48.062 - Spinal stenosis, lumbar region with neurogenic claudication (16) Chronic atrial fibrillation: Status: Chronic Assessment and plan: Rate controlled, not on anticoagulation due to h/o GI bleeding. (17) Restless leg syndrome: Status: Chronic Assessment and plan: continue mirapex (18) Depression with anxiety: Status: Chronic Assessment and plan: continue Wellbutrin and Lexapro (19) Obstructive sleep apnea: Status: Chronic Assessment and plan: continue home CPAP (20) Anemia: Status: Chronic Assessment and plan: H/H is stable. F/u as outpatient. (21) DVT prophylaxis: Status: Acute Assessment and plan: SCDs. Abstain from chemical DVT ppx due to h/o GI bleeding (22) Discharge planning issues: Status: Acute Assessment and plan: Full code Continues to require hospitalization Subjective Subjective Interval history since last seen: Mr Méndez states he is feeling a lot better today. He had a BM and feels he is about to pass more flatus. He denies dizziness, CP, SOB, nausea, abdominal pain. His back pain is much better. What hurts the most is his L thigh. I discussed the finding of russ's cyst with Mr Méndez and his daughter Judy on the phone. Mr Méndez feels that his face is at baseline, though Judy does not believe he usually has a facial droop on the right. I do remember this droop, but I think it's more exaggerated in his current position. Exam Narrative Exam Narrative: General: Pleasant obese male who is sitting up in a chair, and in this position appears to have a slight R facial droop which disappears on smiling, looks more comfortable, A&Ox3, NAD, abdomen looks slightly less distended HEENT: EOMI, MMM Heart: RRR, no m/r/g Lungs: CTAB Abdomen: slightly less distended, nontender, + hypoactive BS Extremities: trace edema BLEs, unchanged, wrinkles; no calf tenderness, L knee dressed - c/d/i, wound/dressing with slightly yellowish discharge, chronic venous stasis dermatitis Objective Last Vital Signs Temp 36.5 C 08/24/22 15:04 Pulse 82 08/24/22 15:04 Resp 20 08/24/22 15:04 BP 112/73 08/24/22 15:04 Pulse Ox 96 08/24/22 15:04 Laboratory Results - last 24 hr 08/21/22 08/24/22 08/24/22 15:45 07:18 07:18 WBC 8.21 RBC 4.44 Hgb 11.0 L Hct 35.9 L MCV 81 MCH 24.8 L MCHC 30.6 L RDW 20.2 H Plt Count 393 MPV 8.1 Immature Gran % 0.6 Neutrophils % 72.4 Lymphocytes % 12.1 Monocytes % 10.1 Eosinophils % 4.3 Basophils % 0.5 Nucleated RBC % 0.0 Absolute Neutrophils 5.95 Absolute Lymphocytes 0.99 L Absolute Monocytes 0.83 H Absolute Eosinophils 0.35 Absolute Basophils 0.04 RBC Morphology See Below Anisocytosis 2+ Sodium 138 Potassium 3.7 Chloride 100 Carbon Dioxide 29.3 Anion Gap 8.7 BUN 15 Creatinine 0.9 Est GFR (CKD-EPI 2020) 90.18 Glucose 104 Calcium 9.2 Magnesium 2.0 Ur Strep pneumoniae Ag Negative Time Spent with Patient Time Spent with Patient: 35-49 minutes Time was spent: preparing to see the patient(eg.review tests), obtaining and/or reviewing separately otained hiistory, ordering medications,tests, procedures, referring, communicating with other health disabilities caregiver, indepentently interpreting results, counseling the patient and care coordination
--- NOTE | 2022-08-24 15:39 | PDOC.CMPRO ---
Date of service: 08/24/22 Time of Service: 15:42 Care Management Progress Note Progress Note Text Progress Note Text: S/O: Cosmo remains inpatient, his insurance is denying his claim. No change to overall plan. CM continues to follow. A: Cosmo is a 72 year old man admitted on 08/19/22 with back pain and a UTI P: Anticipate Cosmo will discharge home when medically cleared, possibly with new home health services. He will follow up with his community providers at the [facility] and transport with his daughter. CM will follow and support discharge planning needs.
[2022-08-24] MEDS: cefTRIAXone 2 GM/50 ML BAG IVPB (21:51)
[2022-08-24] MEDS: Lactobacillus Acidophilus CAP 1 CAP PO (21:53)
[2022-08-24] MEDS: Pramipexole 0.5 MG TAB 2 MG PO (21:53)
[2022-08-24] MEDS: Magnesium Oxide 400 MG TAB PO (21:54)
[2022-08-24] MEDS: traMADol 50 MG TAB 100 MG PO (21:55)
[2022-08-24 22:47] VITALS: BP 122/81; PULSE 66; RESP 20; TEMP 37.2; O2SAT 96
[2022-08-25] MEDS: Furosemide 40 MG TAB 80 MG PO ×2 (06:35→12:02)
[2022-08-25] MEDS: Carbidopa 25/Levodopa 100 TAB PO ×3 (06:36→18:46)
[2022-08-25] MEDS: Pantoprazole 40 MG TABCR PO ×2 (06:36→20:19)
[2022-08-25 07:21] LABS: Abs Immature Grans 0.03 10^3/uL (0.0-0.06); Absolute Basophil Count 0.03 10^3/uL (0.0-0.2); Absolute Eosinophil Count 0.26 10^3/uL (0.0-0.7); Absolute Neutrophil Count 6.06 10^3/uL (1.2-6.7); Basophils % 0.4; Eosinophils % 3.1; HCT 35.2 % (40.0-50.0); HGB 10.9 g/dL (13.5-17.5); Immature Grans % 0.4; Lymphocytes % 13.3; MCH 25.1 pg (27.0-33.0); MCV 81 fL (80-95); Monocytes % 9.7; Neutrophils % 73.1; Platelet Count 397 10^3/uL (130-400); RBC 4.35 10^6/uL (4.36-5.78); RDW 20.1 % (11.8-14.1); RDW-SD 59.9 fL; WBC 8.28 10^3/uL (4.4-10.8)
[2022-08-25 07:39] LABS: Anion Gap 9.7 mmol/L (3-11); BUN 13 mg/dL (7-18); CO2 29.3 mmol/L (21.0-32.0); CREATININE 0.9 mg/dL (0.70-1.30); Chloride 102 mmol/L (98-107); Estimated GFR 90.18 (mL/min/1.73m2); Glucose 113 mg/dL (74-106); Potassium 3.3 mmol/L (3.5-5.1); Sodium 141 mmol/L (136-145)
[2022-08-25 07:43] VITALS: BP 119/79; PULSE 80; TEMP 36; O2SAT 93
[2022-08-25 07:45] LABS: Anisocytosis 2+; Diff Comment RBC Morph Reviewed
[2022-08-25] MEDS: traMADol 50 MG TAB 100 MG PO ×3 (08:39→20:19)
[2022-08-25] MEDS: Acetaminophen 500 MG TAB 1000 MG PO ×3 (08:39→20:18)
[2022-08-25] MEDS: Gabapentin 300 MG CAP 900 MG PO ×2 (08:41→20:19)
[2022-08-25] MEDS: Methocarbamol 750 MG TAB 1500 MG PO ×4 (08:41→20:20)
[2022-08-25] MEDS: Cholecalciferol (Vitamin D3) 1,000 UNIT TAB 2000 UNITS PO (08:42)
[2022-08-25] MEDS: guaiFENesin 600 MG TABCR PO ×2 (08:42→20:18)
[2022-08-25] MEDS: Spironolactone 25 MG TAB PO (08:42)
[2022-08-25] MEDS: buPROPion-XL 150 MG TABCR PO (08:43)
[2022-08-25] MEDS: Escitalopram 20 MG TAB PO (08:43)
[2022-08-25] MEDS: Docusate Sodium 100 MG CAP PO ×2 (08:43→20:19)
[2022-08-25] MEDS: Senna TAB 1 TAB PO ×2 (08:43→20:20)
[2022-08-25] MEDS: Psyllium PKT 1 EACH PO ×2 (08:44→21:35)
[2022-08-25] MEDS: Lidocaine 5% Patch 3 PATCH TP (08:44)
[2022-08-25] MEDS: Tamsulosin 0.4 MG CAPCR PO (08:44)
[2022-08-25] MEDS: Polyethylene Glycol 3350 17 GM PACKET PO ×2 (08:44→21:35)
[2022-08-25] MEDS: Doxycycline Hyclate 100 MG CAP PO ×2 (08:44→20:18)
[2022-08-25] MEDS: Finasteride 5 MG TAB PO (08:44)
[2022-08-25] MEDS: Normal Saline Flush 10 ML SYR IVP (08:46)
--- NOTE | 2022-08-25 09:04 | W.PM.PROGNOT ---
Date of Service Date of service: 08/25/22 Time of Service: 09:04 Assessment and Plan Assessment and plan (1) Abdominal distention: Status: Acute Assessment and plan: I talked for a while with Cosmo and his daughter on the telephone about how he is progressing. Again, I reiterated that I do not see signs of bowel obstruction, and I think this is more of a functional problem of colonic transit. We can try some erythromycin today to see if that helps stimulate motility, although targeting the large bowel in particular tends to be problematic. I would keep with the aggressive bowel regimen that he is already on. We talked again about the role of neostigmine. I told him if his discomfort continues to increase, that it may be our only option. I also think there is probably a role for bladder decompression here since the bladder is quite distended on his CAT scan. At the very least, it may help differentiate discomfort associated with the colon from other pain he may be having from bladder distention. Subjective Subjective Interval history since last seen: Cosmo says he is having a little bit of increased abdominal discomfort overnight, with some pain in the suprapubic region, and slightly towards the right flank. He is tolerating liquids, and even some food without any nausea or vomiting, but he says he does not have much appetite. However, he also says that he noticed the bruising on the right side of his groin for the first time in the past day, suggest to me that he has a little bit less distention, and slightly improved mobility with his ability to see here. Exam GI Other: His abdomen remains very distended, I do think he is a little softer than the other day. He is not particularly tender on my exam. Objective Last Vital Signs Temp 96.8 F L 08/25/22 07:43 Pulse 80 08/25/22 07:43 Resp 20 08/24/22 22:47 BP 119/79 08/25/22 07:43 Pulse Ox 93 08/25/22 07:43 Laboratory Results - last 24 hr 08/21/22 08/24/22 08/25/22 15:45 07:18 06:21 WBC 8.21 RBC 4.44 Hgb 11.0 L Hct 35.9 L MCV 81 MCH 24.8 L MCHC 30.6 L RDW 20.2 H Plt Count 393 MPV 8.1 Immature Gran % 0.6 Neutrophils % 72.4 Lymphocytes % 12.1 Monocytes % 10.1 Eosinophils % 4.3 Basophils % 0.5 Nucleated RBC % 0.0 Absolute Neutrophils 5.95 Absolute Lymphocytes 0.99 L Absolute Monocytes 0.83 H Absolute Eosinophils 0.35 Absolute Basophils 0.04 RBC Morphology See Below Anisocytosis 2+ Sodium 141 Potassium 3.3 L Chloride 102 Carbon Dioxide 29.3 Anion Gap 9.7 BUN 13 Creatinine 0.9 Est GFR (CKD-EPI 2020) 90.18 Glucose 113 H Calcium 9.0 Magnesium 2.0 Ur Strep pneumoniae Ag Negative 08/25/22 06:21 WBC 8.28 RBC 4.35 L Hgb 10.9 L Hct 35.2 L MCV 81 MCH 25.1 L MCHC 31.0 L RDW 20.1 H Plt Count 397 MPV 8.0 Immature Gran % 0.4 Neutrophils % 73.1 Lymphocytes % 13.3 Monocytes % 9.7 Eosinophils % 3.1 Basophils % 0.4 Nucleated RBC % 0.0 Absolute Neutrophils 6.06 Absolute Lymphocytes 1.10 L Absolute Monocytes 0.80 Absolute Eosinophils 0.26 Absolute Basophils 0.03 RBC Morphology See Below Anisocytosis 2+ Sodium Potassium Chloride Carbon Dioxide Anion Gap BUN Creatinine Est GFR (CKD-EPI 2020) Glucose Calcium Magnesium Ur Strep pneumoniae Ag Time Spent with Patient Time Spent with Patient: 25-34 minutes Time was spent: preparing to see the patient(eg.review tests), referring, communicating with other health certified social workers in health care and counseling the patient
--- NOTE | 2022-08-25 09:42 | PT.INNT ---
PT Notes Visit Reasons: Acute on Chronic Back Pain,DJD,Ambulatory Dysfunca Pt refused PT x 2 today. Pt is experiencing a lot of discomfort today with his back and legs.
[2022-08-25] MEDS: Lidocaine 2% Jelly 11 ML SYR UR (10:57)
--- NOTE | 2022-08-25 13:46 | PGE_ITS ---
Date of Service Date of service: 08/25/22 Time of Service: 13:53 Assessment and Plan Assessment and plan (1) Abdominal distention: Status: Acute Assessment and plan: Ogelvie's/pseudoobstruction of the colon. S/p one large BM, but still not at baseline. The distended abdomen is making it difficult for the patient to self- catheterize. Continue scheduled bowel regimen. Dr Sierra following. Continue to avoid opioids. Continue regimen of gabapentin, tylenol, ultram; schedule ultram. Salmon catheter placed to see if bladder distension is partially the etiology of some abd discomfort. Also started erythromycin in attempt to stimulate bowel activity / decompression. Dr Sierra has mentioned possible use of neostigime injection for bowel decompression. Will consider this tomorrow if not improving. (2) Cellulitis of left knee: Status: Acute Assessment and plan: Overall improving. Continue ceftriaxone. MRSA negative. Blood cultures negative. (3) UTI (urinary tract infection): Status: Acute Assessment and plan: In setting of chronic urinary retention/neurogenic bladder, present on admission. Self-catheterizes, but this is difficult with his very distended abdomen currently. Urine C&S w/ Two different species of morganella. Both are sensitive to ceftriaxone. Continue ceftriaxone for now, but should be able to be switched to PO cefpodoxime on discharge. (4) Chronic diastolic CHF (congestive heart failure): Status: Chronic Assessment and plan: Back to baseline. Continue outpatient diuretics. (5) Chronic low back pain: Status: Chronic Assessment and plan: Pain was noted controlled on 07/25 on scheduled tylenol, gabapentin, tramadol. Today, however, c/o less control. Would need a new rx for tramadol on discharge. Continue PT. (6) Cough: Status: Resolved Assessment and plan: CXR w/o PNA, but could clinically have bronchitis. Continue abx and diuretics. Encourage pulmonary toilet. (7) Ambulatory dysfunction: Status: Acute Assessment and plan: Continue working with PT. (8) Incomplete emptying of bladder: Status: Chronic Assessment and plan: Salmon catheter placed today to see if keeping the bladder from over-filling helps with his pain control. Abdominal distention making self-catheterization difficult. (9) Urinary retention: Status: Chronic Assessment and plan: as above (10) BPH (benign prostatic hyperplasia): Assessment and plan: continue Proscar and Tamsulosin (11) Weakness: Status: Acute Assessment and plan: PT following (12) Patellar instability of right knee: Status: Acute Assessment and plan: XR stable. Continue working with PT. (13) Traumatic rupture of right quadriceps tendon: Status: Acute Assessment and plan: F/u as outpatient (14) Infected hardware in right leg: Status: Acute Assessment and plan: Continue chronic suppressive doxycycline. Follows w/Dr. Servando Trejo, [facility] [place] and ortho @ [facility] [place], Dr. Loja (15) Lumbar spinal stenosis: Status: Acute Assessment and plan: As above. Qualifiers: Neurogenic claudication status: with neurogenic claudication Qualified Code(s): M48.062 - Spinal stenosis, lumbar region with neurogenic claudication (16) Chronic atrial fibrillation: Status: Chronic Assessment and plan: Rate controlled, not on anticoagulation due to h/o GI bleeding. (17) Restless leg syndrome: Status: Chronic Assessment and plan: continue mirapex (18) Depression with anxiety: Status: Chronic Assessment and plan: continue Wellbutrin and Lexapro (19) Obstructive sleep apnea: Status: Chronic Assessment and plan: continue home CPAP (20) Anemia: Status: Chronic Assessment and plan: H/H is stable. F/u as outpatient. (21) DVT prophylaxis: Status: Acute Assessment and plan: SCDs. Abstain from chemical DVT ppx due to h/o GI bleeding (22) Discharge planning issues: Status: Acute Assessment and plan: Full code Continues to require hospitalization Subjective Subjective Patient reports: still having pain (Back and abd.) and afebrile; denies diarrhea, vomiting or shortness of breath Interval history since last seen: C/O numbness into both legs (down to ankles) while sitting. Resolved when went back to bed. He has successfully self-catheterized but stated it is more difficult d/t increased abd distension. Exam Narrative Exam Narrative: General: He is sitting up in a chair. No acute distress. HEENT: Sclera clear MMM Heart: RRR, no murmur Lungs: CTAB Abdomen: distended / firm. NT. Extremities: trace edema BLEs, no calf tenderness, L knee dressed, chronic venous stasis dermatitis Objective Last Vital Signs Temp 36.0 C L 08/25/22 07:43 Pulse 80 08/25/22 07:43 Resp 20 08/24/22 22:47 BP 119/79 08/25/22 07:43 Pulse Ox 93 08/25/22 07:43 Laboratory Results - last 24 hr 08/25/22 08/25/22 06:21 06:21 WBC 8.28 RBC 4.35 L Hgb 10.9 L Hct 35.2 L MCV 81 MCH 25.1 L MCHC 31.0 L RDW 20.1 H Plt Count 397 MPV 8.0 Immature Gran % 0.4 Neutrophils % 73.1 Lymphocytes % 13.3 Monocytes % 9.7 Eosinophils % 3.1 Basophils % 0.4 Nucleated RBC % 0.0 Absolute Neutrophils 6.06 Absolute Lymphocytes 1.10 L Absolute Monocytes 0.80 Absolute Eosinophils 0.26 Absolute Basophils 0.03 RBC Morphology See Below Anisocytosis 2+ Sodium 141 Potassium 3.3 L Chloride 102 Carbon Dioxide 29.3 Anion Gap 9.7 BUN 13 Creatinine 0.9 Est GFR (CKD-EPI 2020) 90.18 Glucose 113 H Calcium 9.0 Magnesium 2.0 Time Spent with Patient Time Spent with Patient: 35-49 minutes Time was spent: preparing to see the patient(eg.review tests), obtaining and/or reviewing separately otained hiistory, ordering medications,tests, procedures, referring, communicating with other health hiv/aids care nurse, indepentently interpreting results and counseling the patient
[2022-08-25 15:06] VITALS: BP 138/87; PULSE 88; TEMP 36.6; O2SAT 97
[2022-08-25] MEDS: Celecoxib 200 MG CAP PO (16:39)
[2022-08-25] MEDS: fentaNYL 100 MCG/2 ML VIAL 50 MCG IVP (18:44)
[2022-08-25] MEDS: Potassium Chloride 20 MEQ TABCR PO (18:45)
[2022-08-25] MEDS: Pramipexole 0.5 MG TAB 2 MG PO (20:17)
[2022-08-25] MEDS: cefTRIAXone 2 GM/50 ML BAG IVPB (20:17)
[2022-08-25] MEDS: Magnesium Oxide 400 MG TAB PO (20:18)
[2022-08-25] MEDS: Lactobacillus Acidophilus CAP 1 CAP PO (20:20)
[2022-08-25 23:21] VITALS: BP 138/87; PULSE 68; RESP 22; TEMP 36.1; O2SAT 97
[2022-08-26] MEDS: traMADol 50 MG TAB PO (04:07)
[2022-08-26] MEDS: Furosemide 40 MG TAB 80 MG PO ×2 (06:06→11:48)
[2022-08-26] MEDS: Carbidopa 25/Levodopa 100 TAB PO ×3 (06:08→17:53)
[2022-08-26 06:19] VITALS: BP 137/99; PULSE 80; RESP 20; TEMP 37; O2SAT 95
[2022-08-26] MEDS: Psyllium PKT 1 EACH PO ×2 (07:53→20:02)
[2022-08-26] MEDS: Docusate Sodium 100 MG CAP PO ×2 (07:53→20:02)
[2022-08-26] MEDS: Cholecalciferol (Vitamin D3) 1,000 UNIT TAB 2000 UNITS PO (07:53)
[2022-08-26] MEDS: Polyethylene Glycol 3350 17 GM PACKET PO ×2 (07:53→20:02)
[2022-08-26] MEDS: Gabapentin 300 MG CAP 900 MG PO ×2 (07:53→20:02)
[2022-08-26] MEDS: Finasteride 5 MG TAB PO (07:53)
[2022-08-26] MEDS: Methocarbamol 750 MG TAB 1500 MG PO ×4 (07:54→20:02)
[2022-08-26] MEDS: Tamsulosin 0.4 MG CAPCR PO (07:54)
[2022-08-26] MEDS: Spironolactone 25 MG TAB PO (07:54)
[2022-08-26] MEDS: buPROPion-XL 150 MG TABCR PO (07:54)
[2022-08-26] MEDS: traMADol 50 MG TAB 100 MG PO ×3 (07:54→20:02)
[2022-08-26] MEDS: Escitalopram 20 MG TAB PO (07:54)
[2022-08-26] MEDS: Doxycycline Hyclate 100 MG CAP PO ×2 (07:54→20:02)
[2022-08-26] MEDS: Pantoprazole 40 MG TABCR PO ×2 (07:54→20:01)
[2022-08-26] MEDS: guaiFENesin 600 MG TABCR PO ×2 (07:54→20:02)
[2022-08-26] MEDS: Senna TAB 1 TAB PO ×2 (07:54→20:02)
[2022-08-26] MEDS: Acetaminophen 500 MG TAB 1000 MG PO ×3 (07:55→20:01)
[2022-08-26] MEDS: Diclofenac 1% Gel 100 GM TUBE TP ×4 (09:48→21:38)
[2022-08-26] MEDS: Lidocaine 5% Patch 3 PATCH TP (09:48)
--- NOTE | 2022-08-26 10:41 | PT.INNT ---
PT Notes Visit Reasons: Acute on Chronic Back Pain,DJD,Ambulatory Dysfunca Checked in with pt x 2 first time he was heading down for a shower and second time nursing reports he is in a lot of pain and would like him to be on hold with PT today.
[2022-08-26 11:06] VITALS: BP 123/85; PULSE 71; TEMP 35.7; O2SAT 96
--- NOTE | 2022-08-26 13:19 | W.PM.PROGNOT ---
Date of Service Date of service: 08/26/22 Time of Service: 13:19 Assessment and Plan Assessment and plan (1) Abdominal distention: Status: Acute Assessment and plan: We will try a dose of neostigmine today to see if that can help stimulate the passage of some more flatus and evacuation of gas. Again, I encouraged him to avoid opioid medications as much as possible, as these can significantly slow colonic transit. Subjective Subjective Interval history since last seen: Cosmo tells me that he had pain that radiated [id number] from his left leg to the right leg and back to the left leg overnight. Otherwise, there were no other interval changes. He tells me that he is passed a little bit of gas this morning, but feels quite uncomfortable as it relates to his abdominal distention. He denies any nausea or vomiting. In fact, he is hungry and asking for a cheeseburger. Exam GI Other: His abdomen remains very distended. It does seem a bit softer than yesterday. He is not tender. Objective Last Vital Signs Temp 96.3 F L 08/26/22 11:06 Pulse 71 08/26/22 11:06 Resp 20 08/26/22 06:19 BP 123/85 08/26/22 11:06 Pulse Ox 96 08/26/22 11:06 Time Spent with Patient Time Spent with Patient: <25 minutes Time was spent: preparing to see the patient(eg.review tests) and counseling the patient
--- NOTE | 2022-08-26 14:45 | PGE_ITS ---
Date of Service Date of service: 08/26/22 Time of Service: 14:45 Assessment and Plan Assessment and plan (1) Abdominal distention: Status: Acute Assessment and plan: Ogelvie's/pseudoobstruction of the colon. S/p one large BM, but only scant amounts since. The distended abdomen is making it difficult for the patient to self- catheterize. Continue scheduled bowel regimen. Dr Sierra following. Continue to avoid opioids. Continue regimen of gabapentin, tylenol, ultram; schedule ultram. Salmon catheter placed to see if bladder distension is partially the etiology of some abd discomfort. Previous note stated erythromycin initiated. Correction; not initiated. Neostigmine administered today w/o any significant effect. Consider repeating in AM. (2) Cellulitis of left knee: Status: Acute Assessment and plan: Overall improving. Continue ceftriaxone. MRSA negative. Blood cultures negative. Home on oral antibiotic. (3) UTI (urinary tract infection): Status: Acute Assessment and plan: In setting of chronic urinary retention/neurogenic bladder, present on admission. Self-catheterizes, but this is difficult with his very distended abdomen currently. Urine C&S w/ Two different species of morganella. Both are sensitive to ceftriaxone. Continue ceftriaxone for now, but should be able to be switched to PO cefpodoxime on discharge. (4) Chronic diastolic CHF (congestive heart failure): Status: Chronic Assessment and plan: Back to baseline. Continue outpatient diuretics. (5) Chronic low back pain: Status: Chronic Assessment and plan: Pain was noted controlled on 07/25 on scheduled tylenol, gabapentin, tramadol. Today, however, c/o less control. Would need a new rx for tramadol on discharge. Continue PT. (6) Cough: Status: Resolved Assessment and plan: CXR w/o PNA, but could clinically have bronchitis. Improved. Continue abx and diuretics. Encourage pulmonary toilet. (7) Ambulatory dysfunction: Status: Acute Assessment and plan: Continue working with PT. (8) Incomplete emptying of bladder: Status: Chronic Assessment and plan: Salmon catheter placed today to see if keeping the bladder from over-filling helps with his pain control. Abdominal distention making self-catheterization difficult. (9) Urinary retention: Status: Chronic Assessment and plan: as above (10) BPH (benign prostatic hyperplasia): Assessment and plan: continue Proscar and Tamsulosin (11) Weakness: Status: Acute Assessment and plan: PT following (12) Patellar instability of right knee: Status: Acute Assessment and plan: XR stable. Continue working with PT. (13) Traumatic rupture of right quadriceps tendon: Status: Acute Assessment and plan: F/u as outpatient (14) Infected hardware in right leg: Status: Acute Assessment and plan: Continue chronic suppressive doxycycline. Follows w/Dr. Servando Trejo, [facility] and ortho @ [facility], Dr. Loja (15) Lumbar spinal stenosis: Status: Acute Assessment and plan: As above. Qualifiers: Neurogenic claudication status: with neurogenic claudication Qualified Code(s): M48.062 - Spinal stenosis, lumbar region with neurogenic claudication (16) Chronic atrial fibrillation: Status: Chronic Assessment and plan: Rate controlled, not on anticoagulation due to h/o GI bleeding. (17) Restless leg syndrome: Status: Chronic Assessment and plan: continue mirapex (18) Depression with anxiety: Status: Chronic Assessment and plan: continue Wellbutrin and Lexapro (19) Obstructive sleep apnea: Status: Chronic Assessment and plan: continue home CPAP (20) Anemia: Status: Chronic Assessment and plan: H/H is stable. F/u as outpatient. (21) DVT prophylaxis: Status: Acute Assessment and plan: SCDs. Abstain from chemical DVT ppx due to h/o GI bleeding (22) Discharge planning issues: Status: Acute Assessment and plan: Full code Given his significant medical problems, will consult palliative. Continues to require hospitalization Subjective Subjective Patient reports: pain is less, bowel movement (scant amount) and afebrile; denies nausea, vomiting or shortness of breath Interval history since last seen: Intermittently having discomfort in back with radiation into a leg, accompanied by numb sensation of the affected extremity. Exam Narrative Exam Narrative: General: He is sitting up in a chair. No acute distress. HEENT: Sclera clear MMM Heart: RRR, no murmur Lungs: CTAB Abdomen: distended but more soft than yesterday. NT. Extremities: trace edema BLEs, no calf tenderness, L knee dressed, chronic venous stasis dermatitis Objective Last Vital Signs Temp 35.7 C L 08/26/22 11:06 Pulse 71 08/26/22 11:06 Resp 20 08/26/22 06:19 BP 123/85 08/26/22 11:06 Pulse Ox 96 08/26/22 11:06 Time Spent with Patient Time Spent with Patient: 35-49 minutes Time was spent: preparing to see the patient(eg.review tests), obtaining and/or reviewing separately otained hiistory, ordering medications,tests, procedures, referring, communicating with other health critical care rn, counseling the patient and care coordination
[2022-08-26 14:59] VITALS: PULSE 75
[2022-08-26 15:10] VITALS: BP 102/70; PULSE 102; TEMP 36.8; O2SAT 98
[2022-08-26] MEDS: Naproxen 500 MG TAB PO (20:01)
[2022-08-26] MEDS: Pramipexole 0.5 MG TAB 2 MG PO (20:01)
[2022-08-26] MEDS: Magnesium Oxide 400 MG TAB PO (20:01)
[2022-08-26] MEDS: Lactobacillus Acidophilus CAP 1 CAP PO (20:01)
[2022-08-26] MEDS: cefTRIAXone 2 GM/50 ML BAG IVPB (20:03)
[2022-08-26 23:34] VITALS: PULSE 80
--- NOTE | 2022-08-27 | DI.RAD_ITS ---
Exam(s) XR ABDOMEN FLAT PLATE EXAM: XR ABDOMEN FLAT PLATE CLINICAL HISTORY: distended bowel, constipation. TECHNIQUE: 2D digital imaging was performed. COMPARISON: CR,XR XR ABDOMEN FLAT UPRIGHT from 08/22/[address] ABDOMEN PELVIS W from 08/23/2022 FINDINGS: Abundant fecal material is again noted seen in the right-side of the colon. Remainder is air-filled and mildly distended Fusion hardware in lumbar spine again noted. IMPRESSION: Abundant fecal material in the right-side of the colon. DATA REPOSITORY: RADIATION DOSE DELIVERED:
[2022-08-27] MEDS: Carbidopa 25/Levodopa 100 TAB PO ×3 (06:31→18:10)
[2022-08-27] MEDS: Furosemide 40 MG TAB 80 MG PO ×2 (06:32→11:40)
[2022-08-27 07:00] VITALS: PULSE 84
[2022-08-27 07:15] VITALS: BP 126/88; PULSE 72; RESP 18; TEMP 36.4; O2SAT 97
[2022-08-27 07:16] LABS: Abs Immature Grans 0.04 10^3/uL (0.0-0.06); Absolute Basophil Count 0.04 10^3/uL (0.0-0.2); Absolute Lymphocyte Count 1.16 10^3/uL (1.2-3.4); Absolute Monocyte Count 0.71 10^3/uL (0.1-0.8); Absolute Neutrophil Count 5.66 10^3/uL (1.2-6.7); Basophils % 0.5; Eosinophils % 3.8; HCT 35.1 % (40.0-50.0); HGB 10.8 g/dL (13.5-17.5); Immature Grans % 0.5; Lymphocytes % 14.7; MCH 25.1 pg (27.0-33.0); MCHC 30.8 % (32.0-36.0); MCV 81 fL (80-95); MPV 7.9 fL (8.0-11.0); Neutrophils % 71.5; Platelet Count 419 10^3/uL (130-400); RBC 4.31 10^6/uL (4.36-5.78); RDW-SD 59.8 fL; WBC 7.91 10^3/uL (4.4-10.8)
[2022-08-27 07:31] LABS: Anion Gap 8.2 mmol/L (3-11); BUN 15 mg/dL (7-18); CO2 30.8 mmol/L (21.0-32.0); CREATININE 0.9 mg/dL (0.70-1.30); Calcium 9.3 mg/dL (8.5-10.1); Chloride 102 mmol/L (98-107); Estimated GFR 90.18 (mL/min/1.73m2); Glucose 105 mg/dL (74-106); Sodium 141 mmol/L (136-145)
[2022-08-27] MEDS: Psyllium PKT 1 EACH PO ×2 (07:48→20:45)
[2022-08-27] MEDS: Polyethylene Glycol 3350 17 GM PACKET PO ×2 (07:48→20:45)
[2022-08-27] MEDS: Diclofenac 1% Gel 100 GM TUBE TP ×4 (07:48→23:22)
[2022-08-27] MEDS: Lidocaine 5% Patch 3 PATCH TP (07:48)
[2022-08-27] MEDS: Tamsulosin 0.4 MG CAPCR PO (07:49)
[2022-08-27] MEDS: traMADol 50 MG TAB 100 MG PO ×3 (07:49→20:45)
[2022-08-27] MEDS: Doxycycline Hyclate 100 MG CAP PO ×2 (07:49→20:44)
[2022-08-27] MEDS: Gabapentin 300 MG CAP 900 MG PO ×2 (07:49→20:44)
[2022-08-27] MEDS: buPROPion-XL 150 MG TABCR PO (07:49)
[2022-08-27] MEDS: Docusate Sodium 100 MG CAP PO ×2 (07:50→20:45)
[2022-08-27] MEDS: Pantoprazole 40 MG TABCR PO ×2 (07:50→20:44)
[2022-08-27] MEDS: Spironolactone 25 MG TAB PO (07:50)
[2022-08-27] MEDS: Naproxen 500 MG TAB PO ×2 (07:50→20:44)
[2022-08-27] MEDS: Methocarbamol 750 MG TAB 1500 MG PO ×4 (07:50→20:44)
[2022-08-27] MEDS: Finasteride 5 MG TAB PO (07:50)
[2022-08-27] MEDS: Cholecalciferol (Vitamin D3) 1,000 UNIT TAB 2000 UNITS PO (07:50)
[2022-08-27] MEDS: Senna TAB 1 TAB PO (07:50)
[2022-08-27] MEDS: Escitalopram 20 MG TAB PO (07:50)
[2022-08-27] MEDS: guaiFENesin 600 MG TABCR PO ×2 (07:50→20:44)
[2022-08-27] MEDS: Acetaminophen 500 MG TAB 1000 MG PO ×3 (07:50→20:44)
--- NOTE | 2022-08-27 08:22 | PDOC.CMPRO ---
Date of service: 08/27/22 Time of Service: 08:22 Care Management Progress Note Progress Note Text Progress Note Text: S/O: Cosmo was sitting up in a chair when CM met with him. He was non-committal when asked how he was doing. CM asked Cosmo if the provider had discussed his discharge with him and he and Anel stated that he had not. Anel stated that he lives alone and was not even able to walk. CM informed her that he had been working with PT and was able to walk over 100 feet on Saturday, although he refused to work with PT over the weekend secondary to pain.CM also asked if he had been told that his insurance company had denied his stay. To this Cosmo also responded no. CM explained that there is an appeal process and that the hospital was in the process of appealing the denial. Anel informed CM that Cosmo was willing to go to a SNF for short term rehab and asked if CM could send referrals. CM sent referrals to [facility], [facility] and [facility]. At the end of the day,[facility] called and made a bed offer, pending prior authorization approval. Cosmo and Anel accepted the bed offer. A: Cosmo is a 72 year old man admitted on 08/19/22 with back pain and a UTI P: Anticipate Cosmo will transfer to [facility] when prior authorization approval is received from his insurance company. He will transport via facility wheelchair van and follow up with facility providers and plan of care. CM will follow and continue to support discharge planning needs.
[2022-08-27] MEDS: Normal Saline Flush 10 ML SYR IVP ×2 (09:40→16:29)
[2022-08-27 11:17] VITALS: BP 102/70; PULSE 71; RESP 16; TEMP 36.5; O2SAT 97
[2022-08-27] MEDS: Lactulose 20 GM/30 ML CUP 30 GM PO (11:40)
[2022-08-27 15:30] VITALS: BP 120/80; PULSE 72; RESP 17; TEMP 36.7; O2SAT 97
--- NOTE | 2022-08-27 16:00 | PT.INTREAT ---
Date of service: 08/27/22 Time of Service: 14:20 PT Notes Visit Reasons: Acute on Chronic Back Pain,DJD,Ambulatory Dysfunca Inpatient Physical Therapy Treatment Note [facility] Date: 08/27/22 PRECAUTIONS: Fall, standard, activity as tolerated. SUBJECTIVE: Patient sitting up in chair, daughter on phone, female visitor also present. OBJECTIVE: PAIN: Right knee BED MOBILITY/TRANSFERS Sit-stand: standby Stand-sit: standby Bed-Chair: standby Chair-bed: standby GAIT Assistive Device: rollator Weight bearing: full Assist: standby Distance: 200 feet Deviation: antalgic gait pattern favoring right leg, decreased jason, decreased step height, decreased step length, patient becomes short of breath with exertion. No LOB. STAIRS: Ascends and descends 3 stairs with single railing. ASSESSMENT: Patient appears to tolerate therapy well, has misgivings about his ability to manage at home. PLAN: Continue global strengthening per plan of care, putting particular emphasis on stairs, until patient is medically cleared to return home or receives placement in a SNF. TREATMENT CODE/TIME: 33041 Gait 33 minutes, 72113 Ther Act 16 minutes beginning at 14:20
--- NOTE | 2022-08-27 16:12 | INPN_ITS ---
Date of service: 08/27/22 Time of Service: 11:45 PT Notes Visit Reasons: Acute on Chronic Back Pain,DJD,Ambulatory Dysfunca Physical Therapy Inpatient [facility] Note Date: 08/27/2022 Dates of Service: 08/20/2022 through 08/27/2022 Referring Doctor: Fernando Vegas MD PT Orders: PT CONSULT: Eval/Treat Precautions: WBAT on B LE. Fall risk.? Activity as tolerated.? Patient Profile/Admitting Diagnosis: Cosmo is a 72-year-old male with multiple co-morbidities including Parkinson's disease, TBI, spinal stenosis, and cervical spondylosis, and history of R knee surgeries, s/p decompression laminectomy who came back to the ED on 08/19/2022 due to a fall out of bed.? Patient is admitted for management of cellulitis of left knee, UTI, ambulatory dysfunction, incomplete emptying of bladder, urinary retention, BPH, and generalized weakness. Subjective: States that he could not move and was weak this weekend. He was not able to participate in PT at all both Saturday and Saturday. Per Dr. Appiah, patient has had a bowel movement finally yesterday after about 9 days of not being able to. Patient requested to be seen today per Nurse David. Tied after walking about 100 feet in the hallway. Emphasized that he will not be walking too far at home. Objective: General Observation: Seated on chair. Mental Status: Alert. Responses appropriate. Able to follow single-step commands. Pain: Minimal pain in back and B legs that resolved with rest ROM: Right Lower Extremity: Hip flexion about 20 beyind 90 (while seated on bedside chair) limited by abdominal pannus. Hip abduction WFL. Knee flexion? -20 to 90 degrees. Knee extension -20 degrees. Ankle dorsiflexion to neutral. Ankle plantarflexion WFL. Left Lower Extremity: Hip flexion about 20 beyind 90(while seated on bedside chair) limited by abdominal pannus. Hip abduction WFL. Knee flexion? WFL. Knee extension WFL. Ankle dorsiflexion WFL. Ankle plantarflexion WFL. Strength: Right Lower Extremity: Hip flexors 3-/5. Hip abductors 4-/5. Knee flexors 3-/5. Knee extensors 3-/5. Ankle dorsiflexors 4-/5. Ankle plantarflexors 4-/5. Left Lower Extremity: Hip flexors 3-/5. Hip abductors 4-/5. Knee flexors 4-/5. Knee extensors 4-/5. Ankle dorsiflexors 4-/5. Ankle plantarflexors 4-/5. Sensation: Intact as to pain and pressure on bilateral lower extremities. Denies any numbness nor tingling in B LE. Bed Mobility/Transfers: Sit to stand supervision Stand to sit supervision Bed to chair supervision Gait: Instructed patient with level surface ambulation of 75 feet + 25 feet using four-wheel walker with WBAT on the right LE requiring stand by assist. Decreased knee extension in R. Reported weakness in BLE. Did not report any instability in the right knee. No path deviation. No LOB. No buckling in the right knee.? Did manifest with mild shortness of breath that resolved with rest. Balance: Static Sitting: Normal Dynamic Sitting: Good Static Standing: Fair Dynamic Standing: Fair Special Tests: Mobility Limitations Standardized Measure [facility] 6 clicks Basic Mobility Inpatient Short Form: Raw Score: 19 CMS Score: 42% deficit Informed Consent/Education: Patient was instructed in purpose of PT consult and is agreeable to PT plan of care. Assessment:? Patient is able to manage level surface ambulation using his rollator up to 75 feet. Will make sure that stairs re-training is made today to see safety of stair management. Patient has shown improvement in functional mobility performance using his 4-wheeled walker and may need more training in SNF or at home with HHPT to increase consistency of transfer and ambulation performance to reduce fall risk. Has a flight of steps that he needs to be able to do to safely go home.? Patient presents with clinical signs and symptoms consistent with current/admitting diagnoses that have resulted to mobility limitations, gait instability, generalized weakness, and impairment of motor control as demonstrated by the following impairment level findings: 1. Weakness in B LE Impairments are contributing to the following functional limitations: 1. Inability to safely ambulate without AD 2. Increase completion time for mobility ADL performance 3. Increased fall risk 4. Inability to negotiate steps alone safely Patient is assessed as a 97812 moderate complexity based on the following: History: Cosmo is a 72-year-old male with multiple co-morbidities including Parkinson's disease, TBI, spinal stenosis, and cervical spondylosis, and history of R knee surgeries, s/p decompression laminectomy who came back to the ED on 08/19/2022 due to a fall out of bed.? Patient is admitted for management of cellulitis of left knee, UTI, ambulatory dysfunction, incomplete emptying of bladder, urinary retention, BPH, and generalized weakness. Examination: Demonstrable impairment in mobility level with underlying impairments and functional limitations as documented above Presentation: Evolving Decision Makin moderate complexity Goals: Goals X1 week 1. Supine-Sit independent MET 2. Sit-Supine independent MET 3. Sit-Stand independent NOT MET, CONTINUE 4. Stand-Sit independent NOT MET, CONTINUE 5. Bed-Chair independent NOT MET, CONTINUE 6. Chair-Bed independent NOT MET, CONTINUE 7. Independent gait on level surface with use of least restrictive device for at least 300 feet without report of pain nor dyspnea NOT MET, CONTINUE 8. Independent stair negotiation while holding onto bilateral rails for at least 12 steps without report of pain nor dyspnea NOT MET, CONTINUE 9. Independent with home exercise program NOT MET, CONTINUE 10. Good static and dynamic standing balance/tolerance NOT MET, CONTINUE Plan of Care/Treatment Plan: 1-2x/day for 2 weeks. Plan of care has been reviewed with the COMBINATION MACHINE TENDER providing the service under Physical Therapy direction. Progress mobility level using 4WW to reduce fall risk at home. DISCHARGE RECOMMENDATIONS: [] ? Home with no services [] [] ? Home with services [] [] ? Home with outpatient PT [] [] ? SNF for continued rehabilitation [] [] ? Longterm Care [] [] ? SNF versus LTC based on ability to participate and progress [] [X]? PT vs.? SNF based on ability to progress towards goals TREATMENT CODE/TIME:? 12306 x 15 minutes beginning at 11:45 AM. Thank you for the opportunity to participate in the care of this patient. Yary Warner PT, DPT, CLT [facility] [place], [place]
--- NOTE | 2022-08-27 16:45 | PGE_ITS ---
Date of Service Date of service: 08/27/22 Time of Service: 16:46 Assessment and Plan Assessment and plan (1) Abdominal distention: Status: Acute Assessment and plan: Ogelvie's/pseudoobstruction of the colon. Now s/p 2 doses of neostigime 2mg IV and a dose of lactulose; had a large BM The distended abdomen is making it difficult for the patient to self- catheterize. Continue scheduled bowel regimen. Continue to avoid opioids. Continue regimen of gabapentin, tylenol, ultram; schedule ultram. Vicente catheter placed to see if bladder distension is partially the etiology of some abd discomfort. He is undecided about keeping the catheter in vs returning to self-catheterization that has become more difficult for him. Previous note stated erythromycin initiated. Correction; not initiated. (2) Cellulitis of left knee: Status: Acute Assessment and plan: Overall improving. Continue ceftriaxone. MRSA negative. Blood cultures negative. Home on oral antibiotic. The involved knee (L) is the weight bearing knee he uses to get up his flight of stairs at home. The Right is chronically weak from previous surgeries and current joint infection (has spacer). (3) UTI (urinary tract infection): Status: Acute Assessment and plan: In setting of chronic urinary retention/neurogenic bladder, present on admission. Self-catheterizes, but this is difficult with his very distended abdomen currently. Urine C&S w/ Two different species of morganella. Both are sensitive to ceftriaxone. Continue ceftriaxone for now, but should be able to be switched to PO cefpodoxime on discharge. Now has vicente catheter in place. (4) Chronic diastolic CHF (congestive heart failure): Status: Chronic Assessment and plan: Back to baseline. Continue outpatient diuretics. (5) Chronic low back pain: Status: Chronic Assessment and plan: Pain was noted controlled on 07/25 on scheduled tylenol, gabapentin, tramadol. Back pain control improved. Would need a new rx for tramadol on discharge. Continue PT. (6) Cough: Status: Resolved Assessment and plan: CXR w/o PNA, but could clinically have bronchitis. Improved. Continue abx and diuretics. Encourage pulmonary toilet. (7) Ambulatory dysfunction: Status: Acute Assessment and plan: Continue working with PT. Secondary to (8) Incomplete emptying of bladder: Status: Chronic Assessment and plan: Vicente catheter placed today to see if keeping the bladder from over-filling helps with his pain control. Abdominal distention making self-catheterization difficult. (9) Urinary retention: Status: Chronic Assessment and plan: as above (10) BPH (benign prostatic hyperplasia): Assessment and plan: continue Proscar and Tamsulosin (11) Weakness: Status: Acute Assessment and plan: PT following (12) Patellar instability of right knee: Status: Acute Assessment and plan: XR stable. Continue working with PT. (13) Traumatic rupture of right quadriceps tendon: Status: Acute Assessment and plan: F/u as outpatient (14) Infected hardware in right leg: Status: Acute Assessment and plan: Continue chronic suppressive doxycycline. Follows w/Dr. Servando Trejo, [facility] [facility] and ortho @ [facility], Dr. Loja (15) Lumbar spinal stenosis: Status: Acute Assessment and plan: As above. Qualifiers: Neurogenic claudication status: with neurogenic claudication Qualified Code(s): M48.062 - Spinal stenosis, lumbar region with neurogenic claudication (16) Chronic atrial fibrillation: Status: Chronic Assessment and plan: Rate controlled, not on anticoagulation due to h/o GI bleeding. (17) Restless leg syndrome: Status: Chronic Assessment and plan: continue mirapex (18) Depression with anxiety: Status: Chronic Assessment and plan: continue Wellbutrin and Lexapro (19) Obstructive sleep apnea: Status: Chronic Assessment and plan: continue home CPAP (20) Anemia: Status: Chronic Assessment and plan: H/H is stable. F/u as outpatient. (21) DVT prophylaxis: Status: Acute Assessment and plan: SCDs. Abstain from chemical DVT ppx due to h/o GI bleeding (22) Discharge planning issues: Status: Acute Assessment and plan: Full code Given his significant medical problems, will consult palliative. His Medicare denied this stay but Medicaid prior authorization pending to cover a SNF stay. Subjective Subjective Patient reports: no new complaints, feels better, pain is less (Left knee.) and bowel movement (Large BM after neostigmine at same time he received lactulose); denies nausea or vomiting Exam Narrative Exam Narrative: General: He is sitting up in a chair. No acute distress. HEENT: Sclera clear MMM Heart: RRR, no murmur Lungs: CTAB Abdomen: distended but more soft than yesterday. NT. Extremities: trace edema BLEs, no calf tenderness, L knee dressed, chronic venous stasis dermatitis. R knee with chronic swelling. Objective Last Vital Signs Temp 36.7 C 08/27/22 15:30 Pulse 72 08/27/22 15:30 Resp 17 08/27/22 15:30 BP 120/80 08/27/22 15:30 Pulse Ox 97 08/27/22 15:30 Laboratory Results - last 24 hr 08/27/22 08/27/22 06:15 06:15 WBC 7.91 RBC 4.31 L Hgb 10.8 L Hct 35.1 L MCV 81 MCH 25.1 L MCHC 30.8 L RDW 20.0 H Plt Count 419 H MPV 7.9 L Immature Gran % 0.5 Neutrophils % 71.5 Lymphocytes % 14.7 Monocytes % 9.0 Eosinophils % 3.8 Basophils % 0.5 Nucleated RBC % 0.0 Absolute Neutrophils 5.66 Absolute Lymphocytes 1.16 L Absolute Monocytes 0.71 Absolute Eosinophils 0.30 Absolute Basophils 0.04 Sodium 141 Potassium 4.0 Chloride 102 Carbon Dioxide 30.8 Anion Gap 8.2 BUN 15 Creatinine 0.9 Est GFR (CKD-EPI 2020) 90.18 Glucose 105 Calcium 9.3 Time Spent with Patient Time Spent with Patient: 35-49 minutes Time was spent: preparing to see the patient(eg.review tests), obtaining and/or reviewing separately otained hiistory, ordering medications,tests, procedures, referring, communicating with other health care program director, indepentently interpreting results, counseling the patient and care coordination
--- NOTE | 2022-08-27 16:48 | PGE_ITS ---
Date of Service Date of service: 08/27/22 Time of Service: 21:38 Assessment and Plan Assessment and plan (1) Abdominal distention: Status: Acute Assessment and plan: - Resolved. Patient having multiple bowel movements Will reevaluate at your request. (2) Acute GI bleeding: Status: Resolved (3) Ventral hernia: Status: Acute (4) Folate deficiency anemia: Status: Acute (5) Iron deficiency anemia refractory to iron therapy: Status: Acute (6) Microcytic anemia: Status: Acute (7) Diverticula of colon: Status: Acute (8) Cholelithiasis: Status: Acute (9) Chronic diastolic CHF (congestive heart failure): Status: Chronic (10) Hematuria: Status: Acute (11) Anemia: Status: Chronic (12) Obesity, morbid, BMI 40.0-49.9: Status: Acute (13) Diastolic CHF: Status: Acute (14) Small bowel obstruction: Status: Acute Subjective Subjective Interval history since last seen: Pt well know to surgical service. Extensive hx of abdoinal surgery's. He has a hx of GI bleed and SBO. Pt had a multiple BM today. Pt is not a surgical candidate and [facility]. Patient is being discharged to [facility] rehab in [facility] We will reevaluate at your request Objective Last Vital Signs Temp 36.7 C 08/27/22 15:30 Pulse 72 08/27/22 15:30 Resp 17 08/27/22 15:30 BP 120/80 08/27/22 15:30 Pulse Ox 97 08/27/22 15:30 Laboratory Results - last 24 hr 08/27/22 08/27/22 06:15 06:15 WBC 7.91 RBC 4.31 L Hgb 10.8 L Hct 35.1 L MCV 81 MCH 25.1 L MCHC 30.8 L RDW 20.0 H Plt Count 419 H MPV 7.9 L Immature Gran % 0.5 Neutrophils % 71.5 Lymphocytes % 14.7 Monocytes % 9.0 Eosinophils % 3.8 Basophils % 0.5 Nucleated RBC % 0.0 Absolute Neutrophils 5.66 Absolute Lymphocytes 1.16 L Absolute Monocytes 0.71 Absolute Eosinophils 0.30 Absolute Basophils 0.04 Sodium 141 Potassium 4.0 Chloride 102 Carbon Dioxide 30.8 Anion Gap 8.2 BUN 15 Creatinine 0.9 Est GFR (CKD-EPI 2020) 90.18 Glucose 105 Calcium 9.3 Time Spent with Patient Time Spent with Patient: <25 minutes Time was spent: preparing to see the patient(eg.review tests), obtaining and/or reviewing separately otained hiistory, referring, communicating with other health care management coordinator and care coordination
[2022-08-27 20:20] VITALS: BP 107/74; PULSE 78; RESP 18; TEMP 36.3; O2SAT 95
[2022-08-27] MEDS: Lactobacillus Acidophilus CAP 1 CAP PO (20:44)
[2022-08-27] MEDS: Magnesium Oxide 400 MG TAB PO (20:44)
[2022-08-27] MEDS: Pramipexole 0.5 MG TAB 2 MG PO (20:44)
[2022-08-27] MEDS: cefTRIAXone 2 GM/50 ML BAG IVPB (20:45)
[2022-08-28] VITALS: PULSE 77
[2022-08-28 03:48] VITALS: BP 117/81; PULSE 68; RESP 18; TEMP 36.1; O2SAT 94
[2022-08-28] MEDS: Furosemide 40 MG TAB 80 MG PO ×2 (06:22→12:11)
[2022-08-28] MEDS: Carbidopa 25/Levodopa 100 TAB PO ×3 (06:22→18:15)
[2022-08-28 07:00] VITALS: PULSE 71
[2022-08-28 07:22] VITALS: BP 122/88; PULSE 79; RESP 17; TEMP 36.1; O2SAT 96
[2022-08-28] MEDS: Senna TAB 1 TAB PO ×2 (07:40→21:00)
[2022-08-28] MEDS: Methocarbamol 750 MG TAB 1500 MG PO ×4 (07:40→21:06)
[2022-08-28] MEDS: Cholecalciferol (Vitamin D3) 1,000 UNIT TAB 2000 UNITS PO (07:40)
[2022-08-28] MEDS: Acetaminophen 500 MG TAB 1000 MG PO ×3 (07:40→20:59)
[2022-08-28] MEDS: Psyllium PKT 1 EACH PO ×2 (07:41→20:56)
[2022-08-28] MEDS: guaiFENesin 600 MG TABCR PO ×2 (07:41→21:00)
[2022-08-28] MEDS: Escitalopram 20 MG TAB PO (07:41)
[2022-08-28] MEDS: Tamsulosin 0.4 MG CAPCR PO (07:41)
[2022-08-28] MEDS: Finasteride 5 MG TAB PO (07:41)
[2022-08-28] MEDS: Gabapentin 300 MG CAP 900 MG PO ×2 (07:41→21:00)
[2022-08-28] MEDS: Pantoprazole 40 MG TABCR PO ×2 (07:41→21:00)
[2022-08-28] MEDS: Docusate Sodium 100 MG CAP PO ×2 (07:41→21:01)
[2022-08-28] MEDS: Naproxen 500 MG TAB PO ×2 (07:41→20:57)
[2022-08-28] MEDS: traMADol 50 MG TAB 100 MG PO ×3 (07:41→20:59)
[2022-08-28] MEDS: Doxycycline Hyclate 100 MG CAP PO ×2 (07:41→20:58)
[2022-08-28] MEDS: buPROPion-XL 150 MG TABCR PO (07:41)
[2022-08-28] MEDS: Spironolactone 25 MG TAB PO (07:41)
[2022-08-28] MEDS: Lidocaine 5% Patch 3 PATCH TP (07:42)
[2022-08-28] MEDS: Polyethylene Glycol 3350 17 GM PACKET PO ×2 (07:42→20:56)
[2022-08-28] MEDS: Diclofenac 1% Gel 100 GM TUBE TP ×4 (07:42→20:56)
--- NOTE | 2022-08-28 08:50 | PDOC.CMPRO ---
Date of service: 08/28/22 Time of Service: 16:00 Care Management Progress Note Progress Note Text Progress Note Text: S/O: Cosmo was sitting up in a chair when CM met with him. He continues to show slow improvement in mobility. He was able to ambulate with PT for 50 feet X2. He was only able to climb 6 stairs; 2 stairs at a time X3. Further attempts were unsuccessful as he could not raise his left leg high enough to clear the stair. Cosmo has had several BMs today and his abdomen is now less distended. He was cleared by surgery today and they signed off the case. Yesterday CM sent referrals to several SNFs. Unfortunately his insurance company denied the request for a prior authorization for rehab. An appeal was done (doctor to doctor) by Dr. Ross, but the denial was not reversed. SEAN has reached out to [facility] to see if his Medicaid benefit would cover and if they would be able to accept him with that payer source. SEAN is awaiting a response. If Medicaid is not an acceptable payer source, Cosmo will be discharged home with home health services. [facility]. Cosmo's daughter Marya contacted them yesterday and provided a notification of admission. SEAN was given the notification number by the [facility] and shared it with Madhuri in Patient Accounts. It is possible that the [facility] will cover the cost of the hospitalization. A: Cosmo is a 72 year old man admitted on 08/19/22 with back pain and a UTI P: Cosmo's insurance company, [employer], also denied the request for a rehab stay. A [id number] was done by Dr. Ross but the denial was not reversed. If his medicaid benefit will not be accepted as payer source for rehab, he will likley be discharged home with new home health services. He will follow up with his community providers and plan of care and transport with family vs RCT. CM will continue to support Cosmo and his discharge planning challenges.
[2022-08-28] MEDS: Lactulose 20 GM/30 ML CUP PO (09:46)
--- NOTE | 2022-08-28 09:47 | PTTR_ITS ---
PT Notes Visit Reasons: Acute on Chronic Back Pain,DJD,Ambulatory Dysfunca Date: 08/28/22 PRECAUTIONS: Fall, standard, activity as tolerated. SUBJECTIVE: Pt in recliner, agreed to participating with therapy, requested to passby the toilet prior to gait training. OBJECTIVE: ? PAIN: Right knee 5/10 ? BED MOBILITY/TRANSFERS? Sit-stand: standby? Stand-sit: standby ? Bed-Chair: standby ? Chair-bed: standby ? GAIT? Assistive Device: rollator? Weight bearing: full Assist: standby ? Distance:? 200'x2 ?seated rest break in between distances ? Deviation: antalgic gait pattern favoring right leg, decreased jason, decreased step height, decreased step length, patient becomes short of breath with exertion. No LOB.?Therapeutic activity: Transfer training going in and out of the toilet supervision, static standing while having assistance with per[facility]al care from [facility], good carry over with transitions from using rollator walker for chair during gait training with pt leaning AD at wall before sitting. ? ASSESSMENT:?pt tolerated activity well, assistance with donning of right knee patellar brace prior to gait training. pt reports pain stayed the same but turned into throbbing pain after gait training. pt stayed in recliner and reports that the pain has subsided after resting for awhile. PLAN: Continue global strengthening per plan of care, until patient is medically cleared to return home or receives placement in a SNF. TREATMENT CODE/TIME: 15624 Gait 15 minutes, 14844 Therapeutic Activity 10 minutes beginning at 9:20-9:45am
[2022-08-28 15:00] VITALS: PULSE 102
[2022-08-28 15:08] VITALS: BP 114/81; PULSE 63; RESP 16; TEMP 36; O2SAT 95
--- NOTE | 2022-08-28 15:09 | PT.INTREAT ---
Date of service: 08/28/22 Time of Service: 14:28 PT Notes Visit Reasons: Acute on Chronic Back Pain,DJD,Ambulatory Dysfunca Inpatient Physical Therapy Treatment Note [facility] Date: 08/28/22 PRECAUTIONS: Fall, standard, activity as tolerated SUBJECTIVE: patient sitting up in chair, agreeable to therapy OBJECTIVE: PAIN: right knee, worse with ambulation BED MOBILITY/TRANSFERS Sit-stand: Standby Stand-sit: Standby Bed-Chair: Standby Chair-bed: Standby GAIT Assistive Device: Rollator Weight bearing: full Assist: Standby Distance: 50' x2, seated rest between, 75' x1 Deviation: Patient demonstrates antalgic gait pattern favoring the right leg, stiff posture, reduced step height, reduced stride length, reduced jason. STAIRS: Patient ascends and descends 2 six inch stairs x3, seated rests between, with CGA, bilateral railings. Demonstrates step-to gait pattern leading with left leg to guard right knee. Third set of 2 stairs patient has great difficulty raising left leg high enough to clear each step. Patient c/o fatigue, knee pain, shortness of breath. ASSESSMENT: Patient has a full flight of stairs at home, which lead up to his bedroom and bathroom. There is a half bath downstairs, and patient would be able to move his bed downstairs, however the only access he has to a shower is upstairs. Patient typically showers every day or every other day. At this time it would be highly unsafe for the patient to attempt a full flight of stairs. PLAN: Continue global strengthening per plan of care TREATMENT CODE/TIME: 79598 Gait 33 minutes beginning at 14:28
--- NOTE | 2022-08-28 17:33 | PGE_ITS ---
Date of Service Date of service: 08/28/22 Time of Service: 17:36 Assessment and Plan Assessment and plan (1) Abdominal distention: Status: Acute Assessment and plan: Ogelvie's/pseudoobstruction of the colon. Now s/p 2 doses of neostigime 2mg IV and a dose of lactulose; had a large BM Now on daily lactulose along with his other bowel regimen. The distended abdomen is making it difficult for the patient to self-catheterize however d/c'd the vicente and we can assist him to see if he has issues. Continue to avoid opioids. Continue regimen of gabapentin, tylenol, ultram; sc hedule ultram. Previous note stated erythromycin initiated. Correction; not initiated. (2) Cellulitis of left knee: Status: Acute Assessment and plan: Overall improving. Continue ceftriaxone. MRSA negative. Blood cultures negative. Home on oral antibiotic. The involved knee (L) is the weight bearing knee he uses to get up his flight of stairs at home. The Right is chronically weak from previous surgeries and current joint infection (has spacer). He was unable to take more than 3 steps up on 08/27. (3) UTI (urinary tract infection): Status: Acute Assessment and plan: In setting of chronic urinary retention/neurogenic bladder, present on admission. Self-catheterizes, but this is difficult with his very distended abdomen currently. Urine C&S w/ Two different species of morganella. Both are sensitive to ceftriaxone. Continue ceftriaxone for now, but should be able to be switched to PO cefpodoxime on discharge. (4) Chronic diastolic CHF (congestive heart failure): Status: Chronic Assessment and plan: Back to baseline. Continue outpatient diuretics. (5) Chronic low back pain: Status: Chronic Assessment and plan: Pain controlled on scheduled tylenol, gabapentin, tramadol. Would need a new rx for tramadol on discharge. Continue PT. (6) Cough: Status: Resolved Assessment and plan: CXR w/o PNA, but could clinically have bronchitis. Improved. Continue abx and diuretics. Encourage pulmonary toilet. (7) Ambulatory dysfunction: Status: Acute Assessment and plan: Continue working with PT. Secondary to his chronically debilitated Right knee and with his more acute left knee area cellulitis. (8) Incomplete emptying of bladder: Status: Chronic Assessment and plan: Returning to self-catheterization. (9) Urinary retention: Status: Chronic Assessment and plan: as above (10) BPH (benign prostatic hyperplasia): Assessment and plan: continue Proscar and Tamsulosin (11) Patellar instability of right knee: Status: Acute Assessment and plan: XR stable. Continue working with PT. (12) Traumatic rupture of right quadriceps tendon: Status: Acute Assessment and plan: F/u as outpatient (13) Infected hardware in right leg: Status: Acute Assessment and plan: Continue chronic suppressive doxycycline. [place] [facility] [facility] Loja (14) Lumbar spinal stenosis: Status: Acute Assessment and plan: As above. Qualifiers: Neurogenic claudication status: with neurogenic claudication Qualified Code(s): M48.062 - Spinal stenosis, lumbar region with neurogenic claudication (15) Chronic atrial fibrillation: Status: Chronic Assessment and plan: Rate controlled, not on anticoagulation due to h/o GI bleeding. (16) Restless leg syndrome: Status: Chronic Assessment and plan: continue mirapex (17) Depression with anxiety: Status: Chronic Assessment and plan: continue Wellbutrin and Lexapro (18) Obstructive sleep apnea: Status: Chronic Assessment and plan: continue home CPAP (19) Anemia: Status: Chronic Assessment and plan: H/H is stable. F/u as outpatient. (20) DVT prophylaxis: Status: Acute Assessment and plan: SCDs. Abstain from chemical DVT ppx due to h/o GI bleeding (21) Discharge planning issues: Status: Acute Assessment and plan: Full code Given his significant medical problems, will consult palliative. His Medicare denied this stay but Medicaid prior authorization pending to cover a SNF stay; if not, home with . Subjective Subjective Patient reports: no new complaints, still having pain (left knee), bowel movement and afebrile; denies nausea, vomiting or shortness of breath Exam Narrative Exam Narrative: General: He is sitting up in a chair. No acute distress. HEENT: Sclera clear MMM Heart: RRR, no murmur Lungs: CTAB Abdomen: softly distended. NT Extremities: trace edema BLEs, no calf tenderness, L knee dressed, chronic venous stasis dermatitis. R knee with chronic swelling. Objective Last Vital Signs Temp 36.0 C L 08/28/22 15:08 Pulse 63 08/28/22 15:08 Resp 16 08/28/22 15:08 BP 114/81 08/28/22 15:08 Pulse Ox 95 08/28/22 15:08 Time Spent with Patient Time Spent with Patient: 25-34 minutes Time was spent: preparing to see the patient(eg.review tests), obtaining and/or reviewing separately otained hiistory, ordering medications,tests, procedures, referring, communicating with other health care transport nurse, indepentently interpreting results and counseling the patient
[2022-08-28] MEDS: cefTRIAXone 2 GM/50 ML BAG IVPB (20:56)
[2022-08-28] MEDS: Pramipexole 0.5 MG TAB 2 MG PO (20:58)
[2022-08-28] MEDS: Magnesium Oxide 400 MG TAB PO (20:59)
[2022-08-28] MEDS: Lactobacillus Acidophilus CAP 1 CAP PO (21:00)
[2022-08-29 01:11] VITALS: PULSE 73
[2022-08-29 03:30] VITALS: BP 103/75; PULSE 68; RESP 18; TEMP 36.3; O2SAT 96
[2022-08-29 06:27] VITALS: PULSE 75
[2022-08-29 07:43] VITALS: BP 106/73; PULSE 75; TEMP 35.7; O2SAT 95
[2022-08-29] MEDS: Polyethylene Glycol 3350 17 GM PACKET PO (07:48)
[2022-08-29] MEDS: Furosemide 40 MG TAB 80 MG PO ×2 (07:48→11:30)
[2022-08-29] MEDS: Psyllium PKT 1 EACH PO (07:48)
[2022-08-29] MEDS: Lidocaine 5% Patch 3 PATCH TP (07:48)
[2022-08-29] MEDS: Finasteride 5 MG TAB PO (07:48)
[2022-08-29] MEDS: Diclofenac 1% Gel 100 GM TUBE TP ×2 (07:48→11:30)
[2022-08-29] MEDS: Acetaminophen 500 MG TAB 1000 MG PO ×2 (07:49→13:45)
[2022-08-29] MEDS: Naproxen 500 MG TAB PO (07:49)
[2022-08-29] MEDS: Pantoprazole 40 MG TABCR PO (07:49)
[2022-08-29] MEDS: Escitalopram 20 MG TAB PO (07:49)
[2022-08-29] MEDS: guaiFENesin 600 MG TABCR PO (07:49)
[2022-08-29] MEDS: Senna TAB 1 TAB PO (07:49)
[2022-08-29] MEDS: Cholecalciferol (Vitamin D3) 1,000 UNIT TAB 2000 UNITS PO (07:49)
[2022-08-29] MEDS: Docusate Sodium 100 MG CAP PO (07:49)
[2022-08-29] MEDS: Gabapentin 300 MG CAP 900 MG PO (07:50)
[2022-08-29] MEDS: Carbidopa 25/Levodopa 100 TAB PO ×2 (07:50→11:30)
[2022-08-29] MEDS: Methocarbamol 750 MG TAB 1500 MG PO ×2 (07:50→11:30)
[2022-08-29] MEDS: Spironolactone 25 MG TAB PO (07:50)
[2022-08-29] MEDS: Tamsulosin 0.4 MG CAPCR PO (07:50)
[2022-08-29] MEDS: Doxycycline Hyclate 100 MG CAP PO (07:50)
[2022-08-29] MEDS: traMADol 50 MG TAB 100 MG PO ×2 (07:50→13:44)
[2022-08-29] MEDS: buPROPion-XL 150 MG TABCR PO (07:50)
--- NOTE | 2022-08-29 09:30 | PDOC.CMPRO ---
Date of service: 08/29/22 Time of Service: 09:30 Care Management Progress Note Progress Note Text Progress Note Text: S/O: Cosmo was sitting up in a chair when CM met with him. A: Cosmo is a 72 year old man admitted on 08/19/22 with back pain and a UTI P: Cosmo's insurance company, [employer], also denied the request for a rehab stay. A [id number] was done by Dr. Ross but the denial was not reversed. If his medicaid benefit will not be accepted as payer source for rehab, he will likley be discharged home with new home health services. He will follow up with his community providers and plan of care and transport with family vs RCT. CM will continue to support Cosmo and his discharge planning challenges.
--- NOTE | 2022-08-29 10:31 | PTTR_ITS ---
Date of service: 08/29/22 Time of Service: 09:50 PT Notes Visit Reasons: Acute on Chronic Back Pain,DJD,Ambulatory Dysfunca Inpatient Physical Therapy Treatment Note [facility] Date: 08/29/22 PRECAUTIONS: Fall, standard, activity as tolerated SUBJECTIVE: Patient sitting up in chair, agreeable to therapy. OBJECTIVE: PAIN: 5/10 at start of therapy, 8/10 after stairs. RN notified. BED MOBILITY/TRANSFERS Rolling L/R: independent Supine-sit: independent Sit-supine: independent Sit-stand: standby Stand-sit: standby Bed-Chair: standby Chair-bed: standby GAIT Assistive Device: Rollator Weight bearing: full Assist: Standby, wheelchair follow Distance: 75 feet x2 with seated rest between Deviation: antalgic gait pattern, although not as pronounced as yesterday. Reduced step height, reduced step length, reduced jason. Becomes short of breath with exertion. STAIRS: Patient ascends and descends 4 stairs, CGA, bilateral railings, step-to gait pattern. Seated rest, then ascends and descends [address]. Prefers to descend stairs facing up the stairs rather than down. Patient unable to step up onto a 3rd step in the second set. ASSESSMENT: Patient tolerates therapy well, although he does note increased right knee pain after ambulation and during / after stairs. Patient ends therapy session resting in bed as to elevate his legs for a while to reduce the pain. Call banks and bedside table in easy reach. PLAN: Per [facility], patient is expected to receive a bed offer at a SNF as early as today. Continue global strengthening per plan of care until patient discharges. TREATMENT CODE/TIME: 92803 Gait 33 minutes beginning at 9:50
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
--- NOTE | 2022-08-29 12:08 | PDOC.CMDIS ---
Date of service: 08/29/22 Time of Service: 12:08 LACE Index Scoring Tool Questions: Length of Stay (in days): 7 - 13 Was the patient admitted via the E.D.?: Yes Comorbidities: Congestive Heart Failure E.D. Visits: 2 Answers: Total Score: 12 Risk of Readmission: High Risk Care Management Discharge Plan Reason for Hospitalization: cellulitis and ambulatory dysfunction Discharge Plan: Cosmo will be transferred to [facility] today for short term rehab. He will follow up with the facility providers and plan of care and transport via facility W/C van. Patient/Family Education Needs: Review of discharge instructions, activity, limitations, follow up plan, discuss Ask me Three Services Needed at Discharge: [facility] Facility
--- NOTE | 2022-08-30 11:22 | PT.INDS ---
Date of service: 08/29/22 PT Notes Visit Reasons: Acute on Chronic Back Pain,DJD,Ambulatory Dysfunca Physical Therapy Inpatient Discharge Summary Date: 08/29/2022 Dates of Service:? 08/20/2022 through 08/29/2022 This is a clinical summary of care provided for the duration of dates listed above. No charge was made in the completion of this documentation. Referring Doctor: Fernando Vegas MD PT Orders: PT CONSULT: Eval/Treat Precautions: WBAT on B LE.? Fall risk.? Activity as tolerated.? Patient Profile/Admitting Diagnosis: Cosmo is a 72-year-old male with multiple co-morbidities including Parkinson's disease, TBI, spinal stenosis, and cervical spondylosis, and history of R knee surgeries, s/p decompression laminectomy who came back to the ED on 08/19/2022 due to a fall out of bed.? Patient is admitted for management of cellulitis of left knee, UTI, ambulatory dysfunction, incomplete emptying of bladder, urinary retention, BPH, and generalized weakness. Subjective: NT. See most recent RAILROAD TRACK REPAIR SUPERVISOR notes. Objective: General Observation: NT. See most recent RAILROAD TRACK REPAIR SUPERVISOR notes. Mental Status: NT. See most recent RAILROAD TRACK REPAIR SUPERVISOR notes. Pain: NT. See most recent RAILROAD TRACK REPAIR SUPERVISOR notes. ROM: Right Lower Extremity: Hip flexion about 20 beyind 90 (while seated on bedside chair) limited by abdominal pannus. Hip abduction WFL. Knee flexion? -20 to 90 degrees. Knee extension -20 degrees. Ankle dorsiflexion to neutral. Ankle plantarflexion WFL. Left Lower Extremity: Hip flexion about 20 beyind 90(while seated on bedside chair) limited by abdominal pannus. Hip abduction WFL. Knee flexion? WFL. Knee extension WFL. Ankle dorsiflexion WFL. Ankle plantarflexion WFL. Strength: Right Lower Extremity: Hip flexors 3-/5. Hip abductors 4-/5. Knee flexors 3-/5. Knee extensors 3-/5. Ankle dorsiflexors 4-/5. Ankle plantarflexors 4-/5. Left Lower Extremity: Hip flexors 3-/5. Hip abductors 4-/5. Knee flexors 4-/5. Knee extensors 4-/5. Ankle dorsiflexors 4-/5. Ankle plantarflexors 4-/5. Sensation: Intact as to pain and pressure on bilateral lower extremities. Denies any numbness nor tingling in B LE. Bed Mobility/Transfers: Sit to stand supervision Stand to sit supervision Bed to chair supervision Gait: Able to manage from 75 feet to 200 feet using his 4WW on level surfaces limited by back and knee pain report as well as body habitus issue. Balance: Static Sitting: Normal Dynamic Sitting: Good Static Standing: Fair Dynamic Standing: Fair Assessment:? Obesity, decreased strength in B LE, decreased activity tolerance, and co-morbidities limit ability of patient to consistently and safely manage mobility ADL performance and will highly benefit from short-term rehab placement prior to going home with services. Has a flight of steps that he needs to be able to do to safely go home.? Only managed to negotiate 3 steps before onset of fatigue and pain in low back and B knees. Patient presents with clinical signs and symptoms consistent with current/admitting diagnoses that have resulted to mobility limitations, gait instability, generalized weakness, and impairment of motor control as demonstrated by the following impairment level findings: 1. Weakness in B LE Impairments are contributing to the following functional limitations: 1. Inability to safely ambulate without AD 2. Increase completion time for mobility ADL performance 3. Increased fall risk 4. Inability to negotiate steps alone safely Goals: Goals X1 week 1. Supine-Sit independent? MET 2. Sit-Supine independent MET 3. Sit-Stand independent NOT MET,? CONTINUE at [facility] 4. Stand-Sit independent NOT MET,? CONTINUE at [facility] 5. Bed-Chair independent NOT MET,? CONTINUE at [facility] 6. Chair-Bed independent NOT MET,? CONTINUE at [facility] 7. Independent gait on level surface with use of least restrictive device for at least 300 feet without report of pain nor dyspnea NOT MET,? CONTINUE at [facility] 8. Independent stair negotiation while holding onto bilateral rails for at least 12 steps without report of pain nor dyspnea NOT MET,? CONTINUE at [facility] 9. Independent with home exercise program NOT MET,? CONTINUE at [facility] 10. Good static and dynamic standing balance/tolerance NOT MET,? CONTINUE at [facility] DISCHARGE RECOMMENDATIONS: [] ? Home with no services [] [] ? Home with services [] [] ? Home with outpatient PT [] [] ? SNF for continued rehabilitation [] [] ? Skilled Nursing Care [] [] ? SNF versus LTC based on ability to participate and progress [] [X]? PT vs.? SNF based on ability to progress towards goals TREATMENT CODE/TIME:? NC Thank you for the opportunity to participate in the care of this patient. Yary Warner PT, DPT, CLT [facility] [place], [place]
[2022-08-31 08:23] LABS: Mycoplasma Pneumoniae PCR Negative; Specimen source SPUTUM
== END 2022-08-29 13:58 | disposition skilled nursing facility (03) | DRG 602 ==
LOC: ER 16:49 → MS 17:37
PROVIDERS: Family Medicine; Internal Medicine; Admitting Provider Internal Medicine; Emergency Provider Emergency Medicine; Visit Provider Internal Medicine
DX: L03.116 Cellulitis of left lower limb (principal); I50.33 Acute on chronic diastolic (congestive) heart failure; N39.0 Urinary tract infection, site not specified; I48.20 Chronic atrial fibrillation, unspecified; Z68.41 Body mass index [BMI] 40.0-44.9, adult; T84.53XA Infection and inflammatory reaction due to internal right knee prosthesis, initial encounter; K92.2 Gastrointestinal hemorrhage, unspecified; R26.2 Difficulty in walking, not elsewhere classified; R33.9 Retention of urine, unspecified; R53.1 Weakness; M25.361 Other instability, right knee; S76.111A Strain of right quadriceps muscle, fascia and tendon, initial encounter; G89.29 Other chronic pain; M54.50 Low back pain, unspecified; M48.062 Spinal stenosis, lumbar region with neurogenic claudication; G25.81 Restless legs syndrome; F41.8 Other specified anxiety disorders; G47.33 Obstructive sleep apnea (adult) (pediatric); D64.9 Anemia, unspecified; R05.9 Cough, unspecified; R14.0 Abdominal distension (gaseous); E66.01 Morbid (severe) obesity due to excess calories; F12.90 Cannabis use, unspecified, uncomplicated; F17.220 Nicotine dependence, chewing tobacco, uncomplicated; D50.9 Iron deficiency anemia, unspecified; D52.9 Folate deficiency anemia, unspecified; G62.9 Polyneuropathy, unspecified; M1A.9XX0 Chronic gout, unspecified, without tophus (tophi); E78.5 Hyperlipidemia, unspecified; I11.0 Hypertensive heart disease with heart failure; Z79.01 Long term (current) use of anticoagulants; I73.00 Raynaud's syndrome without gangrene; N40.1 Benign prostatic hyperplasia with lower urinary tract symptoms; G56.03 Carpal tunnel syndrome, bilateral upper limbs; G20 Parkinson's disease; W06.XXXA Fall from bed, initial encounter; S80.212A Abrasion, left knee, initial encounter; S81.011A Laceration without foreign body, right knee, initial encounter; Z96.651 Presence of right artificial knee joint; N31.9 Neuromuscular dysfunction of bladder, unspecified; K59.81 Ogilvie syndrome; B96.89 Other specified bacterial agents as the cause of diseases classified elsewhere; K43.9 Ventral hernia without obstruction or gangrene; K80.20 Calculus of gallbladder without cholecystitis without obstruction
CPT/HCPCS: 36410; 36415; 73552; 80048; 80053; 84145; 85652; 87040; 87081; 87449; 97110; 97116; 97162; 97530; 99222; 99231; 70450; 71045; 72131; 72141; 72146; 72148; 72192; 73502; 73560; 73564; 74018; 74019; 74177; 80202; 81003; 81015; 83735; 83880; 84443; 85025; 86140; 87070; 87086; 87186; 87205; 87581; 87899; 93970; 94667; 94668; 99223; 99232; 99233; 99239; J1940; J2270; J2710; J3010; J3490; Q9967

== ENCOUNTER 2022-10-08 16:44 | Outpatient (REF) | payer MEDICARE, MEDICAID, SELFPAY ==
[2022-10-08 18:35] LABS: Bilirubin Negative (Negative); Blood Negative (Negative); Clarity Clear (Clear); Glucose Negative (Negative); Ketones Negative (Negative); Leukocyte Esterase Moderate (Negative); Nitrite Positive (Negative); Urobilinogen 0.2 mg/dL (Up to 0.2); pH 5.5 (5-8)
[2022-10-08 18:53] LABS: Bacteria Moderate HPF (Negative); C & S Indicated? C&S Done As Ordered; Casts Negative LPF (Negative); Crystals Negative HPF (Negative); Epithelial Cells Few HPF (Negative); Mucus Negative (Negative); RBC Negative HPF (0-2); WBC 20-50 HPF (0-5)
== END 2022-10-08 16:45 | disposition home or self-care (01) ==
LOC: LBN 16:44
PROVIDERS: Visit Provider Urology
DX: R31.9 Hematuria, unspecified (principal); N39.0 Urinary tract infection, site not specified
CPT/HCPCS: 87077; 81003; 81015; 87086; 87186

== ENCOUNTER 2022-10-30 16:43 | Outpatient (REF) | payer MEDICARE, MEDICAID, SELFPAY | END 2022-10-30 16:44 | disposition home or self-care (01) | LOC: LBN 16:43 | PROVIDERS: Visit Provider Urology | DX: R33.9 Retention of urine, unspecified (principal); N39.0 Urinary tract infection, site not specified; R10.9 Unspecified abdominal pain | CPT/HCPCS: 87077; 87086; 87186 ==

== ENCOUNTER → 2022-11-01 14:43 | Outpatient (BNVA) | payer MEDICARE, MEDICAID, SELFPAY | PROVIDERS: Visit Provider Urology ==

== ENCOUNTER 2022-11-01 17:27 | Outpatient (CLI) | payer MEDICARE, MEDICAID, SELFPAY ==
[2022-11-01 16:36] LABS: Abs Immature Grans 0.05 10^3/uL (0.0-0.06); Absolute Basophil Count 0.01 10^3/uL (0.0-0.2); Absolute Lymphocyte Count 0.84 10^3/uL (1.2-3.4); Absolute Monocyte Count 0.69 10^3/uL (0.1-0.8); Absolute Neutrophil Count 8.68 10^3/uL (1.2-6.7); Basophils % 0.1; HCT 38.3 % (40.0-50.0); HGB 12.1 g/dL (13.5-17.5); Immature Grans % 0.5; Lymphocytes % 8.2; MCH 25.4 pg (27.0-33.0); MCHC 31.6 % (32.0-36.0); MCV 80 fL (80-95); MPV 7.9 fL (8.0-11.0); Monocytes % 6.7; Neutrophils % 84.5; Platelet Count 246 10^3/uL (130-400); RBC 4.77 10^6/uL (4.36-5.78); RDW 18.7 % (11.8-14.1); RDW-SD 54.3 fL; WBC 10.27 10^3/uL (4.4-10.8)
[2022-11-01 17:09] LABS: ALT 10 U/L (16-63); AST 16 U/L (15-37); Albumin 3.6 g/dL (3.4-5.0); Alkaline Phosphatase 95 U/L (46-116); Anion Gap 10.7 mmol/L (3-11); BUN 30 mg/dL (7-18); Bilirubin, Total 0.6 mg/dL (0.2-1.0); C-Reactive Protein 4.52 mg/dL (0.0-0.3); CO2 26.3 mmol/L (21.0-32.0); CREATININE 1.1 mg/dL (0.70-1.30); Calcium 9.6 mg/dL (8.5-10.1); Chloride 102 mmol/L (98-107); Estimated GFR 70.88 (mL/min/1.73m2); Glucose 119 mg/dL (74-106); Potassium 3.7 mmol/L (3.5-5.1); Sodium 139 mmol/L (136-145); Total Protein 7.9 g/dL (6.4-8.2)
[2022-11-07 16:23] LABS: Testosterone, Total 96 ng/dL (240-950)
== END 2022-11-01 17:28 | disposition home or self-care (01) ==
LOC: LBO 17:28
PROVIDERS: Visit Provider Urology
DX: N39.0 Urinary tract infection, site not specified (principal); R33.9 Retention of urine, unspecified; T84.59XA Infection and inflammatory reaction due to other internal joint prosthesis, initial encounter; Z96.659 Presence of unspecified artificial knee joint; I50.32 Chronic diastolic (congestive) heart failure; E29.1 Testicular hypofunction
CPT/HCPCS: 36415; 80053; 84403; 99214; 85025; 86140; 96372; J0696

== ENCOUNTER → 2022-11-16 11:23 | Outpatient (BNVA) | payer MEDICARE, MEDICAID, SELFPAY | PROVIDERS: Visit Provider Urology | DX: N50.82 Scrotal pain (principal) | CPT/HCPCS: 81003; 99213 ==

== ENCOUNTER → 2022-11-30 22:57 | Outpatient (CLI) | payer MEDICARE, MEDICAID, SELFPAY ==
--- NOTE | 2022-11-30 07:30 | DI.US_ITS ---
Exam(s) US SCROTUM EXAM: US SCROTUM CLINICAL HISTORY: left scrotal pain, worsening,N50.82. TECHNIQUE: Scrotal ultrasound performed using grayscale, color-flow and spectral Doppler analysis. COMPARISON: No exams were available for comparison FINDINGS: RIGHT TESTICLE: 5.9 x 2.9 x 3.9 cm Echogenicity: Normal. Contour: Smooth. Mass: None seen. Microlithiasis: A few scattered microliths are seen Hydrocele: None. Varicocele: None. Hernia: No peristalsing bowel loop identified. Epididymis: Normal. Scrotum: Normal. LEFT TESTICLE: 4.9 x 2.9 x 3.9 cm Echogenicity: Normal. Contour: Smooth. Mass: None seen. Microlithiasis: A few scattered microliths are seen Hydrocele: None. Varicocele: None. Hernia: No peristalsing bowel loop identified. Epididymis: Normal. Scrotum: Normal. DOPPLER: Color: Symmetric and uniform, no hyperemia. Duplex: Bilateral testicular arterial waveforms visualized. IMPRESSION: Mild bilateral testicular microlithiasis. DATA REPOSITORY:
== END ==
PROVIDERS: PCP Nurse Practitioner; Visit Provider Nurse Practitioner Gerontology
DX: N50.89 Other specified disorders of the male genital organs (principal)
CPT/HCPCS: 76870

== ENCOUNTER → 2022-12-04 07:45 | Outpatient (BNVA) | payer MEDICARE, MEDICAID, SELFPAY | PROVIDERS: PCP Nurse Practitioner; Referring Provider Nurse Practitioner; Visit Provider Urology | DX: N50.82 Scrotal pain (principal) | CPT/HCPCS: 99443 ==

== ENCOUNTER → 2022-12-07 10:53 | Outpatient (BNVA) | payer MEDICARE, MEDICAID, SELFPAY | PROVIDERS: PCP Nurse Practitioner; Referring Provider Nurse Practitioner; Visit Provider Urology | DX: E29.1 Testicular hypofunction (principal); N50.82 Scrotal pain; Z87.440 Personal history of urinary (tract) infections; G62.9 Polyneuropathy, unspecified | CPT/HCPCS: 64450 ==

== ENCOUNTER → 2022-12-11 14:11 | Outpatient (BNVA) | payer MEDICARE, MEDICAID, SELFPAY | PROVIDERS: PCP Nurse Practitioner; Referring Provider Nurse Practitioner; Visit Provider Urology | DX: N50.82 Scrotal pain (principal); R33.8 Other retention of urine; N39.0 Urinary tract infection, site not specified; R31.9 Hematuria, unspecified | CPT/HCPCS: 64425 ==

== ENCOUNTER 2022-12-12 21:10 | Outpatient (CLI) | payer MEDICARE, MEDICAID, SELFPAY ==
[2022-12-12 21:41] LABS: Bilirubin Negative (Negative); Blood Negative (Negative); Clarity Clear (Clear); Glucose Negative (Negative); Ketones Trace mg/dL (Negative); Leukocyte Esterase Large (Negative); Nitrite Positive (Negative); Specific Gravity 1.015 (1.005-1.025); Urobilinogen 0.2 mg/dL (Up to 0.2)
[2022-12-12 21:50] LABS: Bacteria Many HPF (Negative); C & S Indicated? C&S Done As Ordered; Casts 0-2 Hyaline LPF (Negative); Crystals Few Amorphous HPF (Negative); Epithelial Cells Few HPF (Negative); Mucus Trace (Negative); Other Cells Rare Transitional (Negative); RBC 0-2 HPF (0-2)
== END 2022-12-12 21:11 | disposition home or self-care (01) ==
LOC: LBO 21:10
PROVIDERS: PCP Nurse Practitioner; Visit Provider Urology
DX: N39.0 Urinary tract infection, site not specified (principal); R33.9 Retention of urine, unspecified; R31.9 Hematuria, unspecified
CPT/HCPCS: 87077; 81003; 81015; 87086; 87186

== ENCOUNTER 2022-12-14 15:29 | Outpatient (CLI) | payer MEDICARE, MEDICAID, SELFPAY ==
[2022-12-20 02:39] LABS: Testosterone, Total 1060 ng/dL (240-950)
== END 2022-12-14 15:30 | disposition home or self-care (01) ==
LOC: LBO 15:30
PROVIDERS: PCP Nurse Practitioner; Visit Provider Urology
DX: E29.1 Testicular hypofunction (principal)
CPT/HCPCS: 36415; 84403

== ENCOUNTER → 2022-12-17 10:59 | Outpatient (BNVA) | payer MEDICARE, MEDICAID, SELFPAY | PROVIDERS: PCP Nurse Practitioner; Referring Provider Nurse Practitioner; Visit Provider Urology | DX: N50.82 Scrotal pain (principal) | CPT/HCPCS: 64425 ==

== ENCOUNTER → 2022-12-21 12:36 | Outpatient (BNVA) | payer MEDICARE, MEDICAID, SELFPAY | PROVIDERS: PCP Nurse Practitioner; Referring Provider Nurse Practitioner; Visit Provider Urology | DX: N50.82 Scrotal pain (principal) | CPT/HCPCS: 64425 ==

== ENCOUNTER → 2022-12-24 14:39 | Outpatient (BNVA) | payer MEDICARE, MEDICAID, SELFPAY | PROVIDERS: PCP Nurse Practitioner; Referring Provider Nurse Practitioner; Visit Provider Urology | DX: N50.82 Scrotal pain (principal) | CPT/HCPCS: 64425 ==

== ENCOUNTER → 2023-01-01 14:24 | Outpatient (BNVA) | payer MEDICARE, MEDICAID, SELFPAY | PROVIDERS: PCP Nurse Practitioner; Referring Provider Nurse Practitioner; Visit Provider Urology | DX: N50.82 Scrotal pain (principal) | CPT/HCPCS: 64425; 81003 ==

== ENCOUNTER 2023-01-01 18:32 | Outpatient (REF) | payer MEDICARE, MEDICAID, SELFPAY | END 2023-01-01 18:33 | disposition home or self-care (01) | LOC: LBN 18:32 | PROVIDERS: PCP Nurse Practitioner; Visit Provider Urology | DX: N39.0 Urinary tract infection, site not specified (principal) | CPT/HCPCS: 87086 ==

== ENCOUNTER → 2023-01-04 11:42 | Outpatient (BNVA) | payer MEDICARE, MEDICAID, SELFPAY | PROVIDERS: PCP Nurse Practitioner; Referring Provider Nurse Practitioner; Visit Provider Urology | DX: N50.82 Scrotal pain (principal) | CPT/HCPCS: 64425 ==

== ENCOUNTER → 2023-01-08 10:55 | Outpatient (BNVA) | payer MEDICARE, MEDICAID, SELFPAY | PROVIDERS: PCP Nurse Practitioner; Referring Provider Nurse Practitioner; Visit Provider Urology | DX: N50.82 Scrotal pain (principal) | CPT/HCPCS: 64425 ==

== ENCOUNTER → 2023-01-14 15:27 | Outpatient (BNVA) | payer MEDICARE, MEDICAID, SELFPAY | PROVIDERS: PCP Nurse Practitioner; Referring Provider Nurse Practitioner; Visit Provider Urology | DX: N50.82 Scrotal pain (principal); R10.31 Right lower quadrant pain; R10.32 Left lower quadrant pain | CPT/HCPCS: 64425 ==

== ENCOUNTER → 2023-01-17 10:27 | Outpatient (BNVA) | payer MEDICARE, MEDICAID, SELFPAY | PROVIDERS: PCP Nurse Practitioner; Referring Provider Nurse Practitioner; Visit Provider Urology | DX: R10.31 Right lower quadrant pain; R10.32 Left lower quadrant pain; N50.82 Scrotal pain | CPT/HCPCS: 64425 ==

== ENCOUNTER → 2023-01-22 09:20 | Outpatient (BNVA) | payer MEDICARE, MEDICAID, SELFPAY | PROVIDERS: PCP Nurse Practitioner; Referring Provider Nurse Practitioner; Visit Provider Urology | DX: R10.31 Right lower quadrant pain (principal); R10.32 Left lower quadrant pain; N50.82 Scrotal pain | CPT/HCPCS: 64425 ==

== ENCOUNTER → 2023-01-25 15:40 | Outpatient (BNVA) | payer MEDICARE, MEDICAID, SELFPAY | PROVIDERS: PCP Nurse Practitioner; Referring Provider Nurse Practitioner; Visit Provider Urology | DX: R10.32 Left lower quadrant pain (principal); R10.31 Right lower quadrant pain; N50.82 Scrotal pain | CPT/HCPCS: 64425 ==

== ENCOUNTER → 2023-01-28 15:29 | Outpatient (BNVA) | payer MEDICARE, MEDICAID, SELFPAY | PROVIDERS: PCP Nurse Practitioner; Referring Provider Nurse Practitioner; Visit Provider Urology | DX: R10.32 Left lower quadrant pain (principal); R10.31 Right lower quadrant pain; N50.82 Scrotal pain | CPT/HCPCS: 64425 ==

== ENCOUNTER → 2023-02-01 14:34 | Outpatient (BNVA) | payer MEDICARE, MEDICAID, SELFPAY | PROVIDERS: PCP Nurse Practitioner; Referring Provider Nurse Practitioner; Visit Provider Urology | DX: R10.31 Right lower quadrant pain (principal); R10.32 Left lower quadrant pain; N50.82 Scrotal pain; R33.8 Other retention of urine | CPT/HCPCS: 64425; 81003 ==

== ENCOUNTER 2023-02-01 16:30 | Outpatient (REF) | payer MEDICARE, MEDICAID, SELFPAY | END 2023-02-01 16:31 | disposition home or self-care (01) | LOC: LBN 16:30 | PROVIDERS: PCP Nurse Practitioner; Visit Provider Urology | DX: R33.9 Retention of urine, unspecified (principal); N39.0 Urinary tract infection, site not specified | CPT/HCPCS: 87077; 87086; 87186 ==

== ENCOUNTER → 2023-02-07 14:57 | Outpatient (BNVA) | payer MEDICARE, MEDICAID, SELFPAY | PROVIDERS: PCP Nurse Practitioner; Referring Provider Nurse Practitioner; Visit Provider Urology | DX: R10.31 Right lower quadrant pain (principal); R10.32 Left lower quadrant pain; N50.82 Scrotal pain | CPT/HCPCS: 64425 ==

== ENCOUNTER → 2023-02-12 09:56 | Outpatient (BNVA) | payer MEDICARE, MEDICAID, SELFPAY | PROVIDERS: PCP Nurse Practitioner; Referring Provider Nurse Practitioner; Visit Provider Urology | DX: R10.31 Right lower quadrant pain (principal); R10.32 Left lower quadrant pain; N50.82 Scrotal pain | CPT/HCPCS: 64425 ==

== ENCOUNTER → 2023-02-15 09:37 | Outpatient (BNVA) | payer MEDICARE, MEDICAID, SELFPAY | PROVIDERS: PCP Nurse Practitioner; Referring Provider Nurse Practitioner; Visit Provider Urology | DX: R10.31 Right lower quadrant pain (principal); R10.32 Left lower quadrant pain; N50.82 Scrotal pain | CPT/HCPCS: 64425 ==

== ENCOUNTER → 2023-02-19 10:27 | Outpatient (BNVA) | payer MEDICARE, MEDICAID, SELFPAY | PROVIDERS: PCP Nurse Practitioner; Referring Provider Nurse Practitioner; Visit Provider Urology | DX: R10.31 Right lower quadrant pain (principal); R10.32 Left lower quadrant pain; N50.82 Scrotal pain | CPT/HCPCS: 64425 ==

== ENCOUNTER → 2023-02-22 09:58 | Outpatient (BNVA) | payer MEDICARE, MEDICAID, SELFPAY | PROVIDERS: PCP Nurse Practitioner; Referring Provider Nurse Practitioner; Visit Provider Urology | DX: N39.0 Urinary tract infection, site not specified (principal); R10.31 Right lower quadrant pain; R10.32 Left lower quadrant pain; R33.8 Other retention of urine; N50.82 Scrotal pain | CPT/HCPCS: 51702; 64425 ==

== ENCOUNTER 2023-02-22 12:51 | Outpatient (REF) | payer MEDICARE, MEDICAID, SELFPAY | END 2023-02-22 12:52 | disposition home or self-care (01) | LOC: LBN 12:51 | PROVIDERS: PCP Nurse Practitioner; Visit Provider Urology | DX: N39.0 Urinary tract infection, site not specified (principal) | CPT/HCPCS: 87086 ==

== ENCOUNTER → 2023-02-25 15:00 | Outpatient (BNVA) | payer MEDICARE, MEDICAID, SELFPAY | PROVIDERS: PCP Nurse Practitioner; Referring Provider Nurse Practitioner; Visit Provider Urology | DX: R10.31 Right lower quadrant pain (principal); R10.32 Left lower quadrant pain; N50.82 Scrotal pain | CPT/HCPCS: 64425 ==

== ENCOUNTER → 2023-02-28 10:14 | Outpatient (BNVA) | payer MEDICARE, MEDICAID, SELFPAY | PROVIDERS: PCP Nurse Practitioner; Referring Provider Nurse Practitioner; Visit Provider Urology | DX: R10.31 Right lower quadrant pain (principal); R10.32 Left lower quadrant pain; N50.82 Scrotal pain | CPT/HCPCS: 64425 ==

== ENCOUNTER → 2023-03-04 10:33 | Outpatient (BNVA) | payer MEDICARE, MEDICAID, SELFPAY | PROVIDERS: PCP Nurse Practitioner; Referring Provider Nurse Practitioner; Visit Provider Urology | DX: R10.31 Right lower quadrant pain (principal); R10.32 Left lower quadrant pain; N50.82 Scrotal pain | CPT/HCPCS: 64425 ==

== ENCOUNTER → 2023-03-08 14:35 | Outpatient (BNVA) | payer MEDICARE, MEDICAID, SELFPAY | PROVIDERS: PCP Nurse Practitioner; Referring Provider Nurse Practitioner; Visit Provider Urology | DX: R10.31 Right lower quadrant pain (principal); R10.32 Left lower quadrant pain; N50.82 Scrotal pain | CPT/HCPCS: 64425 ==

== ENCOUNTER → 2023-03-15 09:37 | Outpatient (BNVA) | payer MEDICARE, MEDICAID, SELFPAY | PROVIDERS: PCP Nurse Practitioner; Referring Provider Nurse Practitioner; Visit Provider Urology | DX: R10.31 Right lower quadrant pain (principal); R10.32 Left lower quadrant pain; N50.82 Scrotal pain | CPT/HCPCS: 64425 ==

== ENCOUNTER 2023-03-19 15:50 | Outpatient (REF) | payer MEDICARE, MEDICAID, SELFPAY ==
[2023-03-19 16:59] LABS: Bilirubin Negative (Negative); Blood Trace-intact (Negative); Clarity Cloudy (Clear); Glucose Negative (Negative); Ketones Negative (Negative); Leukocyte Esterase Large (Negative); Nitrite Positive (Negative); Specific Gravity 1.015 (1.005-1.025); Urobilinogen 0.2 mg/dL (Up to 0.2); pH 7.5 (5-8)
[2023-03-19 17:14] LABS: Bacteria Moderate HPF (Negative); C & S Indicated? C&S Done As Ordered; Epithelial Cells Moderate HPF (Negative); Mucus Trace (Negative); Other Cells Rare Transitional (Negative); RBC 0-2 HPF (0-2); WBC >50 HPF (0-5)
== END 2023-03-19 15:51 | disposition home or self-care (01) ==
LOC: LBN 15:50
PROVIDERS: PCP Nurse Practitioner; Visit Provider Urology
DX: N39.0 Urinary tract infection, site not specified (principal)
CPT/HCPCS: 87077; 81003; 81015; 87086; 87186

== ENCOUNTER → 2023-03-22 13:57 | Outpatient (BNVA) | payer MEDICARE, MEDICAID, SELFPAY | PROVIDERS: PCP Nurse Practitioner; Referring Provider Nurse Practitioner; Visit Provider Urology | DX: R10.31 Right lower quadrant pain (principal); R10.32 Left lower quadrant pain; N50.82 Scrotal pain; Z87.440 Personal history of urinary (tract) infections | CPT/HCPCS: 64425 ==

== ENCOUNTER 2023-03-29 02:38 | Outpatient (CLI) | payer MEDICARE, MEDICAID, SELFPAY ==
[2023-04-04 09:12] LABS: Testosterone, Total 772 ng/dL (240-950)
== END 2023-03-29 02:39 | disposition home or self-care (01) ==
LOC: LBO 02:39
PROVIDERS: PCP Nurse Practitioner; Visit Provider Urology
DX: E29.1 Testicular hypofunction (principal)
CPT/HCPCS: 36415; 84403

== ENCOUNTER → 2023-04-05 14:56 | Outpatient (BNVA) | payer MEDICARE, MEDICAID, SELFPAY | PROVIDERS: PCP Nurse Practitioner; Referring Provider Nurse Practitioner; Visit Provider Urology | DX: R10.31 Right lower quadrant pain (principal); R10.32 Left lower quadrant pain; N50.82 Scrotal pain; N39.0 Urinary tract infection, site not specified; E29.1 Testicular hypofunction | CPT/HCPCS: 64425; 81003 ==

== ENCOUNTER 2023-04-05 17:59 | Outpatient (REF) | payer MEDICARE, MEDICAID, SELFPAY | END 2023-04-05 18:00 | disposition home or self-care (01) | LOC: LBN 17:59 | PROVIDERS: PCP Nurse Practitioner; Visit Provider Urology | DX: N39.0 Urinary tract infection, site not specified (principal); R82.89 Other abnormal findings on cytological and histological examination of urine | CPT/HCPCS: 87086 ==

== ENCOUNTER → 2023-04-12 14:03 | Outpatient (BNVA) | payer MEDICARE, MEDICAID, SELFPAY | PROVIDERS: PCP Nurse Practitioner; Referring Provider Nurse Practitioner; Visit Provider Urology | DX: R10.31 Right lower quadrant pain (principal); R10.32 Left lower quadrant pain; N50.82 Scrotal pain; N39.0 Urinary tract infection, site not specified | CPT/HCPCS: 64425 ==

== ENCOUNTER → 2023-04-16 15:02 | Outpatient (BNVA) | payer MEDICARE, MEDICAID, SELFPAY | PROVIDERS: PCP Nurse Practitioner; Referring Provider Nurse Practitioner; Visit Provider Urology | DX: R10.31 Right lower quadrant pain (principal); R10.32 Left lower quadrant pain; N50.82 Scrotal pain | CPT/HCPCS: 64425 ==

== ENCOUNTER 2023-04-16 17:30 | Outpatient (REF) | payer MEDICARE, MEDICAID, SELFPAY | END 2023-04-16 17:31 | disposition home or self-care (01) | LOC: LBN 17:30 | PROVIDERS: PCP Nurse Practitioner; Visit Provider Urology | DX: N39.0 Urinary tract infection, site not specified (principal) | CPT/HCPCS: 87077; 87086; 87186 ==

== ENCOUNTER → 2023-05-03 12:20 | Outpatient (BNVA) | payer MEDICARE, MEDICAID, SELFPAY | PROVIDERS: PCP Nurse Practitioner; Referring Provider Nurse Practitioner; Visit Provider Urology | DX: R33.8 Other retention of urine (principal); Z87.440 Personal history of urinary (tract) infections | CPT/HCPCS: 81003; 99214 ==

== ENCOUNTER 2023-05-03 13:31 | Outpatient (REF) | payer MEDICARE, MEDICAID, SELFPAY | END 2023-05-03 13:32 | disposition home or self-care (01) | LOC: LBN 13:31 | PROVIDERS: PCP Nurse Practitioner; Referring Provider Urology; Visit Provider Urology | DX: N39.0 Urinary tract infection, site not specified (principal) | CPT/HCPCS: 87077; 87086; 87186 ==

== ENCOUNTER → 2023-05-14 14:21 | Outpatient (BNVA) | payer MEDICARE, MEDICAID, SELFPAY | PROVIDERS: PCP Nurse Practitioner; Referring Provider Nurse Practitioner; Visit Provider Urology | DX: R33.8 Other retention of urine (principal); N39.0 Urinary tract infection, site not specified | CPT/HCPCS: 81003; 99213 ==

== ENCOUNTER 2023-05-14 14:47 | Outpatient (REF) | payer MEDICARE, MEDICAID, SELFPAY | END 2023-05-14 14:48 | disposition home or self-care (01) | LOC: LBN 14:47 | PROVIDERS: PCP Nurse Practitioner; Visit Provider Urology | DX: R33.9 Retention of urine, unspecified (principal) | CPT/HCPCS: 87077; 87086; 87186 ==

== ENCOUNTER 2023-05-31 15:20 | Outpatient (REF) | payer MEDICARE, MEDICAID, SELFPAY ==
[2023-05-31 16:56] LABS: Bilirubin Negative (Negative); Blood Negative (Negative); Clarity Cloudy (Clear); Glucose Negative (Negative); Ketones Negative (Negative); Leukocyte Esterase Large (Negative); Nitrite Negative (Negative); Specific Gravity 1.015 (1.005-1.025); Urobilinogen 0.2 mg/dL (Up to 0.2); pH 5.5 (5-8)
[2023-05-31 17:03] LABS: Bacteria Few HPF (Negative); C & S Indicated? C&S Done As Ordered; Casts Negative LPF (Negative); Crystals Negative HPF (Negative); Epithelial Cells Rare HPF (Negative); Mucus Negative (Negative); Other Cells Few Yeast (Negative); RBC 0-2 HPF (0-2); WBC >50 HPF (0-5)
== END 2023-05-31 15:21 | disposition home or self-care (01) ==
LOC: LBN 15:20
PROVIDERS: PCP Nurse Practitioner; Visit Provider Urology
DX: N39.0 Urinary tract infection, site not specified (principal)
CPT/HCPCS: 81003; 81015; 87086

== ENCOUNTER → 2023-06-04 09:57 | Outpatient (BNVA) | payer MEDICARE, MEDICAID, SELFPAY | PROVIDERS: PCP Nurse Practitioner; Referring Provider Nurse Practitioner; Visit Provider Urology | DX: R10.32 Left lower quadrant pain (principal); N50.82 Scrotal pain | CPT/HCPCS: 64425 ==

== ENCOUNTER → 2023-07-02 12:29 | Outpatient (BNVA) | payer MEDICARE, MEDICAID, SELFPAY | PROVIDERS: PCP Nurse Practitioner; Referring Provider Nurse Practitioner; Visit Provider Urology | DX: N50.82 Scrotal pain (principal); R10.32 Left lower quadrant pain; R33.8 Other retention of urine | CPT/HCPCS: 64425; J2920 ==

== ENCOUNTER 2023-07-02 13:16 | Outpatient (REF) | payer MEDICARE, MEDICAID, SELFPAY ==
[2023-07-02 14:48] LABS: Bilirubin Negative (Negative); Blood Negative (Negative); Clarity Sl Cloudy (Clear); Glucose Negative (Negative); Ketones Negative (Negative); Leukocyte Esterase Trace (Negative); Nitrite Positive (Negative); Specific Gravity 1.015 (1.005-1.025); Urobilinogen 0.2 mg/dL (Up to 0.2); pH 5.5 (5-8)
[2023-07-02 14:58] LABS: Bacteria Moderate HPF (Negative); C & S Indicated? C&S Done As Ordered; Casts Negative LPF (Negative); Crystals Negative HPF (Negative); Epithelial Cells Few HPF (Negative); Mucus Negative (Negative); RBC Negative HPF (0-2)
== END 2023-07-02 13:17 | disposition home or self-care (01) ==
LOC: LBN 13:16
PROVIDERS: PCP Nurse Practitioner; Visit Provider Urology
DX: N39.0 Urinary tract infection, site not specified (principal); R31.9 Hematuria, unspecified; R33.9 Retention of urine, unspecified
CPT/HCPCS: 87077; 81003; 81015; 87086; 87186

== ENCOUNTER 2023-07-18 15:47 | Outpatient (REF) | payer MEDICARE, MEDICAID, SELFPAY ==
[2023-07-18 21:46] LABS: Bilirubin Negative (Negative); Blood Negative (Negative); Clarity Clear (Clear); Glucose Negative (Negative); Ketones Negative (Negative); Leukocyte Esterase Negative (Negative); Nitrite Negative (Negative); Specific Gravity 1.025 (1.005-1.025); Urobilinogen 0.2 mg/dL (Up to 0.2)
== END 2023-07-18 15:48 | disposition home or self-care (01) ==
LOC: LBN 15:47
PROVIDERS: PCP Nurse Practitioner; Visit Provider Urology
DX: R33.9 Retention of urine, unspecified; R82.89 Other abnormal findings on cytological and histological examination of urine
CPT/HCPCS: 87077; 81003; 87086; 87186

== ENCOUNTER → 2023-08-02 12:35 | Outpatient (BNVA) | payer MEDICARE, MEDICAID, SELFPAY | PROVIDERS: PCP Nurse Practitioner; Referring Provider Nurse Practitioner; Visit Provider Urology | DX: R10.31 Right lower quadrant pain (principal); R10.32 Left lower quadrant pain; N50.82 Scrotal pain | CPT/HCPCS: 64425 ==

== ENCOUNTER 2023-08-13 15:46 | Outpatient (REF) | payer MEDICARE, MEDICAID, SELFPAY ==
[2023-08-13 11:35] LABS: Bilirubin Negative (Negative); Blood Trace-intact (Negative); Clarity Cloudy (Clear); Glucose Negative (Negative); Ketones Negative (Negative); Leukocyte Esterase Moderate (Negative); Nitrite Negative (Negative); Urobilinogen 0.2 mg/dL (Up to 0.2); pH 5.5 (5-8)
[2023-08-13 11:47] LABS: Bacteria Moderate HPF (Negative); C & S Indicated? No/Sq. Contamination; Casts Negative LPF (Negative); Crystals Negative HPF (Negative); Epithelial Cells Many HPF (Negative); Mucus Moderate (Negative); RBC 0-2 HPF (0-2); WBC >50 HPF (0-5)
== END 2023-08-13 15:47 | disposition home or self-care (01) ==
LOC: LBN 15:46
PROVIDERS: PCP Nurse Practitioner; Visit Provider Urology
DX: N39.0 Urinary tract infection, site not specified (principal)
CPT/HCPCS: 81003; 81015

== ENCOUNTER → 2023-08-15 12:11 | Outpatient (BNVA) | payer MEDICARE, MEDICAID, SELFPAY | PROVIDERS: PCP Nurse Practitioner; Referring Provider Nurse Practitioner; Visit Provider Urology | DX: R10.31 Right lower quadrant pain (principal); R10.32 Left lower quadrant pain; N50.82 Scrotal pain; N39.0 Urinary tract infection, site not specified | CPT/HCPCS: 64425 ==

== ENCOUNTER 2023-08-15 14:47 | Outpatient (REF) | payer MEDICARE, MEDICAID, SELFPAY | END 2023-08-15 14:48 | disposition home or self-care (01) | LOC: LBN 14:47 | PROVIDERS: PCP Nurse Practitioner; Visit Provider Urology | DX: R33.9 Retention of urine, unspecified (principal) | CPT/HCPCS: 87077; 87086; 87186 ==

== ENCOUNTER → 2023-08-21 13:36 | Outpatient (BNVA) | payer MEDICARE, MEDICAID, SELFPAY | PROVIDERS: PCP Nurse Practitioner; Referring Provider Nurse Practitioner; Visit Provider Nurse Practitioner Gerontology | DX: N39.0 Urinary tract infection, site not specified (principal) | CPT/HCPCS: 81003; 99214 ==

== ENCOUNTER 2023-08-21 15:20 | Outpatient (REF) | payer MEDICARE, MEDICAID, SELFPAY | END 2023-08-21 15:21 | disposition home or self-care (01) | LOC: LBN 15:20 | PROVIDERS: PCP Nurse Practitioner; Visit Provider Nurse Practitioner Gerontology | DX: N39.0 Urinary tract infection, site not specified (principal) | CPT/HCPCS: 87077; 87086; 87186 ==

== ENCOUNTER 2023-09-01 18:53 | Emergency (ER) | payer OTHER, SELFPAY ==
[2023-09-01] VITALS (20 sets, daily range): BP systolic 103–125; BP diastolic 58–83; PULSE 65–86; RESP 12–23; O2SAT 94–98
--- NOTE | 2023-09-01 18:45 | RT.EKG_ITS ---
APPROVED REPORT Exam: Resting ECG Reason for Exam: fall/struck head Patient Location: E HR:75 bpm ECG Measurements Heart Rate 75 AXIS ME [id number] P [id number] QRSd 179 QRS -79 QT 426 T -70 QTc 477 Conclusion Atrial fibrillation...V-rate 59- 93, irreg A-activity RBBB and LAFB...QRSd >120mS, axis(-40,240)
--- NOTE | 2023-09-01 19:00 | DI.RAD_ITS ---
Exam(s) XR PELVIS AP EXAM: XR PELVIS AP CLINICAL HISTORY: pain s/p fall. TECHNIQUE: 2D digital imaging was performed. COMPARISON: CR,XR XR HIP RT COMPLETE AP PELVIS from 08/19/2022 FINDINGS: Single AP view of the pelvis No obvious acute fractures. Fusion hardware and intervertebral disc space is noted in the lower lumb ar spine. Bone density normal. No osseous lesions. Mild degenerative changes in the hips. IMPRESSION: No acute osseous findings in the pelvis. Hardware as above DATA REPOSITORY: RADIATION DOSE DELIVERED:
--- NOTE | 2023-09-01 19:00 | DI.RAD_ITS ---
Exam(s) XR FEMUR RT EXAM: XR FEMUR RT CLINICAL HISTORY: pain s/p fall. TECHNIQUE: 2D digital imaging was performed. COMPARISON: CR XR FEMUR LT from 08/24/2022 FINDINGS: Two views. There is a right knee prosthesis. No evidence of fracture nor obvious hardware loosening in the femu r. There is mild lucency subjacent to the tibial component of the knee prosthesis. Hip joint appear s unremarkable. Bone density normal. No osseous lesions IMPRESSION: No acute osseous findings. Possible loosening of the tibial component of the right knee prosthesis. DATA REPOSITORY: RADIATION DOSE DELIVERED:
--- NOTE | 2023-09-01 19:00 | DI.CT_ITS ---
Exam(s) CT THORACIC LUMBAR SPINE WO EXAM: CT THORACIC LUMBAR SPINE WO CLINICAL HISTORY: pain s/p fall. TECHNIQUE: Imaging Protocol: Axial computed tomography images with coronal and sagittal reformatted images were created and reviewed. CONTRAST MATERIAL: Intravenous: None COMPARISON: CT CT LUMBAR SPINE WO from 08/19/2022 FINDINGS: THORACIC SPINAL COLUMN: Chronic compression fracture C7 noted. No fractures of thoracic vertebral lorenza dies evident. Multilevel calcification in the anterior lung tuna ligament noted. Also multilevel br idging osteophytes. No osseous lesions. LUMBOSACRAL SPINAL COLUMN: No evidence of fracture nor listhesis. Multilevel laminectomies and poste rior fusion rods supported by intra pedicular screws. There are screws from the lower aspect of the spinal rods extending across the sacroiliac joints. There is partial ankylosis of the left sacroilia c joint. No ankylosis is seen of the right sacroiliac joint. No evidence of hardware fracture. Int ervertebral disc space divide ower is are noted at L4-5 and L5-S1 levels which appear to be in good p osition. There is no prominent disc space narrowing at the disc space immediately above the fusion l evels (L1-2). Vacuum phenomenon seen within the L2-3 disc space. No osseous lesions. IMPRESSION: No fractures evident in the thoracic and lumbosacral spinal columns. Multilevel fusion surgery in the lumbar spine with posterior fusion rods extending from L2 down to S1 levels. RADIATION DOSE DELIVERED: 2,854.64mGy.cm Total DLP DATA REPOSITORY: All CT scans at this facility are submitted to the National Radiology Data Registry (NRDR) Dose Index Registry (DIR) with the [employer] ([employer]). RADIATION OPTIMIZATION: All CT scans at this facility use at least one of these dose optimization te chniques: automated exposure control; mA and/or kV adjustment per patient size (includes targeted exa ms where dose is matched to clinical indication); or iterative reconstruction.
--- NOTE | 2023-09-01 19:00 | DI.CT_ITS ---
Exam(s) CT HEAD CERVICAL SPINE WO EXAM: CT HEAD CERVICAL SPINE WO CLINICAL HISTORY: pain s/p fall. TECHNIQUE: Imaging Protocol: Axial computed tomography images with coronal and sagittal reformatted images were created and reviewed COMPARISON: CT CT HEAD WO from 08/19/2022 MR MR CERVICAL SPINE WO from 08/22/2022 MRI cervical spine August 2022. FINDINGS: BRAIN: There are no skull fractures nor fluid in the visualized paranasal sinuses. There is no evidence of intracranial hemorrhage, mass effect, or shift of midline structures. There are no extra-axial fluid collections. The ventricles are not enlarged or shifted and there is no blo od within the ventricular system nor within the basal cisterns. Again noted is evidence of previous infarct in the right frontal lobe, unchanged. Also unchanged sub lenticular cyst on the left side. CERVICAL SPINE: There has been prior surgery with prior laminectomies at C3-4-5 levels and bilateral posterior fusion rods at these 3 levels secured by screws. Nonacute appearing compression fracture of C7 noted. Posterior cortex bulging again noted at this le lisa. Also partial fusion across the C6-7 disc space again evident. There is no significant facet joint malalignment. No significant osseous lesions evident. IMPRESSION: No acute intracranial findings on this noninfused CT scan of the brain.Other findings as above which are unchanged from August 2022. No evidence of cervical spine fracture, malalignment, nor acute compromise of the cervical spinal can al. Chronic C7 compression fracture again noted as is partial fusion across the C6-7 disc space Prior laminectomies C3-4-5 levels and fusion hardware posteriorly at these levels. RADIATION DOSE DELIVERED: 1,434.4mGy.cm Total DLP DATA REPOSITORY: All CT scans at this facility are submitted to the National Radiology Data Registry (NRDR) Dose Index Registry (DIR) with the [employer] ([employer]). RADIATION OPTIMIZATION: All CT scans at this facility use at least one of these dose optimization te chniques: automated exposure control; mA and/or kV adjustment per patient size (includes targeted exa ms where dose is matched to clinical indication); or iterative reconstruction.
--- NOTE | 2023-09-01 19:00 | DI.RAD_ITS ---
Exam(s) XR FEMUR LT EXAM: XR FEMUR LT CLINICAL HISTORY: pain s/p fall. TECHNIQUE: 2D digital imaging was performed. COMPARISON: CR,XR XR FEMUR RT from 09/01/2023 FINDINGS: Two views. No evidence acute fracture. Bone density normal. No osseous lesions. Hip appears unremarkable but there are degenerative changes noted in the knee, most prominent in the medial compartment. Bone den sity normal. No osseous lesions. IMPRESSION: No fractures evident. Degenerative changes evident in the left knee. DATA REPOSITORY: RADIATION DOSE DELIVERED:
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
[2023-09-01 19:33] LABS: Abs Immature Grans 0.02 10^3/uL (0.0-0.06); Absolute Basophil Count 0.04 10^3/uL (0.0-0.2); Absolute Eosinophil Count 0.17 10^3/uL (0.0-0.7); Absolute Lymphocyte Count 1.25 10^3/uL (1.2-3.4); Absolute Monocyte Count 0.86 10^3/uL (0.1-0.8); Absolute Neutrophil Count 4.46 10^3/uL (1.2-6.7); Basophils % 0.6 %; Eosinophils % 2.5 %; HCT 36.1 % (40.0-50.0); HGB 11.1 g/dL (13.5-17.5); Immature Grans % 0.3 %; Lymphocytes % 18.4 %; MCH 25.2 pg (27.0-33.0); MCHC 30.7 % (32.0-36.0); MCV 82 fL (80-95); MPV 8.1 fL (8.0-11.0); Monocytes % 12.6 %; Neutrophils % 65.6 %; Platelet Count 247 10^3/uL (130-400); RBC 4.41 10^6/uL (4.36-5.78); RDW 22.3 % (11.8-14.1); RDW-SD 66.2 fL
[2023-09-01] MEDS: Ketorolac 15 MG/ML VIAL IVP (19:35)
[2023-09-01 19:43] LABS: Magnesium 2.1 mg/dL (1.8-2.4)
[2023-09-01 19:46] LABS: PTT Activated 27.1 sec (23.6-32.8); Prothrombin Time 10.4 sec (9.1-11.1)
[2023-09-01 19:49] LABS: ALT 14 U/L (16-63); AST 13 U/L (15-37); Albumin 3.1 g/dL (3.4-5.0); Alkaline Phosphatase 82 U/L (46-116); Anion Gap 7.8 mmol/L (3-11); Anisocytosis 2+; BUN 28 mg/dL (7-18); Bilirubin, Total 0.47 mg/dL (0.2-1.0); CO2 30.2 mmol/L (21.0-32.0); CREATININE 1.1 mg/dL (0.70-1.30); Calcium 8.7 mg/dL (8.5-10.1); Chloride 106 mmol/L (98-107); Diff Comment RBC Morph Reviewed; Estimated GFR 70.44 (mL/min/1.73m2); Glucose 105 mg/dL (74-106); Hypochromasia 1+; Potassium 4.2 mmol/L (3.5-5.1); Sodium 144 mmol/L (136-145); Total Protein 6.6 g/dL (6.4-8.2)
[2023-09-01] MEDS: LORazepam 2 MG/ML VIAL 1 MG IVP (20:00)
--- NOTE | 2023-09-01 20:20 | DI.VRAD_ITS ---
PROCEDURE INFORMATION: Exam: CT Head Without Contrast Exam date and time: 09/01/2023 7:50 PM Age: 73 years old Clinical indication: Injury or trauma; Blunt trauma (contusions or hematomas); Consciousness not specified; Injury date: 09/01/23; Injury details: Pain, S/P fall TECHNIQUE: Imaging protocol: Computed tomography of the head without contrast. Radiation optimization: All CT scans at this facility use at least one of these dose optimization techniques: automated exposure control; mA and/or kV adjustment per patient size (includes targeted exams where dose is matched to clinical indication); or iterative reconstruction. COMPARISON: CT HEAD WO 08/19/2022 9:48 AM FINDINGS: Brain: Ventricles, sulci are unchanged when compared with the patient's prior exam. There is mild ventricular, cortical sulcal prominence consistent with central, cortical atrophy. There is remote ischemic change in the right frontal lobe/right MCA distribution. There is a prominent perivascular space noted in the inferior left lentiform nucleus. There is a small remote infarct in the left cerebellum. There is some minimal low attenuation elsewhere within the periventricular white matter, nonspecific but likely small-vessel change/microangiopathy. There is no evidence of acute hemorrhage. There is no new mass or shift. There is no definite acute cortical or major vascular territory infarct. There are no new or significant extra-axial collections. Intracranial vascular calcification is noted. There is no new hyperdense thrombus. Cerebral ventricles: Ventricular size is stable. There is no significant hydrocephalus Paranasal sinuses: No new sinus opacification or fluid level. No new sinus opacification or fluid level Mastoid air cells: No new mastoid or middle ear opacification Orbital cavities: No new orbital abnormality Bones: Unremarkable. No acute fracture. Soft tissues: Unremarkable. IMPRESSION: No new or acute findings. Remote ischemic changes also previously noted. PROCEDURE INFORMATION: Exam: CT Cervical Spine Without Contrast Exam date and time: 09/01/2023 7:50 PM Age: 73 years old Clinical indication: Injury or trauma; Blunt trauma (contusions or hematomas); Consciousness not specified; Injury date: 09/01/23; Injury details: Pain, S/P fall TECHNIQUE: Imaging protocol: Computed tomography of the cervical spine without contrast. COMPARISON: MR CERVICAL SPINE WO 08/22/2022 11:59 AM FINDINGS: Bones: Alignment is unchanged when compared with the patient's prior exam. There is reversal of the cervical lordosis. The patient has had prior laminectomies C3 through C5. There is posterior fusion C3 through C5. There is artifact in association with the fusion hardware. There is some deformity, loss of height of C7 with partial fusion across the C6-C7 disc space. This was previously identified. There is no new fracture. There is no new decrease of vertebral body height. There is no new or acute bony abnormality identified. There is disc space narrowing in the cervical spine. There are disc osteophyte complexes, spondylitic changes of the endplates, uncovertebral and facet arthropathy. There is however no new or progressive stenosis when compared with the patient's prior MR examination. There is mild foraminal narrowing. Lungs: The lung apices were not included with this field of view Vasculature: Vascular calcification is seen at the carotid bifurcations Soft tissues: There is no new soft tissue mass in the neck. IMPRESSION: Prior laminectomy, posterior fusion C3 through C5. Persistent loss of height C7 with partial fusion across the C6-C7 disc space. No new or acute findings identified. Dictated and Authenticated by: Pita Hilario MD. Ordering:MARY Sr MD
--- NOTE | 2023-09-01 20:47 | DI.VRAD_ITS ---
PROCEDURE INFORMATION: Exam: CT Thoracic Spine Without Contrast Exam date and time: 09/01/2023 8:02 PM Age: 73 years old Clinical indication: Injury or trauma; Blunt trauma (contusions or hematomas); Injury date: 09/01/23; Injury details: Fall. Pain TECHNIQUE: Imaging protocol: Computed tomography of the thoracic spine without contrast. Radiation optimization: All CT scans at this facility use at least one of these dose optimization techniques: automated exposure control; mA and/or kV adjustment per patient size (includes targeted exams where dose is matched to clinical indication); or iterative reconstruction. COMPARISON: MR THORACIC SPINE WO 08/22/2022 11:[address] lumbar spine dated 08/19/2022 FINDINGS: Bones/joints: Mild dextroscoliosis of the upper thoracic spine. Moderate multilevel osteophyte/syndesmophyte formation throughout the thoracic spine. Chronic compression of the C7 vertebra with significant degenerative changes noted in the lower cervical spine. No acute fracture. Soft tissues: Unremarkable. Lungs: Stable subsegmental atelectasis in the right lower lung. Coronary arteries: Dense coronary artery calcifications. IMPRESSION: No acute abnormality. Chronic findings as noted. PROCEDURE INFORMATION: Exam: CT Lumbar Spine Without Contrast Exam date and time: 09/01/2023 8:02 PM Age: 73 years old Clinical indication: Injury or trauma; Blunt trauma (contusions or hematomas); Injury date: 09/01/23; Injury details: Fall. Pain TECHNIQUE: Imaging protocol: Computed tomography of the lumbar spine without contrast. Radiation optimization: All CT scans at this facility use at least one of these dose optimization techniques: automated exposure control; mA and/or kV adjustment per patient size (includes targeted exams where dose is matched to clinical indication); or iterative reconstruction. COMPARISON: MR LUMBAR SPINE WO 08/22/2022 12:21 PM FINDINGS: Bones/joints: Slight levoscoliosis of the lumbar spine. Moderate multilevel osteophyte/syndesmophyte formation. Severe multilevel disc space narrowing with disc bulge and uncovertebral spurring. These findings produce severe narrowing of the bilateral L2 neural foramina and moderate narrowing of the other bilateral neural foramina. Orthopedic hardware produces fusion of L2 through S2. No vertebral body compression or acute fracture. Soft tissues: Unremarkable. IMPRESSION: No acute abnormality. Chronic findings as noted. Dictated and Authenticated by: Ishan Bryant MD. Ordering:MARY Sr MD
--- NOTE | 2023-09-01 20:49 | DI.VRAD_ITS ---
PROCEDURE INFORMATION: Exam: XR Right Femur Exam date and time: 09/01/2023 8:17 PM Age: 73 years old Clinical indication: Injury or trauma; Blunt trauma; Thigh or upper leg; Right; Injury date: 09/01/23; Injury details: Fall, pain; Prior surgery; Surgery date: 6+ months; Surgery type: Knee TECHNIQUE: Imaging protocol: Radiologic exam of the right femur. Views: 2 views. COMPARISON: CR XR PELVIS AP 09/01/2023 8:14 PM FINDINGS: Bones/joints: Right knee prosthesis in place. No evidence of hardware failure or loosening. No acute fracture. Soft tissues: Unremarkable. IMPRESSION: No acute abnormality Dictated and Authenticated by: Ishan Bryant MD. Ordering:MARY Sr MD
--- NOTE | 2023-09-01 20:51 | DI.VRAD_ITS ---
PROCEDURE INFORMATION: Exam: XR Left Femur Exam date and time: 09/01/2023 8:18 PM Age: 73 years old Clinical indication: Injury or trauma; Blunt trauma; Thigh or upper leg; Left; Injury date: 09/01/23; Injury details: Fall, pain TECHNIQUE: Imaging protocol: Radiologic exam of the left femur. Views: 2 views. COMPARISON: CR XR FEMUR LT 08/24/2022 4:17 PM FINDINGS: Bones/joints: Osseous alignment is normal. No acute fracture. Moderate degenerative changes noted in the left knee. Soft tissues: Unremarkable. IMPRESSION: No acute abnormality Dictated and Authenticated by: Ishan Bryant MD. Ordering:MARY Sr MD
--- NOTE | 2023-09-01 20:53 | DI.VRAD_ITS ---
PROCEDURE INFORMATION: Exam: XR Pelvis Exam date and time: 09/01/2023 8:14 PM Age: 73 years old Clinical indication: Injury or trauma; Blunt trauma (contusions or hematomas); Bilateral; Pelvic region; Patient HX: Pain S/P fall TECHNIQUE: Imaging protocol: Radiologic exam of the pelvis. Views: 1 or 2 view. COMPARISON: CT ABDOMEN PELVIS W 08/23/2022 4:17 PM FINDINGS: Bones/joints: Moderate degenerative changes in the lumbar spine. Mild degenerative changes in the hip joints and pubic symphysis. No acute fracture. Orthopedic hardware noted in the lumbosacral spine and producing fusion of the bilateral sacroiliac joints. Soft tissues: Unremarkable. IMPRESSION: No acute abnormality Dictated and Authenticated by: Ishan Bryant MD. Ordering:MARY Sr MD
== END 2023-09-01 21:41 | disposition home or self-care (01) ==
PROVIDERS: Emergency Provider Emergency Medicine; PCP Nurse Practitioner
DX: S70.01XA Contusion of right hip, initial encounter (principal); S30.0XXA Contusion of lower back and pelvis, initial encounter; S16.1XXA Strain of muscle, fascia and tendon at neck level, initial encounter; I44.7 Left bundle-branch block, unspecified; I45.19 Other right bundle-branch block; E78.5 Hyperlipidemia, unspecified; I48.91 Unspecified atrial fibrillation; I11.0 Hypertensive heart disease with heart failure; I50.31 Acute diastolic (congestive) heart failure; W18.39XA Other fall on same level, initial encounter; Y93.89 Activity, other specified; Y92.010 Kitchen of single-family (private) house as the place of occurrence of the external cause
CPT/HCPCS: 73552; 80053; 93005; 99285; 70450; 72125; 72128; 72131; 72170; 83735; 85025; 85610; 85730; 93010; 99284; J1885; J2060

== ENCOUNTER → 2023-09-02 13:13 | Outpatient (BNVA) | payer MEDICARE, MEDICAID, SELFPAY | PROVIDERS: PCP Nurse Practitioner; Referring Provider Nurse Practitioner; Visit Provider Urology | DX: N50.82 Scrotal pain (principal); R53.1 Weakness; R33.9 Retention of urine, unspecified; N39.0 Urinary tract infection, site not specified | CPT/HCPCS: 64425; 96372; J1580 ==

== ENCOUNTER 2023-09-12 19:23 | Outpatient (REF) | payer MEDICARE, MEDICAID, SELFPAY ==
[2023-09-12 18:06] LABS: Bilirubin Negative (Negative); Blood Negative (Negative); Clarity Sl Cloudy (Clear); Glucose Negative (Negative); Ketones Negative (Negative); Leukocyte Esterase Small (Negative); Nitrite Negative (Negative); Specific Gravity 1.015 (1.005-1.025); Urobilinogen 0.2 mg/dL (Up to 0.2); pH 5.5 (5-8)
[2023-09-12 18:23] LABS: Bacteria Negative HPF (Negative); C & S Indicated? C&S Done As Ordered; Crystals Negative HPF (Negative); Epithelial Cells Few HPF (Negative); Mucus Negative (Negative); Other Cells Moderate Yeast (Negative); RBC Negative HPF (0-2); WBC 20-50 HPF (0-5)
== END 2023-09-12 19:24 | disposition home or self-care (01) ==
LOC: LBN 19:23
PROVIDERS: PCP Nurse Practitioner; Visit Provider Urology
DX: R33.9 Retention of urine, unspecified (principal); R31.9 Hematuria, unspecified; N39.0 Urinary tract infection, site not specified
CPT/HCPCS: 81003; 81015; 87086

== ENCOUNTER → 2023-09-16 12:09 | Outpatient (BNVA) | payer MEDICARE, MEDICAID, SELFPAY | PROVIDERS: PCP Nurse Practitioner; Referring Provider Nurse Practitioner; Visit Provider Urology | DX: N50.82 Scrotal pain (principal); R10.31 Right lower quadrant pain; R10.32 Left lower quadrant pain | CPT/HCPCS: 64425 ==

== ENCOUNTER → 2023-09-19 14:43 | Outpatient (BNVA) | payer MEDICARE, MEDICAID, SELFPAY | PROVIDERS: PCP Nurse Practitioner; Referring Provider Nurse Practitioner; Visit Provider Urology | DX: N50.82 Scrotal pain (principal); R10.31 Right lower quadrant pain; R10.32 Left lower quadrant pain | CPT/HCPCS: 64425 ==

== ENCOUNTER → 2023-09-23 10:38 | Outpatient (BNVA) | payer MEDICARE, MEDICAID, SELFPAY | PROVIDERS: PCP Nurse Practitioner; Referring Provider Nurse Practitioner; Visit Provider Urology | DX: N50.82 Scrotal pain (principal); R10.31 Right lower quadrant pain; R10.32 Left lower quadrant pain | CPT/HCPCS: 64425 ==

== ENCOUNTER → 2023-09-26 09:07 | Outpatient (BNVA) | payer MEDICARE, MEDICAID, SELFPAY | PROVIDERS: PCP Nurse Practitioner; Referring Provider Nurse Practitioner; Visit Provider Urology | DX: N50.82 Scrotal pain (principal); R10.31 Right lower quadrant pain; R10.32 Left lower quadrant pain; N39.0 Urinary tract infection, site not specified; R33.8 Other retention of urine | CPT/HCPCS: 64425; 81003 ==

== ENCOUNTER 2023-09-26 09:53 | Outpatient (REF) | payer MEDICARE, MEDICAID, SELFPAY | END 2023-09-26 09:54 | disposition home or self-care (01) | LOC: LBN 09:53 | PROVIDERS: PCP Nurse Practitioner; Visit Provider Urology | DX: R33.9 Retention of urine, unspecified (principal); N39.0 Urinary tract infection, site not specified; N50.82 Scrotal pain | CPT/HCPCS: 87077; 87086; 87186 ==

== ENCOUNTER → 2023-09-30 15:56 | Outpatient (BNVA) | payer MEDICARE, MEDICAID, SELFPAY | PROVIDERS: PCP Nurse Practitioner; Referring Provider Nurse Practitioner; Visit Provider Urology | DX: N50.82 Scrotal pain (principal); R10.31 Right lower quadrant pain; R10.32 Left lower quadrant pain; Z87.440 Personal history of urinary (tract) infections | CPT/HCPCS: 64425; 96372; J0696 ==

== ENCOUNTER → 2023-10-03 15:04 | Outpatient (BNVA) | payer MEDICARE, MEDICAID, SELFPAY | PROVIDERS: PCP Nurse Practitioner; Referring Provider Nurse Practitioner; Visit Provider Urology | DX: N50.82 Scrotal pain (principal); R10.31 Right lower quadrant pain; R10.32 Left lower quadrant pain | CPT/HCPCS: 64425 ==

== ENCOUNTER → 2023-10-07 13:34 | Outpatient (BNVA) | payer MEDICARE, MEDICAID, SELFPAY | PROVIDERS: PCP Nurse Practitioner; Referring Provider Nurse Practitioner; Visit Provider Urology | DX: N50.82 Scrotal pain (principal); R10.31 Right lower quadrant pain; R10.32 Left lower quadrant pain | CPT/HCPCS: 64425 ==

== ENCOUNTER → 2023-10-10 16:03 | Outpatient (BNVA) | payer MEDICARE, MEDICAID, SELFPAY | PROVIDERS: PCP Nurse Practitioner; Referring Provider Nurse Practitioner; Visit Provider Urology | DX: N39.0 Urinary tract infection, site not specified (principal); N50.82 Scrotal pain; R10.31 Right lower quadrant pain; R10.32 Left lower quadrant pain | CPT/HCPCS: 64425; 81003 ==

== ENCOUNTER 2023-10-10 16:16 | Outpatient (REF) | payer MEDICARE, MEDICAID, SELFPAY | END 2023-10-10 16:17 | disposition home or self-care (01) | LOC: LBN 16:16 | PROVIDERS: PCP Nurse Practitioner; Visit Provider Urology | DX: N39.0 Urinary tract infection, site not specified (principal); N50.82 Scrotal pain | CPT/HCPCS: 87077; 87086; 87186 ==

== ENCOUNTER → 2023-10-14 14:34 | Outpatient (BNVA) | payer MEDICARE, MEDICAID, SELFPAY | PROVIDERS: PCP Nurse Practitioner; Referring Provider Nurse Practitioner; Visit Provider Urology | DX: N50.82 Scrotal pain (principal); R10.31 Right lower quadrant pain; R10.32 Left lower quadrant pain | CPT/HCPCS: 64425 ==

== ENCOUNTER → 2023-10-17 15:27 | Outpatient (BNVA) | payer MEDICARE, MEDICAID, SELFPAY | PROVIDERS: PCP Nurse Practitioner; Referring Provider Nurse Practitioner; Visit Provider Urology | DX: N50.82 Scrotal pain (principal); R10.31 Right lower quadrant pain; R10.32 Left lower quadrant pain | CPT/HCPCS: 64425; J2920 ==

== ENCOUNTER → 2023-10-22 09:15 | Outpatient (BNVA) | payer MEDICARE, MEDICAID, SELFPAY | PROVIDERS: PCP Nurse Practitioner; Referring Provider Nurse Practitioner; Visit Provider Urology | DX: N50.82 Scrotal pain (principal); R10.31 Right lower quadrant pain; R10.32 Left lower quadrant pain | CPT/HCPCS: 64425; 81003 ==

== ENCOUNTER 2023-10-22 10:02 | Outpatient (REF) | payer MEDICARE, MEDICAID, SELFPAY | END 2023-10-22 10:03 | disposition home or self-care (01) | LOC: LBN 10:02 | PROVIDERS: PCP Nurse Practitioner; Visit Provider Urology | DX: R33.9 Retention of urine, unspecified (principal); N39.0 Urinary tract infection, site not specified; R31.9 Hematuria, unspecified; N50.82 Scrotal pain | CPT/HCPCS: 87077; 87086; 87186 ==

== ENCOUNTER → 2023-10-25 15:03 | Outpatient (BNVA) | payer MEDICARE, MEDICAID, SELFPAY | PROVIDERS: PCP Nurse Practitioner; Referring Provider Nurse Practitioner; Visit Provider Urology | DX: N50.82 Scrotal pain (principal); R10.31 Right lower quadrant pain; R10.32 Left lower quadrant pain; N39.0 Urinary tract infection, site not specified | CPT/HCPCS: 64425; J0696 ==

== ENCOUNTER → 2023-10-28 13:58 | Outpatient (BNVA) | payer MEDICARE, MEDICAID, SELFPAY | PROVIDERS: PCP Nurse Practitioner; Referring Provider Nurse Practitioner; Visit Provider Urology | DX: N50.82 Scrotal pain (principal); R10.31 Right lower quadrant pain; R10.32 Left lower quadrant pain; N39.0 Urinary tract infection, site not specified | CPT/HCPCS: 64425 ==

== ENCOUNTER 2023-10-28 19:01 | Outpatient (REF) | payer MEDICARE, SELFPAY | END 2023-10-28 19:02 | disposition home or self-care (01) | LOC: LBN 19:01 | PROVIDERS: PCP Nurse Practitioner; Visit Provider Urology | DX: N39.0 Urinary tract infection, site not specified (principal); R82.89 Other abnormal findings on cytological and histological examination of urine | CPT/HCPCS: 87086 ==

== ENCOUNTER → 2023-10-31 15:37 | Outpatient (BNVA) | payer MEDICARE, SELFPAY | PROVIDERS: PCP Nurse Practitioner; Visit Provider Urology | DX: N50.82 Scrotal pain (principal); R10.31 Right lower quadrant pain; R10.32 Left lower quadrant pain | CPT/HCPCS: 64425; J2920 ==

== ENCOUNTER → 2023-11-11 16:03 | Outpatient (BNVA) | payer MEDICARE, SELFPAY | PROVIDERS: PCP Nurse Practitioner; Visit Provider Urology | DX: N50.82 Scrotal pain (principal); R10.31 Right lower quadrant pain; R10.32 Left lower quadrant pain | CPT/HCPCS: 64425 ==

== ENCOUNTER → 2023-11-14 14:53 | Outpatient (BNVA) | payer MEDICARE, SELFPAY | PROVIDERS: PCP Nurse Practitioner; Visit Provider Urology | DX: N50.82 Scrotal pain (principal); R10.31 Right lower quadrant pain; R10.32 Left lower quadrant pain | CPT/HCPCS: 64425 ==

== ENCOUNTER → 2023-11-18 15:30 | Outpatient (BNVA) | payer MEDICARE, SELFPAY | PROVIDERS: PCP Nurse Practitioner; Visit Provider Urology | DX: N50.82 Scrotal pain (principal); R10.31 Right lower quadrant pain; R10.32 Left lower quadrant pain | CPT/HCPCS: 64425 ==

== ENCOUNTER 2023-11-21 18:07 | Outpatient (REF) | payer MEDICARE, SELFPAY | END 2023-11-21 18:08 | disposition home or self-care (01) | LOC: LBN 18:07 | PROVIDERS: PCP Nurse Practitioner; Visit Provider Urology | DX: N50.82 Scrotal pain (principal) | CPT/HCPCS: 87077; 87086; 87186 ==

== ENCOUNTER 2024-02-06 14:26 | Outpatient (REF) | payer OTHER, SELFPAY ==
[2024-02-06 15:23] LABS: Bilirubin Negative (Negative); Blood Negative (Negative); Clarity Sl Cloudy (Clear); Glucose Negative (Negative); Ketones Negative (Negative); Leukocyte Esterase Moderate (Negative); Nitrite Negative (Negative); Specific Gravity 1.015 (1.005-1.025); Urobilinogen 0.2 mg/dL (Up to 0.2)
[2024-02-06 15:33] LABS: Bacteria Rare HPF (Negative); C & S Indicated? C&S Done As Ordered; Casts Negative LPF (Negative); Crystals Negative HPF (Negative); Epithelial Cells Few HPF (Negative); Mucus Negative (Negative); RBC 0-2 HPF (0-2); WBC 20-50 HPF (0-5)
== END 2024-02-06 14:27 | disposition home or self-care (01) ==
LOC: LBN 14:26
PROVIDERS: PCP Nurse Practitioner; Visit Provider Urology
DX: N50.82 Scrotal pain (principal)
CPT/HCPCS: 81003; 81015; 87086

== ENCOUNTER 2024-02-18 10:16 | Outpatient (REF) | payer OTHER, SELFPAY ==
[2024-02-18 11:31] LABS: Bilirubin Negative (Negative); Blood Trace-intact (Negative); Clarity Cloudy (Clear); Glucose Negative (Negative); Ketones Negative (Negative); Leukocyte Esterase Large (Negative); Nitrite Negative (Negative); Specific Gravity 1.015 (1.005-1.025); Urobilinogen 0.2 mg/dL (Up to 0.2); pH 5.5 (5-8)
[2024-02-18 11:44] LABS: Bacteria Many HPF (Negative); C & S Indicated? C&S Done As Ordered; Epithelial Cells Many HPF (Negative); WBC >50 HPF (0-5)
== END 2024-02-18 10:17 | disposition home or self-care (01) ==
LOC: LBN 10:16
PROVIDERS: PCP Nurse Practitioner; Visit Provider Urology
DX: N39.0 Urinary tract infection, site not specified (principal); N50.82 Scrotal pain
CPT/HCPCS: 81003; 81015; 87086

== ENCOUNTER 2024-02-28 20:26 | Outpatient (REF) | payer OTHER, SELFPAY | END 2024-02-28 20:27 | disposition home or self-care (01) | LOC: LBN 20:26 | PROVIDERS: PCP Nurse Practitioner; Visit Provider Urology | DX: N50.82 Scrotal pain (principal); R33.9 Retention of urine, unspecified; R82.89 Other abnormal findings on cytological and histological examination of urine | CPT/HCPCS: 87086 ==

== ENCOUNTER 2024-05-30 07:38 | Emergency (ER) | payer OTHER, SELFPAY ==
[2024-05-30 07:42] VITALS: BP 128/77; PULSE 86; RESP 20; TEMP 36.6; O2SAT 98
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
[2024-05-30] MEDS: Lidocaine 2% Jelly 6 ML SYR (08:15)
[2024-05-30 08:30] VITALS: BP 128/77; PULSE 86; RESP 20; TEMP 36.6; O2SAT 98
[2024-05-30 08:35] LABS: Bilirubin Negative (Negative); Blood Negative (Negative); Clarity Sl Cloudy (Clear); Glucose Negative (Negative); Ketones Trace mg/dL (Negative); Leukocyte Esterase Negative (Negative); Nitrite Positive (Negative); Specific Gravity 1.015 (1.005-1.025); Urobilinogen 0.2 mg/dL (Up to 0.2)
[2024-05-30 08:42] LABS: Bacteria Moderate HPF (Negative); C & S Indicated? No/Sq. Contamination; Casts Negative LPF (Negative); Crystals Negative HPF (Negative); Epithelial Cells Moderate HPF (Negative); Mucus Negative (Negative); RBC 0-2 HPF (0-2)
[2024-05-30] MEDS: levoFLOXacin 500 MG, levoFLOXacin 250 MG 750 MG PO (09:03)
[2024-05-30 09:04] VITALS: BP 117/84; PULSE 83; RESP 18; O2SAT 95
== END 2024-05-30 09:14 | disposition home or self-care (01) ==
LOC: ER 09:13
PROVIDERS: Emergency Provider Student in an Organized Health Care Education/Training Program; PCP Nurse Practitioner
DX: R33.9 Retention of urine, unspecified (principal); N39.0 Urinary tract infection, site not specified; I11.0 Hypertensive heart disease with heart failure; I50.32 Chronic diastolic (congestive) heart failure; E78.5 Hyperlipidemia, unspecified; F17.290 Nicotine dependence, other tobacco product, uncomplicated; Z98.1 Arthrodesis status
CPT/HCPCS: 76705; 81003; 81015

== ENCOUNTER 2024-06-01 15:19 | Outpatient (REF) | payer OTHER, SELFPAY ==
[2024-06-01 16:51] LABS: Bilirubin Negative (Negative); Blood Negative (Negative); Clarity Clear (Clear); Glucose Negative (Negative); Ketones Negative (Negative); Leukocyte Esterase Negative (Negative); Nitrite Negative (Negative); Specific Gravity 1.015 (1.005-1.025); Urobilinogen 0.2 mg/dL (Up to 0.2); pH 5.5 (5-8)
== END 2024-06-01 15:20 | disposition home or self-care (01) ==
LOC: LBN 15:19
PROVIDERS: PCP Nurse Practitioner; Visit Provider Urology
DX: R33.8 Other retention of urine (principal); N39.0 Urinary tract infection, site not specified; B96.20 Unspecified Escherichia coli [E. coli] as the cause of diseases classified elsewhere
CPT/HCPCS: 87077; 81003; 87086; 87186

== ENCOUNTER 2024-06-01 15:56 | Outpatient (CLI) | payer OTHER, SELFPAY ==
[2024-06-01 16:32] LABS: BUN 22 mg/dL (7-18); CREATININE 0.8 mg/dL (0.70-1.30); Estimated GFR 92.87 (mL/min/1.73m2)
[2024-06-08 13:09] LABS: Testosterone, Total 306 ng/dL (240-950)
== END 2024-06-01 15:57 | disposition home or self-care (01) ==
PROVIDERS: PCP Nurse Practitioner; Visit Provider Urology
DX: R33.9 Retention of urine, unspecified (principal); E29.1 Testicular hypofunction
CPT/HCPCS: 36415; 84403; 84520; 82565

== ENCOUNTER 2024-06-19 20:41 | Outpatient (REF) | payer OTHER, SELFPAY ==
[2024-06-19 17:41] LABS: Bilirubin Negative (Negative); Blood Negative (Negative); Clarity Clear (Clear); Glucose Negative (Negative); Ketones Negative (Negative); Leukocyte Esterase Negative (Negative); Nitrite Positive (Negative); Specific Gravity 1.015 (1.005-1.025); Urobilinogen 0.2 mg/dL (Up to 0.2); pH 5.5 (5-8)
[2024-06-19 18:01] LABS: Bacteria Packed HPF (Negative); C & S Indicated? C&S Done As Ordered; Casts Negative LPF (Negative); Crystals Negative HPF (Negative); Epithelial Cells Few HPF (Negative); Mucus Negative (Negative); RBC Negative HPF (0-2)
== END 2024-06-19 20:42 | disposition home or self-care (01) ==
LOC: LBN 20:41
PROVIDERS: PCP Nurse Practitioner; Visit Provider Urology
DX: N39.0 Urinary tract infection, site not specified (principal); R33.9 Retention of urine, unspecified; B96.20 Unspecified Escherichia coli [E. coli] as the cause of diseases classified elsewhere; B96.89 Other specified bacterial agents as the cause of diseases classified elsewhere; Z16.24 Resistance to multiple antibiotics
CPT/HCPCS: 87077; 81003; 81015; 87086; 87186

== ENCOUNTER 2024-07-20 19:20 | Outpatient (REF) | payer MEDICARE, MEDICAID, SELFPAY ==
[2024-07-20 17:43] LABS: Bilirubin Negative (Negative); Blood Negative (Negative); Clarity Clear (Clear); Glucose Negative (Negative); Ketones Negative (Negative); Leukocyte Esterase Small (Negative); Nitrite Negative (Negative); Urobilinogen 0.2 mg/dL (Up to 0.2); pH 5.5 (5-8)
[2024-07-20 17:51] LABS: Epithelial Cells Few HPF (Negative); WBC >50 HPF (0-5)
[2024-07-20 17:52] LABS: Bacteria Packed HPF (Negative); C & S Indicated? C&S Done As Ordered; Casts Negative LPF (Negative); Crystals Negative HPF (Negative); Mucus Negative (Negative); Other Cells Moderate Yeast (Negative)
== END 2024-07-20 19:21 | disposition home or self-care (01) ==
LOC: LBN 19:20
PROVIDERS: PCP Nurse Practitioner; Visit Provider Urology
DX: R33.9 Retention of urine, unspecified (principal)
CPT/HCPCS: 81003; 81015; 87086

== ENCOUNTER → 2024-07-27 15:22 | Outpatient (BNVA) | payer MEDICARE, SELFPAY | PROVIDERS: PCP Nurse Practitioner; Visit Provider Urology | DX: N50.82 Scrotal pain (principal) | CPT/HCPCS: 64425 ==

== ENCOUNTER 2024-07-30 17:08 | Emergency (ER) | payer MEDICARE, MEDICAID, SELFPAY ==
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
[2024-07-30 17:09] VITALS: BP 137/76; PULSE 80; RESP 16; TEMP 37; O2SAT 97
--- NOTE | 2024-07-30 17:15 | DI.RAD_ITS ---
Exam(s) XR HAND RT COMPLETE EXAM: XR HAND RT COMPLETE CLINICAL HISTORY: hand vs saw. TECHNIQUE: 2D digital imaging was performed of the right hand. Three images were obtained. AP, lateral and oblique views were obtained. COMPARISON: No exams were available for comparison FINDINGS: BONES: There is an acute oblique fracture through the base of the proximal phalanx of the thumb. The fracture extends into the metacarpophalangeal joint. There is almost 1 cm displacement of the distal fracture. No bony destructive lesion is seen. JOINTS: No dislocation present. There are degenerative changes seen in the hand particularly interphalangeal joint of the thumb. SOFT TISSUE: There is soft tissue swelling of the thumb around the MCP joint. IMPRESSION: Acute displaced intra-articular fracture through the base of the proximal phalanx of the thumb with associated soft tissue swelling. DATA REPOSITORY: RADIATION DOSE DELIVERED:
[2024-07-30 17:36] LABS: Abs Immature Grans 0.02 10^3/uL (0.0-0.06); Absolute Basophil Count 0.03 10^3/uL (0.0-0.2); Absolute Eosinophil Count 0.21 10^3/uL (0.0-0.7); Absolute Lymphocyte Count 1.58 10^3/uL (1.2-3.4); Absolute Monocyte Count 0.66 10^3/uL (0.1-0.8); Absolute Neutrophil Count 4.41 10^3/uL (1.2-6.7); Basophils % 0.4 %; HCT 41.6 % (40.0-50.0); HGB 13.6 g/dL (13.5-17.5); Immature Grans % 0.3 %; Lymphocytes % 22.9 %; MCH 29.7 pg (27.0-33.0); MCHC 32.7 % (32.0-36.0); MCV 91 fL (80-95); MPV 8.6 fL (8.0-11.0); Monocytes % 9.6 %; Neutrophils % 63.8 %; Platelet Count 214 10^3/uL (130-400); RBC 4.58 10^6/uL (4.36-5.78); RDW 15.2 % (11.8-14.1); RDW-SD 51.3 fL; WBC 6.91 10^3/uL (4.4-10.8)
[2024-07-30] MEDS: ceFAZolin 2 GM/50 ML BAG IV (17:36)
[2024-07-30] MEDS: Bupivacaine 0.5% Pres-Free 30 ML VIAL (17:37)
[2024-07-30 17:51] LABS: ALT 20 U/L (16-63); AST 20 U/L (15-37); Albumin 3.8 g/dL (3.4-5.0); Alkaline Phosphatase 100 U/L (46-116); Anion Gap 8.1 mmol/L (3-11); BUN 30 mg/dL (7-18); Bilirubin, Total 0.9 mg/dL (0.2-1.0); CO2 27.9 mmol/L (21.0-32.0); CREATININE 0.9 mg/dL (0.70-1.30); Calcium 9.4 mg/dL (8.5-10.1); Chloride 101 mmol/L (98-107); Estimated GFR 89.07 (mL/min/1.73m2); Glucose 102 mg/dL (74-106); Potassium 4.3 mmol/L (3.5-5.1); Sodium 137 mmol/L (136-145); Total Protein 7.9 g/dL (6.4-8.2)
[2024-07-30] MEDS: Povidone-Iodine Soln. 118 ML BTL (17:56)
== END 2024-07-30 21:10 | disposition home or self-care (01) ==
PROVIDERS: Emergency Provider Physician Assistant; PCP Nurse Practitioner
DX: S62.511B Displaced fracture of proximal phalanx of right thumb, initial encounter for open fracture (principal); S56.301A Unspecified injury of extensor or abductor muscles, fascia and tendons of right thumb at forearm level, initial encounter; I48.0 Paroxysmal atrial fibrillation; E78.5 Hyperlipidemia, unspecified; I11.0 Hypertensive heart disease with heart failure; I50.32 Chronic diastolic (congestive) heart failure; Z98.1 Arthrodesis status; W29.8XXA Contact with other powered hand tools and household machinery, initial encounter; Y93.89 Activity, other specified
CPT/HCPCS: 12002; 36415; 80053; 96365; 99284; 73130; 85025; J0665; J0690

== ENCOUNTER → 2024-08-24 15:16 | Outpatient (BNVA) | payer MEDICARE, SELFPAY | PROVIDERS: PCP Nurse Practitioner; Visit Provider Urology | DX: N39.0 Urinary tract infection, site not specified (principal); B96.89 Other specified bacterial agents as the cause of diseases classified elsewhere; B95.2 Enterococcus as the cause of diseases classified elsewhere | CPT/HCPCS: 99214; 81002 ==

== ENCOUNTER 2024-08-24 18:38 | Outpatient (REF) | payer MEDICARE, SELFPAY ==
[2024-08-24 16:42] LABS: Glucose Negative (Negative)
[2024-08-24 16:52] LABS: RBC 20-50 HPF (0-2); WBC >50 HPF (0-5)
== END 2024-08-24 18:39 | disposition home or self-care (01) ==
LOC: LBN 18:38
PROVIDERS: PCP Nurse Practitioner; Visit Provider Urology
DX: R33.9 Retention of urine, unspecified (principal)
CPT/HCPCS: 87077; 81003; 81015; 87086; 87186

== ENCOUNTER 2024-09-08 13:07 | Outpatient (REF) | payer MEDICARE, SELFPAY ==
[2024-09-08 13:15] LABS: Glucose Negative (Negative)
[2024-09-08 13:33] LABS: RBC 0-2 HPF (0-2); WBC >50 HPF (0-5)
== END 2024-09-08 13:08 | disposition home or self-care (01) ==
LOC: LBN 13:07
PROVIDERS: PCP Nurse Practitioner; Visit Provider Urology
DX: N39.0 Urinary tract infection, site not specified (principal); R33.9 Retention of urine, unspecified
CPT/HCPCS: 87077; 81003; 81015; 87086; 87186

== ENCOUNTER 2024-09-23 16:13 | Outpatient (REF) | payer MEDICARE, SELFPAY ==
[2024-09-23 15:10] LABS: Glucose Negative (Negative)
[2024-09-23 18:54] LABS: WBC >50 HPF (0-5)
== END 2024-09-23 16:14 | disposition home or self-care (01) ==
LOC: LBN 16:13
PROVIDERS: PCP Nurse Practitioner; Visit Provider Urology
DX: N39.0 Urinary tract infection, site not specified (principal)
CPT/HCPCS: 87077; 81003; 81015; 87086; 87186

== ENCOUNTER 2024-10-07 12:00 | Outpatient (CLI) | payer MEDICARE, SELFPAY ==
[2024-10-07 11:35] LABS: Glucose Negative (Negative)
[2024-10-07 11:45] LABS: RBC 0-2 HPF (0-2); WBC >50 HPF (0-5)
== END 2024-10-07 12:01 | disposition home or self-care (01) ==
LOC: LBO 12:00
PROVIDERS: PCP Nurse Practitioner; Visit Provider Urology
DX: R31.9 Hematuria, unspecified (principal); R33.9 Retention of urine, unspecified
CPT/HCPCS: 87077; 81003; 81015; 87086; 87186

== ENCOUNTER 2024-10-21 17:22 | Outpatient (REF) | payer MEDICARE, SELFPAY ==
[2024-10-21 19:27] LABS: Glucose Negative (Negative)
[2024-10-21 19:36] LABS: RBC Negative HPF (0-2); WBC >50 HPF (0-5)
== END 2024-10-21 17:23 | disposition home or self-care (01) ==
LOC: LBN 17:22
PROVIDERS: PCP Nurse Practitioner; Visit Provider Urology
DX: R33.9 Retention of urine, unspecified (principal)
CPT/HCPCS: 87077; 81003; 81015; 87086; 87186

== ENCOUNTER 2024-11-05 00:19 | Outpatient (RCR) | payer MEDICARE, MEDICAID, SELFPAY ==
[2024-10-30] MEDS: Normal Saline Flush 10 ML SYR IVP (09:59)
[2024-10-30] MEDS: cefTRIAXone 1 GM/50 ML BAG IVPB (09:59)
[2024-10-31 09:13] VITALS: BP 114/67; O2SAT 99
[2024-10-31] MEDS: cefTRIAXone 1 GM/50 ML BAG IVPB (09:21)
[2024-10-31] MEDS: Normal Saline Flush 10 ML SYR IVP (09:22)
[2024-11-01] MEDS: cefTRIAXone 1 GM/50 ML BAG IVPB (09:48)
[2024-11-01] MEDS: Normal Saline Flush 10 ML SYR IVP (09:50)
[2024-11-02] MEDS: cefTRIAXone 1 GM/50 ML BAG IVPB (11:03)
[2024-11-02] MEDS: Normal Saline Flush 10 ML SYR IVP (11:03)
[2024-11-03] MEDS: cefTRIAXone 1 GM/50 ML BAG IVPB (14:24)
[2024-11-03] MEDS: Normal Saline Flush 10 ML SYR IVP (14:37)
[2024-11-04] MEDS: Normal Saline Flush 10 ML SYR IVP (08:59)
[2024-11-04] MEDS: cefTRIAXone 1 GM/50 ML BAG IVPB (08:59)
[2024-11-05] MEDS: cefTRIAXone 1 GM/50 ML BAG IVPB (09:00)
[2024-11-05] MEDS: Normal Saline Flush 10 ML SYR IVP (09:01)
== END 2024-11-17 23:59 | disposition home or self-care (01) ==
LOC: INF 00:19
PROVIDERS: PCP Nurse Practitioner; Visit Provider Urology
DX: N39.0 Urinary tract infection, site not specified (principal); Z87.440 Personal history of urinary (tract) infections
CPT/HCPCS: 96365; J0696

== ENCOUNTER 2024-11-06 22:11 | Outpatient (REF) | payer MEDICARE, SELFPAY ==
[2024-11-06 20:10] LABS: Glucose Negative (Negative)
[2024-11-06 20:19] LABS: RBC Negative HPF (0-2); WBC 0-2 HPF (0-5)
== END 2024-11-06 22:12 | disposition home or self-care (01) ==
LOC: LBN 22:11
PROVIDERS: PCP Nurse Practitioner; Visit Provider Urology
DX: R33.9 Retention of urine, unspecified (principal)
CPT/HCPCS: 81003; 81015

== ENCOUNTER 2024-12-16 12:42 | Outpatient (REF) | payer MEDICARE, MEDICAID, SELFPAY ==
[2024-12-16 14:54] LABS: Glucose Negative (Negative)
[2024-12-16 15:28] LABS: WBC 20-50 HPF (0-5)
== END 2024-12-16 12:43 | disposition home or self-care (01) ==
LOC: LBN 12:42
PROVIDERS: PCP Nurse Practitioner; Visit Provider Urology
DX: R33.9 Retention of urine, unspecified (principal)
CPT/HCPCS: 87077; 81003; 81015; 87086; 87186

== ENCOUNTER → 2024-12-17 14:48 | Outpatient (BNVA) | payer MEDICARE, MEDICAID, SELFPAY | PROVIDERS: PCP Nurse Practitioner; Referring Provider Nurse Practitioner; Visit Provider Urology | DX: N39.0 Urinary tract infection, site not specified (principal); B96.89 Other specified bacterial agents as the cause of diseases classified elsewhere; R39.15 Urgency of urination; N39.498 Other specified urinary incontinence | CPT/HCPCS: 99215 ==

== ENCOUNTER 2025-01-29 14:29 | Outpatient (REF) | payer MEDICARE, MEDICAID, SELFPAY ==
[2025-01-29 18:19] LABS: Glucose Negative (Negative)
== END 2025-01-29 14:30 | disposition home or self-care (01) ==
LOC: LBN 14:29
PROVIDERS: PCP Nurse Practitioner; Visit Provider Urology
DX: R33.9 Retention of urine, unspecified (principal); N39.0 Urinary tract infection, site not specified
CPT/HCPCS: 87077; 81003; 81015; 87086; 87186